=== PATIENT | male | born 1955 | race Caucasian/White ===

== ENCOUNTER 2018-09-18 13:19 | Inpatient (IN) | payer MEDICARE, MEDICAID ==
[2018-09-18] MEDS ORDERED: Albuterol/Ipratropium 3.0-0.5 MG/3 ML Neb Soln NEB ONE (13:25)
[2018-09-18] MEDS ORDERED: Sodium Chloride 0.9% 10 ML Syringe FLUSH PRN (13:26)
--- NOTE | 2018-09-18 13:36 | EDM.PDOC ---
ED HPI GENERAL MEDICAL PROBLEM - General Chief Complaint: Respiratory Problem Stated Complaint: SHORTNESS OF BREATH Time Seen by Provider: 09/18/18 13:25 Source of Information: Reports: Patient, Provider History Limitations: Reports: Other (no available old records) - History of Present Illness INITIAL COMMENTS - FREE TEXT/NARRATIVE: 62 yo male sent from the clinic to the ER for hypoxia with sats in the upper 70' s. Was sent over with a simple mask with oxygen running at 4 liters/min. Is a known smoker. Lives with a brother who is with him here today. Has known COPD. Onset: Gradual Duration: Day(s):, Getting Worse Location: Reports: Chest Quality: Reports: Other (no chest pains) Severity: Severe Improves with: Reports: Other (oxygen) Worsens with: Reports: Movement (exertion) Context: Reports: Other (known COPD) Associated Symptoms: Reports: Cough, Shortness of Breath. Denies: Chest Pain, Diaphoresis, Fever/Chills Treatments FIELD APPLICATION ENGINEER: Reports: Other (see below) (oxygen intiated in the clinic) Bilateral Leg Pain Score (Numeric/FACES): 8 - Related Data Allergies Allergy/AdvReac Type Severity Reaction Status Date / Time metformin Allergy Hives Verified 09/18/18 13:34 Home Meds: Home Meds Albuterol [Proventil HFA] 2 puff INH ASDIRECTED PRN 09/18/18 [History] Albuterol/Ipratropium [DuoNeb 3.0-0.5 MG/3 ML] 3 ml INH ASDIRECTED PRN 09/18/18 [History] Aspirin [Halfprin] 81 mg PO DAILY 09/18/18 [History] Budesonide/Formoterol [Symbicort 160-4.5 MCG] 2 puff INH BID 09/18/18 [History] Glucosamn/Condroitn/C/Mn/[place] [[facility]vs Glucosamine Chondroit Cplt] 1 tab PO DAILY 09/18/18 [History] Levothyroxine [Synthroid] 50 mcg PO DAILY 09/18/18 [History] Lisinopril 40 mg PO DAILY 09/18/18 [History] Omeprazole Magnesium [Prilosec Otc] 20 mg PO DAILY 09/18/18 [History] Vitamin E 1,000 unit PO DAILY 09/18/18 [History] atorvaSTATin [Lipitor] 40 mg PO DAILY 09/18/18 [History] ED ROS GENERAL - Review of Systems Review Of Systems: See Below Constitutional: Reports: No Symptoms HEENT: Reports: No Symptoms Respiratory: Reports: Shortness of Breath, Wheezing, Cough. Denies: Pleuritic Chest Pain, Hemoptysis Cardiovascular: Reports: No Symptoms Endocrine: Reports: No Symptoms GI/Abdominal: Reports: No Symptoms : Reports: No Symptoms Musculoskeletal: Reports: No Symptoms Skin: Reports: No Symptoms Neurological: Reports: No Symptoms Psychiatric: Reports: No Symptoms ED EXAM, GENERAL - Physical Exam Exam: See Below Exam Limited By: No Limitations General Appearance: Alert, WD/WN, Moderate Distress, Obese Eye Exam: Bilateral Eye: Normal Inspection Ears: Normal External Exam, Normal Canal, Normal TMs Ear Exam: Bilateral Ear: Auricle Normal, Canal Normal, TM normal Nose: Normal Inspection, No Blood Throat/Mouth: Normal Inspection, Normal Lips, Normal Oropharynx, Normal Voice, No Airway Compromise. No: Normal Teeth (edentulous, speech difficult to comprehend) Head: Atraumatic, Normocephalic Neck: Normal Inspection Respiratory/Chest: Decreased Breath Sounds, Wheezing, Other (tachypnea) Cardiovascular: Regular Rate, Rhythm GI/Abdominal: Normal Bowel Sounds, Soft, Non-Tender, No Distention Back Exam: Normal Inspection Extremities: Pedal Edema (trace pitting edema to both LE's below the knees.). No: No Pedal Edema Neurological: Alert, Oriented, CN II-XII Intact, Normal Cognition, No Motor/ Sensory Deficits Psychiatric: Normal Affect, Normal Mood Skin Exam: Warm, Dry, Intact, Normal Color, No Rash Course - Vital Signs Text/Narrative:: Dr. Roman called @ 1411h Last Recorded V/S: Last Vital Signs Temp 35.4 C 09/18/18 13:50 Pulse 84 09/18/18 13:50 Resp 26 H 09/18/18 13:50 BP 142/94 H 09/18/18 13:50 Pulse Ox 95 09/18/18 13:50 - Orders/Labs/Meds Orders: Active Orders 24 hr Category Date Time Status Oxygen Therapy Adult [Oxygen Therapy, ED] [RC] Care 09/18/18 13:27 Active ASDIRECTED RT Aerosol Therapy [RC] ASDIRECTED Care 09/18/18 13:25 Active RT Aerosol Therapy [RC] ASDIRECTED Care 09/18/18 13:50 Active ABG [BLOOD GAS ARTERIAL] [BG] Stat Lab 09/18/18 14:30 Ordered UA W/MICROSCOPIC [URIN] Stat Lab 09/18/18 13:25 Ordered Sodium Chloride 0.9% [Saline Flush] Med 09/18/18 13:26 Active 10 ml FLUSH ASDIRECTED PRN Saline Lock Insert [OM.PC] Routine Oth 09/18/18 13:26 Ordered Medication Orders Sodium Chloride (Saline Flush) 10 ml FLUSH ASDIRECTED PRN PRN Reason: Keep Vein Open Last Admin: 09/18/18 14:07 Dose: 10 ml Labs: Laboratory Tests 09/18/18 09/18/18 09/18/18 Range/Units 13:39 13:45 13:45 WBC 17.0 H (4.5-11.0) K/uL RBC 4.25 L (4.30-5.90) M/uL Hgb 11.7 L (12.0-15.0) g/dL Hct 35.5 L (40.0-54.0) % MCV 84 (80-98) fL MCH 28 (27-31) pg MCHC 33 (32-36) % Plt Count 405 H (150-400) K/uL D-Dimer, Quantitative (0.0-400.0) ng/mL Puncture Site Rt radial ABG pH 7.282 L (7.350-7.450) ABG pCO2 65.4 H (35.0-42.0) mmHg ABG pO2 74.8 L (75.0-100.0) mmHg ABG HCO3 29.9 H (22.0-26.0) mmol/L ABG Total CO2 27.9 H (23.0-27.0) mmol/L ABG O2 Saturation 92.6 L (95.0-98.0) % ABG O2 Content 15.0 (15.0-23.0) %vol ABG Base Excess 2.2 mm/L ABG Hemoglobin 11.9 L (13.5-18.0) g/dL ABG Oxyhemoglobin 89.2 % ABG Carboxyhemoglobin 2.7 H (0.0-1.6) % ABG Methemoglobin 1.0 % Ruddy Test Pass O2 Delivery Device Simple mask Oxygen Flow Rate 4 L Sodium 132 L (140-148) mmol/L Potassium 4.5 (3.6-5.2) mmol/L Chloride 93 L (100-108) mmol/L Carbon Dioxide 32 (21-32) mmol/L Anion Gap 11.5 (5.0-14.0) mmol/L BUN 27 H (7-18) mg/dL Creatinine 1.1 (0.8-1.3) mg/dL Est Cr Clr Drug Dosing 77.40 mL/min Estimated GFR (MDRD) > 60 (>60) Glucose 115 H (74-106) mg/dL Calcium 9.4 (8.5-10.1) mg/dL NT-Pro-B Natriuret Pep (5-125) pg/mL 09/18/18 09/18/18 Range/Units 13:45 13:46 WBC (4.5-11.0) K/uL RBC (4.30-5.90) M/uL Hgb (12.0-15.0) g/dL Hct (40.0-54.0) % MCV (80-98) fL MCH (27-31) pg MCHC (32-36) % Plt Count (150-400) K/uL D-Dimer, Quantitative 213 (0.0-400.0) ng/mL Puncture Site ABG pH (7.350-7.450) ABG pCO2 (35.0-42.0) mmHg ABG pO2 (75.0-100.0) mmHg ABG HCO3 (22.0-26.0) mmol/L ABG Total CO2 (23.0-27.0) mmol/L ABG O2 Saturation (95.0-98.0) % ABG O2 Content (15.0-23.0) %vol ABG Base Excess mm/L ABG Hemoglobin (13.5-18.0) g/dL ABG Oxyhemoglobin % ABG Carboxyhemoglobin (0.0-1.6) % ABG Methemoglobin % Ruddy Test O2 Delivery Device Oxygen Flow Rate L Sodium (140-148) mmol/L Potassium (3.6-5.2) mmol/L Chloride (100-108) mmol/L Carbon Dioxide (21-32) mmol/L Anion Gap (5.0-14.0) mmol/L BUN (7-18) mg/dL Creatinine (0.8-1.3) mg/dL Est Cr Clr Drug Dosing mL/min Estimated GFR (MDRD) (>60) Glucose (74-106) mg/dL Calcium (8.5-10.1) mg/dL NT-Pro-B Natriuret Pep 96 (5-125) pg/mL Meds: Medications Generic Name Dose Route Start Last Admin Trade Name Freq PRN Reason Stop Dose Admin Sodium Chloride 10 ml 09/18/18 13:26 09/18/18 14:07 Saline Flush FLUSH 10 ml ASDIRECTED PRN Administration Keep Vein Open Discontinued Medications Generic Name Dose Route Start Last Admin Trade Name Freq PRN Reason Stop Dose Admin Albuterol 2.5 mg 09/18/18 13:50 09/18/18 14:08 Proventil Neb Soln NEB 09/18/18 13:51 2.5 mg ONETIME ONE Administration Albuterol/Ipratropium 3 ml 09/18/18 13:25 09/18/18 14:09 Duoneb 3.0-0.5 Mg/3 Ml NEB 09/18/18 13:26 3 ml ONETIME ONE Administration - Radiology Interpretation Free Text/Narrative:: CXR-some pulmonary vascular congestion Departure - Departure Time of Disposition: 14:35 Disposition: Admitted As Inpatient 67 Condition: Poor Clinical Impression: COPD exacerbation, Hypoxia - Discharge Information *PRESCRIPTION DRUG MONITORING PROGRAM REVIEWED*: Not Applicable *COPY OF PRESCRIPTION DRUG MONITORING REPORT IN PATIENT RAJ: Not Applicable Referrals: Zoila Sandra MD [Primary Care Provider] - Forms: ED Department Discharge - My Orders Last 24 Hours: My Active Orders 09/18/18 13:25 RT Aerosol Therapy [RC] ASDIRECTED UA W/MICROSCOPIC [URIN] Stat 09/18/18 13:26 Sodium Chloride 0.9% [Saline Flush] 10 ml FLUSH ASDIRECTED PRN Saline Lock Insert [OM.PC] Routine 09/18/18 13:27 Oxygen Therapy Adult [Oxygen Therapy, ED] [RC] ASDIRECTED 09/18/18 13:50 RT Aerosol Therapy [RC] ASDIRECTED 09/18/18 14:30 ABG [BLOOD GAS ARTERIAL] [BG] Stat - Assessment/Plan Last 24 Hours: My Active Orders 09/18/18 13:25 RT Aerosol Therapy [RC] ASDIRECTED UA W/MICROSCOPIC [URIN] Stat 09/18/18 13:26 Sodium Chloride 0.9% [Saline Flush] 10 ml FLUSH ASDIRECTED PRN Saline Lock Insert [OM.PC] Routine 09/18/18 13:27 Oxygen Therapy Adult [Oxygen Therapy, ED] [RC] ASDIRECTED 09/18/18 13:50 RT Aerosol Therapy [RC] ASDIRECTED 09/18/18 14:30 ABG [BLOOD GAS ARTERIAL] [BG] Stat
[2018-09-18] MEDS ORDERED: Albuterol 0.083% 2.5 MG/3 ML Neb Soln NEB ONE (13:50)
--- NOTE | 2018-09-18 13:56 | CR ---
CHEST: Portable CLINICAL HISTORY:SOB COMPARISON:None FINDINGS: Heart size is normal. There are atherosclerotic changes in the aorta. There is some pulmonary vascular cephalization. There is some blunting left costophrenic angle. Impression: Limited portable study Pulmonary vascular cephalization may represent some pulmonary venous hypertension. Some of this may be positional Blunting left costophrenic angle may be scarring or some minimal pleural fluid
[2018-09-18] MEDS ORDERED: Sodium Chloride 0.9% 250 ML IV SCH (14:45)
[2018-09-18] MEDS ORDERED: Heparin Sodium 5,000 UNITS in Sodium Chloride 0.9% 500 ML IV SCH (15:00)
[2018-09-18] MEDS ORDERED: Succinylcholine 200 MG/10 ML MDV ONE (15:03)
[2018-09-18] MEDS ORDERED: Propofol 200 MG/20 ML SDV ONE (15:03)
[2018-09-18] MEDS ORDERED: methylPREDNISolone Sodium Succinate 125 MG/2 ML SDV IVPUSH ONE (15:06)
--- NOTE | 2018-09-18 15:18 | PCM.HP ---
H&P History of Present Illness - General Date of Service: 09/18/18 Admit Problem/Dx: Admission Diagnosis/Problem Admission Diagnosis/Problem Acute bronchitis Source of Information: Family, Provider. No: Patient History Limitations: Reports: No Limitations - History of Present Illness Initial Comments - Free Text/Narative: Oren initially presented to the clinic with shortness of breath and cough but was sent to the emergency room after significant hypoxia was noted. He was obtunded initially and is now intubated and sedated so I'm not able to gather any history from the patient. History was gathered from emergency room providers and his brother. Per report he has been progressively short of breath over the past few days and has had a productive cough. His brother is unsure if he's been having any fevers or not. He has not reported any chest pain to his brother. His brother has not witnessed any vomiting. Initially in the emergency room he was awake and talking some but has become obtunded. He was started on noninvasive ventilation when repeat blood gases showed a significant rise in his carbon dioxide. Laboratory studies are remarkable for a white blood cell count of 17,000. He has acute respiratory failure with hypoxia and hypercapnia. Chest x-ray shows possible pneumonia on both the left and the right with a left pleural effusion versus left lateral infiltrate. There is also concern for volume overload. Since presentation to the emergency room the patient has had a steady decline in his blood pressure. He will be admitted to the intensive care unit for management of bilateral pneumonia with respiratory failure and possible component of congestive heart failure. Bilateral Leg Pain Score (Numeric/FACES): 8 - Related Data Allergies/Adverse Reactions: Allergies Allergy/AdvReac Type Severity Reaction Status Date / Time metformin Allergy Hives Verified 09/18/18 13:34 Home Medications: Home Meds Albuterol [Proventil HFA] 2 puff INH ASDIRECTED PRN 09/18/18 [History] Albuterol/Ipratropium [DuoNeb 3.0-0.5 MG/3 ML] 3 ml INH ASDIRECTED PRN 09/18/18 [History] Aspirin [Halfprin] 81 mg PO DAILY 09/18/18 [History] Budesonide/Formoterol [Symbicort 160-4.5 MCG] 2 puff INH BID 09/18/18 [History] Glucosamn/Condroitn/C/Mn/[place] [[facility]vs Glucosamine Chondroit Cplt] 1 tab PO DAILY 09/18/18 [History] Levothyroxine [Synthroid] 50 mcg PO DAILY 09/18/18 [History] Lisinopril 40 mg PO DAILY 09/18/18 [History] Omeprazole Magnesium [Prilosec Otc] 20 mg PO DAILY 09/18/18 [History] Vitamin E 1,000 unit PO DAILY 09/18/18 [History] atorvaSTATin [Lipitor] 40 mg PO DAILY 09/18/18 [History] Past Medical History Cardiovascular History: Reports: Hypertension Respiratory History: Reports: Bronchitis, Recurrent Gastrointestinal History: Reports: GERD Musculoskeletal History: Reports: Arthritis Endocrine/Metabolic History: Reports: Obesity/BMI 30+ Social & Family History - Family History Family Medical History: Unobtainable - Tobacco Use Smoking Status *Q: Current Every Day Smoker Years of Tobacco use: 45 Packs/Tins Daily: 1.5 - Caffeine Use Caffeine Use: Reports: None - Alcohol Use Alcohol Use History: No - Recreational Drug Use Recreational Drug Use: No H&P Review of Systems - Review of Systems: Review Of Systems: Unable To Obtain Free Text/Narrative: Pt is obtunded Exam - Exam Exam: See Below - Vital Signs Vital Signs: Last Vital Signs Temp 35.4 C 09/18/18 13:50 Pulse 75 09/18/18 14:38 Resp 30 H 09/18/18 14:38 BP 138/55 L 09/18/18 14:38 Pulse Ox 92 L 09/18/18 14:38 Weight: 179.9 kg - Exam Quality Assessment: Supplemental Oxygen, Urinary Catheter, Restraints General: Mild Distress. No: Alert, Cooperative HEENT: Conjunctiva Clear, Mucosa Moist & [place], Other (No teeth). No: Scleral Icterus Neck: Supple, Trachea Midline. No: Lymphadenopathy (No teeth) Lungs: Normal Respiratory Effort (Increased work of breathing), Decreased Breath Sounds (Throughout), Crackles (Left lung base), Wheezing (Diffuse expiratory) Cardiovascular: Regular Rate, Regular Rhythm. No: Systolic Murmur GI/Abdominal Exam: Normal Bowel Sounds, Soft, Non-Tender, No Distention, Other ( Obese) Extremities: Pedal Edema ( pending edema to the knee bilaterally), Joint Swelling (Left knee), Increased Warmth (Left knee) Peripheral Pulses: 1+: Dorsalis Pedis (L), Dorsalis Pedis (R) Skin: Warm, Dry, Ecchymosis (Left knee) Neuro Extensive - Mental Status: No: Alert, Nl Response to Commands Neuro Extensive - Motor, Sensory, Reflexes: No: Facial Palsy (R), Facial palsy ( L), Tremor Psychiatric: Agitated (Mild). No: Alert - Patient Data Lab Results Last 24 hrs: Laboratory Results - last 24 hr 09/18/18 09/18/18 09/18/18 Range/Units 13:39 13:45 13:45 WBC 17.0 H (4.5-11.0) K/uL RBC 4.25 L (4.30-5.90) M/uL Hgb 11.7 L (12.0-15.0) g/dL Hct 35.5 L (40.0-54.0) % MCV 84 (80-98) fL MCH 28 (27-31) pg MCHC 33 (32-36) % Plt Count 405 H (150-400) K/uL D-Dimer, Quantitative (0.0-400.0) ng/mL Puncture Site Rt radial ABG pH 7.282 L (7.350-7.450) ABG pCO2 65.4 H (35.0-42.0) mmHg ABG pO2 74.8 L (75.0-100.0) mmHg ABG HCO3 29.9 H (22.0-26.0) mmol/L ABG Total CO2 27.9 H (23.0-27.0) mmol/L ABG O2 Saturation 92.6 L (95.0-98.0) % ABG O2 Content 15.0 (15.0-23.0) %vol ABG Base Excess 2.2 mm/L ABG Hemoglobin 11.9 L (13.5-18.0) g/dL ABG Oxyhemoglobin 89.2 % ABG Carboxyhemoglobin 2.7 H (0.0-1.6) % ABG Methemoglobin 1.0 % Ruddy Test Pass O2 Delivery Device Simple mask Oxygen Flow Rate 4 L Sodium 132 L (140-148) mmol/L Potassium 4.5 (3.6-5.2) mmol/L Chloride 93 L (100-108) mmol/L Carbon Dioxide 32 (21-32) mmol/L Anion Gap 11.5 (5.0-14.0) mmol/L BUN 27 H (7-18) mg/dL Creatinine 1.1 (0.8-1.3) mg/dL Est Cr Clr Drug Dosing 77.40 mL/min Estimated GFR (MDRD) > 60 (>60) Glucose 115 H (74-106) mg/dL Calcium 9.4 (8.5-10.1) mg/dL NT-Pro-B Natriuret Pep (5-125) pg/mL 09/18/18 09/18/18 09/18/18 Range/Units 13:45 13:46 14:30 WBC (4.5-11.0) K/uL RBC (4.30-5.90) M/uL Hgb (12.0-15.0) g/dL Hct (40.0-54.0) % MCV (80-98) fL MCH (27-31) pg MCHC (32-36) % Plt Count (150-400) K/uL D-Dimer, Quantitative 213 (0.0-400.0) ng/mL Puncture Site Lt radial ABG pH 7.220 L (7.350-7.450) ABG pCO2 79.7 H* (35.0-42.0) mmHg ABG pO2 57.9 L (75.0-100.0) mmHg ABG HCO3 31.4 H (22.0-26.0) mmol/L ABG Total CO2 29.9 H (23.0-27.0) mmol/L ABG O2 Saturation 81.8 L (95.0-98.0) % ABG O2 Content 13.0 L (15.0-23.0) %vol ABG Base Excess 2.0 mm/L ABG Hemoglobin 11.7 L (13.5-18.0) g/dL ABG Oxyhemoglobin 79.0 % ABG Carboxyhemoglobin 2.5 H (0.0-1.6) % ABG Methemoglobin 0.9 % Ruddy Test Pass O2 Delivery Device Nasal cannula Oxygen Flow Rate L Sodium (140-148) mmol/L Potassium (3.6-5.2) mmol/L Chloride (100-108) mmol/L Carbon Dioxide (21-32) mmol/L Anion Gap (5.0-14.0) mmol/L BUN (7-18) mg/dL Creatinine (0.8-1.3) mg/dL Est Cr Clr Drug Dosing mL/min Estimated GFR (MDRD) (>60) Glucose (74-106) mg/dL Calcium (8.5-10.1) mg/dL NT-Pro-B Natriuret Pep 96 (5-125) pg/mL Result Diagrams: 09/19/18 05:11 09/19/18 05:11 Imaging Impressions Last 24 hrs: Chest x-ray - image from the emergency room was personally reviewed - left lower lobe consolidation versus effusion. There appears to be some pulmonary vascular congestion. No obvious mass. Chest x-ray postintubation - image personally reviewed - endotracheal tube tip is near the mayra and will be pulled back 2 cm. He appears to have a right lower lung infiltrate as well as a probable left lower lung infiltrate. Still has some pulmonary vascular congestion. Bedside echocardiogram - images very difficult to obtain given the body habitus. He appears to have a mildly to moderately enlarged right ventricle but function appears normal. Left ventricular function is normal as far as I can tell. I'm unable to assess any of his valves. Unable to obtain images other than the parasternal view. Unable to visualize the inferior vena cava. EKG INTERPRETATION EKG Date: 09/18/18 Rhythm: NSR Rate (Beats/Min): 71 [place]: Normal P-Wave: Present QRS: Normal ST-T: Normal QT: Normal Comparison: NA - No Prior EKG *Q Meaningful Use (ADM) - VTE Risk Assess *Q Each Risk Factor Represents 1 Point: Swollen Legs, Current, Obesity ( BMI > 25 kg/m2), Congestive heart failure (CHF), Serious lung disease including pneumonia Total Score 1 Point Risk Factors: 4 Each Risk Factor Represents 2 Points: Age 60 - 74 Years Total Score 2 Point Risk Factors: 2 Each Risk Factor Represents 3 Points: None Total Score 3 Point Risk Factors: 0 Each Risk Factor Represents 5 Points: None Total Score 5 Point Risk Factors: 0 Venous Thromboembolism Risk Factor Score *Q: 6 - Problem List (1) Bilateral pneumonia SNOMED Code(s): 699001100 ICD Code: J18.9 - PNEUMONIA, UNSPECIFIED ORGANISM Status: Acute Current Visit: Yes Qualifiers: Pneumonia type: due to unspecified organism Lung location: lower lobe of lung Qualified Code(s): J18.1 - Lobar pneumonia, unspecified organism (2) Acute respiratory failure with hypoxia and hypercapnia SNOMED Code(s): 379960953 ICD Code: J96.01 - ACUTE RESPIRATORY FAILURE WITH HYPOXIA; J96.02 - ACUTE RESPIRATORY FAILURE WITH HYPERCAPNIA Status: Acute Current Visit: Yes (3) COPD exacerbation SNOMED Code(s): 716356386 ICD Code: J44.1 - CHRONIC OBSTRUCTIVE PULMONARY DISEASE W (ACUTE) EXACERBATION Status: Acute Current Visit: Yes (4) Tobacco dependence SNOMED Code(s): 64278147 ICD Code: F17.200 - NICOTINE DEPENDENCE, UNSPECIFIED, UNCOMPLICATED Status : Chronic Current Visit: Yes (5) Morbid obesity SNOMED Code(s): 050912968 ICD Code: E66.01 - MORBID (SEVERE) OBESITY DUE TO EXCESS CALORIES Status: Chronic Current Visit: Yes Problem List Initiated/Reviewed/Updated: Yes Orders Last 24hrs: Active Orders 24 hr Category Date Time Status Patient Status Manage Transfer [TRANSFER] Routine ADT 09/18/18 15:07 Active BIPAP Adult [RT BiPAP/CPAP] [RC] ASDIRECTED Care 09/18/18 14:33 Active Oxygen Therapy Adult [Oxygen Therapy, ED] [RC] Care 09/18/18 13:27 Active ASDIRECTED RT Aerosol Therapy [RC] ASDIRECTED Care 09/18/18 13:25 Active RT Aerosol Therapy [RC] ASDIRECTED Care 09/18/18 13:50 Active UA W/MICROSCOPIC [URIN] Stat Lab 09/18/18 13:25 Ordered Heparin Sodium 5,000 units Med 09/18/18 15:00 Active Sodium Chloride 0.9% [Normal Saline] 500 ml IV ASDIRECTED Sodium Chloride 0.9% [Normal Saline] 250 ml Med 09/18/18 14:45 Active IV ASDIRECTED Sodium Chloride 0.9% [Saline Flush] Med 09/18/18 13:26 Active 10 ml FLUSH ASDIRECTED PRN Saline Lock Insert [OM.PC] Routine Oth 09/18/18 13:26 Ordered Resuscitation Status Routine Resus Stat 09/18/18 15:08 Ordered Medication Orders Sodium Chloride (Normal Saline) 250 mls @ 500 mls/hr IV ASDIRECTED EVGENY Last Admin: 09/18/18 14:47 Dose: 500 mls/hr Heparin Sodium (Porcine) 5,000 (units/ Sodium Chloride) 501 mls @ 5 mls/hr IV ASDIRECTED EVGENY Sodium Chloride (Saline Flush) 10 ml FLUSH ASDIRECTED PRN PRN Reason: Keep Vein Open Last Admin: 09/18/18 14:07 Dose: 10 ml Assessment/Plan Comment:: ASSESSMENT AND PLAN - Bilateral pneumonia with sepsis - complicated by acute respiratory failure with hypoxia and hypercapnia. D-dimer negative. BNP normal. Cardiac function appears normal based on parasternal views which were limited. Chest x-ray suggestive of bilateral pneumonia. Patient was intubated in the emergency room after declining mental status and increasing PCO2. Initial blood gas after intubation shows a slight improvement in the PCO2 and ventilator was adjusted. He has received initial dose of steroids in the emergency room. -Antibiotic coverage with levofloxacin and Pip/Tazo -IV steroids -Scheduled and as needed nebulizers -Mechanical ventilation -Sputum culture if able -Repeat ABGs shortly and as needed until PCO2 normalizes -ABGs and chest x-ray in the morning COPD with acute exacerbation - History of tobacco dependence and patient is chronically on inhalers and nebulizers for management. Suspect pneumonia as the trigger as discussed above. -Management as above Tobacco dependence - Patient will need strong cessation recommendations once he is extubated. Morbid obesity - BMI greater than 50. Essential hypertension - normally on medications to lower blood pressure but blood pressure is significantly low at this time. He is receiving IV fluid boluses. Antihypertensive medications will be held. Maintenance issues - - DVT prophylaxis - enoxaparin - GI prophylaxis - PPI - Nutrition - Nothing by mouth - [place] catheter - placed in the emergency room for strict intake and output monitoring CODE STATUS - Full code Admission justification - This patient will be admitted for inpatient services and is medically appropriate meeting medical necessity for inpatient admission as outlined in my documentation. I reasonably expect the patient will require inpatient services that span a period time over 2 midnights. I reasonably expect this patient to be discharged or transferred within 96 hours [facility]. Disposition - I would anticipate discharge home if he survives the hospital stay Primary care physician - Dr Jocy Roman M.D.
[2018-09-18] MEDS ORDERED: Ondansetron 4 MG/2 ML SDV IV PRN (16:29)
[2018-09-18] MEDS ORDERED: Ondansetron 4 MG Tab.DIS PO PRN (16:29)
[2018-09-18] MEDS ORDERED: Albuterol 0.083% 2.5 MG/3 ML Neb Soln NEB PRN (16:29)
[2018-09-18] MEDS ORDERED: Furosemide 40 MG/4 ML VIAL IVPUSH ONE (16:45)
[2018-09-18] MEDS ORDERED: Midazolam 1 MG/ML 2 ML SDV IVPUSH ONE (16:52)
[2018-09-18] MEDS ORDERED: Midazolam 1 MG/ML 2 ML SDV ONE (16:53)
[2018-09-18] MEDS: Midazolam 1 MG/ML 2 ML SDV IVPUSH ONE (17:00)
[2018-09-18] MEDS: Levofloxacin/Dextrose 5%-Water 750 MG in Premix Bag 1 BAG IV SCH (17:05)
[2018-09-18] MEDS: Pantoprazole 40 MG Vial IV SCH (17:10)
[2018-09-18] MEDS ORDERED: Sodium Chloride 0.9% 1,000 ML IV SCH ×2 (17:15→18:15)
[2018-09-18] MEDS: Piperacillin/Tazobactam/Dext 3.375 GM in Premix Bag 1 BAG IV SCH ×2 (17:19→23:59)
[2018-09-18] MEDS: Sodium Chloride 0.9% 1,000 ML IV SCH ×4 (17:46→21:11)
[2018-09-18] MEDS ORDERED: cefTRIAXone 2 GM in Sodium Chloride 0.9% 50 ML IV SCH (18:00)
[2018-09-18] MEDS ORDERED: Vancomycin 1 GM SDV ONE (18:39)
[2018-09-18] MEDS ORDERED: Vancomycin 2 GM in Sodium Chloride 0.9% 500 ML IV SCH (19:00)
[2018-09-18] MEDS: Albuterol/Ipratropium 3.0-0.5 MG/3 ML Neb Soln NEB SCH (20:39)
[2018-09-18] MEDS: methylPREDNISolone Sodium Succinate 125 MG/2 ML SDV IVPUSH SCH (23:21)
--- NOTE | 2018-09-18 23:31 | ANES ---
DATE OF SERVICE: 09/18/2018 PROCEDURE PERFORMED: Emergency intubation and arterial line placement. TECHNIQUE: I was called to the emergency room at approximately 2 o'clock this afternoon for a gentleman, who was in respiratory distress and respiratory failure by Dr. Michael Roman for emergency intubation. Upon arrival to the ER, the patient was on a BiPAP mask. O2 saturations were 93% to 94% on 35% FiO2. Respirations were high at approximately 30 to 33 respirations per minute. Blood pressure was stable in the 120s. Dr. Roman is requesting an intubation due to the patient's very high pCO2 levels and respiratory rate. The patient is obese with a big nagel, does not have any teeth though. The patient was laid in the supine position with the head of the bed elevated slightly. BiPAP machine was turned up to 100% FiO2. O2 saturations increased to 100% shortly after. O2 saturations were 100%, I proceeded to give the patient 50 mg of propofol and 170 mg of succinylcholine. A direct laryngoscopy was done with a MACH3 blade. Grade one view was noted. Cords were clear. No signs of aspiration. An 8.0 endotracheal tube was inserted through the vocal cords and secured at approximately 24 at the lip. Positive end-tidal CO2 was noted. Positive bilateral breath sounds were noted. The patient maintained saturations through the intubation of 100%. Blood pressure maintained in the 110s to 120s after intubation. The ET tube was taped and secured via respiratory therapy and the patient was being sufficiently Ambu'd by Respiratory Therapy. I then turned my attention to the arterial line placement. Right side pulse was noted, but was unable to place an arterial line in on that side. I turned my attention to the left radial pulse where it was palpable, but very weak. Ultrasound was used with success to place the arterial line. Using ultrasound, I was able to insert a 20-gauge Arrow catheter into his left radial. Positive bright red blood was noted on flash. Catheter was easily threaded. Arterial line was connected to the Arrow catheter. Appropriate waveform was noted on the monitor. Line was then secured using a 2-0 Prolene stitch, Tegaderm and tape. The patient will be transferred to the ICU shortly. An additional 150 mg of propofol was used about over 5 to 10 minutes to keep the patient sedated while I was placing the arterial line, so 200 mg total propofol was used during my time there. The patient will be taken over to ICU and monitored very closely by Dr. Roman. Juan Alberto Canchola CRNA /[id number]
[2018-09-19] MEDS: Acetaminophen 650 MG Supp RECTAL PRN ×2 (00:17→04:57)
[2018-09-19] MEDS: Piperacillin/Tazobactam/Dext 3.375 GM in Premix Bag 1 BAG IV SCH ×4 (05:55→23:52)
[2018-09-19] MEDS: Albuterol/Ipratropium 3.0-0.5 MG/3 ML Neb Soln NEB SCH ×4 (07:19→20:37)
[2018-09-19] MEDS: methylPREDNISolone Sodium Succinate 125 MG/2 ML SDV IVPUSH SCH ×3 (07:52→22:49)
[2018-09-19] MEDS: Enoxaparin 40 MG/0.4 ML Syringe SUBCUT SCH (08:50)
--- NOTE | 2018-09-19 08:57 | CR ---
CHEST: Portable CLINICAL HISTORY:Intubation COMPARISON:09/18/2018 FINDINGS: There is an endotracheal tube in the distal trachea approximately 13 mm from the mayra. There is vascular cephalization. Interstitial markings are increased diffusely. There is blunting of the left costophrenic angle. Impression: Endotracheal intubation tube in the distal trachea Increased vascular and interstitial markings suggests CHF. Some of this may be chronic interstitial disease. Short-term follow-up recommended
--- NOTE | 2018-09-19 09:03 | CR ---
CHEST: Portable CLINICAL HISTORY:Intubation COMPARISON:09/18/2018 FINDINGS: Endotracheal tube is now in the mid trachea. There is persistent diffuse prominence to the lung markings. Vascularity is cephalized similar to prior study. Impression: Vascular cephalization and prominent lung markings persist unchanged Endotracheal tube is now in the mid trachea
--- NOTE | 2018-09-19 09:08 | PCM.PN ---
- General Info Date of Service: 09/19/18 Subjective Update: The patient remains intubated and sedated. Overnight his blood pressures were borderline but in the lower normal range. Heart rate has been stable. No significant fevers. Throughout the night they were able to decrease his FiO2 slightly but he is now back up to 60% FiO2. He continues to have significant secretions in his mouth but not a lot of secretions with endotracheal aspirate. Sputum sample revealed gram-positive cocci and small gram-negative rods. Identification of these organisms is pending. Urine output has been sluggish. Functional Status: Reports: Other (intubated and sedated) - Review of Systems General: Denies: Fever - Patient Data Vitals - Most Recent: Last Vital Signs Temp 36.2 C 09/19/18 08:54 Pulse 88 09/19/18 08:54 Resp 22 H 09/19/18 08:54 BP 88/49 L 09/19/18 08:54 Pulse Ox 88 L 09/19/18 08:54 Weight - Most Recent: 179.9 kg I&O - Last 24 Hours: Intake & Output 09/18/18 09/19/18 09/19/18 22:59 06:59 14:59 Intake Total 2213 4317 Output Total 425 310 100 Balance 1788 4007 -100 Lab Results Last 24 Hours: Laboratory Results - last 24 hr 09/18/18 09/18/18 09/18/18 Range/Units 13:39 13:45 13:45 WBC 17.0 H (4.5-11.0) K/uL RBC 4.25 L (4.30-5.90) M/uL Hgb 11.7 L (12.0-15.0) g/dL Hct 35.5 L (40.0-54.0) % MCV 84 (80-98) fL MCH 28 (27-31) pg MCHC 33 (32-36) % Plt Count 405 H (150-400) K/uL D-Dimer, Quantitative (0.0-400.0) ng/mL Puncture Site Rt radial ABG pH 7.282 L (7.350-7.450) ABG pCO2 65.4 H (35.0-42.0) mmHg ABG pO2 74.8 L (75.0-100.0) mmHg ABG HCO3 29.9 H (22.0-26.0) mmol/L ABG Total CO2 27.9 H (23.0-27.0) mmol/L ABG O2 Saturation 92.6 L (95.0-98.0) % ABG O2 Content 15.0 (15.0-23.0) %vol ABG Base Excess 2.2 mm/L ABG Hemoglobin 11.9 L (13.5-18.0) g/dL ABG Oxyhemoglobin 89.2 % ABG Carboxyhemoglobin 2.7 H (0.0-1.6) % ABG Methemoglobin 1.0 % Ruddy Test Pass O2 Delivery Device Simple mask Oxygen Flow Rate 4 L Sodium 132 L (140-148) mmol/L Potassium 4.5 (3.6-5.2) mmol/L Chloride 93 L (100-108) mmol/L Carbon Dioxide 32 (21-32) mmol/L Anion Gap 11.5 (5.0-14.0) mmol/L BUN 27 H (7-18) mg/dL Creatinine 1.1 (0.8-1.3) mg/dL Est Cr Clr Drug Dosing 77.40 mL/min Estimated GFR (MDRD) > 60 (>60) Glucose 115 H (74-106) mg/dL Lactic Acid (0.4-2.0) mmol/L Calcium 9.4 (8.5-10.1) mg/dL Troponin I (0.000-0.056) ng/mL C-Reactive Protein (0.0-0.3) mg/dL NT-Pro-B Natriuret Pep (5-125) pg/mL Urine Color Urine Appearance Urine pH (4.5-8.0) Ur Specific [place] (1.008-1.030) Urine Protein (NEGATIVE) mg/dL Urine Glucose (UA) (NEGATIVE) mg/dL Urine Ketones (NEGATIVE) mg/dL Urine Occult Blood (NEGATIVE) Urine Nitrite (NEGAITVE) Urine Bilirubin (NEGATIVE) Urine Urobilinogen (NORMAL) mg/dL Ur Leukocyte Esterase (NEGATIVE) Urine RBC (0-5) Urine WBC (0-5) Ur Epithelial Cells Amorphous Sediment Urine Bacteria Urine Mucus 09/18/18 09/18/18 09/18/18 Range/Units 13:45 13:46 14:30 WBC (4.5-11.0) K/uL RBC (4.30-5.90) M/uL Hgb (12.0-15.0) g/dL Hct (40.0-54.0) % MCV (80-98) fL MCH (27-31) pg MCHC (32-36) % Plt Count (150-400) K/uL D-Dimer, Quantitative 213 (0.0-400.0) ng/mL Puncture Site Lt radial ABG pH 7.220 L (7.350-7.450) ABG pCO2 79.7 H* (35.0-42.0) mmHg ABG pO2 57.9 L (75.0-100.0) mmHg ABG HCO3 31.4 H (22.0-26.0) mmol/L ABG Total CO2 29.9 H (23.0-27.0) mmol/L ABG O2 Saturation 81.8 L (95.0-98.0) % ABG O2 Content 13.0 L (15.0-23.0) %vol ABG Base Excess 2.0 mm/L ABG Hemoglobin 11.7 L (13.5-18.0) g/dL ABG Oxyhemoglobin 79.0 % ABG Carboxyhemoglobin 2.5 H (0.0-1.6) % ABG Methemoglobin 0.9 % Ruddy Test Pass O2 Delivery Device Nasal cannula Oxygen Flow Rate L Sodium (140-148) mmol/L Potassium (3.6-5.2) mmol/L Chloride (100-108) mmol/L Carbon Dioxide (21-32) mmol/L Anion Gap (5.0-14.0) mmol/L BUN (7-18) mg/dL Creatinine (0.8-1.3) mg/dL Est Cr Clr Drug Dosing mL/min Estimated GFR (MDRD) (>60) Glucose (74-106) mg/dL Lactic Acid (0.4-2.0) mmol/L Calcium (8.5-10.1) mg/dL Troponin I (0.000-0.056) ng/mL C-Reactive Protein (0.0-0.3) mg/dL NT-Pro-B Natriuret Pep 96 (5-125) pg/mL Urine Color Urine Appearance Urine pH (4.5-8.0) Ur Specific [place] (1.008-1.030) Urine Protein (NEGATIVE) mg/dL Urine Glucose (UA) (NEGATIVE) mg/dL Urine Ketones (NEGATIVE) mg/dL Urine Occult Blood (NEGATIVE) Urine Nitrite (NEGAITVE) Urine Bilirubin (NEGATIVE) Urine Urobilinogen (NORMAL) mg/dL Ur Leukocyte Esterase (NEGATIVE) Urine RBC (0-5) Urine WBC (0-5) Ur Epithelial Cells Amorphous Sediment Urine Bacteria Urine Mucus 09/18/18 09/18/18 09/18/18 Range/Units 15:47 16:29 16:45 WBC (4.5-11.0) K/uL RBC (4.30-5.90) M/uL Hgb (12.0-15.0) g/dL Hct (40.0-54.0) % MCV (80-98) fL MCH (27-31) pg MCHC (32-36) % Plt Count (150-400) K/uL D-Dimer, Quantitative (0.0-400.0) ng/mL Puncture Site Line ABG pH 7.211 L (7.350-7.450) ABG pCO2 74.3 H* (35.0-42.0) mmHg ABG pO2 64.8 L (75.0-100.0) mmHg ABG HCO3 28.6 H (22.0-26.0) mmol/L ABG Total CO2 27.6 H (23.0-27.0) mmol/L ABG O2 Saturation 86.9 L (95.0-98.0) % ABG O2 Content 12.9 L (15.0-23.0) %vol ABG Base Excess -0.2 mm/L ABG Hemoglobin 10.9 L (13.5-18.0) g/dL ABG Oxyhemoglobin 84.4 % ABG Carboxyhemoglobin 1.9 H (0.0-1.6) % ABG Methemoglobin 1.0 % Ruddy Test TNP O2 Delivery Device Ventilator Oxygen Flow Rate L Sodium (140-148) mmol/L Potassium (3.6-5.2) mmol/L Chloride (100-108) mmol/L Carbon Dioxide (21-32) mmol/L Anion Gap (5.0-14.0) mmol/L BUN (7-18) mg/dL Creatinine (0.8-1.3) mg/dL Est Cr Clr Drug Dosing mL/min Estimated GFR (MDRD) (>60) Glucose (74-106) mg/dL Lactic Acid (0.4-2.0) mmol/L Calcium (8.5-10.1) mg/dL Troponin I (0.000-0.056) ng/mL C-Reactive Protein 1.30 H (0.0-0.3) mg/dL NT-Pro-B Natriuret Pep (5-125) pg/mL Urine Color Yellow Urine Appearance Clear Urine pH 1.0 L (4.5-8.0) Ur Specific [place] 1.005 L (1.008-1.030) Urine Protein Trace (NEGATIVE) mg/dL Urine Glucose (UA) Normal (NEGATIVE) mg/dL Urine Ketones Negative (NEGATIVE) mg/dL Urine Occult Blood Trace (NEGATIVE) Urine Nitrite Negative (NEGAITVE) Urine Bilirubin Negative (NEGATIVE) Urine Urobilinogen Normal (NORMAL) mg/dL Ur Leukocyte Esterase Negative (NEGATIVE) Urine RBC 0-5 (0-5) Urine WBC 0-5 (0-5) Ur Epithelial Cells Few Amorphous Sediment Moderate Urine Bacteria Moderate Urine Mucus Few 09/18/18 09/18/18 09/18/18 Range/Units 16:54 17:45 19:00 WBC (4.5-11.0) K/uL RBC (4.30-5.90) M/uL Hgb (12.0-15.0) g/dL Hct (40.0-54.0) % MCV (80-98) fL MCH (27-31) pg MCHC (32-36) % Plt Count (150-400) K/uL D-Dimer, Quantitative (0.0-400.0) ng/mL Puncture Site A-line A-line ABG pH 7.225 L 7.222 L (7.350-7.450) ABG pCO2 64.6 H 63.7 H (35.0-42.0) mmHg ABG pO2 92.0 89.2 (75.0-100.0) mmHg ABG HCO3 25.8 25.3 (22.0-26.0) mmol/L ABG Total CO2 24.8 24.3 (23.0-27.0) mmol/L ABG O2 Saturation 95.3 94.7 L (95.0-98.0) % ABG O2 Content 13.6 L 13.9 L (15.0-23.0) %vol ABG Base Excess -2.2 -2.7 mm/L ABG Hemoglobin 10.3 L 10.6 L (13.5-18.0) g/dL ABG Oxyhemoglobin 92.8 92.7 % ABG Carboxyhemoglobin 1.6 1.2 (0.0-1.6) % ABG Methemoglobin 1.0 0.9 % Ruddy Test A-line A-line O2 Delivery Device Ventilator Ventilator Oxygen Flow Rate L Sodium (140-148) mmol/L Potassium (3.6-5.2) mmol/L Chloride (100-108) mmol/L Carbon Dioxide (21-32) mmol/L Anion Gap (5.0-14.0) mmol/L BUN (7-18) mg/dL Creatinine (0.8-1.3) mg/dL Est Cr Clr Drug Dosing mL/min Estimated GFR (MDRD) (>60) Glucose (74-106) mg/dL Lactic Acid (0.4-2.0) mmol/L Calcium (8.5-10.1) mg/dL Troponin I < 0.017 (0.000-0.056) ng/mL C-Reactive Protein (0.0-0.3) mg/dL NT-Pro-B Natriuret Pep (5-125) pg/mL Urine Color Urine Appearance Urine pH (4.5-8.0) Ur Specific [place] (1.008-1.030) Urine Protein (NEGATIVE) mg/dL Urine Glucose (UA) (NEGATIVE) mg/dL Urine Ketones (NEGATIVE) mg/dL Urine Occult Blood (NEGATIVE) Urine Nitrite (NEGAITVE) Urine Bilirubin (NEGATIVE) Urine Urobilinogen (NORMAL) mg/dL Ur Leukocyte Esterase (NEGATIVE) Urine RBC (0-5) Urine WBC (0-5) Ur Epithelial Cells Amorphous Sediment Urine Bacteria Urine Mucus 09/18/18 09/18/18 09/19/18 Range/Units 19:00 21:00 05:11 WBC 13.1 H (4.5-11.0) K/uL RBC 3.84 L (4.30-5.90) M/uL Hgb 10.4 L (12.0-15.0) g/dL Hct 32.4 L (40.0-54.0) % MCV 84 (80-98) fL MCH 27 (27-31) pg MCHC 32 (32-36) % Plt Count 340 (150-400) K/uL D-Dimer, Quantitative (0.0-400.0) ng/mL Puncture Site Line ABG pH 7.282 L (7.350-7.450) ABG pCO2 52.1 H (35.0-42.0) mmHg ABG pO2 79.5 (75.0-100.0) mmHg ABG HCO3 23.8 (22.0-26.0) mmol/L ABG Total CO2 22.6 L (23.0-27.0) mmol/L ABG O2 Saturation 94.2 L (95.0-98.0) % ABG O2 Content 13.6 L (15.0-23.0) %vol ABG Base Excess -2.6 mm/L ABG Hemoglobin 10.4 L (13.5-18.0) g/dL ABG Oxyhemoglobin 92.6 % ABG Carboxyhemoglobin 0.9 (0.0-1.6) % ABG Methemoglobin 0.8 % Ruddy Test TNP O2 Delivery Device Ventilator Oxygen Flow Rate L Sodium (140-148) mmol/L Potassium (3.6-5.2) mmol/L Chloride (100-108) mmol/L Carbon Dioxide (21-32) mmol/L Anion Gap (5.0-14.0) mmol/L BUN (7-18) mg/dL Creatinine (0.8-1.3) mg/dL Est Cr Clr Drug Dosing mL/min Estimated GFR (MDRD) (>60) Glucose (74-106) mg/dL Lactic Acid 0.4 (0.4-2.0) mmol/L Calcium (8.5-10.1) mg/dL Troponin I (0.000-0.056) ng/mL C-Reactive Protein (0.0-0.3) mg/dL NT-Pro-B Natriuret Pep (5-125) pg/mL Urine Color Urine Appearance Urine pH (4.5-8.0) Ur Specific [place] (1.008-1.030) Urine Protein (NEGATIVE) mg/dL Urine Glucose (UA) (NEGATIVE) mg/dL Urine Ketones (NEGATIVE) mg/dL Urine Occult Blood (NEGATIVE) Urine Nitrite (NEGAITVE) Urine Bilirubin (NEGATIVE) Urine Urobilinogen (NORMAL) mg/dL Ur Leukocyte Esterase (NEGATIVE) Urine RBC (0-5) Urine WBC (0-5) Ur Epithelial Cells Amorphous Sediment Urine Bacteria Urine Mucus 09/19/18 09/19/18 Range/Units 05:11 05:11 WBC (4.5-11.0) K/uL RBC (4.30-5.90) M/uL Hgb (12.0-15.0) g/dL Hct (40.0-54.0) % MCV (80-98) fL MCH (27-31) pg MCHC (32-36) % Plt Count (150-400) K/uL D-Dimer, Quantitative (0.0-400.0) ng/mL Puncture Site A-line ABG pH 7.349 L (7.350-7.450) ABG pCO2 43.6 H (35.0-42.0) mmHg ABG pO2 75.5 (75.0-100.0) mmHg ABG HCO3 23.4 (22.0-26.0) mmol/L ABG Total CO2 21.9 L (23.0-27.0) mmol/L ABG O2 Saturation 94.5 L (95.0-98.0) % ABG O2 Content 13.7 L (15.0-23.0) %vol ABG Base Excess -1.6 mm/L ABG Hemoglobin 10.4 L (13.5-18.0) g/dL ABG Oxyhemoglobin 93.2 % ABG Carboxyhemoglobin 0.5 (0.0-1.6) % ABG Methemoglobin 0.9 % Ruddy Test Passed O2 Delivery Device Ventilator Oxygen Flow Rate L Sodium 133 L (140-148) mmol/L Potassium 4.6 (3.6-5.2) mmol/L Chloride 100 (100-108) mmol/L Carbon Dioxide 25 (21-32) mmol/L Anion Gap 12.6 (5.0-14.0) mmol/L BUN 27 H (7-18) mg/dL Creatinine 1.2 (0.8-1.3) mg/dL Est Cr Clr Drug Dosing 70.95 mL/min Estimated GFR (MDRD) > 60 (>60) Glucose 130 H (74-106) mg/dL Lactic Acid (0.4-2.0) mmol/L Calcium 8.2 L (8.5-10.1) mg/dL Troponin I (0.000-0.056) ng/mL C-Reactive Protein (0.0-0.3) mg/dL NT-Pro-B Natriuret Pep (5-125) pg/mL Urine Color Urine Appearance Urine pH (4.5-8.0) Ur Specific [place] (1.008-1.030) Urine Protein (NEGATIVE) mg/dL Urine Glucose (UA) (NEGATIVE) mg/dL Urine Ketones (NEGATIVE) mg/dL Urine Occult Blood (NEGATIVE) Urine Nitrite (NEGAITVE) Urine Bilirubin (NEGATIVE) Urine Urobilinogen (NORMAL) mg/dL Ur Leukocyte Esterase (NEGATIVE) Urine RBC (0-5) Urine WBC (0-5) Ur Epithelial Cells Amorphous Sediment Urine Bacteria Urine Mucus Petey Results Last 24 Hours: Microbiology 09/18/18 16:29 Gram Stain - Final Endotrachael Aspirate Med Orders - Current: Current Medications Acetaminophen (Tylenol) 650 mg RECTAL Q4H PRN PRN Reason: Mild pain/fever Last Admin: 09/19/18 04:57 Dose: 650 mg Albuterol (Proventil Neb Soln) 2.5 mg NEB Q2H PRN PRN Reason: Shortness Of Breath/wheezing Albuterol/Ipratropium (Duoneb 3.0-0.5 Mg/3 Ml) 3 ml NEB QIDRT [facility] Last Admin: 09/19/18 07:19 Dose: 3 ml Enoxaparin Sodium (Lovenox) 40 mg SUBCUT DAILY [facility] Last Admin: 09/19/18 08:50 Dose: 40 mg Heparin Sodium (Porcine) 5,000 (units/ Sodium Chloride) 501 mls @ 5 mls/hr IV ASDIRECTED [facility] Last Admin: 09/18/18 15:50 Dose: 5 mls/hr Levofloxacin/Dextrose 750 mg/ (Premix) 150 mls @ 100 mls/hr IV Q24H [facility] Last Admin: 09/18/18 17:05 Dose: 100 mls/hr Propofol (Diprivan 100 Ml) 100 mls @ 32.382 mls/hr IV TITRATE [facility]; Protocol Last Admin: 09/19/18 08:16 Dose: 30 mcg/kg/min, 32.382 mls/hr Sodium Chloride (Normal Saline) 1,000 mls @ 25 mls/hr IV ASDIRECTED [facility] Last Admin: 09/18/18 18:48 Dose: 25 mls/hr Piperacillin/Tazobactam/ (Dextrose 3.375 gm/ Premix) 50 mls @ 100 mls/hr IV Q6H [facility] Last Admin: 09/19/18 05:55 Dose: 100 mls/hr Vancomycin HCl 1.5 gm/ Sodium (Chloride) 250 mls @ 150 mls/hr IV Q12H [facility] Last Admin: 09/19/18 08:51 Dose: 150 mls/hr Sodium Chloride (Normal Saline) 1,000 mls @ 100 mls/hr IV ASDIRECTED [facility] Last Admin: 09/18/18 21:11 Dose: 100 mls/hr Methylprednisolone Sodium Succinate (Solu-Medrol) 62.5 mg IVPUSH Q8H [facility] Last Admin: 09/19/18 07:52 Dose: 62.5 mg Morphine Sulfate (Morphine) 4 mg IV Q2H PRN PRN Reason: SEVERE PAIN (7-10) Ondansetron HCl (Zofran Odt) 4 mg PO Q6H PRN PRN Reason: Nausea able to take PO Ondansetron HCl (Zofran) 4 mg IV Q6H PRN PRN Reason: Nausea/Vomiting Pantoprazole Sodium (Protonix Iv) 40 mg IV Q24H [facility] Last Admin: 09/18/18 17:10 Dose: 40 mg Sodium Chloride (Saline Flush) 10 ml FLUSH ASDIRECTED PRN PRN Reason: Keep Vein Open Last Admin: 09/18/18 14:07 Dose: 10 ml Discontinued Medications Albuterol (Proventil Neb Soln) 2.5 mg NEB ONETIME ONE Stop: 09/18/18 13:51 Last Admin: 09/18/18 14:08 Dose: 2.5 mg Albuterol/Ipratropium (Duoneb 3.0-0.5 Mg/3 Ml) 3 ml NEB ONETIME ONE Stop: 09/18/18 13:26 Last Admin: 09/18/18 14:09 Dose: 3 ml Furosemide (Lasix) 40 mg IVPUSH NOW ONE Stop: 09/18/18 16:46 Last Admin: 09/18/18 17:04 Dose: Not Given Sodium Chloride (Normal Saline) 250 mls @ 500 mls/hr IV ASDIRECTED [facility] Last Admin: 09/18/18 14:47 Dose: 500 mls/hr Ceftriaxone Sodium 2 gm/ (Sodium Chloride) 50 mls @ 100 mls/hr IV Q24H [facility] Sodium Chloride (Normal Saline) 1,000 mls @ 999 mls/hr IV ASDIRECTED [facility] Stop: 09/18/18 18:01 Last Admin: 09/18/18 18:42 Dose: 999 mls/hr Sodium Chloride (Normal Saline) 1,000 mls @ 999 mls/hr IV ASDIRECTED [facility] Stop: 09/18/18 18:16 Last Admin: 09/18/18 17:46 Dose: 999 mls/hr Sodium Chloride (Normal Saline) 1,000 mls @ 999 mls/hr IV ASDIRECTED [facility] Stop: 09/18/18 20:20 Vancomycin HCl 2 gm/ Sodium (Chloride) 250 mls @ 150 mls/hr IV Q12H [facility] Vancomycin HCl 2 gm/ Sodium (Chloride) 500 mls @ 250 mls/hr IV Q12H [facility] Last Admin: 09/18/18 18:57 Dose: 250 mls/hr Methylprednisolone Sodium Succinate (Solu-Medrol) 125 mg IVPUSH ONETIME ONE Stop: 09/18/18 15:07 Last Admin: 09/18/18 15:50 Dose: 125 mg Midazolam HCl (Versed 1 Mg/Ml) 4 mg IVPUSH ONETIME ONE Stop: 09/18/18 16:53 Last Admin: 09/18/18 16:59 Dose: 4 mg Midazolam HCl (Versed 1 Mg/Ml) 2 mg IVPUSH ASDIRECTED ONE Stop: 09/18/18 16:54 Last Admin: 09/18/18 17:00 Dose: 2 mg Midazolam HCl (Versed 1 Mg/Ml) Confirm Administered Dose 4 mg .ROUTE .STK-MED ONE Stop: 09/18/18 16:54 Last Admin: 09/18/18 17:02 Dose: Not Given Propofol (Diprivan 20 Ml) Confirm Administered Dose 200 mg .ROUTE .STK-MED ONE Stop: 09/18/18 15:04 Succinylcholine Chloride (Quelicin) Confirm Administered Dose 200 mg .ROUTE .STK -MED ONE Stop: 09/18/18 15:04 Vancomycin HCl (Vancomycin) Confirm Administered Dose 2 gm .ROUTE .STK-MED ONE Stop: 09/18/18 18:40 Last Admin: 09/18/18 18:55 Dose: Not Given - Exam Quality Assessment: Supplemental Oxygen, Urine Catheter, DVT Prophylaxis, Restraints General: No Acute Distress, Sedated. No: Alert HEENT: Other (protuberant tongue ) Lungs: Normal Respiratory Effort, Decreased Breath Sounds. No: Wheezing Cardiovascular: Regular Rate, Regular Rhythm GI/Abdominal Exam: Soft, No Distention, Abnormal Bowel Sounds (hypoactive ) Extremities: Pedal Edema, Increased Warmth (left knee) Skin: Warm, Dry, Ecchymosis (left knee and right elbow) Psy/Mental Status: No: Alert, Agitated - Problem List & Annotations (1) Bilateral pneumonia SNOMED Code(s): 916208240 Code(s): J18.9 - PNEUMONIA, UNSPECIFIED ORGANISM Status: Acute Current Visit: Yes Qualifiers: Pneumonia type: due to unspecified organism Lung location: lower lobe of lung Qualified Code(s): J18.1 - Lobar pneumonia, unspecified organism (2) Acute respiratory failure with hypoxia and hypercapnia SNOMED Code(s): 263414358 Code(s): J96.01 - ACUTE RESPIRATORY FAILURE WITH HYPOXIA; J96.02 - ACUTE RESPIRATORY FAILURE WITH HYPERCAPNIA Status: Acute Current Visit: Yes (3) COPD exacerbation SNOMED Code(s): 786612159 Code(s): J44.1 - CHRONIC OBSTRUCTIVE PULMONARY DISEASE W (ACUTE) EXACERBATION Status: Acute Current Visit: Yes (4) Tobacco dependence SNOMED Code(s): 60878171 Code(s): F17.200 - NICOTINE DEPENDENCE, UNSPECIFIED, UNCOMPLICATED Status: Chronic Current Visit: Yes (5) Morbid obesity SNOMED Code(s): 708072233 Code(s): E66.01 - MORBID (SEVERE) OBESITY DUE TO EXCESS CALORIES Status: Chronic Current Visit: Yes - Problem List Review Problem List Initiated/Reviewed/Updated: Yes - My Orders Last 24 Hours: My Active Orders 09/18/18 15:00 Heparin Sodium 5,000 units Sodium Chloride 0.9% [Normal Saline] 500 ml IV ASDIRECTED 09/18/18 15:08 Resuscitation Status Routine 09/18/18 15:22 Urinary Catheter Assessment [RC] ASDIRECTED Arterial Line Insertion [OM.PC] Routine Arterial Line Management [OM.PC] Routine 09/18/18 15:30 Insert Sauceda Catheter [Insert Urinary Catheter] [OM.PC] Q24H 09/18/18 16:15 Propofol [Diprivan 100 ML] 100 ml IV TITRATE 09/18/18 16:29 Patient Status [ADT] Routine Bedrest Bedside Commode [RC] ASDIRECTED Cardiac Monitoring [RC] Q6HR Dietary Supplements [RC] BIDMEALS Initiate Restraint Protocol [RC] BID Intake and Output [RC] QSHIFT Mechanical Ventilation [RT Ventilator, Adult] [RC] Q4H Notify Provider Vital Signs [RC] ASDIRECTED Oxygen Therapy [RC] PRN Pulse Oximetry [RC] CONTINUOUS RASS Sedation Scale [RC] ASDIRECTED RT Aerosol Therapy [RC] ASDIRECTED VTE/DVT Education [RC] Per Unit Routine Vital Signs [RC] Q1HR CULTURE RESPIRATORY + SMEAR [RM] Stat Acetaminophen [Tylenol] 650 mg RECTAL Q4H PRN Albuterol [Proventil Neb Soln] 2.5 mg NEB Q2H PRN Ondansetron [Zofran ODT] 4 mg PO Q6H PRN Ondansetron [Zofran] 4 mg IV Q6H PRN Sodium Chloride 0.9% [Normal Saline] 1,000 ml IV ASDIRECTED Desired Level of Sedation (RASS) [AST] Click to Edit Restraint Initiate Non-VIOL/Non-SD [OM.PC] Routine Restraint Monitoring Non-VIOL/Non-SD [OM.PC] Daily 09/18/18 16:45 Morphine 4 mg IV Q2H PRN 09/18/18 17:00 Levofloxacin/Dextrose 5%-Water [Levaquin in D5W 750 MG/150 ML] 750 mg Premix Bag 1 bag IV Q24H Pantoprazole [ProTONIX IV] 40 mg IV Q24H 09/18/18 18:00 Piperacillin/Tazobactam/Dext [Zosyn in Dextrose Iso-Osmotic 3.375 GM] 3.375 gm Premix Bag 1 bag IV Q6H 09/18/18 21:00 Albuterol/Ipratropium [DuoNeb 3.0-0.5 MG/3 ML] 3 ml NEB QIDRT Sodium Chloride 0.9% [Normal Saline] 1,000 ml IV ASDIRECTED 09/18/18 21:22 Communication Order [RC] DAILY 09/18/18 23:30 methylPREDNISolone Sod Succ [Solu-MEDROL] 62.5 mg IVPUSH Q8H 09/18/18 Dinner Nothing per Oral Now Diet [DIET] 09/19/18 09:00 Enoxaparin [Lovenox] 40 mg SUBCUT DAILY Vancomycin 1.5 gm Sodium Chloride 0.9% [Normal Saline] 250 ml IV Q12H 09/19/18 09:05 Central Line PICC Insertion [Central Venous Line Insertion] [OM.PC] Routine 09/19/18 09:15 Sodium Chloride 0.9% [Normal Saline] 500 ml IV ASDIRECTED 09/19/18 16:29 Restraint Monitoring Non-VIOL/Non-SD [OM.PC] Daily 09/19/18 17:00 BLOOD GAS ARTERIAL [BG] Timed 09/20/18 05:00 BASIC METABOLIC PANEL,BMP [CHEM] Timed BLOOD GAS ARTERIAL [BG] Timed CBC W/O DIFF,HEMOGRAM [HEME] Timed (1) MAGNESIUM [CHEM] Timed 09/20/18 05:11 Chest 1V Frontal [CR] AM 09/21/18 05:11 Chest 1V Frontal [CR] AM - Plan Plan:: ASSESSMENT AND PLAN - Bilateral pneumonia with sepsis - complicated by acute respiratory failure with hypoxia and hypercapnia. We had to increase the PEEP overnight and FiO2 had been decreased slightly but is now back up to 60%. Peak inspiratory pressures are in the mid to upper 20s. Not a lot of sputum/secretions from the lungs with suctioning. Respiratory status still fairly tenuous. Cultures are pending. -Antibiotic coverage with levofloxacin and Pip/Tazo -IV steroids -Scheduled and as needed nebulizers -Mechanical ventilation -Follow-up sputum culture -Repeat ABGs twice daily -chest x-ray in the morning COPD with acute exacerbation - History of tobacco dependence and patient is chronically on inhalers and nebulizers for management. Suspect pneumonia as the trigger as discussed above. -Management as above Tobacco dependence - Patient will need strong cessation recommendations once he is extubated. Morbid obesity - BMI greater than 50. Essential hypertension - normally on medications to lower blood pressure but blood pressure is significantly low at this time. He is receiving IV fluid boluses. Antihypertensive medications will be held. Maintenance issues - - DVT prophylaxis - enoxaparin - GI prophylaxis - PPI - Nutrition - Nothing by mouth - Sauceda catheter - placed in the emergency room for strict intake and output monitoring CODE STATUS - Full code Admission justification - This patient will be admitted for inpatient services and is medically appropriate meeting medical necessity for inpatient admission as outlined in my documentation. I reasonably expect the patient will require inpatient services that span a period time over 2 midnights. I reasonably expect this patient to be discharged or transferred within 96 hours after admission to the [facility]. Disposition - I would anticipate discharge home if he survives the hospital stay Family was updated this afternoon (2 brothers) Primary care physician - Dr Jocy Roman M.D.
[2018-09-19] MEDS ORDERED: Sodium Chloride 0.9% 500 ML IV SCH (09:15)
[2018-09-19] MEDS: Sodium Chloride 0.9% 1,000 ML IV SCH ×2 (10:45→14:34)
[2018-09-19] MEDS: Midazolam 1 MG/ML 2 ML SDV IVPUSH ONE (14:30)
--- NOTE | 2018-09-19 14:33 | CR ---
CHEST: Portable CLINICAL HISTORY:PICC line placement COMPARISON:Earlier same day FINDINGS: Endotracheal tube is in the mid trachea. There are placed a PICC line from the right upper extremity into the superior vena cava just above the atrial junction. There is blunting of the left costophrenic angle.. This may represent some pleural fluid or thickening. There is some left lower lobe density which may be atelectasis or infiltrate. Impression: ET tube and PICC line are in good is addition Left pleural effusion versus pleural thickening Left lower lobe density may represent atelectasis or infiltrate. Follow-up recommended until clear
[2018-09-19] MEDS: Pantoprazole 40 MG Vial IV SCH (16:12)
[2018-09-19] MEDS: Levofloxacin/Dextrose 5%-Water 750 MG in Premix Bag 1 BAG IV SCH (16:13)
[2018-09-19] MEDS: Midazolam 1 MG/ML 2 ML SDV IVPUSH PRN ×2 (17:36→22:48)
[2018-09-20] MEDS: Midazolam 1 MG/ML 2 ML SDV IVPUSH PRN ×3 (02:13→23:41)
[2018-09-20] MEDS: Sodium Chloride 0.9% 1,000 ML IV SCH ×2 (02:52→20:23)
[2018-09-20] MEDS: Piperacillin/Tazobactam/Dext 3.375 GM in Premix Bag 1 BAG IV SCH ×4 (05:23→23:33)
[2018-09-20] MEDS: Albuterol/Ipratropium 3.0-0.5 MG/3 ML Neb Soln NEB SCH ×4 (07:09→20:28)
[2018-09-20] MEDS: methylPREDNISolone Sodium Succinate 125 MG/2 ML SDV IVPUSH SCH ×3 (07:39→23:27)
[2018-09-20] MEDS: Morphine 4 MG/ML Syringe IV PRN ×2 (07:42→17:57)
[2018-09-20] MEDS: Enoxaparin 40 MG/0.4 ML Syringe SUBCUT SCH (09:27)
--- NOTE | 2018-09-20 09:36 | PCM.PN ---
- General Info Date of Service: 09/20/18 Subjective Update: Overnight the patient did have an increased need with ventilatory support. His PEEP was increased to 10 and FiO2 did get increased up to 70. He is more alert and interactive today. Initially he was telling me he wanted me to pull the endotracheal tube immediately but after telling him that he would likely not survive if this was the case he was agreeable to leave it in a little longer. He has not had any fevers. Cultures are pending at this time. Tolerating current antibiotics. Blood pressures seem to have stabilized and her slowly increasing. Functional Status: Reports: Other (intubated and sedated) - Review of Systems General: Denies: Fever - Patient Data Vitals - Most Recent: Last Vital Signs Temp 37.1 C 09/20/18 08:00 Pulse 88 09/20/18 09:00 Resp 18 09/20/18 09:00 BP 104/56 L 09/20/18 09:00 Pulse Ox 91 L 09/20/18 09:00 Weight - Most Recent: 179.9 kg I&O - Last 24 Hours: Intake & Output 09/19/18 09/20/18 09/20/18 22:59 06:59 14:59 Intake Total 2682 1435 Output Total 750 900 Balance 1932 535 Lab Results Last 24 Hours: Laboratory Results - last 24 hr 09/19/18 09/20/18 09/20/18 Range/Units 17:00 05:00 06:12 WBC 12.9 H (4.5-11.0) K/uL RBC 3.73 L (4.30-5.90) M/uL Hgb 10.2 L (12.0-15.0) g/dL Hct 31.3 L (40.0-54.0) % MCV 84 (80-98) fL MCH 27 (27-31) pg MCHC 33 (32-36) % Plt Count 353 (150-400) K/uL Puncture Site A-line Rt radial ABG pH 7.329 L 7.397 (7.350-7.450) ABG pCO2 46.2 H 40.9 (35.0-42.0) mmHg ABG pO2 89.3 139.0 H (75.0-100.0) mmHg ABG HCO3 23.6 24.6 (22.0-26.0) mmol/L ABG Total CO2 22.2 L 22.8 L (23.0-27.0) mmol/L ABG O2 Saturation 96.0 98.7 H (95.0-98.0) % ABG O2 Content 13.7 L 14.2 L (15.0-23.0) %vol ABG Base Excess -1.8 0.3 mm/L ABG Hemoglobin 10.2 L 10.3 L (13.5-18.0) g/dL ABG Oxyhemoglobin 94.8 96.7 % ABG Carboxyhemoglobin 0.3 1.0 (0.0-1.6) % ABG Methemoglobin 1.0 1.0 % Ruddy Test A-line Passed O2 Delivery Device Ventilator Ventilator Oxygen Flow Rate L Sodium (140-148) mmol/L Potassium (3.6-5.2) mmol/L Chloride (100-108) mmol/L Carbon Dioxide (21-32) mmol/L Anion Gap (5.0-14.0) mmol/L BUN (7-18) mg/dL Creatinine (0.8-1.3) mg/dL Est Cr Clr Drug Dosing mL/min Estimated GFR (MDRD) (>60) Glucose (74-106) mg/dL Calcium (8.5-10.1) mg/dL Magnesium (1.8-2.4) mg/dL Vancomycin Trough (10.0-20.0) ug/mL 09/20/18 09/20/18 Range/Units 06:12 08:30 WBC (4.5-11.0) K/uL RBC (4.30-5.90) M/uL Hgb (12.0-15.0) g/dL Hct (40.0-54.0) % MCV (80-98) fL MCH (27-31) pg MCHC (32-36) % Plt Count (150-400) K/uL Puncture Site ABG pH (7.350-7.450) ABG pCO2 (35.0-42.0) mmHg ABG pO2 (75.0-100.0) mmHg ABG HCO3 (22.0-26.0) mmol/L ABG Total CO2 (23.0-27.0) mmol/L ABG O2 Saturation (95.0-98.0) % ABG O2 Content (15.0-23.0) %vol ABG Base Excess mm/L ABG Hemoglobin (13.5-18.0) g/dL ABG Oxyhemoglobin % ABG Carboxyhemoglobin (0.0-1.6) % ABG Methemoglobin % Ruddy Test O2 Delivery Device Oxygen Flow Rate L Sodium 136 L (140-148) mmol/L Potassium 4.2 (3.6-5.2) mmol/L Chloride 101 (100-108) mmol/L Carbon Dioxide 26 (21-32) mmol/L Anion Gap 13.2 (5.0-14.0) mmol/L BUN 25 H (7-18) mg/dL Creatinine 1.3 (0.8-1.3) mg/dL Est Cr Clr Drug Dosing 65.59 mL/min Estimated GFR (MDRD) 56 L (>60) Glucose 140 H (74-106) mg/dL Calcium 8.4 L (8.5-10.1) mg/dL Magnesium 1.9 (1.8-2.4) mg/dL Vancomycin Trough 14.6 (10.0-20.0) ug/mL Petey Results Last 24 Hours: Microbiology 09/18/18 16:29 Gram Stain - Final Endotrachael Aspirate Respiratory Culture - Preliminary NORMAL RESPIRATORY [facility] 1 DAY Med Orders - Current: Current Medications Acetaminophen (Tylenol) 650 mg RECTAL Q4H PRN PRN Reason: Mild pain/fever Last Admin: 09/19/18 04:57 Dose: 650 mg Albuterol (Proventil Neb Soln) 2.5 mg NEB Q2H PRN PRN Reason: Shortness Of Breath/wheezing Last Admin: 09/19/18 23:53 Dose: 2.5 mg Albuterol/Ipratropium (Duoneb 3.0-0.5 Mg/3 Ml) 3 ml NEB QIDRT [facility] Last Admin: 09/20/18 07:09 Dose: 3 ml Enoxaparin Sodium (Lovenox) 40 mg SUBCUT DAILY [facility] Last Admin: 09/20/18 09:27 Dose: 40 mg Heparin Sodium (Porcine) 5,000 (units/ Sodium Chloride) 501 mls @ 5 mls/hr IV ASDIRECTED [facility] Last Admin: 09/18/18 15:50 Dose: 5 mls/hr Levofloxacin/Dextrose 750 mg/ (Premix) 150 mls @ 100 mls/hr IV Q24H [facility] Last Admin: 09/19/18 16:13 Dose: 100 mls/hr Propofol (Diprivan 100 Ml) 100 mls @ 32.382 mls/hr IV TITRATE [facility]; Protocol Last Admin: 09/20/18 08:29 Dose: 30 mcg/kg/min, 32.382 mls/hr Sodium Chloride (Normal Saline) 1,000 mls @ 25 mls/hr IV ASDIRECTED [facility] Last Admin: 09/19/18 14:34 Dose: 25 mls/hr Piperacillin/Tazobactam/ (Dextrose 3.375 gm/ Premix) 50 mls @ 100 mls/hr IV Q6H [facility] Last Admin: 09/20/18 05:23 Dose: 100 mls/hr Vancomycin HCl 1.5 gm/ Sodium (Chloride) 250 mls @ 150 mls/hr IV Q12H [facility] Last Admin: 09/19/18 20:35 Dose: 150 mls/hr Sodium Chloride (Normal Saline) 1,000 mls @ 100 mls/hr IV ASDIRECTED [facility] Last Admin: 09/20/18 02:52 Dose: 100 mls/hr Methylprednisolone Sodium Succinate (Solu-Medrol) 62.5 mg IVPUSH Q8H [facility] Last Admin: 09/20/18 07:39 Dose: 62.5 mg Midazolam HCl (Versed 1 Mg/Ml) 2 mg IVPUSH Q1H PRN PRN Reason: Agitation Last Admin: 09/20/18 05:21 Dose: 2 mg Morphine Sulfate (Morphine) 4 mg IV Q2H PRN PRN Reason: SEVERE PAIN (7-10) Last Admin: 09/20/18 07:42 Dose: 4 mg Ondansetron HCl (Zofran Odt) 4 mg PO Q6H PRN PRN Reason: Nausea able to take PO Ondansetron HCl (Zofran) 4 mg IV Q6H PRN PRN Reason: Nausea/Vomiting Pantoprazole Sodium (Protonix Iv) 40 mg IV Q24H [facility] Last Admin: 09/19/18 16:12 Dose: 40 mg Sodium Chloride (Saline Flush) 10 ml FLUSH ASDIRECTED PRN PRN Reason: Keep Vein Open Last Admin: 09/18/18 14:07 Dose: 10 ml Discontinued Medications Albuterol (Proventil Neb Soln) 2.5 mg NEB ONETIME ONE Stop: 09/18/18 13:51 Last Admin: 09/18/18 14:08 Dose: 2.5 mg Albuterol/Ipratropium (Duoneb 3.0-0.5 Mg/3 Ml) 3 ml NEB ONETIME ONE Stop: 09/18/18 13:26 Last Admin: 09/18/18 14:09 Dose: 3 ml Furosemide (Lasix) 40 mg IVPUSH NOW ONE Stop: 09/18/18 16:46 Last Admin: 09/18/18 17:04 Dose: Not Given Sodium Chloride (Normal Saline) 250 mls @ 500 mls/hr IV ASDIRECTED [facility] Last Admin: 09/18/18 14:47 Dose: 500 mls/hr Ceftriaxone Sodium 2 gm/ (Sodium Chloride) 50 mls @ 100 mls/hr IV Q24H [facility] Sodium Chloride (Normal Saline) 1,000 mls @ 999 mls/hr IV ASDIRECTED [facility] Stop: 09/18/18 18:01 Last Admin: 09/18/18 18:42 Dose: 999 mls/hr Sodium Chloride (Normal Saline) 1,000 mls @ 999 mls/hr IV ASDIRECTED [facility] Stop: 09/18/18 18:16 Last Admin: 09/18/18 17:46 Dose: 999 mls/hr Sodium Chloride (Normal Saline) 1,000 mls @ 999 mls/hr IV ASDIRECTED [facility] Stop: 09/18/18 20:20 Vancomycin HCl 2 gm/ Sodium (Chloride) 250 mls @ 150 mls/hr IV Q12H [facility] Vancomycin HCl 2 gm/ Sodium (Chloride) 500 mls @ 250 mls/hr IV Q12H [facility] Last Admin: 09/18/18 18:57 Dose: 250 mls/hr Sodium Chloride (Normal Saline) 500 mls @ 500 mls/hr IV ASDIRECTED [facility] Stop: 09/19/18 10:16 Methylprednisolone Sodium Succinate (Solu-Medrol) 125 mg IVPUSH ONETIME ONE Stop: 09/18/18 15:07 Last Admin: 09/18/18 15:50 Dose: 125 mg Midazolam HCl (Versed 1 Mg/Ml) 4 mg IVPUSH ONETIME ONE Stop: 09/18/18 16:53 Last Admin: 09/18/18 16:59 Dose: 4 mg Midazolam HCl (Versed 1 Mg/Ml) 2 mg IVPUSH ASDIRECTED ONE Stop: 09/18/18 16:54 Last Admin: 09/19/18 14:30 Dose: Not Given Midazolam HCl (Versed 1 Mg/Ml) Confirm Administered Dose 4 mg .ROUTE .STK-MED ONE Stop: 09/18/18 16:54 Last Admin: 09/18/18 17:02 Dose: Not Given Propofol (Diprivan 20 Ml) Confirm Administered Dose 200 mg .ROUTE .STK-MED ONE Stop: 09/18/18 15:04 Succinylcholine Chloride (Quelicin) Confirm Administered Dose 200 mg .ROUTE .STK -MED ONE Stop: 09/18/18 15:04 Vancomycin HCl (Vancomycin) Confirm Administered Dose 2 gm .ROUTE .STK-MED ONE Stop: 09/18/18 18:40 Last Admin: 09/18/18 18:55 Dose: Not Given - Exam Quality Assessment: Supplemental Oxygen, Central Line/PICC, Urine Catheter, DVT Prophylaxis, Restraints General: Alert, Cooperative, No Acute Distress, Sedated (mildly ). No: Oriented HEENT: Pupils Equal Lungs: Normal Respiratory Effort, Crackles (both bases R>L). No: Wheezing Cardiovascular: Regular Rate, Regular Rhythm GI/Abdominal Exam: Normal Bowel Sounds, Soft, Non-Tender, No Distention, Other ( obese) Extremities: Pedal Edema, Increased Warmth (left knee) Skin: Warm, Dry, Ecchymosis (left knee and right elbow) Psy/Mental Status: Alert. No: Agitated - Problem List & Annotations (1) Bilateral pneumonia SNOMED Code(s): 115299733 Code(s): J18.9 - PNEUMONIA, UNSPECIFIED ORGANISM Status: Acute Current Visit: Yes Qualifiers: Pneumonia type: due to unspecified organism Lung location: lower lobe of lung Qualified Code(s): J18.1 - Lobar pneumonia, unspecified organism (2) Acute respiratory failure with hypoxia and hypercapnia SNOMED Code(s): 807256169 Code(s): J96.01 - ACUTE RESPIRATORY FAILURE WITH HYPOXIA; J96.02 - ACUTE RESPIRATORY FAILURE WITH HYPERCAPNIA Status: Acute Current Visit: Yes (3) COPD exacerbation SNOMED Code(s): 392285852 Code(s): J44.1 - CHRONIC OBSTRUCTIVE PULMONARY DISEASE W (ACUTE) EXACERBATION Status: Acute Current Visit: Yes (4) Tobacco dependence SNOMED Code(s): 65206678 Code(s): F17.200 - NICOTINE DEPENDENCE, UNSPECIFIED, UNCOMPLICATED Status: Chronic Current Visit: Yes (5) Morbid obesity SNOMED Code(s): 400893129 Code(s): E66.01 - MORBID (SEVERE) OBESITY DUE TO EXCESS CALORIES Status: Chronic Current Visit: Yes - Problem List Review Problem List Initiated/Reviewed/Updated: Yes - My Orders Last 24 Hours: My Active Orders 09/19/18 09:00 Enoxaparin [Lovenox] 40 mg SUBCUT DAILY Vancomycin 1.5 gm Sodium Chloride 0.9% [Normal Saline] 250 ml IV Q12H 09/19/18 09:05 Central Line PICC Insertion [Central Venous Line Insertion] [OM.PC] Routine 09/19/18 12:39 Midazolam [Versed 1 MG/ML] 2 mg IVPUSH Q1H PRN 09/20/18 05:11 Chest 1V Frontal [CR] AM 09/20/18 16:29 Restraint Monitoring Non-VIOL/Non-SD [OM.PC] Daily 09/21/18 05:00 BASIC METABOLIC PANEL,BMP [CHEM] Timed BLOOD GAS ARTERIAL [BG] Timed CBC W/O DIFF,HEMOGRAM [HEME] Timed (1) 09/21/18 05:11 Chest 1V Frontal [CR] AM 09/21/18 16:29 Restraint Monitoring Non-VIOL/Non-SD [OM.PC] Daily - Plan Plan:: ASSESSMENT AND PLAN - Bilateral pneumonia with sepsis - complicated by acute respiratory failure with hypoxia and hypercapnia. He required increased ventilatory support again overnight. Seems to be fairly stable this morning but has increased FiO2 requirement. Still on a PEEP of 10. Moving much better air today with near resolution of the wheezing. More alert and interactive. Still a fair amount of upper respiratory secretions. Sputum culture still pending. -Antibiotic coverage with levofloxacin and Pip/Tazo -IV steroids -Scheduled and as needed nebulizers -Mechanical ventilation -Follow-up sputum culture -ABG in the morning -Chest x-ray in the morning COPD with acute exacerbation - History of tobacco dependence and patient is chronically on inhalers and nebulizers for management. Suspect pneumonia as the trigger as discussed above. -Management as above Tobacco dependence - Patient will need strong cessation recommendations once he is extubated. -Nicotine patch Morbid obesity - BMI greater than 50. Essential hypertension - normally on medications to lower blood pressure but blood pressure is significantly low at this time. Antihypertensive medications will be held. Maintenance issues - - DVT prophylaxis - enoxaparin - GI prophylaxis - PPI - Nutrition - Nothing by mouth - Sauceda catheter - placed in the emergency room for strict intake and output monitoring Disposition - I would anticipate discharge home if he survives the hospital stay Family was updated this afternoon (brother, son and niece) Primary care physician - Dr Jocy Roman M.D.
[2018-09-20] MEDS: Dimethicone 20%/Zinc Oxide 25% 56 GM Spray Bottle TOP PRN (15:38)
[2018-09-20] MEDS: Pantoprazole 40 MG Vial IV SCH (16:29)
[2018-09-20] MEDS: Levofloxacin/Dextrose 5%-Water 750 MG in Premix Bag 1 BAG IV SCH (16:29)
[2018-09-20] MEDS ORDERED: Nicotine 21 MG/24 Hr Patch TRDERM ONE (16:53)
[2018-09-21] MEDS: Dimethicone 20%/Zinc Oxide 25% 56 GM Spray Bottle TOP PRN (00:11)
[2018-09-21] MEDS: Morphine 4 MG/ML Syringe IV PRN ×5 (02:18→23:04)
[2018-09-21] MEDS: Piperacillin/Tazobactam/Dext 3.375 GM in Premix Bag 1 BAG IV SCH ×3 (05:24→18:07)
[2018-09-21] MEDS: Albuterol/Ipratropium 3.0-0.5 MG/3 ML Neb Soln NEB SCH ×4 (07:11→20:23)
[2018-09-21] MEDS: methylPREDNISolone Sodium Succinate 125 MG/2 ML SDV IVPUSH SCH (08:19)
[2018-09-21] MEDS: Enoxaparin 40 MG/0.4 ML Syringe SUBCUT SCH (08:26)
[2018-09-21] MEDS: Nicotine 21 MG/24 Hr Patch TRDERM SCH (08:26)
--- NOTE | 2018-09-21 09:44 | PCM.PN ---
- General Info Date of Service: 09/21/18 Subjective Update: There were no acute events overnight. Respiratory status is stable to slightly improved. Currently on 65% FiO2. Blood pressures have been improving and are currently in the normal range. He has had good urine output. He remains lightly sedated and is alert and interactive when someone's in the room. He does not report any chest pain or abdominal pain this morning. Cultures remain negative. He has not had any fevers. Functional Status: Reports: Pain Controlled, Other (intubated and sedated) - Review of Systems General: Denies: Fever - Patient Data Vitals - Most Recent: Last Vital Signs Temp 36.6 C 09/21/18 08:00 Pulse 74 09/21/18 08:00 Resp 18 09/21/18 08:00 BP 123/60 09/21/18 08:00 Pulse Ox 95 09/21/18 08:00 Weight - Most Recent: 179.9 kg I&O - Last 24 Hours: Intake & Output 09/20/18 09/21/18 09/21/18 22:59 06:59 14:59 Intake Total 1666 1838 Output Total 645 530 250 Balance 1021 1308 -250 Lab Results Last 24 Hours: Laboratory Results - last 24 hr 09/21/18 09/21/18 09/21/18 Range/Units 05:30 05:30 05:30 WBC 11.1 H (4.5-11.0) K/uL RBC 3.83 L (4.30-5.90) M/uL Hgb 10.5 L (12.0-15.0) g/dL Hct 31.9 L (40.0-54.0) % MCV 83 (80-98) fL MCH 27 (27-31) pg MCHC 33 (32-36) % Plt Count 309 (150-400) K/uL Puncture Site L radial ABG pH 7.354 (7.350-7.450) ABG pCO2 48.0 H (35.0-42.0) mmHg ABG pO2 75.6 (75.0-100.0) mmHg ABG HCO3 26.0 (22.0-26.0) mmol/L ABG Total CO2 24.3 (23.0-27.0) mmol/L ABG O2 Saturation 94.3 L (95.0-98.0) % ABG O2 Content 13.8 L (15.0-23.0) %vol ABG Base Excess 0.7 mm/L ABG Hemoglobin 10.5 L (13.5-18.0) g/dL ABG Oxyhemoglobin 93.1 % ABG Carboxyhemoglobin 0.4 (0.0-1.6) % ABG Methemoglobin 0.9 % Ruddy Test Ok O2 Delivery Device Ventilator Oxygen Flow Rate L Sodium 136 L (140-148) mmol/L Potassium 4.4 (3.6-5.2) mmol/L Chloride 102 (100-108) mmol/L Carbon Dioxide 26 (21-32) mmol/L Anion Gap 12.4 (5.0-14.0) mmol/L BUN 26 H (7-18) mg/dL Creatinine 1.2 (0.8-1.3) mg/dL Est Cr Clr Drug Dosing 71.05 mL/min Estimated GFR (MDRD) > 60 (>60) Glucose 142 H (74-106) mg/dL Calcium 8.7 (8.5-10.1) mg/dL Petey Results Last 24 Hours: Microbiology 09/18/18 16:29 Gram Stain - Final Endotrachael Aspirate Respiratory Culture - Final NORMAL RESPIRATORY [facility] 2 DAYS Med Orders - Current: Current Medications Acetaminophen (Tylenol) 650 mg RECTAL Q4H PRN PRN Reason: Mild pain/fever Last Admin: 09/19/18 04:57 Dose: 650 mg Albuterol (Proventil Neb Soln) 2.5 mg NEB Q2H PRN PRN Reason: Shortness Of Breath/wheezing Last Admin: 09/19/18 23:53 Dose: 2.5 mg Albuterol/Ipratropium (Duoneb 3.0-0.5 Mg/3 Ml) 3 ml NEB QIDRT [facility] Last Admin: 09/21/18 07:11 Dose: 3 ml Dimethicone/Zinc Oxide (Rash Relief-Zinc Oxide [place]) 0 gm TOP ASDIRECTED PRN PRN Reason: rash Last Admin: 09/21/18 00:11 Dose: 6 spray Enoxaparin Sodium (Lovenox) 40 mg SUBCUT DAILY [facility] Last Admin: 09/21/18 08:26 Dose: 40 mg Heparin Sodium (Porcine) 5,000 (units/ Sodium Chloride) 501 mls @ 5 mls/hr IV ASDIRECTED [facility] Last Admin: 09/18/18 15:50 Dose: 5 mls/hr Levofloxacin/Dextrose 750 mg/ (Premix) 150 mls @ 100 mls/hr IV Q24H [facility] Last Admin: 09/20/18 16:29 Dose: 100 mls/hr Propofol (Diprivan 100 Ml) 100 mls @ 32.382 mls/hr IV TITRATE [facility]; Protocol Last Admin: 09/21/18 08:35 Dose: 30 mcg/kg/min, 32.382 mls/hr Piperacillin/Tazobactam/ (Dextrose 3.375 gm/ Premix) 50 mls @ 100 mls/hr IV Q6H [facility] Last Admin: 09/21/18 05:24 Dose: 100 mls/hr Vancomycin HCl 1.5 gm/ Sodium (Chloride) 250 mls @ 150 mls/hr IV Q12H [facility] Last Admin: 09/21/18 08:25 Dose: 150 mls/hr Midazolam HCl (Versed 1 Mg/Ml) 2 mg IVPUSH Q1H PRN PRN Reason: Agitation Last Admin: 09/20/18 23:41 Dose: 2 mg Morphine Sulfate (Morphine) 4 mg IV Q2H PRN PRN Reason: SEVERE PAIN (7-10) Last Admin: 09/21/18 02:18 Dose: 4 mg Nicotine (Habitrol) 21 mg TRDERM DAILY [facility] Last Admin: 09/21/18 08:26 Dose: 21 mg Ondansetron HCl (Zofran Odt) 4 mg PO Q6H PRN PRN Reason: Nausea able to take PO Ondansetron HCl (Zofran) 4 mg IV Q6H PRN PRN Reason: Nausea/Vomiting Pantoprazole Sodium (Protonix Iv) 40 mg IV Q24H [facility] Last Admin: 09/20/18 16:29 Dose: 40 mg Sodium Chloride (Saline Flush) 10 ml FLUSH ASDIRECTED PRN PRN Reason: Keep Vein Open Last Admin: 09/18/18 14:07 Dose: 10 ml Discontinued Medications Albuterol (Proventil Neb Soln) 2.5 mg NEB ONETIME ONE Stop: 09/18/18 13:51 Last Admin: 09/18/18 14:08 Dose: 2.5 mg Albuterol/Ipratropium (Duoneb 3.0-0.5 Mg/3 Ml) 3 ml NEB ONETIME ONE Stop: 09/18/18 13:26 Last Admin: 09/18/18 14:09 Dose: 3 ml Furosemide (Lasix) 40 mg IVPUSH NOW ONE Stop: 09/18/18 16:46 Last Admin: 09/18/18 17:04 Dose: Not Given Sodium Chloride (Normal Saline) 250 mls @ 500 mls/hr IV ASDIRECTED [facility] Last Admin: 09/18/18 14:47 Dose: 500 mls/hr Ceftriaxone Sodium 2 gm/ (Sodium Chloride) 50 mls @ 100 mls/hr IV Q24H [facility] Sodium Chloride (Normal Saline) 1,000 mls @ 25 mls/hr IV ASDIRECTED [facility] Last Admin: 09/19/18 14:34 Dose: 25 mls/hr Sodium Chloride (Normal Saline) 1,000 mls @ 999 mls/hr IV ASDIRECTED [facility] Stop: 09/18/18 18:01 Last Admin: 09/18/18 18:42 Dose: 999 mls/hr Sodium Chloride (Normal Saline) 1,000 mls @ 999 mls/hr IV ASDIRECTED [facility] Stop: 09/18/18 18:16 Last Admin: 09/18/18 17:46 Dose: 999 mls/hr Sodium Chloride (Normal Saline) 1,000 mls @ 999 mls/hr IV ASDIRECTED [facility] Stop: 09/18/18 20:20 Vancomycin HCl 2 gm/ Sodium (Chloride) 250 mls @ 150 mls/hr IV Q12H [facility] Vancomycin HCl 2 gm/ Sodium (Chloride) 500 mls @ 250 mls/hr IV Q12H [facility] Last Admin: 09/18/18 18:57 Dose: 250 mls/hr Sodium Chloride (Normal Saline) 1,000 mls @ 100 mls/hr IV ASDIRECTED [facility] Last Admin: 09/20/18 20:23 Dose: 100 mls/hr Sodium Chloride (Normal Saline) 500 mls @ 500 mls/hr IV ASDIRECTED [facility] Stop: 09/19/18 10:16 Methylprednisolone Sodium Succinate (Solu-Medrol) 125 mg IVPUSH ONETIME ONE Stop: 09/18/18 15:07 Last Admin: 09/18/18 15:50 Dose: 125 mg Methylprednisolone Sodium Succinate (Solu-Medrol) 62.5 mg IVPUSH Q8H [facility] Last Admin: 09/21/18 08:19 Dose: 62.5 mg Midazolam HCl (Versed 1 Mg/Ml) 4 mg IVPUSH ONETIME ONE Stop: 09/18/18 16:53 Last Admin: 09/18/18 16:59 Dose: 4 mg Midazolam HCl (Versed 1 Mg/Ml) 2 mg IVPUSH ASDIRECTED ONE Stop: 09/18/18 16:54 Last Admin: 09/19/18 14:30 Dose: Not Given Midazolam HCl (Versed 1 Mg/Ml) Confirm Administered Dose 4 mg .ROUTE .STK-MED ONE Stop: 09/18/18 16:54 Last Admin: 09/18/18 17:02 Dose: Not Given Nicotine (Habitrol) 21 mg TRDERM ONETIME ONE Stop: 09/20/18 16:54 Last Admin: 09/20/18 17:41 Dose: 21 mg Propofol (Diprivan 20 Ml) Confirm Administered Dose 200 mg .ROUTE .STK-MED ONE Stop: 09/18/18 15:04 Succinylcholine Chloride (Quelicin) Confirm Administered Dose 200 mg .ROUTE .STK -MED ONE Stop: 09/18/18 15:04 Vancomycin HCl (Vancomycin) Confirm Administered Dose 2 gm .ROUTE .STK-MED ONE Stop: 09/18/18 18:40 Last Admin: 09/18/18 18:55 Dose: Not Given - Exam Quality Assessment: Supplemental Oxygen, Central Line/PICC, Urine Catheter, DVT Prophylaxis, Restraints General: Alert, Cooperative, Mild Distress. No: Oriented HEENT: Pupils Equal Lungs: Clear to Auscultation, Normal Respiratory Effort, Other (breath sounds distant ). No: Wheezing Cardiovascular: Regular Rate, Regular Rhythm GI/Abdominal Exam: Soft, No Distention, Abnormal Bowel Sounds (hypoactive) Extremities: Pedal Edema, Increased Warmth (left knee ) Skin: Warm, Dry, Ecchymosis (left knee ) Psy/Mental Status: Alert, Anxious - Problem List & Annotations (1) Bilateral pneumonia SNOMED Code(s): 157983170 Code(s): J18.9 - PNEUMONIA, UNSPECIFIED ORGANISM Status: Acute Current Visit: Yes Qualifiers: Pneumonia type: due to unspecified organism Lung location: lower lobe of lung Qualified Code(s): J18.1 - Lobar pneumonia, unspecified organism (2) Acute respiratory failure with hypoxia and hypercapnia SNOMED Code(s): 695563425 Code(s): J96.01 - ACUTE RESPIRATORY FAILURE WITH HYPOXIA; J96.02 - ACUTE RESPIRATORY FAILURE WITH HYPERCAPNIA Status: Acute Current Visit: Yes (3) COPD exacerbation SNOMED Code(s): 163579678 Code(s): J44.1 - CHRONIC OBSTRUCTIVE PULMONARY DISEASE W (ACUTE) EXACERBATION Status: Acute Current Visit: Yes (4) Tobacco dependence SNOMED Code(s): 88426710 Code(s): F17.200 - NICOTINE DEPENDENCE, UNSPECIFIED, UNCOMPLICATED Status: Chronic Current Visit: Yes (5) Morbid obesity SNOMED Code(s): 155946469 Code(s): E66.01 - MORBID (SEVERE) OBESITY DUE TO EXCESS CALORIES Status: Chronic Current Visit: Yes - Problem List Review Problem List Initiated/Reviewed/Updated: Yes - My Orders Last 24 Hours: My Active Orders 09/20/18 11:33 Dimethicone/Zinc Oxide [Rash Relief-Zinc Oxide [place]] 0 gm TOP ASDIRECTED PRN 09/20/18 16:29 Restraint Monitoring Non-VIOL/Non-SD [OM.PC] Daily 09/21/18 05:11 Chest 1V Frontal [CR] AM 09/21/18 09:00 Nicotine [Habitrol] 21 mg TRDERM DAILY 09/21/18 09:41 Furosemide [Lasix] 40 mg IVPUSH ONETIME ONE 09/21/18 09:45 Sodium Chloride 0.9% [Normal Saline] 1,000 ml IV ASDIRECTED Sodium Chloride 0.9% [Normal Saline] 1,000 ml IV ASDIRECTED 09/21/18 16:00 methylPREDNISolone Sod Succ [Solu-MEDROL] 40 mg IVPUSH Q8H 09/21/18 16:29 Restraint Monitoring Non-VIOL/Non-SD [OM.PC] Daily 09/22/18 05:00 BASIC METABOLIC PANEL,BMP [CHEM] Timed BLOOD GAS ARTERIAL [BG] Timed CBC W/O DIFF,HEMOGRAM [HEME] Timed (1) - Plan Plan:: ASSESSMENT AND PLAN - Bilateral pneumonia with sepsis - complicated by acute respiratory failure with hypoxia and hypercapnia. Ventilator support slightly less today but still has significant compromise with increased FiO2 and PEEP of 10. He has not had any fevers. He does appear to have some edema from the initial volume resuscitation. ABG this morning did show mild CO2 retention. Chest x-ray appears stable. -Antibiotic coverage with levofloxacin and Pip/Tazo -IV steroids -Furosemide 1 this morning and reassess -Scheduled and as needed nebulizers -Mechanical ventilation -Follow-up sputum culture -ABG in the morning -Chest x-ray in the morning COPD with acute exacerbation - History of tobacco dependence and patient is chronically on inhalers and nebulizers for management. Suspect pneumonia as the trigger as discussed above. -Management as above Tobacco dependence - Patient will need strong cessation recommendations once he is extubated. -Nicotine patch Morbid obesity - BMI greater than 50. Essential hypertension - normally on medications to lower blood pressure but blood pressure is significantly low at this time. Antihypertensive medications will remain on hold. Maintenance issues - - DVT prophylaxis - enoxaparin - GI prophylaxis - PPI - Nutrition - Nothing by mouth - Sauceda catheter - placed in the emergency room for strict intake and output monitoring Disposition - I would anticipate discharge home if he survives the hospital stay Family was updated today (brother, son) Primary care physician - Dr Jocy Roman M.D.
[2018-09-21] MEDS ORDERED: Sodium Chloride 0.9% 1,000 ML IV SCH ×2 (09:45)
[2018-09-21] MEDS ORDERED: Furosemide 40 MG/4 ML VIAL IVPUSH ONE (09:55)
[2018-09-21] MEDS: methylPREDNISolone Sodium Succinate 40 MG/1 ML SDV IV SCH (15:23)
[2018-09-21] MEDS ORDERED: methylPREDNISolone Sodium Succinate 125 MG/2 ML SDV IVPUSH SCH (16:00)
[2018-09-21] MEDS: Pantoprazole 40 MG Vial IV SCH (17:13)
[2018-09-21] MEDS: Levofloxacin/Dextrose 5%-Water 750 MG in Premix Bag 1 BAG IV SCH (17:15)
[2018-09-21] MEDS ORDERED: Furosemide 20 MG/2 ML VIAL IVPUSH ONE (21:00)
[2018-09-22] MEDS: Piperacillin/Tazobactam/Dext 3.375 GM in Premix Bag 1 BAG IV SCH ×4 (00:24→18:27)
[2018-09-22] MEDS: methylPREDNISolone Sodium Succinate 40 MG/1 ML SDV IV SCH ×4 (00:25→22:17)
[2018-09-22] MEDS: Morphine 4 MG/ML Syringe IV PRN (04:42)
[2018-09-22] MEDS: Albuterol/Ipratropium 3.0-0.5 MG/3 ML Neb Soln NEB SCH ×4 (07:09→21:27)
[2018-09-22] MEDS: Enoxaparin 40 MG/0.4 ML Syringe SUBCUT SCH (08:07)
[2018-09-22] MEDS: Nicotine 21 MG/24 Hr Patch TRDERM SCH (08:07)
--- NOTE | 2018-09-22 09:51 | PCM.PN ---
- General Info Date of Service: 09/22/18 Subjective Update: Mr. Hoskins is a 62-year-old gentleman with a known history of COPD, admitted with acute on chronic hypoxic and hypercapnic respiratory failure, bilateral pneumonia, requiring intubation and mechanical ventilation. He is shown modest improvement over the past few days with decreased requirements for supplemental oxygen through the ventilator. He has been sedated and is unable to provide information concerning symptoms or review of systems. Chest x-ray today shows loss of aeration in the right lung compared to previous x-rays. Vital signs have otherwise been stable and he has remained afebrile. - Patient Data Vitals - Most Recent: Last Vital Signs Temp 97.5 F 09/22/18 07:00 Pulse 77 09/22/18 07:09 Resp 19 09/22/18 09:00 BP 124/70 09/22/18 09:00 Pulse Ox 91 L 09/22/18 09:00 Weight - Most Recent: 396 lb 9.785 oz I&O - Last 24 Hours: Intake & Output 09/21/18 09/22/18 09/22/18 22:59 06:59 14:59 Intake Total 1523 788 Output Total 1790 1450 Balance -267 -662 Lab Results Last 24 Hours: Laboratory Results - last 24 hr 09/22/18 09/22/18 09/22/18 Range/Units 05:53 05:53 05:54 WBC 11.7 H (4.5-11.0) K/uL RBC 4.03 L (4.30-5.90) M/uL Hgb 11.0 L (12.0-15.0) g/dL Hct 33.1 L (40.0-54.0) % MCV 82 (80-98) fL MCH 27 (27-31) pg MCHC 33 (32-36) % Plt Count 342 (150-400) K/uL Puncture Site L radial ABG pH 7.409 (7.350-7.450) ABG pCO2 47.4 H (35.0-42.0) mmHg ABG pO2 62.5 L (75.0-100.0) mmHg ABG HCO3 29.4 H (22.0-26.0) mmol/L ABG Total CO2 26.9 (23.0-27.0) mmol/L ABG O2 Saturation 90.1 L (95.0-98.0) % ABG O2 Content 13.8 L (15.0-23.0) %vol ABG Base Excess 4.5 mm/L ABG Hemoglobin 11.0 L (13.5-18.0) g/dL ABG Oxyhemoglobin 88.7 % ABG Carboxyhemoglobin 0.5 (0.0-1.6) % ABG Methemoglobin 1.0 % O2 Delivery Device Ventilator Oxygen Flow Rate L Sodium 136 L (140-148) mmol/L Potassium 4.1 (3.6-5.2) mmol/L Chloride 100 (100-108) mmol/L Carbon Dioxide 30 (21-32) mmol/L Anion Gap 10.1 (5.0-14.0) mmol/L BUN 30 H (7-18) mg/dL Creatinine 1.3 (0.8-1.3) mg/dL Est Cr Clr Drug Dosing 65.59 mL/min Estimated GFR (MDRD) 56 L (>60) Glucose 137 H (74-106) mg/dL Calcium 9.3 (8.5-10.1) mg/dL Petey Results Last 24 Hours: Microbiology 09/18/18 16:29 Gram Stain - Final Endotrachael Aspirate Respiratory Culture - Final NORMAL RESPIRATORY [facility]PIT[facility] 2 DAYS Med Orders - Current: Current Medications Acetaminophen (Tylenol) 650 mg RECTAL Q4H PRN PRN Reason: Mild pain/fever Last Admin: 09/19/18 04:57 Dose: 650 mg Albuterol (Proventil Neb Soln) 2.5 mg NEB Q2H PRN PRN Reason: Shortness Of Breath/wheezing Last Admin: 09/19/18 23:53 Dose: 2.5 mg Albuterol/Ipratropium (Duoneb 3.0-0.5 Mg/3 Ml) 3 ml NEB QIDRT EVGENY Last Admin: 09/22/18 07:09 Dose: 3 ml Dimethicone/Zinc Oxide (Rash Relief-Zinc Oxide [place]) 0 gm TOP ASDIRECTED PRN PRN Reason: rash Last Admin: 09/21/18 00:11 Dose: 6 spray Enoxaparin Sodium (Lovenox) 40 mg SUBCUT DAILY [facility] Last Admin: 09/22/18 08:07 Dose: 40 mg Levofloxacin/Dextrose 750 mg/ (Premix) 150 mls @ 100 mls/hr IV Q24H [facility] Last Admin: 09/21/18 17:15 Dose: 100 mls/hr Propofol (Diprivan 100 Ml) 100 mls @ 32.382 mls/hr IV TITRATE EVGENY; Protocol Last Admin: 09/22/18 09:09 Dose: 35 mcg/kg/min, 37.779 mls/hr Piperacillin/Tazobactam/ (Dextrose 3.375 gm/ Premix) 50 mls @ 100 mls/hr IV Q6H [facility] Last Admin: 09/22/18 05:51 Dose: 100 mls/hr Vancomycin HCl 1.5 gm/ Sodium (Chloride) 250 mls @ 150 mls/hr IV Q12H [facility] Last Admin: 09/22/18 08:11 Dose: 150 mls/hr Sodium Chloride (Normal Saline) 1,000 mls @ 12.5 mls/hr IV ASDIRECTED [facility] Last Admin: 09/21/18 15:48 Dose: 12.5 mls/hr Sodium Chloride (Normal Saline) 1,000 mls @ 12.5 mls/hr IV ASDIRECTED [facility] Methylprednisolone Sodium Succinate (Solu-Medrol) 40 mg IV Q8H [facility] Last Admin: 09/22/18 08:03 Dose: 40 mg Midazolam HCl (Versed 1 Mg/Ml) 2 mg IVPUSH Q1H PRN PRN Reason: Agitation Last Admin: 09/20/18 23:41 Dose: 2 mg Morphine Sulfate (Morphine) 4 mg IV Q2H PRN PRN Reason: SEVERE PAIN (7-10) Last Admin: 09/22/18 04:42 Dose: 4 mg Nicotine (Habitrol) 21 mg TRDERM DAILY [facility] Last Admin: 09/22/18 08:07 Dose: 21 mg Ondansetron HCl (Zofran Odt) 4 mg PO Q6H PRN PRN Reason: Nausea able to take PO Ondansetron HCl (Zofran) 4 mg IV Q6H PRN PRN Reason: Nausea/Vomiting Pantoprazole Sodium (Protonix Iv) 40 mg IV Q24H [facility] Last Admin: 09/21/18 17:13 Dose: 40 mg Sodium Chloride (Saline Flush) 10 ml FLUSH ASDIRECTED PRN PRN Reason: Keep Vein Open Last Admin: 09/18/18 14:07 Dose: 10 ml Discontinued Medications Albuterol (Proventil Neb Soln) 2.5 mg NEB ONETIME ONE Stop: 09/18/18 13:51 Last Admin: 09/18/18 14:08 Dose: 2.5 mg Albuterol/Ipratropium (Duoneb 3.0-0.5 Mg/3 Ml) 3 ml NEB ONETIME ONE Stop: 09/18/18 13:26 Last Admin: 09/18/18 14:09 Dose: 3 ml Furosemide (Lasix) 40 mg IVPUSH NOW ONE Stop: 09/18/18 16:46 Last Admin: 09/18/18 17:04 Dose: Not Given Furosemide (Lasix) 40 mg IVPUSH ONETIME ONE Stop: 09/21/18 09:56 Last Admin: 09/21/18 09:51 Dose: 40 mg Furosemide (Lasix) 20 mg IVPUSH ONETIME ONE Stop: 09/21/18 21:01 Last Admin: 09/21/18 20:23 Dose: 20 mg Sodium Chloride (Normal Saline) 250 mls @ 500 mls/hr IV ASDIRECTED [facility] Last Admin: 09/18/18 14:47 Dose: 500 mls/hr Heparin Sodium (Porcine) 5,000 (units/ Sodium Chloride) 501 mls @ 5 mls/hr IV ASDIRECTED [facility] Last Admin: 09/18/18 15:50 Dose: 5 mls/hr Ceftriaxone Sodium 2 gm/ (Sodium Chloride) 50 mls @ 100 mls/hr IV Q24H EVGENY Sodium Chloride (Normal Saline) 1,000 mls @ 25 mls/hr IV ASDIRECTED [facility] Last Admin: 09/19/18 14:34 Dose: 25 mls/hr Sodium Chloride (Normal Saline) 1,000 mls @ 999 mls/hr IV ASDIRECTED [facility] Stop: 09/18/18 18:01 Last Admin: 09/18/18 18:42 Dose: 999 mls/hr Sodium Chloride (Normal Saline) 1,000 mls @ 999 mls/hr IV ASDIRECTED [facility] Stop: 09/18/18 18:16 Last Admin: 09/18/18 17:46 Dose: 999 mls/hr Sodium Chloride (Normal Saline) 1,000 mls @ 999 mls/hr IV ASDIRECTED [facility] Stop: 09/18/18 20:20 Vancomycin HCl 2 gm/ Sodium (Chloride) 250 mls @ 150 mls/hr IV Q12H [facility] Vancomycin HCl 2 gm/ Sodium (Chloride) 500 mls @ 250 mls/hr IV Q12H [facility] Last Admin: 09/18/18 18:57 Dose: 250 mls/hr Sodium Chloride (Normal Saline) 1,000 mls @ 100 mls/hr IV ASDIRECTED [facility] Last Admin: 09/20/18 20:23 Dose: 100 mls/hr Sodium Chloride (Normal Saline) 500 mls @ 500 mls/hr IV ASDIRECTED [facility] Stop: 09/19/18 10:16 Methylprednisolone Sodium Succinate (Solu-Medrol) 125 mg IVPUSH ONETIME ONE Stop: 09/18/18 15:07 Last Admin: 09/18/18 15:50 Dose: 125 mg Methylprednisolone Sodium Succinate (Solu-Medrol) 62.5 mg IVPUSH Q8H [facility] Last Admin: 09/21/18 08:19 Dose: 62.5 mg Midazolam HCl (Versed 1 Mg/Ml) 4 mg IVPUSH ONETIME ONE Stop: 09/18/18 16:53 Last Admin: 09/18/18 16:59 Dose: 4 mg Midazolam HCl (Versed 1 Mg/Ml) 2 mg IVPUSH ASDIRECTED ONE Stop: 09/18/18 16:54 Last Admin: 09/19/18 14:30 Dose: Not Given Midazolam HCl (Versed 1 Mg/Ml) Confirm Administered Dose 4 mg .ROUTE .STK-MED ONE Stop: 09/18/18 16:54 Last Admin: 09/18/18 17:02 Dose: Not Given Nicotine (Habitrol) 21 mg TRDERM ONETIME ONE Stop: 09/20/18 16:54 Last Admin: 09/20/18 17:41 Dose: 21 mg Propofol (Diprivan 20 Ml) Confirm Administered Dose 200 mg .ROUTE .STK-MED ONE Stop: 09/18/18 15:04 Succinylcholine Chloride (Quelicin) Confirm Administered Dose 200 mg .ROUTE .STK -MED ONE Stop: 09/18/18 15:04 Vancomycin HCl (Vancomycin) Confirm Administered Dose 2 gm .ROUTE .STK-MED ONE Stop: 09/18/18 18:40 Last Admin: 09/18/18 18:55 Dose: Not Given - Exam Quality Assessment: Supplemental Oxygen (Ventilator), Central Line/PICC, Urine Catheter, DVT Prophylaxis General: Sedated, Lethargic Lungs: Decreased Breath Sounds. No: Rales, Rhonchi, Rub, Wheezing Cardiovascular: Regular Rate, Regular Rhythm, No Murmurs GI/Abdominal Exam: Soft, Non-Tender, No Organomegaly, No Distention Extremities: Non-Tender, Pedal Edema - Problem List Review Problem List Initiated/Reviewed/Updated: Yes - My Orders Last 24 Hours: My Active Orders 09/22/18 09:45 Chest wo Cont [CT] Stat 09/23/18 05:00 BASIC METABOLIC PANEL,BMP [CHEM] Timed BLOOD GAS ARTERIAL [BG] Timed CBC WITH AUTO DIFF [HEME] Timed MAGNESIUM [CHEM] Timed - Plan Plan:: ASSESSMENT AND PLAN - Bilateral pneumonia with sepsis - complicated by acute respiratory failure with hypoxia and hypercapnia. Continues to require FiO2 of 60% to maintain adequate saturations. Chest x-ray shows decreased aeration in the left lung compared to previous x-rays. -CT scan of the chest today -Antibiotic coverage with levofloxacin and Pip/Tazo -IV steroids -Repeat furosemide today -Scheduled and as needed nebulizers -Mechanical ventilation -Follow-up sputum culture -ABG in the morning -Chest x-ray in the morning COPD with acute exacerbation - History of tobacco dependence and patient is chronically on inhalers and nebulizers for management. Suspect pneumonia as the trigger as discussed above. -Management as above Tobacco dependence - Patient will need strong cessation recommendations once he is extubated. -Nicotine patch Morbid obesity - BMI greater than 50. Essential hypertension - normally on medications to lower blood pressure but blood pressure is significantly low at this time. Antihypertensive medications will remain on hold. Maintenance issues - - DVT prophylaxis - enoxaparin - GI prophylaxis - PPI - Nutrition - Nothing by mouth - Sauceda catheter - placed in the emergency room for strict intake and output monitoring Disposition - I would anticipate discharge home if he survives the hospital stay Family was updated today (brother, son) Primary care physician - Dr Sandra
[2018-09-22] MEDS ORDERED: Furosemide 20 MG/2 ML VIAL IVPUSH ONE (10:15)
--- NOTE | 2018-09-22 11:31 | CT ---
Chest wo Cont CLINICAL HISTORY: Hypoxia TECHNIQUE: Transverse scans were obtained from the thoracic inlet to the lung bases without contrast. Auto dosage reduction and iterative reconstruction techniques employed. COMPARISONS: Recent chest x-rays FINDINGS: Study is limited due to patient's large size and significant motion. There is still moderate left lung airspace disease. With left lung volume loss. There is improved aeration in the left upper lobe. Left lower lobe opacification is felt to represent a combination of some atelectasis as well as consolidation. There is some narrowing and the internal opacification within the left the mainstem bronchus this begins approximately 1.5 cm from the mayra there are small bilateral pleural effusions. There are atherosclerotic changes in the aorta.. Patient has a right jugular catheter. The tip is in the right atrium. Endotracheal tube is in the mid trachea IMPRESSION: Moderate volume loss in the left lung with improved aeration in the left upper lobe when compared to recent prior chest x-ray. There is persistent complete opacification of the left lower lung. There is some luminal narrowing and some filling defect in the proximal to mid left mainstem bronchus. Some of this may be mucous plugging but there does appear to be some circumferential bronchial thickening. An endobronchial lesion is not excluded. Findings should be correlated with bronchoscopy Small bilateral pleural effusions graph study is limited due to moderate motion
[2018-09-22] MEDS: Pantoprazole 40 MG Vial IV SCH (16:42)
[2018-09-22] MEDS: Levofloxacin/Dextrose 5%-Water 750 MG in Premix Bag 1 BAG IV SCH (16:44)
[2018-09-23] MEDS: Piperacillin/Tazobactam/Dext 3.375 GM in Premix Bag 1 BAG IV SCH ×4 (01:10→17:06)
[2018-09-23] MEDS ORDERED: Midazolam 1 MG/ML 5 ML SDV IVPUSH ONE (06:39)
[2018-09-23] MEDS ORDERED: Lidocaine 2% Viscous Solution 15 ML Cup ONE (06:45)
[2018-09-23] MEDS ORDERED: Lidocaine 4% Top Soln 50 ML Bottle ONE (06:45)
[2018-09-23] MEDS ORDERED: Midazolam 1 MG/ML 5 ML SDV ONE (07:22)
[2018-09-23] MEDS: Albuterol/Ipratropium 3.0-0.5 MG/3 ML Neb Soln NEB SCH ×4 (07:42→20:28)
[2018-09-23] MEDS: Nicotine 21 MG/24 Hr Patch TRDERM SCH (08:22)
[2018-09-23] MEDS: Enoxaparin 40 MG/0.4 ML Syringe SUBCUT SCH (08:24)
[2018-09-23] MEDS: methylPREDNISolone Sodium Succinate 40 MG/1 ML SDV IV SCH ×2 (10:09→21:25)
--- NOTE | 2018-09-23 10:13 | PCM.PN ---
- General Info Date of Service: 09/23/18 Subjective Update: Mr. Hoskins has remained fairly stable over the past 24 hours but continues to require relatively high level of ventilatory support, current FiO2 is at 50%. CT scan of the chest was obtained yesterday and shows dense infiltrate in the left lower lobe was some bronchus thickening in the left mainstem bronchus. Bronchoscopy was performed today by Dr. Butt cultures obtained and secretions removed. Plan is for follow-up bronchoscopy and tomorrow. He is unable to provide meaningful information concerning symptoms or review of systems because of sedation. - Patient Data Vitals - Most Recent: Last Vital Signs Temp 98 F 09/23/18 08:00 Pulse 75 09/23/18 09:50 Resp 15 09/23/18 09:50 BP 124/65 09/23/18 09:50 Pulse Ox 97 09/23/18 08:00 Weight - Most Recent: 396 lb 9.785 oz I&O - Last 24 Hours: Intake & Output 09/22/18 09/23/18 09/23/18 22:59 06:59 14:59 Intake Total 1582 895 Output Total 2100 1350 Balance -518 -455 Lab Results Last 24 Hours: Laboratory Results - last 24 hr 09/23/18 09/23/18 09/23/18 Range/Units 05:00 05:00 05:00 WBC 11.7 H (4.5-11.0) K/uL RBC 4.18 L (4.30-5.90) M/uL Hgb 11.1 L (12.0-15.0) g/dL Hct 35.1 L (40.0-54.0) % MCV 84 (80-98) fL MCH 27 (27-31) pg MCHC 32 (32-36) % Plt Count 342 (150-400) K/uL Neut % (Auto) Hat Body Sorter Lymph % (Auto) Hat Body Sorter [place] % (Auto) Hat Body Sorter Eos % (Auto) Hat [employer] Sorter Baso % (Auto) Hat Body Sorter Add Manual Diff Yes Neutrophils % (Manual) 71 H (36-66) % Band Neutrophils % 5 (5-11) % Lymphocytes % (Manual) 16 L (24-44) % Monocytes % (Manual) 8 H (2-6) % Puncture Site R radial ABG pH 7.480 H (7.350-7.450) ABG pCO2 40.9 (35.0-42.0) mmHg ABG pO2 85.6 (75.0-100.0) mmHg ABG HCO3 30.1 H (22.0-26.0) mmol/L ABG Total CO2 27.0 (23.0-27.0) mmol/L ABG O2 Saturation 96.7 (95.0-98.0) % ABG O2 Content 15.4 (15.0-23.0) %vol ABG Base Excess 6.4 mm/L ABG Hemoglobin 11.5 L (13.5-18.0) g/dL ABG Oxyhemoglobin 94.7 % ABG Carboxyhemoglobin 1.2 (0.0-1.6) % ABG Methemoglobin 0.9 % Ruddy Test Ok O2 Delivery Device Ventilator Oxygen Flow Rate L Sodium 138 L (140-148) mmol/L Potassium 3.8 (3.6-5.2) mmol/L Chloride 100 (100-108) mmol/L Carbon Dioxide 31 (21-32) mmol/L Anion Gap 10.8 (5.0-14.0) mmol/L BUN 30 H (7-18) mg/dL Creatinine 1.2 (0.8-1.3) mg/dL Est Cr Clr Drug Dosing 71.05 mL/min Estimated GFR (MDRD) > 60 (>60) Glucose 133 H (74-106) mg/dL Calcium 8.8 (8.5-10.1) mg/dL Magnesium 2.1 (1.8-2.4) mg/dL Vancomycin Trough (10.0-20.0) ug/mL 09/23/18 Range/Units 08:49 WBC (4.5-11.0) K/uL RBC (4.30-5.90) M/uL Hgb (12.0-15.0) g/dL Hct (40.0-54.0) % MCV (80-98) fL MCH (27-31) pg MCHC (32-36) % Plt Count (150-400) K/uL Neut % (Auto) Lymph % (Auto) [place] % (Auto) Eos % (Auto) Baso % (Auto) Add Manual Diff Neutrophils % (Manual) (36-66) % Band Neutrophils % (5-11) % Lymphocytes % (Manual) (24-44) % Monocytes % (Manual) (2-6) % Puncture Site ABG pH (7.350-7.450) ABG pCO2 (35.0-42.0) mmHg ABG pO2 (75.0-100.0) mmHg ABG HCO3 (22.0-26.0) mmol/L ABG Total CO2 (23.0-27.0) mmol/L ABG O2 Saturation (95.0-98.0) % ABG O2 Content (15.0-23.0) %vol ABG Base Excess mm/L ABG Hemoglobin (13.5-18.0) g/dL ABG Oxyhemoglobin % ABG Carboxyhemoglobin (0.0-1.6) % ABG Methemoglobin % Ruddy Test O2 Delivery Device Oxygen Flow Rate L Sodium (140-148) mmol/L Potassium (3.6-5.2) mmol/L Chloride (100-108) mmol/L Carbon Dioxide (21-32) mmol/L Anion Gap (5.0-14.0) mmol/L BUN (7-18) mg/dL Creatinine (0.8-1.3) mg/dL Est Cr Clr Drug Dosing mL/min Estimated GFR (MDRD) (>60) Glucose (74-106) mg/dL Calcium (8.5-10.1) mg/dL Magnesium (1.8-2.4) mg/dL Vancomycin Trough 18.2 (10.0-20.0) ug/mL Petey Results Last 24 Hours: Microbiology 09/23/18 07:26 Gram Stain - Final Bronchial Alveolar Lavage - Lung, Left 09/23/18 07:26 JUDY Preparation - Final Other - Bronchoaveolar 09/23/18 07:25 Gram Stain - Final Tracheal Aspirate 09/23/18 07:25 JUDY Preparation - Final Other - Trachea Med Orders - Current: Current Medications Acetaminophen (Tylenol) 650 mg RECTAL Q4H PRN PRN Reason: Mild pain/fever Last Admin: 09/19/18 04:57 Dose: 650 mg Acetylcysteine (Mucomyst 20%) 400 mg INH BIDRT EVGENY Albuterol (Proventil Neb Soln) 2.5 mg NEB Q2H PRN PRN Reason: Shortness Of Breath/wheezing Last Admin: 09/19/18 23:53 Dose: 2.5 mg Albuterol/Ipratropium (Duoneb 3.0-0.5 Mg/3 Ml) 3 ml NEB QIDRT [facility] Last Admin: 09/23/18 07:42 Dose: 3 ml Dimethicone/Zinc Oxide (Rash Relief-Zinc Oxide [place]) 0 gm TOP ASDIRECTED PRN PRN Reason: rash Last Admin: 09/21/18 00:11 Dose: 6 spray Enoxaparin Sodium (Lovenox) 40 mg SUBCUT DAILY [facility] Last Admin: 09/23/18 08:24 Dose: 40 mg Levofloxacin/Dextrose 750 mg/ (Premix) 150 mls @ 100 mls/hr IV Q24H [facility] Last Admin: 09/22/18 16:44 Dose: 100 mls/hr Propofol (Diprivan 100 Ml) 100 mls @ 32.382 mls/hr IV TITRATE [facility]; Protocol Last Admin: 09/23/18 08:58 Dose: 40 mcg/kg/min, 43.176 mls/hr Piperacillin/Tazobactam/ (Dextrose 3.375 gm/ Premix) 50 mls @ 100 mls/hr IV Q6H [facility] Last Admin: 09/23/18 06:13 Dose: 100 mls/hr Sodium Chloride (Normal Saline) 1,000 mls @ 12.5 mls/hr IV ASDIRECTED [facility] Last Admin: 09/21/18 15:48 Dose: 12.5 mls/hr Sodium Chloride (Normal Saline) 1,000 mls @ 12.5 mls/hr IV ASDIRECTED [facility] Last Admin: 09/23/18 01:10 Dose: 12.5 mls/hr Vancomycin HCl 1.25 gm/ Sodium (Chloride) 250 mls @ 167 mls/hr IV Q12H [facility] Methylprednisolone Sodium Succinate (Solu-Medrol) 40 mg IV Q12H [facility] Last Admin: 09/22/18 22:17 Dose: 40 mg Midazolam HCl (Versed 1 Mg/Ml) 2 mg IVPUSH Q1H PRN PRN Reason: Agitation Last Admin: 09/20/18 23:41 Dose: 2 mg Midazolam HCl (Versed 1 Mg/Ml) 5 mg IV ASDIRECTED PRN PRN Reason: SEDATION FOR BRONCHOSCOPY Stop: 09/24/18 08:30 Morphine Sulfate (Morphine) 4 mg IV Q2H PRN PRN Reason: SEVERE PAIN (7-10) Last Admin: 09/22/18 04:42 Dose: 4 mg Nicotine (Habitrol) 21 mg TRDERM DAILY [facility] Last Admin: 09/23/18 08:22 Dose: 21 mg Ondansetron HCl (Zofran Odt) 4 mg PO Q6H PRN PRN Reason: Nausea able to take PO Ondansetron HCl (Zofran) 4 mg IV Q6H PRN PRN Reason: Nausea/Vomiting Pantoprazole Sodium (Protonix Iv) 40 mg IV Q24H [facility] Last Admin: 09/22/18 16:42 Dose: 40 mg Sodium Chloride (Saline Flush) 10 ml FLUSH ASDIRECTED PRN PRN Reason: Keep Vein Open Last Admin: 09/18/18 14:07 Dose: 10 ml Discontinued Medications Albuterol (Proventil Neb Soln) 2.5 mg NEB ONETIME ONE Stop: 09/18/18 13:51 Last Admin: 09/18/18 14:08 Dose: 2.5 mg Albuterol/Ipratropium (Duoneb 3.0-0.5 Mg/3 Ml) 3 ml NEB ONETIME ONE Stop: 09/18/18 13:26 Last Admin: 09/18/18 14:09 Dose: 3 ml Furosemide (Lasix) 40 mg IVPUSH NOW ONE Stop: 09/18/18 16:46 Last Admin: 09/18/18 17:04 Dose: Not Given Furosemide (Lasix) 40 mg IVPUSH ONETIME ONE Stop: 09/21/18 09:56 Last Admin: 09/21/18 09:51 Dose: 40 mg Furosemide (Lasix) 20 mg IVPUSH ONETIME ONE Stop: 09/21/18 21:01 Last Admin: 09/21/18 20:23 Dose: 20 mg Furosemide (Lasix) 20 mg IVPUSH NOW ONE Stop: 09/22/18 10:16 Last Admin: 09/22/18 11:10 Dose: 20 mg Sodium Chloride (Normal Saline) 250 mls @ 500 mls/hr IV ASDIRECTED [facility] Last Admin: 09/18/18 14:47 Dose: 500 mls/hr Heparin Sodium (Porcine) 5,000 (units/ Sodium Chloride) 501 mls @ 5 mls/hr IV ASDIRECTED [facility] Last Admin: 09/18/18 15:50 Dose: 5 mls/hr Ceftriaxone Sodium 2 gm/ (Sodium Chloride) 50 mls @ 100 mls/hr IV Q24H [facility] Sodium Chloride (Normal Saline) 1,000 mls @ 25 mls/hr IV ASDIRECTED [facility] Last Admin: 09/19/18 14:34 Dose: 25 mls/hr Sodium Chloride (Normal Saline) 1,000 mls @ 999 mls/hr IV ASDIRECTED [facility] Stop: 09/18/18 18:01 Last Admin: 09/18/18 18:42 Dose: 999 mls/hr Sodium Chloride (Normal Saline) 1,000 mls @ 999 mls/hr IV ASDIRECTED [facility] Stop: 09/18/18 18:16 Last Admin: 09/18/18 17:46 Dose: 999 mls/hr Sodium Chloride (Normal Saline) 1,000 mls @ 999 mls/hr IV ASDIRECTED [facility] Stop: 09/18/18 20:20 Vancomycin HCl 2 gm/ Sodium (Chloride) 250 mls @ 150 mls/hr IV Q12H [facility] Vancomycin HCl 1.5 gm/ Sodium (Chloride) 250 mls @ 150 mls/hr IV Q12H [facility] Last Admin: 09/22/18 21:26 Dose: 150 mls/hr Vancomycin HCl 2 gm/ Sodium (Chloride) 500 mls @ 250 mls/hr IV Q12H [facility] Last Admin: 09/18/18 18:57 Dose: 250 mls/hr Sodium Chloride (Normal Saline) 1,000 mls @ 100 mls/hr IV ASDIRECTED [facility] Last Admin: 09/20/18 20:23 Dose: 100 mls/hr Sodium Chloride (Normal Saline) 500 mls @ 500 mls/hr IV ASDIRECTED [facility] Stop: 09/19/18 10:16 Lidocaine HCl (Xylocaine 2% Viscous) Confirm Administered Dose 15 ml .ROUTE .STK -MED ONE Stop: 09/23/18 06:46 Lidocaine HCl (Xylocaine 4% Top Soln) Confirm Administered Dose 50 ml .ROUTE .STK-MED ONE Stop: 09/23/18 06:46 Methylprednisolone Sodium Succinate (Solu-Medrol) 125 mg IVPUSH ONETIME ONE Stop: 09/18/18 15:07 Last Admin: 09/18/18 15:50 Dose: 125 mg Methylprednisolone Sodium Succinate (Solu-Medrol) 62.5 mg IVPUSH Q8H [facility] Last Admin: 09/21/18 08:19 Dose: 62.5 mg Methylprednisolone Sodium Succinate (Solu-Medrol) 40 mg IV Q8H [facility] Last Admin: 09/22/18 08:03 Dose: 40 mg Midazolam HCl (Versed 1 Mg/Ml) 4 mg IVPUSH ONETIME ONE Stop: 09/18/18 16:53 Last Admin: 09/18/18 16:59 Dose: 4 mg Midazolam HCl (Versed 1 Mg/Ml) 2 mg IVPUSH ASDIRECTED ONE Stop: 09/18/18 16:54 Last Admin: 09/19/18 14:30 Dose: Not Given Midazolam HCl (Versed 1 Mg/Ml) Confirm Administered Dose 4 mg .ROUTE .STK-MED ONE Stop: 09/18/18 16:54 Last Admin: 09/18/18 17:02 Dose: Not Given Midazolam HCl (Versed 1 Mg/Ml) 5 mg IVPUSH ONETIME ONE Stop: 09/23/18 06:40 Last Admin: 09/23/18 07:30 Dose: 5 mg Midazolam HCl (Versed 1 Mg/Ml) Confirm Administered Dose 5 mg .ROUTE .STK-MED ONE Stop: 09/23/18 07:23 Last Admin: 09/23/18 08:24 Dose: Not Given Nicotine (Habitrol) 21 mg TRDERM ONETIME ONE Stop: 09/20/18 16:54 Last Admin: 09/20/18 17:41 Dose: 21 mg Propofol (Diprivan 20 Ml) Confirm Administered Dose 200 mg .ROUTE .STK-MED ONE Stop: 09/18/18 15:04 Succinylcholine Chloride (Quelicin) Confirm Administered Dose 200 mg .ROUTE .STK -MED ONE Stop: 09/18/18 15:04 Vancomycin HCl (Vancomycin) Confirm Administered Dose 2 gm .ROUTE .STK-MED ONE Stop: 09/18/18 18:40 Last Admin: 09/18/18 18:55 Dose: Not Given - Exam Quality Assessment: Supplemental Oxygen (Ventilator), Central Line/PICC, Urine Catheter, DVT Prophylaxis General: Sedated, Lethargic Lungs: Clear to Auscultation, Normal Respiratory Effort Cardiovascular: Regular Rate, Regular Rhythm, No Murmurs GI/Abdominal Exam: Soft, Non-Tender, No Organomegaly, No Distention Extremities: Normal Inspection, Non-Tender, No Pedal Edema Skin: Warm, Dry - Problem List Review Problem List Initiated/Reviewed/Updated: Yes - My Orders Last 24 Hours: My Active Orders 09/22/18 10:00 methylPREDNISolone Sod Succ [Solu-MEDROL] 40 mg IV Q12H 09/24/18 05:00 BASIC METABOLIC PANEL,BMP [CHEM] Timed BLOOD GAS ARTERIAL [BG] Timed CBC WITH AUTO DIFF [HEME] Timed MAGNESIUM [CHEM] Timed - Plan Plan:: ASSESSMENT AND PLAN - Bilateral pneumonia with sepsis - complicated by acute respiratory failure with hypoxia and hypercapnia. Continues to require FiO2 of 50% to maintain adequate saturations. Chest x-ray shows decreased aeration in the left lung compared to previous x-rays. CT scan of the chest actually showed better aeration of the left upper lobe, persistent dense consolidation of the left lower lobe. Bronchoscopy obtained this morning secretions were removed and have been sent for culture. -Antibiotic coverage with levofloxacin and Pip/Tazo -IV steroids -Repeat furosemide today -Scheduled and as needed nebulizers -Mechanical ventilation -Follow-up sputum culture -ABG in the morning -Chest x-ray in the morning COPD with acute exacerbation - History of tobacco dependence and patient is chronically on inhalers and nebulizers for management. Suspect pneumonia as the trigger as discussed above. -Management as above Tobacco dependence - Patient will need strong cessation recommendations once he is extubated. -Nicotine patch Morbid obesity - BMI greater than 50. Essential hypertension - normally on medications to lower blood pressure but blood pressure is significantly low at this time. Antihypertensive medications will remain on hold. Maintenance issues - - DVT prophylaxis - enoxaparin - GI prophylaxis - PPI - Nutrition - Nothing by mouth - Sauceda catheter - placed in the emergency room for strict intake and output monitoring Disposition - I would anticipate discharge home if he survives the hospital stay Family was updated today (brother, son) Primary care physician - Dr Sandra
[2018-09-23] MEDS ORDERED: Furosemide 20 MG/2 ML VIAL IVPUSH ONE (10:14)
[2018-09-23] MEDS: Acetylcysteine 20% 200 MG/ML 4 ML Nebulizer Soln SDV INH SCH ×2 (11:05→20:29)
[2018-09-23] MEDS: Dimethicone 20%/Zinc Oxide 25% 56 GM Spray Bottle TOP PRN (13:10)
[2018-09-23] MEDS: Pantoprazole 40 MG Vial IV SCH (17:03)
[2018-09-23] MEDS: Levofloxacin/Dextrose 5%-Water 750 MG in Premix Bag 1 BAG IV SCH (17:07)
[2018-09-23] MEDS: Morphine 4 MG/ML Syringe IV PRN (20:34)
[2018-09-24] MEDS: Piperacillin/Tazobactam/Dext 3.375 GM in Premix Bag 1 BAG IV SCH ×5 (00:24→23:38)
[2018-09-24] MEDS: Morphine 4 MG/ML Syringe IV PRN (02:24)
[2018-09-24] MEDS ORDERED: Lidocaine 4% Top Soln 50 ML Bottle ONE (06:47)
[2018-09-24] MEDS ORDERED: Lidocaine 2% Viscous Solution 15 ML Cup ONE (06:47)
[2018-09-24] MEDS ORDERED: Midazolam 1 MG/ML 2 ML SDV IV PRN (07:00)
[2018-09-24] MEDS: Acetylcysteine 20% 200 MG/ML 4 ML Nebulizer Soln SDV INH SCH ×2 (07:19→21:05)
[2018-09-24] MEDS: Albuterol/Ipratropium 3.0-0.5 MG/3 ML Neb Soln NEB SCH ×4 (07:19→21:06)
[2018-09-24] MEDS ORDERED: Magnesium Sulfate/Water 2 GM in Premix Bag 1 BAG IV ONE (09:00)
[2018-09-24] MEDS: Potassium Chloride 20 MEQ in Premix Bag 1 BAG IV SCH ×2 (09:22→11:57)
[2018-09-24] MEDS: methylPREDNISolone Sodium Succinate 40 MG/1 ML SDV IV SCH ×2 (09:28→21:04)
[2018-09-24] MEDS: Nicotine 21 MG/24 Hr Patch TRDERM SCH (09:29)
[2018-09-24] MEDS: Enoxaparin 40 MG/0.4 ML Syringe SUBCUT SCH (09:29)
--- NOTE | 2018-09-24 10:02 | PCM.PN ---
- General Info Date of Service: 09/24/18 Subjective Update: Mr. Hoskins has remained stable since yesterday shown modest improvement in respiratory status. FiO2 is now been tapered down to 40% with adequate oxygenation. Repeat bronchoscopy performed this morning by Dr. Butt showed only very thin modest secretions. He is unable to provide information concerning symptoms or review systems because of current sedation. - Patient Data Vitals - Most Recent: Last Vital Signs Temp 97.9 F 09/24/18 09:00 Pulse 79 09/24/18 09:00 Resp 18 09/24/18 09:00 BP 121/55 L 09/24/18 09:00 Pulse Ox 96 09/24/18 09:00 Weight - Most Recent: 396 lb 9.785 oz I&O - Last 24 Hours: Intake & Output 09/23/18 09/24/18 09/24/18 22:59 06:59 14:59 Intake Total 1009 1127 400 Output Total 1100 525 300 Balance -91 602 100 Lab Results Last 24 Hours: Laboratory Results - last 24 hr 09/24/18 09/24/18 09/24/18 Range/Units 03:17 03:17 03:17 WBC 11.3 H (4.5-11.0) K/uL RBC 3.69 L (4.30-5.90) M/uL Hgb 10.7 L (12.0-15.0) g/dL Hct 31.4 L (40.0-54.0) % MCV 85 (80-98) fL MCH 29 (27-31) pg MCHC 34 (32-36) % Plt Count 268 (150-400) K/uL Add Manual Diff Yes Neutrophils % (Manual) 79 H (36-66) % Band Neutrophils % 4 L (5-11) % Lymphocytes % (Manual) 10 L (24-44) % Monocytes % (Manual) 7 H (2-6) % Puncture Site Rt radial ABG pH 7.449 (7.350-7.450) ABG pCO2 45.0 H (35.0-42.0) mmHg ABG pO2 61.4 L (75.0-100.0) mmHg ABG HCO3 30.7 H (22.0-26.0) mmol/L ABG Total CO2 27.9 H (23.0-27.0) mmol/L ABG O2 Saturation 90.6 L (95.0-98.0) % ABG O2 Content 13.8 L (15.0-23.0) %vol ABG Base Excess 6.3 mm/L ABG Hemoglobin 11.0 L (13.5-18.0) g/dL ABG Oxyhemoglobin 89.4 % ABG Carboxyhemoglobin 0.5 (0.0-1.6) % ABG Methemoglobin 0.8 % Ruddy Test Pass O2 Delivery Device Ventilator Oxygen Flow Rate L Sodium 133 L (140-148) mmol/L Potassium 3.4 L (3.6-5.2) mmol/L Chloride 97 L (100-108) mmol/L Carbon Dioxide 30 (21-32) mmol/L Anion Gap 9.4 (5.0-14.0) mmol/L BUN 25 H (7-18) mg/dL Creatinine 1.1 (0.8-1.3) mg/dL Est Cr Clr Drug Dosing 77.51 mL/min Estimated GFR (MDRD) > 60 (>60) Glucose 153 H (74-106) mg/dL Calcium 9.5 (8.5-10.1) mg/dL Magnesium 1.7 L (1.8-2.4) mg/dL Petey Results Last 24 Hours: Microbiology 09/24/18 07:26 JUDY Preparation - Final Other - Bronch Wash 09/23/18 07:26 Gram Stain - Final Bronchial Alveolar Lavage - Lung, Left Respiratory Culture - Preliminary NO GROWTH AFTER 1 DAY 09/23/18 07:25 Gram Stain - Final Tracheal Aspirate Respiratory Culture - Preliminary NO GROWTH AFTER 1 DAY 09/23/18 07:26 JUDY Preparation - Final Other - Bronchoaveolar 09/23/18 07:25 JUDY Preparation - Final Other - Trachea Med Orders - Current: Current Medications Acetaminophen (Tylenol) 650 mg RECTAL Q4H PRN PRN Reason: Mild pain/fever Last Admin: 09/19/18 04:57 Dose: 650 mg Acetylcysteine (Mucomyst 20%) 400 mg INH BIDRT [facility] Last Admin: 09/24/18 07:19 Dose: 400 mg Albuterol (Proventil Neb Soln) 2.5 mg NEB Q2H PRN PRN Reason: Shortness Of Breath/wheezing Last Admin: 09/19/18 23:53 Dose: 2.5 mg Albuterol/Ipratropium (Duoneb 3.0-0.5 Mg/3 Ml) 3 ml NEB QIDRT [facility] Last Admin: 09/24/18 07:19 Dose: 3 ml Dimethicone/Zinc Oxide (Rash Relief-Zinc Oxide Force) 0 gm TOP ASDIRECTED PRN PRN Reason: rash Last Admin: 09/23/18 13:10 Dose: 1 spray Enoxaparin Sodium (Lovenox) 40 mg SUBCUT DAILY [facility] Last Admin: 09/24/18 09:29 Dose: 40 mg Furosemide (Lasix) 20 mg IVPUSH NOW ONE Stop: 09/24/18 09:57 Levofloxacin/Dextrose 750 mg/ (Premix) 150 mls @ 100 mls/hr IV Q24H [facility] Last Admin: 09/23/18 17:07 Dose: 100 mls/hr Propofol (Diprivan 100 Ml) 100 mls @ 32.382 mls/hr IV TITRATE [facility]; Protocol Last Admin: 09/24/18 07:04 Dose: 25 mcg/kg/min, 26.985 mls/hr Piperacillin/Tazobactam/ (Dextrose 3.375 gm/ Premix) 50 mls @ 100 mls/hr IV Q6H [facility] Last Admin: 09/24/18 05:15 Dose: 100 mls/hr Sodium Chloride (Normal Saline) 1,000 mls @ 12.5 mls/hr IV ASDIRECTED [facility] Last Admin: 09/21/18 15:48 Dose: 12.5 mls/hr Sodium Chloride (Normal Saline) 1,000 mls @ 12.5 mls/hr IV ASDIRECTED [facility] Last Admin: 09/23/18 01:10 Dose: 12.5 mls/hr Vancomycin HCl 1.25 gm/ Sodium (Chloride) 250 mls @ 167 mls/hr IV Q12H [facility] Last Admin: 09/24/18 09:42 Dose: 167 mls/hr Magnesium Sulfate 2 gm/ Premix 50 mls @ 25 mls/hr IV ONETIME ONE Stop: 09/24/18 10:59 Last Admin: 09/24/18 09:25 Dose: 25 mls/hr Potassium Chloride 20 meq/ (Premix) 100 mls @ 50 mls/hr IV Q2H [facility] Stop: 09/24/18 12:59 Last Admin: 09/24/18 09:22 Dose: 50 mls/hr Methylprednisolone Sodium Succinate (Solu-Medrol) 40 mg IV Q12H [facility] Last Admin: 09/24/18 09:28 Dose: 40 mg Midazolam HCl (Versed 1 Mg/Ml) 2 mg IVPUSH Q1H PRN PRN Reason: Agitation Last Admin: 09/20/18 23:41 Dose: 2 mg Morphine Sulfate (Morphine) 4 mg IV Q2H PRN PRN Reason: SEVERE PAIN (7-10) Last Admin: 09/24/18 02:24 Dose: 4 mg Nicotine (Habitrol) 21 mg TRDERM DAILY [facility] Last Admin: 09/24/18 09:29 Dose: 21 mg Ondansetron HCl (Zofran Odt) 4 mg PO Q6H PRN PRN Reason: Nausea able to take PO Ondansetron HCl (Zofran) 4 mg IV Q6H PRN PRN Reason: Nausea/Vomiting Pantoprazole Sodium (Protonix Iv) 40 mg IV Q24H [facility] Last Admin: 09/23/18 17:03 Dose: 40 mg Sodium Chloride (Saline Flush) 10 ml FLUSH ASDIRECTED PRN PRN Reason: Keep Vein Open Last Admin: 09/18/18 14:07 Dose: 10 ml Discontinued Medications Albuterol (Proventil Neb Soln) 2.5 mg NEB ONETIME ONE Stop: 09/18/18 13:51 Last Admin: 09/18/18 14:08 Dose: 2.5 mg Albuterol/Ipratropium (Duoneb 3.0-0.5 Mg/3 Ml) 3 ml NEB ONETIME ONE Stop: 09/18/18 13:26 Last Admin: 09/18/18 14:09 Dose: 3 ml Furosemide (Lasix) 40 mg IVPUSH NOW ONE Stop: 09/18/18 16:46 Last Admin: 09/18/18 17:04 Dose: Not Given Furosemide (Lasix) 40 mg IVPUSH ONETIME ONE Stop: 09/21/18 09:56 Last Admin: 09/21/18 09:51 Dose: 40 mg Furosemide (Lasix) 20 mg IVPUSH ONETIME ONE Stop: 09/21/18 21:01 Last Admin: 09/21/18 20:23 Dose: 20 mg Furosemide (Lasix) 20 mg IVPUSH NOW ONE Stop: 09/22/18 10:16 Last Admin: 09/22/18 11:10 Dose: 20 mg Furosemide (Lasix) 20 mg IVPUSH NOW ONE Stop: 09/23/18 10:15 Last Admin: 09/23/18 10:51 Dose: 20 mg Sodium Chloride (Normal Saline) 250 mls @ 500 mls/hr IV ASDIRECTED [facility] Last Admin: 09/18/18 14:47 Dose: 500 mls/hr Heparin Sodium (Porcine) 5,000 (units/ Sodium Chloride) 501 mls @ 5 mls/hr IV ASDIRECTED [facility] Last Admin: 09/18/18 15:50 Dose: 5 mls/hr Ceftriaxone Sodium 2 gm/ (Sodium Chloride) 50 mls @ 100 mls/hr IV Q24H [facility] Sodium Chloride (Normal Saline) 1,000 mls @ 25 mls/hr IV ASDIRECTED [facility] Last Admin: 09/19/18 14:34 Dose: 25 mls/hr Sodium Chloride (Normal Saline) 1,000 mls @ 999 mls/hr IV ASDIRECTED [facility] Stop: 09/18/18 18:01 Last Admin: 09/18/18 18:42 Dose: 999 mls/hr Sodium Chloride (Normal Saline) 1,000 mls @ 999 mls/hr IV ASDIRECTED [facility] Stop: 09/18/18 18:16 Last Admin: 09/18/18 17:46 Dose: 999 mls/hr Sodium Chloride (Normal Saline) 1,000 mls @ 999 mls/hr IV ASDIRECTED [facility] Stop: 09/18/18 20:20 Vancomycin HCl 2 gm/ Sodium (Chloride) 250 mls @ 150 mls/hr IV Q12H [facility] Vancomycin HCl 1.5 gm/ Sodium (Chloride) 250 mls @ 150 mls/hr IV Q12H [facility] Last Admin: 09/22/18 21:26 Dose: 150 mls/hr Vancomycin HCl 2 gm/ Sodium (Chloride) 500 mls @ 250 mls/hr IV Q12H [facility] Last Admin: 09/18/18 18:57 Dose: 250 mls/hr Sodium Chloride (Normal Saline) 1,000 mls @ 100 mls/hr IV ASDIRECTED [facility] Last Admin: 09/20/18 20:23 Dose: 100 mls/hr Sodium Chloride (Normal Saline) 500 mls @ 500 mls/hr IV ASDIRECTED [facility] Stop: 09/19/18 10:16 Lidocaine HCl (Xylocaine 2% Viscous) Confirm Administered Dose 15 ml .ROUTE .STK -MED ONE Stop: 09/23/18 06:46 Lidocaine HCl (Xylocaine 4% Top Soln) Confirm Administered Dose 50 ml .ROUTE .STK-MED ONE Stop: 09/23/18 06:46 Lidocaine HCl (Xylocaine 2% Viscous) Confirm Administered Dose 15 ml .ROUTE .STK -MED ONE Stop: 09/24/18 06:48 Last Admin: 09/24/18 07:25 Dose: 15 ml Lidocaine HCl (Xylocaine 4% Top Soln) Confirm Administered Dose 50 ml .ROUTE .STK-MED ONE Stop: 09/24/18 06:48 Last Admin: 09/24/18 07:49 Dose: 6 ml Methylprednisolone Sodium Succinate (Solu-Medrol) 125 mg IVPUSH ONETIME ONE Stop: 09/18/18 15:07 Last Admin: 09/18/18 15:50 Dose: 125 mg Methylprednisolone Sodium Succinate (Solu-Medrol) 62.5 mg IVPUSH Q8H [facility] Last Admin: 09/21/18 08:19 Dose: 62.5 mg Methylprednisolone Sodium Succinate (Solu-Medrol) 40 mg IV Q8H [facility] Last Admin: 09/22/18 08:03 Dose: 40 mg Midazolam HCl (Versed 1 Mg/Ml) 4 mg IVPUSH ONETIME ONE Stop: 09/18/18 16:53 Last Admin: 09/18/18 16:59 Dose: 4 mg Midazolam HCl (Versed 1 Mg/Ml) 2 mg IVPUSH ASDIRECTED ONE Stop: 09/18/18 16:54 Last Admin: 09/19/18 14:30 Dose: Not Given Midazolam HCl (Versed 1 Mg/Ml) Confirm Administered Dose 4 mg .ROUTE .STK-MED ONE Stop: 09/18/18 16:54 Last Admin: 09/18/18 17:02 Dose: Not Given Midazolam HCl (Versed 1 Mg/Ml) 5 mg IVPUSH ONETIME ONE Stop: 09/23/18 06:40 Last Admin: 09/23/18 07:30 Dose: 5 mg Midazolam HCl (Versed 1 Mg/Ml) Confirm Administered Dose 5 mg .ROUTE .STK-MED ONE Stop: 09/23/18 07:23 Last Admin: 09/23/18 08:24 Dose: Not Given Midazolam HCl (Versed 1 Mg/Ml) 5 mg IV ASDIRECTED PRN PRN Reason: SEDATION FOR BRONCHOSCOPY Stop: 09/24/18 08:30 Last Admin: 09/24/18 07:12 Dose: 5 mg Nicotine (Habitrol) 21 mg TRDERM ONETIME ONE Stop: 09/20/18 16:54 Last Admin: 09/20/18 17:41 Dose: 21 mg Propofol (Diprivan 20 Ml) Confirm Administered Dose 200 mg .ROUTE .STK-MED ONE Stop: 09/18/18 15:04 Succinylcholine Chloride (Quelicin) Confirm Administered Dose 200 mg .ROUTE .STK -MED ONE Stop: 09/18/18 15:04 Vancomycin HCl (Vancomycin) Confirm Administered Dose 2 gm .ROUTE .STK-MED ONE Stop: 09/18/18 18:40 Last Admin: 09/18/18 18:55 Dose: Not Given - Exam Quality Assessment: Supplemental Oxygen (Ventilator), Central Line/PICC, Urine Catheter, DVT Prophylaxis General: Sedated, Lethargic Lungs: Clear to Auscultation, Normal Respiratory Effort Cardiovascular: Regular Rate, Regular Rhythm, No Murmurs GI/Abdominal Exam: Soft, Non-Tender, No Organomegaly, No Distention Extremities: Non-Tender, Pedal Edema Skin: Warm, Dry - Problem List Review Problem List Initiated/Reviewed/Updated: Yes - My Orders Last 24 Hours: My Active Orders 09/24/18 09:00 Magnesium Sulfate/Water [Magnesium Sulfate 2 GM in Water 50 ML] 2 gm Premix Bag 1 bag IV ONETIME Potassium Chloride [KCL 20 MEQ in Water 100 ML] 20 meq Premix Bag 1 bag IV Q2H 09/24/18 09:56 Furosemide [Lasix] 20 mg IVPUSH NOW ONE 09/25/18 05:00 BASIC METABOLIC PANEL,BMP [CHEM] Timed BLOOD GAS ARTERIAL [BG] Timed CBC WITH AUTO DIFF [HEME] Timed MAGNESIUM [CHEM] Timed - Plan Plan:: ASSESSMENT AND PLAN - Bilateral pneumonia with sepsis - complicated by acute respiratory failure with hypoxia and hypercapnia. FiO2 is now down to 40% which he seems to be tolerating well, chest x-ray appears to be improved today. Bronchoscopy repeated this morning by Dr. Butt showing fairly minimal and more watery secretions. He has had continued good diuresis over the past few days, with negative fluid balance. -Begin daily spontaneous breathing trials today -Antibiotic coverage with vancomycin, levofloxacin and Pip/Tazo -IV steroids -Repeat furosemide today -Scheduled and as needed nebulizers -Mechanical ventilation -Follow-up sputum culture -ABG in the morning -Chest x-ray in the morning Acute hypoxic and hypercapnic respiratory failure-secondary to pneumonia -Management as above COPD with acute exacerbation - History of tobacco dependence and patient is chronically on inhalers and nebulizers for management. Suspect pneumonia as the trigger as discussed above. -Management as above Tobacco dependence - Patient will need strong cessation recommendations once he is extubated. -Nicotine patch Morbid obesity - BMI greater than 50. Essential hypertension - normally on medications to lower blood pressure but blood pressure is significantly low at this time. Antihypertensive medications will remain on hold. Maintenance issues - - DVT prophylaxis - enoxaparin - GI prophylaxis - PPI - Nutrition - Nothing by mouth - Sauceda catheter - placed in the emergency room for strict intake and output monitoring Disposition - I would anticipate discharge home if he survives the hospital stay Primary care physician - Dr Sandra
[2018-09-24] MEDS ORDERED: Furosemide 20 MG/2 ML VIAL IVPUSH ONE (10:15)
[2018-09-24] MEDS: Dimethicone 20%/Zinc Oxide 25% 56 GM Spray Bottle TOP PRN (10:54)
[2018-09-24] MEDS: Pantoprazole 40 MG Vial IV SCH (17:29)
[2018-09-24] MEDS: Levofloxacin/Dextrose 5%-Water 750 MG in Premix Bag 1 BAG IV SCH (17:29)
--- NOTE | 2018-09-25 04:53 | CRLCR ---
HISTORY: Respiratory failure. Ventilator management. COMPARISON: From yesterday. FINDINGS: A portable erect AP view of the chest was obtained at 0422 hours. There has been prominent clearing of the previously seen prominent consolidation of the left lower lung, consistent with clearing atelectasis. There is mild residual platelike atelectasis. The previously seen mild patchy right basilar infiltrate is improved. An endotracheal tube continues to have its tip in satisfactory position 2 centimeters below the thoracic inlet The heart remains normal in size. The mediastinum is normal in appearance. The osseous structures are normal in appearance for the patient`s age. IMPRESSION: Prominent improvement in left basilar atelectasis, now with mild residual platelike atelectasis in the left lung base. Clearing mild patchy platelike atelectasis in the right lung base. Continued satisfactory positioning of endotracheal tube. Dictated by George Lopez MD @ Sep 25 2018 4:49AM Signed by Dr. George Lopez @ Sep 25 2018 4:52AM
[2018-09-25] MEDS: Piperacillin/Tazobactam/Dext 3.375 GM in Premix Bag 1 BAG IV SCH ×2 (05:12→12:48)
[2018-09-25] MEDS: Acetylcysteine 20% 200 MG/ML 4 ML Nebulizer Soln SDV INH SCH ×2 (07:13→21:19)
[2018-09-25] MEDS: Albuterol/Ipratropium 3.0-0.5 MG/3 ML Neb Soln NEB SCH ×4 (07:13→21:20)
[2018-09-25] MEDS: methylPREDNISolone Sodium Succinate 40 MG/1 ML SDV IV SCH (10:30)
[2018-09-25] MEDS: Nicotine 21 MG/24 Hr Patch TRDERM SCH (10:30)
[2018-09-25] MEDS: Enoxaparin 40 MG/0.4 ML Syringe SUBCUT SCH (10:32)
[2018-09-25] MEDS: Dimethicone 20%/Zinc Oxide 25% 56 GM Spray Bottle TOP PRN ×2 (12:51→15:52)
[2018-09-25] MEDS ORDERED: Furosemide 20 MG/2 ML VIAL IVPUSH ONE (14:45)
--- NOTE | 2018-09-25 15:05 | PCM.PN ---
- General Info Date of Service: 09/25/18 Subjective Update: Mr. Hoskins is shown further improvement over the past 24 hours. Vital signs have remained stable and he has had no significant temperature elevations. He did well with initial spontaneous breathing trial done yesterday afternoon. Spontaneous breathing trial was repeated this morning and he again did well and since has been extubated and transitioned to noninvasive positive pressure ventilation. He has been experiencing some diarrhea, likely secondary to multiple antibiotics. There is been no significant fever, abdominal pain, or blood noted in the stool. Functional Status: Reports: Pain Controlled - Review of Systems General: Reports: Weakness. Denies: Fever, Chills Pulmonary: Reports: No Symptoms Cardiovascular: Reports: No Symptoms Gastrointestinal: Reports: Diarrhea. Denies: Abdominal Pain, Hematochezia, Melena, Nausea, Vomiting - Patient Data Vitals - Most Recent: Last Vital Signs Temp 98.6 F 09/25/18 14:00 Pulse 88 09/25/18 14:59 Resp 21 H 09/25/18 14:00 BP 117/80 09/25/18 14:00 Pulse Ox 99 09/25/18 14:00 Weight - Most Recent: 396 lb 9.785 oz I&O - Last 24 Hours: Intake & Output 09/25/18 09/25/18 09/25/18 06:59 14:59 22:59 Intake Total 1039 200 Output Total 550 300 Balance 489 -100 Lab Results Last 24 Hours: Laboratory Results - last 24 hr 09/25/18 09/25/18 09/25/18 Range/Units 04:50 04:50 04:50 WBC 15.3 H (4.5-11.0) K/uL RBC 4.14 L (4.30-5.90) M/uL Hgb 11.3 L (12.0-15.0) g/dL Hct 34.6 L (40.0-54.0) % MCV 84 (80-98) fL MCH 27 (27-31) pg MCHC 33 (32-36) % Plt Count 277 (150-400) K/uL Add Manual Diff Yes Neutrophils % (Manual) 78 H (36-66) % Band Neutrophils % 5 (5-11) % Lymphocytes % (Manual) 13 L (24-44) % Monocytes % (Manual) 4 (2-6) % Puncture Site R radial ABG pH 7.430 (7.350-7.450) ABG pCO2 45.4 H (35.0-42.0) mmHg ABG pO2 86.6 (75.0-100.0) mmHg ABG HCO3 29.6 H (22.0-26.0) mmol/L ABG Total CO2 26.8 (23.0-27.0) mmol/L ABG O2 Saturation 96.1 (95.0-98.0) % ABG O2 Content 15.5 (15.0-23.0) %vol ABG Base Excess 5.1 mm/L ABG Hemoglobin 11.6 L (13.5-18.0) g/dL ABG Oxyhemoglobin 94.8 % ABG Carboxyhemoglobin 0.5 (0.0-1.6) % ABG Methemoglobin 0.9 % Ruddy Test Ok O2 Delivery Device Ventilator Oxygen Flow Rate L Sodium 137 L (140-148) mmol/L Potassium 3.7 (3.6-5.2) mmol/L Chloride 101 (100-108) mmol/L Carbon Dioxide 29 (21-32) mmol/L Anion Gap 10.7 (5.0-14.0) mmol/L BUN 30 H (7-18) mg/dL Creatinine 1.2 (0.8-1.3) mg/dL Est Cr Clr Drug Dosing 71.05 mL/min Estimated GFR (MDRD) > 60 (>60) Glucose 128 H (74-106) mg/dL Calcium 9.5 (8.5-10.1) mg/dL Magnesium 2.1 (1.8-2.4) mg/dL Petey Results Last 24 Hours: Microbiology 09/23/18 07:25 Gram Stain - Final Tracheal Aspirate Respiratory Culture - Preliminary 09/23/18 07:26 Gram Stain - Final Bronchial Alveolar Lavage - Lung, Left Respiratory Culture - Final NO GROWTH AFTER 2 DAYS 09/24/18 07:26 Gram Stain - Final Bronchial Washings - Mixed Respiratory Culture - Preliminary NO GROWTH AFTER 1 DAY Med Orders - Current: Current Medications Acetaminophen (Tylenol) 650 mg RECTAL Q4H PRN PRN Reason: Mild pain/fever Last Admin: 09/19/18 04:57 Dose: 650 mg Acetylcysteine (Mucomyst 20%) 400 mg INH BIDRT [facility] Last Admin: 09/25/18 07:13 Dose: 400 mg Albuterol (Proventil Neb Soln) 2.5 mg NEB Q2H PRN PRN Reason: Shortness Of Breath/wheezing Last Admin: 09/19/18 23:53 Dose: 2.5 mg Albuterol/Ipratropium (Duoneb 3.0-0.5 Mg/3 Ml) 3 ml NEB QIDRT [facility] Last Admin: 09/25/18 14:58 Dose: 3 ml Dimethicone/Zinc Oxide (Rash Relief-Zinc Oxide [place]) 0 gm TOP ASDIRECTED PRN PRN Reason: rash Last Admin: 09/25/18 12:51 Dose: 5 spray Enoxaparin Sodium (Lovenox) 40 mg SUBCUT DAILY [facility] Last Admin: 09/25/18 10:32 Dose: 40 mg Levofloxacin/Dextrose 750 mg/ (Premix) 150 mls @ 100 mls/hr IV Q24H [facility] Last Admin: 09/24/18 17:29 Dose: 100 mls/hr Lactobacillus Rhamnosus (Culturelle) 1 cap PO BID [facility] Loperamide HCl (Imodium) 2 mg PO Q4H PRN PRN Reason: Diarrhea Nicotine (Habitrol) 21 mg TRDERM DAILY [facility] Last Admin: 09/25/18 10:30 Dose: 21 mg Ondansetron HCl (Zofran Odt) 4 mg PO Q6H PRN PRN Reason: Nausea able to take PO Ondansetron HCl (Zofran) 4 mg IV Q6H PRN PRN Reason: Nausea/Vomiting Oxycodone HCl (Oxycodone) 5 mg PO Q4H PRN PRN Reason: Pain Pantoprazole Sodium (Protonix) 40 mg PO DAILY@0730 [facility] Prednisone (Prednisone) 40 mg PO WITHBREAKFAST [facility] Sodium Chloride (Saline Flush) 10 ml FLUSH ASDIRECTED PRN PRN Reason: Keep Vein Open Last Admin: 09/18/18 14:07 Dose: 10 ml Discontinued Medications Albuterol (Proventil Neb Soln) 2.5 mg NEB ONETIME ONE Stop: 09/18/18 13:51 Last Admin: 09/18/18 14:08 Dose: 2.5 mg Albuterol/Ipratropium (Duoneb 3.0-0.5 Mg/3 Ml) 3 ml NEB ONETIME ONE Stop: 09/18/18 13:26 Last Admin: 09/18/18 14:09 Dose: 3 ml Furosemide (Lasix) 40 mg IVPUSH NOW ONE Stop: 09/18/18 16:46 Last Admin: 09/18/18 17:04 Dose: Not Given Furosemide (Lasix) 40 mg IVPUSH ONETIME ONE Stop: 09/21/18 09:56 Last Admin: 09/21/18 09:51 Dose: 40 mg Furosemide (Lasix) 20 mg IVPUSH ONETIME ONE Stop: 09/21/18 21:01 Last Admin: 09/21/18 20:23 Dose: 20 mg Furosemide (Lasix) 20 mg IVPUSH NOW ONE Stop: 09/22/18 10:16 Last Admin: 09/22/18 11:10 Dose: 20 mg Furosemide (Lasix) 20 mg IVPUSH NOW ONE Stop: 09/23/18 10:15 Last Admin: 09/23/18 10:51 Dose: 20 mg Furosemide (Lasix) 20 mg IVPUSH NOW ONE Stop: 09/24/18 10:16 Last Admin: 09/24/18 10:55 Dose: 20 mg Furosemide (Lasix) 20 mg IVPUSH NOW ONE Stop: 09/25/18 14:46 Sodium Chloride (Normal Saline) 250 mls @ 500 mls/hr IV ASDIRECTED [facility] Last Admin: 09/18/18 14:47 Dose: 500 mls/hr Heparin Sodium (Porcine) 5,000 (units/ Sodium Chloride) 501 mls @ 5 mls/hr IV ASDIRECTED [facility] Last Admin: 09/18/18 15:50 Dose: 5 mls/hr Ceftriaxone Sodium 2 gm/ (Sodium Chloride) 50 mls @ 100 mls/hr IV Q24H [facility] Propofol (Diprivan 100 Ml) 100 mls @ 32.382 mls/hr IV TITRATE [facility]; Protocol Last Admin: 09/25/18 05:11 Dose: 25 mcg/kg/min, 26.985 mls/hr Sodium Chloride (Normal Saline) 1,000 mls @ 25 mls/hr IV ASDIRECTED [facility] Last Admin: 09/19/18 14:34 Dose: 25 mls/hr Piperacillin/Tazobactam/ (Dextrose 3.375 gm/ Premix) 50 mls @ 100 mls/hr IV Q6H [facility] Last Admin: 09/25/18 12:48 Dose: 100 mls/hr Sodium Chloride (Normal Saline) 1,000 mls @ 999 mls/hr IV ASDIRECTED [facility] Stop: 09/18/18 18:01 Last Admin: 09/18/18 18:42 Dose: 999 mls/hr Sodium Chloride (Normal Saline) 1,000 mls @ 999 mls/hr IV ASDIRECTED [facility] Stop: 09/18/18 18:16 Last Admin: 09/18/18 17:46 Dose: 999 mls/hr Sodium Chloride (Normal Saline) 1,000 mls @ 999 mls/hr IV ASDIRECTED [facility] Stop: 09/18/18 20:20 Vancomycin HCl 2 gm/ Sodium (Chloride) 250 mls @ 150 mls/hr IV Q12H [facility] Vancomycin HCl 1.5 gm/ Sodium (Chloride) 250 mls @ 150 mls/hr IV Q12H [facility] Last Admin: 09/22/18 21:26 Dose: 150 mls/hr Vancomycin HCl 2 gm/ Sodium (Chloride) 500 mls @ 250 mls/hr IV Q12H [facility] Last Admin: 09/18/18 18:57 Dose: 250 mls/hr Sodium Chloride (Normal Saline) 1,000 mls @ 100 mls/hr IV ASDIRECTED [facility] Last Admin: 09/20/18 20:23 Dose: 100 mls/hr Sodium Chloride (Normal Saline) 500 mls @ 500 mls/hr IV ASDIRECTED [facility] Stop: 09/19/18 10:16 Sodium Chloride (Normal Saline) 1,000 mls @ 12.5 mls/hr IV ASDIRECTED [facility] Last Admin: 09/21/18 15:48 Dose: 12.5 mls/hr Sodium Chloride (Normal Saline) 1,000 mls @ 12.5 mls/hr IV ASDIRECTED [facility] Last Admin: 09/23/18 01:10 Dose: 12.5 mls/hr Vancomycin HCl 1.25 gm/ Sodium (Chloride) 250 mls @ 167 mls/hr IV Q12H [facility] Last Admin: 09/25/18 10:31 Dose: 167 mls/hr Magnesium Sulfate 2 gm/ Premix 50 mls @ 25 mls/hr IV ONETIME ONE Stop: 09/24/18 10:59 Last Admin: 09/24/18 09:25 Dose: 25 mls/hr Potassium Chloride 20 meq/ (Premix) 100 mls @ 50 mls/hr IV Q2H [facility] Stop: 09/24/18 12:59 Last Admin: 09/24/18 11:57 Dose: 50 mls/hr Lidocaine HCl (Xylocaine 2% Viscous) Confirm Administered Dose 15 ml .ROUTE .STK -MED ONE Stop: 09/23/18 06:46 Lidocaine HCl (Xylocaine 4% Top Soln) Confirm Administered Dose 50 ml .ROUTE .STK-MED ONE Stop: 09/23/18 06:46 Lidocaine HCl (Xylocaine 2% Viscous) Confirm Administered Dose 15 ml .ROUTE .STK -MED ONE Stop: 09/24/18 06:48 Last Admin: 09/24/18 07:25 Dose: 15 ml Lidocaine HCl (Xylocaine 4% Top Soln) Confirm Administered Dose 50 ml .ROUTE .STK-MED ONE Stop: 09/24/18 06:48 Last Admin: 09/24/18 07:49 Dose: 6 ml Methylprednisolone Sodium Succinate (Solu-Medrol) 125 mg IVPUSH ONETIME ONE Stop: 09/18/18 15:07 Last Admin: 09/18/18 15:50 Dose: 125 mg Methylprednisolone Sodium Succinate (Solu-Medrol) 62.5 mg IVPUSH Q8H [facility] Last Admin: 09/21/18 08:19 Dose: 62.5 mg Methylprednisolone Sodium Succinate (Solu-Medrol) 40 mg IV Q8H [facility] Last Admin: 09/22/18 08:03 Dose: 40 mg Methylprednisolone Sodium Succinate (Solu-Medrol) 40 mg IV Q12H [facility] Last Admin: 09/25/18 10:30 Dose: 40 mg Midazolam HCl (Versed 1 Mg/Ml) 4 mg IVPUSH ONETIME ONE Stop: 09/18/18 16:53 Last Admin: 09/18/18 16:59 Dose: 4 mg Midazolam HCl (Versed 1 Mg/Ml) 2 mg IVPUSH ASDIRECTED ONE Stop: 09/18/18 16:54 Last Admin: 09/19/18 14:30 Dose: Not Given Midazolam HCl (Versed 1 Mg/Ml) Confirm Administered Dose 4 mg .ROUTE .STK-MED ONE Stop: 09/18/18 16:54 Last Admin: 09/18/18 17:02 Dose: Not Given Midazolam HCl (Versed 1 Mg/Ml) 2 mg IVPUSH Q1H PRN PRN Reason: Agitation Last Admin: 09/20/18 23:41 Dose: 2 mg Midazolam HCl (Versed 1 Mg/Ml) 5 mg IVPUSH ONETIME ONE Stop: 09/23/18 06:40 Last Admin: 09/23/18 07:30 Dose: 5 mg Midazolam HCl (Versed 1 Mg/Ml) Confirm Administered Dose 5 mg .ROUTE .STK-MED ONE Stop: 09/23/18 07:23 Last Admin: 09/23/18 08:24 Dose: Not Given Midazolam HCl (Versed 1 Mg/Ml) 5 mg IV ASDIRECTED PRN PRN Reason: SEDATION FOR BRONCHOSCOPY Stop: 09/24/18 08:30 Last Admin: 09/24/18 07:12 Dose: 5 mg Morphine Sulfate (Morphine) 4 mg IV Q2H PRN PRN Reason: SEVERE PAIN (7-10) Last Admin: 09/24/18 02:24 Dose: 4 mg Nicotine (Habitrol) 21 mg TRDERM ONETIME ONE Stop: 09/20/18 16:54 Last Admin: 09/20/18 17:41 Dose: 21 mg Pantoprazole Sodium (Protonix Iv) 40 mg IV Q24H [facility] Last Admin: 09/24/18 17:29 Dose: 40 mg Propofol (Diprivan 20 Ml) Confirm Administered Dose 200 mg .ROUTE .STK-MED ONE Stop: 09/18/18 15:04 Succinylcholine Chloride (Quelicin) Confirm Administered Dose 200 mg .ROUTE .STK -MED ONE Stop: 09/18/18 15:04 Vancomycin HCl (Vancomycin) Confirm Administered Dose 2 gm .ROUTE .STK-MED ONE Stop: 09/18/18 18:40 Last Admin: 09/18/18 18:55 Dose: Not Given - Exam Quality Assessment: Supplemental Oxygen (Noninvasive positive pressure ventilation), Central Line/PICC, Urine Catheter, DVT Prophylaxis General: Alert, Oriented, Cooperative, Mild Distress Lungs: Decreased Breath Sounds, Wheezing. No: Crackles, Rales, Rhonchi, Rub Cardiovascular: Regular Rhythm, No Murmurs, Tachycardia GI/Abdominal Exam: Soft, Non-Tender, No Organomegaly, No Distention Extremities: Non-Tender, Pedal Edema - Problem List Review Problem List Initiated/Reviewed/Updated: Yes - My Orders Last 24 Hours: My Active Orders 09/25/18 14:20 Loperamide [Imodium] 2 mg PO Q4H PRN 09/25/18 14:27 oxyCODONE 5 mg PO Q4H PRN 09/25/18 14:28 BIPAP Adult [RT BiPAP/CPAP] [RC] ASDIRECTED 09/25/18 14:30 Lactobacillus Rhamnosus GG [Culturelle] 1 cap PO BID Convert IV to Saline Lock [OM.PC] Routine 09/25/18 17:00 BLOOD GAS ARTERIAL [BG] Stat 09/25/18 Lunch Regular Diet [DIET] 09/26/18 05:00 BASIC METABOLIC PANEL,BMP [CHEM] Timed BLOOD GAS ARTERIAL [BG] Timed CBC WITH AUTO DIFF [HEME] Timed MAGNESIUM [CHEM] Timed 09/26/18 07:30 Pantoprazole [ProTONIX] 40 mg PO DAILY@0730 09/26/18 08:00 predniSONE 40 mg PO WITHBREAKFAST - Plan Plan:: ASSESSMENT AND PLAN - Bilateral pneumonia with sepsis - he has passed a spontaneous breathing trial this morning and has been extubated with transition to noninvasive positive pressure ventilation. Doing well thus far with no evidence of significant respiratory compromise. Chest x-ray has shown good improvement over the past 2 days and he continues to experience a good diuresis. -Continue noninvasive positive pressure ventilation -Discontinue vancomycin and Zosyn -10 unit levofloxacin one additional day -Prednisone 40 mg by mouth daily -Repeat furosemide today -Scheduled and as needed nebulizers -ABG in the morning -Chest x-ray in the morning Acute hypoxic and hypercapnic respiratory failure-secondary to pneumonia -Management as above COPD with acute exacerbation - History of tobacco dependence and patient is chronically on inhalers and nebulizers for management. Suspect pneumonia as the trigger as discussed above. -Management as above Diarrhea-clear secondary to antibiotics, no indication for C. difficile testing -Imodium as needed Tobacco dependence - Patient will need strong cessation recommendations once he is extubated. -Nicotine patch Morbid obesity - BMI greater than 50. Essential hypertension - normally on medications to lower blood pressure but blood pressure is significantly low at this time. Antihypertensive medications will remain on hold. Maintenance issues - - DVT prophylaxis - enoxaparin - GI prophylaxis - PPI - Nutrition - regular diet - Sauceda catheter - placed in the emergency room for strict intake and output monitoring Disposition - I would anticipate discharge home if he survives the hospital stay Primary care physician - Dr Sandra
[2018-09-25] MEDS: Loperamide 2 MG Cap PO PRN ×2 (15:42→20:55)
[2018-09-25] MEDS: Lactobacillus Rhamnosus GG (Probiotic) Cap PO SCH ×2 (15:42→21:15)
[2018-09-25] MEDS: Levofloxacin/Dextrose 5%-Water 750 MG in Premix Bag 1 BAG IV SCH (16:39)
[2018-09-25] MEDS: oxyCODONE 5 MG Tab PO PRN (21:16)
[2018-09-26] MEDS: Loperamide 2 MG Cap PO PRN ×2 (01:01→14:46)
[2018-09-26] MEDS ORDERED: Acetaminophen 325 MG Tab, 50 Tab Bulk Bottle PO PRN (03:54)
[2018-09-26] MEDS: oxyCODONE 5 MG Tab PO PRN (04:19)
[2018-09-26] MEDS: Acetaminophen 325 MG Tab PO PRN ×3 (04:21→22:13)
[2018-09-26] MEDS: Acetylcysteine 20% 200 MG/ML 4 ML Nebulizer Soln SDV INH SCH ×2 (07:17→22:14)
[2018-09-26] MEDS: Albuterol/Ipratropium 3.0-0.5 MG/3 ML Neb Soln NEB SCH ×4 (07:17→22:14)
[2018-09-26] MEDS ORDERED: Furosemide 20 MG/2 ML VIAL IVPUSH ONE (08:21)
[2018-09-26] MEDS ORDERED: Potassium Chloride 20 MEQ Tab.ER PO ONE (08:30)
[2018-09-26] MEDS: Pantoprazole 40 MG Tab.CR PO SCH (09:29)
[2018-09-26] MEDS: Lactobacillus Rhamnosus GG (Probiotic) Cap PO SCH ×2 (09:29→21:02)
[2018-09-26] MEDS: Nicotine 21 MG/24 Hr Patch TRDERM SCH (09:29)
[2018-09-26] MEDS: predniSONE 20 MG Tab PO SCH (09:29)
[2018-09-26] MEDS ORDERED: Potassium Chloride Riders 40 MEQ in Premix Bag 1 BAG IV ONE (09:30)
[2018-09-26] MEDS: Enoxaparin 40 MG/0.4 ML Syringe SUBCUT SCH (09:30)
[2018-09-26] MEDS ORDERED: Furosemide 20 MG/2 ML VIAL ONE (10:35)
--- NOTE | 2018-09-26 10:43 | PCM.PN ---
- General Info Date of Service: 09/26/18 Subjective Update: Mr. Hoskins has been stable since extubation yesterday, initially transitioned to noninvasive positive pressure ventilation, now on nasal cannula with adequate oxygenation. Feeding is going well thus far and he has been able to transfer to the chair using the easy stand. Vital signs have been stable and he has remained afebrile. Functional Status: Reports: Tolerating Diet - Review of Systems General: Reports: Weakness. Denies: Fever, Chills Pulmonary: Reports: No Symptoms Cardiovascular: Reports: No Symptoms Gastrointestinal: Reports: No Symptoms - Patient Data Vitals - Most Recent: Last Vital Signs Temp 98.6 F 09/26/18 08:00 Pulse 94 09/26/18 08:00 Resp 18 09/26/18 08:00 BP 113/64 09/26/18 08:00 Pulse Ox 94 L 09/26/18 08:00 Weight - Most Recent: 396 lb 9.785 oz I&O - Last 24 Hours: Intake & Output 09/25/18 09/26/18 09/26/18 22:59 06:59 14:59 Intake Total 986 360 Output Total 1625 500 Balance -639 -140 Lab Results Last 24 Hours: Laboratory Results - last 24 hr 09/25/18 09/26/18 09/26/18 Range/Units 17:00 04:20 04:35 WBC 13.9 H (4.5-11.0) K/uL RBC 3.91 L (4.30-5.90) M/uL Hgb 10.7 L (12.0-15.0) g/dL Hct 33.1 L (40.0-54.0) % MCV 85 (80-98) fL MCH 27 (27-31) pg MCHC 32 (32-36) % Plt Count 142 L (150-400) K/uL Add Manual Diff Yes Neutrophils % (Manual) 63 (36-66) % Band Neutrophils % 5 (5-11) % Lymphocytes % (Manual) 22 L (24-44) % Monocytes % (Manual) 9 H (2-6) % Eosinophils % (Manual) 1 L (2-4) % Puncture Site Lt radial R radial ABG pH 7.448 7.411 (7.350-7.450) ABG pCO2 44.3 H 50.0 H (35.0-42.0) mmHg ABG pO2 70.3 L 107.0 H (75.0-100.0) mmHg ABG HCO3 30.2 H 31.1 H (22.0-26.0) mmol/L ABG Total CO2 27.1 H 28.5 H (23.0-27.0) mmol/L ABG O2 Saturation 93.7 L 97.7 (95.0-98.0) % ABG O2 Content 15.4 15.0 (15.0-23.0) %vol ABG Base Excess 5.8 5.9 mm/L ABG Hemoglobin 11.9 L 10.9 L (13.5-18.0) g/dL ABG Oxyhemoglobin 92.4 96.3 % ABG Carboxyhemoglobin 0.5 0.6 (0.0-1.6) % ABG Methemoglobin 0.9 0.8 % Ruddy Test Passed Ok O2 Delivery Device Bipap Bipap Oxygen Flow Rate L Sodium (140-148) mmol/L Potassium (3.6-5.2) mmol/L Chloride (100-108) mmol/L Carbon Dioxide (21-32) mmol/L Anion Gap (5.0-14.0) mmol/L BUN (7-18) mg/dL Creatinine (0.8-1.3) mg/dL Est Cr Clr Drug Dosing mL/min Estimated GFR (MDRD) (>60) Glucose (74-106) mg/dL Calcium (8.5-10.1) mg/dL Magnesium (1.8-2.4) mg/dL 09/26/18 Range/Units 04:50 WBC (4.5-11.0) K/uL RBC (4.30-5.90) M/uL Hgb (12.0-15.0) g/dL Hct (40.0-54.0) % MCV (80-98) fL MCH (27-31) pg MCHC (32-36) % Plt Count (150-400) K/uL Add Manual Diff Neutrophils % (Manual) (36-66) % Band Neutrophils % (5-11) % Lymphocytes % (Manual) (24-44) % Monocytes % (Manual) (2-6) % Eosinophils % (Manual) (2-4) % Puncture Site ABG pH (7.350-7.450) ABG pCO2 (35.0-42.0) mmHg ABG pO2 (75.0-100.0) mmHg ABG HCO3 (22.0-26.0) mmol/L ABG Total CO2 (23.0-27.0) mmol/L ABG O2 Saturation (95.0-98.0) % ABG O2 Content (15.0-23.0) %vol ABG Base Excess mm/L ABG Hemoglobin (13.5-18.0) g/dL ABG Oxyhemoglobin % ABG Carboxyhemoglobin (0.0-1.6) % ABG Methemoglobin % Ruddy Test O2 Delivery Device Oxygen Flow Rate L Sodium 140 (140-148) mmol/L Potassium 3.1 L (3.6-5.2) mmol/L Chloride 103 (100-108) mmol/L Carbon Dioxide 29 (21-32) mmol/L Anion Gap 11.1 (5.0-14.0) mmol/L BUN 29 H (7-18) mg/dL Creatinine 1.2 (0.8-1.3) mg/dL Est Cr Clr Drug Dosing 71.05 mL/min Estimated GFR (MDRD) > 60 (>60) Glucose 125 H (74-106) mg/dL Calcium 9.4 (8.5-10.1) mg/dL Magnesium 1.8 (1.8-2.4) mg/dL Petey Results Last 24 Hours: Microbiology 09/24/18 07:26 Gram Stain - Final Bronchial Washings - Mixed Respiratory Culture - Final NO GROWTH AFTER 2 DAYS 09/23/18 07:25 Gram Stain - Final Tracheal Aspirate Respiratory Culture - Final Staph Hominis Ss Hominis 09/23/18 07:25 JUDY Preparation - Final Other - Trachea 09/23/18 07:26 AFB Specimen Processing Tissue - Final Bronchial Alveolar Lavage - Lung, Left Acid Fast Bacilli Smear - Final Acid Fast Bacilli Culture - Preliminary 09/23/18 07:25 AFB Specimen Processing Tissue - Final Tracheal Lavage Acid Fast Bacilli Smear - Final Acid Fast Bacilli Culture - Preliminary 09/23/18 07:26 Gram Stain - Final Bronchial Alveolar Lavage - Lung, Left Respiratory Culture - Final NO GROWTH AFTER 2 DAYS Med Orders - Current: Current Medications Acetaminophen (Tylenol) 650 mg RECTAL Q4H PRN PRN Reason: Mild pain/fever Last Admin: 09/19/18 04:57 Dose: 650 mg Acetaminophen (Tylenol) 650 mg PO Q4H PRN PRN Reason: Pain Last Admin: 09/26/18 04:21 Dose: 650 mg Acetylcysteine (Mucomyst 20%) 400 mg INH BIDRT [facility] Last Admin: 09/26/18 07:17 Dose: 400 mg Albuterol (Proventil Neb Soln) 2.5 mg NEB Q2H PRN PRN Reason: Shortness Of Breath/wheezing Last Admin: 09/19/18 23:53 Dose: 2.5 mg Albuterol/Ipratropium (Duoneb 3.0-0.5 Mg/3 Ml) 3 ml NEB QIDRT [facility] Last Admin: 09/26/18 07:17 Dose: 3 ml Dimethicone/Zinc Oxide (Rash Relief-Zinc Oxide [place]) 0 gm TOP ASDIRECTED PRN PRN Reason: rash Last Admin: 09/25/18 15:52 Dose: 3 spray Enoxaparin Sodium (Lovenox) 40 mg SUBCUT DAILY [facility] Last Admin: 09/26/18 09:30 Dose: 40 mg Levofloxacin/Dextrose 750 mg/ (Premix) 150 mls @ 100 mls/hr IV Q24H [facility] Last Admin: 09/25/18 16:39 Dose: 100 mls/hr Potassium Chloride 40 meq/ (Premix) 100 mls @ 25 mls/hr IV ONETIME ONE Stop: 09/26/18 13:29 Last Admin: 09/26/18 09:28 Dose: 25 mls/hr Lactobacillus Rhamnosus (Culturelle) 1 cap PO BID [facility] Last Admin: 09/26/18 09:29 Dose: 1 cap Loperamide HCl (Imodium) 2 mg PO Q4H PRN PRN Reason: Diarrhea Last Admin: 09/26/18 01:01 Dose: 2 mg Nicotine (Habitrol) 21 mg TRDERM DAILY [facility] Last Admin: 09/26/18 09:29 Dose: 21 mg Ondansetron HCl (Zofran Odt) 4 mg PO Q6H PRN PRN Reason: Nausea able to take PO Ondansetron HCl (Zofran) 4 mg IV Q6H PRN PRN Reason: Nausea/Vomiting Oxycodone HCl (Oxycodone) 5 mg PO Q4H PRN PRN Reason: Pain Last Admin: 09/26/18 04:19 Dose: 5 mg Pantoprazole Sodium (Protonix) 40 mg PO DAILY@0730 [facility] Last Admin: 09/26/18 09:29 Dose: 40 mg Prednisone (Prednisone) 40 mg PO WITHBREAKFAST [facility] Last Admin: 09/26/18 09:29 Dose: 40 mg Sodium Chloride (Saline Flush) 10 ml FLUSH ASDIRECTED PRN PRN Reason: Keep Vein Open Last Admin: 09/18/18 14:07 Dose: 10 ml Discontinued Medications Acetaminophen (Tylenol Bulk Bottle) 650 mg PO Q4H PRN PRN Reason: Pain Albuterol (Proventil Neb Soln) 2.5 mg NEB ONETIME ONE Stop: 09/18/18 13:51 Last Admin: 09/18/18 14:08 Dose: 2.5 mg Albuterol/Ipratropium (Duoneb 3.0-0.5 Mg/3 Ml) 3 ml NEB ONETIME ONE Stop: 09/18/18 13:26 Last Admin: 09/18/18 14:09 Dose: 3 ml Furosemide (Lasix) 40 mg IVPUSH NOW ONE Stop: 09/18/18 16:46 Last Admin: 09/18/18 17:04 Dose: Not Given Furosemide (Lasix) 40 mg IVPUSH ONETIME ONE Stop: 09/21/18 09:56 Last Admin: 09/21/18 09:51 Dose: 40 mg Furosemide (Lasix) 20 mg IVPUSH ONETIME ONE Stop: 09/21/18 21:01 Last Admin: 09/21/18 20:23 Dose: 20 mg Furosemide (Lasix) 20 mg IVPUSH NOW ONE Stop: 09/22/18 10:16 Last Admin: 09/22/18 11:10 Dose: 20 mg Furosemide (Lasix) 20 mg IVPUSH NOW ONE Stop: 09/23/18 10:15 Last Admin: 09/23/18 10:51 Dose: 20 mg Furosemide (Lasix) 20 mg IVPUSH NOW ONE Stop: 09/24/18 10:16 Last Admin: 09/24/18 10:55 Dose: 20 mg Furosemide (Lasix) 20 mg IVPUSH NOW ONE Stop: 09/25/18 14:46 Last Admin: 09/25/18 16:05 Dose: 20 mg Furosemide (Lasix) 20 mg IVPUSH NOW ONE Stop: 09/26/18 08:22 Last Admin: 09/26/18 10:37 Dose: 20 mg Furosemide (Lasix) Confirm Administered Dose 20 mg .ROUTE .STK-MED ONE Stop: 09/26/18 10:36 Sodium Chloride (Normal Saline) 250 mls @ 500 mls/hr IV ASDIRECTED [facility] Last Admin: 09/18/18 14:47 Dose: 500 mls/hr Heparin Sodium (Porcine) 5,000 (units/ Sodium Chloride) 501 mls @ 5 mls/hr IV ASDIRECTED [facility] Last Admin: 09/18/18 15:50 Dose: 5 mls/hr Ceftriaxone Sodium 2 gm/ (Sodium Chloride) 50 mls @ 100 mls/hr IV Q24H [facility] Propofol (Diprivan 100 Ml) 100 mls @ 32.382 mls/hr IV TITRATE [facility]; Protocol Last Admin: 09/25/18 05:11 Dose: 25 mcg/kg/min, 26.985 mls/hr Sodium Chloride (Normal Saline) 1,000 mls @ 25 mls/hr IV ASDIRECTED [facility] Last Admin: 09/19/18 14:34 Dose: 25 mls/hr Piperacillin/Tazobactam/ (Dextrose 3.375 gm/ Premix) 50 mls @ 100 mls/hr IV Q6H [facility] Last Admin: 09/25/18 12:48 Dose: 100 mls/hr Sodium Chloride (Normal Saline) 1,000 mls @ 999 mls/hr IV ASDIRECTED [facility] Stop: 09/18/18 18:01 Last Admin: 09/18/18 18:42 Dose: 999 mls/hr Sodium Chloride (Normal Saline) 1,000 mls @ 999 mls/hr IV ASDIRECTED [facility] Stop: 09/18/18 18:16 Last Admin: 09/18/18 17:46 Dose: 999 mls/hr Sodium Chloride (Normal Saline) 1,000 mls @ 999 mls/hr IV ASDIRECTED [facility] Stop: 09/18/18 20:20 Vancomycin HCl 2 gm/ Sodium (Chloride) 250 mls @ 150 mls/hr IV Q12H [facility] Vancomycin HCl 1.5 gm/ Sodium (Chloride) 250 mls @ 150 mls/hr IV Q12H [facility] Last Admin: 09/22/18 21:26 Dose: 150 mls/hr Vancomycin HCl 2 gm/ Sodium (Chloride) 500 mls @ 250 mls/hr IV Q12H [facility] Last Admin: 09/18/18 18:57 Dose: 250 mls/hr Sodium Chloride (Normal Saline) 1,000 mls @ 100 mls/hr IV ASDIRECTED [facility] Last Admin: 09/20/18 20:23 Dose: 100 mls/hr Sodium Chloride (Normal Saline) 500 mls @ 500 mls/hr IV ASDIRECTED [facility] Stop: 09/19/18 10:16 Sodium Chloride (Normal Saline) 1,000 mls @ 12.5 mls/hr IV ASDIRECTED [facility] Last Admin: 09/21/18 15:48 Dose: 12.5 mls/hr Sodium Chloride (Normal Saline) 1,000 mls @ 12.5 mls/hr IV ASDIRECTED [facility] Last Admin: 09/23/18 01:10 Dose: 12.5 mls/hr Vancomycin HCl 1.25 gm/ Sodium (Chloride) 250 mls @ 167 mls/hr IV Q12H [facility] Last Admin: 09/25/18 10:31 Dose: 167 mls/hr Magnesium Sulfate 2 gm/ Premix 50 mls @ 25 mls/hr IV ONETIME ONE Stop: 09/24/18 10:59 Last Admin: 09/24/18 09:25 Dose: 25 mls/hr Potassium Chloride 20 meq/ (Premix) 100 mls @ 50 mls/hr IV Q2H [facility] Stop: 09/24/18 12:59 Last Admin: 09/24/18 11:57 Dose: 50 mls/hr Propofol (Diprivan 100 Ml) 100 mls @ as directed IV .STK-MED ONE Stop: 09/25/18 08:53 Lidocaine HCl (Xylocaine 2% Viscous) Confirm Administered Dose 15 ml .ROUTE .STK -MED ONE Stop: 09/23/18 06:46 Lidocaine HCl (Xylocaine 4% Top Soln) Confirm Administered Dose 50 ml .ROUTE .STK-MED ONE Stop: 09/23/18 06:46 Lidocaine HCl (Xylocaine 2% Viscous) Confirm Administered Dose 15 ml .ROUTE .STK -MED ONE Stop: 09/24/18 06:48 Last Admin: 09/24/18 07:25 Dose: 15 ml Lidocaine HCl (Xylocaine 4% Top Soln) Confirm Administered Dose 50 ml .ROUTE .STK-MED ONE Stop: 09/24/18 06:48 Last Admin: 09/24/18 07:49 Dose: 6 ml Methylprednisolone Sodium Succinate (Solu-Medrol) 125 mg IVPUSH ONETIME ONE Stop: 09/18/18 15:07 Last Admin: 09/18/18 15:50 Dose: 125 mg Methylprednisolone Sodium Succinate (Solu-Medrol) 62.5 mg IVPUSH Q8H [facility] Last Admin: 09/21/18 08:19 Dose: 62.5 mg Methylprednisolone Sodium Succinate (Solu-Medrol) 40 mg IV Q8H [facility] Last Admin: 09/22/18 08:03 Dose: 40 mg Methylprednisolone Sodium Succinate (Solu-Medrol) 40 mg IV Q12H [facility] Last Admin: 09/25/18 10:30 Dose: 40 mg Midazolam HCl (Versed 1 Mg/Ml) 4 mg IVPUSH ONETIME ONE Stop: 09/18/18 16:53 Last Admin: 09/18/18 16:59 Dose: 4 mg Midazolam HCl (Versed 1 Mg/Ml) 2 mg IVPUSH ASDIRECTED ONE Stop: 09/18/18 16:54 Last Admin: 09/19/18 14:30 Dose: Not Given Midazolam HCl (Versed 1 Mg/Ml) Confirm Administered Dose 4 mg .ROUTE .STK-MED ONE Stop: 09/18/18 16:54 Last Admin: 09/18/18 17:02 Dose: Not Given Midazolam HCl (Versed 1 Mg/Ml) 2 mg IVPUSH Q1H PRN PRN Reason: Agitation Last Admin: 09/20/18 23:41 Dose: 2 mg Midazolam HCl (Versed 1 Mg/Ml) 5 mg IVPUSH ONETIME ONE Stop: 09/23/18 06:40 Last Admin: 09/23/18 07:30 Dose: 5 mg Midazolam HCl (Versed 1 Mg/Ml) Confirm Administered Dose 5 mg .ROUTE .STK-MED ONE Stop: 09/23/18 07:23 Last Admin: 09/23/18 08:24 Dose: Not Given Midazolam HCl (Versed 1 Mg/Ml) 5 mg IV ASDIRECTED PRN PRN Reason: SEDATION FOR BRONCHOSCOPY Stop: 09/24/18 08:30 Last Admin: 09/24/18 07:12 Dose: 5 mg Morphine Sulfate (Morphine) 4 mg IV Q2H PRN PRN Reason: SEVERE PAIN (7-10) Last Admin: 09/24/18 02:24 Dose: 4 mg Nicotine (Habitrol) 21 mg TRDERM ONETIME ONE Stop: 09/20/18 16:54 Last Admin: 09/20/18 17:41 Dose: 21 mg Pantoprazole Sodium (Protonix Iv) 40 mg IV Q24H [facility] Last Admin: 09/24/18 17:29 Dose: 40 mg Potassium Chloride (Klor-Con M20) 40 meq PO ONETIME ONE Stop: 09/26/18 08:31 Last Admin: 09/26/18 09:28 Dose: 40 meq Propofol (Diprivan 20 Ml) Confirm Administered Dose 200 mg .ROUTE .STK-MED ONE Stop: 09/18/18 15:04 Succinylcholine Chloride (Quelicin) Confirm Administered Dose 200 mg .ROUTE .STK -MED ONE Stop: 09/18/18 15:04 Vancomycin HCl (Vancomycin) Confirm Administered Dose 2 gm .ROUTE .STK-MED ONE Stop: 09/18/18 18:40 Last Admin: 09/18/18 18:55 Dose: Not Given - Exam Quality Assessment: Supplemental Oxygen, Central Line/PICC, Urine Catheter, DVT Prophylaxis General: Alert, Oriented, Cooperative, Mild Distress Lungs: Normal Respiratory Effort, Wheezing. No: Crackles, Rales, Rhonchi Cardiovascular: Regular Rate, Regular Rhythm, No Murmurs GI/Abdominal Exam: Soft, Non-Tender, No Organomegaly, No Distention Extremities: Non-Tender, Pedal Edema - Problem List Review Problem List Initiated/Reviewed/Updated: Yes - My Orders Last 24 Hours: My Active Orders 09/25/18 14:20 Loperamide [Imodium] 2 mg PO Q4H PRN 09/25/18 14:27 oxyCODONE 5 mg PO Q4H PRN 09/25/18 14:28 BIPAP Adult [RT BiPAP/CPAP] [RC] ASDIRECTED 09/25/18 14:30 Lactobacillus Rhamnosus GG [Culturelle] 1 cap PO BID Convert IV to Saline Lock [OM.PC] Routine 09/25/18 15:07 Consult to Physical Therapy [PT Evaluation and Treatment] [CONS] Routine 09/25/18 Lunch Regular Diet [DIET] 09/26/18 04:02 Acetaminophen [Tylenol] 650 mg PO Q4H PRN 09/26/18 07:30 Pantoprazole [ProTONIX] 40 mg PO DAILY@0730 09/26/18 08:00 predniSONE 40 mg PO WITHBREAKFAST 09/26/18 09:30 Potassium Chloride Riders [KCL 40 MEQ in Water 100 ML] 40 meq Premix Bag 1 bag IV ONETIME 09/26/18 10:39 Remove Sauceda Catheter [Urinary Catheter Removal] [RC] Per Unit Routine 09/27/18 05:00 Chest 1V Frontal [CR] Timed BASIC METABOLIC PANEL,BMP [CHEM] Timed CBC WITH AUTO DIFF [HEME] Timed MAGNESIUM [CHEM] Timed - Plan Plan:: ASSESSMENT AND PLAN - Bilateral pneumonia with sepsis -stable since extubation yesterday, now oxygenating well on nasal cannula 2 L/m. -Supplemental oxygen as needed -Discontinue levofloxacin -Prednisone 40 mg by mouth daily -Repeat furosemide today -Scheduled and as needed nebulizers -Chest x-ray in the morning Acute hypoxic and hypercapnic respiratory failure-secondary to pneumonia -Management as above COPD with acute exacerbation - History of tobacco dependence and patient is chronically on inhalers and nebulizers for management. Suspect pneumonia as the trigger as discussed above. -Management as above Diarrhea-clear secondary to antibiotics, no indication for C. difficile testing -Imodium as needed Tobacco dependence - Patient will need strong cessation recommendations once he is extubated. -Nicotine patch Morbid obesity - BMI greater than 50. Essential hypertension - normally on medications to lower blood pressure but blood pressure is significantly low at this time. Antihypertensive medications will remain on hold. Maintenance issues - - DVT prophylaxis - enoxaparin - GI prophylaxis - PPI - Nutrition - regular diet - Sauceda catheter - placed in the emergency room for strict intake and output monitoring Disposition - I would anticipate discharge home if he survives the hospital stay Primary care physician - Dr Sandra
[2018-09-27] MEDS: Acetaminophen 325 MG Tab PO PRN (02:30)
--- NOTE | 2018-09-27 05:26 | CRLCR ---
HISTORY: Follow-up infiltrate. COMPARISON: From yesterday FINDINGS: A portable erect AP view of the chest was obtained at 0455 hours. The previously seen mild platelike density in the left lung base has improved, consistent with clearing platelike atelectasis. There is slightly increased mild platelike density in the right mid-lower lung consistent with increasing platelike atelectasis. The rest of the chest remains clear. During the interval, the endotracheal tube has been removed. Again seen is a right PICC line in satisfactory position with its tip in the superior vena cava at the cavoatrial junction. The heart remains top-normal in size. The mediastinum is normal in appearance. The osseous structures are normal in appearance for the patient`s age. IMPRESSION: Continued improvement in patchy consolidation of the left lung base with near complete resolution of previously seen mild platelike atelectasis. Slight increase in mild platelike atelectasis in the right mid-lower lung. Dictated by George Lopez MD @ Sep 27 2018 5:21AM Signed by Dr. George Lopez @ Sep 27 2018 5:24AM
[2018-09-27] MEDS: Albuterol/Ipratropium 3.0-0.5 MG/3 ML Neb Soln NEB SCH ×4 (07:18→21:59)
[2018-09-27] MEDS: Acetylcysteine 20% 200 MG/ML 4 ML Nebulizer Soln SDV INH SCH ×2 (07:18→21:58)
[2018-09-27] MEDS: Pantoprazole 40 MG Tab.CR PO SCH (07:49)
[2018-09-27] MEDS: Nicotine 21 MG/24 Hr Patch TRDERM SCH (08:59)
[2018-09-27] MEDS: predniSONE 20 MG Tab PO SCH (08:59)
[2018-09-27] MEDS: Enoxaparin 40 MG/0.4 ML Syringe SUBCUT SCH (08:59)
[2018-09-27] MEDS ORDERED: Potassium Chloride 20 MEQ Tab.ER PO ONE ×2 (09:00→17:00)
[2018-09-27] MEDS: Lactobacillus Rhamnosus GG (Probiotic) Cap PO SCH ×2 (09:34→21:58)
[2018-09-27] MEDS ORDERED: Diltiazem 25 MG/5 ML SDV IVPUSH ONE (10:00)
[2018-09-27] MEDS ORDERED: DILTIAZEM IV SCH (10:00)
[2018-09-27] MEDS ORDERED: SODIUM CHLORIDE 0.9% IV SCH (10:00)
[2018-09-27] MEDS ORDERED: Diltiazem 125 MG in Sodium Chloride 0.9% 100 ML IV SCH (10:00)
[2018-09-27] MEDS ORDERED: Furosemide 40 MG/4 ML VIAL IVPUSH ONE (10:36)
[2018-09-27] MEDS ORDERED: Zolpidem 5 MG Tab PO PRN (10:39)
[2018-09-27] MEDS ORDERED: Calcium Carbonate 500 MG Tab.Chew PO PRN (10:39)
--- NOTE | 2018-09-27 10:46 | PCM.PN ---
- General Info Date of Service: 09/27/18 Subjective Update: Mr. Hoskins has done well since yesterday, until this morning. Now has developed atrial fibrillation with rapid ventricular response. He's been asymptomatic with this but heart rates have been in the 150-180 range. He has been started on continuous infusion of IV diltiazem following a diltiazem bolus. Respiratory status has been stable since yesterday and he has remained afebrile. Functional Status: Reports: Pain Controlled, Tolerating Diet, Urinating - Review of Systems General: Reports: Weakness. Denies: Fever, Chills Pulmonary: Reports: Shortness of Breath, Wheezing. Denies: Pleuritic Chest Pain , Cough, Sputum, Hemoptysis Cardiovascular: Reports: Dyspnea on Exertion, Edema. Denies: Chest Pain, Palpitations, Orthopnea, PND Gastrointestinal: Reports: No Symptoms - Patient Data Vitals - Most Recent: Last Vital Signs Temp 97.3 F 09/27/18 09:56 Pulse 170 H 09/27/18 10:32 Resp 22 H 09/27/18 10:32 BP 121/78 09/27/18 10:32 Pulse Ox 90 L 09/27/18 10:32 Weight - Most Recent: 396 lb 9.785 oz I&O - Last 24 Hours: Intake & Output 09/26/18 09/27/18 09/27/18 22:59 06:59 14:59 Intake Total 2000 1070 Output Total 1600 300 200 Balance 400 770 -200 Lab Results Last 24 Hours: Laboratory Results - last 24 hr 09/27/18 09/27/18 Range/Units 05:50 05:50 WBC 17.2 H (4.5-11.0) K/uL RBC 4.27 L (4.30-5.90) M/uL Hgb 11.6 L (12.0-15.0) g/dL Hct 36.7 L (40.0-54.0) % MCV 86 (80-98) fL MCH 27 (27-31) pg MCHC 32 (32-36) % Plt Count 272 (150-400) K/uL Neut % (Auto) [place] Lymph % (Auto) [place] % (Auto) [place] Eos % (Auto) [place] Baso % (Auto) [place] Add Manual Diff Yes Neutrophils % (Manual) 70 H (36-66) % Band Neutrophils % 4 L (5-11) % Lymphocytes % (Manual) 11 L (24-44) % Monocytes % (Manual) 13 H (2-6) % Eosinophils % (Manual) 1 L (2-4) % Basophils % (Manual) 0 (0-1) % Sodium 141 (140-148) mmol/L Potassium 3.4 L (3.6-5.2) mmol/L Chloride 102 (100-108) mmol/L Carbon Dioxide 31 (21-32) mmol/L Anion Gap 11.4 (5.0-14.0) mmol/L BUN 39 H (7-18) mg/dL Creatinine 1.4 H (0.8-1.3) mg/dL Est Cr Clr Drug Dosing 60.90 mL/min Estimated GFR (MDRD) 52 L (>60) Glucose 131 H (74-106) mg/dL Calcium 9.0 (8.5-10.1) mg/dL Magnesium 1.9 (1.8-2.4) mg/dL Petey Results Last 24 Hours: Microbiology 09/24/18 07:26 Gram Stain - Final Bronchial Washings - Mixed Respiratory Culture - Final NO GROWTH AFTER 2 DAYS 09/23/18 07:25 Gram Stain - Final Tracheal Aspirate Respiratory Culture - Final Staph Hominis Ss Hominis 09/23/18 07:25 JUDY Preparation - Final Other - Trachea Med Orders - Current: Current Medications Acetaminophen (Tylenol) 650 mg RECTAL Q4H PRN PRN Reason: Mild pain/fever Last Admin: 09/19/18 04:57 Dose: 650 mg Acetaminophen (Tylenol) 650 mg PO Q4H PRN PRN Reason: Pain Last Admin: 09/27/18 02:30 Dose: 650 mg Acetylcysteine (Mucomyst 20%) 400 mg INH BIDRT [facility] Last Admin: 09/27/18 07:18 Dose: 400 mg Albuterol (Proventil Neb Soln) 2.5 mg NEB Q2H PRN PRN Reason: Shortness Of Breath/wheezing Last Admin: 09/19/18 23:53 Dose: 2.5 mg Albuterol/Ipratropium (Duoneb 3.0-0.5 Mg/3 Ml) 3 ml NEB QIDRT [facility] Last Admin: 09/27/18 10:28 Dose: 3 ml Calcium Carbonate/Glycine (Tums) 1,000 mg PO Q2HR PRN PRN Reason: Indigestion Dimethicone/Zinc Oxide (Rash Relief-Zinc Oxide [place]) 0 gm TOP ASDIRECTED PRN PRN Reason: rash Last Admin: 09/25/18 15:52 Dose: 3 spray Enoxaparin Sodium (Lovenox) 40 mg SUBCUT DAILY [facility] Last Admin: 09/27/18 08:59 Dose: 40 mg Diltiazem HCl 125 mg/ Sodium (Chloride) 125 mls @ 5 mls/hr IV TITRATE [facility]; Protocol Last Admin: 09/27/18 09:50 Dose: 5 mg/hr, 5 mls/hr Lactobacillus Rhamnosus (Culturelle) 1 cap PO BID [facility] Last Admin: 09/27/18 09:34 Dose: 1 cap Loperamide HCl (Imodium) 2 mg PO Q4H PRN PRN Reason: Diarrhea Last Admin: 09/26/18 14:46 Dose: 2 mg Nicotine (Habitrol) 21 mg TRDERM DAILY [facility] Last Admin: 09/27/18 08:59 Dose: 21 mg Ondansetron HCl (Zofran Odt) 4 mg PO Q6H PRN PRN Reason: Nausea able to take PO Ondansetron HCl (Zofran) 4 mg IV Q6H PRN PRN Reason: Nausea/Vomiting Pantoprazole Sodium (Protonix) 40 mg PO DAILY@0730 [facility] Last Admin: 09/27/18 07:49 Dose: 40 mg Potassium Chloride (Klor-Con M20) 40 meq PO ONETIME ONE Stop: 09/27/18 17:01 Sodium Chloride (Saline Flush) 10 ml FLUSH ASDIRECTED PRN PRN Reason: Keep Vein Open Last Admin: 09/18/18 14:07 Dose: 10 ml Zolpidem Tartrate (Ambien) 5 mg PO BEDTIME PRN PRN Reason: Insomnia Discontinued Medications Acetaminophen (Tylenol Bulk Bottle) 650 mg PO Q4H PRN PRN Reason: Pain Albuterol (Proventil Neb Soln) 2.5 mg NEB ONETIME ONE Stop: 09/18/18 13:51 Last Admin: 09/18/18 14:08 Dose: 2.5 mg Albuterol/Ipratropium (Duoneb 3.0-0.5 Mg/3 Ml) 3 ml NEB ONETIME ONE Stop: 09/18/18 13:26 Last Admin: 09/18/18 14:09 Dose: 3 ml Diltiazem HCl (Diltiazem) 20 mg IVPUSH ONETIME ONE Stop: 09/27/18 10:01 Last Admin: 09/27/18 09:48 Dose: 20 mg Furosemide (Lasix) 40 mg IVPUSH NOW ONE Stop: 09/18/18 16:46 Last Admin: 09/18/18 17:04 Dose: Not Given Furosemide (Lasix) 40 mg IVPUSH ONETIME ONE Stop: 09/21/18 09:56 Last Admin: 09/21/18 09:51 Dose: 40 mg Furosemide (Lasix) 20 mg IVPUSH ONETIME ONE Stop: 09/21/18 21:01 Last Admin: 09/21/18 20:23 Dose: 20 mg Furosemide (Lasix) 20 mg IVPUSH NOW ONE Stop: 09/22/18 10:16 Last Admin: 09/22/18 11:10 Dose: 20 mg Furosemide (Lasix) 20 mg IVPUSH NOW ONE Stop: 09/23/18 10:15 Last Admin: 09/23/18 10:51 Dose: 20 mg Furosemide (Lasix) 20 mg IVPUSH NOW ONE Stop: 09/24/18 10:16 Last Admin: 09/24/18 10:55 Dose: 20 mg Furosemide (Lasix) 20 mg IVPUSH NOW ONE Stop: 09/25/18 14:46 Last Admin: 09/25/18 16:05 Dose: 20 mg Furosemide (Lasix) 20 mg IVPUSH NOW ONE Stop: 09/26/18 08:22 Last Admin: 09/26/18 10:37 Dose: 20 mg Furosemide (Lasix) Confirm Administered Dose 20 mg .ROUTE .STK-MED ONE Stop: 09/26/18 10:36 Last Admin: 09/26/18 10:41 Dose: Not Given Furosemide (Lasix) 40 mg IVPUSH NOW ONE Stop: 09/27/18 10:37 Sodium Chloride (Normal Saline) 250 mls @ 500 mls/hr IV ASDIRECTED [facility] Last Admin: 09/18/18 14:47 Dose: 500 mls/hr Heparin Sodium (Porcine) 5,000 (units/ Sodium Chloride) 501 mls @ 5 mls/hr IV ASDIRECTED [facility] Last Admin: 09/18/18 15:50 Dose: 5 mls/hr Ceftriaxone Sodium 2 gm/ (Sodium Chloride) 50 mls @ 100 mls/hr IV Q24H [facility] Levofloxacin/Dextrose 750 mg/ (Premix) 150 mls @ 100 mls/hr IV Q24H [facility] Last Admin: 09/25/18 16:39 Dose: 100 mls/hr Propofol (Diprivan 100 Ml) 100 mls @ 32.382 mls/hr IV TITRATE [facility]; Protocol Last Admin: 09/25/18 05:11 Dose: 25 mcg/kg/min, 26.985 mls/hr Sodium Chloride (Normal Saline) 1,000 mls @ 25 mls/hr IV ASDIRECTED [facility] Last Admin: 09/19/18 14:34 Dose: 25 mls/hr Piperacillin/Tazobactam/ (Dextrose 3.375 gm/ Premix) 50 mls @ 100 mls/hr IV Q6H [facility] Last Admin: 09/25/18 12:48 Dose: 100 mls/hr Sodium Chloride (Normal Saline) 1,000 mls @ 999 mls/hr IV ASDIRECTED [facility] Stop: 09/18/18 18:01 Last Admin: 09/18/18 18:42 Dose: 999 mls/hr Sodium Chloride (Normal Saline) 1,000 mls @ 999 mls/hr IV ASDIRECTED [facility] Stop: 09/18/18 18:16 Last Admin: 09/18/18 17:46 Dose: 999 mls/hr Sodium Chloride (Normal Saline) 1,000 mls @ 999 mls/hr IV ASDIRECTED [facility] Stop: 09/18/18 20:20 Vancomycin HCl 2 gm/ Sodium (Chloride) 250 mls @ 150 mls/hr IV Q12H [facility] Vancomycin HCl 1.5 gm/ Sodium (Chloride) 250 mls @ 150 mls/hr IV Q12H [facility] Last Admin: 09/22/18 21:26 Dose: 150 mls/hr Vancomycin HCl 2 gm/ Sodium (Chloride) 500 mls @ 250 mls/hr IV Q12H [facility] Last Admin: 09/18/18 18:57 Dose: 250 mls/hr Sodium Chloride (Normal Saline) 1,000 mls @ 100 mls/hr IV ASDIRECTED [facility] Last Admin: 09/20/18 20:23 Dose: 100 mls/hr Sodium Chloride (Normal Saline) 500 mls @ 500 mls/hr IV ASDIRECTED [facility] Stop: 09/19/18 10:16 Sodium Chloride (Normal Saline) 1,000 mls @ 12.5 mls/hr IV ASDIRECTED [facility] Last Admin: 09/21/18 15:48 Dose: 12.5 mls/hr Sodium Chloride (Normal Saline) 1,000 mls @ 12.5 mls/hr IV ASDIRECTED [facility] Last Admin: 09/23/18 01:10 Dose: 12.5 mls/hr Vancomycin HCl 1.25 gm/ Sodium (Chloride) 250 mls @ 167 mls/hr IV Q12H [facility] Last Admin: 09/25/18 10:31 Dose: 167 mls/hr Magnesium Sulfate 2 gm/ Premix 50 mls @ 25 mls/hr IV ONETIME ONE Stop: 09/24/18 10:59 Last Admin: 09/24/18 09:25 Dose: 25 mls/hr Potassium Chloride 20 meq/ (Premix) 100 mls @ 50 mls/hr IV Q2H [facility] Stop: 09/24/18 12:59 Last Admin: 09/24/18 11:57 Dose: 50 mls/hr Potassium Chloride 40 meq/ (Premix) 100 mls @ 25 mls/hr IV ONETIME ONE Stop: 09/26/18 13:29 Last Admin: 09/26/18 09:28 Dose: 25 mls/hr Propofol (Diprivan 100 Ml) 100 mls @ as directed IV .STK-MED ONE Stop: 09/25/18 08:53 Lidocaine HCl (Xylocaine 2% Viscous) Confirm Administered Dose 15 ml .ROUTE .STK -MED ONE Stop: 09/23/18 06:46 Lidocaine HCl (Xylocaine 4% Top Soln) Confirm Administered Dose 50 ml .ROUTE .STK-MED ONE Stop: 09/23/18 06:46 Lidocaine HCl (Xylocaine 2% Viscous) Confirm Administered Dose 15 ml .ROUTE .STK -MED ONE Stop: 09/24/18 06:48 Last Admin: 09/24/18 07:25 Dose: 15 ml Lidocaine HCl (Xylocaine 4% Top Soln) Confirm Administered Dose 50 ml .ROUTE .STK-MED ONE Stop: 09/24/18 06:48 Last Admin: 09/24/18 07:49 Dose: 6 ml Methylprednisolone Sodium Succinate (Solu-Medrol) 125 mg IVPUSH ONETIME ONE Stop: 09/18/18 15:07 Last Admin: 09/18/18 15:50 Dose: 125 mg Methylprednisolone Sodium Succinate (Solu-Medrol) 62.5 mg IVPUSH Q8H [facility] Last Admin: 09/21/18 08:19 Dose: 62.5 mg Methylprednisolone Sodium Succinate (Solu-Medrol) 40 mg IV Q8H [facility] Last Admin: 09/22/18 08:03 Dose: 40 mg Methylprednisolone Sodium Succinate (Solu-Medrol) 40 mg IV Q12H [facility] Last Admin: 09/25/18 10:30 Dose: 40 mg Midazolam HCl (Versed 1 Mg/Ml) 4 mg IVPUSH ONETIME ONE Stop: 09/18/18 16:53 Last Admin: 09/18/18 16:59 Dose: 4 mg Midazolam HCl (Versed 1 Mg/Ml) 2 mg IVPUSH ASDIRECTED ONE Stop: 09/18/18 16:54 Last Admin: 09/19/18 14:30 Dose: Not Given Midazolam HCl (Versed 1 Mg/Ml) Confirm Administered Dose 4 mg .ROUTE .STK-MED ONE Stop: 09/18/18 16:54 Last Admin: 09/18/18 17:02 Dose: Not Given Midazolam HCl (Versed 1 Mg/Ml) 2 mg IVPUSH Q1H PRN PRN Reason: Agitation Last Admin: 09/20/18 23:41 Dose: 2 mg Midazolam HCl (Versed 1 Mg/Ml) 5 mg IVPUSH ONETIME ONE Stop: 09/23/18 06:40 Last Admin: 09/23/18 07:30 Dose: 5 mg Midazolam HCl (Versed 1 Mg/Ml) Confirm Administered Dose 5 mg .ROUTE .STK-MED ONE Stop: 09/23/18 07:23 Last Admin: 09/23/18 08:24 Dose: Not Given Midazolam HCl (Versed 1 Mg/Ml) 5 mg IV ASDIRECTED PRN PRN Reason: SEDATION FOR BRONCHOSCOPY Stop: 09/24/18 08:30 Last Admin: 09/24/18 07:12 Dose: 5 mg Morphine Sulfate (Morphine) 4 mg IV Q2H PRN PRN Reason: SEVERE PAIN (7-10) Last Admin: 09/24/18 02:24 Dose: 4 mg Nicotine (Habitrol) 21 mg TRDERM ONETIME ONE Stop: 09/20/18 16:54 Last Admin: 09/20/18 17:41 Dose: 21 mg Oxycodone HCl (Oxycodone) 5 mg PO Q4H PRN PRN Reason: Pain Last Admin: 09/26/18 04:19 Dose: 5 mg Pantoprazole Sodium (Protonix Iv) 40 mg IV Q24H [facility] Last Admin: 09/24/18 17:29 Dose: 40 mg Potassium Chloride (Klor-Con M20) 40 meq PO ONETIME ONE Stop: 09/26/18 08:31 Last Admin: 09/26/18 09:28 Dose: 40 meq Potassium Chloride (Klor-Con M20) 40 meq PO ONETIME ONE Stop: 09/27/18 09:01 Last Admin: 09/27/18 09:34 Dose: 40 meq Prednisone (Prednisone) 40 mg PO WITHBREAKFAST [facility] Last Admin: 09/27/18 08:59 Dose: 40 mg Propofol (Diprivan 20 Ml) Confirm Administered Dose 200 mg .ROUTE .STK-MED ONE Stop: 09/18/18 15:04 Succinylcholine Chloride (Quelicin) Confirm Administered Dose 200 mg .ROUTE .STK -MED ONE Stop: 09/18/18 15:04 Vancomycin HCl (Vancomycin) Confirm Administered Dose 2 gm .ROUTE .STK-MED ONE Stop: 09/18/18 18:40 Last Admin: 09/18/18 18:55 Dose: Not Given - Exam Quality Assessment: Supplemental Oxygen, Central Line/PICC, DVT Prophylaxis General: Alert, Oriented, Cooperative, Mild Distress Lungs: Decreased Breath Sounds, Wheezing. No: Crackles, Rales, Rhonchi Cardiovascular: Regular Rate, Regular Rhythm, No Murmurs GI/Abdominal Exam: Soft, Non-Tender, No Organomegaly, No Distention Back Exam: Normal Inspection, Full Range of Motion Extremities: Non-Tender, Pedal Edema - Problem List Review Problem List Initiated/Reviewed/Updated: Yes - My Orders Last 24 Hours: My Active Orders 09/27/18 10:00 Diltiazem 125 mg Sodium Chloride 0.9% [Normal Saline] 100 ml IV TITRATE 09/27/18 10:39 Calcium Carbonate [Tums] 1,000 mg PO Q2HR PRN Zolpidem [Ambien] 5 mg PO BEDTIME PRN 09/27/18 17:00 Potassium Chloride [Klor-Con M20] 40 meq PO ONETIME ONE 09/28/18 05:00 BASIC METABOLIC PANEL,BMP [CHEM] Timed CBC WITH AUTO DIFF [HEME] Timed MAGNESIUM [CHEM] Timed - Plan Plan:: ASSESSMENT AND PLAN - Bilateral pneumonia with sepsis -stable since extubation, now oxygenating well on nasal cannula 2 L/m. -Supplemental oxygen as needed -Repeat furosemide today -Scheduled and as needed nebulizers -Chest x-ray in the morning Atrial fibrillation with rapid ventricular response-abrupt onset this morning, heart rates in the 150-180 range, currently asymptomatic. -Diltiazem 20 mg IV bolus given -Continuous infusion of diltiazem Acute hypoxic and hypercapnic respiratory failure-secondary to pneumonia -Management as above COPD with acute exacerbation - History of tobacco dependence and patient is chronically on inhalers and nebulizers for management. Suspect pneumonia as the trigger as discussed above. -Management as above Diarrhea-likely secondary to antibiotics, no indication for C. difficile testing -Imodium as needed -Probiotic twice daily Tobacco dependence - Patient will need strong cessation recommendations once he is extubated. -Nicotine patch Morbid obesity - BMI greater than 50. Essential hypertension - normally on medications to lower blood pressure but blood pressure is significantly low at this time. Antihypertensive medications will remain on hold. Maintenance issues - - DVT prophylaxis - enoxaparin - GI prophylaxis - PPI - Nutrition - regular diet - Sau[place]a catheter - placed in the emergency room for strict intake and output monitoring Disposition - I would anticipate discharge home versus retirement, dependent on overall strength and ability to transfer as well as ambulate Primary care physician - Dr Sandra
[2018-09-27] MEDS ORDERED: Esmolol/Normal Saline 2.5 GM/250 ML BAG IV SCH (14:00)
[2018-09-28] MEDS: Acetaminophen 325 MG Tab PO PRN ×2 (00:24→20:54)
[2018-09-28] MEDS: Albuterol/Ipratropium 3.0-0.5 MG/3 ML Neb Soln NEB SCH ×4 (07:11→21:30)
[2018-09-28] MEDS: Acetylcysteine 20% 200 MG/ML 4 ML Nebulizer Soln SDV INH SCH ×2 (07:11→21:30)
[2018-09-28] MEDS ORDERED: Furosemide 40 MG/4 ML VIAL IVPUSH ONE (08:31)
[2018-09-28] MEDS ORDERED: Potassium Chloride 20 MEQ Tab.ER PO ONE ×2 (09:00→17:00)
[2018-09-28] MEDS: Lactobacillus Rhamnosus GG (Probiotic) Cap PO SCH ×2 (09:11→20:54)
[2018-09-28] MEDS: Nicotine 21 MG/24 Hr Patch TRDERM SCH (09:11)
[2018-09-28] MEDS: Enoxaparin 40 MG/0.4 ML Syringe SUBCUT SCH (09:12)
[2018-09-28] MEDS: Pantoprazole 40 MG Tab.CR PO SCH (09:15)
--- NOTE | 2018-09-28 09:34 | PCM.PN ---
- General Info Date of Service: 09/28/18 Subjective Update: Mr. Hoskins has done well since yesterday, he spontaneously converted to sinus rhythm yesterday afternoon and has remained in sinus rhythm since that time. He reports that he slept fairly well and denies significant shortness of breath or other discomfort. Vital signs have been stable overnight and he has remained afebrile. - Review of Systems General: Reports: Weakness. Denies: Fever, Chills Pulmonary: Reports: No Symptoms Cardiovascular: Reports: No Symptoms Gastrointestinal: Reports: No Symptoms - Patient Data Vitals - Most Recent: Last Vital Signs Temp 97.0 F 09/28/18 03:55 Pulse 102 H 09/28/18 07:11 Resp 23 H 09/28/18 06:25 BP 130/79 09/28/18 06:25 Pulse Ox 93 L 09/28/18 03:55 Weight - Most Recent: 396 lb 9.785 oz I&O - Last 24 Hours: Intake & Output 09/27/18 09/28/18 09/28/18 22:59 06:59 14:59 Intake Total 883 480 Output Total 300 Balance 583 480 Lab Results Last 24 Hours: Laboratory Results - last 24 hr 09/28/18 09/28/18 Range/Units 06:44 06:44 WBC 16.2 H (4.5-11.0) K/uL RBC 4.31 (4.30-5.90) M/uL Hgb 11.4 L (12.0-15.0) g/dL Hct 36.8 L (40.0-54.0) % MCV 85 (80-98) fL MCH 27 (27-31) pg MCHC 31 L (32-36) % Plt Count 285 (150-400) K/uL Add Manual Diff Yes Neutrophils % (Manual) 65 (36-66) % Band Neutrophils % 2 L (5-11) % Lymphocytes % (Manual) 18 L (24-44) % Monocytes % (Manual) 14 H (2-6) % Eosinophils % (Manual) 1 L (2-4) % Polychromasia Sodium 141 (140-148) mmol/L Potassium 3.8 (3.6-5.2) mmol/L Chloride 104 (100-108) mmol/L Carbon Dioxide 28 (21-32) mmol/L Anion Gap 8.9 (5.0-14.0) mmol/L BUN 39 H (7-18) mg/dL Creatinine 1.4 H (0.8-1.3) mg/dL Est Cr Clr Drug Dosing 60.90 mL/min Estimated GFR (MDRD) 52 L (>60) Glucose 113 H (74-106) mg/dL Calcium 9.0 (8.5-10.1) mg/dL Magnesium 1.8 (1.8-2.4) mg/dL Med Orders - Current: Current Medications Acetaminophen (Tylenol) 650 mg RECTAL Q4H PRN PRN Reason: Mild pain/fever Last Admin: 09/19/18 04:57 Dose: 650 mg Acetaminophen (Tylenol) 650 mg PO Q4H PRN PRN Reason: Pain Last Admin: 09/28/18 00:24 Dose: 650 mg Acetylcysteine (Mucomyst 20%) 400 mg INH BIDRT [facility] Last Admin: 09/28/18 07:11 Dose: 400 mg Albuterol (Proventil Neb Soln) 2.5 mg NEB Q2H PRN PRN Reason: Shortness Of Breath/wheezing Last Admin: 09/19/18 23:53 Dose: 2.5 mg Albuterol/Ipratropium (Duoneb 3.0-0.5 Mg/3 Ml) 3 ml NEB QIDRT [facility] Last Admin: 09/28/18 07:11 Dose: 3 ml Calcium Carbonate/Glycine (Tums) 1,000 mg PO Q2H PRN PRN Reason: Indigestion Dimethicone/Zinc Oxide (Rash Relief-Zinc Oxide Palmer) 0 gm TOP ASDIRECTED PRN PRN Reason: rash Last Admin: 09/25/18 15:52 Dose: 3 spray Enoxaparin Sodium (Lovenox) 40 mg SUBCUT DAILY [facility] Last Admin: 09/28/18 09:12 Dose: 40 mg Furosemide (Lasix) 80 mg PO ONETIME ONE Stop: 09/28/18 09:28 Diltiazem HCl 125 mg/ Sodium (Chloride) 125 mls @ 5 mls/hr IV TITRATE [facility]; Protocol Last Titration: 09/27/18 15:35 Dose: 5 mg/hr, 5 mls/hr Esmolol HCl (Esmolol Hcl In Sterile Water 2,500 Mg/250 Ml) 250 mls @ 53.97 mls/ hr IV TITRATE [facility]; Protocol Last Titration: 09/27/18 15:35 Dose: 25 mcg/kg/min, 26.985 mls/hr Lactobacillus Rhamnosus (Culturelle) 1 cap PO BID [facility] Last Admin: 09/28/18 09:11 Dose: 1 cap Loperamide HCl (Imodium) 2 mg PO Q4H PRN PRN Reason: Diarrhea Last Admin: 09/26/18 14:46 Dose: 2 mg Nicotine (Habitrol) 21 mg TRDERM DAILY [facility] Last Admin: 09/28/18 09:11 Dose: 21 mg Ondansetron HCl (Zofran Odt) 4 mg PO Q6H PRN PRN Reason: Nausea able to take PO Ondansetron HCl (Zofran) 4 mg IV Q6H PRN PRN Reason: Nausea/Vomiting Pantoprazole Sodium (Protonix) 40 mg PO DAILY@0730 [facility] Last Admin: 09/28/18 09:15 Dose: 40 mg Sodium Chloride (Saline Flush) 10 ml FLUSH ASDIRECTED PRN PRN Reason: Keep Vein Open Last Admin: 09/18/18 14:07 Dose: 10 ml Zolpidem Tartrate (Ambien) 5 mg PO BEDTIME PRN PRN Reason: Insomnia Last Admin: 09/28/18 00:45 Dose: 5 mg Discontinued Medications Acetaminophen (Tylenol Bulk Bottle) 650 mg PO Q4H PRN PRN Reason: Pain Albuterol (Proventil Neb Soln) 2.5 mg NEB ONETIME ONE Stop: 09/18/18 13:51 Last Admin: 09/18/18 14:08 Dose: 2.5 mg Albuterol/Ipratropium (Duoneb 3.0-0.5 Mg/3 Ml) 3 ml NEB ONETIME ONE Stop: 09/18/18 13:26 Last Admin: 09/18/18 14:09 Dose: 3 ml Diltiazem HCl (Diltiazem) 20 mg IVPUSH ONETIME ONE Stop: 09/27/18 10:01 Last Admin: 09/27/18 09:48 Dose: 20 mg Furosemide (Lasix) 40 mg IVPUSH NOW ONE Stop: 09/18/18 16:46 Last Admin: 09/18/18 17:04 Dose: Not Given Furosemide (Lasix) 40 mg IVPUSH ONETIME ONE Stop: 09/21/18 09:56 Last Admin: 09/21/18 09:51 Dose: 40 mg Furosemide (Lasix) 20 mg IVPUSH ONETIME ONE Stop: 09/21/18 21:01 Last Admin: 09/21/18 20:23 Dose: 20 mg Furosemide (Lasix) 20 mg IVPUSH NOW ONE Stop: 09/22/18 10:16 Last Admin: 09/22/18 11:10 Dose: 20 mg Furosemide (Lasix) 20 mg IVPUSH NOW ONE Stop: 09/23/18 10:15 Last Admin: 09/23/18 10:51 Dose: 20 mg Furosemide (Lasix) 20 mg IVPUSH NOW ONE Stop: 09/24/18 10:16 Last Admin: 09/24/18 10:55 Dose: 20 mg Furosemide (Lasix) 20 mg IVPUSH NOW ONE Stop: 09/25/18 14:46 Last Admin: 09/25/18 16:05 Dose: 20 mg Furosemide (Lasix) 20 mg IVPUSH NOW ONE Stop: 09/26/18 08:22 Last Admin: 09/26/18 10:37 Dose: 20 mg Furosemide (Lasix) Confirm Administered Dose 20 mg .ROUTE .[facility]-MED ONE Stop: 09/26/18 10:36 Last Admin: 09/26/18 10:41 Dose: Not Given Furosemide (Lasix) 40 mg IVPUSH NOW ONE Stop: 09/27/18 10:37 Last Admin: 09/27/18 11:38 Dose: 40 mg Furosemide (Lasix) 40 mg IVPUSH NOW ONE Stop: 09/28/18 08:32 Sodium Chloride (Normal Saline) 250 mls @ 500 mls/hr IV ASDIRECTED [facility] Last Admin: 09/18/18 14:47 Dose: 500 mls/hr Heparin Sodium (Porcine) 5,000 (units/ Sodium Chloride) 501 mls @ 5 mls/hr IV ASDIRECTED [facility] Last Admin: 09/18/18 15:50 Dose: 5 mls/hr Ceftriaxone Sodium 2 gm/ (Sodium Chloride) 50 mls @ 100 mls/hr IV Q24H [facility] Levofloxacin/Dextrose 750 mg/ (Premix) 150 mls @ 100 mls/hr IV Q24H [facility] Last Admin: 09/25/18 16:39 Dose: 100 mls/hr Propofol (Diprivan 100 Ml) 100 mls @ 32.382 mls/hr IV TITRATE [facility]; Protocol Last Admin: 09/25/18 05:11 Dose: 25 mcg/kg/min, 26.985 mls/hr Sodium Chloride (Normal Saline) 1,000 mls @ 25 mls/hr IV ASDIRECTED [facility] Last Admin: 09/19/18 14:34 Dose: 25 mls/hr Piperacillin/Tazobactam/ (Dextrose 3.375 gm/ Premix) 50 mls @ 100 mls/hr IV Q6H [facility] Last Admin: 09/25/18 12:48 Dose: 100 mls/hr Sodium Chloride (Normal Saline) 1,000 mls @ 999 mls/hr IV ASDIRECTED [facility] Stop: 09/18/18 18:01 Last Admin: 09/18/18 18:42 Dose: 999 mls/hr Sodium Chloride (Normal Saline) 1,000 mls @ 999 mls/hr IV ASDIRECTED [facility] Stop: 09/18/18 18:16 Last Admin: 09/18/18 17:46 Dose: 999 mls/hr Sodium Chloride (Normal Saline) 1,000 mls @ 999 mls/hr IV ASDIRECTED [facility] Stop: 09/18/18 20:20 Vancomycin HCl 2 gm/ Sodium (Chloride) 250 mls @ 150 mls/hr IV Q12H [facility] Vancomycin HCl 1.5 gm/ Sodium (Chloride) 250 mls @ 150 mls/hr IV Q12H [facility] Last Admin: 09/22/18 21:26 Dose: 150 mls/hr Vancomycin HCl 2 gm/ Sodium (Chloride) 500 mls @ 250 mls/hr IV Q12H [facility] Last Admin: 09/18/18 18:57 Dose: 250 mls/hr Sodium Chloride (Normal Saline) 1,000 mls @ 100 mls/hr IV ASDIRECTED [facility] Last Admin: 09/20/18 20:23 Dose: 100 mls/hr Sodium Chloride (Normal Saline) 500 mls @ 500 mls/hr IV ASDIRECTED [facility] Stop: 09/19/18 10:16 Sodium Chloride (Normal Saline) 1,000 mls @ 12.5 mls/hr IV ASDIRECTED [facility] Last Admin: 09/21/18 15:48 Dose: 12.5 mls/hr Sodium Chloride (Normal Saline) 1,000 mls @ 12.5 mls/hr IV ASDIRECTED [facility] Last Admin: 09/23/18 01:10 Dose: 12.5 mls/hr Vancomycin HCl 1.25 gm/ Sodium (Chloride) 250 mls @ 167 mls/hr IV Q12H [facility] Last Admin: 09/25/18 10:31 Dose: 167 mls/hr Magnesium Sulfate 2 gm/ Premix 50 mls @ 25 mls/hr IV ONETIME ONE Stop: 09/24/18 10:59 Last Admin: 09/24/18 09:25 Dose: 25 mls/hr Potassium Chloride 20 meq/ (Premix) 100 mls @ 50 mls/hr IV Q2H [facility] Stop: 09/24/18 12:59 Last Admin: 09/24/18 11:57 Dose: 50 mls/hr Potassium Chloride 40 meq/ (Premix) 100 mls @ 25 mls/hr IV ONETIME ONE Stop: 09/26/18 13:29 Last Admin: 09/26/18 09:28 Dose: 25 mls/hr Lidocaine HCl (Xylocaine 2% Viscous) Confirm Administered Dose 15 ml .ROUTE .STK -MED ONE Stop: 09/23/18 06:46 Lidocaine HCl (Xylocaine 4% Top Soln) Confirm Administered Dose 50 ml .ROUTE .STK-MED ONE Stop: 09/23/18 06:46 Lidocaine HCl (Xylocaine 2% Viscous) Confirm Administered Dose 15 ml .ROUTE .STK -MED ONE Stop: 09/24/18 06:48 Last Admin: 09/24/18 07:25 Dose: 15 ml Lidocaine HCl (Xylocaine 4% Top Soln) Confirm Administered Dose 50 ml .ROUTE .STK-MED ONE Stop: 09/24/18 06:48 Last Admin: 09/24/18 07:49 Dose: 6 ml Methylprednisolone Sodium Succinate (Solu-Medrol) 125 mg IVPUSH ONETIME ONE Stop: 09/18/18 15:07 Last Admin: 09/18/18 15:50 Dose: 125 mg Methylprednisolone Sodium Succinate (Solu-Medrol) 62.5 mg IVPUSH Q8H [facility] Last Admin: 09/21/18 08:19 Dose: 62.5 mg Methylprednisolone Sodium Succinate (Solu-Medrol) 40 mg IV Q8H [facility] Last Admin: 09/22/18 08:03 Dose: 40 mg Methylprednisolone Sodium Succinate (Solu-Medrol) 40 mg IV Q12H [facility] Last Admin: 09/25/18 10:30 Dose: 40 mg Midazolam HCl (Versed 1 Mg/Ml) 4 mg IVPUSH ONETIME ONE Stop: 09/18/18 16:53 Last Admin: 09/18/18 16:59 Dose: 4 mg Midazolam HCl (Versed 1 Mg/Ml) 2 mg IVPUSH ASDIRECTED ONE Stop: 09/18/18 16:54 Last Admin: 09/19/18 14:30 Dose: Not Given Midazolam HCl (Versed 1 Mg/Ml) Confirm Administered Dose 4 mg .ROUTE .STK-MED ONE Stop: 09/18/18 16:54 Last Admin: 09/18/18 17:02 Dose: Not Given Midazolam HCl (Versed 1 Mg/Ml) 2 mg IVPUSH Q1H PRN PRN Reason: Agitation Last Admin: 09/20/18 23:41 Dose: 2 mg Midazolam HCl (Versed 1 Mg/Ml) 5 mg IVPUSH ONETIME ONE Stop: 09/23/18 06:40 Last Admin: 09/23/18 07:30 Dose: 5 mg Midazolam HCl (Versed 1 Mg/Ml) Confirm Administered Dose 5 mg .ROUTE .STK-MED ONE Stop: 09/23/18 07:23 Last Admin: 09/23/18 08:24 Dose: Not Given Midazolam HCl (Versed 1 Mg/Ml) 5 mg IV ASDIRECTED PRN PRN Reason: SEDATION FOR BRONCHOSCOPY Stop: 09/24/18 08:30 Last Admin: 09/24/18 07:12 Dose: 5 mg Morphine Sulfate (Morphine) 4 mg IV Q2H PRN PRN Reason: SEVERE PAIN (7-10) Last Admin: 09/24/18 02:24 Dose: 4 mg Nicotine (Habitrol) 21 mg TRDERM ONETIME ONE Stop: 09/20/18 16:54 Last Admin: 09/20/18 17:41 Dose: 21 mg Oxycodone HCl (Oxycodone) 5 mg PO Q4H PRN PRN Reason: Pain Last Admin: 09/26/18 04:19 Dose: 5 mg Pantoprazole Sodium (Protonix Iv) 40 mg IV Q24H [facility] Last Admin: 09/24/18 17:29 Dose: 40 mg Potassium Chloride (Klor-Con M20) 40 meq PO ONETIME ONE Stop: 09/26/18 08:31 Last Admin: 09/26/18 09:28 Dose: 40 meq Potassium Chloride (Klor-Con M20) 40 meq PO ONETIME ONE Stop: 09/27/18 09:01 Last Admin: 09/27/18 09:34 Dose: 40 meq Potassium Chloride (Klor-Con M20) 40 meq PO ONETIME ONE Stop: 09/27/18 17:01 Last Admin: 09/27/18 18:12 Dose: 40 meq Potassium Chloride (Klor-Con M20) 40 meq PO ONETIME ONE Stop: 09/28/18 09:01 Last Admin: 09/28/18 09:12 Dose: 40 meq Prednisone (Prednisone) 40 mg PO WITHBREAKFAST [facility] Last Admin: 09/27/18 08:59 Dose: 40 mg Propofol (Diprivan 20 Ml) Confirm Administered Dose 200 mg .ROUTE .STK-MED ONE Stop: 09/18/18 15:04 Succinylcholine Chloride (Quelicin) Confirm Administered Dose 200 mg .ROUTE .STK -MED ONE Stop: 09/18/18 15:04 Vancomycin HCl (Vancomycin) Confirm Administered Dose 2 gm .ROUTE .STK-MED ONE Stop: 09/18/18 18:40 Last Admin: 09/18/18 18:55 Dose: Not Given - Exam Quality Assessment: Supplemental Oxygen, Central Line/PICC, Urine Catheter, DVT Prophylaxis General: Alert, Oriented, Cooperative, No Acute Distress Lungs: Clear to Auscultation, Normal Respiratory Effort Cardiovascular: Regular Rate, Regular Rhythm, No Murmurs GI/Abdominal Exam: Soft, Non-Tender, No Organomegaly, No Distention Extremities: Non-Tender, No Pedal Edema Skin: Warm, Dry - Problem List Review Problem List Initiated/Reviewed/Updated: Yes - My Orders Last 24 Hours: My Active Orders 09/27/18 10:00 Diltiazem 125 mg Sodium Chloride 0.9% [Normal Saline] 100 ml IV TITRATE 09/27/18 10:39 Calcium Carbonate [Tums] 1,000 mg PO Q2H PRN Zolpidem [Ambien] 5 mg PO BEDTIME PRN 09/27/18 14:00 Esmolol HCL in Sterile Water [Esmolol HCL in Sterile Water 2,500 MG/250 ML] 250 ml IV TITRATE 09/28/18 09:27 Furosemide [Lasix] 80 mg PO ONETIME ONE 09/28/18 09:30 Magnesium Oxide 400 mg PO BID 09/28/18 17:00 Potassium Chloride [Klor-Con M20] 40 meq PO ONETIME ONE 09/29/18 05:00 BASIC METABOLIC PANEL,BMP [CHEM] Timed CBC WITH AUTO DIFF [HEME] Timed MAGNESIUM [CHEM] Timed - Plan Plan:: ASSESSMENT AND PLAN - Bilateral pneumonia with sepsis -stable since extubation, now oxygenating well on room air -Supplemental oxygen as needed -Repeat furosemide today -Scheduled and as needed nebulizers Atrial fibrillation with rapid ventricular response-resolved Acute hypoxic and hypercapnic respiratory failure-secondary to pneumonia -Management as above COPD with acute exacerbation - resolved -Management as above Diarrhea-likely secondary to antibiotics, no indication for C. difficile testing -Imodium as needed -Probiotic twice daily Tobacco dependence - Patient will need strong cessation recommendations once he is extubated. -Nicotine patch Morbid obesity - BMI greater than 50. Essential hypertension - normally on medications to lower blood pressure but blood pressure is significantly low at this time. Antihypertensive medications will remain on hold. Maintenance issues - - DVT prophylaxis - enoxaparin - GI prophylaxis - PPI - Nutrition - regular diet - Sauceda catheter - placed in the emergency room for strict intake and output monitoring Disposition - I would anticipate discharge home versus half-way, dependent on overall strength and ability to transfer as well as ambulate Primary care physician - Dr Sandra
[2018-09-28] MEDS ORDERED: Furosemide 40 MG Tab PO ONE (10:00)
[2018-09-28] MEDS: Magnesium Oxide 400 MG Tab PO SCH ×2 (10:00→20:54)
--- NOTE | 2018-09-28 11:06 | CONS ---
DATE OF SERVICE: 09/23/2018 REFERRING PHYSICIAN: CONSULTING PHYSICIAN: Rangel Butt MD The patient has been persistently ventilated. He has fairly dense infiltrates in both bases, left more than the right. At the time of bronchoscopy today, he was noted to have diffuse mucoid casting throughout the tracheobronchial tree, and this was irrigated and bronchoalveolar lavage also obtained from the left basilar segments. The plan will be to add Mucomyst along with DuoNeb and also begin using a directable catheter trying at the left side, sucked out a little bit more completely, and we will plan to repeat a bronchoscopy tomorrow morning. Rangel Butt MD /[id number]
[2018-09-29] MEDS: Acetaminophen 325 MG Tab PO PRN (05:07)
[2018-09-29] MEDS: Albuterol/Ipratropium 3.0-0.5 MG/3 ML Neb Soln NEB SCH ×4 (07:06→21:43)
[2018-09-29] MEDS: Acetylcysteine 20% 200 MG/ML 4 ML Nebulizer Soln SDV INH SCH ×2 (07:06→21:43)
[2018-09-29] MEDS: Enoxaparin 40 MG/0.4 ML Syringe SUBCUT SCH (08:22)
[2018-09-29] MEDS: Nicotine 21 MG/24 Hr Patch TRDERM SCH (08:22)
[2018-09-29] MEDS: Magnesium Oxide 400 MG Tab PO SCH ×2 (08:23→21:28)
[2018-09-29] MEDS: Lactobacillus Rhamnosus GG (Probiotic) Cap PO SCH ×2 (08:23→21:28)
[2018-09-29] MEDS: Pantoprazole 40 MG Tab.CR PO SCH (08:23)
--- NOTE | 2018-09-29 10:51 | PCM.PN ---
- General Info Date of Service: 09/29/18 Subjective Update: There were no acute events overnight. The patient has remained in sinus rhythm with borderline tachycardia. He does not report shortness of breath. No complaints of abdominal pain. He is very weak and requires the assistance of 2 people and a lift device to get out of the chair or out of bed. Lower extremity edema has been improving. He did require supplemental oxygen overnight but has been off during the day. Functional Status: Reports: Pain Controlled, Tolerating Diet - Review of Systems General: Reports: Weakness Pulmonary: Denies: Shortness of Breath - Patient Data Vitals - Most Recent: Last Vital Signs Temp 36.7 C 09/29/18 10:00 Pulse 110 H 09/29/18 10:00 Resp 22 H 09/29/18 10:00 BP 143/82 H 09/29/18 10:00 Pulse Ox 92 L 09/29/18 10:00 Weight - Most Recent: 179.9 kg I&O - Last 24 Hours: Intake & Output 09/28/18 09/29/18 09/29/18 22:59 06:59 14:59 Intake Total 480 1080 Output Total 950 500 275 Balance -470 580 -275 Lab Results Last 24 Hours: Laboratory Results - last 24 hr 09/29/18 09/29/18 Range/Units 04:45 04:45 WBC 15.7 H (4.5-11.0) K/uL RBC 3.93 L (4.30-5.90) M/uL Hgb 10.9 L (12.0-15.0) g/dL Hct 33.6 L (40.0-54.0) % MCV 86 (80-98) fL MCH 28 (27-31) pg MCHC 32 (32-36) % Plt Count 243 (150-400) K/uL Add Manual Diff Yes Neutrophils % (Manual) 61 (36-66) % Band Neutrophils % 5 (5-11) % Lymphocytes % (Manual) 17 L (24-44) % Monocytes % (Manual) 12 H (2-6) % Eosinophils % (Manual) 5 H (2-4) % Sodium 138 L (140-148) mmol/L Potassium 4.3 (3.6-5.2) mmol/L Chloride 102 (100-108) mmol/L Carbon Dioxide 28 (21-32) mmol/L Anion Gap 12.3 (5.0-14.0) mmol/L BUN 39 H (7-18) mg/dL Creatinine 1.4 H (0.8-1.3) mg/dL Est Cr Clr Drug Dosing 60.90 mL/min Estimated GFR (MDRD) 52 L (>60) Glucose 139 H (74-106) mg/dL Calcium 9.0 (8.5-10.1) mg/dL Magnesium 1.7 L (1.8-2.4) mg/dL Petey Results Last 24 Hours: Microbiology 09/24/18 07:26 Fungal Culture - Preliminary Bronchial Washings - Mixed NO FUNGAL GROWTH AT 1 WEEK 09/23/18 07:26 Fungal Culture - Preliminary Bronchial Alveolar Lavage - Lung, Left NO FUNGAL GROWTH AT 1 WEEK 09/23/18 07:25 Fungal Culture - Preliminary Tracheal Washings NO FUNGAL GROWTH AT 1 WEEK 09/24/18 07:26 AFB Specimen Processing Tissue - Final Bronchial Washings - Mixed Acid Fast Bacilli Smear - Final Acid Fast Bacilli Culture - Preliminary Med Orders - Current: Current Medications Acetaminophen (Tylenol) 650 mg RECTAL Q4H PRN PRN Reason: Mild pain/fever Last Admin: 09/19/18 04:57 Dose: 650 mg Acetaminophen (Tylenol) 650 mg PO Q4H PRN PRN Reason: Pain Last Admin: 09/29/18 05:07 Dose: 650 mg Acetylcysteine (Mucomyst 20%) 400 mg INH BIDRT [facility] Last Admin: 09/29/18 07:06 Dose: 400 mg Albuterol (Proventil Neb Soln) 2.5 mg NEB Q2H PRN PRN Reason: Shortness Of Breath/wheezing Last Admin: 09/19/18 23:53 Dose: 2.5 mg Albuterol/Ipratropium (Duoneb 3.0-0.5 Mg/3 Ml) 3 ml NEB QIDRT [facility] Last Admin: 09/29/18 07:06 Dose: 3 ml Calcium Carbonate/Glycine (Tums) 1,000 mg PO Q2H PRN PRN Reason: Indigestion Dimethicone/Zinc Oxide (Rash Relief-Zinc Oxide [place]) 0 gm TOP ASDIRECTED PRN PRN Reason: rash Last Admin: 09/25/18 15:52 Dose: 3 spray Enoxaparin Sodium (Lovenox) 40 mg SUBCUT DAILY [facility] Last Admin: 09/29/18 08:22 Dose: 40 mg Lactobacillus Rhamnosus (Culturelle) 1 cap PO BID [facility] Last Admin: 09/29/18 08:23 Dose: 1 cap Loperamide HCl (Imodium) 2 mg PO Q4H PRN PRN Reason: Diarrhea Last Admin: 09/26/18 14:46 Dose: 2 mg Magnesium Oxide (Magnesium Oxide) 400 mg PO BID [facility] Last Admin: 09/29/18 08:23 Dose: 400 mg Nicotine (Habitrol) 21 mg TRDERM DAILY [facility] Last Admin: 09/29/18 08:22 Dose: 21 mg Ondansetron HCl (Zofran Odt) 4 mg PO Q6H PRN PRN Reason: Nausea able to take PO Ondansetron HCl (Zofran) 4 mg IV Q6H PRN PRN Reason: Nausea/Vomiting Pantoprazole Sodium (Protonix) 40 mg PO DAILY@0730 [facility] Last Admin: 09/29/18 08:23 Dose: 40 mg Sodium Chloride (Saline Flush) 10 ml FLUSH ASDIRECTED PRN PRN Reason: Keep Vein Open Last Admin: 09/18/18 14:07 Dose: 10 ml Discontinued Medications Acetaminophen (Tylenol Bulk Bottle) 650 mg PO Q4H PRN PRN Reason: Pain Albuterol (Proventil Neb Soln) 2.5 mg NEB ONETIME ONE Stop: 09/18/18 13:51 Last Admin: 09/18/18 14:08 Dose: 2.5 mg Albuterol/Ipratropium (Duoneb 3.0-0.5 Mg/3 Ml) 3 ml NEB ONETIME ONE Stop: 09/18/18 13:26 Last Admin: 09/18/18 14:09 Dose: 3 ml Diltiazem HCl (Diltiazem) 20 mg IVPUSH ONETIME ONE Stop: 09/27/18 10:01 Last Admin: 09/27/18 09:48 Dose: 20 mg Furosemide (Lasix) 40 mg IVPUSH NOW ONE Stop: 09/18/18 16:46 Last Admin: 09/18/18 17:04 Dose: Not Given Furosemide (Lasix) 40 mg IVPUSH ONETIME ONE Stop: 09/21/18 09:56 Last Admin: 09/21/18 09:51 Dose: 40 mg Furosemide (Lasix) 20 mg IVPUSH ONETIME ONE Stop: 09/21/18 21:01 Last Admin: 09/21/18 20:23 Dose: 20 mg Furosemide (Lasix) 20 mg IVPUSH NOW ONE Stop: 09/22/18 10:16 Last Admin: 09/22/18 11:10 Dose: 20 mg Furosemide (Lasix) 20 mg IVPUSH NOW ONE Stop: 09/23/18 10:15 Last Admin: 09/23/18 10:51 Dose: 20 mg Furosemide (Lasix) 20 mg IVPUSH NOW ONE Stop: 09/24/18 10:16 Last Admin: 09/24/18 10:55 Dose: 20 mg Furosemide (Lasix) 20 mg IVPUSH NOW ONE Stop: 09/25/18 14:46 Last Admin: 09/25/18 16:05 Dose: 20 mg Furosemide (Lasix) 20 mg IVPUSH NOW ONE Stop: 09/26/18 08:22 Last Admin: 09/26/18 10:37 Dose: 20 mg Furosemide (Lasix) Confirm Administered Dose 20 mg .ROUTE .STK-MED ONE Stop: 09/26/18 10:36 Last Admin: 09/26/18 10:41 Dose: Not Given Furosemide (Lasix) 40 mg IVPUSH NOW ONE Stop: 09/27/18 10:37 Last Admin: 09/27/18 11:38 Dose: 40 mg Furosemide (Lasix) 40 mg IVPUSH NOW ONE Stop: 09/28/18 08:32 Last Admin: 09/28/18 09:32 Dose: Not Given Furosemide (Lasix) 80 mg PO ONETIME ONE Stop: 09/28/18 10:01 Last Admin: 09/28/18 10:00 Dose: 80 mg Sodium Chloride (Normal Saline) 250 mls @ 500 mls/hr IV ASDIRECTED [facility] Last Admin: 09/18/18 14:47 Dose: 500 mls/hr Heparin Sodium (Porcine) 5,000 (units/ Sodium Chloride) 501 mls @ 5 mls/hr IV ASDIRECTED [facility] Last Admin: 09/18/18 15:50 Dose: 5 mls/hr Ceftriaxone Sodium 2 gm/ (Sodium Chloride) 50 mls @ 100 mls/hr IV Q24H [facility] Levofloxacin/Dextrose 750 mg/ (Premix) 150 mls @ 100 mls/hr IV Q24H [facility] Last Admin: 09/25/18 16:39 Dose: 100 mls/hr Propofol (Diprivan 100 Ml) 100 mls @ 32.382 mls/hr IV TITRATE [facility]; Protocol Last Admin: 09/25/18 05:11 Dose: 25 mcg/kg/min, 26.985 mls/hr Sodium Chloride (Normal Saline) 1,000 mls @ 25 mls/hr IV ASDIRECTED [facility] Last Admin: 09/19/18 14:34 Dose: 25 mls/hr Piperacillin/Tazobactam/ (Dextrose 3.375 gm/ Premix) 50 mls @ 100 mls/hr IV Q6H [facility] Last Admin: 09/25/18 12:48 Dose: 100 mls/hr Sodium Chloride (Normal Saline) 1,000 mls @ 999 mls/hr IV ASDIRECTED [facility] Stop: 09/18/18 18:01 Last Admin: 09/18/18 18:42 Dose: 999 mls/hr Sodium Chloride (Normal Saline) 1,000 mls @ 999 mls/hr IV ASDIRECTED [facility] Stop: 09/18/18 18:16 Last Admin: 09/18/18 17:46 Dose: 999 mls/hr Sodium Chloride (Normal Saline) 1,000 mls @ 999 mls/hr IV ASDIRECTED [facility] Stop: 09/18/18 20:20 Vancomycin HCl 2 gm/ Sodium (Chloride) 250 mls @ 150 mls/hr IV Q12H [facility] Vancomycin HCl 1.5 gm/ Sodium (Chloride) 250 mls @ 150 mls/hr IV Q12H [facility] Last Admin: 09/22/18 21:26 Dose: 150 mls/hr Vancomycin HCl 2 gm/ Sodium (Chloride) 500 mls @ 250 mls/hr IV Q12H [facility] Last Admin: 09/18/18 18:57 Dose: 250 mls/hr Sodium Chloride (Normal Saline) 1,000 mls @ 100 mls/hr IV ASDIRECTED [facility] Last Admin: 09/20/18 20:23 Dose: 100 mls/hr Sodium Chloride (Normal Saline) 500 mls @ 500 mls/hr IV ASDIRECTED [facility] Stop: 09/19/18 10:16 Sodium Chloride (Normal Saline) 1,000 mls @ 12.5 mls/hr IV ASDIRECTED [facility] Last Admin: 09/21/18 15:48 Dose: 12.5 mls/hr Sodium Chloride (Normal Saline) 1,000 mls @ 12.5 mls/hr IV ASDIRECTED [facility] Last Admin: 09/23/18 01:10 Dose: 12.5 mls/hr Vancomycin HCl 1.25 gm/ Sodium (Chloride) 250 mls @ 167 mls/hr IV Q12H [facility] Last Admin: 09/25/18 10:31 Dose: 167 mls/hr Magnesium Sulfate 2 gm/ Premix 50 mls @ 25 mls/hr IV ONETIME ONE Stop: 09/24/18 10:59 Last Admin: 09/24/18 09:25 Dose: 25 mls/hr Potassium Chloride 20 meq/ (Premix) 100 mls @ 50 mls/hr IV Q2H [facility] Stop: 09/24/18 12:59 Last Admin: 09/24/18 11:57 Dose: 50 mls/hr Potassium Chloride 40 meq/ (Premix) 100 mls @ 25 mls/hr IV ONETIME ONE Stop: 09/26/18 13:29 Last Admin: 09/26/18 09:28 Dose: 25 mls/hr Diltiazem HCl 125 mg/ Sodium (Chloride) 125 mls @ 5 mls/hr IV TITRATE [facility]; Protocol Last Titration: 09/27/18 15:35 Dose: 5 mg/hr, 5 mls/hr Esmolol HCl (Esmolol Hcl In Sterile Water 2,500 Mg/250 Ml) 250 mls @ 53.97 mls/ hr IV TITRATE [facility]; Protocol Last Titration: 09/27/18 15:35 Dose: 25 mcg/kg/min, 26.985 mls/hr Lidocaine HCl (Xylocaine 2% Viscous) Confirm Administered Dose 15 ml .ROUTE .STK -MED ONE Stop: 09/23/18 06:46 Lidocaine HCl (Xylocaine 4% Top Soln) Confirm Administered Dose 50 ml .ROUTE .STK-MED ONE Stop: 09/23/18 06:46 Lidocaine HCl (Xylocaine 2% Viscous) Confirm Administered Dose 15 ml .ROUTE .STK -MED ONE Stop: 09/24/18 06:48 Last Admin: 09/24/18 07:25 Dose: 15 ml Lidocaine HCl (Xylocaine 4% Top Soln) Confirm Administered Dose 50 ml .ROUTE .STK-MED ONE Stop: 09/24/18 06:48 Last Admin: 09/24/18 07:49 Dose: 6 ml Methylprednisolone Sodium Succinate (Solu-Medrol) 125 mg IVPUSH ONETIME ONE Stop: 09/18/18 15:07 Last Admin: 09/18/18 15:50 Dose: 125 mg Methylprednisolone Sodium Succinate (Solu-Medrol) 62.5 mg IVPUSH Q8H [facility] Last Admin: 09/21/18 08:19 Dose: 62.5 mg Methylprednisolone Sodium Succinate (Solu-Medrol) 40 mg IV Q8H [facility] Last Admin: 09/22/18 08:03 Dose: 40 mg Methylprednisolone Sodium Succinate (Solu-Medrol) 40 mg IV Q12H [facility] Last Admin: 09/25/18 10:30 Dose: 40 mg Midazolam HCl (Versed 1 Mg/Ml) 4 mg IVPUSH ONETIME ONE Stop: 09/18/18 16:53 Last Admin: 09/18/18 16:59 Dose: 4 mg Midazolam HCl (Versed 1 Mg/Ml) 2 mg IVPUSH ASDIRECTED ONE Stop: 09/18/18 16:54 Last Admin: 09/19/18 14:30 Dose: Not Given Midazolam HCl (Versed 1 Mg/Ml) Confirm Administered Dose 4 mg .ROUTE .STK-MED ONE Stop: 09/18/18 16:54 Last Admin: 09/18/18 17:02 Dose: Not Given Midazolam HCl (Versed 1 Mg/Ml) 2 mg IVPUSH Q1H PRN PRN Reason: Agitation Last Admin: 09/20/18 23:41 Dose: 2 mg Midazolam HCl (Versed 1 Mg/Ml) 5 mg IVPUSH ONETIME ONE Stop: 09/23/18 06:40 Last Admin: 09/23/18 07:30 Dose: 5 mg Midazolam HCl (Versed 1 Mg/Ml) Confirm Administered Dose 5 mg .ROUTE .STK-MED ONE Stop: 09/23/18 07:23 Last Admin: 09/23/18 08:24 Dose: Not Given Midazolam HCl (Versed 1 Mg/Ml) 5 mg IV ASDIRECTED PRN PRN Reason: SEDATION FOR BRONCHOSCOPY Stop: 09/24/18 08:30 Last Admin: 09/24/18 07:12 Dose: 5 mg Morphine Sulfate (Morphine) 4 mg IV Q2H PRN PRN Reason: SEVERE PAIN (7-10) Last Admin: 09/24/18 02:24 Dose: 4 mg Nicotine (Habitrol) 21 mg TRDERM ONETIME ONE Stop: 09/20/18 16:54 Last Admin: 09/20/18 17:41 Dose: 21 mg Oxycodone HCl (Oxycodone) 5 mg PO Q4H PRN PRN Reason: Pain Last Admin: 09/26/18 04:19 Dose: 5 mg Pantoprazole Sodium (Protonix Iv) 40 mg IV Q24H [facility] Last Admin: 09/24/18 17:29 Dose: 40 mg Potassium Chloride (Klor-Con M20) 40 meq PO ONETIME ONE Stop: 09/26/18 08:31 Last Admin: 09/26/18 09:28 Dose: 40 meq Potassium Chloride (Klor-Con M20) 40 meq PO ONETIME ONE Stop: 09/27/18 09:01 Last Admin: 09/27/18 09:34 Dose: 40 meq Potassium Chloride (Klor-Con M20) 40 meq PO ONETIME ONE Stop: 09/27/18 17:01 Last Admin: 09/27/18 18:12 Dose: 40 meq Potassium Chloride (Klor-Con M20) 40 meq PO ONETIME ONE Stop: 09/28/18 09:01 Last Admin: 09/28/18 09:12 Dose: 40 meq Potassium Chloride (Klor-Con M20) 40 meq PO ONETIME ONE Stop: 09/28/18 17:01 Last Admin: 09/28/18 17:34 Dose: 40 meq Prednisone (Prednisone) 40 mg PO WITHBREAKFAST [facility] Last Admin: 09/27/18 08:59 Dose: 40 mg Propofol (Diprivan 20 Ml) Confirm Administered Dose 200 mg .ROUTE .STK-MED ONE Stop: 09/18/18 15:04 Succinylcholine Chloride (Quelicin) Confirm Administered Dose 200 mg .ROUTE .STK -MED ONE Stop: 09/18/18 15:04 Vancomycin HCl (Vancomycin) Confirm Administered Dose 2 gm .ROUTE .STK-MED ONE Stop: 09/18/18 18:40 Last Admin: 09/18/18 18:55 Dose: Not Given Zolpidem Tartrate (Ambien) 5 mg PO BEDTIME PRN PRN Reason: Insomnia Last Admin: 09/28/18 00:45 Dose: 5 mg - Exam Quality Assessment: No: Supplemental Oxygen General: Alert, Oriented, Cooperative, No Acute Distress Lungs: Clear to Auscultation, Normal Respiratory Effort, Decreased Breath Sounds (right lung base) Cardiovascular: Regular Rhythm, Tachycardia GI/Abdominal Exam: Soft, No Distention Extremities: Pedal Edema. No: Increased Warmth Skin: Warm, Dry Psy/Mental Status: Alert, Normal Affect - Problem List & Annotations (1) Bilateral pneumonia SNOMED Code(s): 144511304 Code(s): J18.9 - PNEUMONIA, UNSPECIFIED ORGANISM Status: Acute Current Visit: Yes Qualifiers: Pneumonia type: due to unspecified organism Lung location: lower lobe of lung Qualified Code(s): J18.1 - Lobar pneumonia, unspecified organism (2) Acute respiratory failure with hypoxia and hypercapnia SNOMED Code(s): 286683538 Code(s): J96.01 - ACUTE RESPIRATORY FAILURE WITH HYPOXIA; J96.02 - ACUTE RESPIRATORY FAILURE WITH HYPERCAPNIA Status: Acute Current Visit: Yes (3) COPD exacerbation SNOMED Code(s): 937771329 Code(s): J44.1 - CHRONIC OBSTRUCTIVE PULMONARY DISEASE W (ACUTE) EXACERBATION Status: Acute Current Visit: Yes (4) Tobacco dependence SNOMED Code(s): 43350625 Code(s): F17.200 - NICOTINE DEPENDENCE, UNSPECIFIED, UNCOMPLICATED Status: Chronic Current Visit: Yes (5) Morbid obesity SNOMED Code(s): 058083348 Code(s): E66.01 - MORBID (SEVERE) OBESITY DUE TO EXCESS CALORIES Status: Chronic Current Visit: Yes - Problem List Review Problem List Initiated/Reviewed/Updated: Yes - My Orders Last 24 Hours: My Active Orders 09/29/18 10:48 Transfer Patient (Change bed) [ADT] Routine 09/29/18 10:49 Furosemide [Lasix] 40 mg IVPUSH ONETIME ONE 09/29/18 10:50 Up With Assistance [RC] ASDIRECTED 09/29/18 11:00 Metoprolol Tartrate [Lopressor] 25 mg PO Q12H 09/29/18 21:00 Melatonin 9 mg PO BEDTIME - Plan Plan:: ASSESSMENT AND PLAN - Bilateral pneumonia with sepsis -stable since extubation, now oxygenating well on room air. No pulmonary symptoms. -Supplemental oxygen as needed -Repeat furosemide today -Scheduled and as needed nebulizers Generalized weakness - secondary to acute illness with pneumonia and sepsis. Requires significant assistance. Patient is not interested in the [facility] but may need to go there for subacute rehabilitation if strength does not improve in the next day or 2. -Continue physical therapy Atrial fibrillation with rapid ventricular response - resolved. He has mild hypertension and borderline tachycardia Henrietta start him on metoprolol to reduce the risk of recurrent atrial fibrillation. -Metoprolol 25 mg twice a day Acute hypoxic and hypercapnic respiratory failure - secondary to pneumonia, now resolved. -Management as above COPD with acute exacerbation - resolved -Management as above Diarrhea - likely secondary to antibiotics, improving. -Imodium as needed -Probiotic twice daily Tobacco dependence - Patient is interested in remaining tobacco free. -Nicotine patch Morbid obesity - BMI greater than 50. Essential hypertension - lisinopril has been on hold since the time of admission. Planning to initiate metoprolol as above. Maintenance issues - - DVT prophylaxis - enoxaparin - GI prophylaxis - PPI - Nutrition - regular diet - Sauceda catheter - removed Disposition - I would anticipate discharge home versus [facility], dependent on overall strength and ability to transfer as well as ambulate Michael Roman M.D.
[2018-09-29] MEDS ORDERED: Furosemide 40 MG/4 ML VIAL IVPUSH ONE (11:00)
--- NOTE | 2018-09-29 11:50 | OR ---
DATE OF PROCEDURE: 09/23/2018 PREOPERATIVE DIAGNOSIS: Persistent pulmonary infiltrates with an unrelated patient. POSTOPERATIVE DIAGNOSIS: Diffuse mucoid cast-like infiltrates, bilateral tracheobronchial tree. PROCEDURES: Flexible bronchoscopy with tracheobronchial washings and: 1. Irrigation and suction of mucoid pulmonary secretions (53771). 2. Bronchoalveolar lavage to left lower lobe (82501). ANESTHESIA: Topical plus IV sedation. INDICATIONS FOR PROCEDURE: A 62-year-old who has been ventilated now for several days and has persistent infiltrates bilaterally. The plan is to proceed with a flexible bronchoscopy for tracheobronchial washings as well as diagnostic purposes. The plan is to proceed with a bronchoscopy with washings, irrigation, and probable bronchoalveolar lavage at the left lower lobe, which appears to be the most dense area infiltrated in the lung. Potential risks were reviewed with the patient's family and they wished to proceed. DETAILS OF PROCEDURE: In the ICU bed, the patient was ventilated via orotracheal tube and received some additional Versed in addition to the propofol infusion he was receiving. The flexible bronchoscope was passed through the endotracheal tube and into the distal trachea. Immediately, the area was irrigated with saline solution and/or topical lidocaine, and the patient was noted to have throughout the entire tracheobronchial tree quite a bit in the way of cast-like mucoid secretions. These were gradually broken up, these were quite viscous. Eventually, everything was satisfactorily cleared. At that point, the bronchoscope was wedged into the basilar segments of the left lower lobe and 200 mL of saline injected and then evacuated, and both tracheobronchial washings and bronchoalveolar lavage were sent for full microbiologic and cytologic workup. At that point, procedure was concluded and the patient tolerated the procedure well. The plan will be to start the patient on Mucomyst along with bronchodilators today to help break up the secretions. We will plan to proceed with an additional bronchoscopy tomorrow to assess the effectiveness of the Mucomyst and clear any additional secretions as needed. Rangel Butt MD /[id number]
[2018-09-29] MEDS: Metoprolol Tartrate 25 MG Tab PO SCH ×2 (12:51→21:29)
[2018-09-29] MEDS: Melatonin 3 MG Tab PO SCH (21:28)
[2018-09-30] MEDS: Acetylcysteine 20% 200 MG/ML 4 ML Nebulizer Soln SDV INH SCH (07:32)
[2018-09-30] MEDS: Albuterol/Ipratropium 3.0-0.5 MG/3 ML Neb Soln NEB SCH ×4 (07:32→20:58)
--- NOTE | 2018-09-30 07:43 | OR ---
DATE OF PROCEDURE: 09/24/2018 PREOPERATIVE DIAGNOSIS: Persistent ventilator dependence with previously noted extensive mucoid secretions. POSTOPERATIVE DIAGNOSIS: Marked improvement in secretion volume and quality compared to previous exam. OPERATIVE PROCEDURE: Flexible bronchoscopy with tracheobronchial washings for tracheal pulmonary toilet ([id number]). ANESTHESIA: Topical plus IV sedation. INDICATION FOR PROCEDURE: The patient underwent a bronchoscopy yesterday and was noted to have extensive mucoid secretions. The plan is to proceed with followup bronchoscopy at this point in time to clear any additional secretions, as well as to assess the effectiveness of the Mucomyst, which had been started. The potential risks of the procedure had been reviewed with the patient's family, and they wished to proceed. DETAILS OF PROCEDURE: In the ICU room, the patient received some IV Versed, in addition to the propofol infusion, and the flexible bronchoscope was brought down through the endotracheal tube. Today, there were only some scant secretions present in the tracheobronchial tree. These were now much more watery, and it appeared that the Mucomyst has become effective in terms of clearing up the mucoid secretions. All of the secretions were then evacuated, and at that point, the procedure concluded. The patient tolerated the procedure well. Rangel Butt MD /[id number]
[2018-09-30] MEDS: Acetaminophen 325 MG Tab PO PRN ×2 (07:57→21:08)
[2018-09-30] MEDS: Pantoprazole 40 MG Tab.CR PO SCH (07:57)
[2018-09-30] MEDS: Nicotine 21 MG/24 Hr Patch TRDERM SCH (08:54)
[2018-09-30] MEDS: Lactobacillus Rhamnosus GG (Probiotic) Cap PO SCH ×2 (08:54→20:58)
[2018-09-30] MEDS: Metoprolol Tartrate 25 MG Tab PO SCH ×2 (08:55→20:59)
[2018-09-30] MEDS: Magnesium Oxide 400 MG Tab PO SCH ×2 (08:56→21:01)
[2018-09-30] MEDS: Enoxaparin 40 MG/0.4 ML Syringe SUBCUT SCH (08:56)
--- NOTE | 2018-09-30 14:33 | PCM.PN ---
- General Info Date of Service: 09/30/18 Subjective Update: There were no acute events overnight but this morning around 7 AM the patient had to go to the bathroom urgently. He was unable to reach his call light or his urinal so he attempted to get to the bathroom which was about 10 feet away. About fci there he started to pass urine and slipped and twisted his knee and slid down to the ground. He does not report any pain in his knee or ankle at this time. No reports of pain and back arms or shoulders. He feels fine. No complaints of shortness of breath. Vital signs have all been stable. He has not needed supplemental oxygen. Functional Status: Reports: Pain Controlled, Tolerating Diet. Denies: Ambulating - Review of Systems General: Reports: Weakness Pulmonary: Denies: Shortness of Breath - Patient Data Vitals - Most Recent: Last Vital Signs Temp 36.4 C 09/30/18 11:42 Pulse 92 09/30/18 11:42 Resp 22 H 09/30/18 11:42 BP 117/75 09/30/18 11:42 Pulse Ox 95 09/30/18 11:42 Weight - Most Recent: 179.9 kg I&O - Last 24 Hours: Intake & Output 09/29/18 09/30/18 09/30/18 22:59 06:59 14:59 Intake Total 240 580 Output Total 650 Balance -650 240 580 Petey Results Last 24 Hours: Microbiology 09/24/18 07:26 Fungal Culture - Preliminary Bronchial Washings - Mixed NO FUNGAL GROWTH AT 1 WEEK 09/23/18 07:26 Fungal Culture - Preliminary Bronchial Alveolar Lavage - Lung, Left NO FUNGAL GROWTH AT 1 WEEK 09/23/18 07:25 Fungal Culture - Preliminary Tracheal Washings NO FUNGAL GROWTH AT 1 WEEK Med Orders - Current: Current Medications Acetaminophen (Tylenol) 650 mg RECTAL Q4H PRN PRN Reason: Mild pain/fever Last Admin: 09/19/18 04:57 Dose: 650 mg Acetaminophen (Tylenol) 650 mg PO Q4H PRN PRN Reason: Pain Last Admin: 09/30/18 07:57 Dose: 650 mg Albuterol (Proventil Neb Soln) 2.5 mg NEB Q2H PRN PRN Reason: Shortness Of Breath/wheezing Last Admin: 09/19/18 23:53 Dose: 2.5 mg Albuterol/Ipratropium (Duoneb 3.0-0.5 Mg/3 Ml) 3 ml NEB QIDRT [facility] Last Admin: 09/30/18 10:31 Dose: 3 ml Calcium Carbonate/Glycine (Tums) 1,000 mg PO Q2H PRN PRN Reason: Indigestion Dimethicone/Zinc Oxide (Rash Relief-Zinc Oxide [place]) 0 gm TOP ASDIRECTED PRN PRN Reason: rash Last Admin: 09/25/18 15:52 Dose: 3 spray Enoxaparin Sodium (Lovenox) 40 mg SUBCUT DAILY [facility] Last Admin: 09/30/18 08:56 Dose: 40 mg Lactobacillus Rhamnosus (Culturelle) 1 cap PO BID [facility] Last Admin: 09/30/18 08:54 Dose: 1 cap Loperamide HCl (Imodium) 2 mg PO Q4H PRN PRN Reason: Diarrhea Last Admin: 09/26/18 14:46 Dose: 2 mg Magnesium Oxide (Magnesium Oxide) 400 mg PO BID [facility] Last Admin: 09/30/18 08:56 Dose: 400 mg Melatonin (Melatonin) 9 mg PO BEDTIME [facility] Last Admin: 09/29/18 21:28 Dose: 9 mg Metoprolol Tartrate (Lopressor) 25 mg PO BID [facility] Last Admin: 09/30/18 08:55 Dose: 25 mg Nicotine (Habitrol) 21 mg TRDERM DAILY [facility] Last Admin: 09/30/18 08:54 Dose: 21 mg Ondansetron HCl (Zofran Odt) 4 mg PO Q6H PRN PRN Reason: Nausea able to take PO Ondansetron HCl (Zofran) 4 mg IV Q6H PRN PRN Reason: Nausea/Vomiting Pantoprazole Sodium (Protonix) 40 mg PO DAILY@0730 [facility] Last Admin: 09/30/18 07:57 Dose: 40 mg Sodium Chloride (Saline Flush) 10 ml FLUSH ASDIRECTED PRN PRN Reason: Keep Vein Open Last Admin: 09/18/18 14:07 Dose: 10 ml Discontinued Medications Acetaminophen (Tylenol Bulk Bottle) 650 mg PO Q4H PRN PRN Reason: Pain Acetylcysteine (Mucomyst 20%) 400 mg INH BIDRT [facility] Last Admin: 09/30/18 07:32 Dose: 400 mg Albuterol (Proventil Neb Soln) 2.5 mg NEB ONETIME ONE Stop: 09/18/18 13:51 Last Admin: 09/18/18 14:08 Dose: 2.5 mg Albuterol/Ipratropium (Duoneb 3.0-0.5 Mg/3 Ml) 3 ml NEB ONETIME ONE Stop: 09/18/18 13:26 Last Admin: 09/18/18 14:09 Dose: 3 ml Diltiazem HCl (Diltiazem) 20 mg IVPUSH ONETIME ONE Stop: 09/27/18 10:01 Last Admin: 09/27/18 09:48 Dose: 20 mg Furosemide (Lasix) 40 mg IVPUSH NOW ONE Stop: 09/18/18 16:46 Last Admin: 09/18/18 17:04 Dose: Not Given Furosemide (Lasix) 40 mg IVPUSH ONETIME ONE Stop: 09/21/18 09:56 Last Admin: 09/21/18 09:51 Dose: 40 mg Furosemide (Lasix) 20 mg IVPUSH ONETIME ONE Stop: 09/21/18 21:01 Last Admin: 09/21/18 20:23 Dose: 20 mg Furosemide (Lasix) 20 mg IVPUSH NOW ONE Stop: 09/22/18 10:16 Last Admin: 09/22/18 11:10 Dose: 20 mg Furosemide (Lasix) 20 mg IVPUSH NOW ONE Stop: 09/23/18 10:15 Last Admin: 09/23/18 10:51 Dose: 20 mg Furosemide (Lasix) 20 mg IVPUSH NOW ONE Stop: 09/24/18 10:16 Last Admin: 09/24/18 10:55 Dose: 20 mg Furosemide (Lasix) 20 mg IVPUSH NOW ONE Stop: 09/25/18 14:46 Last Admin: 09/25/18 16:05 Dose: 20 mg Furosemide (Lasix) 20 mg IVPUSH NOW ONE Stop: 09/26/18 08:22 Last Admin: 09/26/18 10:37 Dose: 20 mg Furosemide (Lasix) Confirm Administered Dose 20 mg .ROUTE .STK-MED ONE Stop: 09/26/18 10:36 Last Admin: 09/26/18 10:41 Dose: Not Given Furosemide (Lasix) 40 mg IVPUSH NOW ONE Stop: 09/27/18 10:37 Last Admin: 09/27/18 11:38 Dose: 40 mg Furosemide (Lasix) 40 mg IVPUSH NOW ONE Stop: 09/28/18 08:32 Last Admin: 09/28/18 09:32 Dose: Not Given Furosemide (Lasix) 80 mg PO ONETIME ONE Stop: 09/28/18 10:01 Last Admin: 09/28/18 10:00 Dose: 80 mg Furosemide (Lasix) 40 mg IVPUSH ONETIME ONE Stop: 09/29/18 11:01 Last Admin: 09/29/18 12:53 Dose: 40 mg Sodium Chloride (Normal Saline) 250 mls @ 500 mls/hr IV ASDIRECTED [facility] Last Admin: 09/18/18 14:47 Dose: 500 mls/hr Heparin Sodium (Porcine) 5,000 (units/ Sodium Chloride) 501 mls @ 5 mls/hr IV ASDIRECTED [facility] Last Admin: 09/18/18 15:50 Dose: 5 mls/hr Ceftriaxone Sodium 2 gm/ (Sodium Chloride) 50 mls @ 100 mls/hr IV Q24H [facility] Levofloxacin/Dextrose 750 mg/ (Premix) 150 mls @ 100 mls/hr IV Q24H [facility] Last Admin: 09/25/18 16:39 Dose: 100 mls/hr Propofol (Diprivan 100 Ml) 100 mls @ 32.382 mls/hr IV TITRATE [facility]; Protocol Last Admin: 09/25/18 05:11 Dose: 25 mcg/kg/min, 26.985 mls/hr Sodium Chloride (Normal Saline) 1,000 mls @ 25 mls/hr IV ASDIRECTED [facility] Last Admin: 09/19/18 14:34 Dose: 25 mls/hr Piperacillin/Tazobactam/ (Dextrose 3.375 gm/ Premix) 50 mls @ 100 mls/hr IV Q6H [facility] Last Admin: 09/25/18 12:48 Dose: 100 mls/hr Sodium Chloride (Normal Saline) 1,000 mls @ 999 mls/hr IV ASDIRECTED [facility] Stop: 09/18/18 18:01 Last Admin: 09/18/18 18:42 Dose: 999 mls/hr Sodium Chloride (Normal Saline) 1,000 mls @ 999 mls/hr IV ASDIRECTED [facility] Stop: 09/18/18 18:16 Last Admin: 09/18/18 17:46 Dose: 999 mls/hr Sodium Chloride (Normal Saline) 1,000 mls @ 999 mls/hr IV ASDIRECTED [facility] Stop: 09/18/18 20:20 Vancomycin HCl 2 gm/ Sodium (Chloride) 250 mls @ 150 mls/hr IV Q12H [facility] Vancomycin HCl 1.5 gm/ Sodium (Chloride) 250 mls @ 150 mls/hr IV Q12H [facility] Last Admin: 09/22/18 21:26 Dose: 150 mls/hr Vancomycin HCl 2 gm/ Sodium (Chloride) 500 mls @ 250 mls/hr IV Q12H [facility] Last Admin: 09/18/18 18:57 Dose: 250 mls/hr Sodium Chloride (Normal Saline) 1,000 mls @ 100 mls/hr IV ASDIRECTED [facility] Last Admin: 09/20/18 20:23 Dose: 100 mls/hr Sodium Chloride (Normal Saline) 500 mls @ 500 mls/hr IV ASDIRECTED [facility] Stop: 09/19/18 10:16 Sodium Chloride (Normal Saline) 1,000 mls @ 12.5 mls/hr IV ASDIRECTED [facility] Last Admin: 09/21/18 15:48 Dose: 12.5 mls/hr Sodium Chloride (Normal Saline) 1,000 mls @ 12.5 mls/hr IV ASDIRECTED [facility] Last Admin: 09/23/18 01:10 Dose: 12.5 mls/hr Vancomycin HCl 1.25 gm/ Sodium (Chloride) 250 mls @ 167 mls/hr IV Q12H [facility] Last Admin: 09/25/18 10:31 Dose: 167 mls/hr Magnesium Sulfate 2 gm/ Premix 50 mls @ 25 mls/hr IV ONETIME ONE Stop: 09/24/18 10:59 Last Admin: 09/24/18 09:25 Dose: 25 mls/hr Potassium Chloride 20 meq/ (Premix) 100 mls @ 50 mls/hr IV Q2H [facility] Stop: 09/24/18 12:59 Last Admin: 09/24/18 11:57 Dose: 50 mls/hr Potassium Chloride 40 meq/ (Premix) 100 mls @ 25 mls/hr IV ONETIME ONE Stop: 09/26/18 13:29 Last Admin: 09/26/18 09:28 Dose: 25 mls/hr Diltiazem HCl 125 mg/ Sodium (Chloride) 125 mls @ 5 mls/hr IV TITRATE [facility]; Protocol Last Titration: 09/27/18 15:35 Dose: 5 mg/hr, 5 mls/hr Esmolol HCl (Esmolol Hcl In Sterile Water 2,500 Mg/250 Ml) 250 mls @ 53.97 mls/ hr IV TITRATE [facility]; Protocol Last Titration: 09/27/18 15:35 Dose: 25 mcg/kg/min, 26.985 mls/hr Lidocaine HCl (Xylocaine 2% Viscous) Confirm Administered Dose 15 ml .ROUTE .STK -MED ONE Stop: 09/23/18 06:46 Lidocaine HCl (Xylocaine 4% Top Soln) Confirm Administered Dose 50 ml .ROUTE .STK-MED ONE Stop: 09/23/18 06:46 Lidocaine HCl (Xylocaine 2% Viscous) Confirm Administered Dose 15 ml .ROUTE .STK -MED ONE Stop: 09/24/18 06:48 Last Admin: 09/24/18 07:25 Dose: 15 ml Lidocaine HCl (Xylocaine 4% Top Soln) Confirm Administered Dose 50 ml .ROUTE .STK-MED ONE Stop: 09/24/18 06:48 Last Admin: 09/24/18 07:49 Dose: 6 ml Methylprednisolone Sodium Succinate (Solu-Medrol) 125 mg IVPUSH ONETIME ONE Stop: 09/18/18 15:07 Last Admin: 09/18/18 15:50 Dose: 125 mg Methylprednisolone Sodium Succinate (Solu-Medrol) 62.5 mg IVPUSH Q8H [facility] Last Admin: 09/21/18 08:19 Dose: 62.5 mg Methylprednisolone Sodium Succinate (Solu-Medrol) 40 mg IV Q8H [facility] Last Admin: 09/22/18 08:03 Dose: 40 mg Methylprednisolone Sodium Succinate (Solu-Medrol) 40 mg IV Q12H [facility] Last Admin: 09/25/18 10:30 Dose: 40 mg Midazolam HCl (Versed 1 Mg/Ml) 4 mg IVPUSH ONETIME ONE Stop: 09/18/18 16:53 Last Admin: 09/18/18 16:59 Dose: 4 mg Midazolam HCl (Versed 1 Mg/Ml) 2 mg IVPUSH ASDIRECTED ONE Stop: 09/18/18 16:54 Last Admin: 09/19/18 14:30 Dose: Not Given Midazolam HCl (Versed 1 Mg/Ml) Confirm Administered Dose 4 mg .ROUTE .STK-MED ONE Stop: 09/18/18 16:54 Last Admin: 09/18/18 17:02 Dose: Not Given Midazolam HCl (Versed 1 Mg/Ml) 2 mg IVPUSH Q1H PRN PRN Reason: Agitation Last Admin: 09/20/18 23:41 Dose: 2 mg Midazolam HCl (Versed 1 Mg/Ml) 5 mg IVPUSH ONETIME ONE Stop: 09/23/18 06:40 Last Admin: 09/23/18 07:30 Dose: 5 mg Midazolam HCl (Versed 1 Mg/Ml) Confirm Administered Dose 5 mg .ROUTE .STK-MED ONE Stop: 09/23/18 07:23 Last Admin: 09/23/18 08:24 Dose: Not Given Midazolam HCl (Versed 1 Mg/Ml) 5 mg IV ASDIRECTED PRN PRN Reason: SEDATION FOR BRONCHOSCOPY Stop: 09/24/18 08:30 Last Admin: 09/24/18 07:12 Dose: 5 mg Morphine Sulfate (Morphine) 4 mg IV Q2H PRN PRN Reason: SEVERE PAIN (7-10) Last Admin: 09/24/18 02:24 Dose: 4 mg Nicotine (Habitrol) 21 mg TRDERM ONETIME ONE Stop: 09/20/18 16:54 Last Admin: 09/20/18 17:41 Dose: 21 mg Oxycodone HCl (Oxycodone) 5 mg PO Q4H PRN PRN Reason: Pain Last Admin: 09/26/18 04:19 Dose: 5 mg Pantoprazole Sodium (Protonix Iv) 40 mg IV Q24H [facility] Last Admin: 09/24/18 17:29 Dose: 40 mg Potassium Chloride (Klor-Con M20) 40 meq PO ONETIME ONE Stop: 09/26/18 08:31 Last Admin: 09/26/18 09:28 Dose: 40 meq Potassium Chloride (Klor-Con M20) 40 meq PO ONETIME ONE Stop: 09/27/18 09:01 Last Admin: 09/27/18 09:34 Dose: 40 meq Potassium Chloride (Klor-Con M20) 40 meq PO ONETIME ONE Stop: 09/27/18 17:01 Last Admin: 09/27/18 18:12 Dose: 40 meq Potassium Chloride (Klor-Con M20) 40 meq PO ONETIME ONE Stop: 09/28/18 09:01 Last Admin: 09/28/18 09:12 Dose: 40 meq Potassium Chloride (Klor-Con M20) 40 meq PO ONETIME ONE Stop: 09/28/18 17:01 Last Admin: 09/28/18 17:34 Dose: 40 meq Prednisone (Prednisone) 40 mg PO WITHBREAKFAST [facility] Last Admin: 09/27/18 08:59 Dose: 40 mg Propofol (Diprivan 20 Ml) Confirm Administered Dose 200 mg .ROUTE .STK-MED ONE Stop: 09/18/18 15:04 Succinylcholine Chloride (Quelicin) Confirm Administered Dose 200 mg .ROUTE .STK -MED ONE Stop: 09/18/18 15:04 Vancomycin HCl (Vancomycin) Confirm Administered Dose 2 gm .ROUTE .STK-MED ONE Stop: 09/18/18 18:40 Last Admin: 09/18/18 18:55 Dose: Not Given Zolpidem Tartrate (Ambien) 5 mg PO BEDTIME PRN PRN Reason: Insomnia Last Admin: 09/28/18 00:45 Dose: 5 mg - Exam Quality Assessment: No: Supplemental Oxygen General: Alert, Oriented, Cooperative, No Acute Distress Lungs: Clear to Auscultation, Normal Respiratory Effort Cardiovascular: Regular Rate, Regular Rhythm GI/Abdominal Exam: Soft, No Distention Extremities: Pedal Edema. No: Joint Swelling, Increased Warmth Skin: Warm, Dry. No: Ecchymosis Psy/Mental Status: Alert, Normal Affect - Problem List & Annotations (1) Bilateral pneumonia SNOMED Code(s): 853613788 Code(s): J18.9 - PNEUMONIA, UNSPECIFIED ORGANISM Status: Acute Current Visit: Yes Qualifiers: Pneumonia type: due to unspecified organism Lung location: lower lobe of lung Qualified Code(s): J18.1 - Lobar pneumonia, unspecified organism (2) Acute respiratory failure with hypoxia and hypercapnia SNOMED Code(s): 054471289 Code(s): J96.01 - ACUTE RESPIRATORY FAILURE WITH HYPOXIA; J96.02 - ACUTE RESPIRATORY FAILURE WITH HYPERCAPNIA Status: Acute Current Visit: Yes (3) COPD exacerbation SNOMED Code(s): 184179961 Code(s): J44.1 - CHRONIC OBSTRUCTIVE PULMONARY DISEASE W (ACUTE) EXACERBATION Status: Acute Current Visit: Yes (4) Tobacco dependence SNOMED Code(s): 43938005 Code(s): F17.200 - NICOTINE DEPENDENCE, UNSPECIFIED, UNCOMPLICATED Status: Chronic Current Visit: Yes (5) Morbid obesity SNOMED Code(s): 300942895 Code(s): E66.01 - MORBID (SEVERE) OBESITY DUE TO EXCESS CALORIES Status: Chronic Current Visit: Yes - Problem List Review Problem List Initiated/Reviewed/Updated: Yes - My Orders Last 24 Hours: My Active Orders 09/29/18 21:00 Melatonin 9 mg PO BEDTIME 10/01/18 05:00 BASIC METABOLIC PANEL,BMP [CHEM] Timed CBC W/O DIFF,HEMOGRAM [HEME] Timed (1) - Plan Plan:: ASSESSMENT AND PLAN - Bilateral pneumonia with sepsis - sepsis has resolved and he has been stable since extubation, now oxygenating well on room air. No pulmonary symptoms. -Supplemental oxygen as needed -Hold off on diuresis today -Scheduled and as needed nebulizers Generalized weakness - secondary to acute illness with pneumonia and sepsis. Requires significant assistance. Patient is interested in subacute rehabilitation and should be safe for discharge tomorrow. -Continue physical therapy Atrial fibrillation with rapid ventricular response - resolved. Tolerating metoprolol. -Metoprolol 25 mg twice a day, transition to long-acting version at the time of discharge Acute hypoxic and hypercapnic respiratory failure - secondary to pneumonia, now resolved. -Management as above COPD with acute exacerbation - resolved -Management as above Diarrhea - likely secondary to antibiotics, improving. -Imodium as needed -Probiotic twice daily Tobacco dependence - Patient is interested in remaining tobacco free. -Nicotine patch Morbid obesity - BMI greater than 50. Essential hypertension - lisinopril has been on hold since the time of admission. blood pressure acceptable at this time. -Continue metoprolol Maintenance issues - - DVT prophylaxis - enoxaparin - GI prophylaxis - PPI - Nutrition - regular diet - [place] catheter - removed Disposition - I would anticipate discharge to the halfway tomorrow Michael Roman M.D.
[2018-09-30] MEDS: Melatonin 3 MG Tab PO SCH (21:01)
[2018-10-01] MEDS: Acetaminophen 325 MG Tab PO PRN (01:39)
[2018-10-01] MEDS: Albuterol/Ipratropium 3.0-0.5 MG/3 ML Neb Soln NEB SCH ×2 (07:21→10:59)
[2018-10-01] MEDS: Pantoprazole 40 MG Tab.CR PO SCH (08:37)
[2018-10-01] MEDS: Lactobacillus Rhamnosus GG (Probiotic) Cap PO SCH (08:37)
[2018-10-01] MEDS: Magnesium Oxide 400 MG Tab PO SCH (08:38)
[2018-10-01] MEDS: Enoxaparin 40 MG/0.4 ML Syringe SUBCUT SCH (08:38)
[2018-10-01] MEDS: Nicotine 21 MG/24 Hr Patch TRDERM SCH (08:39)
[2018-10-01] MEDS ORDERED: Metoprolol Succinate 50 MG Tab.ER PO SCH (09:00)
--- NOTE | 2018-10-01 10:15 | PCM.DCSUM1 ---
Discharge Summary - Hospital Course Brief History: 62-year-old male with history of tobacco dependence, morbid obesity and non-oxygen dependent COPD who presented with rapidly progressive shortness of breath. Workup in the emergency room suggested acute COPD exacerbation with acute respiratory failure with hypoxia and hypercapnia as well as bilateral pneumonia. He was urgently intubated in the emergency room and admitted to the intensive care unit. Diagnosis: Stroke: No - Discharge Data Discharge Date: 10/01/18 Discharge Disposition: DC/Tfer to SNF 03 Condition: Fair - Discharge Diagnosis/Problem(s) (1) Bilateral pneumonia SNOMED Code(s): 091398094 ICD Code: J18.9 - PNEUMONIA, UNSPECIFIED ORGANISM Status: Acute Current Visit: Yes Qualifiers: Pneumonia type: due to unspecified organism Lung location: lower lobe of lung Qualified Code(s): J18.1 - Lobar pneumonia, unspecified organism (2) Acute respiratory failure with hypoxia and hypercapnia SNOMED Code(s): 507316093 ICD Code: J96.01 - ACUTE RESPIRATORY FAILURE WITH HYPOXIA; J96.02 - ACUTE RESPIRATORY FAILURE WITH HYPERCAPNIA Status: Acute Current Visit: Yes (3) COPD exacerbation SNOMED Code(s): 430424671 ICD Code: J44.1 - CHRONIC OBSTRUCTIVE PULMONARY DISEASE W (ACUTE) EXACERBATION Status: Acute Current Visit: Yes (4) Tobacco dependence SNOMED Code(s): 51009990 ICD Code: F17.200 - NICOTINE DEPENDENCE, UNSPECIFIED, UNCOMPLICATED Status : Chronic Current Visit: Yes (5) Morbid obesity SNOMED Code(s): 005815725 ICD Code: E66.01 - MORBID (SEVERE) OBESITY DUE TO EXCESS CALORIES Status: Chronic Current Visit: Yes - Patient Summary/Data Consults: Consultations 09/25/18 15:07 Consult to Physical Therapy [PT Evaluation and Treatment] [CONS] Routine Please Evaluate and Treat. PT Reason for Consult: Weakness This query below is only for informational purposes and is not editable. Admission Diagnosis/Problem: Acute bronchitis Hospital Course: Oren presented to the emergency room with rapidly progressive shortness of breath. Solu-Medrol and nebulizer treatments were ordered quickly. Blood gases were obtained which showed a moderately elevated PCO2 level and his supplemental oxygen was decreased. Despite this decrease his PCO2 went up. Invasive ventilation was ordered at this point but his mental status deteriorated fairly quickly and he required urgent intubation in the emergency room. An arterial line was placed in the emergency room. Chest x-ray was suggestive of a bilateral pneumonia. He was admitted to the intensive care unit for mechanical ventilation and management of the bilateral pneumonia with respiratory failure. Shortly after transfer to the intensive care unit he developed hypotension which necessitated extensive volume resuscitation. He received his 30 mL/kg bolus for management of sepsis and had stabilization of his blood pressures at that point. He was started on very broad-spectrum antibiotics at the time of admission as well as IV steroids. Over the next couple of days he achieved stability with blood pressures holding in the normal range and no additional boluses required. He did remain on fairly high PEEP as well as a moderately elevated PCO2. About 5 days into the hospital stay significant secretions seem to be hampering his improvement so Dr. Butt was consulted. He performed bronchoscopy on consecutive days with significant improvement in his secretions and his respiratory status. On 25 September he was successfully extubated. He did require noninvasive ventilation for a while after extubation. cultures from the bronchoscopy grew out staph hominis. Antibiotics were adjusted appropriately. Steroids were weaned down. On October 07 he had an episode of atrial fibrillation with rapid ventricular response. Initially diltiazem was started but this did not provide any benefit so he was changed to esmolol. This helped his rate down significantly and he did spontaneously convert back to normal sinus rhythm after being on the asthma well for a while. The esmolol was discontinued and he remained in sinus rhythm. He did remain in the intensive care unit for one additional day after the asthma was stopped. He's had no further episodes of atrial fibrillation. He was ordered like tachycardic I did start him on metoprolol to help with mild hypertension as well as the tachycardia and help avoid additional episodes of atrial fibrillation. His blood pressure has tolerated this medication well. He has been up on room air for several days. He has a mild residual cough but in general is doing quite well from a respiratory standpoint. He is very weak and would benefit from subacute rehabilitation. The morning before discharge he had an episode where he slipped trying to get to the bathroom and fell down landing on his backside. There were no injuries from the fall. He has no residual pain or evidence for injury. He will be discharged to the group home for subacute rehabilitation. He is stable and safe for transfer at this time. - Patient Instructions Diet: Regular Diet as Tolerated Activity: As Tolerated Showering/Bathing: May Shower Notify Provider of: Fever, Increased Pain, Nausea and/or Vomiting Other/Special Instructions: 1. You were in the hospital for management of bilateral pneumonia that caused a COPD exacerbation and acute respiratory failure. Your illness was severe enough that you required mechanical ventilation. You have completed an appropriate course of antibiotics and your condition has improved with management provided in the hospital. Because of the severity of your illness you have significant generalized weakness and I recommend subacute rehabilitation at the group home before returning home. 2. Stop taking your lisinopril. I have changed to a different blood pressure medication called metoprolol. You should take this medication once daily in the morning. 3. Referral to physical and occupational therapy for strengthening at the group home. 4. Code status - FULL CODE. 5. Seek medical attention if you have fever greater than 101, severe shortness of breath, persistent vomiting or severe diarrhea. - Discharge Plan *PRESCRIPTION DRUG MONITORING PROGRAM REVIEWED*: Not Applicable *COPY OF PRESCRIPTION DRUG MONITORING REPORT IN PATIENT RAJ: Not Applicable Prescriptions/Med Rec: Acetaminophen [Tylenol] 650 mg PO Q4H PRN #100 tablet PRN Reason: Pain/Fever Albuterol [Proventil HFA] 2 puff INH Q4H PRN #1 inhaler PRN Reason: Shortness Of Breath Albuterol/Ipratropium [DuoNeb 3.0-0.5 MG/3 ML] 3 ml INH TID #90 neb Lactobacillus Rhamnosus GG [Culturelle] 1 cap PO BID #30 cap Metoprolol Succinate [Toprol XL 50mg] 50 mg PO DAILY #30 tab.er Nicotine [Habitrol] 21 mg TRDERM DAILY #30 patch Home Medications: Home Meds Aspirin [Halfprin] 81 mg PO DAILY 09/18/18 [History] Budesonide/Formoterol [Symbicort 160-4.5 MCG] 2 puff INH BID 09/18/18 [History] Glucosamn/Condroitn/C/Mn/Allen [Cvs Glucosamine Chondroit Cplt] 1 tab PO DAILY 09/18/18 [History] Levothyroxine [Synthroid] 50 mcg PO DAILY 09/18/18 [History] Omeprazole Magnesium [Prilosec Otc] 20 mg PO DAILY 09/18/18 [History] Vitamin E 1,000 unit PO DAILY 09/18/18 [History] atorvaSTATin [Lipitor] 40 mg PO DAILY 09/18/18 [History] Acetaminophen [Tylenol] 650 mg PO Q4H PRN #100 tablet 10/01/18 [Rx] Albuterol [Proventil HFA] 2 puff INH Q4H PRN #1 inhaler 10/01/18 [Rx] Albuterol/Ipratropium [DuoNeb 3.0-0.5 MG/3 ML] 3 ml INH TID #90 neb 10/01/18 [Rx ] Lactobacillus Rhamnosus GG [Culturelle] 1 cap PO BID #30 cap 10/01/18 [Rx] Metoprolol Succinate [Toprol XL 50mg] 50 mg PO DAILY #30 tab.er 10/01/18 [Rx] Nicotine [Habitrol] 21 mg TRDERM DAILY #30 patch 10/01/18 [Rx] Oxygen Therapy Mode: Room Air Patient Handouts: Coping with Quitting Smoking, Chronic Obstructive Pulmonary Disease, [id number], Steps to Quit Smoking, Community-Acquired Pneumonia, Adult, [id number] Referrals: Zoila Sandra MD [Primary Care Provider] - (1-2 weeks - f/u hospital stay for pneumonia) - Discharge Summary/Plan Comment DC Time >30 min.: Yes (45 - new group home discharge) - Patient Data Vitals - Most Recent: Last Vital Signs Temp 36.5 C 10/01/18 07:00 Pulse 87 10/01/18 08:38 Resp 20 10/01/18 07:00 BP 136/74 10/01/18 08:38 Pulse Ox 100 10/01/18 07:00 Weight - Most Recent: 179.9 kg I&O - Last 24 hours: Intake & Output 09/30/18 10/01/18 10/01/18 22:59 06:59 14:59 Intake Total 800 240 Balance 800 240 Lab Results - Last 24 hrs: Laboratory Results - last 24 hr 10/01/18 10/01/18 Range/Units 05:54 05:54 WBC 12.3 H (4.5-11.0) K/uL RBC 4.15 L (4.30-5.90) M/uL Hgb 10.9 L (12.0-15.0) g/dL Hct 35.3 L (40.0-54.0) % MCV 85 (80-98) fL MCH 26 L (27-31) pg MCHC 31 L (32-36) % Plt Count 276 (150-400) K/uL Sodium 140 (140-148) mmol/L Potassium 3.9 (3.6-5.2) mmol/L Chloride 100 (100-108) mmol/L Carbon Dioxide 28 (21-32) mmol/L Anion Gap 12.0 (5.0-14.0) mmol/L BUN 40 H (7-18) mg/dL Creatinine 1.4 H (0.8-1.3) mg/dL Est Cr Clr Drug Dosing 60.90 mL/min Estimated GFR (MDRD) 52 L (>60) Glucose 129 H (74-106) mg/dL Calcium 8.9 (8.5-10.1) mg/dL Med Orders - Current: Current Medications Acetaminophen (Tylenol) 650 mg RECTAL Q4H PRN PRN Reason: Mild pain/fever Last Admin: 09/19/18 04:57 Dose: 650 mg Acetaminophen (Tylenol) 650 mg PO Q4H PRN PRN Reason: Pain Last Admin: 10/01/18 01:39 Dose: 650 mg Albuterol (Proventil Neb Soln) 2.5 mg NEB Q2H PRN PRN Reason: Shortness Of Breath/wheezing Last Admin: 09/19/18 23:53 Dose: 2.5 mg Albuterol/Ipratropium (Duoneb 3.0-0.5 Mg/3 Ml) 3 ml NEB QIDRT [facility] Last Admin: 10/01/18 07:21 Dose: 3 ml Calcium Carbonate/Glycine (Tums) 1,000 mg PO Q2H PRN PRN Reason: Indigestion Dimethicone/Zinc Oxide (Rash Relief-Zinc Oxide [place]) 0 gm TOP ASDIRECTED PRN PRN Reason: rash Last Admin: 09/25/18 15:52 Dose: 3 spray Enoxaparin Sodium (Lovenox) 40 mg SUBCUT DAILY [facility] Last Admin: 10/01/18 08:38 Dose: 40 mg Lactobacillus Rhamnosus (Culturelle) 1 cap PO BID [facility] Last Admin: 10/01/18 08:37 Dose: 1 cap Loperamide HCl (Imodium) 2 mg PO Q4H PRN PRN Reason: Diarrhea Last Admin: 09/26/18 14:46 Dose: 2 mg Magnesium Oxide (Magnesium Oxide) 400 mg PO BID [facility] Last Admin: 10/01/18 08:38 Dose: 400 mg Melatonin (Melatonin) 9 mg PO BEDTIME [facility] Last Admin: 09/30/18 21:01 Dose: 9 mg Metoprolol Succinate (Toprol Xl) 50 mg PO DAILY [facility] Last Admin: 10/01/18 08:38 Dose: 50 mg Nicotine (Habitrol) 21 mg TRDERM DAILY [facility] Last Admin: 10/01/18 08:39 Dose: 21 mg Ondansetron HCl (Zofran Odt) 4 mg PO Q6H PRN PRN Reason: Nausea able to take PO Ondansetron HCl (Zofran) 4 mg IV Q6H PRN PRN Reason: Nausea/Vomiting Pantoprazole Sodium (Protonix) 40 mg PO DAILY@0730 [facility] Last Admin: 10/01/18 08:37 Dose: 40 mg Sodium Chloride (Saline Flush) 10 ml FLUSH ASDIRECTED PRN PRN Reason: Keep Vein Open Last Admin: 09/18/18 14:07 Dose: 10 ml Discontinued Medications Acetaminophen (Tylenol Bulk Bottle) 650 mg PO Q4H PRN PRN Reason: Pain Acetylcysteine (Mucomyst 20%) 400 mg INH BIDRT [facility] Last Admin: 09/30/18 07:32 Dose: 400 mg Albuterol (Proventil Neb Soln) 2.5 mg NEB ONETIME ONE Stop: 09/18/18 13:51 Last Admin: 09/18/18 14:08 Dose: 2.5 mg Albuterol/Ipratropium (Duoneb 3.0-0.5 Mg/3 Ml) 3 ml NEB ONETIME ONE Stop: 09/18/18 13:26 Last Admin: 09/18/18 14:09 Dose: 3 ml Diltiazem HCl (Diltiazem) 20 mg IVPUSH ONETIME ONE Stop: 09/27/18 10:01 Last Admin: 09/27/18 09:48 Dose: 20 mg Furosemide (Lasix) 40 mg IVPUSH NOW ONE Stop: 09/18/18 16:46 Last Admin: 09/18/18 17:04 Dose: Not Given Furosemide (Lasix) 40 mg IVPUSH ONETIME ONE Stop: 09/21/18 09:56 Last Admin: 09/21/18 09:51 Dose: 40 mg Furosemide (Lasix) 20 mg IVPUSH ONETIME ONE Stop: 09/21/18 21:01 Last Admin: 09/21/18 20:23 Dose: 20 mg Furosemide (Lasix) 20 mg IVPUSH NOW ONE Stop: 09/22/18 10:16 Last Admin: 09/22/18 11:10 Dose: 20 mg Furosemide (Lasix) 20 mg IVPUSH NOW ONE Stop: 09/23/18 10:15 Last Admin: 09/23/18 10:51 Dose: 20 mg Furosemide (Lasix) 20 mg IVPUSH NOW ONE Stop: 09/24/18 10:16 Last Admin: 09/24/18 10:55 Dose: 20 mg Furosemide (Lasix) 20 mg IVPUSH NOW ONE Stop: 09/25/18 14:46 Last Admin: 09/25/18 16:05 Dose: 20 mg Furosemide (Lasix) 20 mg IVPUSH NOW ONE Stop: 09/26/18 08:22 Last Admin: 09/26/18 10:37 Dose: 20 mg Furosemide (Lasix) Confirm Administered Dose 20 mg .ROUTE .[facility] ONE Stop: 09/26/18 10:36 Last Admin: 09/26/18 10:41 Dose: Not Given Furosemide (Lasix) 40 mg IVPUSH NOW ONE Stop: 09/27/18 10:37 Last Admin: 09/27/18 11:38 Dose: 40 mg Furosemide (Lasix) 40 mg IVPUSH NOW ONE Stop: 09/28/18 08:32 Last Admin: 09/28/18 09:32 Dose: Not Given Furosemide (Lasix) 80 mg PO ONETIME ONE Stop: 09/28/18 10:01 Last Admin: 09/28/18 10:00 Dose: 80 mg Furosemide (Lasix) 40 mg IVPUSH ONETIME ONE Stop: 09/29/18 11:01 Last Admin: 09/29/18 12:53 Dose: 40 mg Sodium Chloride (Normal Saline) 250 mls @ 500 mls/hr IV ASDIRECTED [facility] Last Admin: 09/18/18 14:47 Dose: 500 mls/hr Heparin Sodium (Porcine) 5,000 (units/ Sodium Chloride) 501 mls @ 5 mls/hr IV ASDIRECTED [facility] Last Admin: 09/18/18 15:50 Dose: 5 mls/hr Ceftriaxone Sodium 2 gm/ (Sodium Chloride) 50 mls @ 100 mls/hr IV Q24H [facility] Levofloxacin/Dextrose 750 mg/ (Premix) 150 mls @ 100 mls/hr IV Q24H [facility] Last Admin: 09/25/18 16:39 Dose: 100 mls/hr Propofol (Diprivan 100 Ml) 100 mls @ 32.382 mls/hr IV TITRATE [facility]; Protocol Last Admin: 09/25/18 05:11 Dose: 25 mcg/kg/min, 26.985 mls/hr Sodium Chloride (Normal Saline) 1,000 mls @ 25 mls/hr IV ASDIRECTED [facility] Last Admin: 09/19/18 14:34 Dose: 25 mls/hr Piperacillin/Tazobactam/ (Dextrose 3.375 gm/ Premix) 50 mls @ 100 mls/hr IV Q6H [facility] Last Admin: 09/25/18 12:48 Dose: 100 mls/hr Sodium Chloride (Normal Saline) 1,000 mls @ 999 mls/hr IV ASDIRECTED [facility] Stop: 09/18/18 18:01 Last Admin: 09/18/18 18:42 Dose: 999 mls/hr Sodium Chloride (Normal Saline) 1,000 mls @ 999 mls/hr IV ASDIRECTED [facility] Stop: 09/18/18 18:16 Last Admin: 09/18/18 17:46 Dose: 999 mls/hr Sodium Chloride (Normal Saline) 1,000 mls @ 999 mls/hr IV ASDIRECTED [facility] Stop: 09/18/18 20:20 Vancomycin HCl 2 gm/ Sodium (Chloride) 250 mls @ 150 mls/hr IV Q12H [facility] Vancomycin HCl 1.5 gm/ Sodium (Chloride) 250 mls @ 150 mls/hr IV Q12H [facility] Last Admin: 09/22/18 21:26 Dose: 150 mls/hr Vancomycin HCl 2 gm/ Sodium (Chloride) 500 mls @ 250 mls/hr IV Q12H [facility] Last Admin: 09/18/18 18:57 Dose: 250 mls/hr Sodium Chloride (Normal Saline) 1,000 mls @ 100 mls/hr IV ASDIRECTED [facility] Last Admin: 09/20/18 20:23 Dose: 100 mls/hr Sodium Chloride (Normal Saline) 500 mls @ 500 mls/hr IV ASDIRECTED [facility] Stop: 09/19/18 10:16 Sodium Chloride (Normal Saline) 1,000 mls @ 12.5 mls/hr IV ASDIRECTED [facility] Last Admin: 09/21/18 15:48 Dose: 12.5 mls/hr Sodium Chloride (Normal Saline) 1,000 mls @ 12.5 mls/hr IV ASDIRECTED [facility] Last Admin: 09/23/18 01:10 Dose: 12.5 mls/hr Vancomycin HCl 1.25 gm/ Sodium (Chloride) 250 mls @ 167 mls/hr IV Q12H [facility] Last Admin: 09/25/18 10:31 Dose: 167 mls/hr Magnesium Sulfate 2 gm/ Premix 50 mls @ 25 mls/hr IV ONETIME ONE Stop: 09/24/18 10:59 Last Admin: 09/24/18 09:25 Dose: 25 mls/hr Potassium Chloride 20 meq/ (Premix) 100 mls @ 50 mls/hr IV Q2H [facility] Stop: 09/24/18 12:59 Last Admin: 09/24/18 11:57 Dose: 50 mls/hr Potassium Chloride 40 meq/ (Premix) 100 mls @ 25 mls/hr IV ONETIME ONE Stop: 09/26/18 13:29 Last Admin: 09/26/18 09:28 Dose: 25 mls/hr Diltiazem HCl 125 mg/ Sodium (Chloride) 125 mls @ 5 mls/hr IV TITRATE [facility]; Protocol Last Titration: 09/27/18 15:35 Dose: 5 mg/hr, 5 mls/hr Esmolol HCl (Esmolol Hcl In Sterile Water 2,500 Mg/250 Ml) 250 mls @ 53.97 mls/ hr IV TITRATE [facility]; Protocol Last Titration: 09/27/18 15:35 Dose: 25 mcg/kg/min, 26.985 mls/hr Lidocaine HCl (Xylocaine 2% Viscous) Confirm Administered Dose 15 ml .ROUTE .STK -MED ONE Stop: 09/23/18 06:46 Lidocaine HCl (Xylocaine 4% Top Soln) Confirm Administered Dose 50 ml .ROUTE .STK-MED ONE Stop: 09/23/18 06:46 Lidocaine HCl (Xylocaine 2% Viscous) Confirm Administered Dose 15 ml .ROUTE .STK -MED ONE Stop: 09/24/18 06:48 Last Admin: 09/24/18 07:25 Dose: 15 ml Lidocaine HCl (Xylocaine 4% Top Soln) Confirm Administered Dose 50 ml .ROUTE .STK-MED ONE Stop: 09/24/18 06:48 Last Admin: 09/24/18 07:49 Dose: 6 ml Methylprednisolone Sodium Succinate (Solu-Medrol) 125 mg IVPUSH ONETIME ONE Stop: 09/18/18 15:07 Last Admin: 09/18/18 15:50 Dose: 125 mg Methylprednisolone Sodium Succinate (Solu-Medrol) 62.5 mg IVPUSH Q8H [facility] Last Admin: 09/21/18 08:19 Dose: 62.5 mg Methylprednisolone Sodium Succinate (Solu-Medrol) 40 mg IV Q8H [facility] Last Admin: 09/22/18 08:03 Dose: 40 mg Methylprednisolone Sodium Succinate (Solu-Medrol) 40 mg IV Q12H [facility] Last Admin: 09/25/18 10:30 Dose: 40 mg Metoprolol Tartrate (Lopressor) 25 mg PO BID [facility] Stop: 09/30/18 23:30 Last Admin: 09/30/18 20:59 Dose: 25 mg Midazolam HCl (Versed 1 Mg/Ml) 4 mg IVPUSH ONETIME ONE Stop: 09/18/18 16:53 Last Admin: 09/18/18 16:59 Dose: 4 mg Midazolam HCl (Versed 1 Mg/Ml) 2 mg IVPUSH ASDIRECTED ONE Stop: 09/18/18 16:54 Last Admin: 09/19/18 14:30 Dose: Not Given Midazolam HCl (Versed 1 Mg/Ml) Confirm Administered Dose 4 mg .ROUTE .STK-MED ONE Stop: 09/18/18 16:54 Last Admin: 09/18/18 17:02 Dose: Not Given Midazolam HCl (Versed 1 Mg/Ml) 2 mg IVPUSH Q1H PRN PRN Reason: Agitation Last Admin: 09/20/18 23:41 Dose: 2 mg Midazolam HCl (Versed 1 Mg/Ml) 5 mg IVPUSH ONETIME ONE Stop: 09/23/18 06:40 Last Admin: 09/23/18 07:30 Dose: 5 mg Midazolam HCl (Versed 1 Mg/Ml) Confirm Administered Dose 5 mg .ROUTE .STK-MED ONE Stop: 09/23/18 07:23 Last Admin: 09/23/18 08:24 Dose: Not Given Midazolam HCl (Versed 1 Mg/Ml) 5 mg IV ASDIRECTED PRN PRN Reason: SEDATION FOR BRONCHOSCOPY Stop: 09/24/18 08:30 Last Admin: 09/24/18 07:12 Dose: 5 mg Morphine Sulfate (Morphine) 4 mg IV Q2H PRN PRN Reason: SEVERE PAIN (7-10) Last Admin: 09/24/18 02:24 Dose: 4 mg Nicotine (Habitrol) 21 mg TRDERM ONETIME ONE Stop: 09/20/18 16:54 Last Admin: 09/20/18 17:41 Dose: 21 mg Oxycodone HCl (Oxycodone) 5 mg PO Q4H PRN PRN Reason: Pain Last Admin: 09/26/18 04:19 Dose: 5 mg Pantoprazole Sodium (Protonix Iv) 40 mg IV Q24H [facility] Last Admin: 09/24/18 17:29 Dose: 40 mg Potassium Chloride (Klor-Con M20) 40 meq PO ONETIME ONE Stop: 09/26/18 08:31 Last Admin: 09/26/18 09:28 Dose: 40 meq Potassium Chloride (Klor-Con M20) 40 meq PO ONETIME ONE Stop: 09/27/18 09:01 Last Admin: 09/27/18 09:34 Dose: 40 meq Potassium Chloride (Klor-Con M20) 40 meq PO ONETIME ONE Stop: 09/27/18 17:01 Last Admin: 09/27/18 18:12 Dose: 40 meq Potassium Chloride (Klor-Con M20) 40 meq PO ONETIME ONE Stop: 09/28/18 09:01 Last Admin: 09/28/18 09:12 Dose: 40 meq Potassium Chloride (Klor-Con M20) 40 meq PO ONETIME ONE Stop: 09/28/18 17:01 Last Admin: 09/28/18 17:34 Dose: 40 meq Prednisone (Prednisone) 40 mg PO WITHBREAKFAST [facility] Last Admin: 09/27/18 08:59 Dose: 40 mg Propofol (Diprivan 20 Ml) Confirm Administered Dose 200 mg .ROUTE .STK-MED ONE Stop: 09/18/18 15:04 Succinylcholine Chloride (Quelicin) Confirm Administered Dose 200 mg .ROUTE .STK -MED ONE Stop: 09/18/18 15:04 Vancomycin HCl (Vancomycin) Confirm Administered Dose 2 gm .ROUTE .STK-MED ONE Stop: 09/18/18 18:40 Last Admin: 09/18/18 18:55 Dose: Not Given Zolpidem Tartrate (Ambien) 5 mg PO BEDTIME PRN PRN Reason: Insomnia Last Admin: 09/28/18 00:45 Dose: 5 mg - Exam Quality Assessment: Denies: Supplemental Oxygen General: Reports: Alert, Oriented, Cooperative, No Acute Distress Lungs: Reports: Normal Respiratory Effort GI/Abdominal Exam: Soft, No Distention Extremities: Pedal Edema Skin: Reports: Warm, Dry Psy/Mental Status: Reports: Alert, Normal Affect
== END 2018-10-01 12:40 | DRG 853 ==
LOC: JP.ED 13:19 → JP.ICU 15:07 → JP.ED 16:02 → JP.MS 09-29 14:36
PROVIDERS: ADMIT Internal Medicine; ATTEND Internal Medicine
PROC: 0BH17EZ Insertion of Endotracheal Airway into Trachea, Via Natural or Artificial Opening (ICD-10-PCS; principal; 2018-09-18)
PROC: 5A1955Z Respiratory Ventilation, Greater than 96 Consecutive Hours (ICD-10-PCS; 2018-09-18)
PROC: 03HC33Z Insertion of Infusion Device into Left Radial Artery, Percutaneous Approach (ICD-10-PCS; 2018-09-18)
PROC: 02HV33Z Insertion of Infusion Device into Superior Vena Cava, Percutaneous Approach (ICD-10-PCS; 2018-09-19)
PROC: B548ZZA Ultrasonography of Superior Vena Cava, Guidance (ICD-10-PCS; 2018-09-19)
PROC: 0B918ZZ Drainage of Trachea, Via Natural or Artificial Opening Endoscopic (ICD-10-PCS; 2018-09-23)
PROC: 0B978ZZ Drainage of Left Main Bronchus, Via Natural or Artificial Opening Endoscopic (ICD-10-PCS; 2018-09-23)
PROC: 0B9J8ZX Drainage of Left Lower Lung Lobe, Via Natural or Artificial Opening Endoscopic, Diagnostic (ICD-10-PCS; 2018-09-23)
PROC: 3E1F88Z Irrigation of Respiratory Tract using Irrigating Substance, Via Natural or Artificial Opening Endoscopic (ICD-10-PCS; 2018-09-23)
PROC: 0B918ZZ Drainage of Trachea, Via Natural or Artificial Opening Endoscopic (ICD-10-PCS; 2018-09-23)
PROC: 0B978ZZ Drainage of Left Main Bronchus, Via Natural or Artificial Opening Endoscopic (ICD-10-PCS; 2018-09-23)
PROC: 0B938ZZ Drainage of Right Main Bronchus, Via Natural or Artificial Opening Endoscopic (ICD-10-PCS; 2018-09-23)
PROC: 0B938ZZ Drainage of Right Main Bronchus, Via Natural or Artificial Opening Endoscopic (ICD-10-PCS; 2018-09-23)
PROC: 0B9M8ZZ Drainage of Bilateral Lungs, Via Natural or Artificial Opening Endoscopic (ICD-10-PCS; 2018-09-24)
DX: A41.9 Sepsis, unspecified organism (principal); J18.1 Lobar pneumonia, unspecified organism; A41.1 Sepsis due to other specified staphylococcus; J15.29 Pneumonia due to other staphylococcus; J96.01 Acute respiratory failure with hypoxia; J96.02 Acute respiratory failure with hypercapnia; J44.0 Chronic obstructive pulmonary disease with (acute) lower respiratory infection; J44.1 Chronic obstructive pulmonary disease with (acute) exacerbation; Z68.43 Body mass index [BMI] 50.0-59.9, adult; K52.1 Toxic gastroenteritis and colitis; R09.02 Hypoxemia; R06.02 Shortness of breath; F17.210 Nicotine dependence, cigarettes, uncomplicated; E66.01 Morbid (severe) obesity due to excess calories; R53.1 Weakness; I10 Essential (primary) hypertension; R65.20 Severe sepsis without septic shock; I48.91 Unspecified atrial fibrillation; I95.9 Hypotension, unspecified; T36.95XA Adverse effect of unspecified systemic antibiotic, initial encounter; Y92.230 Patient room in hospital as the place of occurrence of the external cause; W01.0XXA Fall on same level from slipping, tripping and stumbling without subsequent striking against object, initial encounter; K21.9 Gastro-esophageal reflux disease without esophagitis; Z79.82 Long term (current) use of aspirin; Z79.899 Other long term (current) drug therapy; Z88.8 Allergy status to other drugs, medicaments and biological substances
CPT/HCPCS: 31500; 36415; 36600 ×2; 36620; 51702; 71045 ×2; 80048; 82803 ×2; 83880; 85027; 85379; 94640 ×2; 94660; 96361; 99285 ×2; C1751; J0330; J2704; J7050; 36569; 71250; 71250-26; 80202; 81001; 82962; 83605; 83735; 84484; 85025; 86140; 87015; 87070; 87077; 87102; 87116; 87186; 87205; 87206; 87220; 88112; 88305; 93005; 94002; 94003; 94799; 96374; 96375; 97110-GP; 97162-GP; 97530-GP; A9270-GY; C9113; J1644; J1650; J1940; J1956; J2250; J2270; J2543; J2920; J2930; J3370; J3475; J3480; J3490; J7030; J7040; J7620-GY

== ENCOUNTER 2018-10-16 20:07 | Emergency (ER) | payer MEDICARE, MEDICAID ==
[2018-10-16] MEDS ORDERED: Sodium Chloride 0.9% 10 ML Syringe FLUSH PRN (20:14)
--- NOTE | 2018-10-16 20:17 | EDM.PDOC ---
ED HPI GENERAL MEDICAL PROBLEM - General Chief Complaint: Respiratory Problem Stated Complaint: MED VIA [facility] Time Seen by Provider: 10/16/18 20:10 Source of Information: Reports: Patient, EMS, Old Records, RN History Limitations: Reports: No Limitations - History of Present Illness INITIAL COMMENTS - FREE TEXT/NARRATIVE: 63 yo male here via EMS from a local [facility] for fever and SOB. Has a pHx of COPD. Oximeter readings per [facility] staff in the high 80's on 2 liters/nc. Temp 102F before acetaminophen. EMS reports also that he has had diarrhea all day, [facility] staff had not shared this fact over the phone. Onset: Today Onset Date: 10/16/18 Duration: Hour(s):, Constant Location: Reports: Generalized Quality: Reports: Other (no reported pain) Severity: Moderate Improves with: Reports: Rest Worsens with: Reports: Movement (exertion) Context: Reports: Other (see HPI) Associated Symptoms: Reports: Fever/Chills, Malaise, Shortness of Breath, Other (diarrhea). Denies: Rash Treatments CORDWAINER: Reports: Acetaminophen, Other (see below) (Maalox for heart burn.) - Related Data Allergies Allergy/AdvReac Type Severity Reaction Status Date / Time metformin Allergy Hives Verified 09/18/18 13:34 Home Meds: Home Meds Aspirin [Halfprin] 81 mg PO DAILY 09/18/18 [History] Budesonide/Formoterol [Symbicort 160-4.5 MCG] 2 puff INH BID 09/18/18 [History] Glucosamn/Condroitn/C/Mn/[place] [[facility] Glucosamine Chondroit Cplt] 1 tab PO DAILY 09/18/18 [History] Levothyroxine [Synthroid] 50 mcg PO DAILY 09/18/18 [History] Omeprazole Magnesium [Prilosec Otc] 20 mg PO DAILY 09/18/18 [History] Vitamin E 1,000 unit PO DAILY 09/18/18 [History] atorvaSTATin [Lipitor] 40 mg PO DAILY 09/18/18 [History] Acetaminophen [Tylenol] 650 mg PO Q4H PRN #100 tablet 10/01/18 [Rx] Albuterol [Proventil HFA] 2 puff INH Q4H PRN #1 inhaler 10/01/18 [Rx] Albuterol/Ipratropium [DuoNeb 3.0-0.5 MG/3 ML] 3 ml INH TID #90 neb 10/01/18 [Rx ] Lactobacillus Rhamnosus GG [Culturelle] 1 cap PO BID #30 cap 10/01/18 [Rx] Metoprolol Succinate [Toprol XL 50mg] 50 mg PO DAILY #30 tab.er 10/01/18 [Rx] Nicotine [Habitrol] 21 mg TRDERM DAILY #30 patch 10/01/18 [Rx] Past Medical History Cardiovascular History: Reports: Hypertension Respiratory History: Reports: Bronchitis, Recurrent Gastrointestinal History: Reports: GERD Musculoskeletal History: Reports: Arthritis Endocrine/Metabolic History: Reports: Obesity/BMI 30+ Social & Family History - Family History Family Medical History: Unobtainable - Caffeine Use Caffeine Use: Reports: None ED ROS GENERAL - Review of Systems Review Of Systems: See Below Constitutional: Reports: Fever, Chills, Malaise HEENT: Reports: No Symptoms Respiratory: Reports: Shortness of Breath. Denies: Sputum, Hemoptysis Cardiovascular: Reports: No Symptoms GI/Abdominal: Reports: Diarrhea. Denies: Black Stool, Bloody Stool, Constipation, Nausea, Vomiting : Reports: No Symptoms Musculoskeletal: Reports: No Symptoms Skin: Reports: No Symptoms Neurological: Reports: No Symptoms Psychiatric: Reports: No Symptoms ED EXAM, GENERAL - Physical Exam Exam: See Below Exam Limited By: No Limitations General Appearance: Alert, WD/WN, Mild Distress, Obese Eye Exam: Bilateral Eye: Normal Inspection Ears: Normal External Exam, Normal Canal, Hearing Grossly Normal, Normal TMs Ear Exam: Bilateral Ear: Auricle Normal, Canal Normal, TM normal Nose: Normal Inspection, Normal Mucosa, No Blood Throat/Mouth: Normal Inspection, Normal Lips, Normal Oropharynx, Normal Voice, No Airway Compromise, Other (edentulous) Head: Atraumatic, Normocephalic Neck: Normal Inspection Respiratory/Chest: No Accessory Muscle Use, Decreased Breath Sounds. No: Wheezing Cardiovascular: Regular Rate, Rhythm, Tachycardia GI/Abdominal: Normal Bowel Sounds, Soft, Non-Tender, No Distention Back Exam: Normal Inspection. No: CVA Tenderness (R), CVA Tenderness (L) Extremities: Normal Inspection, Normal Range of Motion, Non-Tender, Pedal Edema Neurological: Alert, Oriented, CN II-XII Intact, Normal Cognition, No Motor/ Sensory Deficits Psychiatric: Normal Affect, Normal Mood Skin Exam: Warm, Dry, Intact, Normal Color, No Rash Course - Vital Signs Last Recorded V/S: Last Vital Signs Temp 37.3 C 10/16/18 20:16 Pulse 111 H 10/16/18 20:40 Resp 34 H 10/16/18 20:40 BP 84/57 L 10/16/18 20:40 Pulse Ox 92 L 10/16/18 20:40 - Orders/Labs/Meds Orders: Active Orders 24 hr Category Date Time Status RT Aerosol Therapy [RC] ASDIRECTED Care 10/16/18 20:28 Active CULTURE BLOOD [BC] Stat Lab 10/16/18 20:20 Received CULTURE BLOOD [BC] Stat Lab 10/16/18 20:32 Received UA W/MICROSCOPIC [URIN] Stat Lab 10/16/18 20:12 Ordered Levofloxacin/Dextrose 5%-Water [Levaquin in D5W 750 MG/ Med 10/16/18 21:00 Ordered 150 ML] 750 mg Premix Bag 1 bag IV ONETIME Sodium Chloride 0.9% [Normal Saline] 1,000 ml Med 10/16/18 21:00 Ordered IV ASDIRECTED Sodium Chloride 0.9% [Saline Flush] Med 10/16/18 20:14 Active 10 ml FLUSH ASDIRECTED PRN Saline Lock Insert [OM.PC] Routine Oth 10/16/18 20:14 Ordered Medication Orders Levofloxacin/Dextrose 750 mg/ (Premix) 150 mls @ 100 mls/hr IV ONETIME ONE Stop: 10/16/18 22:29 Sodium Chloride (Normal Saline) 1,000 mls @ 1,000 mls/hr IV ASDIRECTED EVGENY Sodium Chloride (Saline Flush) 10 ml FLUSH ASDIRECTED PRN PRN Reason: Keep Vein Open Labs: Laboratory Tests 10/16/18 10/16/18 10/16/18 Range/Units 20:20 20:20 20:20 WBC 18.2 H (4.5-11.0) K/uL RBC 4.30 (4.30-5.90) M/uL Hgb 11.2 L (12.0-15.0) g/dL Hct 35.8 L (40.0-54.0) % MCV 83 (80-98) fL MCH 26 L (27-31) pg MCHC 31 L (32-36) % Plt Count 360 (150-400) K/uL Sodium 134 L (140-148) mmol/L Potassium 4.0 (3.6-5.2) mmol/L Chloride 96 L (100-108) mmol/L Carbon Dioxide 27 (21-32) mmol/L Anion Gap 15.0 H (5.0-14.0) mmol/L BUN 25 H (7-18) mg/dL Creatinine 1.3 (0.8-1.3) mg/dL Est Cr Clr Drug Dosing 64.67 mL/min Estimated GFR (MDRD) 56 L (>60) Glucose 214 H (74-106) mg/dL Lactic Acid 2.2 H (0.4-2.0) mmol/L Calcium 9.1 (8.5-10.1) mg/dL C-Reactive Protein 2.10 H (0.0-0.3) mg/dL Meds: Medications Generic Name Dose Route Start Last Admin Trade Name Freq PRN Reason Stop Dose Admin Levofloxacin/Dextrose 750 mg/ 150 mls @ 100 mls/hr 10/16/18 21:00 Premix IV 10/16/18 22:29 ONETIME ONE Sodium Chloride 1,000 mls @ 1,000 mls/hr 10/16/18 21:00 Normal Saline IV ASDIRECTED EVGENY Sodium Chloride 10 ml 10/16/18 20:14 Saline Flush FLUSH ASDIRECTED PRN Keep Vein Open Discontinued Medications Generic Name Dose Route Start Last Admin Trade Name Freq PRN Reason Stop Dose Admin Albuterol/Ipratropium 3 ml 10/16/18 20:28 Duoneb 3.0-0.5 Mg/3 Ml NEB 10/16/18 20:29 ONETIME ONE Diphenoxylate HCl/Atropine 2 tab 10/16/18 20:27 Lomotil 0.025-2.5 Mg PO 10/16/18 20:28 ONETIME ONE - Radiology Interpretation Free Text/Narrative:: CXR-suspected R perihilar and lower lobe infiltrates Departure - Departure Time of Disposition: 21:30 Disposition: Admitted As Inpatient 67 Condition: Poor Clinical Impression: Hypoxia Pneumonia Qualifiers: Pneumonia type: due to unspecified organism Laterality: right Lung location: lower lobe of lung Qualified Code(s): J18.1 - Lobar pneumonia, unspecified organism - Discharge Information *PRESCRIPTION DRUG MONITORING PROGRAM REVIEWED*: No *COPY OF PRESCRIPTION DRUG MONITORING REPORT IN PATIENT RAJ: No Referrals: Zoila Sandra MD [Primary Care Provider] - Forms: ED Department Discharge - My Orders Last 24 Hours: My Active Orders 10/16/18 20:12 UA W/MICROSCOPIC [URIN] Stat 10/16/18 20:14 Sodium Chloride 0.9% [Saline Flush] 10 ml FLUSH ASDIRECTED PRN Saline Lock Insert [OM.PC] Routine 10/16/18 20:20 CULTURE BLOOD [BC] Stat 10/16/18 20:28 RT Aerosol Therapy [RC] ASDIRECTED 10/16/18 20:32 CULTURE BLOOD [BC] Stat 10/16/18 21:00 Levofloxacin/Dextrose 5%-Water [Levaquin in D5W 750 MG/150 ML] 750 mg Premix Bag 1 bag IV ONETIME Sodium Chloride 0.9% [Normal Saline] 1,000 ml IV ASDIRECTED - Assessment/Plan Last 24 Hours: My Active Orders 10/16/18 20:12 UA W/MICROSCOPIC [URIN] Stat 10/16/18 20:14 Sodium Chloride 0.9% [Saline Flush] 10 ml FLUSH ASDIRECTED PRN Saline Lock Insert [OM.PC] Routine 10/16/18 20:20 CULTURE BLOOD [BC] Stat 10/16/18 20:28 RT Aerosol Therapy [RC] ASDIRECTED 10/16/18 20:32 CULTURE BLOOD [BC] Stat 10/16/18 21:00 Levofloxacin/Dextrose 5%-Water [Levaquin in D5W 750 MG/150 ML] 750 mg Premix Bag 1 bag IV ONETIME Sodium Chloride 0.9% [Normal Saline] 1,000 ml IV ASDIRECTED
[2018-10-16] MEDS ORDERED: Atropine/Diphenoxylate 0.025-2.5 MG Tab PO ONE (20:27)
[2018-10-16] MEDS ORDERED: Albuterol/Ipratropium 3.0-0.5 MG/3 ML Neb Soln NEB ONE (20:28)
--- NOTE | 2018-10-16 20:55 | CRLCR ---
INDICATION: Fever and shortness of breath TECHNIQUE: Chest 1 views COMPARISON: September 27, 2018 FINDINGS: Cardiovascular and mediastinum: Heart size and vasculature are normal in caliber and appearance. Lungs and pleural spaces: Ill-defined infiltrates are suspected in the right perihilar region and right lower lobe. Bibasilar scarring is also suspected. Upper lungs are clear. No significant effusion and no pneumothorax. Bones and soft tissues: No significant findings. IMPRESSION: Suspected right perihilar and lower lobe pneumonia. Dictated by: Brendan Bangura MD @ 10/16/2018 20:54:17 (Electronically Signed)
[2018-10-16] MEDS ORDERED: Sodium Chloride 0.9% 1,000 ML IV SCH ×2 (21:00→22:30)
[2018-10-16] MEDS ORDERED: Levofloxacin/Dextrose 5%-Water 750 MG in Premix Bag 1 BAG IV ONE (21:00)
== END 2018-10-16 22:30 ==
LOC: JP.ED 20:07
DX: J18.1 Lobar pneumonia, unspecified organism (principal); R09.02 Hypoxemia; I10 Essential (primary) hypertension; K21.9 Gastro-esophageal reflux disease without esophagitis; Z79.82 Long term (current) use of aspirin; Z79.899 Other long term (current) drug therapy; Z88.8 Allergy status to other drugs, medicaments and biological substances
CPT/HCPCS: 36415; 71045; 80048; 81001; 83605; 85027; 86140; 87040; 87804; 94640; 96365; 99285; A9270; J1956; J7030; J7620-GY

== ENCOUNTER 2019-01-18 16:50 | Inpatient (IN) | payer MEDICARE, MEDICAID ==
[2019-01-18] MEDS ORDERED: Sodium Chloride 0.9% 10 ML Syringe FLUSH PRN ×3 (16:52→20:54)
--- NOTE | 2019-01-18 17:31 | EDM.PDOC ---
ED HPI GENERAL MEDICAL PROBLEM - General Chief Complaint: General Stated Complaint: MEDICAL [facility]IA [facility] Time Seen by Provider: 01/18/19 16:52 Source of Information: Reports: Patient, Family, RN Notes Reviewed History Limitations: Reports: Respiratory Distress - History of Present Illness INITIAL COMMENTS - FREE TEXT/NARRATIVE: 63-year-old gentleman presents to the emergency department today via EMS services, he is a morbidly obese gentleman who has fallen a couple of days ago with a facial injury and head injury [place] the park today transferring to the toilet sudden onset of weakness fell to the ground with incontinence of stool EMS services were called. They did have difficulty because of his body habitus loading and transporting him to the emergency department while in route became more lethargic and weak, had slumped to the left side of the the gurney. He does have a known history of tobacco use and dependence was found to be hypoxic on scene was brought in maintaining O2 saturation 8 L simple mask. - Related Data Allergies Allergy/AdvReac Type Severity Reaction Status Date / Time metformin Allergy Hives Verified 01/18/19 18:30 Home Meds: Home Meds Aspirin [Halfprin] 81 mg PO DAILY 09/18/18 [History] Budesonide/Formoterol [Symbicort 160-4.5 MCG] 2 puff INH BID 09/18/18 [History] Glucosamn/Condroitn/C/Mn/[facility] [[facility] Glucosamine Chondroit Cplt] 1 tab PO DAILY 09/18/18 [History] Levothyroxine [Synthroid] 50 mcg PO DAILY 09/18/18 [History] Omeprazole Magnesium [Prilosec Otc] 20 mg PO DAILY 09/18/18 [History] Vitamin E 1,000 unit PO DAILY 09/18/18 [History] atorvaSTATin [Lipitor] 40 mg PO DAILY 09/18/18 [History] Acetaminophen [Tylenol] 650 mg PO Q4H PRN #100 tablet 10/01/18 [Rx] Albuterol [Proventil HFA] 2 puff INH Q4H PRN #1 inhaler 10/01/18 [Rx] Albuterol/Ipratropium [DuoNeb 3.0-0.5 MG/3 ML] 3 ml INH TID #90 neb 10/01/18 [Rx ] Nicotine [Habitrol] 21 mg TRDERM DAILY #30 patch 10/01/18 [Rx] Furosemide 40 mg PO DAILY 10/16/18 [History] Past Medical History Cardiovascular History: Reports: Hypertension Respiratory History: Reports: Bronchitis, Recurrent Gastrointestinal History: Reports: GERD Musculoskeletal History: Reports: Arthritis Endocrine/Metabolic History: Reports: Obesity/BMI 30+ - Infectious Disease History Infectious Disease History: Reports: Chicken Pox Social & Family History - Family History Family Medical History: Unobtainable - Tobacco Use Smoking Status *Q: Current Every Day Smoker - Caffeine Use Caffeine Use: Reports: None ED ROS GENERAL - Review of Systems Review Of Systems: Unable To Obtain (Secondary to respiratory failure) ED EXAM, GENERAL - Physical Exam Exam: See Below Free Text/Narrative:: Initial survey he is able to speak in limited 2 and 3 word sentences difficult to understand but does follow commands open eyes spontaneously GCS of 14, airway is maintaining at the moment but is of concern. Breath sounds are coarse bilaterally with tachypnea and shallow respirations. Cardiovascular demonstrates a tachycardic rate of S1 and S2 abdomen is obese but soft and nontender integument exam I do not appreciate any bruising or particular rash Exam Limited By: Respiratory Distress Course - Vital Signs Last Recorded V/S: Last Vital Signs Temp 98.1 F 01/18/19 17:40 Pulse 102 H 01/18/19 18:50 Resp 33 H 01/18/19 18:39 BP 77/56 L 01/18/19 18:50 Pulse Ox 34 L 01/18/19 18:39 - Orders/Labs/Meds Orders: Active Orders 24 hr Category Date Time Status EKG Documentation Completion [RC] ASDIRECTED Care 01/18/19 16:53 Active Peripheral IV Care [RC] . DIRECTED Care 01/18/19 16:53 Active RT BiPAP/CPAP [RC] ASDIRECTED Care 01/18/19 17:17 Active Chest 1V Frontal [CR] Urgent Exams 01/18/19 19:32 Ordered Max Facial Sinus wo Cont [CT] Stat Exams 01/18/19 16:54 Taken CULTURE BLOOD [BC] Urgent Lab 01/18/19 17:45 Received CULTURE BLOOD [BC] Urgent Lab 01/18/19 17:50 Received Levofloxacin/Dextrose 5%-Water [Levaquin in D5W 750 MG/ Med 01/18/19 18:37 Active 150 ML] 750 mg Premix Bag 1 bag IV ONETIME Norepinephrine [Levophed] 4 mg Med 01/18/19 19:15 Active Dextrose 5% in Water 246 ml IV TITRATE Sodium Chloride 0.9% [Saline Flush] Med 01/18/19 16:52 Active 10 ml FLUSH ASDIRECTED PRN Sodium Chloride 0.9% [Saline Flush] Med 01/18/19 16:52 Active 10 ml FLUSH ASDIRECTED PRN Blood Culture x2 Reflex Set [OM.PC] Urgent Oth 01/18/19 17:40 Ordered Peripheral IV Insertion Adult [OM.PC] Urgent Oth 01/18/19 16:52 Ordered EKG 12 Lead [EK] Urgent Ther 01/18/19 16:52 Ordered Medication Orders Levofloxacin/Dextrose 750 mg/ (Premix) 150 mls @ 100 mls/hr IV ONETIME ONE Stop: 01/18/19 20:06 Last Admin: 01/18/19 18:42 Dose: 100 mls/hr Norepinephrine Bitartrate 4 mg (/ Dextrose/Water) 250 mls @ 7.5 mls/hr IV TITRATE EVGENY; Protocol Last Admin: 01/18/19 19:14 Dose: 2 mcg/min, 7.5 mls/hr Sodium Chloride (Saline Flush) 10 ml FLUSH ASDIRECTED PRN PRN Reason: Keep Vein Open Last Admin: 01/18/19 17:26 Dose: 10 ml Sodium Chloride (Saline Flush) 10 ml FLUSH ASDIRECTED PRN PRN Reason: Keep Vein Open Last Admin: 01/18/19 17:27 Dose: 10 ml Labs: Laboratory Tests 01/18/19 01/18/19 01/18/19 Range/Units 16:52 16:52 16:52 WBC 19.2 H (4.5-11.0) K/uL RBC 4.32 (4.30-5.90) M/uL Hgb 11.5 L (12.0-15.0) g/dL Hct 36.1 L (40.0-54.0) % MCV 84 (80-98) fL MCH 27 (27-31) pg MCHC 32 (32-36) % Plt Count 275 (150-400) K/uL Add Manual Diff Yes Neutrophils % (Manual) 66 (36-66) % Band Neutrophils % 5 (5-11) % Lymphocytes % (Manual) 17 L (24-44) % Monocytes % (Manual) 9 H (2-6) % Eosinophils % (Manual) 1 L (2-4) % Basophils % (Manual) 2 H (0-1) % PT 10.3 (9.5-12.0) sec INR 0.93 (0.80-1.20) Puncture Site Rt radial ABG pH 7.219 L (7.350-7.450) ABG pCO2 73.8 H* (35.0-42.0) mmHg ABG pO2 108.0 H (75.0-100.0) mmHg ABG HCO3 29.0 H (22.0-26.0) mmol/L ABG Total CO2 27.6 H (23.0-27.0) mmol/L ABG O2 Saturation 97.4 (95.0-98.0) % ABG O2 Content 14.4 L (15.0-23.0) %vol ABG Base Excess 0.1 mm/L ABG Hemoglobin 11.5 L (13.5-18.0) g/dL ABG Oxyhemoglobin 87.8 % ABG Carboxyhemoglobin 9.0 H (0.0-1.6) % ABG Methemoglobin 0.9 % Ruddy Test Passed O2 Delivery Device Simple mask Oxygen Flow Rate 4 L Sodium (140-148) mmol/L Potassium (3.6-5.2) mmol/L Chloride (100-108) mmol/L Carbon Dioxide (21-32) mmol/L Anion Gap (5.0-14.0) mmol/L BUN (7-18) mg/dL Creatinine (0.8-1.3) mg/dL Est Cr Clr Drug Dosing mL/min Estimated GFR (MDRD) (>60) Glucose (74-106) mg/dL Lactic Acid (0.4-2.0) mmol/L Calcium (8.5-10.1) mg/dL Total Bilirubin (0.2-1.0) mg/dL AST (15-37) U/L ALT (12-78) U/L Alkaline Phosphatase (46-116) U/L Troponin I (0.000-0.056) ng/mL Total Protein (6.4-8.2) g/dL Albumin (3.4-5.0) g/dL Globulin (2.3-3.5) g/dL Albumin/Globulin Ratio (1.2-2.2) Ethyl Alcohol mg/dL 01/18/19 01/18/19 01/18/19 Range/Units 16:52 16:52 16:52 WBC (4.5-11.0) K/uL RBC (4.30-5.90) M/uL Hgb (12.0-15.0) g/dL Hct (40.0-54.0) % MCV (80-98) fL MCH (27-31) pg MCHC (32-36) % Plt Count (150-400) K/uL Add Manual Diff Neutrophils % (Manual) (36-66) % Band Neutrophils % (5-11) % Lymphocytes % (Manual) (24-44) % Monocytes % (Manual) (2-6) % Eosinophils % (Manual) (2-4) % Basophils % (Manual) (0-1) % PT (9.5-12.0) sec INR (0.80-1.20) Puncture Site ABG pH (7.350-7.450) ABG pCO2 (35.0-42.0) mmHg ABG pO2 (75.0-100.0) mmHg ABG HCO3 (22.0-26.0) mmol/L ABG Total CO2 (23.0-27.0) mmol/L ABG O2 Saturation (95.0-98.0) % ABG O2 Content (15.0-23.0) %vol ABG Base Excess mm/L ABG Hemoglobin (13.5-18.0) g/dL ABG Oxyhemoglobin % ABG Carboxyhemoglobin (0.0-1.6) % ABG Methemoglobin % Ruddy Test O2 Delivery Device Oxygen Flow Rate L Sodium 132 L (140-148) mmol/L Potassium 5.0 (3.6-5.2) mmol/L Chloride 96 L (100-108) mmol/L Carbon Dioxide 29 (21-32) mmol/L Anion Gap 12.0 (5.0-14.0) mmol/L BUN 49 H D (7-18) mg/dL Creatinine 1.6 H (0.8-1.3) mg/dL Est Cr Clr Drug Dosing 52.54 mL/min Estimated GFR (MDRD) 44 L (>60) Glucose 150 H (74-106) mg/dL Lactic Acid 0.7 (0.4-2.0) mmol/L Calcium 8.6 (8.5-10.1) mg/dL Total Bilirubin 0.2 (0.2-1.0) mg/dL AST 20 (15-37) U/L ALT 27 (12-78) U/L Alkaline Phosphatase 114 (46-116) U/L Troponin I < 0.017 (0.000-0.056) ng/mL Total Protein 8.1 (6.4-8.2) g/dL Albumin 3.2 L (3.4-5.0) g/dL Globulin 4.9 H (2.3-3.5) g/dL Albumin/Globulin Ratio 0.7 L (1.2-2.2) Ethyl Alcohol < 3 mg/dL 01/18/19 Range/Units 18:44 WBC (4.5-11.0) K/uL RBC (4.30-5.90) M/uL Hgb (12.0-15.0) g/dL Hct (40.0-54.0) % MCV (80-98) fL MCH (27-31) pg MCHC (32-36) % Plt Count (150-400) K/uL Add Manual Diff Neutrophils % (Manual) (36-66) % Band Neutrophils % (5-11) % Lymphocytes % (Manual) (24-44) % Monocytes % (Manual) (2-6) % Eosinophils % (Manual) (2-4) % Basophils % (Manual) (0-1) % PT (9.5-12.0) sec INR (0.80-1.20) Puncture Site Lt radial ABG pH 7.143 L* (7.350-7.450) ABG pCO2 96.0 H* (35.0-42.0) mmHg ABG pO2 73.6 L (75.0-100.0) mmHg ABG HCO3 31.5 H (22.0-26.0) mmol/L ABG Total CO2 30.6 H (23.0-27.0) mmol/L ABG O2 Saturation 91.2 L (95.0-98.0) % ABG O2 Content 13.8 L (15.0-23.0) %vol ABG Base Excess 0.2 mm/L ABG Hemoglobin 11.6 L (13.5-18.0) g/dL ABG Oxyhemoglobin 84.1 % ABG Carboxyhemoglobin 6.7 H (0.0-1.6) % ABG Methemoglobin 1.1 % Ruddy Test Passed O2 Delivery Device Bipap Oxygen Flow Rate L Sodium (140-148) mmol/L Potassium (3.6-5.2) mmol/L Chloride (100-108) mmol/L Carbon Dioxide (21-32) mmol/L Anion Gap (5.0-14.0) mmol/L BUN (7-18) mg/dL Creatinine (0.8-1.3) mg/dL Est Cr Clr Drug Dosing mL/min Estimated GFR (MDRD) (>60) Glucose (74-106) mg/dL Lactic Acid (0.4-2.0) mmol/L Calcium (8.5-10.1) mg/dL Total Bilirubin (0.2-1.0) mg/dL AST (15-37) U/L ALT (12-78) U/L Alkaline Phosphatase (46-116) U/L Troponin I (0.000-0.056) ng/mL Total Protein (6.4-8.2) g/dL Albumin (3.4-5.0) g/dL Globulin (2.3-3.5) g/dL Albumin/Globulin Ratio (1.2-2.2) Ethyl Alcohol mg/dL Meds: Medications Generic Name Dose Route Start Last Admin Trade Name Freq PRN Reason Stop Dose Admin Levofloxacin/Dextrose 750 mg/ 150 mls @ 100 mls/hr 01/18/19 18:37 01/18/19 18 :42 Premix IV 01/18/19 20:06 100 mls/hr ONETIME ONE Administration Norepinephrine Bitartrate 4 mg 250 mls @ 7.5 mls/hr 01/18/19 19:15 01/18/19 19:14 / Dextrose/Water IV 2 mcg/min TITRATE EVGENY 7.5 mls/hr Administration Protocol 2 MCG/MIN Sodium Chloride 10 ml 01/18/19 16:52 01/18/19 17:26 Saline Flush FLUSH 10 ml ASDIRECTED PRN Administration Keep Vein Open Sodium Chloride 10 ml 01/18/19 16:52 01/18/19 17:27 Saline Flush FLUSH 10 ml ASDIRECTED PRN Administration Keep Vein Open Discontinued Medications Generic Name Dose Route Start Last Admin Trade Name Mervat PRN Reason Stop Dose Admin Lactated Ringer's 1,000 mls @ 999 mls/hr 01/18/19 18:37 01/18/19 18:42 Ringers, Lactated IV 01/18/19 19:37 999 mls/hr BOLUS ONE Administration Lorazepam 1 mg 01/18/19 18:09 01/18/19 18:17 Ativan IVPUSH 01/18/19 18:10 1 mg ONETIME ONE Administration Propofol Confirm 01/18/19 19:39 Diprivan 20 Ml Administered 01/18/19 19:40 Dose 200 mg .ROUTE .STK-MED ONE Succinylcholine Chloride Confirm 01/18/19 19:39 Quelicin Administered 01/18/19 19:40 Dose 200 mg .ROUTE .STK-MED ONE Departure - Departure Time of Disposition: 19:44 Disposition: Admitted As Inpatient 67 Condition: Poor, Critical Clinical Impression: Sepsis Qualifiers: Sepsis type: sepsis due to unspecified organism Qualified Code(s): A41.9 - Sepsis, unspecified organism Pneumonia Qualifiers: Pneumonia type: due to unspecified organism Laterality: right Lung location: lower lobe of lung Qualified Code(s): J18.1 - Lobar pneumonia, unspecified organism - Discharge Information Referrals: PCP,None [Primary Care Provider] - Forms: ED Department Discharge - My Orders Last 24 Hours: My Active Orders 01/18/19 16:52 Sodium Chloride 0.9% [Saline Flush] 10 ml FLUSH ASDIRECTED PRN Sodium Chloride 0.9% [Saline Flush] 10 ml FLUSH ASDIRECTED PRN Peripheral IV Insertion Adult [OM.PC] Urgent EKG 12 Lead [EK] Urgent 01/18/19 16:53 EKG Documentation Completion [RC] ASDIRECTED Peripheral IV Care [RC] . DIRECTED 01/18/19 16:54 Max Facial Sinus wo Cont [CT] Stat 01/18/19 17:17 RT BiPAP/CPAP [RC] ASDIRECTED 01/18/19 17:40 Blood Culture x2 Reflex Set [OM.PC] Urgent 01/18/19 17:45 CULTURE BLOOD [BC] Urgent 01/18/19 17:50 CULTURE BLOOD [BC] Urgent 01/18/19 18:37 Levofloxacin/Dextrose 5%-Water [Levaquin in D5W 750 MG/150 ML] 750 mg Premix Bag 1 bag IV ONETIME 01/18/19 19:15 Norepinephrine [Levophed] 4 mg Dextrose 5% in Water 246 ml IV TITRATE 01/18/19 19:32 Chest 1V Frontal [CR] Urgent - Assessment/Plan Last 24 Hours: My Active Orders 01/18/19 16:52 Sodium Chloride 0.9% [Saline Flush] 10 ml FLUSH ASDIRECTED PRN Sodium Chloride 0.9% [Saline Flush] 10 ml FLUSH ASDIRECTED PRN Peripheral IV Insertion Adult [OM.PC] Urgent EKG 12 Lead [EK] Urgent 01/18/19 16:53 EKG Documentation Completion [RC] ASDIRECTED Peripheral IV Care [RC] . DIRECTED 01/18/19 16:54 Max Facial Sinus wo Cont [CT] Stat 01/18/19 17:17 RT BiPAP/CPAP [RC] ASDIRECTED 01/18/19 17:40 Blood Culture x2 Reflex Set [OM.PC] Urgent 01/18/19 17:45 CULTURE BLOOD [BC] Urgent 01/18/19 17:50 CULTURE BLOOD [BC] Urgent 01/18/19 18:37 Levofloxacin/Dextrose 5%-Water [Levaquin in D5W 750 MG/150 ML] 750 mg Premix Bag 1 bag IV ONETIME 01/18/19 19:15 Norepinephrine [Levophed] 4 mg Dextrose 5% in Water 246 ml IV TITRATE 01/18/19 19:32 Chest 1V Frontal [CR] Urgent Plan: Assessment Acuity = acute Site and laterality = community-acquired pneumonia with early sepsis complicated the patient with morbid obesity and heavy tobacco dependence Etiology = probable bacterial cause Manifestations = hypoxic with hypercapnia and respiratory failure Location of injury = Home Lab values = WBC elevated 19.2 consistent leukocytosis initial pH 7.2 PCO2 73.8 in the PO2 108 bicarbonate 29 initial trial of BiPAP showed a worsening pH is 7.1 and a PCO2 of 93 then elected to proceed to intubation. Creatinine elevated 1.6 consistent acute renal for stage G IIIB troponin is negative alcohol is negative chest x-ray shows atelectasis versus infiltrate portable difficult to interpret head CT shows no acute process Plan Called discussed case with hospitalist on-call at 1800 he agreed to come and evaluate the patient in the emergency department, did contact anesthesia at that time as well for help with intubation concern for difficult intubation given his body habitus. In the emergency department he has received antibiotic subliminal levofloxacin 1 L fluid, Levothroid drip was initiated to maintain blood pressure blood cultures are pending Critical care time 60 minutes This note was dictated using [employer] voice recognition software please call with any questions on syntax or grammar.
[2019-01-18] MEDS ORDERED: LORazepam 2 MG/ML SDV IVPUSH ONE (18:09)
[2019-01-18] MEDS ORDERED: Levofloxacin/Dextrose 5%-Water 750 MG in Premix Bag 1 BAG IV ONE (18:37)
--- NOTE | 2019-01-18 18:37 | CRLCR ---
Indication: Hypoxia Technique: Chest 1 view Comparison: None Findings/Impression: The patient`s face overlies lung apices. Visualized lung black demonstrate patchy bibasilar opacities which may be due to atelectasis or infection. There is cardiomegaly. No large pneumothorax or effusion. Pulmonary vasculature within normal limits. Consider repeat radiograph for better visualization of the lung apices. Dictated by Leanna Chen MD @ Jan 18 2019 6:34PM Signed by Dr. Leanna Chen @ Jan 18 2019 6:35PM
--- NOTE | 2019-01-18 18:41 | CRLCT ---
INDICATION: Head injury TECHNIQUE: Head CT without contrast. COMPARISON: None FINDINGS: CSF spaces: Within normal limits for age. Brain parenchyma: There are nonspecific low attenuation white matter changes consistent with chronic microvascular disease. No sign of mass, hemorrhage, or midline shift. Skull base and calvarium: The visualized paranasal sinuses and mastoid air cells demonstrate no acute or significant findings. The visualized orbits are grossly unremarkable. No skull fractures. There is intracranial atherosclerosis. IMPRESSION: 1. No acute findings. 2. Nonspecific white matter disease, typical of chronic microvascular disease. Please note that all CT scans at this facility use dose modulation, iterative reconstruction, and/or weight-based dosing when appropriate to reduce radiation dose to as low as reasonably achievable. Dictated by Leanna Chen MD @ Jan 18 2019 6:40PM Signed by Dr. Leanna Chen @ Jan 18 2019 6:40PM
[2019-01-18] MEDS: Lactated Ringers 1,000 ML IV ONE ×2 (18:42→21:50)
[2019-01-18] MEDS ORDERED: Norepinephrine 4 MG in Dextrose 5% in Water 246 ML IV SCH ×4 (19:15→20:54)
--- NOTE | 2019-01-18 19:16 | CRLCR ---
INDICATION: Right shoulder pain. COMPARISON: Chest radiograph January 18, 2019. TECHNIQUE: Two-view right shoulder. FINDINGS: No evidence of fracture. Difficult to rule out dislocation based on this radiographic examination. Infiltrates right lower lobe and left upper lobe. IMPRESSION: 1. No obvious fracture involving the right shoulder. 2. Difficult to rule out dislocation on this radiographic examination. 3. Infiltrates right lower lobe and left upper lobe. Dictated by Juli Tavera MD @ Jan 18 2019 7:12PM Signed by Dr. Juli Tavera @ Jan 18 2019 7:14PM
[2019-01-18] MEDS ORDERED: Propofol 200 MG/20 ML SDV ONE (19:39)
[2019-01-18] MEDS ORDERED: Succinylcholine 200 MG/10 ML MDV ONE (19:39)
--- NOTE | 2019-01-18 19:44 | CRLCT ---
INDICATION: Facial injury TECHNIQUE: CT maxillofacial without contrast. COMPARISON: None FINDINGS: Images are degraded by patient motion and rotation. Facial bones: No fractures or bone lesions. Specifically the nasal bones, temporomandibular joints, maxilla and mandible appear intact. Orbits and globes: Unremarkable. Globes are intact. No sign of intraorbital hemorrhage or emphysema. Sinuses: No acute or significant findings. Soft tissues: Unremarkable. IMPRESSION: Unremarkable exam. No sign of acute injury. However, assessment is limited by patient motion and rotation. Dictated by Brendan Bangura MD @ 01/18/2019 7:43:10 PM Please note that all CT scans at this facility use dose modulation, iterative reconstruction, and/or weight-based dosing when appropriate to reduce radiation dose to as low as reasonably achievable. Dictated by: Brendan Bangura MD @ 01/18/2019 19:43:18 (Electronically Signed)
[2019-01-18] MEDS ORDERED: Heparin Sodium 5,000 Units/ML Vial ONE (19:59)
[2019-01-18] MEDS ORDERED: Lactated Ringers 1,000 ML IV SCH ×2 (20:00→20:54)
--- NOTE | 2019-01-18 20:00 | PCM.HP ---
H&P History of Present Illness - General Date of Service: 01/18/19 Admit Problem/Dx: Admission Diagnosis/Problem Admission Diagnosis/Problem Pneumonia Source of Information: Family, Provider, RN Notes Reviewed. No: Patient History Limitations: Reports: Respiratory Distress (Intubation, mechanical ventilation) - History of Present Illness Initial Comments - Free Text/Narative: Mr. Hoskins is a 63-year-old gentleman who was admitted through the emergency department after collapsing this afternoon when he was with family. He is unable to provide meaningful history concerning recent symptoms or review of systems because of his respiratory failure and mechanical ventilation. He was brought into the emergency department and noted to have significant respiratory compromise with hypoxia and hypercapnia. He did receive a trial of noninvasive positive pressure ventilation which was unsuccessful, he has now been intubated and placed on mechanical ventilation. He had been acting more confused family notes over the past 48 hours, CT scan of the head shows no acute abnormalities. Chest x-ray shows bilateral infiltrates, atelectasis versus infection. He has been tachycardic and hypotensive while in the emergency department. He is received 1 L fluid bolus and because of persistent hypotension was started on IV norepinephrine. He had a very similar episode in August of this year that required intubation with mechanical ventilation and prolonged hospitalization. Family reports that his respiratory status has been declining over the past week where he has become more short of breath and lethargic. - Related Data Allergies/Adverse Reactions: Allergies Allergy/AdvReac Type Severity Reaction Status Date / Time metformin Allergy Hives Verified 01/18/19 18:30 Home Medications: Home Meds Aspirin [Halfprin] 81 mg PO DAILY 09/18/18 [History] Budesonide/Formoterol [Symbicort 160-4.5 MCG] 2 puff INH BID 09/18/18 [History] Glucosamn/Condroitn/C/Mn/Nickerson [Cvs Glucosamine Chondroit Cplt] 1 tab PO DAILY 09/18/18 [History] Levothyroxine [Synthroid] 50 mcg PO DAILY 09/18/18 [History] Omeprazole Magnesium [Prilosec Otc] 20 mg PO DAILY 09/18/18 [History] Vitamin E 1,000 unit PO DAILY 09/18/18 [History] atorvaSTATin [Lipitor] 40 mg PO DAILY 09/18/18 [History] Acetaminophen [Tylenol] 650 mg PO Q4H PRN #100 tablet 10/01/18 [Rx] Albuterol [Proventil HFA] 2 puff INH Q4H PRN #1 inhaler 10/01/18 [Rx] Albuterol/Ipratropium [DuoNeb 3.0-0.5 MG/3 ML] 3 ml INH TID #90 neb 10/01/18 [Rx ] Nicotine [Habitrol] 21 mg TRDERM DAILY #30 patch 10/01/18 [Rx] Furosemide 40 mg PO DAILY 10/16/18 [History] Past Medical History Cardiovascular History: Reports: Hypertension Respiratory History: Reports: Bronchitis, Recurrent Gastrointestinal History: Reports: GERD Musculoskeletal History: Reports: Arthritis Endocrine/Metabolic History: Reports: Obesity/BMI 30+ - Infectious Disease History Infectious Disease History: Reports: Chicken Pox Social & Family History - Family History Family Medical History: Unobtainable - Tobacco Use Smoking Status *Q: Current Every Day Smoker Years of Tobacco use: 40 Packs/Tins Daily: 1 - Caffeine Use Caffeine Use: Reports: None H&P Review of Systems - Review of Systems: Review Of Systems: Unable To Obtain General: Reports: ROS unobtainable (Severe respiratory compromise, intubation, mechanical ventilation, sedation) Exam - Exam Exam: See Below - Vital Signs Vital Signs: Last Vital Signs Temp 98.1 F 01/18/19 17:40 Pulse 102 H 01/18/19 18:50 Resp 33 H 01/18/19 18:39 BP 77/56 L 01/18/19 18:50 Pulse Ox 34 L 01/18/19 18:39 Weight: 398 lb - Exam Quality Assessment: Supplemental Oxygen (Intubation with mechanical ventilation) , Urinary Catheter, DVT Prophylaxis General: Severe Distress, Sedated, Lethargic HEENT: Conjunctiva Clear, Normal Nasal Septum, Posterior Pharynx Clear, Pupils Equal, Pupils Reactive Neck: Supple, Trachea Midline, +2 Carotid Pulse wo Bruit Lungs: Decreased Breath Sounds, Rhonchi, Wheezing. No: Rales, Rub Cardiovascular: Regular Rhythm, Normal S1, Normal S2, Tachycardia. No: Systolic Murmur, Diastolic Murmur GI/Abdominal Exam: Soft, Non-Tender, No Organomegaly, No Distention Extremities: Non-Tender, Pedal Edema Skin: Warm, Dry, Intact - Patient Data Lab Results Last 24 hrs: Laboratory Results - last 24 hr 01/18/19 01/18/19 01/18/19 Range/Units 16:52 16:52 16:52 WBC 19.2 H (4.5-11.0) K/uL RBC 4.32 (4.30-5.90) M/uL Hgb 11.5 L (12.0-15.0) g/dL Hct 36.1 L (40.0-54.0) % MCV 84 (80-98) fL MCH 27 (27-31) pg MCHC 32 (32-36) % Plt Count 275 (150-400) K/uL Add Manual Diff Yes Neutrophils % (Manual) 66 (36-66) % Band Neutrophils % 5 (5-11) % Lymphocytes % (Manual) 17 L (24-44) % Monocytes % (Manual) 9 H (2-6) % Eosinophils % (Manual) 1 L (2-4) % Basophils % (Manual) 2 H (0-1) % PT 10.3 (9.5-12.0) sec INR 0.93 (0.80-1.20) Puncture Site Rt radial ABG pH 7.219 L (7.350-7.450) ABG pCO2 73.8 H* (35.0-42.0) mmHg ABG pO2 108.0 H (75.0-100.0) mmHg ABG HCO3 29.0 H (22.0-26.0) mmol/L ABG Total CO2 27.6 H (23.0-27.0) mmol/L ABG O2 Saturation 97.4 (95.0-98.0) % ABG O2 Content 14.4 L (15.0-23.0) %vol ABG Base Excess 0.1 mm/L ABG Hemoglobin 11.5 L (13.5-18.0) g/dL ABG Oxyhemoglobin 87.8 % ABG Carboxyhemoglobin 9.0 H (0.0-1.6) % ABG Methemoglobin 0.9 % Ruddy Test Passed O2 Delivery Device Simple mask Oxygen Flow Rate 4 L Sodium (140-148) mmol/L Potassium (3.6-5.2) mmol/L Chloride (100-108) mmol/L Carbon Dioxide (21-32) mmol/L Anion Gap (5.0-14.0) mmol/L BUN (7-18) mg/dL Creatinine (0.8-1.3) mg/dL Est Cr Clr Drug Dosing mL/min Estimated GFR (MDRD) (>60) Glucose (74-106) mg/dL Lactic Acid (0.4-2.0) mmol/L Calcium (8.5-10.1) mg/dL Total Bilirubin (0.2-1.0) mg/dL AST (15-37) U/L ALT (12-78) U/L Alkaline Phosphatase (46-116) U/L Troponin I (0.000-0.056) ng/mL Total Protein (6.4-8.2) g/dL Albumin (3.4-5.0) g/dL Globulin (2.3-3.5) g/dL Albumin/Globulin Ratio (1.2-2.2) Ethyl Alcohol mg/dL 01/18/19 01/18/19 01/18/19 Range/Units 16:52 16:52 16:52 WBC (4.5-11.0) K/uL RBC (4.30-5.90) M/uL Hgb (12.0-15.0) g/dL Hct (40.0-54.0) % MCV (80-98) fL MCH (27-31) pg MCHC (32-36) % Plt Count (150-400) K/uL Add Manual Diff Neutrophils % (Manual) (36-66) % Band Neutrophils % (5-11) % Lymphocytes % (Manual) (24-44) % Monocytes % (Manual) (2-6) % Eosinophils % (Manual) (2-4) % Basophils % (Manual) (0-1) % PT (9.5-12.0) sec INR (0.80-1.20) Puncture Site ABG pH (7.350-7.450) ABG pCO2 (35.0-42.0) mmHg ABG pO2 (75.0-100.0) mmHg ABG HCO3 (22.0-26.0) mmol/L ABG Total CO2 (23.0-27.0) mmol/L ABG O2 Saturation (95.0-98.0) % ABG O2 Content (15.0-23.0) %vol ABG Base Excess mm/L ABG Hemoglobin (13.5-18.0) g/dL ABG Oxyhemoglobin % ABG Carboxyhemoglobin (0.0-1.6) % ABG Methemoglobin % Ruddy Test O2 Delivery Device Oxygen Flow Rate L Sodium 132 L (140-148) mmol/L Potassium 5.0 (3.6-5.2) mmol/L Chloride 96 L (100-108) mmol/L Carbon Dioxide 29 (21-32) mmol/L Anion Gap 12.0 (5.0-14.0) mmol/L BUN 49 H D (7-18) mg/dL Creatinine 1.6 H (0.8-1.3) mg/dL Est Cr Clr Drug Dosing 52.54 mL/min Estimated GFR (MDRD) 44 L (>60) Glucose 150 H (74-106) mg/dL Lactic Acid 0.7 (0.4-2.0) mmol/L Calcium 8.6 (8.5-10.1) mg/dL Total Bilirubin 0.2 (0.2-1.0) mg/dL AST 20 (15-37) U/L ALT 27 (12-78) U/L Alkaline Phosphatase 114 (46-116) U/L Troponin I < 0.017 (0.000-0.056) ng/mL Total Protein 8.1 (6.4-8.2) g/dL Albumin 3.2 L (3.4-5.0) g/dL Globulin 4.9 H (2.3-3.5) g/dL Albumin/Globulin Ratio 0.7 L (1.2-2.2) Ethyl Alcohol < 3 mg/dL 01/18/19 Range/Units 18:44 WBC (4.5-11.0) K/uL RBC (4.30-5.90) M/uL Hgb (12.0-15.0) g/dL Hct (40.0-54.0) % MCV (80-98) fL MCH (27-31) pg MCHC (32-36) % Plt Count (150-400) K/uL Add Manual Diff Neutrophils % (Manual) (36-66) % Band Neutrophils % (5-11) % Lymphocytes % (Manual) (24-44) % Monocytes % (Manual) (2-6) % Eosinophils % (Manual) (2-4) % Basophils % (Manual) (0-1) % PT (9.5-12.0) sec INR (0.80-1.20) Puncture Site Lt radial ABG pH 7.143 L* (7.350-7.450) ABG pCO2 96.0 H* (35.0-42.0) mmHg ABG pO2 73.6 L (75.0-100.0) mmHg ABG HCO3 31.5 H (22.0-26.0) mmol/L ABG Total CO2 30.6 H (23.0-27.0) mmol/L ABG O2 Saturation 91.2 L (95.0-98.0) % ABG O2 Content 13.8 L (15.0-23.0) %vol ABG Base Excess 0.2 mm/L ABG Hemoglobin 11.6 L (13.5-18.0) g/dL ABG Oxyhemoglobin 84.1 % ABG Carboxyhemoglobin 6.7 H (0.0-1.6) % ABG Methemoglobin 1.1 % Ruddy Test Passed O2 Delivery Device Bipap Oxygen Flow Rate L Sodium (140-148) mmol/L Potassium (3.6-5.2) mmol/L Chloride (100-108) mmol/L Carbon Dioxide (21-32) mmol/L Anion Gap (5.0-14.0) mmol/L BUN (7-18) mg/dL Creatinine (0.8-1.3) mg/dL Est Cr Clr Drug Dosing mL/min Estimated GFR (MDRD) (>60) Glucose (74-106) mg/dL Lactic Acid (0.4-2.0) mmol/L Calcium (8.5-10.1) mg/dL Total Bilirubin (0.2-1.0) mg/dL AST (15-37) U/L ALT (12-78) U/L Alkaline Phosphatase (46-116) U/L Troponin I (0.000-0.056) ng/mL Total Protein (6.4-8.2) g/dL Albumin (3.4-5.0) g/dL Globulin (2.3-3.5) g/dL Albumin/Globulin Ratio (1.2-2.2) Ethyl Alcohol mg/dL Result Diagrams: 01/18/19 16:52 01/18/19 16:52 *Q Meaningful Use (ADM) - VTE Risk Assess *Q Each Risk Factor Represents 1 Point: Swollen Legs, Current, Obesity ( BMI > 25 kg/m2), Sepsis, Serious lung disease including pneumonia, Abnormal Pulmonary Function (COPD) Total Score 1 Point Risk Factors: 5 Each Risk Factor Represents 2 Points: Age 60 - 74 Years Total Score 2 Point Risk Factors: 2 Each Risk Factor Represents 3 Points: None Total Score 3 Point Risk Factors: 0 Each Risk Factor Represents 5 Points: None Total Score 5 Point Risk Factors: 0 Venous Thromboembolism Risk Factor Score *Q: 7 Problem List Initiated/Reviewed/Updated: Yes Orders Last 24hrs: Active Orders 24 hr Category Date Time Status Patient Status Manage Transfer [TRANSFER] Routine ADT 01/18/19 19:28 Active EKG Documentation Completion [RC] ASDIRECTED Care 01/18/19 16:53 Active Peripheral IV Care [RC] . DIRECTED Care 01/18/19 16:53 Active RT BiPAP/CPAP [RC] ASDIRECTED Care 01/18/19 17:17 Active Chest 1V Frontal [CR] Urgent Exams 01/18/19 19:32 Taken BLOOD GAS ARTERIAL [BG] Stat Lab 01/18/19 21:00 Ordered CULTURE BLOOD [BC] Urgent Lab 01/18/19 17:45 Received CULTURE BLOOD [BC] Urgent Lab 01/18/19 17:50 Received Lactated Ringers [Ringers, Lactated] 1,000 ml Med 01/18/19 20:00 Ordered IV ASDIRECTED Levofloxacin/Dextrose 5%-Water [Levaquin in D5W 750 MG/ Med 01/18/19 18:37 Active 150 ML] 750 mg Premix Bag 1 bag IV ONETIME Norepinephrine [Levophed] 4 mg Med 01/18/19 19:15 Active Dextrose 5% in Water 246 ml IV TITRATE Sodium Chloride 0.9% [Saline Flush] Med 01/18/19 16:52 Active 10 ml FLUSH ASDIRECTED PRN Sodium Chloride 0.9% [Saline Flush] Med 01/18/19 16:52 Active 10 ml FLUSH ASDIRECTED PRN Blood Culture x2 Reflex Set [OM.PC] Urgent Oth 01/18/19 17:40 Ordered Peripheral IV Insertion Adult [OM.PC] Urgent Oth 01/18/19 16:52 Ordered Resuscitation Status Routine Resus Stat 01/18/19 19:32 Ordered EKG 12 Lead [EK] Urgent Ther 01/18/19 16:52 Ordered Medication Orders Levofloxacin/Dextrose 750 mg/ (Premix) 150 mls @ 100 mls/hr IV ONETIME ONE Stop: 01/18/19 20:06 Last Admin: 01/18/19 18:42 Dose: 100 mls/hr Norepinephrine Bitartrate 4 mg (/ Dextrose/Water) 250 mls @ 7.5 mls/hr IV TITRATE EVGENY; Protocol Last Admin: 01/18/19 19:14 Dose: 2 mcg/min, 7.5 mls/hr Lactated Ringer's (Ringers, Lactated) 1,000 mls @ 1,000 mls/hr IV ASDIRECTED EVGENY Stop: 01/18/19 21:01 Sodium Chloride (Saline Flush) 10 ml FLUSH ASDIRECTED PRN PRN Reason: Keep Vein Open Last Admin: 01/18/19 17:26 Dose: 10 ml Sodium Chloride (Saline Flush) 10 ml FLUSH ASDIRECTED PRN PRN Reason: Keep Vein Open Last Admin: 01/18/19 17:27 Dose: 10 ml Assessment/Plan Comment:: ASSESSMENT AND PLAN PNEUMONIA WITH SEPTIC SHOCK-history of progressive respiratory compromise over the past several days, presented with hypoxic and hypercapnic respiratory failure. White blood cell count is elevated, chest x-ray shows evidence of bilateral infiltrates. He has been hypotensive and tachycardic while in the emergency department. He has received 1 L of IV fluids and a second liter has been ordered. IV norepinephrine was initiated in the emergency department because of persistent hypotension despite IV fluids. -Blood and sputum cultures pending -Further aggressive IV fluid replacement per sepsis protocol -Continue IV norepinephrine -IV steroids -IV antibiotic therapy; azithromycin, vancomycin, Zosyn, pending culture results HYPOXIC AND HYPERCAPNIC RESPIRATORY FAILURE-secondary to pneumonia and underlying COPD -Intubation and mechanical ventilation; AC of 16, tidal volume 550, PEEP 5, FiO2 of 70% -Follow blood gases after 1 hour on ventilator -Nebulized albuterol and DuoNeb's -Solu-Medrol 40 mg IV every 6 hours -Daily chest x-ray -Consult Dr. Butt for diagnostic and therapeutic bronchoscopy in a.m. COPD-he may also have a component of obesity related hypoventilation -Management as above CHRONIC KIDNEY DISEASE STAGE III -Sauceda catheter to closely monitor urine output -Follow-up labs for renal function in a.m. [employer] OBESITY MAINTENANCE ISSUES -DVT prophylaxis; Lovenox 40 mg subcutaneous daily -GI prophylaxis; Protonix 40 mg IV daily -Sauceda catheter; placed to closely monitor urine output -Nutrition; nothing by mouth -Nicotine dependence; not required CODE STATUS-FULL CODE ADMISSION STATUS-patient will be admitted to inpatient status, expect at least a 2 night hospital stay for evaluation and management of problems as outlined above. At the time of this admission I do not reasonably expected evaluation and management of this problem will require more than a 96 hour hospital stay. DISPOSITION-anticipate discharge to home after the hospital stay. PRIMARY CARE PROVIDER-Dr. Hall 90 minutes of critical care time were spent in the direct management of this patient in the emergency department and ICU
--- NOTE | 2019-01-18 20:01 | CRLCR ---
Indication: Tube placement Technique: Chest 1 view Comparison: Same date at 5:35 p.m. Findings/Impression: The right costophrenic angles excluded from the study on the basis of patient positioning. Interval placement of endotracheal tube with tip terminating in 6.8 cm above the level of the mayra. Stable cardiac size. No pneumothorax. Patchy right perihilar and bibasilar opacities are concerning for infection versus atelectasis. Dictated by Leanna Chen MD @ Jan 18 2019 7:57PM Signed by Dr. Leanna hCen @ Jan 18 2019 7:59PM
[2019-01-18] MEDS ORDERED: [UNRECOGNIZED DRUG - REMARK] IV SCH (20:54)
[2019-01-18] MEDS ORDERED: Albuterol 0.083% 2.5 MG/3 ML Neb Soln NEB PRN (20:54)
[2019-01-18] MEDS ORDERED: Pantoprazole 40 MG Vial IVPUSH SCH (20:54)
[2019-01-18] MEDS ORDERED: Ondansetron 4 MG/2 ML SDV IV PRN (20:54)
[2019-01-18] MEDS ORDERED: Fluticasone-Salmeterol 232-14 MCG Powder Inhalent INH SCH (21:00)
--- NOTE | 2019-01-18 21:40 | CRLCR ---
Indication: Respiratory failure Technique: Chest 1 view Comparison: January 18, 2019 at 7:40 p.m.. Findings/Impression: The costophrenic angles are excluded from the study on the basis of patient positioning. Endotracheal tube tip terminates 5.5 cm above the level of the mayra. Unchanged bibasilar and right perihilar opacities. No pneumothorax. Stable cardiac size. Dictated by Leanna Chen MD @ Jan 18 2019 9:38PM Signed by Dr. Leanna Chen @ Jan 18 2019 9:39PM
[2019-01-18] MEDS: Azithromycin 500 MG in Sodium Chloride 0.9% 250 ML IV SCH (21:48)
[2019-01-18] MEDS ORDERED: Lactated Ringers 1,000 ML IV ONE (21:51)
[2019-01-18] MEDS ORDERED: Sodium Chloride 0.9% 500 ML IV ONE (21:54)
[2019-01-18] MEDS ORDERED: Albuterol/Ipratropium 3.0-0.5 MG/3 ML Neb Soln NEB SCH (22:00)
[2019-01-18] MEDS: Enoxaparin 40 MG/0.4 ML Syringe SUBCUT SCH (22:00)
[2019-01-18] MEDS: methylPREDNISolone Sodium Succinate 40 MG/1 ML SDV IVPUSH SCH (22:03)
[2019-01-18] MEDS: Sodium Chloride 0.9% 1,000 ML IV SCH (22:16)
--- NOTE | 2019-01-18 22:21 | ANES ---
DATE OF SERVICE: 01/18/2019 I was called to the emergency room by Officer to evaluate Mr. Hoskins for an intubation. He was on a BiPAP machine and not doing very well and his end-tidal CO2 has been rising rapidly. The patient was nonresponsive but kind of thrashing around, so I therefore gave him 200 mg propofol along with 150 mg of succinylcholine. A 3 MAC was inserted and had a grade 1 view and 8.0 endotracheal tube was inserted into the trachea. He had bilateral breath sounds which were equal and positive, and there was positive end-tidal CO2. The endotracheal tube was then secured by the respiratory therapy staff, and the patient was transferred to the intensive care unit. I then put a right radial 20-gauge arrow catheter with ease. It was sutured with 2-0 Prolene and then Tegaderm tape were placed for dressing. Had good waveform and good blood return. Edwin Austin CRNA /[id number]
[2019-01-18] MEDS: Piperacillin/Tazobactam 3.375 GM in Sodium Chloride 0.9% 50 ML IV SCH (22:53)
[2019-01-19] MEDS ORDERED: Nystatin Topical Powder 15 GM Bottle ONE (00:37)
[2019-01-19] MEDS: methylPREDNISolone Sodium Succinate 40 MG/1 ML SDV IVPUSH SCH ×4 (02:59→21:00)
[2019-01-19] MEDS: Piperacillin/Tazobactam 3.375 GM in Sodium Chloride 0.9% 50 ML IV SCH (03:00)
--- NOTE | 2019-01-19 04:11 | CRLCR ---
INDICATION: Intubated respiratory failure TECHNIQUE: Chest radiograph 1 view COMPARISON: 01/18/2019 FINDINGS: Mediastinum: The mediastinum is normal in appearance. The heart silhouette is normal in size and morphology. ET tube has its tip 6.5 cm from the mayra. Lung: Improved aeration of the right lung base is present with decreased airspace infiltrates. Patchy consolidation left lung base is noted without significant interval change. No pneumothorax is identified. Musculoskeletal: Unremarkable for age. IMPRESSION: 1. Improved aeration of the right lung base is present with decreased airspace infiltrates. Patchy consolidation left lung base is noted without significant interval change. Dictated by Neel Paul MD @ 01/19/2019 4:09:47 AM Dictated by: Neel Paul MD @ 01/19/2019 04:09:51 (Electronically Signed)
[2019-01-19] MEDS ORDERED: Nystatin Topical Powder 15 GM Bottle TOP SCH (06:00)
[2019-01-19] MEDS ORDERED: Lidocaine 2% Viscous Solution 15 ML Cup ONE (06:46)
[2019-01-19] MEDS ORDERED: Lidocaine 4% Top Soln 50 ML Bottle ONE (06:46)
[2019-01-19] MEDS: Albuterol/Ipratropium 3.0-0.5 MG/3 ML Neb Soln NEB SCH ×4 (07:10→20:56)
[2019-01-19] MEDS ORDERED: Albuterol/Ipratropium 3.0-0.5 MG/3 ML Neb Soln INH PRN (08:20)
[2019-01-19] MEDS: Piperacillin/Tazobactam/Dext 3.375 GM in Premix Bag 1 BAG IV SCH ×3 (08:35→20:58)
[2019-01-19] MEDS: Acetylcysteine 20% 200 MG/ML 4 ML Nebulizer Soln SDV INH SCH ×2 (09:09→20:56)
[2019-01-19] MEDS ORDERED: Albuterol 0.083% 2.5 MG/3 ML Neb Soln NEB PRN (09:40)
--- NOTE | 2019-01-19 09:41 | PCM.PN ---
- General Info Date of Service: 01/19/19 Subjective Update: Since intubation the patient has been relatively stable. PCO2 level has been trending down. He has remained on a low-dose of norepinephrine. FiO2 has been weaned down to 40% with increased PEEP and tidal volume. Respiratory culture from last night showed some gram-negative rods. He did have a bronchoscopy this morning with respiratory Gram stain showing gram-positive rods and a few gram- negative rods. Chest x-ray this morning shows improved aeration in the right lower lung and stable left lower lobe infiltrate. Functional Status: Reports: Other (intubated and sedated) - Review of Systems General: Denies: Fever - Patient Data Vitals - Most Recent: Last Vital Signs Temp 37.9 C 01/19/19 08:05 Pulse 84 01/19/19 07:11 Resp 24 H 01/19/19 09:00 BP 118/48 L 01/19/19 09:00 Pulse Ox 94 L 01/19/19 09:00 Weight - Most Recent: 178.8 kg I&O - Last 24 Hours: Intake & Output 01/18/19 01/19/19 01/19/19 22:59 06:59 14:59 Intake Total 3852 Output Total 1100 240 Balance 2752 -240 Lab Results Last 24 Hours: Laboratory Results - last 24 hr 01/18/19 01/18/19 01/18/19 Range/Units 16:52 16:52 16:52 WBC 19.2 H (4.5-11.0) K/uL RBC 4.32 (4.30-5.90) M/uL Hgb 11.5 L (12.0-15.0) g/dL Hct 36.1 L (40.0-54.0) % MCV 84 (80-98) fL MCH 27 (27-31) pg MCHC 32 (32-36) % Plt Count 275 (150-400) K/uL Add Manual Diff Yes Neutrophils % (Manual) 66 (36-66) % Band Neutrophils % 5 (5-11) % Lymphocytes % (Manual) 17 L (24-44) % Monocytes % (Manual) 9 H (2-6) % Eosinophils % (Manual) 1 L (2-4) % Basophils % (Manual) 2 H (0-1) % Anisocytosis PT 10.3 (9.5-12.0) sec INR 0.93 (0.80-1.20) Puncture Site Rt radial ABG pH 7.219 L (7.350-7.450) ABG pCO2 73.8 H* (35.0-42.0) mmHg ABG pO2 108.0 H (75.0-100.0) mmHg ABG HCO3 29.0 H (22.0-26.0) mmol/L ABG Total CO2 27.6 H (23.0-27.0) mmol/L ABG O2 Saturation 97.4 (95.0-98.0) % ABG O2 Content 14.4 L (15.0-23.0) %vol ABG Base Excess 0.1 mm/L ABG Hemoglobin 11.5 L (13.5-18.0) g/dL ABG Oxyhemoglobin 87.8 % ABG Carboxyhemoglobin 9.0 H (0.0-1.6) % ABG Methemoglobin 0.9 % Ruddy Test Passed O2 Delivery Device Simple mask Oxygen Flow Rate 4 L Sodium (140-148) mmol/L Potassium (3.6-5.2) mmol/L Chloride (100-108) mmol/L Carbon Dioxide (21-32) mmol/L Anion Gap (5.0-14.0) mmol/L BUN (7-18) mg/dL Creatinine (0.8-1.3) mg/dL Est Cr Clr Drug Dosing mL/min Estimated GFR (MDRD) (>60) Glucose (74-106) mg/dL Lactic Acid (0.4-2.0) mmol/L Calcium (8.5-10.1) mg/dL Magnesium (1.8-2.4) mg/dL Total Bilirubin (0.2-1.0) mg/dL AST (15-37) U/L ALT (12-78) U/L Alkaline Phosphatase (46-116) U/L Troponin I (0.000-0.056) ng/mL Total Protein (6.4-8.2) g/dL Albumin (3.4-5.0) g/dL Globulin (2.3-3.5) g/dL Albumin/Globulin Ratio (1.2-2.2) Urine Color Urine Appearance Urine pH (4.5-8.0) Ur Specific [place] (1.008-1.030) Urine Protein (NEGATIVE) mg/dL Urine Glucose (UA) (NEGATIVE) mg/dL Urine Ketones (NEGATIVE) mg/dL Urine Occult Blood (NEGATIVE) Urine Nitrite (NEGAITVE) Urine Bilirubin (NEGATIVE) Urine Urobilinogen (NORMAL) mg/dL Ur Leukocyte Esterase (NEGATIVE) Urine RBC (0-5) Urine WBC (0-5) Ur Epithelial Cells Amorphous Sediment Urine Bacteria Urine Mucus Ethyl Alcohol mg/dL 01/18/19 01/18/19 01/18/19 Range/Units 16:52 16:52 16:52 WBC (4.5-11.0) K/uL RBC (4.30-5.90) M/uL Hgb (12.0-15.0) g/dL Hct (40.0-54.0) % MCV (80-98) fL MCH (27-31) pg MCHC (32-36) % Plt Count (150-400) K/uL Add Manual Diff Neutrophils % (Manual) (36-66) % Band Neutrophils % (5-11) % Lymphocytes % (Manual) (24-44) % Monocytes % (Manual) (2-6) % Eosinophils % (Manual) (2-4) % Basophils % (Manual) (0-1) % Anisocytosis PT (9.5-12.0) sec INR (0.80-1.20) Puncture Site ABG pH (7.350-7.450) ABG pCO2 (35.0-42.0) mmHg ABG pO2 (75.0-100.0) mmHg ABG HCO3 (22.0-26.0) mmol/L ABG Total CO2 (23.0-27.0) mmol/L ABG O2 Saturation (95.0-98.0) % ABG O2 Content (15.0-23.0) %vol ABG Base Excess mm/L ABG Hemoglobin (13.5-18.0) g/dL ABG Oxyhemoglobin % ABG Carboxyhemoglobin (0.0-1.6) % ABG Methemoglobin % Ruddy Test O2 Delivery Device Oxygen Flow Rate L Sodium 132 L (140-148) mmol/L Potassium 5.0 (3.6-5.2) mmol/L Chloride 96 L (100-108) mmol/L Carbon Dioxide 29 (21-32) mmol/L Anion Gap 12.0 (5.0-14.0) mmol/L BUN 49 H D (7-18) mg/dL Creatinine 1.6 H (0.8-1.3) mg/dL Est Cr Clr Drug Dosing 52.54 mL/min Estimated GFR (MDRD) 44 L (>60) Glucose 150 H (74-106) mg/dL Lactic Acid 0.7 (0.4-2.0) mmol/L Calcium 8.6 (8.5-10.1) mg/dL Magnesium (1.8-2.4) mg/dL Total Bilirubin 0.2 (0.2-1.0) mg/dL AST 20 (15-37) U/L ALT 27 (12-78) U/L Alkaline Phosphatase 114 (46-116) U/L Troponin I < 0.017 (0.000-0.056) ng/mL Total Protein 8.1 (6.4-8.2) g/dL Albumin 3.2 L (3.4-5.0) g/dL Globulin 4.9 H (2.3-3.5) g/dL Albumin/Globulin Ratio 0.7 L (1.2-2.2) Urine Color Urine Appearance Urine pH (4.5-8.0) Ur Specific [place] (1.008-1.030) Urine Protein (NEGATIVE) mg/dL Urine Glucose (UA) (NEGATIVE) mg/dL Urine Ketones (NEGATIVE) mg/dL Urine Occult Blood (NEGATIVE) Urine Nitrite (NEGAITVE) Urine Bilirubin (NEGATIVE) Urine Urobilinogen (NORMAL) mg/dL Ur Leukocyte Esterase (NEGATIVE) Urine RBC (0-5) Urine WBC (0-5) Ur Epithelial Cells Amorphous Sediment Urine Bacteria Urine Mucus Ethyl Alcohol < 3 mg/dL 01/18/19 01/18/19 01/18/19 Range/Units 18:44 21:00 22:21 WBC (4.5-11.0) K/uL RBC (4.30-5.90) M/uL Hgb (12.0-15.0) g/dL Hct (40.0-54.0) % MCV (80-98) fL MCH (27-31) pg MCHC (32-36) % Plt Count (150-400) K/uL Add Manual Diff Neutrophils % (Manual) (36-66) % Band Neutrophils % (5-11) % Lymphocytes % (Manual) (24-44) % Monocytes % (Manual) (2-6) % Eosinophils % (Manual) (2-4) % Basophils % (Manual) (0-1) % Anisocytosis PT (9.5-12.0) sec INR (0.80-1.20) Puncture Site Lt radial A-line ABG pH 7.143 L* 7.112 L* (7.350-7.450) ABG pCO2 96.0 H* 96.9 H* (35.0-42.0) mmHg ABG pO2 73.6 L 92.7 (75.0-100.0) mmHg ABG HCO3 31.5 H 29.6 H (22.0-26.0) mmol/L ABG Total CO2 30.6 H 29.3 H (23.0-27.0) mmol/L ABG O2 Saturation 91.2 L 94.8 L (95.0-98.0) % ABG O2 Content 13.8 L 13.6 L (15.0-23.0) %vol ABG Base Excess 0.2 -1.7 mm/L ABG Hemoglobin 11.6 L 10.7 L (13.5-18.0) g/dL ABG Oxyhemoglobin 84.1 90.0 % ABG Carboxyhemoglobin 6.7 H 4.3 H (0.0-1.6) % ABG Methemoglobin 1.1 0.8 % Ruddy Test Passed A-line O2 Delivery Device Bipap Ventilator Oxygen Flow Rate L Sodium (140-148) mmol/L Potassium (3.6-5.2) mmol/L Chloride (100-108) mmol/L Carbon Dioxide (21-32) mmol/L Anion Gap (5.0-14.0) mmol/L BUN (7-18) mg/dL Creatinine (0.8-1.3) mg/dL Est Cr Clr Drug Dosing mL/min Estimated GFR (MDRD) (>60) Glucose (74-106) mg/dL Lactic Acid (0.4-2.0) mmol/L Calcium (8.5-10.1) mg/dL Magnesium (1.8-2.4) mg/dL Total Bilirubin (0.2-1.0) mg/dL AST (15-37) U/L ALT (12-78) U/L Alkaline Phosphatase (46-116) U/L Troponin I (0.000-0.056) ng/mL Total Protein (6.4-8.2) g/dL Albumin (3.4-5.0) g/dL Globulin (2.3-3.5) g/dL Albumin/Globulin Ratio (1.2-2.2) Urine Color Yellow Urine Appearance Clear Urine pH 5.0 (4.5-8.0) Ur Specific [place] 1.020 (1.008-1.030) Urine Protein Negative (NEGATIVE) mg/dL Urine Glucose (UA) Normal (NEGATIVE) mg/dL Urine Ketones Negative (NEGATIVE) mg/dL Urine Occult Blood Negative (NEGATIVE) Urine Nitrite Negative (NEGAITVE) Urine Bilirubin Negative (NEGATIVE) Urine Urobilinogen Normal (NORMAL) mg/dL Ur Leukocyte Esterase Negative (NEGATIVE) Urine RBC 0-5 (0-5) Urine WBC 0-5 (0-5) Ur Epithelial Cells Moderate Amorphous Sediment Not seen Urine Bacteria Few Urine Mucus Not seen Ethyl Alcohol mg/dL 01/18/19 01/18/19 01/19/19 Range/Units 22:30 23:30 06:00 WBC 14.7 H (4.5-11.0) K/uL RBC 3.81 L (4.30-5.90) M/uL Hgb 9.8 L (12.0-15.0) g/dL Hct 32.0 L (40.0-54.0) % MCV 84 (80-98) fL MCH 26 L (27-31) pg MCHC 31 L (32-36) % Plt Count 302 (150-400) K/uL Add Manual Diff Yes Neutrophils % (Manual) 84 H (36-66) % Band Neutrophils % 3 L (5-11) % Lymphocytes % (Manual) 10 L (24-44) % Monocytes % (Manual) 3 (2-6) % Eosinophils % (Manual) (2-4) % Basophils % (Manual) (0-1) % Anisocytosis Marked H PT (9.5-12.0) sec INR (0.80-1.20) Puncture Site A-line Line ABG pH 7.224 L 7.285 L (7.350-7.450) ABG pCO2 71.6 H* 59.8 H (35.0-42.0) mmHg ABG pO2 62.7 L 75.3 (75.0-100.0) mmHg ABG HCO3 28.5 H 27.5 H (22.0-26.0) mmol/L ABG Total CO2 27.6 H 26.2 (23.0-27.0) mmol/L ABG O2 Saturation 89.6 L 94.9 L (95.0-98.0) % ABG O2 Content 12.0 L 13.0 L (15.0-23.0) %vol ABG Base Excess 0.2 0.6 mm/L ABG Hemoglobin 9.9 L 10.1 L (13.5-18.0) g/dL ABG Oxyhemoglobin 85.8 91.0 % ABG Carboxyhemoglobin 3.3 H 3.3 H (0.0-1.6) % ABG Methemoglobin 0.9 0.8 % Ruddy Test A-line A-line O2 Delivery Device Ventilator Ventilator Oxygen Flow Rate L Sodium (140-148) mmol/L Potassium (3.6-5.2) mmol/L Chloride (100-108) mmol/L Carbon Dioxide (21-32) mmol/L Anion Gap (5.0-14.0) mmol/L BUN (7-18) mg/dL Creatinine (0.8-1.3) mg/dL Est Cr Clr Drug Dosing mL/min Estimated GFR (MDRD) (>60) Glucose (74-106) mg/dL Lactic Acid (0.4-2.0) mmol/L Calcium (8.5-10.1) mg/dL Magnesium (1.8-2.4) mg/dL Total Bilirubin (0.2-1.0) mg/dL AST (15-37) U/L ALT (12-78) U/L Alkaline Phosphatase (46-116) U/L Troponin I (0.000-0.056) ng/mL Total Protein (6.4-8.2) g/dL Albumin (3.4-5.0) g/dL Globulin (2.3-3.5) g/dL Albumin/Globulin Ratio (1.2-2.2) Urine Color Urine Appearance Urine pH (4.5-8.0) Ur Specific [place] (1.008-1.030) Urine Protein (NEGATIVE) mg/dL Urine Glucose (UA) (NEGATIVE) mg/dL Urine Ketones (NEGATIVE) mg/dL Urine Occult Blood (NEGATIVE) Urine Nitrite (NEGAITVE) Urine Bilirubin (NEGATIVE) Urine Urobilinogen (NORMAL) mg/dL Ur Leukocyte Esterase (NEGATIVE) Urine RBC (0-5) Urine WBC (0-5) Ur Epithelial Cells Amorphous Sediment Urine Bacteria Urine Mucus Ethyl Alcohol mg/dL 01/19/19 01/19/19 Range/Units 06:00 06:05 WBC (4.5-11.0) K/uL RBC (4.30-5.90) M/uL Hgb (12.0-15.0) g/dL Hct (40.0-54.0) % MCV (80-98) fL MCH (27-31) pg MCHC (32-36) % Plt Count (150-400) K/uL Add Manual Diff Neutrophils % (Manual) (36-66) % Band Neutrophils % (5-11) % Lymphocytes % (Manual) (24-44) % Monocytes % (Manual) (2-6) % Eosinophils % (Manual) (2-4) % Basophils % (Manual) (0-1) % Anisocytosis PT (9.5-12.0) sec INR (0.80-1.20) Puncture Site Line ABG pH 7.380 (7.350-7.450) ABG pCO2 50.2 H (35.0-42.0) mmHg ABG pO2 69.7 L (75.0-100.0) mmHg ABG HCO3 29.0 H (22.0-26.0) mmol/L ABG Total CO2 27.0 (23.0-27.0) mmol/L ABG O2 Saturation 94.8 L (95.0-98.0) % ABG O2 Content 13.2 L (15.0-23.0) %vol ABG Base Excess 3.7 mm/L ABG Hemoglobin 10.2 L (13.5-18.0) g/dL ABG Oxyhemoglobin 92.0 % ABG Carboxyhemoglobin 2.2 H (0.0-1.6) % ABG Methemoglobin 0.8 % Ruddy Test A-line O2 Delivery Device Ventilator Oxygen Flow Rate L Sodium 134 L (140-148) mmol/L Potassium 5.4 H (3.6-5.2) mmol/L Chloride 99 L (100-108) mmol/L Carbon Dioxide 28 (21-32) mmol/L Anion Gap 12.4 (5.0-14.0) mmol/L BUN 41 H (7-18) mg/dL Creatinine 1.5 H (0.8-1.3) mg/dL Est Cr Clr Drug Dosing 56.04 mL/min Estimated GFR (MDRD) 47 L (>60) Glucose 132 H (74-106) mg/dL Lactic Acid (0.4-2.0) mmol/L Calcium 8.4 L (8.5-10.1) mg/dL Magnesium 1.8 (1.8-2.4) mg/dL Total Bilirubin 0.2 (0.2-1.0) mg/dL AST 34 (15-37) U/L ALT 23 (12-78) U/L Alkaline Phosphatase 91 (46-116) U/L Troponin I (0.000-0.056) ng/mL Total Protein 6.7 (6.4-8.2) g/dL Albumin 2.6 L (3.4-5.0) g/dL Globulin 4.1 H (2.3-3.5) g/dL Albumin/Globulin Ratio 0.6 L (1.2-2.2) Urine Color Urine Appearance Urine pH (4.5-8.0) Ur Specific [place] (1.008-1.030) Urine Protein (NEGATIVE) mg/dL Urine Glucose (UA) (NEGATIVE) mg/dL Urine Ketones (NEGATIVE) mg/dL Urine Occult Blood (NEGATIVE) Urine Nitrite (NEGAITVE) Urine Bilirubin (NEGATIVE) Urine Urobilinogen (NORMAL) mg/dL Ur Leukocyte Esterase (NEGATIVE) Urine RBC (0-5) Urine WBC (0-5) Ur Epithelial Cells Amorphous Sediment Urine Bacteria Urine Mucus Ethyl Alcohol mg/dL Petey Results Last 24 Hours: Microbiology 01/19/19 08:05 JUDY Preparation - Final Other - Bronch Wash 01/19/19 08:05 Gram Stain - Final Bronchial Washings - Lung, Unspecified 01/18/19 20:57 Gram Stain - Final Tracheal Aspirate Med Orders - Current: Current Medications Acetylcysteine (Mucomyst 20%) 200 mg INH BIDRT [facility] Last Admin: 01/19/19 09:09 Dose: 200 mg Albuterol (Proventil Neb Soln) 2.5 mg NEB Q2H PRN PRN Reason: Shortness Of Breath/wheezing Albuterol/Ipratropium (Duoneb 3.0-0.5 Mg/3 Ml) 3 ml NEB QIDRT [facility] Last Admin: 01/19/19 07:10 Dose: 3 ml Enoxaparin Sodium (Lovenox) 40 mg SUBCUT BEDTIME [facility] Last Admin: 01/18/19 22:00 Dose: 40 mg Azithromycin 500 mg/ Sodium (Chloride) 250 mls @ 250 mls/hr IV Q24H [facility] Last Admin: 01/18/19 21:48 Dose: 250 mls/hr Norepinephrine Bitartrate 4 mg (/ Dextrose/Water) 250 mls @ 7.5 mls/hr IV TITRATE [facility]; Protocol Propofol (Diprivan 100 Ml) 100 mls @ 5.416 mls/hr IV TITRATE [facility]; Protocol Last Admin: 01/19/19 09:28 Dose: 20 mcg/kg/min, 21.664 mls/hr Sodium Chloride (Normal Saline) 1,000 mls @ 0 mls/hr IV ASDIRECTED [facility] Last Admin: 01/18/19 22:16 Dose: 25 mls/hr Piperacillin/Tazobactam/ (Dextrose 3.375 gm/ Premix) 50 mls @ 100 mls/hr IV Q6H [facility] Last Admin: 01/19/19 08:35 Dose: 100 mls/hr Heparin Sodium (Porcine) 5,000 (units/ Sodium Chloride) 501 mls @ 5 mls/hr IV ASDIRECTED [facility] Vancomycin HCl 1.5 gm/ Sodium (Chloride) 250 mls @ 166.667 mls/hr IV Q12H [facility] Methylprednisolone Sodium Succinate (Solu-Medrol) 40 mg IVPUSH Q6H [facility] Last Admin: 01/19/19 08:35 Dose: 40 mg Nystatin (Nystop) 0 gm TOP QID [facility] Ondansetron HCl (Zofran) 4 mg IV Q4H PRN PRN Reason: Nausea/Vomiting Pantoprazole Sodium (Protonix Iv) 40 mg IVPUSH Q24H [facility] Fluticasone/Salmeterol (Fluticasone-Salmeterol 232-14 Mcg Powder Inha) 1 puff INH BIDRT EVGENY Sodium Chloride (Saline Flush) 10 ml FLUSH ASDIRECTED PRN PRN Reason: Keep Vein Open Discontinued Medications Albuterol (Proventil Neb Soln) 2.5 mg NEB Q4H PRN PRN Reason: Shortness Of Breath/wheezing Albuterol/Ipratropium (Duoneb 3.0-0.5 Mg/3 Ml) 3 ml NEB QID [facility]GEN[facility] Last Admin: 01/18/19 22:04 Dose: 3 ml Albuterol/Ipratropium (Duoneb 3.0-0.5 Mg/3 Ml) 3 ml INH ASDIRECTED PRN PRN Reason: Shortness of Breath Heparin Sodium (Porcine) (Heparin Sodium) Confirm Administered Dose 5,000 units .ROUTE .STK-MED ONE Stop: 01/18/19 20:00 Last Admin: 01/18/19 21:54 Dose: 5,000 units Lactated Ringer's (Ringers, Lactated) 1,000 mls @ 999 mls/hr IV BOLUS ONE Stop: 01/18/19 19:37 Last Admin: 01/18/19 21:50 Dose: 999 mls/hr Levofloxacin/Dextrose 750 mg/ (Premix) 150 mls @ 100 mls/hr IV ONETIME ONE Stop: 01/18/19 20:06 Last Admin: 01/18/19 18:42 Dose: 100 mls/hr Norepinephrine Bitartrate 4 mg (/ Dextrose/Water) 250 mls @ 7.5 mls/hr IV TITRATE [facility]; Protocol Last Titration: 01/19/19 08:00 Dose: 2 mcg/min, 7.5 mls/hr Lactated Ringer's (Ringers, Lactated) 1,000 mls @ 1,000 mls/hr IV ASDIRECTED [facility]GEN[facility] Stop: 01/18/19 21:01 Propofol (Diprivan 100 Ml) Confirm Administered Dose 100 mls @ as directed .ROUTE .STK-MED ONE Stop: 01/18/19 20:01 Last Admin: 01/18/19 22:00 Dose: Not Given Lactated Ringer's (Ringers, Lactated) 1,000 mls @ 125 mls/hr IV ASDIRECTED [facility] Last Admin: 01/19/19 06:53 Dose: 125 mls/hr Piperacillin Sod/Tazobactam (Sod 3.375 gm/ Sodium Chloride) 50 mls @ 100 mls/ hr IV Q6H [facility] Last Admin: 01/19/19 03:00 Dose: 100 mls/hr Vancomycin HCl 1 gm/ Sodium (Chloride) 250 mls @ 166.667 mls/hr IV Q12H [facility] Last Admin: 01/19/19 06:59 Dose: Not Given Lactated Ringer's (Ringers, Lactated) 1,000 mls @ 999 mls/hr IV BOLUS ONE Stop: 01/18/19 22:51 Last Admin: 01/18/19 22:09 Dose: 999 mls/hr Sodium Chloride (Normal Saline) 500 mls @ 1 mls/hr IV .BOLUS ONE Stop: 02/08/19 17:53 Last Admin: 01/18/19 22:14 Dose: 1 mls/hr Vancomycin HCl 1 gm/ Sodium (Chloride) 250 mls @ 166.667 mls/hr IV Q12H [facility] Last Admin: 01/19/19 00:26 Dose: 166.667 mls/hr Lidocaine HCl (Xylocaine 2% Viscous) Confirm Administered Dose 15 ml .ROUTE .STK -MED ONE Stop: 01/19/19 06:47 Lidocaine HCl (Xylocaine 4% Top Soln) Confirm Administered Dose 50 ml .ROUTE .STK-MED ONE Stop: 01/19/19 06:47 Last Admin: 01/19/19 07:45 Dose: 50 ml Lorazepam (Ativan) 1 mg IVPUSH ONETIME ONE Stop: 01/18/19 18:10 Last Admin: 01/18/19 18:17 Dose: 1 mg Nystatin (Nystop) 0 gm TOP QID [facility] Last Admin: 01/19/19 05:33 Dose: 1 applic Nystatin (Nystop) Confirm Administered Dose 15 gm .ROUTE .STK-MED ONE Stop: 01/19/19 00:38 Last Admin: 01/19/19 02:45 Dose: Not Given Pantoprazole Sodium (Protonix Iv) 40 mg IVPUSH Q24H [facility] Last Admin: 01/18/19 22:01 Dose: 40 mg Propofol (Diprivan 20 Ml) Confirm Administered Dose 200 mg .ROUTE .STK-MED ONE Stop: 01/18/19 19:40 Fluticasone/Salmeterol (Fluticasone-Salmeterol 232-14 Mcg Powder Inha) 1 puff INH BID [facility] Last Admin: 01/18/19 22:10 Dose: Not Given Sodium Chloride (Saline Flush) 10 ml FLUSH ASDIRECTED PRN PRN Reason: Keep Vein Open Last Admin: 01/18/19 17:26 Dose: 10 ml Sodium Chloride (Saline Flush) 10 ml FLUSH ASDIRECTED PRN PRN Reason: Keep Vein Open Last Admin: 01/18/19 17:27 Dose: 10 ml Succinylcholine Chloride (Quelicin) Confirm Administered Dose 200 mg .ROUTE .STK -MED ONE Stop: 01/18/19 19:40 Vancomycin HCl (Vancomycin) 0 gm IV .PHARMACY TO DOSE EVGENY Stop: 01/19/19 08:00 - Exam Quality Assessment: Supplemental Oxygen, Urine Catheter, Restraints General: No Acute Distress, Sedated. No: Alert HEENT: Pupils Equal Neck: Supple Lungs: Normal Respiratory Effort, Crackles (few both bases) Cardiovascular: Regular Rate, Regular Rhythm, No Murmurs GI/Abdominal Exam: Soft, No Distention, Other (obese) Extremities: Pedal Edema. No: Increased Warmth Skin: Warm, Dry Psy/Mental Status: No: Alert, Agitated - Problem List Review Problem List Initiated/Reviewed/Updated: Yes - My Orders Last 24 Hours: My Active Orders 01/19/19 09:40 Albuterol [Proventil Neb Soln] 2.5 mg NEB Q2H PRN 01/19/19 09:45 Lactated Ringers [Ringers, Lactated] 1,000 ml IV ASDIRECTED 01/19/19 16:00 ABG [BLOOD GAS ARTERIAL] [BG] Timed 01/20/19 05:00 BASIC METABOLIC PANEL,BMP [CHEM] Timed BLOOD GAS ARTERIAL [BG] Timed CBC W/O DIFF,HEMOGRAM [HEME] Timed (1) - Plan Plan:: ASSESSMENT AND PLAN PNEUMONIA WITH SEPTIC SHOCK - clinically he has stabilized but remains on norepinephrine and continues to require ventilator support. FiO2 requirement has been decreasing. Norepinephrine requirement small at this time. Cultures are still pending. Tolerating current antibiotics and steroids. -Blood and sputum cultures pending -Continue gentle IV fluids -Continue IV norepinephrine -IV steroids -IV antibiotic therapy; azithromycin, vancomycin, Pip/Tazo, pending culture results HYPOXIC AND HYPERCAPNIC RESPIRATORY FAILURE - secondary to pneumonia and underlying COPD. Slowly improving with management as above. Peak pressures are in the mid 20s today. -Intubation and mechanical ventilation, PEEP currently at 8 -Follow blood gases after 1 hour on ventilator -Nebulized albuterol and DuoNeb's -Solu-Medrol 40 mg IV every 6 hours -Daily chest x-ray COPD - he may also have a component of obesity related hypoventilation -Management as above CHRONIC KIDNEY DISEASE STAGE III - kidney function stable -Sauceda catheter to closely monitor urine output -Follow-up labs for renal function in a.m. MORBID OBESITY WITH BMI GREATER THAN 50 MAINTENANCE ISSUES -DVT prophylaxis; Lovenox 40 mg subcutaneous daily -GI prophylaxis; Protonix 40 mg IV daily -Sauceda catheter; placed to closely monitor urine output -Nutrition; nothing by mouth DISPOSITION - anticipate discharge to home after the hospital stay. Michael Roman M.D.
[2019-01-19] MEDS: Nystatin Topical Powder 15 GM Bottle TOP SCH ×3 (09:59→21:47)
[2019-01-19] MEDS: Lactated Ringers 1,000 ML IV SCH (18:32)
[2019-01-19] MEDS ORDERED: Acetaminophen 1,000 MG in Premix Bag 1 BAG IV ONE (20:05)
[2019-01-19] MEDS: Fluticasone-Salmeterol 232-14 MCG Powder Inhalent INH SCH (20:46)
[2019-01-19] MEDS: Enoxaparin 40 MG/0.4 ML Syringe SUBCUT SCH (21:00)
[2019-01-19] MEDS: Pantoprazole 40 MG Vial IVPUSH SCH (21:45)
[2019-01-19] MEDS: Azithromycin 500 MG in Sodium Chloride 0.9% 250 ML IV SCH (21:46)
[2019-01-20] MEDS: methylPREDNISolone Sodium Succinate 40 MG/1 ML SDV IVPUSH SCH ×4 (02:39→20:48)
[2019-01-20] MEDS: Piperacillin/Tazobactam/Dext 3.375 GM in Premix Bag 1 BAG IV SCH ×4 (02:40→20:54)
--- NOTE | 2019-01-20 04:48 | CRLCR ---
INDICATION: Intubated, respiratory failure. TECHNIQUE: Chest 1 views COMPARISON: Chest x-ray 01/19/2019 FINDINGS: Cardiovascular and mediastinum: Cardiomegaly with endotracheal tube at the midtrachea level. Lungs and pleural spaces: Likely trace left pleural effusion with pulmonary cephalization and bilateral interstitial and alveolar opacities. Bones and soft tissues: No significant findings. IMPRESSION: Cardiomegaly with trace left pleural effusion and bilateral interstitial and alveolar opacities, mildly worsened compared to the study of 1 day prior. Dictated by Gurwinder Cyr MD @ Jan 20 2019 4:45AM Signed by Dr. Gurwinder Cyr @ Jan 20 2019 4:47AM
[2019-01-20] MEDS: Nystatin Topical Powder 15 GM Bottle TOP SCH ×4 (05:01→21:50)
[2019-01-20] MEDS: Lactated Ringers 1,000 ML IV SCH ×2 (07:20→09:59)
[2019-01-20] MEDS: Albuterol/Ipratropium 3.0-0.5 MG/3 ML Neb Soln NEB SCH ×4 (07:26→20:57)
[2019-01-20] MEDS: Fluticasone-Salmeterol 232-14 MCG Powder Inhalent INH SCH ×2 (07:27→20:59)
[2019-01-20] MEDS ORDERED: Furosemide 40 MG/4 ML VIAL IVPUSH ONE ×2 (08:15→21:00)
--- NOTE | 2019-01-20 08:47 | PCM.PN ---
- General Info Date of Service: 01/20/19 Subjective Update: There were no acute events overnight. He has rested well with the assist control. FiO2 is down to 40%. Peak pressures are around 22-25. Secretions do not seem to be an issue at this time. Patient remains intubated and sedated. This morning during rounds the patient coughed or moved and partially dislodge the endotracheal tube. He had vital volumes that were extremely small. The cuff was deflated and the tube was advanced several centimeters. Oxygenation was much better and tidal volumes were back to normal after this procedure. Chest x- ray suggest the tube was slightly deep and it was withdrawn to 26 cm at the lip. He has been stable since that time. Chest x-ray this morning suggested increased interstitial infiltrates concerning for beginnings of some pulmonary congestion. Functional Status: Reports: Other (intubated and sedated) - Review of Systems General: Denies: Fever - Patient Data Vitals - Most Recent: Last Vital Signs Temp 37.3 C 01/20/19 04:00 Pulse 84 01/20/19 08:00 Resp 24 H 01/20/19 06:00 BP 101/65 01/20/19 08:00 Pulse Ox 91 L 01/20/19 08:00 Weight - Most Recent: 183 kg I&O - Last 24 Hours: Intake & Output 01/19/19 01/20/19 01/20/19 22:59 06:59 14:59 Intake Total 2266 2256 Output Total 1300 1400 Balance 966 856 Lab Results Last 24 Hours: Laboratory Results - last 24 hr 01/19/19 01/20/19 01/20/19 Range/Units 16:00 04:30 04:30 WBC 11.9 H (4.5-11.0) K/uL RBC 3.65 L (4.30-5.90) M/uL Hgb 9.4 L (12.0-15.0) g/dL Hct 30.4 L (40.0-54.0) % MCV 83 (80-98) fL MCH 26 L (27-31) pg MCHC 31 L (32-36) % Plt Count 297 (150-400) K/uL Puncture Site A-line Line ABG pH 7.376 7.432 (7.350-7.450) ABG pCO2 50.2 H 43.2 H (35.0-42.0) mmHg ABG pO2 70.6 L 72.0 L (75.0-100.0) mmHg ABG HCO3 28.7 H 28.3 H (22.0-26.0) mmol/L ABG Total CO2 27.0 26.3 (23.0-27.0) mmol/L ABG O2 Saturation 93.8 L 95.0 (95.0-98.0) % ABG O2 Content 12.5 L 12.6 L (15.0-23.0) %vol ABG Base Excess 3.5 4.1 mm/L ABG Hemoglobin 9.6 L 9.6 L (13.5-18.0) g/dL ABG Oxyhemoglobin 92.2 92.7 % ABG Carboxyhemoglobin 0.9 1.6 (0.0-1.6) % ABG Methemoglobin 0.8 0.8 % Ruddy Test A-line A-line O2 Delivery Device Ventilator Ventilator Oxygen Flow Rate L Sodium (140-148) mmol/L Potassium (3.6-5.2) mmol/L Chloride (100-108) mmol/L Carbon Dioxide (21-32) mmol/L Anion Gap (5.0-14.0) mmol/L BUN (7-18) mg/dL Creatinine (0.8-1.3) mg/dL Est Cr Clr Drug Dosing mL/min Estimated GFR (MDRD) (>60) Glucose (74-106) mg/dL Calcium (8.5-10.1) mg/dL 01/20/19 Range/Units 04:30 WBC (4.5-11.0) K/uL RBC (4.30-5.90) M/uL Hgb (12.0-15.0) g/dL Hct (40.0-54.0) % MCV (80-98) fL MCH (27-31) pg MCHC (32-36) % Plt Count (150-400) K/uL Puncture Site ABG pH (7.350-7.450) ABG pCO2 (35.0-42.0) mmHg ABG pO2 (75.0-100.0) mmHg ABG HCO3 (22.0-26.0) mmol/L ABG Total CO2 (23.0-27.0) mmol/L ABG O2 Saturation (95.0-98.0) % ABG O2 Content (15.0-23.0) %vol ABG Base Excess mm/L ABG Hemoglobin (13.5-18.0) g/dL ABG Oxyhemoglobin % ABG Carboxyhemoglobin (0.0-1.6) % ABG Methemoglobin % Ruddy Test O2 Delivery Device Oxygen Flow Rate L Sodium 136 L (140-148) mmol/L Potassium 4.6 (3.6-5.2) mmol/L Chloride 101 (100-108) mmol/L Carbon Dioxide 28 (21-32) mmol/L Anion Gap 11.6 (5.0-14.0) mmol/L BUN 32 H (7-18) mg/dL Creatinine 1.3 (0.8-1.3) mg/dL Est Cr Clr Drug Dosing 64.76 mL/min Estimated GFR (MDRD) 56 L (>60) Glucose 138 H (74-106) mg/dL Calcium 8.6 (8.5-10.1) mg/dL Petey Results Last 24 Hours: Microbiology 01/19/19 08:05 Gram Stain - Final Bronchial Washings - Lung, Unspecified Respiratory Culture - Preliminary REDUCED NORMAL RESPIRATORY PEPITO 01/18/19 20:57 Gram Stain - Final Tracheal Aspirate Respiratory Culture - Preliminary 01/18/19 17:50 Aerobic Blood Culture - Preliminary Blood - Arm, Left NO GROWTH AFTER 1 DAY Anaerobic Blood Culture - Preliminary NO GROWTH AFTER 1 DAY 01/18/19 17:45 Aerobic Blood Culture - Preliminary Blood - Arm, Left NO GROWTH AFTER 1 DAY Anaerobic Blood Culture - Preliminary NO GROWTH AFTER 1 DAY 01/19/19 08:05 JUDY Preparation - Final Other - Bronch Wash Med Orders - Current: Current Medications Acetylcysteine (Mucomyst 20%) 200 mg INH BIDRT [facility] Last Admin: 01/19/19 20:56 Dose: 200 mg Albuterol (Proventil Neb Soln) 2.5 mg NEB Q2H PRN PRN Reason: Shortness Of Breath/wheezing Albuterol/Ipratropium (Duoneb 3.0-0.5 Mg/3 Ml) 3 ml NEB QIDRT [facility] Last Admin: 01/20/19 07:26 Dose: 3 ml Enoxaparin Sodium (Lovenox) 40 mg SUBCUT BEDTIME [facility] Last Admin: 01/19/19 21:00 Dose: 40 mg Azithromycin 500 mg/ Sodium (Chloride) 250 mls @ 250 mls/hr IV Q24H [facility] Last Admin: 01/19/19 21:46 Dose: 250 mls/hr Norepinephrine Bitartrate 4 mg (/ Dextrose/Water) 250 mls @ 7.5 mls/hr IV TITRATE [facility]; Protocol Propofol (Diprivan 100 Ml) 100 mls @ 5.416 mls/hr IV TITRATE [facility]; Protocol Last Admin: 01/20/19 07:19 Dose: 40 mcg/kg/min, 43.327 mls/hr Sodium Chloride (Normal Saline) 1,000 mls @ 0 mls/hr IV ASDIRECTED [facility] Last Admin: 01/18/19 22:16 Dose: 25 mls/hr Piperacillin/Tazobactam/ (Dextrose 3.375 gm/ Premix) 50 mls @ 100 mls/hr IV Q6H [facility] Last Admin: 01/20/19 02:40 Dose: 100 mls/hr Heparin Sodium (Porcine) 5,000 (units/ Sodium Chloride) 501 mls @ 5 mls/hr IV ASDIRECTED [facility] Vancomycin HCl 1.5 gm/ Sodium (Chloride) 250 mls @ 166.667 mls/hr IV Q12H [facility] Last Admin: 01/19/19 23:45 Dose: 166.667 mls/hr Lactated Ringer's (Ringers, Lactated) 1,000 mls @ 25 mls/hr IV ASDIRECTED [facility] Methylprednisolone Sodium Succinate (Solu-Medrol) 40 mg IVPUSH Q6H [facility] Last Admin: 01/20/19 02:39 Dose: 40 mg Nystatin (Nystop) 0 gm TOP QID [facility] Last Admin: 01/20/19 05:01 Dose: 1 applic Ondansetron HCl (Zofran) 4 mg IV Q4H PRN PRN Reason: Nausea/Vomiting Pantoprazole Sodium (Protonix Iv) 40 mg IVPUSH Q24H [facility] Last Admin: 01/19/19 21:45 Dose: 40 mg Fluticasone/Salmeterol (Fluticasone-Salmeterol 232-14 Mcg Powder Inha) 1 puff INH BIDRT [facility] Last Admin: 01/20/19 07:27 Dose: Not Given Sodium Chloride (Saline Flush) 10 ml FLUSH ASDIRECTED PRN PRN Reason: Keep Vein Open Discontinued Medications Albuterol (Proventil Neb Soln) 2.5 mg NEB Q4H PRN PRN Reason: Shortness Of Breath/wheezing Albuterol/Ipratropium (Duoneb 3.0-0.5 Mg/3 Ml) 3 ml NEB QID [facility] Last Admin: 01/18/19 22:04 Dose: 3 ml Albuterol/Ipratropium (Duoneb 3.0-0.5 Mg/3 Ml) 3 ml INH ASDIRECTED PRN PRN Reason: Shortness of Breath Furosemide (Lasix) 40 mg IVPUSH ONETIME ONE Stop: 01/20/19 08:16 Heparin Sodium (Porcine) (Heparin Sodium) Confirm Administered Dose 5,000 units .ROUTE .STK-MED ONE Stop: 01/18/19 20:00 Last Admin: 01/18/19 21:54 Dose: 5,000 units Lactated Ringer's (Ringers, Lactated) 1,000 mls @ 999 mls/hr IV BOLUS ONE Stop: 01/18/19 19:37 Last Admin: 01/18/19 21:50 Dose: 999 mls/hr Levofloxacin/Dextrose 750 mg/ (Premix) 150 mls @ 100 mls/hr IV ONETIME ONE Stop: 01/18/19 20:06 Last Admin: 01/18/19 18:42 Dose: 100 mls/hr Norepinephrine Bitartrate 4 mg (/ Dextrose/Water) 250 mls @ 7.5 mls/hr IV TITRATE [facility]; Protocol Last Titration: 01/19/19 16:27 Dose: 0 mcg/min, 0 mls/hr Lactated Ringer's (Ringers, Lactated) 1,000 mls @ 1,000 mls/hr IV ASDIRECTED [facility] Stop: 01/18/19 21:01 Propofol (Diprivan 100 Ml) Confirm Administered Dose 100 mls @ as directed .ROUTE .STK-MED ONE Stop: 01/18/19 20:01 Last Admin: 01/18/19 22:00 Dose: Not Given Lactated Ringer's (Ringers, Lactated) 1,000 mls @ 125 mls/hr IV ASDIRECTED [facility] Last Admin: 01/19/19 06:53 Dose: 125 mls/hr Piperacillin Sod/Tazobactam (Sod 3.375 gm/ Sodium Chloride) 50 mls @ 100 mls/ hr IV Q6H [facility] Last Admin: 01/19/19 03:00 Dose: 100 mls/hr Vancomycin HCl 1 gm/ Sodium (Chloride) 250 mls @ 166.667 mls/hr IV Q12H [facility] Last Admin: 01/19/19 06:59 Dose: Not Given Lactated Ringer's (Ringers, Lactated) 1,000 mls @ 999 mls/hr IV BOLUS ONE Stop: 01/18/19 22:51 Last Admin: 01/18/19 22:09 Dose: 999 mls/hr Sodium Chloride (Normal Saline) 500 mls @ 1 mls/hr IV .BOLUS ONE Stop: 02/08/19 17:53 Last Admin: 01/18/19 22:14 Dose: 1 mls/hr Vancomycin HCl 1 gm/ Sodium (Chloride) 250 mls @ 166.667 mls/hr IV Q12H [facility] Last Admin: 01/19/19 00:26 Dose: 166.667 mls/hr Lactated Ringer's (Ringers, Lactated) 1,000 mls @ 75 mls/hr IV ASDIRECTED [facility] Last Admin: 01/20/19 07:20 Dose: 75 mls/hr Acetaminophen 1,000 mg/ Premix 100 mls @ 400 mls/hr IV NOW ONE Stop: 01/19/19 20:19 Last Admin: 01/19/19 20:33 Dose: 400 mls/hr Lidocaine HCl (Xylocaine 2% Viscous) Confirm Administered Dose 15 ml .ROUTE .STK -MED ONE Stop: 01/19/19 06:47 Lidocaine HCl (Xylocaine 4% Top Soln) Confirm Administered Dose 50 ml .ROUTE .STK-MED ONE Stop: 01/19/19 06:47 Last Admin: 01/19/19 07:45 Dose: 50 ml Lorazepam (Ativan) 1 mg IVPUSH ONETIME ONE Stop: 01/18/19 18:10 Last Admin: 01/18/19 18:17 Dose: 1 mg Nystatin (Nystop) 0 gm TOP QID [facility] Last Admin: 01/19/19 05:33 Dose: 1 applic Nystatin (Nystop) Confirm Administered Dose 15 gm .ROUTE .STK-MED ONE Stop: 01/19/19 00:38 Last Admin: 01/19/19 02:45 Dose: Not Given Pantoprazole Sodium (Protonix Iv) 40 mg IVPUSH Q24H [facility] Last Admin: 01/18/19 22:01 Dose: 40 mg Propofol (Diprivan 20 Ml) Confirm Administered Dose 200 mg .ROUTE .STK-MED ONE Stop: 01/18/19 19:40 Fluticasone/Salmeterol (Fluticasone-Salmeterol 232-14 Mcg Powder Inha) 1 puff INH BID [facility] Last Admin: 01/18/19 22:10 Dose: Not Given Sodium Chloride (Saline Flush) 10 ml FLUSH ASDIRECTED PRN PRN Reason: Keep Vein Open Last Admin: 01/18/19 17:26 Dose: 10 ml Sodium Chloride (Saline Flush) 10 ml FLUSH ASDIRECTED PRN PRN Reason: Keep Vein Open Last Admin: 01/18/19 17:27 Dose: 10 ml Succinylcholine Chloride (Quelicin) Confirm Administered Dose 200 mg .ROUTE .STK -MED ONE Stop: 01/18/19 19:40 Vancomycin HCl (Vancomycin) 0 gm IV .PHARMACY TO DOSE [facility] Stop: 01/19/19 08:00 - Exam Quality Assessment: Supplemental Oxygen, Central Line/PICC, Urine Catheter, Restraints General: No Acute Distress, Sedated. No: Alert Lungs: Clear to Auscultation, Normal Respiratory Effort, Decreased Breath Sounds (mild left lung base) Cardiovascular: Regular Rate, Regular Rhythm, No Murmurs GI/Abdominal Exam: Normal Bowel Sounds, Soft, No Distention, Other (obese) Extremities: Pedal Edema (both ankles and lower 1/3 of leg). No: Increased Warmth Skin: Warm, Dry Psy/Mental Status: No: Alert, Agitated Physical Findings Comments:: PICC site right AC fossa with no bleeding or erythema - Problem List Review Problem List Initiated/Reviewed/Updated: Yes - My Orders Last 24 Hours: My Active Orders 01/19/19 09:40 Albuterol [Proventil Neb Soln] 2.5 mg NEB Q2H PRN 01/20/19 08:30 Lactated Ringers [Ringers, Lactated] 1,000 ml IV ASDIRECTED 01/21/19 05:00 BASIC METABOLIC PANEL,BMP [CHEM] Timed BLOOD GAS ARTERIAL [BG] Timed CBC W/O DIFF,HEMOGRAM [HEME] Timed (1) MAGNESIUM [CHEM] Timed 01/21/19 07:00 RT Ventilator Weaning [RC] DAILY - Plan Plan:: ASSESSMENT AND PLAN PNEUMONIA WITH SEPTIC SHOCK - clinically he has stabilized and is off vasopressors. He has some evidence for increased volume today as he recovers from his sepsis. Cultures are negative at this time. White blood cell count trending down. -Follow-up cultures -IV fluids at to keep open -Dose of furosemide this morning -IV steroids -IV antibiotic therapy; azithromycin, vancomycin, Pip/Tazo, pending culture results (plan to discontinue vancomycin tomorrow if cultures still negative) HYPOXIC AND HYPERCAPNIC RESPIRATORY FAILURE - secondary to pneumonia and underlying COPD. Slowly improving with management as above. Peak pressures are are stable and FiO2 is at 40%. -Diuresis as above -Intubation and mechanical ventilation, PEEP currently at 8 and will try to titrate today -Nebulized albuterol and DuoNeb's -Solu-Medrol 40 mg IV every 6 hours -Daily chest x-ray -I would anticipate we will be able to start weaning trials in the morning COPD - he may also have a component of obesity related hypoventilation -Management as above CHRONIC KIDNEY DISEASE STAGE III - kidney function stable -Sauceda catheter to closely monitor urine output -Follow-up labs for renal function in a.m. MORBID OBESITY WITH BMI GREATER THAN 50 MAINTENANCE ISSUES -DVT prophylaxis; Lovenox 40 mg subcutaneous daily -GI prophylaxis; Protonix 40 mg IV daily -Sauceda catheter; placed to closely monitor urine output -Nutrition; nothing by mouth DISPOSITION - anticipate discharge to home after the hospital stay. Michael Roman M.D.
[2019-01-20] MEDS: Acetylcysteine 20% 200 MG/ML 4 ML Nebulizer Soln SDV INH SCH ×2 (09:41→20:57)
--- NOTE | 2019-01-20 09:49 | CRLCR ---
INDICATION: tube positioning HISTORY: Tube positioning. COMPARISON: 01/20/2019, 0401 hours. TECHNIQUE: Chest, 2 portable views. FINDINGS: Enlargement of the cardiac silhouette. Interstitial type opacities in both lungs, which may indicate pulmonary edema versus pulmonary venous congestion. Blunting of the left lateral costophrenic sulcus, stable. The patient is intubated. The endotracheal tube tip is approximately 3 cm above the mayra. potline monitor leads overlie the patient. Paucity of abdominal bowel gas. IMPRESSION: Endotracheal tube tip is approximately 3 cm above the mayra. Dictated by Neo Love MD @ 01/20/2019 9:46:50 AM Dictated by: Neo Love MD @ 01/20/2019 09:46:55 (Electronically Signed)
--- NOTE | 2019-01-20 13:34 | PN ---
DATE OF SERVICE: 01/20/2019 The patient appears to be clinically stabilizing somewhat. The secretions are fairly loose, and at this point, I do not think we will need to proceed with further bronchoscopy. We will sign off on the case at this point with reconsultation and surgery as needed. Rangel Butt MD /[id number]
--- NOTE | 2019-01-20 14:12 | OR ---
DATE OF PROCEDURE: 01/19/2019 PREOPERATIVE DIAGNOSIS: Acute respiratory failure with probable retained pulmonary secretions. POSTOPERATIVE DIAGNOSIS: Diffuse mucoid tracheobronchial secretions. PROCEDURE: Flexible bronchoscopy with the tracheobronchial toilet ([id number]). ANESTHESIA: IV sedation. INDICATION FOR PROCEDURE: This is a 63-year-old presenting once again with respiratory failure and requiring mechanical ventilation. Previously, when this had occurred, the patient has had quite in the way of thickened mucoid secretions. Plan is to do a flexible bronchoscopy with tracheobronchial toilet. Cultures will be also obtained simultaneously. Potential risks of the procedure were reviewed with the patient's family, and they wished to proceed. DETAILS OF PROCEDURE: In the intensive care unit, the patient received some additional propofol for sedation. The flexible bronchoscope was then passed through the pre-existing endotracheal tube, which was confirmed to be in good location above the mayra. As expected, the patient was noted to have diffuse mucoid secretions. These were fairly clear in appearance. These were certainly less dense than what we saw with the original bronchoscopies during similar hospitalization several weeks ago, but were significantly mucoid and somewhat tenacious requiring saline infusion for evacuation. Apparently, the whole tracheobronchial tree was cleared. There was diffuse [id number] bronchitis present, and the retained secretions were then sent for full microbiologic workup including Gram stain, C and S, acid-fast stain and cultures, and fungal stain and cultures. The scope was then withdrawn. The procedure was then concluded. The patient tolerated the procedure well. At this point, we will add DuoNebs and Mucomyst to the regimen to help facilitate clearance of the mucoid secretions. Rangel Butt MD /[id number]
[2019-01-20] MEDS: Sodium Chloride 0.9% 1,000 ML IV SCH (19:54)
[2019-01-20] MEDS: Enoxaparin 40 MG/0.4 ML Syringe SUBCUT SCH (20:56)
[2019-01-20] MEDS: Pantoprazole 40 MG Vial IVPUSH SCH (21:43)
[2019-01-20] MEDS: Azithromycin 500 MG in Sodium Chloride 0.9% 250 ML IV SCH (21:43)
[2019-01-21] MEDS: Piperacillin/Tazobactam/Dext 3.375 GM in Premix Bag 1 BAG IV SCH ×4 (02:58→21:08)
[2019-01-21] MEDS: methylPREDNISolone Sodium Succinate 40 MG/1 ML SDV IVPUSH SCH ×4 (02:58→21:10)
--- NOTE | 2019-01-21 05:53 | CRLCR ---
INDICATION: Intubation, respiratory failure. TECHNIQUE: Chest 1 views COMPARISON: Chest x-ray 01/20/2019 FINDINGS: Cardiovascular and mediastinum: Mild cardiomegaly with endotracheal tube at the midtrachea level. Lungs and pleural spaces: Small left pleural effusion with pulmonary cephalization and mild perihilar interstitial opacities. More dense retrocardiac and left perihilar airspace consolidation. Bones and soft tissues: No significant findings. IMPRESSION: Mild cardiomegaly with pulmonary edema pattern and small left pleural effusion with worsening/increasing airspace consolidation within the left mid to lower lung. Dictated by Gurwinder Cyr MD @ Jan 21 2019 5:40AM Signed by Dr. Gurwinder Cyr @ Jan 21 2019 5:51AM
[2019-01-21] MEDS: Nystatin Topical Powder 15 GM Bottle TOP SCH ×2 (05:56→19:34)
[2019-01-21] MEDS: Albuterol/Ipratropium 3.0-0.5 MG/3 ML Neb Soln NEB SCH ×4 (07:24→21:08)
[2019-01-21] MEDS: Fluticasone-Salmeterol 232-14 MCG Powder Inhalent INH SCH ×2 (07:25→21:10)
[2019-01-21] MEDS: Acetylcysteine 20% 200 MG/ML 4 ML Nebulizer Soln SDV INH SCH ×2 (07:25→21:08)
--- NOTE | 2019-01-21 09:02 | PCM.PN ---
- General Info Date of Service: 01/21/19 Subjective Update: there were no acute events overnight. He did not have any fevers. He has remained on 40% FiO2 and his PEEP was down to 5 this morning. He has rested comfortably with the propofol. He has been moving all 4 extremities with his light sedation. Vital signs have all been stable. We did attempt a weaning trial this morning after the propofol was stopped and the vent was switched to SIMV. He tolerated this for about 30 minutes before developing significant anxiety and tachycardia. While he was off the sedation he was pointing to his abdomen on the right side. Functional Status: Reports: Other (intubated but sedation off ) - Review of Systems General: Denies: Fever - Patient Data Vitals - Most Recent: Last Vital Signs Temp 35.9 C 01/21/19 08:00 Pulse 74 01/21/19 08:00 Resp 24 H 01/21/19 08:00 BP 139/74 01/21/19 08:00 Pulse Ox 92 L 01/21/19 08:00 Weight - Most Recent: 183 kg I&O - Last 24 Hours: Intake & Output 01/20/19 01/21/19 01/21/19 22:59 06:59 14:59 Intake Total 3023 Output Total 1350 2925 Balance -1350 98 Lab Results Last 24 Hours: Laboratory Results - last 24 hr 01/21/19 01/21/19 01/21/19 Range/Units 05:00 05:00 05:00 WBC 11.3 H (4.5-11.0) K/uL RBC 3.92 L (4.30-5.90) M/uL Hgb 10.1 L (12.0-15.0) g/dL Hct 32.3 L (40.0-54.0) % MCV 82 (80-98) fL MCH 26 L (27-31) pg MCHC 31 L (32-36) % Plt Count 329 (150-400) K/uL Puncture Site Line ABG pH 7.481 H (7.350-7.450) ABG pCO2 42.4 H (35.0-42.0) mmHg ABG pO2 88.8 (75.0-100.0) mmHg ABG HCO3 31.3 H (22.0-26.0) mmol/L ABG Total CO2 28.5 H (23.0-27.0) mmol/L ABG O2 Saturation 97.3 (95.0-98.0) % ABG O2 Content 13.9 L (15.0-23.0) %vol ABG Base Excess 7.4 mm/L ABG Hemoglobin 10.4 L (13.5-18.0) g/dL ABG Oxyhemoglobin 94.6 % ABG Carboxyhemoglobin 1.8 H (0.0-1.6) % ABG Methemoglobin 1.0 % Ruddy Test A-line O2 Delivery Device Ventilator Oxygen Flow Rate L Sodium 138 L (140-148) mmol/L Potassium 4.2 (3.6-5.2) mmol/L Chloride 100 (100-108) mmol/L Carbon Dioxide 31 (21-32) mmol/L Anion Gap 11.2 (5.0-14.0) mmol/L BUN 34 H (7-18) mg/dL Creatinine 1.4 H (0.8-1.3) mg/dL Est Cr Clr Drug Dosing 60.13 mL/min Estimated GFR (MDRD) 51 L (>60) Glucose 134 H (74-106) mg/dL Calcium 8.6 (8.5-10.1) mg/dL Magnesium 2.1 (1.8-2.4) mg/dL Petey Results Last 24 Hours: Microbiology 01/18/19 20:57 Gram Stain - Final Tracheal Aspirate Respiratory Culture - Final NORMAL RESPIRATORY PEPITO 2 DAYS 01/19/19 08:05 Gram Stain - Final Bronchial Washings - Lung, Unspecified Respiratory Culture - Final REDUCED NORMAL RESPIRATORY PEPITO 01/19/19 08:05 AFB Specimen Processing Tissue - Final Bronchial Washings - Lung, Unspecified Acid Fast Bacilli Smear - Final Acid Fast Bacilli Culture - Preliminary 01/18/19 17:50 Aerobic Blood Culture - Preliminary Blood - Arm, Left NO GROWTH AFTER 2 DAYS Anaerobic Blood Culture - Preliminary NO GROWTH AFTER 2 DAYS 01/18/19 17:45 Aerobic Blood Culture - Preliminary Blood - Arm, Left NO GROWTH AFTER 2 DAYS Anaerobic Blood Culture - Preliminary NO GROWTH AFTER 2 DAYS Med Orders - Current: Current Medications Acetylcysteine (Mucomyst 20%) 200 mg INH BIDRT [facility] Last Admin: 01/21/19 07:25 Dose: 200 mg Albuterol (Proventil Neb Soln) 2.5 mg NEB Q2H PRN PRN Reason: Shortness Of Breath/wheezing Albuterol/Ipratropium (Duoneb 3.0-0.5 Mg/3 Ml) 3 ml NEB QIDRT [facility] Last Admin: 01/21/19 07:24 Dose: 3 ml Enoxaparin Sodium (Lovenox) 40 mg SUBCUT BEDTIME [facility] Last Admin: 01/20/19 20:56 Dose: 40 mg Furosemide (Lasix) 40 mg IVPUSH ONETIME ONE Stop: 01/21/19 08:59 Azithromycin 500 mg/ Sodium (Chloride) 250 mls @ 250 mls/hr IV Q24H [facility] Last Admin: 01/20/19 21:43 Dose: 250 mls/hr Propofol (Diprivan 100 Ml) 100 mls @ 5.416 mls/hr IV TITRATE [facility]; Protocol Last Titration: 01/21/19 08:40 Dose: 20 mcg/kg/min, 21.664 mls/hr Sodium Chloride (Normal Saline) 1,000 mls @ 0 mls/hr IV ASDIRECTED [facility] Last Admin: 01/20/19 19:54 Dose: 25 mls/hr Piperacillin/Tazobactam/ (Dextrose 3.375 gm/ Premix) 50 mls @ 100 mls/hr IV Q6H [facility] Last Admin: 01/21/19 08:46 Dose: 100 mls/hr Heparin Sodium (Porcine) 5,000 (units/ Sodium Chloride) 501 mls @ 5 mls/hr IV ASDIRECTED [facility] Vancomycin HCl 1.5 gm/ Sodium (Chloride) 250 mls @ 166.667 mls/hr IV Q12H [facility] Last Admin: 01/20/19 23:37 Dose: 166.667 mls/hr Lactated Ringer's (Ringers, Lactated) 1,000 mls @ 25 mls/hr IV ASDIRECTED [facility] Last Admin: 01/20/19 09:59 Dose: 25 mls/hr Methylprednisolone Sodium Succinate (Solu-Medrol) 40 mg IVPUSH Q6H [facility] Last Admin: 01/21/19 08:41 Dose: 40 mg Morphine Sulfate (Morphine) 4 mg IVPUSH Q2H PRN PRN Reason: Pain Nystatin (Nystop) 0 gm TOP QID [facility] Last Admin: 01/21/19 05:56 Dose: 1 applic Ondansetron HCl (Zofran) 4 mg IV Q4H PRN PRN Reason: Nausea/Vomiting Pantoprazole Sodium (Protonix Iv) 40 mg IVPUSH Q24H [facility] Last Admin: 01/20/19 21:43 Dose: 40 mg Fluticasone/Salmeterol (Fluticasone-Salmeterol 232-14 Mcg Powder Inha) 1 puff INH BIDRT [facility] Last Admin: 01/21/19 07:25 Dose: Not Given Sodium Chloride (Saline Flush) 10 ml FLUSH ASDIRECTED PRN PRN Reason: Keep Vein Open Discontinued Medications Albuterol (Proventil Neb Soln) 2.5 mg NEB Q4H PRN PRN Reason: Shortness Of Breath/wheezing Albuterol/Ipratropium (Duoneb 3.0-0.5 Mg/3 Ml) 3 ml NEB QID [facility] Last Admin: 01/18/19 22:04 Dose: 3 ml Albuterol/Ipratropium (Duoneb 3.0-0.5 Mg/3 Ml) 3 ml INH ASDIRECTED PRN PRN Reason: Shortness of Breath Furosemide (Lasix) 40 mg IVPUSH ONETIME ONE Stop: 01/20/19 08:16 Last Admin: 01/20/19 09:48 Dose: 40 mg Furosemide (Lasix) 40 mg IVPUSH ONETIME ONE Stop: 01/20/19 21:01 Last Admin: 01/20/19 20:50 Dose: 40 mg Heparin Sodium (Porcine) (Heparin Sodium) Confirm Administered Dose 5,000 units .ROUTE .STK-MED ONE Stop: 01/18/19 20:00 Last Admin: 01/18/19 21:54 Dose: 5,000 units Lactated Ringer's (Ringers, Lactated) 1,000 mls @ 999 mls/hr IV BOLUS ONE Stop: 01/18/19 19:37 Last Admin: 01/18/19 21:50 Dose: 999 mls/hr Levofloxacin/Dextrose 750 mg/ (Premix) 150 mls @ 100 mls/hr IV ONETIME ONE Stop: 01/18/19 20:06 Last Admin: 01/18/19 18:42 Dose: 100 mls/hr Norepinephrine Bitartrate 4 mg (/ Dextrose/Water) 250 mls @ 7.5 mls/hr IV TITRATE [facility]; Protocol Last Titration: 01/19/19 16:27 Dose: 0 mcg/min, 0 mls/hr Lactated Ringer's (Ringers, Lactated) 1,000 mls @ 1,000 mls/hr IV ASDIRECTED [facility] Stop: 01/18/19 21:01 Propofol (Diprivan 100 Ml) Confirm Administered Dose 100 mls @ as directed .ROUTE .STK-MED ONE Stop: 01/18/19 20:01 Last Admin: 01/18/19 22:00 Dose: Not Given Lactated Ringer's (Ringers, Lactated) 1,000 mls @ 125 mls/hr IV ASDIRECTED [facility] Last Admin: 01/19/19 06:53 Dose: 125 mls/hr Norepinephrine Bitartrate 4 mg (/ Dextrose/Water) 250 mls @ 7.5 mls/hr IV TITRATE [facility]; Protocol Piperacillin Sod/Tazobactam (Sod 3.375 gm/ Sodium Chloride) 50 mls @ 100 mls/ hr IV Q6H [facility] Last Admin: 01/19/19 03:00 Dose: 100 mls/hr Vancomycin HCl 1 gm/ Sodium (Chloride) 250 mls @ 166.667 mls/hr IV Q12H [facility] Last Admin: 01/19/19 06:59 Dose: Not Given Lactated Ringer's (Ringers, Lactated) 1,000 mls @ 999 mls/hr IV BOLUS ONE Stop: 01/18/19 22:51 Last Admin: 01/18/19 22:09 Dose: 999 mls/hr Sodium Chloride (Normal Saline) 500 mls @ 1 mls/hr IV .BOLUS ONE Stop: 02/08/19 17:53 Last Admin: 01/18/19 22:14 Dose: 1 mls/hr Vancomycin HCl 1 gm/ Sodium (Chloride) 250 mls @ 166.667 mls/hr IV Q12H [facility] Last Admin: 01/19/19 00:26 Dose: 166.667 mls/hr Lactated Ringer's (Ringers, Lactated) 1,000 mls @ 75 mls/hr IV ASDIRECTED [facility] Last Admin: 01/20/19 07:20 Dose: 75 mls/hr Acetaminophen 1,000 mg/ Premix 100 mls @ 400 mls/hr IV NOW ONE Stop: 01/19/19 20:19 Last Admin: 01/19/19 20:33 Dose: 400 mls/hr Lidocaine HCl (Xylocaine 2% Viscous) Confirm Administered Dose 15 ml .ROUTE .STK -MED ONE Stop: 01/19/19 06:47 Lidocaine HCl (Xylocaine 4% Top Soln) Confirm Administered Dose 50 ml .ROUTE .STK-MED ONE Stop: 01/19/19 06:47 Last Admin: 01/19/19 07:45 Dose: 50 ml Lorazepam (Ativan) 1 mg IVPUSH ONETIME ONE Stop: 01/18/19 18:10 Last Admin: 01/18/19 18:17 Dose: 1 mg Nystatin (Nystop) 0 gm TOP QID [facility] Last Admin: 01/19/19 05:33 Dose: 1 applic Nystatin (Nystop) Confirm Administered Dose 15 gm .ROUTE .STK-MED ONE Stop: 01/19/19 00:38 Last Admin: 01/19/19 02:45 Dose: Not Given Pantoprazole Sodium (Protonix Iv) 40 mg IVPUSH Q24H [facility] Last Admin: 01/18/19 22:01 Dose: 40 mg Propofol (Diprivan 20 Ml) Confirm Administered Dose 200 mg .ROUTE .STK-MED ONE Stop: 01/18/19 19:40 Fluticasone/Salmeterol (Fluticasone-Salmeterol 232-14 Mcg Powder Inha) 1 puff INH BID [facility] Last Admin: 01/18/19 22:10 Dose: Not Given Sodium Chloride (Saline Flush) 10 ml FLUSH ASDIRECTED PRN PRN Reason: Keep Vein Open Last Admin: 01/18/19 17:26 Dose: 10 ml Sodium Chloride (Saline Flush) 10 ml FLUSH ASDIRECTED PRN PRN Reason: Keep Vein Open Last Admin: 01/18/19 17:27 Dose: 10 ml Succinylcholine Chloride (Quelicin) Confirm Administered Dose 200 mg .ROUTE .STK -MED ONE Stop: 01/18/19 19:40 Vancomycin HCl (Vancomycin) 0 gm IV .PHARMACY TO DOSE [facility] Stop: 01/19/19 08:00 - Exam Quality Assessment: Supplemental Oxygen, Central Line/PICC, Urine Catheter, Restraints General: Alert, Cooperative, No Acute Distress HEENT: Pupils Equal Lungs: Normal Respiratory Effort, Decreased Breath Sounds (left lung base), Crackles (left lung base) Cardiovascular: Regular Rate, Regular Rhythm GI/Abdominal Exam: Soft, No Distention, Abnormal Bowel Sounds (hypoactive) Extremities: No Pedal Edema. No: Increased Warmth Skin: Warm, Dry Psy/Mental Status: Alert. No: Agitated - Problem List Review Problem List Initiated/Reviewed/Updated: Yes - My Orders Last 24 Hours: My Active Orders 01/20/19 08:30 Lactated Ringers [Ringers, Lactated] 1,000 ml IV ASDIRECTED 01/21/19 07:00 RT Ventilator Weaning [RC] DAILY 01/21/19 08:58 Furosemide [Lasix] 40 mg IVPUSH ONETIME ONE Morphine 4 mg IVPUSH Q2H PRN 01/22/19 05:00 BLOOD GAS ARTERIAL [BG] Timed CBC W/O DIFF,HEMOGRAM [HEME] Timed (1) COMPREHENSIVE METABOLIC PN,CMP [CHEM] Timed - Plan Plan:: ASSESSMENT AND PLAN PNEUMONIA WITH SEPTIC SHOCK - clinically he has stabilized and is off vasopressors. volume status is improving. No fevers. Cultures negative. Chest x- ray suggests a slight increase in the infiltrate in the left lower lung. White count is trending down and clinically he is doing better. -Follow-up cultures -IV fluids at to keep open -Dose of furosemide this morning -IV steroids -IV antibiotic therapy; azithromycin, Pip/Tazo -discontinue vancomycin HYPOXIC AND HYPERCAPNIC RESPIRATORY FAILURE - secondary to pneumonia and underlying COPD. Slowly improving with management as above. chest x-ray still shows some evidence for ongoing cephalization of vessels. did not do well with weaning trial this morning. Hopefully a little bit more diuresis will allow for better weaning trial tomorrow. -Diuresis as above -Intubation and mechanical ventilation, PEEP down 5 -Nebulized albuterol and DuoNeb's -Solu-Medrol 40 mg IV every 6 hours -Daily chest x-ray -daily weaning trials COPD - he may also have a component of obesity related hypoventilation -Management as above CHRONIC KIDNEY DISEASE STAGE III - kidney function stable -Sauceda catheter to closely monitor urine output -Follow-up labs for renal function in a.m. MORBID OBESITY WITH BMI GREATER THAN 50 MAINTENANCE ISSUES -DVT prophylaxis; Lovenox 40 mg subcutaneous daily -GI prophylaxis; Protonix 40 mg IV daily -Asuceda catheter; placed to closely monitor urine output any critical patient and needs to remain in place at this time -Nutrition; nothing by mouth DISPOSITION - anticipate discharge to [facility] after the hospital stay. Michael Roman M.D.
[2019-01-21] MEDS: Morphine 4 MG/ML Syringe IVPUSH PRN ×4 (09:19→18:17)
[2019-01-21] MEDS ORDERED: Furosemide 40 MG/4 ML VIAL IVPUSH ONE (10:00)
[2019-01-21] MEDS: Heparin Sodium 5,000 UNITS in Sodium Chloride 0.9% 500 ML IV SCH (16:37)
[2019-01-21] MEDS: Lactated Ringers 1,000 ML IV SCH (18:11)
[2019-01-21] MEDS: Enoxaparin 40 MG/0.4 ML Syringe SUBCUT SCH (21:10)
[2019-01-21] MEDS: Pantoprazole 40 MG Vial IVPUSH SCH (21:10)
[2019-01-21] MEDS: Azithromycin 500 MG in Sodium Chloride 0.9% 250 ML IV SCH (21:10)
[2019-01-22] MEDS: Morphine 4 MG/ML Syringe IVPUSH PRN ×7 (00:24→22:50)
[2019-01-22] MEDS: methylPREDNISolone Sodium Succinate 40 MG/1 ML SDV IVPUSH SCH ×4 (02:45→20:56)
[2019-01-22] MEDS: Piperacillin/Tazobactam/Dext 3.375 GM in Premix Bag 1 BAG IV SCH ×4 (02:45→20:57)
--- NOTE | 2019-01-22 04:21 | CRLCR ---
INDICATION: Respiratory failure, intubated. TECHNIQUE: Chest 1 views COMPARISON: Chest x-ray 01/21/2019 FINDINGS: Cardiovascular and mediastinum: Cardiomegaly with endotracheal tube at the midtrachea level and peripheral catheter extends to at least the distal superior vena cava. Lungs and pleural spaces: Small left pleural effusion with bilateral reticulonodular interstitial opacities as well as airspace disease in the lung bases, greater on the left. Bones and soft tissues: No significant findings. IMPRESSION: Cardiomegaly with small left pleural effusion and bilateral interstitial and alveolar opacities which are fairly similar to the study of 1 day prior. Dictated by Gurwinder Cyr MD @ Jan 22 2019 4:18AM Signed by Dr. Gurwinder Cyr @ Jan 22 2019 4:20AM
[2019-01-22] MEDS: Fluticasone-Salmeterol 232-14 MCG Powder Inhalent INH SCH ×2 (07:17→20:41)
[2019-01-22] MEDS: Albuterol/Ipratropium 3.0-0.5 MG/3 ML Neb Soln NEB SCH ×4 (07:17→20:55)
[2019-01-22] MEDS: Acetylcysteine 20% 200 MG/ML 4 ML Nebulizer Soln SDV INH SCH ×2 (07:17→20:57)
--- NOTE | 2019-01-22 09:26 | PCM.PN ---
- General Info Date of Service: 01/22/19 Subjective Update: There were no acute events overnight. Patient rested well and oxygenation was relatively stable though his FiO2 did need to be increased slightly. He is lightly sedated this morning and unable to follow commands. He does move all 4 extremities spontaneously. He does appear to be adjusting himself in bed with apparent back discomfort. White count is now normal. Cultures remain negative. PCO2 has risen to the low 50s after his PEEP was decreased yesterday. Functional Status: Reports: Other (intubated and sedated) - Review of Systems General: Denies: Fever - Patient Data Vitals - Most Recent: Last Vital Signs Temp 35 C L 01/22/19 07:00 Pulse 61 01/22/19 07:09 Resp 20 01/22/19 07:00 BP 162/78 H 01/22/19 07:51 Pulse Ox 91 L 01/22/19 07:00 Weight - Most Recent: 174.9 kg I&O - Last 24 Hours: Intake & Output 01/21/19 01/22/19 01/22/19 22:59 06:59 14:59 Intake Total 1393 979 Output Total 875 900 Balance 518 79 Lab Results Last 24 Hours: Laboratory Results - last 24 hr 01/22/19 01/22/19 01/22/19 Range/Units 04:15 04:15 04:15 WBC 9.3 (4.5-11.0) K/uL RBC 4.00 L (4.30-5.90) M/uL Hgb 10.4 L (12.0-15.0) g/dL Hct 32.9 L (40.0-54.0) % MCV 82 (80-98) fL MCH 26 L (27-31) pg MCHC 32 (32-36) % Plt Count 323 (150-400) K/uL Puncture Site A-line ABG pH 7.453 H (7.350-7.450) ABG pCO2 47.4 H (35.0-42.0) mmHg ABG pO2 66.4 L (75.0-100.0) mmHg ABG HCO3 32.6 H (22.0-26.0) mmol/L ABG Total CO2 29.9 H (23.0-27.0) mmol/L ABG O2 Saturation 92.7 L (95.0-98.0) % ABG O2 Content 13.6 L (15.0-23.0) %vol ABG Base Excess 8.0 mm/L ABG Hemoglobin 10.5 L (13.5-18.0) g/dL ABG Oxyhemoglobin 91.7 % ABG Carboxyhemoglobin 0.6 (0.0-1.6) % ABG Methemoglobin 0.5 % Ruddy Test A-line O2 Delivery Device Ventilator Sodium 138 L (140-148) mmol/L Potassium 4.1 (3.6-5.2) mmol/L Chloride 100 (100-108) mmol/L Carbon Dioxide 33 H (21-32) mmol/L Anion Gap 9.1 (5.0-14.0) mmol/L BUN 35 H (7-18) mg/dL Creatinine 1.2 (0.8-1.3) mg/dL Est Cr Clr Drug Dosing 70.15 mL/min Estimated GFR (MDRD) > 60 (>60) Glucose 140 H (74-106) mg/dL Calcium 8.5 (8.5-10.1) mg/dL Total Bilirubin 0.3 (0.2-1.0) mg/dL AST 31 (15-37) U/L ALT 29 (12-78) U/L Alkaline Phosphatase 70 (46-116) U/L Total Protein 6.8 (6.4-8.2) g/dL Albumin 2.7 L (3.4-5.0) g/dL Globulin 4.1 H (2.3-3.5) g/dL Albumin/Globulin Ratio 0.7 L (1.2-2.2) Petey Results Last 24 Hours: Microbiology 01/18/19 17:45 Aerobic Blood Culture - Preliminary Blood - Arm, Left NO GROWTH AFTER 3 DAYS Anaerobic Blood Culture - Preliminary NO GROWTH AFTER 3 DAYS 01/18/19 17:50 Aerobic Blood Culture - Preliminary Blood - Arm, Left NO GROWTH AFTER 3 DAYS Anaerobic Blood Culture - Preliminary NO GROWTH AFTER 3 DAYS 01/19/19 08:05 AFB Specimen Processing Tissue - Final Bronchial Washings - Lung, Unspecified Acid Fast Bacilli Smear - Final Acid Fast Bacilli Culture - Preliminary 01/18/19 20:57 Gram Stain - Final Tracheal Aspirate Respiratory Culture - Final NORMAL RESPIRATORY PEPITO 2 DAYS 01/19/19 08:05 Gram Stain - Final Bronchial Washings - Lung, Unspecified Respiratory Culture - Final REDUCED NORMAL RESPIRATORY PEPITO Med Orders - Current: Current Medications Acetylcysteine (Mucomyst 20%) 200 mg INH BIDRT [facility] Last Admin: 01/22/19 07:17 Dose: 200 mg Albuterol (Proventil Neb Soln) 2.5 mg NEB Q2H PRN PRN Reason: Shortness Of Breath/wheezing Albuterol/Ipratropium (Duoneb 3.0-0.5 Mg/3 Ml) 3 ml NEB QIDRT [facility] Last Admin: 01/22/19 07:17 Dose: 3 ml Enoxaparin Sodium (Lovenox) 40 mg SUBCUT BEDTIME [facility] Last Admin: 01/21/19 21:10 Dose: 40 mg Furosemide (Lasix) 40 mg IVPUSH ONETIME ONE Stop: 01/22/19 09:24 Azithromycin 500 mg/ Sodium (Chloride) 250 mls @ 250 mls/hr IV Q24H [facility] Last Admin: 01/21/19 21:10 Dose: 250 mls/hr Propofol (Diprivan 100 Ml) 100 mls @ 5.416 mls/hr IV TITRATE [facility]; Protocol Last Admin: 01/22/19 08:47 Dose: 40 mcg/kg/min, 43.327 mls/hr Sodium Chloride (Normal Saline) 1,000 mls @ 0 mls/hr IV ASDIRECTED [facility] Last Admin: 01/20/19 19:54 Dose: 25 mls/hr Piperacillin/Tazobactam/ (Dextrose 3.375 gm/ Premix) 50 mls @ 100 mls/hr IV Q6H [facility] Last Admin: 01/22/19 08:46 Dose: 100 mls/hr Heparin Sodium (Porcine) 5,000 (units/ Sodium Chloride) 501 mls @ 5 mls/hr IV ASDIRECTED [facility] Last Admin: 01/21/19 16:37 Dose: 5 mls/hr Lactated Ringer's (Ringers, Lactated) 1,000 mls @ 25 mls/hr IV ASDIRECTED [facility] Last Admin: 01/21/19 18:11 Dose: 25 mls/hr Methylprednisolone Sodium Succinate (Solu-Medrol) 40 mg IVPUSH Q6H [facility] Last Admin: 01/22/19 02:45 Dose: 40 mg Morphine Sulfate (Morphine) 4 mg IVPUSH Q2H PRN PRN Reason: Pain Last Admin: 01/22/19 03:57 Dose: 4 mg Nystatin (Nystop) 0 gm TOP TID PRN PRN Reason: Rash Ondansetron HCl (Zofran) 4 mg IV Q4H PRN PRN Reason: Nausea/Vomiting Pantoprazole Sodium (Protonix Iv) 40 mg IVPUSH Q24H [facility] Last Admin: 01/21/19 21:10 Dose: 40 mg Fluticasone/Salmeterol (Fluticasone-Salmeterol 232-14 Mcg Powder Inha) 1 puff INH BIDRT [facility] Last Admin: 01/22/19 07:17 Dose: Not Given Sodium Chloride (Saline Flush) 10 ml FLUSH ASDIRECTED PRN PRN Reason: Keep Vein Open Discontinued Medications Albuterol (Proventil Neb Soln) 2.5 mg NEB Q4H PRN PRN Reason: Shortness Of Breath/wheezing Albuterol/Ipratropium (Duoneb 3.0-0.5 Mg/3 Ml) 3 ml NEB QID [facility] Last Admin: 01/18/19 22:04 Dose: 3 ml Albuterol/Ipratropium (Duoneb 3.0-0.5 Mg/3 Ml) 3 ml INH ASDIRECTED PRN PRN Reason: Shortness of Breath Furosemide (Lasix) 40 mg IVPUSH ONETIME ONE Stop: 01/20/19 08:16 Last Admin: 01/20/19 09:48 Dose: 40 mg Furosemide (Lasix) 40 mg IVPUSH ONETIME ONE Stop: 01/20/19 21:01 Last Admin: 01/20/19 20:50 Dose: 40 mg Furosemide (Lasix) 40 mg IVPUSH ONETIME ONE Stop: 01/21/19 10:01 Last Admin: 01/21/19 09:30 Dose: 40 mg Heparin Sodium (Porcine) (Heparin Sodium) Confirm Administered Dose 5,000 units .ROUTE .STK-MED ONE Stop: 01/18/19 20:00 Last Admin: 01/18/19 21:54 Dose: 5,000 units Lactated Ringer's (Ringers, Lactated) 1,000 mls @ 999 mls/hr IV BOLUS ONE Stop: 01/18/19 19:37 Last Admin: 01/18/19 21:50 Dose: 999 mls/hr Levofloxacin/Dextrose 750 mg/ (Premix) 150 mls @ 100 mls/hr IV ONETIME ONE Stop: 01/18/19 20:06 Last Admin: 01/18/19 18:42 Dose: 100 mls/hr Norepinephrine Bitartrate 4 mg (/ Dextrose/Water) 250 mls @ 7.5 mls/hr IV TITRATE [facility]; Protocol Last Titration: 01/19/19 16:27 Dose: 0 mcg/min, 0 mls/hr Lactated Ringer's (Ringers, Lactated) 1,000 mls @ 1,000 mls/hr IV ASDIRECTED [facility] Stop: 01/18/19 21:01 Propofol (Diprivan 100 Ml) Confirm Administered Dose 100 mls @ as directed .ROUTE .STK-MED ONE Stop: 01/18/19 20:01 Last Admin: 01/18/19 22:00 Dose: Not Given Lactated Ringer's (Ringers, Lactated) 1,000 mls @ 125 mls/hr IV ASDIRECTED [facility] Last Admin: 01/19/19 06:53 Dose: 125 mls/hr Norepinephrine Bitartrate 4 mg (/ Dextrose/Water) 250 mls @ 7.5 mls/hr IV TITRATE [facility]; Protocol Piperacillin Sod/Tazobactam (Sod 3.375 gm/ Sodium Chloride) 50 mls @ 100 mls/ hr IV Q6H [facility] Last Admin: 01/19/19 03:00 Dose: 100 mls/hr Vancomycin HCl 1 gm/ Sodium (Chloride) 250 mls @ 166.667 mls/hr IV Q12H [facility] Last Admin: 01/19/19 06:59 Dose: Not Given Lactated Ringer's (Ringers, Lactated) 1,000 mls @ 999 mls/hr IV BOLUS ONE Stop: 01/18/19 22:51 Last Admin: 01/18/19 22:09 Dose: 999 mls/hr Sodium Chloride (Normal Saline) 500 mls @ 1 mls/hr IV .BOLUS ONE Stop: 02/08/19 17:53 Last Admin: 01/18/19 22:14 Dose: 1 mls/hr Vancomycin HCl 1 gm/ Sodium (Chloride) 250 mls @ 166.667 mls/hr IV Q12H [facility] Last Admin: 01/19/19 00:26 Dose: 166.667 mls/hr Vancomycin HCl 1.5 gm/ Sodium (Chloride) 250 mls @ 166.667 mls/hr IV Q12H [facility] Last Admin: 01/21/19 19:34 Dose: Not Given Lactated Ringer's (Ringers, Lactated) 1,000 mls @ 75 mls/hr IV ASDIRECTED [facility] Last Admin: 01/20/19 07:20 Dose: 75 mls/hr Acetaminophen 1,000 mg/ Premix 100 mls @ 400 mls/hr IV NOW ONE Stop: 01/19/19 20:19 Last Admin: 01/19/19 20:33 Dose: 400 mls/hr Lidocaine HCl (Xylocaine 2% Viscous) Confirm Administered Dose 15 ml .ROUTE .STK -MED ONE Stop: 01/19/19 06:47 Lidocaine HCl (Xylocaine 4% Top Soln) Confirm Administered Dose 50 ml .ROUTE .STK-MED ONE Stop: 01/19/19 06:47 Last Admin: 01/19/19 07:45 Dose: 50 ml Lorazepam (Ativan) 1 mg IVPUSH ONETIME ONE Stop: 01/18/19 18:10 Last Admin: 01/18/19 18:17 Dose: 1 mg Nystatin (Nystop) 0 gm TOP QID [facility] Last Admin: 01/19/19 05:33 Dose: 1 applic Nystatin (Nystop) Confirm Administered Dose 15 gm .ROUTE .STK-MED ONE Stop: 01/19/19 00:38 Last Admin: 01/19/19 02:45 Dose: Not Given Nystatin (Nystop) 0 gm TOP QID [facility] Last Admin: 01/21/19 19:34 Dose: Not Given Pantoprazole Sodium (Protonix Iv) 40 mg IVPUSH Q24H [facility] Last Admin: 01/18/19 22:01 Dose: 40 mg Propofol (Diprivan 20 Ml) Confirm Administered Dose 200 mg .ROUTE .STK-MED ONE Stop: 01/18/19 19:40 Fluticasone/Salmeterol (Fluticasone-Salmeterol 232-14 Mcg Powder Inha) 1 puff INH BID [facility] Last Admin: 01/18/19 22:10 Dose: Not Given Sodium Chloride (Saline Flush) 10 ml FLUSH ASDIRECTED PRN PRN Reason: Keep Vein Open Last Admin: 01/18/19 17:26 Dose: 10 ml Sodium Chloride (Saline Flush) 10 ml FLUSH ASDIRECTED PRN PRN Reason: Keep Vein Open Last Admin: 01/18/19 17:27 Dose: 10 ml Succinylcholine Chloride (Quelicin) Confirm Administered Dose 200 mg .ROUTE .STK -MED ONE Stop: 01/18/19 19:40 Vancomycin HCl (Vancomycin) 0 gm IV .PHARMACY TO DOSE [facility] Stop: 01/19/19 08:00 - Exam Quality Assessment: Supplemental Oxygen, Central Line/PICC, Urine Catheter, Restraints General: No Acute Distress, Sedated. No: Alert, Cooperative HEENT: Pupils Equal Lungs: Clear to Auscultation, Normal Respiratory Effort, Decreased Breath Sounds (mild left lung base) Cardiovascular: Regular Rate, Regular Rhythm, No Murmurs GI/Abdominal Exam: Normal Bowel Sounds, Soft, Non-Tender, No Distention, Other ( obese) Extremities: No Pedal Edema. No: Increased Warmth Skin: Warm, Dry Psy/Mental Status: No: Alert, Agitated - Problem List Review Problem List Initiated/Reviewed/Updated: Yes - My Orders Last 24 Hours: My Active Orders 01/21/19 08:58 Morphine 4 mg IVPUSH Q2H PRN 01/21/19 10:23 Nystatin [Nystop] 0 gm TOP TID PRN 01/22/19 09:23 Furosemide [Lasix] 40 mg IVPUSH ONETIME ONE 01/22/19 12:00 BLOOD GAS ARTERIAL [BG] Timed 01/22/19 21:00 Furosemide [Lasix] 40 mg IVPUSH ONETIME ONE 01/23/19 05:00 BASIC METABOLIC PANEL,BMP [CHEM] Timed BLOOD GAS ARTERIAL [BG] Timed CBC W/O DIFF,HEMOGRAM [HEME] Timed (1) - Plan Plan:: ASSESSMENT AND PLAN PNEUMONIA WITH SEPTIC SHOCK - clinically he has stabilized and is off vasopressors. volume status is improving but not quite normalized. He has not had any fevers. Cultures are all negative. -Follow-up cultures -IV fluids at to keep open -Dose of furosemide again this morning -IV steroids -IV antibiotic therapy; azithromycin, Pip/Tazo (started 12/18) HYPOXIC AND HYPERCAPNIC RESPIRATORY FAILURE - secondary to pneumonia and underlying COPD. Slowly improving with management as above. chest x-ray stable. He has more hypercapnia this morning after his PEEP was decreased yesterday. I suspect that his anxiety will be a significant barrier to extubation. Hopefully with a little more diuresis extubation will be in the near future. -Diuresis as above -Intubation and mechanical ventilation, PEEP up to 7 -Nebulized albuterol and DuoNeb's -Solu-Medrol 40 mg IV every 6 hours -Daily chest x-ray -daily weaning trials COPD - he may also have a component of obesity related hypoventilation -Management as above CHRONIC KIDNEY DISEASE STAGE III - kidney function stable -Sauceda catheter to closely monitor urine output -Follow-up labs for renal function in a.m. MORBID OBESITY WITH BMI GREATER THAN 50 MAINTENANCE ISSUES -DVT prophylaxis; Lovenox 40 mg subcutaneous daily -GI prophylaxis; Protonix 40 mg IV daily -Sauceda catheter; placed to closely monitor urine output any critical patient and needs to remain in place at this time -Nutrition; nothing by mouth DISPOSITION - anticipate discharge to senior care after the hospital stay. Michael Roman M.D.
[2019-01-22] MEDS ORDERED: Furosemide 40 MG/4 ML VIAL IVPUSH ONE ×2 (10:00→21:00)
[2019-01-22] MEDS: Sodium Chloride 0.9% 1,000 ML IV SCH ×2 (16:07→23:00)
[2019-01-22] MEDS: Lactated Ringers 1,000 ML IV SCH (19:00)
[2019-01-22] MEDS: Enoxaparin 40 MG/0.4 ML Syringe SUBCUT SCH (20:56)
[2019-01-22] MEDS: Pantoprazole 40 MG Vial IVPUSH SCH (22:02)
[2019-01-22] MEDS: Azithromycin 500 MG in Sodium Chloride 0.9% 250 ML IV SCH (22:02)
[2019-01-23] MEDS: Morphine 4 MG/ML Syringe IVPUSH PRN ×4 (01:12→21:27)
[2019-01-23] MEDS: Piperacillin/Tazobactam/Dext 3.375 GM in Premix Bag 1 BAG IV SCH ×4 (02:54→20:50)
[2019-01-23] MEDS: methylPREDNISolone Sodium Succinate 40 MG/1 ML SDV IVPUSH SCH ×3 (02:54→15:14)
[2019-01-23] MEDS: Nystatin Topical Powder 15 GM Bottle TOP PRN (03:43)
--- NOTE | 2019-01-23 06:11 | CRLCR ---
HISTORY: Respiratory failure. TECHNIQUE: One view of the chest. COMPARISON: 01/22/2019. FINDINGS: Endotracheal tube terminates approximately 4.5 cm above the mayra. Right-sided PICC line catheter terminating within the SVC. Persistent opacity left lung base may relate to a small pleural effusion and/or basilar atelectasis or infiltrate. No change in mild prominence of the pulmonary interstitium. There is no pneumothorax. Cardiac size is stable. IMPRESSION: No change in opacity at the left lung base which may relate to small left pleural effusion and/or atelectasis or infiltrate. Dictated by Jack Mayo MD @ 01/23/2019 6:09:35 AM Dictated by: Jack Mayo MD @ 01/23/2019 06:09:39 (Electronically Signed)
[2019-01-23] MEDS: Acetylcysteine 20% 200 MG/ML 4 ML Nebulizer Soln SDV INH SCH (07:16)
[2019-01-23] MEDS: Fluticasone-Salmeterol 232-14 MCG Powder Inhalent INH SCH ×2 (07:16→20:34)
[2019-01-23] MEDS: Albuterol/Ipratropium 3.0-0.5 MG/3 ML Neb Soln NEB SCH ×4 (07:16→20:50)
[2019-01-23] MEDS: Doxycycline 100 MG in Sodium Chloride 0.9% 100 ML IV SCH ×2 (09:41→21:51)
--- NOTE | 2019-01-23 10:08 | PCM.PN ---
- General Info Date of Service: 01/23/19 Subjective Update: There were no acute events overnight. FiO2 was increased to 50 and then back down to 45. Patient remains intubated and sedated. No fevers. Excellent response to diuresis yesterday. White blood cell count remains normal. Kidney function is stable. Was able to tolerate SIMV for several hours this morning. Functional Status: Reports: Other (intubated and sedated) - Review of Systems General: Denies: Fever - Patient Data Vitals - Most Recent: Last Vital Signs Temp 36.6 C 01/23/19 08:20 Pulse 68 01/23/19 09:00 Resp 21 H 01/23/19 09:00 BP 127/47 L 01/23/19 09:00 Pulse Ox 92 L 01/23/19 09:00 Weight - Most Recent: 168.3 kg I&O - Last 24 Hours: Intake & Output 01/22/19 01/23/19 01/23/19 22:59 06:59 14:59 Intake Total 1235 1472 Output Total 1775 1025 Balance -540 447 Lab Results Last 24 Hours: Laboratory Results - last 24 hr 01/22/19 01/23/19 01/23/19 Range/Units 12:00 05:00 05:00 WBC 9.5 (4.5-11.0) K/uL RBC 4.20 L (4.30-5.90) M/uL Hgb 10.7 L (12.0-15.0) g/dL Hct 34.6 L (40.0-54.0) % MCV 82 (80-98) fL MCH 26 L (27-31) pg MCHC 31 L (32-36) % Plt Count 318 (150-400) K/uL Puncture Site A-line A-line ABG pH 7.397 7.485 H (7.350-7.450) ABG pCO2 55.7 H 46.8 H (35.0-42.0) mmHg ABG pO2 70.7 L 109.0 H (75.0-100.0) mmHg ABG HCO3 33.6 H 34.9 H (22.0-26.0) mmol/L ABG Total CO2 30.9 H 31.4 H (23.0-27.0) mmol/L ABG O2 Saturation 92.6 L 98.3 H (95.0-98.0) % ABG O2 Content 14.0 L 15.2 (15.0-23.0) %vol ABG Base Excess 7.8 10.4 mm/L ABG Hemoglobin 10.9 L 11.1 L (13.5-18.0) g/dL ABG Oxyhemoglobin 91.4 96.1 % ABG Carboxyhemoglobin 0.6 1.6 (0.0-1.6) % ABG Methemoglobin 0.7 0.6 % Ruddy Test A-line A-line O2 Delivery Device Ventilator Ventilator Oxygen Flow Rate L Sodium (140-148) mmol/L Potassium (3.6-5.2) mmol/L Chloride (100-108) mmol/L Carbon Dioxide (21-32) mmol/L Anion Gap (5.0-14.0) mmol/L BUN (7-18) mg/dL Creatinine (0.8-1.3) mg/dL Est Cr Clr Drug Dosing mL/min Estimated GFR (MDRD) (>60) Glucose (74-106) mg/dL Calcium (8.5-10.1) mg/dL 01/23/19 Range/Units 05:00 WBC (4.5-11.0) K/uL RBC (4.30-5.90) M/uL Hgb (12.0-15.0) g/dL Hct (40.0-54.0) % MCV (80-98) fL MCH (27-31) pg MCHC (32-36) % Plt Count (150-400) K/uL Puncture Site ABG pH (7.350-7.450) ABG pCO2 (35.0-42.0) mmHg ABG pO2 (75.0-100.0) mmHg ABG HCO3 (22.0-26.0) mmol/L ABG Total CO2 (23.0-27.0) mmol/L ABG O2 Saturation (95.0-98.0) % ABG O2 Content (15.0-23.0) %vol ABG Base Excess mm/L ABG Hemoglobin (13.5-18.0) g/dL ABG Oxyhemoglobin % ABG Carboxyhemoglobin (0.0-1.6) % ABG Methemoglobin % Ruddy Test O2 Delivery Device Oxygen Flow Rate L Sodium 138 L (140-148) mmol/L Potassium 3.8 (3.6-5.2) mmol/L Chloride 96 L (100-108) mmol/L Carbon Dioxide 35 H (21-32) mmol/L Anion Gap 10.8 (5.0-14.0) mmol/L BUN 35 H (7-18) mg/dL Creatinine 1.2 (0.8-1.3) mg/dL Est Cr Clr Drug Dosing 70.06 mL/min Estimated GFR (MDRD) > 60 (>60) Glucose 138 H (74-106) mg/dL Calcium 8.9 (8.5-10.1) mg/dL Petey Results Last 24 Hours: Microbiology 01/18/19 17:45 Aerobic Blood Culture - Preliminary Blood - Arm, Left NO GROWTH AFTER 4 DAYS Anaerobic Blood Culture - Preliminary NO GROWTH AFTER 4 DAYS 01/18/19 17:50 Aerobic Blood Culture - Preliminary Blood - Arm, Left NO GROWTH AFTER 4 DAYS Anaerobic Blood Culture - Preliminary NO GROWTH AFTER 4 DAYS Med Orders - Current: Current Medications Acetylcysteine (Mucomyst 20%) 200 mg INH BIDRT ON LICENSE OF [facility] Last Admin: 01/23/19 07:16 Dose: 200 mg Albuterol (Proventil Neb Soln) 2.5 mg NEB Q2H PRN PRN Reason: Shortness Of Breath/wheezing Albuterol/Ipratropium (Duoneb 3.0-0.5 Mg/3 Ml) 3 ml NEB QIDRT ON LICENSE OF [facility] Last Admin: 01/23/19 07:16 Dose: 3 ml Enoxaparin Sodium (Lovenox) 40 mg SUBCUT BEDTIME ON LICENSE OF [facility] Last Admin: 01/22/19 20:56 Dose: 40 mg Propofol (Diprivan 100 Ml) 100 mls @ 5.416 mls/hr IV TITRATE ON LICENSE OF [facility]; Protocol Last Admin: 01/23/19 09:04 Dose: 40 mcg/kg/min, 43.327 mls/hr Sodium Chloride (Normal Saline) 1,000 mls @ 0 mls/hr IV ASDIRECTED ON LICENSE OF [facility] Last Admin: 01/22/19 23:00 Dose: 25 mls/hr Piperacillin/Tazobactam/ (Dextrose 3.375 gm/ Premix) 50 mls @ 100 mls/hr IV Q6H ON LICENSE OF [facility] Last Admin: 01/23/19 08:24 Dose: 100 mls/hr Heparin Sodium (Porcine) 5,000 (units/ Sodium Chloride) 501 mls @ 5 mls/hr IV ASDIRECTED ON LICENSE OF [facility] Last Admin: 01/21/19 16:37 Dose: 5 mls/hr Lactated Ringer's (Ringers, Lactated) 1,000 mls @ 25 mls/hr IV ASDIRECTED ON LICENSE OF [facility] Last Admin: 01/22/19 19:00 Dose: 25 mls/hr Doxycycline Hyclate 100 mg/ (Sodium Chloride) 100 mls @ 100 mls/hr IV Q12H ON LICENSE OF [facility] Last Admin: 01/23/19 09:41 Dose: 100 mls/hr Methylprednisolone Sodium Succinate (Solu-Medrol) 40 mg IVPUSH Q6H ON LICENSE OF [facility] Last Admin: 01/23/19 08:24 Dose: 40 mg Morphine Sulfate (Morphine) 4 mg IVPUSH Q2H PRN PRN Reason: Pain Last Admin: 01/23/19 08:29 Dose: 4 mg Nystatin (Nystop) 0 gm TOP TID PRN PRN Reason: Rash Last Admin: 01/23/19 03:43 Dose: 1 applic Ondansetron HCl (Zofran) 4 mg IV Q4H PRN PRN Reason: Nausea/Vomiting Pantoprazole Sodium (Protonix Iv) 40 mg IVPUSH Q24H ON LICENSE OF [facility] Last Admin: 01/22/19 22:02 Dose: 40 mg Fluticasone/Salmeterol (Fluticasone-Salmeterol 232-14 Mcg Powder Inha) 1 puff INH BIDRT ON LICENSE OF [facility] Last Admin: 01/23/19 07:16 Dose: Not Given Sodium Chloride (Saline Flush) 10 ml FLUSH ASDIRECTED PRN PRN Reason: Keep Vein Open Discontinued Medications Albuterol (Proventil Neb Soln) 2.5 mg NEB Q4H PRN PRN Reason: Shortness Of Breath/wheezing Albuterol/Ipratropium (Duoneb 3.0-0.5 Mg/3 Ml) 3 ml NEB QID ON LICENSE OF [facility] Last Admin: 01/18/19 22:04 Dose: 3 ml Albuterol/Ipratropium (Duoneb 3.0-0.5 Mg/3 Ml) 3 ml INH ASDIRECTED PRN PRN Reason: Shortness of Breath Furosemide (Lasix) 40 mg IVPUSH ONETIME ONE Stop: 01/20/19 08:16 Last Admin: 01/20/19 09:48 Dose: 40 mg Furosemide (Lasix) 40 mg IVPUSH ONETIME ONE Stop: 01/20/19 21:01 Last Admin: 01/20/19 20:50 Dose: 40 mg Furosemide (Lasix) 40 mg IVPUSH ONETIME ONE Stop: 01/21/19 10:01 Last Admin: 01/21/19 09:30 Dose: 40 mg Furosemide (Lasix) 40 mg IVPUSH ONETIME ONE Stop: 01/22/19 10:01 Last Admin: 01/22/19 09:52 Dose: 40 mg Furosemide (Lasix) 40 mg IVPUSH ONETIME ONE Stop: 01/22/19 21:01 Last Admin: 01/22/19 20:56 Dose: 40 mg Heparin Sodium (Porcine) (Heparin Sodium) Confirm Administered Dose 5,000 units .ROUTE .STK-MED ONE Stop: 01/18/19 20:00 Last Admin: 01/18/19 21:54 Dose: 5,000 units Lactated Ringer's (Ringers, Lactated) 1,000 mls @ 999 mls/hr IV BOLUS ONE Stop: 01/18/19 19:37 Last Admin: 01/18/19 21:50 Dose: 999 mls/hr Levofloxacin/Dextrose 750 mg/ (Premix) 150 mls @ 100 mls/hr IV ONETIME ONE Stop: 01/18/19 20:06 Last Admin: 01/18/19 18:42 Dose: 100 mls/hr Norepinephrine Bitartrate 4 mg (/ Dextrose/Water) 250 mls @ 7.5 mls/hr IV TITRATE EVGENY; Protocol Last Titration: 01/19/19 16:27 Dose: 0 mcg/min, 0 mls/hr Lactated Ringer's (Ringers, Lactated) 1,000 mls @ 1,000 mls/hr IV ASDIRECTED EVGENY Stop: 01/18/19 21:01 Propofol (Diprivan 100 Ml) Confirm Administered Dose 100 mls @ as directed .ROUTE .STK-MED ONE Stop: 01/18/19 20:01 Last Admin: 01/18/19 22:00 Dose: Not Given Azithromycin 500 mg/ Sodium (Chloride) 250 mls @ 250 mls/hr IV Q24H EVGENY Last Admin: 01/22/19 22:02 Dose: 250 mls/hr Lactated Ringer's (Ringers, Lactated) 1,000 mls @ 125 mls/hr IV ASDIRECTED ON LICENSE OF [facility] Last Admin: 01/19/19 06:53 Dose: 125 mls/hr Norepinephrine Bitartrate 4 mg (/ Dextrose/Water) 250 mls @ 7.5 mls/hr IV TITRATE ON LICENSE OF [facility]; Protocol Piperacillin Sod/Tazobactam (Sod 3.375 gm/ Sodium Chloride) 50 mls @ 100 mls/ hr IV Q6H ON LICENSE OF [facility] Last Admin: 01/19/19 03:00 Dose: 100 mls/hr Vancomycin HCl 1 gm/ Sodium (Chloride) 250 mls @ 166.667 mls/hr IV Q12H ON LICENSE OF [facility] Last Admin: 01/19/19 06:59 Dose: Not Given Lactated Ringer's (Ringers, Lactated) 1,000 mls @ 999 mls/hr IV BOLUS ONE Stop: 01/18/19 22:51 Last Admin: 01/18/19 22:09 Dose: 999 mls/hr Sodium Chloride (Normal Saline) 500 mls @ 1 mls/hr IV .BOLUS ONE Stop: 02/08/19 17:53 Last Admin: 01/18/19 22:14 Dose: 1 mls/hr Vancomycin HCl 1 gm/ Sodium (Chloride) 250 mls @ 166.667 mls/hr IV Q12H ON LICENSE OF [facility] Last Admin: 01/19/19 00:26 Dose: 166.667 mls/hr Vancomycin HCl 1.5 gm/ Sodium (Chloride) 250 mls @ 166.667 mls/hr IV Q12H ON LICENSE OF [facility] Last Admin: 01/21/19 19:34 Dose: Not Given Lactated Ringer's (Ringers, Lactated) 1,000 mls @ 75 mls/hr IV ASDIRECTED ON LICENSE OF [facility] Last Admin: 01/20/19 07:20 Dose: 75 mls/hr Acetaminophen 1,000 mg/ Premix 100 mls @ 400 mls/hr IV NOW ONE Stop: 01/19/19 20:19 Last Admin: 01/19/19 20:33 Dose: 400 mls/hr Lidocaine HCl (Xylocaine 2% Viscous) Confirm Administered Dose 15 ml .ROUTE .STK -MED ONE Stop: 01/19/19 06:47 Lidocaine HCl (Xylocaine 4% Top Soln) Confirm Administered Dose 50 ml .ROUTE .STK-MED ONE Stop: 01/19/19 06:47 Last Admin: 01/19/19 07:45 Dose: 50 ml Lorazepam (Ativan) 1 mg IVPUSH ONETIME ONE Stop: 01/18/19 18:10 Last Admin: 01/18/19 18:17 Dose: 1 mg Nystatin (Nystop) 0 gm TOP QID ON LICENSE OF [facility] Last Admin: 01/19/19 05:33 Dose: 1 applic Nystatin (Nystop) Confirm Administered Dose 15 gm .ROUTE .STK-MED ONE Stop: 01/19/19 00:38 Last Admin: 01/19/19 02:45 Dose: Not Given Nystatin (Nystop) 0 gm TOP QID ON LICENSE OF [facility] Last Admin: 01/21/19 19:34 Dose: Not Given Pantoprazole Sodium (Protonix Iv) 40 mg IVPUSH Q24H ON LICENSE OF [facility] Last Admin: 01/18/19 22:01 Dose: 40 mg Propofol (Diprivan 20 Ml) Confirm Administered Dose 200 mg .ROUTE .STK-MED ONE Stop: 01/18/19 19:40 Fluticasone/Salmeterol (Fluticasone-Salmeterol 232-14 Mcg Powder Inha) 1 puff INH BID ON LICENSE OF [facility] Last Admin: 01/18/19 22:10 Dose: Not Given Sodium Chloride (Saline Flush) 10 ml FLUSH ASDIRECTED PRN PRN Reason: Keep Vein Open Last Admin: 01/18/19 17:26 Dose: 10 ml Sodium Chloride (Saline Flush) 10 ml FLUSH ASDIRECTED PRN PRN Reason: Keep Vein Open Last Admin: 01/18/19 17:27 Dose: 10 ml Succinylcholine Chloride (Quelicin) Confirm Administered Dose 200 mg .ROUTE .STK -MED ONE Stop: 01/18/19 19:40 Vancomycin HCl (Vancomycin) 0 gm IV .PHARMACY TO DOSE ON LICENSE OF [facility] Stop: 01/19/19 08:00 - Exam Quality Assessment: Supplemental Oxygen, Central Line/PICC, Urine Catheter, Restraints General: No Acute Distress, Sedated. No: Alert HEENT: Pupils Equal Lungs: Clear to Auscultation, Normal Respiratory Effort Cardiovascular: Regular Rate, Regular Rhythm, No Murmurs GI/Abdominal Exam: Soft, No Distention, Other (obese) Extremities: No Pedal Edema. No: Increased Warmth Skin: Warm, Dry Psy/Mental Status: No: Alert, Agitated - Problem List Review Problem List Initiated/Reviewed/Updated: Yes - My Orders Last 24 Hours: My Active Orders 01/23/19 10:00 Doxycycline [Vibramycin] 100 mg Sodium Chloride 0.9% [Normal Saline] 100 ml IV Q12H 01/23/19 10:15 Furosemide [Lasix] 40 mg IVPUSH BID 01/24/19 05:00 BASIC METABOLIC PANEL,BMP [CHEM] Timed BLOOD GAS ARTERIAL [BG] Timed CBC W/O DIFF,HEMOGRAM [HEME] Timed (1) - Plan Plan:: ASSESSMENT AND PLAN PNEUMONIA WITH SEPTIC SHOCK - clinically he has stabilized and is off vasopressors. No fevers but slower to improve then I would expect. -Follow-up cultures -IV fluids at to keep open -Twice daily furosemide today -Discontinue IV steroids -Start doxycycline -Continue Pip/Tazo (started 12/18) HYPOXIC AND HYPERCAPNIC RESPIRATORY FAILURE - secondary to pneumonia and underlying COPD. Slowly improving to stagnant. Chest x-ray has persistent in her social opacities. No fevers. FiO2 stable at 45% but PEEP still at 8. -Diuresis as above -Intubation and mechanical ventilation, PEEP up to 8 -Nebulized albuterol and DuoNeb's -Daily chest x-ray -Start weaning trials Saturday morning COPD - he may also have a component of obesity related hypoventilation -Management as above CHRONIC KIDNEY DISEASE STAGE III - kidney function stable -Sauceda catheter to closely monitor urine output -Follow-up labs for renal function in a.m. MORBID OBESITY WITH BMI GREATER THAN 50 MAINTENANCE ISSUES -DVT prophylaxis; Lovenox 40 mg subcutaneous daily -GI prophylaxis; Protonix 40 mg IV daily -Sauceda catheter; placed to closely monitor urine output any critical patient and needs to remain in place at this time -Nutrition; nothing by mouth DISPOSITION - anticipate discharge to [facility] after the hospital stay. Michael Roman M.D.
[2019-01-23] MEDS: Furosemide 40 MG/4 ML VIAL IVPUSH SCH ×2 (11:22→20:50)
[2019-01-23] MEDS: Sodium Chloride 0.9% 1,000 ML IV SCH (20:44)
[2019-01-23] MEDS: Enoxaparin 40 MG/0.4 ML Syringe SUBCUT SCH (20:50)
[2019-01-23] MEDS: Pantoprazole 40 MG Vial IVPUSH SCH (21:51)
[2019-01-24] MEDS: Lactated Ringers 1,000 ML IV SCH ×2 (00:22→19:58)
[2019-01-24] MEDS: Morphine 4 MG/ML Syringe IVPUSH PRN ×6 (01:43→21:54)
[2019-01-24] MEDS: Piperacillin/Tazobactam/Dext 3.375 GM in Premix Bag 1 BAG IV SCH ×4 (02:52→20:43)
[2019-01-24] MEDS: Nystatin Topical Powder 15 GM Bottle TOP PRN (03:30)
--- NOTE | 2019-01-24 04:46 | CRLCR ---
INDICATION: Respiratory failure TECHNIQUE: Chest 1 views COMPARISON: Chest x-ray 01/23/2019 FINDINGS: Cardiovascular and mediastinum: Cardiomegaly with endotracheal tube at the mid to distal trachea. Lungs and pleural spaces: More lordotic view of the chest with pulmonary cephalization and airspace consolidation within the left lung base. Low lung volumes. Bones and soft tissues: No significant findings. IMPRESSION: Low lung volumes with pulmonary cephalization and left basilar airspace consolidation, increased compared to the study of 1 day prior. Dictated by Gurwinder Cyr MD @ Jan 24 2019 4:44AM Signed by Dr. Gurwinder Cyr @ Jan 24 2019 4:45AM
[2019-01-24] MEDS: Albuterol/Ipratropium 3.0-0.5 MG/3 ML Neb Soln NEB SCH ×4 (07:22→20:42)
[2019-01-24] MEDS: Fluticasone-Salmeterol 232-14 MCG Powder Inhalent INH SCH ×2 (07:23→20:37)
--- NOTE | 2019-01-24 08:59 | PCM.PN ---
- General Info Date of Service: 01/24/19 Subjective Update: There were no acute events overnight. FiO2 was down to 35% this morning but with the decreasing the PEEP went back up to 40%. He remains lightly sedated but is able to follow commands and assist with turning and to some extent with cares. He has not had any fevers. Excellent response to diuresis yesterday. Kidney function has remained stable. Chest x-ray shows slight increase in the effusion on the left side this morning. Functional Status: Reports: Other (intubated and sedated) - Review of Systems General: Denies: Fever - Patient Data Vitals - Most Recent: Last Vital Signs Temp 36.6 C 01/24/19 07:00 Pulse 76 01/24/19 07:23 Resp 20 01/24/19 07:00 BP 116/58 L 01/24/19 07:00 Pulse Ox 92 L 01/24/19 07:23 Weight - Most Recent: 166.6 kg I&O - Last 24 Hours: Intake & Output 01/23/19 01/24/19 01/24/19 22:59 06:59 14:59 Intake Total 1159 1310 Output Total 1800 2450 Balance -641 -1140 Lab Results Last 24 Hours: Laboratory Results - last 24 hr 01/24/19 01/24/19 01/24/19 Range/Units 05:43 05:43 05:43 WBC 12.5 H (4.5-11.0) K/uL RBC 4.57 (4.30-5.90) M/uL Hgb 11.7 L (12.0-15.0) g/dL Hct 37.4 L (40.0-54.0) % MCV 82 (80-98) fL MCH 26 L (27-31) pg MCHC 31 L (32-36) % Plt Count 317 (150-400) K/uL Puncture Site Line ABG pH 7.497 H (7.350-7.450) ABG pCO2 47.4 H (35.0-42.0) mmHg ABG pO2 71.1 L (75.0-100.0) mmHg ABG HCO3 36.3 H (22.0-26.0) mmol/L ABG Total CO2 32.3 H (23.0-27.0) mmol/L ABG O2 Saturation 94.4 L (95.0-98.0) % ABG O2 Content 15.7 (15.0-23.0) %vol ABG Base Excess 11.6 mm/L ABG Hemoglobin 12.0 L (13.5-18.0) g/dL ABG Oxyhemoglobin 92.5 % ABG Carboxyhemoglobin 1.2 (0.0-1.6) % ABG Methemoglobin 0.8 % Ruddy Test A-line O2 Delivery Device Ventilator Oxygen Flow Rate L Sodium 138 L (140-148) mmol/L Potassium 3.1 L (3.6-5.2) mmol/L Chloride 97 L (100-108) mmol/L Carbon Dioxide 34 H (21-32) mmol/L Anion Gap 10.1 (5.0-14.0) mmol/L BUN 39 H (7-18) mg/dL Creatinine 1.2 (0.8-1.3) mg/dL Est Cr Clr Drug Dosing 70.06 mL/min Estimated GFR (MDRD) > 60 (>60) Glucose 112 H (74-106) mg/dL Calcium 9.1 (8.5-10.1) mg/dL Triglycerides 205 H (15-150) mg/dL Petey Results Last 24 Hours: Microbiology 01/18/19 17:50 Aerobic Blood Culture - Final Blood - Arm, Left NO GROWTH AFTER 5 DAYS Anaerobic Blood Culture - Final NO GROWTH AFTER 5 DAYS 01/18/19 17:45 Aerobic Blood Culture - Final Blood - Arm, Left NO GROWTH AFTER 5 DAYS Anaerobic Blood Culture - Final NO GROWTH AFTER 5 DAYS Med Orders - Current: Current Medications Albuterol (Proventil Neb Soln) 2.5 mg NEB Q2H PRN PRN Reason: Shortness Of Breath/wheezing Albuterol/Ipratropium (Duoneb 3.0-0.5 Mg/3 Ml) 3 ml NEB QIDRT [facility] Last Admin: 01/24/19 07:22 Dose: 3 ml Enoxaparin Sodium (Lovenox) 40 mg SUBCUT BEDTIME [facility]GEN[facility] Last Admin: 01/23/19 20:50 Dose: 40 mg Furosemide (Lasix) 40 mg IVPUSH BID [facility] Stop: 01/24/19 21:01 Propofol (Diprivan 100 Ml) 100 mls @ 5.416 mls/hr IV TITRATE [facility]; Protocol Last Admin: 01/24/19 08:57 Dose: 25 mcg/kg/min, 27.08 mls/hr Sodium Chloride (Normal Saline) 1,000 mls @ 0 mls/hr IV ASDIRECTED [facility] Last Admin: 01/23/19 20:44 Dose: 25 mls/hr Piperacillin/Tazobactam/ (Dextrose 3.375 gm/ Premix) 50 mls @ 100 mls/hr IV Q6H [facility] Last Admin: 01/24/19 08:28 Dose: 100 mls/hr Heparin Sodium (Porcine) 5,000 (units/ Sodium Chloride) 501 mls @ 5 mls/hr IV ASDIRECTED [facility] Last Admin: 01/21/19 16:37 Dose: 5 mls/hr Lactated Ringer's (Ringers, Lactated) 1,000 mls @ 25 mls/hr IV ASDIRECTED [facility] Last Admin: 01/24/19 00:22 Dose: 25 mls/hr Doxycycline Hyclate 100 mg/ (Sodium Chloride) 100 mls @ 100 mls/hr IV Q12H [facility] Last Admin: 01/23/19 21:51 Dose: 100 mls/hr Potassium Chloride 40 meq/ (Premix) 100 mls @ 25 mls/hr IV ONETIME ONE Stop: 01/24/19 12:55 Morphine Sulfate (Morphine) 4 mg IVPUSH Q2H PRN PRN Reason: Pain Last Admin: 01/24/19 01:43 Dose: 4 mg Nystatin (Nystop) 0 gm TOP TID PRN PRN Reason: Rash Last Admin: 01/24/19 03:30 Dose: 1 applic Ondansetron HCl (Zofran) 4 mg IV Q4H PRN PRN Reason: Nausea/Vomiting Pantoprazole Sodium (Protonix Iv) 40 mg IVPUSH Q24H [facility] Last Admin: 01/23/19 21:51 Dose: 40 mg Fluticasone/Salmeterol (Fluticasone-Salmeterol 232-14 Mcg Powder Inha) 1 puff INH BIDRT [facility] Last Admin: 01/24/19 07:23 Dose: Not Given Sodium Chloride (Saline Flush) 10 ml FLUSH ASDIRECTED PRN PRN Reason: Keep Vein Open Discontinued Medications Acetylcysteine (Mucomyst 20%) 200 mg INH BIDRT [facility] Last Admin: 01/23/19 07:16 Dose: 200 mg Albuterol (Proventil Neb Soln) 2.5 mg NEB Q4H PRN PRN Reason: Shortness Of Breath/wheezing Albuterol/Ipratropium (Duoneb 3.0-0.5 Mg/3 Ml) 3 ml NEB QID [facility] Last Admin: 01/18/19 22:04 Dose: 3 ml Albuterol/Ipratropium (Duoneb 3.0-0.5 Mg/3 Ml) 3 ml INH ASDIRECTED PRN PRN Reason: Shortness of Breath Furosemide (Lasix) 40 mg IVPUSH ONETIME ONE Stop: 01/20/19 08:16 Last Admin: 01/20/19 09:48 Dose: 40 mg Furosemide (Lasix) 40 mg IVPUSH ONETIME ONE Stop: 01/20/19 21:01 Last Admin: 01/20/19 20:50 Dose: 40 mg Furosemide (Lasix) 40 mg IVPUSH ONETIME ONE Stop: 01/21/19 10:01 Last Admin: 01/21/19 09:30 Dose: 40 mg Furosemide (Lasix) 40 mg IVPUSH ONETIME ONE Stop: 01/22/19 10:01 Last Admin: 01/22/19 09:52 Dose: 40 mg Furosemide (Lasix) 40 mg IVPUSH ONETIME ONE Stop: 01/22/19 21:01 Last Admin: 01/22/19 20:56 Dose: 40 mg Furosemide (Lasix) 40 mg IVPUSH BID [facility] Stop: 01/23/19 21:01 Last Admin: 01/23/19 20:50 Dose: 40 mg Heparin Sodium (Porcine) (Heparin Sodium) Confirm Administered Dose 5,000 units .ROUTE .STK-MED ONE Stop: 01/18/19 20:00 Last Admin: 01/18/19 21:54 Dose: 5,000 units Lactated Ringer's (Ringers, Lactated) 1,000 mls @ 999 mls/hr IV BOLUS ONE Stop: 01/18/19 19:37 Last Admin: 01/18/19 21:50 Dose: 999 mls/hr Levofloxacin/Dextrose 750 mg/ (Premix) 150 mls @ 100 mls/hr IV ONETIME ONE Stop: 01/18/19 20:06 Last Admin: 01/18/19 18:42 Dose: 100 mls/hr Norepinephrine Bitartrate 4 mg (/ Dextrose/Water) 250 mls @ 7.5 mls/hr IV TITRATE [facility]GEN[facility]; Protocol Last Titration: 01/19/19 16:27 Dose: 0 mcg/min, 0 mls/hr Lactated Ringer's (Ringers, Lactated) 1,000 mls @ 1,000 mls/hr IV ASDIRECTED [facility] Stop: 01/18/19 21:01 Propofol (Diprivan 100 Ml) Confirm Administered Dose 100 mls @ as directed .ROUTE .STK-MED ONE Stop: 01/18/19 20:01 Last Admin: 01/18/19 22:00 Dose: Not Given Azithromycin 500 mg/ Sodium (Chloride) 250 mls @ 250 mls/hr IV Q24H [facility] Last Admin: 01/22/19 22:02 Dose: 250 mls/hr Lactated Ringer's (Ringers, Lactated) 1,000 mls @ 125 mls/hr IV ASDIRECTED [facility] Last Admin: 01/19/19 06:53 Dose: 125 mls/hr Norepinephrine Bitartrate 4 mg (/ Dextrose/Water) 250 mls @ 7.5 mls/hr IV TITRATE [facility]; Protocol Piperacillin Sod/Tazobactam (Sod 3.375 gm/ Sodium Chloride) 50 mls @ 100 mls/ hr IV Q6H [facility] Last Admin: 01/19/19 03:00 Dose: 100 mls/hr Vancomycin HCl 1 gm/ Sodium (Chloride) 250 mls @ 166.667 mls/hr IV Q12H [facility] Last Admin: 01/19/19 06:59 Dose: Not Given Lactated Ringer's (Ringers, Lactated) 1,000 mls @ 999 mls/hr IV BOLUS ONE Stop: 01/18/19 22:51 Last Admin: 01/18/19 22:09 Dose: 999 mls/hr Sodium Chloride (Normal Saline) 500 mls @ 1 mls/hr IV .BOLUS ONE Stop: 02/08/19 17:53 Last Admin: 01/18/19 22:14 Dose: 1 mls/hr Vancomycin HCl 1 gm/ Sodium (Chloride) 250 mls @ 166.667 mls/hr IV Q12H [facility] Last Admin: 01/19/19 00:26 Dose: 166.667 mls/hr Vancomycin HCl 1.5 gm/ Sodium (Chloride) 250 mls @ 166.667 mls/hr IV Q12H [facility] Last Admin: 01/21/19 19:34 Dose: Not Given Lactated Ringer's (Ringers, Lactated) 1,000 mls @ 75 mls/hr IV ASDIRECTED [facility] Last Admin: 01/20/19 07:20 Dose: 75 mls/hr Acetaminophen 1,000 mg/ Premix 100 mls @ 400 mls/hr IV NOW ONE Stop: 01/19/19 20:19 Last Admin: 01/19/19 20:33 Dose: 400 mls/hr Lidocaine HCl (Xylocaine 2% Viscous) Confirm Administered Dose 15 ml .ROUTE .STK -MED ONE Stop: 01/19/19 06:47 Lidocaine HCl (Xylocaine 4% Top Soln) Confirm Administered Dose 50 ml .ROUTE .STK-MED ONE Stop: 01/19/19 06:47 Last Admin: 01/19/19 07:45 Dose: 50 ml Lorazepam (Ativan) 1 mg IVPUSH ONETIME ONE Stop: 01/18/19 18:10 Last Admin: 01/18/19 18:17 Dose: 1 mg Methylprednisolone Sodium Succinate (Solu-Medrol) 40 mg IVPUSH Q6H [facility] Last Admin: 01/23/19 15:14 Dose: 40 mg Nystatin (Nystop) 0 gm TOP QID [facility] Last Admin: 01/19/19 05:33 Dose: 1 applic Nystatin (Nystop) Confirm Administered Dose 15 gm .ROUTE .STK-MED ONE Stop: 01/19/19 00:38 Last Admin: 01/19/19 02:45 Dose: Not Given Nystatin (Nystop) 0 gm TOP QID [facility] Last Admin: 01/21/19 19:34 Dose: Not Given Pantoprazole Sodium (Protonix Iv) 40 mg IVPUSH Q24H [facility] Last Admin: 01/18/19 22:01 Dose: 40 mg Propofol (Diprivan 20 Ml) Confirm Administered Dose 200 mg .ROUTE .STK-MED ONE Stop: 01/18/19 19:40 Fluticasone/Salmeterol (Fluticasone-Salmeterol 232-14 Mcg Powder Inha) 1 puff INH BID [facility] Last Admin: 01/18/19 22:10 Dose: Not Given Sodium Chloride (Saline Flush) 10 ml FLUSH ASDIRECTED PRN PRN Reason: Keep Vein Open Last Admin: 01/18/19 17:26 Dose: 10 ml Sodium Chloride (Saline Flush) 10 ml FLUSH ASDIRECTED PRN PRN Reason: Keep Vein Open Last Admin: 01/18/19 17:27 Dose: 10 ml Succinylcholine Chloride (Quelicin) Confirm Administered Dose 200 mg .ROUTE .STK -MED ONE Stop: 01/18/19 19:40 Vancomycin HCl (Vancomycin) 0 gm IV .PHARMACY TO DOSE [facility] Stop: 01/19/19 08:00 - Exam Quality Assessment: Supplemental Oxygen, Central Line/PICC, Urine Catheter, Restraints General: Alert, No Acute Distress, Sedated HEENT: Pupils Equal Lungs: Clear to Auscultation, Normal Respiratory Effort, Decreased Breath Sounds (left lung base) Cardiovascular: Regular Rate, Regular Rhythm, No Murmurs GI/Abdominal Exam: Normal Bowel Sounds, Soft, No Distention Extremities: No Pedal Edema. No: Increased Warmth Peripheral Pulses: 2+: Dorsalis Pedis (L), Dorsalis Pedis (R) Skin: Warm, Dry Psy/Mental Status: Alert. No: Agitated - Problem List Review Problem List Initiated/Reviewed/Updated: Yes - My Orders Last 24 Hours: My Active Orders 01/23/19 10:00 Doxycycline [Vibramycin] 100 mg Sodium Chloride 0.9% [Normal Saline] 100 ml IV Q12H 01/24/19 08:56 Potassium Chloride Riders [KCL 40 MEQ in Water 100 ML] 40 meq Premix Bag 1 bag IV ONETIME 01/24/19 09:00 Furosemide [Lasix] 40 mg IVPUSH BID 01/24/19 15:00 POTASSIUM,K [CHEM] Timed 01/25/19 05:00 BASIC METABOLIC PANEL,BMP [CHEM] Timed BLOOD GAS ARTERIAL [BG] Timed CBC W/O DIFF,HEMOGRAM [HEME] Timed (1) - Plan Plan:: ASSESSMENT AND PLAN PNEUMONIA WITH SEPTIC SHOCK - clinically he has stabilized and is off vasopressors. No fevers but slower to improve then I would expect. Effusion slightly larger on the chest x-ray today but otherwise respiratory status seems to be improving. Seems to be responding well to ongoing diuresis though there is no edema on examination. -Follow-up cultures -IV fluids at to keep open -Twice daily furosemide today -Discontinue IV steroids -Continue doxycycline -Continue Pip/Tazo (started 12/18) HYPOXIC AND HYPERCAPNIC RESPIRATORY FAILURE - secondary to pneumonia and underlying COPD. Slowly improving to stagnant. Chest x-ray has persistent interstitial opacities. No fevers. FiO2 down to 40% and PEEP down to 7 -Diuresis as above -Intubation and mechanical ventilation, PEEP down to 7 -Nebulized albuterol and DuoNeb's -Daily chest x-ray -Daily weaning trials COPD - he may also have a component of obesity related hypoventilation -Management as above CHRONIC KIDNEY DISEASE STAGE III - kidney function stable -Sauceda catheter to closely monitor urine output -Follow-up labs for renal function in a.m. MORBID OBESITY WITH BMI GREATER THAN 50 MAINTENANCE ISSUES -DVT prophylaxis; Lovenox 40 mg subcutaneous daily -GI prophylaxis; Protonix 40 mg IV daily -Sauceda catheter; placed to closely monitor urine output any critical patient and needs to remain in place at this time -Nutrition; nothing by mouth DISPOSITION - anticipate discharge to shelter after the hospital stay. Michael Roman M.D.
[2019-01-24] MEDS: Furosemide 40 MG/4 ML VIAL IVPUSH SCH ×2 (09:22→20:43)
[2019-01-24] MEDS ORDERED: Potassium Chloride Riders 40 MEQ in Premix Bag 1 BAG IV ONE ×2 (09:30→15:59)
[2019-01-24] MEDS: Doxycycline 100 MG in Sodium Chloride 0.9% 100 ML IV SCH ×2 (11:36→21:46)
[2019-01-24] MEDS: Heparin Sodium 5,000 UNITS in Sodium Chloride 0.9% 500 ML IV SCH (15:30)
[2019-01-24] MEDS: Sodium Chloride 0.9% 1,000 ML IV SCH (19:58)
[2019-01-24] MEDS: Enoxaparin 40 MG/0.4 ML Syringe SUBCUT SCH (20:42)
[2019-01-24] MEDS: Pantoprazole 40 MG Vial IVPUSH SCH (21:46)
[2019-01-25] MEDS: Morphine 4 MG/ML Syringe IVPUSH PRN ×6 (00:11→22:46)
[2019-01-25] MEDS: Piperacillin/Tazobactam/Dext 3.375 GM in Premix Bag 1 BAG IV SCH ×4 (02:36→20:14)
[2019-01-25] MEDS: Nystatin Topical Powder 15 GM Bottle TOP PRN (03:43)
--- NOTE | 2019-01-25 04:18 | CRLCR ---
INDICATION: Tube repositioning. TECHNIQUE: Chest 1 views COMPARISON: Chest x-ray 01/24/2019 FINDINGS: Cardiovascular and mediastinum: Mild cardiomegaly with endotracheal tube at the midtrachea level. Lungs and pleural spaces: Pulmonary cephalization with mild retrocardiac atelectasis. Mild pulmonary cephalization. Bones and soft tissues: No significant findings. IMPRESSION: Cardiomegaly with retrocardiac atelectasis. Endotracheal tube at the midtrachea level. Dictated by Gurwinder Cyr MD @ Jan 25 2019 4:15AM Signed by Dr. Gurwinder Cyr @ Jan 25 2019 4:17AM
[2019-01-25] MEDS ORDERED: Sodium Chloride 0.9% 500 ML IV SCH ×2 (05:00→06:15)
[2019-01-25] MEDS: Albuterol/Ipratropium 3.0-0.5 MG/3 ML Neb Soln NEB SCH ×4 (07:37→20:14)
[2019-01-25] MEDS: Fluticasone-Salmeterol 232-14 MCG Powder Inhalent INH SCH ×2 (07:38→20:09)
[2019-01-25] MEDS: Doxycycline 100 MG in Sodium Chloride 0.9% 100 ML IV SCH ×2 (09:03→21:40)
--- NOTE | 2019-01-25 09:22 | PCM.PN ---
- General Info Date of Service: 01/25/19 Subjective Update: There were no acute events overnight. Patient did have mild hypotension that responded to a fluid bolus. Blood pressures are now in the normal range. Creatinine is slightly higher today and I think we have reached the end of our diuresis. He remained stable on 40% FiO2. PEEP is now down to 5. White blood cell count is slightly higher today but he has not had any fevers. He does have slight wheezing noted on exam today. He is passing gas but has not had a bowel movement. Chest x-ray still shows some cephalization. Functional Status: Reports: Other (intubated and lightly sedated) - Review of Systems General: Denies: Fever - Patient Data Vitals - Most Recent: Last Vital Signs Temp 36.4 C 01/25/19 07:00 Pulse 80 01/25/19 08:00 Resp 12 01/25/19 08:00 BP 109/61 01/25/19 08:00 Pulse Ox 94 L 01/25/19 08:00 Weight - Most Recent: 164.8 kg I&O - Last 24 Hours: Intake & Output 01/24/19 01/25/19 01/25/19 22:59 06:59 14:59 Intake Total 1206 1628 Output Total 425 250 Balance 781 1378 Lab Results Last 24 Hours: Laboratory Results - last 24 hr 01/24/19 01/25/19 01/25/19 Range/Units 14:50 04:10 04:10 WBC 14.0 H (4.5-11.0) K/uL RBC 4.70 (4.30-5.90) M/uL Hgb 12.0 (12.0-15.0) g/dL Hct 38.9 L (40.0-54.0) % MCV 83 (80-98) fL MCH 26 L (27-31) pg MCHC 31 L (32-36) % Plt Count 298 (150-400) K/uL Puncture Site Line ABG pH 7.458 H (7.350-7.450) ABG pCO2 50.1 H (35.0-42.0) mmHg ABG pO2 93.2 (75.0-100.0) mmHg ABG HCO3 35.0 H (22.0-26.0) mmol/L ABG Total CO2 31.2 H (23.0-27.0) mmol/L ABG O2 Saturation 97.2 (95.0-98.0) % ABG O2 Content 16.4 (15.0-23.0) %vol ABG Base Excess 9.9 mm/L ABG Hemoglobin 12.2 L (13.5-18.0) g/dL ABG Oxyhemoglobin 95.2 % ABG Carboxyhemoglobin 1.3 (0.0-1.6) % ABG Methemoglobin 0.8 % Rdudy Test A-line O2 Delivery Device Ventilator Oxygen Flow Rate L Sodium (140-148) mmol/L Potassium 3.1 L (3.6-5.2) mmol/L Chloride (100-108) mmol/L Carbon Dioxide (21-32) mmol/L Anion Gap (5.0-14.0) mmol/L BUN (7-18) mg/dL Creatinine (0.8-1.3) mg/dL Est Cr Clr Drug Dosing mL/min Estimated GFR (MDRD) (>60) Glucose (74-106) mg/dL Calcium (8.5-10.1) mg/dL 01/25/19 Range/Units 04:10 WBC (4.5-11.0) K/uL RBC (4.30-5.90) M/uL Hgb (12.0-15.0) g/dL Hct (40.0-54.0) % MCV (80-98) fL MCH (27-31) pg MCHC (32-36) % Plt Count (150-400) K/uL Puncture Site ABG pH (7.350-7.450) ABG pCO2 (35.0-42.0) mmHg ABG pO2 (75.0-100.0) mmHg ABG HCO3 (22.0-26.0) mmol/L ABG Total CO2 (23.0-27.0) mmol/L ABG O2 Saturation (95.0-98.0) % ABG O2 Content (15.0-23.0) %vol ABG Base Excess mm/L ABG Hemoglobin (13.5-18.0) g/dL ABG Oxyhemoglobin % ABG Carboxyhemoglobin (0.0-1.6) % ABG Methemoglobin % Ruddy Test O2 Delivery Device Oxygen Flow Rate L Sodium 139 L (140-148) mmol/L Potassium 3.2 L (3.6-5.2) mmol/L Chloride 98 L (100-108) mmol/L Carbon Dioxide 33 H (21-32) mmol/L Anion Gap 11.2 (5.0-14.0) mmol/L BUN 45 H (7-18) mg/dL Creatinine 1.5 H (0.8-1.3) mg/dL Est Cr Clr Drug Dosing 56.04 mL/min Estimated GFR (MDRD) 47 L (>60) Glucose 115 H (74-106) mg/dL Calcium 8.8 (8.5-10.1) mg/dL Med Orders - Current: Current Medications Albuterol (Proventil Neb Soln) 2.5 mg NEB Q2H PRN PRN Reason: Shortness Of Breath/wheezing Albuterol/Ipratropium (Duoneb 3.0-0.5 Mg/3 Ml) 3 ml NEB QIDRT [facility] Last Admin: 01/25/19 07:37 Dose: 3 ml Enoxaparin Sodium (Lovenox) 40 mg SUBCUT BEDTIME [facility] Last Admin: 01/24/19 20:42 Dose: 40 mg Propofol (Diprivan 100 Ml) 100 mls @ 5.416 mls/hr IV TITRATE [facility]; Protocol Last Admin: 01/25/19 06:15 Dose: 25 mcg/kg/min, 27.08 mls/hr Sodium Chloride (Normal Saline) 1,000 mls @ 0 mls/hr IV ASDIRECTED [facility] Last Admin: 01/24/19 19:58 Dose: 25 mls/hr Piperacillin/Tazobactam/ (Dextrose 3.375 gm/ Premix) 50 mls @ 100 mls/hr IV Q6H [facility] Last Admin: 01/25/19 08:16 Dose: 100 mls/hr Heparin Sodium (Porcine) 5,000 (units/ Sodium Chloride) 501 mls @ 5 mls/hr IV ASDIRECTED [facility] Last Admin: 01/24/19 15:30 Dose: 5 mls/hr Lactated Ringer's (Ringers, Lactated) 1,000 mls @ 25 mls/hr IV ASDIRECTED [facility] Last Admin: 01/24/19 19:58 Dose: 25 mls/hr Doxycycline Hyclate 100 mg/ (Sodium Chloride) 100 mls @ 100 mls/hr IV Q12H [facility] Last Admin: 01/25/19 09:03 Dose: 100 mls/hr Sodium Chloride (Normal Saline) 500 mls @ 500 mls/hr IV ASDIRECTED [facility] Last Admin: 01/25/19 05:00 Dose: 500 mls/hr Sodium Chloride (Normal Saline) 500 mls @ 500 mls/hr IV STAT [facility] Last Admin: 01/25/19 06:05 Dose: 500 mls/hr Potassium Chloride 40 meq/ (Premix) 100 mls @ 25 mls/hr IV ONETIME ONE Stop: 01/25/19 13:29 Last Admin: 01/25/19 09:04 Dose: 25 mls/hr Morphine Sulfate (Morphine) 4 mg IVPUSH Q2H PRN PRN Reason: Pain Last Admin: 01/25/19 02:45 Dose: 4 mg Nystatin (Nystop) 0 gm TOP TID PRN PRN Reason: Rash Last Admin: 01/25/19 03:43 Dose: 1 applic Ondansetron HCl (Zofran) 4 mg IV Q4H PRN PRN Reason: Nausea/Vomiting Pantoprazole Sodium (Protonix Iv) 40 mg IVPUSH Q24H [facility] Last Admin: 01/24/19 21:46 Dose: 40 mg Fluticasone/Salmeterol (Fluticasone-Salmeterol 232-14 Mcg Powder Inha) 1 puff INH BIDRT [facility] Last Admin: 01/25/19 07:38 Dose: Not Given Sodium Chloride (Saline Flush) 10 ml FLUSH ASDIRECTED PRN PRN Reason: Keep Vein Open Discontinued Medications Acetylcysteine (Mucomyst 20%) 200 mg INH BIDRT [facility] Last Admin: 01/23/19 07:16 Dose: 200 mg Albuterol (Proventil Neb Soln) 2.5 mg NEB Q4H PRN PRN Reason: Shortness Of Breath/wheezing Albuterol/Ipratropium (Duoneb 3.0-0.5 Mg/3 Ml) 3 ml NEB QID [facility] Last Admin: 01/18/19 22:04 Dose: 3 ml Albuterol/Ipratropium (Duoneb 3.0-0.5 Mg/3 Ml) 3 ml INH ASDIRECTED PRN PRN Reason: Shortness of Breath Furosemide (Lasix) 40 mg IVPUSH ONETIME ONE Stop: 01/20/19 08:16 Last Admin: 01/20/19 09:48 Dose: 40 mg Furosemide (Lasix) 40 mg IVPUSH ONETIME ONE Stop: 01/20/19 21:01 Last Admin: 01/20/19 20:50 Dose: 40 mg Furosemide (Lasix) 40 mg IVPUSH ONETIME ONE Stop: 01/21/19 10:01 Last Admin: 01/21/19 09:30 Dose: 40 mg Furosemide (Lasix) 40 mg IVPUSH ONETIME ONE Stop: 01/22/19 10:01 Last Admin: 01/22/19 09:52 Dose: 40 mg Furosemide (Lasix) 40 mg IVPUSH ONETIME ONE Stop: 01/22/19 21:01 Last Admin: 01/22/19 20:56 Dose: 40 mg Furosemide (Lasix) 40 mg IVPUSH BID [facility] Stop: 01/23/19 21:01 Last Admin: 01/23/19 20:50 Dose: 40 mg Furosemide (Lasix) 40 mg IVPUSH BID EVGENY Stop: 01/24/19 21:01 Last Admin: 01/24/19 20:43 Dose: 40 mg Heparin Sodium (Porcine) (Heparin Sodium) Confirm Administered Dose 5,000 units .ROUTE .STK-MED ONE Stop: 01/18/19 20:00 Last Admin: 01/18/19 21:54 Dose: 5,000 units Lactated Ringer's (Ringers, Lactated) 1,000 mls @ 999 mls/hr IV BOLUS ONE Stop: 01/18/19 19:37 Last Admin: 01/18/19 21:50 Dose: 999 mls/hr Levofloxacin/Dextrose 750 mg/ (Premix) 150 mls @ 100 mls/hr IV ONETIME ONE Stop: 01/18/19 20:06 Last Admin: 01/18/19 18:42 Dose: 100 mls/hr Norepinephrine Bitartrate 4 mg (/ Dextrose/Water) 250 mls @ 7.5 mls/hr IV TITRATE [facility]; Protocol Last Titration: 01/19/19 16:27 Dose: 0 mcg/min, 0 mls/hr Lactated Ringer's (Ringers, Lactated) 1,000 mls @ 1,000 mls/hr IV ASDIRECTED [facility] Stop: 01/18/19 21:01 Propofol (Diprivan 100 Ml) Confirm Administered Dose 100 mls @ as directed .ROUTE .STK-MED ONE Stop: 01/18/19 20:01 Last Admin: 01/18/19 22:00 Dose: Not Given Azithromycin 500 mg/ Sodium (Chloride) 250 mls @ 250 mls/hr IV Q24H [facility] Last Admin: 01/22/19 22:02 Dose: 250 mls/hr Lactated Ringer's (Ringers, Lactated) 1,000 mls @ 125 mls/hr IV ASDIRECTED [facility] Last Admin: 01/19/19 06:53 Dose: 125 mls/hr Norepinephrine Bitartrate 4 mg (/ Dextrose/Water) 250 mls @ 7.5 mls/hr IV TITRATE [facility]; Protocol Piperacillin Sod/Tazobactam (Sod 3.375 gm/ Sodium Chloride) 50 mls @ 100 mls/ hr IV Q6H [facility] Last Admin: 01/19/19 03:00 Dose: 100 mls/hr Vancomycin HCl 1 gm/ Sodium (Chloride) 250 mls @ 166.667 mls/hr IV Q12H [facility] Last Admin: 01/19/19 06:59 Dose: Not Given Lactated Ringer's (Ringers, Lactated) 1,000 mls @ 999 mls/hr IV BOLUS ONE Stop: 01/18/19 22:51 Last Admin: 01/18/19 22:09 Dose: 999 mls/hr Sodium Chloride (Normal Saline) 500 mls @ 1 mls/hr IV .BOLUS ONE Stop: 02/08/19 17:53 Last Admin: 01/18/19 22:14 Dose: 1 mls/hr Vancomycin HCl 1 gm/ Sodium (Chloride) 250 mls @ 166.667 mls/hr IV Q12H [facility] Last Admin: 01/19/19 00:26 Dose: 166.667 mls/hr Vancomycin HCl 1.5 gm/ Sodium (Chloride) 250 mls @ 166.667 mls/hr IV Q12H [facility] Last Admin: 01/21/19 19:34 Dose: Not Given Lactated Ringer's (Ringers, Lactated) 1,000 mls @ 75 mls/hr IV ASDIRECTED [facility] Last Admin: 01/20/19 07:20 Dose: 75 mls/hr Acetaminophen 1,000 mg/ Premix 100 mls @ 400 mls/hr IV NOW ONE Stop: 01/19/19 20:19 Last Admin: 01/19/19 20:33 Dose: 400 mls/hr Potassium Chloride 40 meq/ (Premix) 100 mls @ 25 mls/hr IV ONETIME ONE Stop: 01/24/19 13:29 Last Admin: 01/24/19 09:24 Dose: 25 mls/hr Potassium Chloride 40 meq/ (Premix) 100 mls @ 25 mls/hr IV ONETIME ONE Stop: 01/24/19 19:58 Last Admin: 01/24/19 16:14 Dose: 25 mls/hr Lidocaine HCl (Xylocaine 2% Viscous) Confirm Administered Dose 15 ml .ROUTE .STK -MED ONE Stop: 01/19/19 06:47 Lidocaine HCl (Xylocaine 4% Top Soln) Confirm Administered Dose 50 ml .ROUTE .STK-MED ONE Stop: 01/19/19 06:47 Last Admin: 01/19/19 07:45 Dose: 50 ml Lorazepam (Ativan) 1 mg IVPUSH ONETIME ONE Stop: 01/18/19 18:10 Last Admin: 01/18/19 18:17 Dose: 1 mg Methylprednisolone Sodium Succinate (Solu-Medrol) 40 mg IVPUSH Q6H [facility] Last Admin: 01/23/19 15:14 Dose: 40 mg Nystatin (Nystop) 0 gm TOP QID [facility] Last Admin: 01/19/19 05:33 Dose: 1 applic Nystatin (Nystop) Confirm Administered Dose 15 gm .ROUTE .STK-MED ONE Stop: 01/19/19 00:38 Last Admin: 01/19/19 02:45 Dose: Not Given Nystatin (Nystop) 0 gm TOP QID [facility] Last Admin: 01/21/19 19:34 Dose: Not Given Pantoprazole Sodium (Protonix Iv) 40 mg IVPUSH Q24H [facility] Last Admin: 01/18/19 22:01 Dose: 40 mg Propofol (Diprivan 20 Ml) Confirm Administered Dose 200 mg .ROUTE .STK-MED ONE Stop: 01/18/19 19:40 Fluticasone/Salmeterol (Fluticasone-Salmeterol 232-14 Mcg Powder Inha) 1 puff INH BID [facility] Last Admin: 01/18/19 22:10 Dose: Not Given Sodium Chloride (Saline Flush) 10 ml FLUSH ASDIRECTED PRN PRN Reason: Keep Vein Open Last Admin: 01/18/19 17:26 Dose: 10 ml Sodium Chloride (Saline Flush) 10 ml FLUSH ASDIRECTED PRN PRN Reason: Keep Vein Open Last Admin: 01/18/19 17:27 Dose: 10 ml Succinylcholine Chloride (Quelicin) Confirm Administered Dose 200 mg .ROUTE .STK -MED ONE Stop: 01/18/19 19:40 Vancomycin HCl (Vancomycin) 0 gm IV .PHARMACY TO DOSE EVGENY Stop: 01/19/19 08:00 - Exam Quality Assessment: Supplemental Oxygen, Central Line/PICC, Urine Catheter, Restraints General: Alert, No Acute Distress, Sedated HEENT: Pupils Equal Lungs: Clear to Auscultation, Normal Respiratory Effort, Wheezing (mild end exp ) Cardiovascular: Regular Rate, Regular Rhythm GI/Abdominal Exam: Normal Bowel Sounds, Soft, No Distention Extremities: No Pedal Edema. No: Increased Warmth Skin: Warm, Dry Psy/Mental Status: Alert. No: Agitated - Problem List Review Problem List Initiated/Reviewed/Updated: Yes - My Orders Last 24 Hours: My Active Orders 01/25/19 05:00 Sodium Chloride 0.9% [Normal Saline] 500 ml IV ASDIRECTED 01/25/19 06:15 Sodium Chloride 0.9% [Normal Saline] 500 ml IV STAT 01/25/19 09:30 Potassium Chloride Riders [KCL 40 MEQ in Water 100 ML] 40 meq Premix Bag 1 bag IV ONETIME methylPREDNISolone Sod Succ [Solu-MEDROL] 40 mg IVPUSH Q12H 01/25/19 16:00 POTASSIUM,K [CHEM] Timed 01/26/19 05:00 BASIC METABOLIC PANEL,BMP [CHEM] Timed BLOOD GAS ARTERIAL [BG] Timed CBC W/O DIFF,HEMOGRAM [HEME] Timed (1) 01/26/19 05:11 CXR [Chest 1V Frontal] [CR] AM - Plan Plan:: ASSESSMENT AND PLAN PNEUMONIA WITH SEPTIC SHOCK - clinically he has stabilized and is off vasopressors. No fevers but slower to improve then I would expect. Respiratory status steadily improving with diuresis. Should be able to discontinue the Pip/ Tazo in the next day or 2. -Follow-up cultures -IV fluids at to keep open -Hold on diuresis today -Restart reduced dose IV steroids -Continue doxycycline -Continue Pip/Tazo (started 12/18) HYPOXIC AND HYPERCAPNIC RESPIRATORY FAILURE - secondary to pneumonia and underlying COPD. Slowly improving with diuresis and management as above. Steroids were stopped yesterday and he has some wheezing today so ongoing to restart them at a lower level. I think we have reached the end of our diuresis with a small bump in his creatinine and hypotension last night. I would anticipate readiness for extubation in the next day or so. -Diuresis as above -Intubation and mechanical ventilation, PEEP down to 5 -Nebulized albuterol and DuoNeb's -Daily chest x-ray -Daily weaning trials COPD - he may also have a component of obesity related hypoventilation -Management as above CHRONIC KIDNEY DISEASE STAGE III - kidney function decreased slightly in the past 24 hours, probably related to diuresis and he did require a small fluid bolus last night. -Sauceda catheter to closely monitor urine output -Follow-up labs for renal function in a.m. MORBID OBESITY WITH BMI GREATER THAN 50 MAINTENANCE ISSUES -DVT prophylaxis; Lovenox 40 mg subcutaneous daily -GI prophylaxis; Protonix 40 mg IV daily -Sauceda catheter; placed to closely monitor urine output any critical patient and needs to remain in place at this time -Nutrition; nothing by mouth DISPOSITION - anticipate [facility] the hospital stay. Michael Roman M.D.
[2019-01-25] MEDS ORDERED: Potassium Chloride Riders 40 MEQ in Premix Bag 1 BAG IV ONE ×2 (09:30→16:45)
[2019-01-25] MEDS ORDERED: methylPREDNISolone Sodium Succinate 40 MG/1 ML SDV IVPUSH SCH (09:30)
[2019-01-25] MEDS: methylPREDNISolone Sodium Succinate 40 MG/1 ML SDV IVPUSH SCH (12:32)
[2019-01-25] MEDS: Lactated Ringers 1,000 ML IV SCH (15:41)
[2019-01-25] MEDS: Enoxaparin 40 MG/0.4 ML Syringe SUBCUT SCH (20:14)
[2019-01-25] MEDS: Pantoprazole 40 MG Vial IVPUSH SCH (21:40)
[2019-01-25] MEDS: Sodium Chloride 0.9% 1,000 ML IV SCH (21:42)
[2019-01-26] MEDS: methylPREDNISolone Sodium Succinate 40 MG/1 ML SDV IVPUSH SCH (00:38)
[2019-01-26] MEDS: Morphine 4 MG/ML Syringe IVPUSH PRN ×3 (00:46→16:57)
[2019-01-26] MEDS: Piperacillin/Tazobactam/Dext 3.375 GM in Premix Bag 1 BAG IV SCH ×2 (02:38→08:20)
[2019-01-26] MEDS: Nystatin Topical Powder 15 GM Bottle TOP PRN (04:08)
--- NOTE | 2019-01-26 05:08 | CRLCR ---
TECHNIQUE: CHEST 1 VIEW PORTABLE INDICATION: ICU patient, lines and catheters. IMPRESSION: No new focal pulmonary opacities or pneumothorax. Cardiomediastinal structures show no abnormality. Endotracheal tube 3 cm above the mayra in satisfactory position. Minimal discoid atelectasis in the lung bases. Right PICC line placement to the level of the right subclavian vein on image #2. PICC line would require advanced into the superior vena cava at approximately 6 cm. Dictated by Amrik Mix MD @ Jan 26 2019 5:04AM Signed by Dr. Amrik Mix @ Jan 26 2019 5:07AM
[2019-01-26] MEDS: Albuterol/Ipratropium 3.0-0.5 MG/3 ML Neb Soln NEB SCH ×4 (07:35→21:27)
[2019-01-26] MEDS: Fluticasone-Salmeterol 232-14 MCG Powder Inhalent INH SCH ×2 (08:31→21:29)
--- NOTE | 2019-01-26 09:59 | PCM.PN ---
- General Info Date of Service: 01/26/19 Subjective Update: Mr. Hoskins has done well since yesterday and has undergone a spontaneous breathing trial this morning. He has done well with the spontaneous breathing trial and will be extubated this morning. Hemodynamically he is been stable and remained afebrile. White blood cell count is elevated but this is likely secondary to glucocorticoid therapy. He is still intubated and unable to provide meaningful information concerning symptoms or review of systems. - Patient Data Vitals - Most Recent: Last Vital Signs Temp 95.6 F 01/26/19 08:00 Pulse 93 01/26/19 09:00 Resp 25 H 01/26/19 09:00 BP 126/79 01/26/19 09:00 Pulse Ox 95 01/26/19 09:00 Weight - Most Recent: 363 lb 12.203 oz I&O - Last 24 Hours: Intake & Output 01/25/19 01/26/19 01/26/19 22:59 06:59 14:59 Intake Total 1059 Output Total 1410 555 Balance -1410 504 Lab Results Last 24 Hours: Laboratory Results - last 24 hr 01/25/19 01/26/19 01/26/19 Range/Units 16:08 04:07 04:07 WBC 16.3 H (4.5-11.0) K/uL RBC 4.54 (4.30-5.90) M/uL Hgb 11.6 L (12.0-15.0) g/dL Hct 37.7 L (40.0-54.0) % MCV 83 (80-98) fL MCH 26 L (27-31) pg MCHC 31 L (32-36) % Plt Count 287 (150-400) K/uL Puncture Site Line ABG pH 7.399 (7.350-7.450) ABG pCO2 50.4 H (35.0-42.0) mmHg ABG pO2 77.7 (75.0-100.0) mmHg ABG HCO3 30.5 H (22.0-26.0) mmol/L ABG Total CO2 27.6 H (23.0-27.0) mmol/L ABG O2 Saturation 94.9 L (95.0-98.0) % ABG O2 Content 15.6 (15.0-23.0) %vol ABG Base Excess 5.1 mm/L ABG Hemoglobin 11.9 L (13.5-18.0) g/dL ABG Oxyhemoglobin 92.9 % ABG Carboxyhemoglobin 1.3 (0.0-1.6) % ABG Methemoglobin 0.8 % Ruddy Test A-line O2 Delivery Device Ventilator Oxygen Flow Rate L Sodium (140-148) mmol/L Potassium 3.6 (3.6-5.2) mmol/L Chloride (100-108) mmol/L Carbon Dioxide (21-32) mmol/L Anion Gap (5.0-14.0) mmol/L BUN (7-18) mg/dL Creatinine (0.8-1.3) mg/dL Est Cr Clr Drug Dosing mL/min Estimated GFR (MDRD) (>60) Glucose (74-106) mg/dL Calcium (8.5-10.1) mg/dL 01/26/19 Range/Units 04:07 WBC (4.5-11.0) K/uL RBC (4.30-5.90) M/uL Hgb (12.0-15.0) g/dL Hct (40.0-54.0) % MCV (80-98) fL MCH (27-31) pg MCHC (32-36) % Plt Count (150-400) K/uL Puncture Site ABG pH (7.350-7.450) ABG pCO2 (35.0-42.0) mmHg ABG pO2 (75.0-100.0) mmHg ABG HCO3 (22.0-26.0) mmol/L ABG Total CO2 (23.0-27.0) mmol/L ABG O2 Saturation (95.0-98.0) % ABG O2 Content (15.0-23.0) %vol ABG Base Excess mm/L ABG Hemoglobin (13.5-18.0) g/dL ABG Oxyhemoglobin % ABG Carboxyhemoglobin (0.0-1.6) % ABG Methemoglobin % Ruddy Test O2 Delivery Device Oxygen Flow Rate L Sodium 139 L (140-148) mmol/L Potassium 4.0 (3.6-5.2) mmol/L Chloride 102 (100-108) mmol/L Carbon Dioxide 30 (21-32) mmol/L Anion Gap 11.0 (5.0-14.0) mmol/L BUN 37 H (7-18) mg/dL Creatinine 1.1 (0.8-1.3) mg/dL Est Cr Clr Drug Dosing 76.42 mL/min Estimated GFR (MDRD) > 60 (>60) Glucose 134 H (74-106) mg/dL Calcium 8.8 (8.5-10.1) mg/dL Petey Results Last 24 Hours: Microbiology 01/19/19 08:05 Fungal Culture - Preliminary Tracheal Washings NO FUNGAL GROWTH AT 1 WEEK Med Orders - Current: Current Medications Albuterol (Proventil Neb Soln) 2.5 mg NEB Q2H PRN PRN Reason: Shortness Of Breath/wheezing Albuterol/Ipratropium (Duoneb 3.0-0.5 Mg/3 Ml) 3 ml NEB QIDRT [facility] Last Admin: 01/26/19 07:35 Dose: 3 ml Enoxaparin Sodium (Lovenox) 40 mg SUBCUT BEDTIME [facility] Last Admin: 01/25/19 20:14 Dose: 40 mg Heparin Sodium (Porcine) 5,000 (units/ Sodium Chloride) 501 mls @ 5 mls/hr IV ASDIRECTED [facility] Last Admin: 01/24/19 15:30 Dose: 5 mls/hr Morphine Sulfate (Morphine) 4 mg IVPUSH Q2H PRN PRN Reason: Pain Last Admin: 01/26/19 02:54 Dose: 4 mg Nystatin (Nystop) 0 gm TOP TID PRN PRN Reason: Rash Last Admin: 01/26/19 04:08 Dose: 1 applic Ondansetron HCl (Zofran) 4 mg IV Q4H PRN PRN Reason: Nausea/Vomiting Pantoprazole Sodium (Protonix) 40 mg PO DAILY [facility] Fluticasone/Salmeterol (Fluticasone-Salmeterol 232-14 Mcg Powder Inha) 1 puff INH BIDRT [facility] Last Admin: 01/26/19 08:31 Dose: Not Given Sodium Chloride (Saline Flush) 10 ml FLUSH ASDIRECTED PRN PRN Reason: Keep Vein Open Discontinued Medications Acetylcysteine (Mucomyst 20%) 200 mg INH BIDRT [facility] Last Admin: 01/23/19 07:16 Dose: 200 mg Albuterol (Proventil Neb Soln) 2.5 mg NEB Q4H PRN PRN Reason: Shortness Of Breath/wheezing Albuterol/Ipratropium (Duoneb 3.0-0.5 Mg/3 Ml) 3 ml NEB QID [facility] Last Admin: 01/18/19 22:04 Dose: 3 ml Albuterol/Ipratropium (Duoneb 3.0-0.5 Mg/3 Ml) 3 ml INH ASDIRECTED PRN PRN Reason: Shortness of Breath Furosemide (Lasix) 40 mg IVPUSH ONETIME ONE Stop: 01/20/19 08:16 Last Admin: 01/20/19 09:48 Dose: 40 mg Furosemide (Lasix) 40 mg IVPUSH ONETIME ONE Stop: 01/20/19 21:01 Last Admin: 01/20/19 20:50 Dose: 40 mg Furosemide (Lasix) 40 mg IVPUSH ONETIME ONE Stop: 01/21/19 10:01 Last Admin: 01/21/19 09:30 Dose: 40 mg Furosemide (Lasix) 40 mg IVPUSH ONETIME ONE Stop: 01/22/19 10:01 Last Admin: 01/22/19 09:52 Dose: 40 mg Furosemide (Lasix) 40 mg IVPUSH ONETIME ONE Stop: 01/22/19 21:01 Last Admin: 01/22/19 20:56 Dose: 40 mg Furosemide (Lasix) 40 mg IVPUSH BID [facility] Stop: 01/23/19 21:01 Last Admin: 01/23/19 20:50 Dose: 40 mg Furosemide (Lasix) 40 mg IVPUSH BID [facility] Stop: 01/24/19 21:01 Last Admin: 01/24/19 20:43 Dose: 40 mg Heparin Sodium (Porcine) (Heparin Sodium) Confirm Administered Dose 5,000 units .ROUTE .STK-MED ONE Stop: 01/18/19 20:00 Last Admin: 01/18/19 21:54 Dose: 5,000 units Lactated Ringer's (Ringers, Lactated) 1,000 mls @ 999 mls/hr IV BOLUS ONE Stop: 01/18/19 19:37 Last Admin: 01/18/19 21:50 Dose: 999 mls/hr Levofloxacin/Dextrose 750 mg/ (Premix) 150 mls @ 100 mls/hr IV ONETIME ONE Stop: 01/18/19 20:06 Last Admin: 01/18/19 18:42 Dose: 100 mls/hr Norepinephrine Bitartrate 4 mg (/ Dextrose/Water) 250 mls @ 7.5 mls/hr IV TITRATE [facility]; Protocol Last Titration: 01/19/19 16:27 Dose: 0 mcg/min, 0 mls/hr Lactated Ringer's (Ringers, Lactated) 1,000 mls @ 1,000 mls/hr IV ASDIRECTED [facility] Stop: 01/18/19 21:01 Propofol (Diprivan 100 Ml) Confirm Administered Dose 100 mls @ as directed .ROUTE .STK-MED ONE Stop: 01/18/19 20:01 Last Admin: 01/18/19 22:00 Dose: Not Given Azithromycin 500 mg/ Sodium (Chloride) 250 mls @ 250 mls/hr IV Q24H [facility] Last Admin: 01/22/19 22:02 Dose: 250 mls/hr Lactated Ringer's (Ringers, Lactated) 1,000 mls @ 125 mls/hr IV ASDIRECTED [facility] Last Admin: 01/19/19 06:53 Dose: 125 mls/hr Norepinephrine Bitartrate 4 mg (/ Dextrose/Water) 250 mls @ 7.5 mls/hr IV TITRATE [facility]; Protocol Piperacillin Sod/Tazobactam (Sod 3.375 gm/ Sodium Chloride) 50 mls @ 100 mls/ hr IV Q6H [facility] Last Admin: 01/19/19 03:00 Dose: 100 mls/hr Propofol (Diprivan 100 Ml) 100 mls @ 5.416 mls/hr IV TITRATE [facility]; Protocol Last Titration: 01/26/19 08:18 Dose: 0 mcg/kg/min, 0 mls/hr Vancomycin HCl 1 gm/ Sodium (Chloride) 250 mls @ 166.667 mls/hr IV Q12H [facility] Last Admin: 01/19/19 06:59 Dose: Not Given Lactated Ringer's (Ringers, Lactated) 1,000 mls @ 999 mls/hr IV BOLUS ONE Stop: 01/18/19 22:51 Last Admin: 01/18/19 22:09 Dose: 999 mls/hr Sodium Chloride (Normal Saline) 500 mls @ 1 mls/hr IV .BOLUS ONE Stop: 02/08/19 17:53 Last Admin: 01/18/19 22:14 Dose: 1 mls/hr Sodium Chloride (Normal Saline) 1,000 mls @ 0 mls/hr IV ASDIRECTED [facility] Last Admin: 01/25/19 21:42 Dose: 25 mls/hr Vancomycin HCl 1 gm/ Sodium (Chloride) 250 mls @ 166.667 mls/hr IV Q12H [facility] Last Admin: 01/19/19 00:26 Dose: 166.667 mls/hr Piperacillin/Tazobactam/ (Dextrose 3.375 gm/ Premix) 50 mls @ 100 mls/hr IV Q6H [facility] Last Admin: 01/26/19 08:20 Dose: 100 mls/hr Vancomycin HCl 1.5 gm/ Sodium (Chloride) 250 mls @ 166.667 mls/hr IV Q12H [facility] Last Admin: 01/21/19 19:34 Dose: Not Given Lactated Ringer's (Ringers, Lactated) 1,000 mls @ 75 mls/hr IV ASDIRECTED [facility] Last Admin: 01/20/19 07:20 Dose: 75 mls/hr Acetaminophen 1,000 mg/ Premix 100 mls @ 400 mls/hr IV NOW ONE Stop: 01/19/19 20:19 Last Admin: 01/19/19 20:33 Dose: 400 mls/hr Lactated Ringer's (Ringers, Lactated) 1,000 [facility]ls [facility]: 01/25/19 15:41 Dose: 25 mls/hr Doxycycline Hyclate 100 mg/ (Sodium Chloride) 100 mls @ 100 mls/hr IV Q12H [facility] Last Admin: 01/25/19 21:40 Dose: 100 mls/hr Potassium Chloride 40 meq/ (Premix) 100 mls @ 25 mls/hr IV ONETIME ONE Stop: 01/24/19 13:29 Last Admin: 01/24/19 09:24 Dose: 25 mls/hr Potassium Chloride 40 meq/ (Premix) 100 mls @ 25 mls/hr IV ONETIME ONE Stop: 01/24/19 19:58 Last Admin: 01/24/19 16:14 Dose: 25 mls/hr Sodium Chloride (Normal Saline) 500 mls @ 500 mls/hr IV ASDIRECTED [facility] Last Admin: 01/25/19 05:00 Dose: 500 mls/hr Sodium Chloride (Normal Saline) 500 mls @ 500 mls/hr IV STAT [facility] Last Admin: 01/25/19 06:05 Dose: 500 mls/hr Potassium Chloride 40 meq/ (Premix) 100 mls @ 25 mls/hr IV ONETIME ONE Stop: 01/25/19 13:29 Last Admin: 01/25/19 09:04 Dose: 25 mls/hr Potassium Chloride 40 meq/ (Premix) 100 mls @ 25 mls/hr IV ONETIME ONE Stop: 01/25/19 20:44 Last Admin: 01/25/19 18:06 Dose: 25 mls/hr Lidocaine HCl (Xylocaine 2% Viscous) Confirm Administered Dose 15 ml .ROUTE .STK -MED ONE Stop: 01/19/19 06:47 Lidocaine HCl (Xylocaine 4% Top Soln) Confirm Administered Dose 50 ml .ROUTE .STK-MED ONE Stop: 01/19/19 06:47 Last Admin: 01/19/19 07:45 Dose: 50 ml Lorazepam (Ativan) 1 mg IVPUSH ONETIME ONE Stop: 01/18/19 18:10 Last Admin: 01/18/19 18:17 Dose: 1 mg Methylprednisolone Sodium Succinate (Solu-Medrol) 40 mg IVPUSH Q6H [facility] Last Admin: 01/23/19 15:14 Dose: 40 mg Methylprednisolone Sodium Succinate (Solu-Medrol) 40 mg IVPUSH Q12H [facility] Methylprednisolone Sodium Succinate (Solu-Medrol) 40 mg IVPUSH Q12H [facility] Last Admin: 01/26/19 00:38 Dose: 40 mg Nystatin (Nystop) 0 gm TOP QID [facility] Last Admin: 01/19/19 05:33 Dose: 1 applic Nystatin (Nystop) Confirm Administered Dose 15 gm .ROUTE .STK-MED ONE Stop: 01/19/19 00:38 Last Admin: 01/19/19 02:45 Dose: Not Given Nystatin (Nystop) 0 gm TOP QID [facility] Last Admin: 01/21/19 19:34 Dose: Not Given Pantoprazole Sodium (Protonix Iv) 40 mg IVPUSH Q24H [facility] Last Admin: 01/18/19 22:01 Dose: 40 mg Pantoprazole Sodium (Protonix Iv) 40 mg IVPUSH Q24H [facility] Last Admin: 01/25/19 21:40 Dose: 40 mg Propofol (Diprivan 20 Ml) Confirm Administered Dose 200 mg .ROUTE .STK-MED ONE Stop: 01/18/19 19:40 Fluticasone/Salmeterol (Fluticasone-Salmeterol 232-14 Mcg Powder Inha) 1 puff INH BID [facility] Last Admin: 01/18/19 22:10 Dose: Not Given Sodium Chloride (Saline Flush) 10 ml FLUSH ASDIRECTED PRN PRN Reason: Keep Vein Open Last Admin: 01/18/19 17:26 Dose: 10 ml Sodium Chloride (Saline Flush) 10 ml FLUSH ASDIRECTED PRN PRN Reason: Keep Vein Open Last Admin: 01/18/19 17:27 Dose: 10 ml Succinylcholine Chloride (Quelicin) Confirm Administered Dose 200 mg .ROUTE .STK -MED ONE Stop: 01/18/19 19:40 Vancomycin HCl (Vancomycin) 0 gm IV .PHARMACY TO DOSE [facility] Stop: 01/19/19 08:00 - Exam Quality Assessment: Supplemental Oxygen, Central Line/PICC, Urine Catheter, DVT Prophylaxis General: Alert, Cooperative, Mild Distress Lungs: Normal Respiratory Effort, Decreased Breath Sounds, Rhonchi, Wheezing Cardiovascular: Regular Rate, Regular Rhythm, No Murmurs GI/Abdominal Exam: Soft, Non-Tender, No Organomegaly, No Distention Extremities: Non-Tender, No Pedal Edema Skin: Warm, Dry, Intact - Problem List Review Problem List Initiated/Reviewed/Updated: Yes - My Orders Last 24 Hours: My Active Orders 01/26/19 Breakfast Regular Diet [DIET] 01/27/19 05:00 BASIC METABOLIC PANEL,BMP [CHEM] Timed BLOOD GAS ARTERIAL [BG] Timed CBC WITH AUTO DIFF [HEME] Timed MAGNESIUM [CHEM] Timed 01/27/19 09:00 Pantoprazole [ProTONIX] 40 mg PO DAILY - Plan Plan:: ASSESSMENT AND PLAN PNEUMONIA WITH SEPTIC SHOCK - clinically he has stabilized and is off vasopressors. Cultures remain negative thus far -Discontinue Solu-Medrol -Discontinue antibiotics HYPOXIC AND HYPERCAPNIC RESPIRATORY FAILURE - secondary to pneumonia and underlying COPD. Plan for extubation this morning -Extubate, noninvasive positive pressure ventilation as needed -Nebulized albuterol and DuoNeb's COPD - he may also have a component of obesity related hypoventilation -Management as above CHRONIC KIDNEY DISEASE STAGE III - renal function stable since yesterday -Sauceda catheter to closely monitor urine output -Follow-up labs for renal function in a.m. MORB[place] OBESITY WITH BMI GREATER THAN 50 MAINTENANCE ISSUES -DVT prophylaxis; Lovenox 40 mg subcutaneous daily -GI prophylaxis; Protonix 40 mg po daily -Remove Sauceda catheter -Nutrition; nothing by mouth DISPOSITION - anticipate discharge to detention after the hospital stay.
[2019-01-26] MEDS: Enoxaparin 40 MG/0.4 ML Syringe SUBCUT SCH (21:27)
[2019-01-27] MEDS: Morphine 4 MG/ML Syringe IVPUSH PRN ×3 (03:27→20:59)
[2019-01-27] MEDS: Albuterol/Ipratropium 3.0-0.5 MG/3 ML Neb Soln NEB SCH ×4 (07:12→20:58)
[2019-01-27] MEDS: Fluticasone-Salmeterol 232-14 MCG Powder Inhalent INH SCH ×2 (07:58→20:58)
[2019-01-27] MEDS: Pantoprazole 40 MG Tab.CR PO SCH (08:16)
[2019-01-27] MEDS ORDERED: Loperamide 2 MG Cap PO PRN (10:03)
--- NOTE | 2019-01-27 10:03 | PCM.PN ---
- General Info Date of Service: 01/27/19 Subjective Update: Mr. Hoskins has been stable status post extubation yesterday morning. Blood gases from this morning are adequate and he denies symptoms of shortness of breath. Appetite remains somewhat poor and he has been experiencing regular episodes of diarrhea. Functional Status: Reports: Pain Controlled, Tolerating Diet, Urinating - Review of Systems General: Reports: Weakness. Denies: Fever, Chills Pulmonary: Reports: No Symptoms Cardiovascular: Reports: No Symptoms Gastrointestinal: Reports: Decreased Appetite, Diarrhea. Denies: Abdominal Pain , Difficulty Swallowing, Nausea, Vomiting - Patient Data Vitals - Most Recent: Last Vital Signs Temp 96.3 F 01/27/19 08:00 Pulse 88 01/27/19 08:00 Resp 19 01/27/19 08:00 BP 110/62 01/27/19 08:00 Pulse Ox 91 L 01/27/19 08:00 Weight - Most Recent: 363 lb 12.203 oz I&O - Last 24 Hours: Intake & Output 01/26/19 01/27/19 01/27/19 22:59 06:59 14:59 Intake Total 600 240 Balance 600 240 Lab Results Last 24 Hours: Laboratory Results - last 24 hr 01/27/19 01/27/19 01/27/19 Range/Units 04:35 04:35 04:35 WBC 16.4 H (4.5-11.0) K/uL RBC 4.27 L (4.30-5.90) M/uL Hgb 11.2 L (12.0-15.0) g/dL Hct 35.4 L (40.0-54.0) % MCV 83 (80-98) fL MCH 26 L (27-31) pg MCHC 32 (32-36) % Plt Count 198 (150-400) K/uL Add Manual Diff Yes Neutrophils % (Manual) 65 (36-66) % Band Neutrophils % 2 L (5-11) % Lymphocytes % (Manual) 19 L (24-44) % Monocytes % (Manual) 8 H (2-6) % Eosinophils % (Manual) 6 H (2-4) % Puncture Site L radial ABG pH 7.368 (7.350-7.450) ABG pCO2 55.6 H (35.0-42.0) mmHg ABG pO2 68.2 L (75.0-100.0) mmHg ABG HCO3 31.2 H (22.0-26.0) mmol/L ABG Total CO2 28.7 H (23.0-27.0) mmol/L ABG O2 Saturation 92.6 L (95.0-98.0) % ABG O2 Content 14.5 L (15.0-23.0) %vol ABG Base Excess 5.2 mm/L ABG Hemoglobin 11.3 L (13.5-18.0) g/dL ABG Oxyhemoglobin 91.2 % ABG Carboxyhemoglobin 0.9 (0.0-1.6) % ABG Methemoglobin 0.6 % Ruddy Test Ok O2 Delivery Device Nasal cannula Oxygen Flow Rate 3 L Sodium 143 (140-148) mmol/L Potassium 3.6 (3.6-5.2) mmol/L Chloride 105 (100-108) mmol/L Carbon Dioxide 31 (21-32) mmol/L Anion Gap 7.3 (5.0-14.0) mmol/L BUN 35 H (7-18) mg/dL Creatinine 1.0 (0.8-1.3) mg/dL Est Cr Clr Drug Dosing 84.07 mL/min Estimated GFR (MDRD) > 60 (>60) Glucose 109 H (74-106) mg/dL Calcium 9.4 (8.5-10.1) mg/dL Magnesium 2.0 (1.8-2.4) mg/dL Petey Results Last 24 Hours: Microbiology 01/19/19 08:05 Fungal Culture - Preliminary Tracheal Washings NO FUNGAL GROWTH AT 1 WEEK Med Orders - Current: Current Medications Albuterol (Proventil Neb Soln) 2.5 mg NEB Q2H PRN PRN Reason: Shortness Of Breath/wheezing Albuterol/Ipratropium (Duoneb 3.0-0.5 Mg/3 Ml) 3 ml NEB QIDRT EVGENY Last Admin: 01/27/19 07:12 Dose: 3 ml Enoxaparin Sodium (Lovenox) 40 mg SUBCUT BEDTIME EVGENY Last Admin: 01/26/19 21:27 Dose: 40 mg Morphine Sulfate (Morphine) 4 mg IVPUSH Q2H PRN PRN Reason: Pain Last Admin: 01/27/19 03:27 Dose: 4 mg Nystatin (Nystop) 0 gm TOP TID PRN PRN Reason: Rash Last Admin: 01/26/19 04:08 Dose: 1 applic Ondansetron HCl (Zofran) 4 mg IV Q4H PRN PRN Reason: Nausea/Vomiting Pantoprazole Sodium (Protonix) 40 mg PO ACBREAKFAST COUNT INCLUDES THE [facility] Last Admin: 01/27/19 08:16 Dose: 40 mg Fluticasone/Salmeterol (Fluticasone-Salmeterol 232-14 Mcg Powder Inha) 1 puff INH BIDRT COUNT INCLUDES THE [facility] Last Admin: 01/27/19 07:58 Dose: Not Given Sodium Chloride (Saline Flush) 10 ml FLUSH ASDIRECTED PRN PRN Reason: Keep Vein Open Discontinued Medications Acetylcysteine (Mucomyst 20%) 200 mg INH BIDRT COUNT INCLUDES THE [facility] Last Admin: 01/23/19 07:16 Dose: 200 mg Albuterol (Proventil Neb Soln) 2.5 mg NEB Q4H PRN PRN Reason: Shortness Of Breath/wheezing Albuterol/Ipratropium (Duoneb 3.0-0.5 Mg/3 Ml) 3 ml NEB QID COUNT INCLUDES THE [facility] Last Admin: 01/18/19 22:04 Dose: 3 ml Albuterol/Ipratropium (Duoneb 3.0-0.5 Mg/3 Ml) 3 ml INH ASDIRECTED PRN PRN Reason: Shortness of Breath Furosemide (Lasix) 40 mg IVPUSH ONETIME ONE Stop: 01/20/19 08:16 Last Admin: 01/20/19 09:48 Dose: 40 mg Furosemide (Lasix) 40 mg IVPUSH ONETIME ONE Stop: 01/20/19 21:01 Last Admin: 01/20/19 20:50 Dose: 40 mg Furosemide (Lasix) 40 mg IVPUSH ONETIME ONE Stop: 01/21/19 10:01 Last Admin: 01/21/19 09:30 Dose: 40 mg Furosemide (Lasix) 40 mg IVPUSH ONETIME ONE Stop: 01/22/19 10:01 Last Admin: 01/22/19 09:52 Dose: 40 mg Furosemide (Lasix) 40 mg IVPUSH ONETIME ONE Stop: 01/22/19 21:01 Last Admin: 01/22/19 20:56 Dose: 40 mg Furosemide (Lasix) 40 mg IVPUSH BID EVGENY Stop: 01/23/19 21:01 Last Admin: 01/23/19 20:50 Dose: 40 mg Furosemide (Lasix) 40 mg IVPUSH BID EVGENY Stop: 01/24/19 21:01 Last Admin: 01/24/19 20:43 Dose: 40 mg Heparin Sodium (Porcine) (Heparin Sodium) Confirm Administered Dose 5,000 units .ROUTE .STK-MED ONE Stop: 01/18/19 20:00 Last Admin: 01/18/19 21:54 Dose: 5,000 units Lactated Ringer's (Ringers, Lactated) 1,000 mls @ 999 mls/hr IV BOLUS ONE Stop: 01/18/19 19:37 Last Admin: 01/18/19 21:50 Dose: 999 mls/hr Levofloxacin/Dextrose 750 mg/ (Premix) 150 mls @ 100 mls/hr IV ONETIME ONE Stop: 01/18/19 20:06 Last Admin: 01/18/19 18:42 Dose: 100 mls/hr Norepinephrine Bitartrate 4 mg (/ Dextrose/Water) 250 mls @ 7.5 mls/hr IV TITRATE EVGENY; Protocol Last Titration: 01/19/19 16:27 Dose: 0 mcg/min, 0 mls/hr Lactated Ringer's (Ringers, Lactated) 1,000 mls @ 1,000 mls/hr IV ASDIRECTED EVGENY Stop: 01/18/19 21:01 Propofol (Diprivan 100 Ml) Confirm Administered Dose 100 mls @ as directed .ROUTE .STK-MED ONE Stop: 01/18/19 20:01 Last Admin: 01/18/19 22:00 Dose: Not Given Azithromycin 500 mg/ Sodium (Chloride) 250 mls @ 250 mls/hr IV Q24H EVGENY Last Admin: 01/22/19 22:02 Dose: 250 mls/hr Lactated Ringer's (Ringers, Lactated) 1,000 mls @ 125 mls/hr IV ASDIRECTED EVGENY Last Admin: 01/19/19 06:53 Dose: 125 mls/hr Norepinephrine Bitartrate 4 mg (/ Dextrose/Water) 250 mls @ 7.5 mls/hr IV TITRATE EVGENY; Protocol Piperacillin Sod/Tazobactam (Sod 3.375 gm/ Sodium Chloride) 50 mls @ 100 mls/ hr IV Q6H COUNT INCLUDES THE [facility] Last Admin: 01/19/19 03:00 Dose: 100 mls/hr Propofol (Diprivan 100 Ml) 100 mls @ 5.416 mls/hr IV TITRATE COUNT INCLUDES THE [facility]; Protocol Last Titration: 01/26/19 08:18 Dose: 0 mcg/kg/min, 0 mls/hr Vancomycin HCl 1 gm/ Sodium (Chloride) 250 mls @ 166.667 mls/hr IV Q12H COUNT INCLUDES THE [facility] Last Admin: 01/19/19 06:59 Dose: Not Given Lactated Ringer's (Ringers, Lactated) 1,000 mls @ 999 mls/hr IV BOLUS ONE Stop: 01/18/19 22:51 Last Admin: 01/18/19 22:09 Dose: 999 mls/hr Sodium Chloride (Normal Saline) 500 mls @ 1 mls/hr IV .BOLUS ONE Stop: 02/08/19 17:53 Last Admin: 01/18/19 22:14 Dose: 1 mls/hr Sodium Chloride (Normal Saline) 1,000 mls @ 0 mls/hr IV ASDIRECTED COUNT INCLUDES THE [facility] Last Admin: 01/25/19 21:42 Dose: 25 mls/hr Vancomycin HCl 1 gm/ Sodium (Chloride) 250 mls @ 166.667 mls/hr IV Q12H COUNT INCLUDES THE [facility] Last Admin: 01/19/19 00:26 Dose: 166.667 mls/hr Piperacillin/Tazobactam/ (Dextrose 3.375 gm/ Premix) 50 mls @ 100 mls/hr IV Q6H COUNT INCLUDES THE [facility] Last Admin: 01/26/19 08:20 Dose: 100 mls/hr Heparin Sodium (Porcine) 5,000 (units/ Sodium Chloride) 501 mls @ 5 mls/hr IV ASDIRECTED COUNT INCLUDES THE [facility] Last Admin: 01/24/19 15:30 Dose: 5 mls/hr Vancomycin HCl 1.5 gm/ Sodium (Chloride) 250 mls @ 166.667 mls/hr IV Q12H COUNT INCLUDES THE [facility] Last Admin: 01/21/19 19:34 Dose: Not Given Lactated Ringer's (Ringers, Lactated) 1,000 mls @ 75 mls/hr IV ASDIRECTED COUNT INCLUDES THE [facility] Last Admin: 01/20/19 07:20 Dose: 75 mls/hr Acetaminophen 1,000 mg/ Premix 100 mls @ 400 mls/hr IV NOW ONE Stop: 01/19/19 20:19 Last Admin: 01/19/19 20:33 Dose: 400 mls/hr Lactated Ringer's (Ringers, Lactated) 1,000 mls @ 25 mls/hr IV ASDIRECTED COUNT INCLUDES THE [facility] Last Admin: 01/25/19 15:41 Dose: 25 mls/hr Doxycycline Hyclate 100 mg/ (Sodium Chloride) 100 mls @ 100 mls/hr IV Q12H COUNT INCLUDES THE [facility] Last Admin: 01/25/19 21:40 Dose: 100 mls/hr Potassium Chloride 40 meq/ (Premix) 100 mls @ 25 mls/hr IV ONETIME ONE Stop: 01/24/19 13:29 Last Admin: 01/24/19 09:24 Dose: 25 mls/hr Potassium Chloride 40 meq/ (Premix) 100 mls @ 25 mls/hr IV ONETIME ONE Stop: 01/24/19 19:58 Last Admin: 01/24/19 16:14 Dose: 25 mls/hr Sodium Chloride (Normal Saline) 500 mls @ 500 mls/hr IV ASDIRECTED COUNT INCLUDES THE [facility] Last Admin: 01/25/19 05:00 Dose: 500 mls/hr Sodium Chloride (Normal Saline) 500 mls @ 500 mls/hr IV STAT COUNT INCLUDES THE [facility] Last Admin: 01/25/19 06:05 Dose: 500 mls/hr Potassium Chloride 40 meq/ (Premix) 100 mls @ 25 mls/hr IV ONETIME ONE Stop: 01/25/19 13:29 Last Admin: 01/25/19 09:04 Dose: 25 mls/hr Potassium Chloride 40 meq/ (Premix) 100 mls @ 25 mls/hr IV ONETIME ONE Stop: 01/25/19 20:44 Last Admin: 01/25/19 18:06 Dose: 25 mls/hr Lidocaine HCl (Xylocaine 2% Viscous) Confirm Administered Dose 15 ml .ROUTE .STK -MED ONE Stop: 01/19/19 06:47 Lidocaine HCl (Xylocaine 4% Top Soln) Confirm Administered Dose 50 ml .ROUTE .STK-MED ONE Stop: 01/19/19 06:47 Last Admin: 01/19/19 07:45 Dose: 50 ml Lorazepam (Ativan) 1 mg IVPUSH ONETIME ONE Stop: 01/18/19 18:10 Last Admin: 01/18/19 18:17 Dose: 1 mg Methylprednisolone Sodium Succinate (Solu-Medrol) 40 mg IVPUSH Q6H COUNT INCLUDES THE [facility] Last Admin: 01/23/19 15:14 Dose: 40 mg Methylprednisolone Sodium Succinate (Solu-Medrol) 40 mg IVPUSH Q12H COUNT INCLUDES THE [facility] Methylprednisolone Sodium Succinate (Solu-Medrol) 40 mg IVPUSH Q12H COUNT INCLUDES THE [facility] Last Admin: 01/26/19 00:38 Dose: 40 mg Nystatin (Nystop) 0 gm TOP QID COUNT INCLUDES THE [facility] Last Admin: 01/19/19 05:33 Dose: 1 applic Nystatin (Nystop) Confirm Administered Dose 15 gm .ROUTE .STK-MED ONE Stop: 01/19/19 00:38 Last Admin: 01/19/19 02:45 Dose: Not Given Nystatin (Nystop) 0 gm TOP QID COUNT INCLUDES THE [facility] Last Admin: 01/21/19 19:34 Dose: Not Given Pantoprazole Sodium (Protonix Iv) 40 mg IVPUSH Q24H COUNT INCLUDES THE [facility] Last Admin: 01/18/19 22:01 Dose: 40 mg Pantoprazole Sodium (Protonix Iv) 40 mg IVPUSH Q24H COUNT INCLUDES THE [facility] Last Admin: 01/25/19 21:40 Dose: 40 mg Propofol (Diprivan 20 Ml) Confirm Administered Dose 200 mg .ROUTE .STK-MED ONE Stop: 01/18/19 19:40 Fluticasone/Salmeterol (Fluticasone-Salmeterol 232-14 Mcg Powder Inha) 1 puff INH BID COUNT INCLUDES THE [facility] Last Admin: 01/18/19 22:10 Dose: Not Given Sodium Chloride (Saline Flush) 10 ml FLUSH ASDIRECTED PRN PRN Reason: Keep Vein Open Last Admin: 01/18/19 17:26 Dose: 10 ml Sodium Chloride (Saline Flush) 10 ml FLUSH ASDIRECTED PRN PRN Reason: Keep Vein Open Last Admin: 01/18/19 17:27 Dose: 10 ml Succinylcholine Chloride (Quelicin) Confirm Administered Dose 200 mg .ROUTE .STK -MED ONE Stop: 01/18/19 19:40 Vancomycin HCl (Vancomycin) 0 gm IV .PHARMACY TO DOSE COUNT INCLUDES THE [facility] Stop: 01/19/19 08:00 - Exam Quality Assessment: Supplemental Oxygen, Central Line/PICC, DVT Prophylaxis. No : Urine Catheter General: Alert, Oriented, Cooperative, Mild Distress Lungs: Decreased Breath Sounds. No: Rales, Rhonchi, Rub, Wheezing Cardiovascular: Regular Rate, Regular Rhythm, No Murmurs GI/Abdominal Exam: Soft, Non-Tender, No Organomegaly, No Distention Extremities: Non-Tender, No Pedal Edema - Problem List Review Problem List Initiated/Reviewed/Updated: Yes - My Orders Last 24 Hours: My Active Orders 01/27/19 07:30 Pantoprazole [ProTONIX] 40 mg PO ACBREAKFAST 01/27/19 09:54 PT Evaluation and Treatment [CONS] Routine 01/27/19 09:56 Consult to Physical Therapy [PT Evaluation and Treatment] [CONS] Routine OT Evaluation and Treatment [CONS] Routine 01/27/19 09:58 OT Evaluation and Treatment [CONS] Routine 01/28/19 05:00 BASIC METABOLIC PANEL,BMP [CHEM] Timed BLOOD GAS ARTERIAL [BG] Timed CBC WITH AUTO DIFF [HEME] Timed - Plan Plan:: ASSESSMENT AND PLAN PNEUMONIA WITH SEPTIC SHOCK - resolved HYPOXIC AND HYPERCAPNIC RESPIRATORY FAILURE - secondary to pneumonia and underlying COPD. -Extubate, noninvasive positive pressure ventilation as needed -Nebulized albuterol and DuoNeb's -Explore home ventilator COPD - he may also have a component of obesity related hypoventilation -Management as above CHRONIC KIDNEY DISEASE STAGE III - renal function stable since yesterday -Sauceda catheter to closely monitor urine output -Follow-up labs for renal function in a.m. MORBID OBESITY WITH BMI GREATER THAN 50 SEVERE GENERALIZED WEAKNESS -Physical therapy and occupational therapy -Up to chair 3 times daily MAINTENANCE ISSUES -DVT prophylaxis; Lovenox 40 mg subcutaneous daily -GI prophylaxis; Protonix 40 mg po daily -Remove Sauceda catheter -Nutrition; nothing by mouth DISPOSITION - anticipate discharge to care home after the hospital stay.
[2019-01-27] MEDS: Lactobacillus Rhamnosus GG (Probiotic) Cap PO SCH ×2 (10:49→20:58)
[2019-01-27] MEDS: Enoxaparin 40 MG/0.4 ML Syringe SUBCUT SCH (20:58)
[2019-01-28] MEDS: Morphine 4 MG/ML Syringe IVPUSH PRN ×4 (00:47→23:53)
[2019-01-28] MEDS: Fluticasone-Salmeterol 232-14 MCG Powder Inhalent INH SCH ×2 (07:10→20:40)
[2019-01-28] MEDS: Albuterol/Ipratropium 3.0-0.5 MG/3 ML Neb Soln NEB SCH ×4 (07:10→20:39)
[2019-01-28] MEDS: Pantoprazole 40 MG Tab.CR PO SCH (07:56)
[2019-01-28] MEDS: Lactobacillus Rhamnosus GG (Probiotic) Cap PO SCH ×2 (08:00→20:40)
--- NOTE | 2019-01-28 09:47 | PCM.PN ---
- General Info Date of Service: 01/28/19 Subjective Update: Mr. Hoskins has been stable since yesterday, continues to use BiPAP at night while sleeping and napping during the day. Respiratory status overall has remained stable and he has been afebrile. Current plan is to proceed with noninvasive home ventilation for management of his CO2 retention secondary to obesity related hypoventilation and COPD. He requires mechanical noninvasive home ventilation because of his severe underlying disease. The noninvasive ventilation at home is required to decrease work of breathing and improve O Patel status. Interruption of respiratory support could lead to serious harm such as declining health status worsening condition increased risk of CO2 retention. Use of the noninvasive ventilation should hopefully help prevent readmission. Functional Status: Reports: Tolerating Diet, Urinating - Review of Systems General: Reports: Weakness. Denies: Fever, Chills Pulmonary: Reports: Shortness of Breath, Wheezing. Denies: Pleuritic Chest Pain , Cough, Sputum, Hemoptysis Cardiovascular: Reports: Dyspnea on Exertion. Denies: Chest Pain, Palpitations , Orthopnea, PND, Edema Gastrointestinal: Reports: No Symptoms - Patient Data Vitals - Most Recent: Last Vital Signs Temp 95 F L 01/28/19 07:55 Pulse 88 01/28/19 07:55 Resp 22 H 01/28/19 07:55 BP 109/64 01/28/19 07:55 Pulse Ox 94 L 01/28/19 07:55 Weight - Most Recent: 363 lb 12.203 oz I&O - Last 24 Hours: Intake & Output 01/27/19 01/28/19 01/28/19 22:59 06:59 14:59 Intake Total 580 720 Balance 580 720 Lab Results Last 24 Hours: Laboratory Results - last 24 hr 01/28/19 01/28/19 01/28/19 Range/Units 04:19 04:19 04:20 WBC 13.3 H (4.5-11.0) K/uL RBC 4.18 L (4.30-5.90) M/uL Hgb 10.8 L (12.0-15.0) g/dL Hct 35.2 L (40.0-54.0) % MCV 84 (80-98) fL MCH 26 L (27-31) pg MCHC 31 L (32-36) % Plt Count 266 (150-400) K/uL Add Manual Diff Yes Neutrophils % (Manual) 63 (36-66) % Band Neutrophils % 2 L (5-11) % Lymphocytes % (Manual) 23 L (24-44) % Monocytes % (Manual) 10 H (2-6) % Eosinophils % (Manual) 2 (2-4) % Puncture Site Rt radial ABG pH 7.411 (7.350-7.450) ABG pCO2 49.0 H (35.0-42.0) mmHg ABG pO2 87.4 (75.0-100.0) mmHg ABG HCO3 30.6 H (22.0-26.0) mmol/L ABG Total CO2 28.0 H (23.0-27.0) mmol/L ABG O2 Saturation 96.9 (95.0-98.0) % ABG O2 Content 14.7 L (15.0-23.0) %vol ABG Base Excess 5.5 mm/L ABG Hemoglobin 10.9 L (13.5-18.0) g/dL ABG Oxyhemoglobin 94.7 % ABG Carboxyhemoglobin 1.6 (0.0-1.6) % ABG Methemoglobin 0.7 % Ruddy Test Passed O2 Delivery Device Nasal cannula Oxygen Flow Rate 5 L Sodium 142 (140-148) mmol/L Potassium 3.8 (3.6-5.2) mmol/L Chloride 105 (100-108) mmol/L Carbon Dioxide 32 (21-32) mmol/L Anion Gap 4.9 L (5.0-14.0) mmol/L BUN 31 H (7-18) mg/dL Creatinine 0.9 (0.8-1.3) mg/dL Est Cr Clr Drug Dosing 93.41 mL/min Estimated GFR (MDRD) > 60 (>60) Glucose 115 H (74-106) mg/dL Calcium 9.0 (8.5-10.1) mg/dL Med Orders - Current: Current Medications Albuterol (Proventil Neb Soln) 2.5 mg NEB Q2H PRN PRN Reason: Shortness Of Breath/wheezing Albuterol/Ipratropium (Duoneb 3.0-0.5 Mg/3 Ml) 3 ml NEB QIDRT [facility] Last Admin: 01/28/19 07:10 Dose: 3 ml Enoxaparin Sodium (Lovenox) 40 mg SUBCUT BEDTIME [facility] Last Admin: 01/27/19 20:58 Dose: 40 mg Furosemide (Lasix) 20 mg PO DAILY [facility] Lactobacillus Rhamnosus (Culturelle) 1 cap PO BID [facility] Last Admin: 01/28/19 08:00 Dose: 1 cap Loperamide HCl (Imodium) 2 mg PO Q4H PRN PRN Reason: Diarrhea Last Admin: 01/27/19 11:44 Dose: 2 mg Morphine Sulfate (Morphine) 4 mg IVPUSH Q2H PRN PRN Reason: Pain Last Admin: 01/28/19 04:37 Dose: 4 mg Nystatin (Nystop) 0 gm TOP TID PRN PRN Reason: Rash Last Admin: 01/26/19 04:08 Dose: 1 applic Ondansetron HCl (Zofran) 4 mg IV Q4H PRN PRN Reason: Nausea/Vomiting Pantoprazole Sodium (Protonix) 40 mg PO ACBREAKFAST [facility] Last Admin: 01/28/19 07:56 Dose: 40 mg Fluticasone/Salmeterol (Fluticasone-Salmeterol 232-14 Mcg Powder Inha) 1 puff INH BIDRT [facility] Last Admin: 01/28/19 07:10 Dose: 1 puff Sodium Chloride (Saline Flush) 10 ml FLUSH ASDIRECTED PRN PRN Reason: Keep Vein Open Discontinued Medications Acetylcysteine (Mucomyst 20%) 200 mg INH BIDRT [facility] Last Admin: 01/23/19 07:16 Dose: 200 mg Albuterol (Proventil Neb Soln) 2.5 mg NEB Q4H PRN PRN Reason: Shortness Of Breath/wheezing Albuterol/Ipratropium (Duoneb 3.0-0.5 Mg/3 Ml) 3 ml NEB QID [facility] Last Admin: 01/18/19 22:04 Dose: 3 ml Albuterol/Ipratropium (Duoneb 3.0-0.5 Mg/3 Ml) 3 ml INH ASDIRECTED PRN PRN Reason: Shortness of Breath Furosemide (Lasix) 40 mg IVPUSH ONETIME ONE Stop: 01/20/19 08:16 Last Admin: 01/20/19 09:48 Dose: 40 mg Furosemide (Lasix) 40 mg IVPUSH ONETIME ONE Stop: 01/20/19 21:01 Last Admin: 01/20/19 20:50 Dose: 40 mg Furosemide (Lasix) 40 mg IVPUSH ONETIME ONE Stop: 01/21/19 10:01 Last Admin: 01/21/19 09:30 Dose: 40 mg Furosemide (Lasix) 40 mg IVPUSH ONETIME ONE Stop: 01/22/19 10:01 Last Admin: 01/22/19 09:52 Dose: 40 mg Furosemide (Lasix) 40 mg IVPUSH ONETIME ONE Stop: 01/22/19 21:01 Last Admin: 01/22/19 20:56 Dose: 40 mg Furosemide (Lasix) 40 mg IVPUSH BID [facility] Stop: 01/23/19 21:01 Last Admin: 01/23/19 20:50 Dose: 40 mg Furosemide (Lasix) 40 mg IVPUSH BID [facility] Stop: 01/24/19 21:01 Last Admin: 01/24/19 20:43 Dose: 40 mg Heparin Sodium (Porcine) (Heparin Sodium) Confirm Administered Dose 5,000 units .ROUTE .STK-MED ONE Stop: 01/18/19 20:00 Last Admin: 01/18/19 21:54 Dose: 5,000 units Lactated Ringer's (Ringers, Lactated) 1,000 mls @ 999 mls/hr IV BOLUS ONE Stop: 01/18/19 19:37 Last Admin: 01/18/19 21:50 Dose: 999 mls/hr Levofloxacin/Dextrose 750 mg/ (Premix) 150 mls @ 100 mls/hr IV ONETIME ONE Stop: 01/18/19 20:06 Last Admin: 01/18/19 18:42 Dose: 100 mls/hr Norepinephrine Bitartrate 4 mg (/ Dextrose/Water) 250 mls @ 7.5 mls/hr IV TITRATE [facility]; Protocol Last Titration: 01/19/19 16:27 Dose: 0 mcg/min, 0 mls/hr Lactated Ringer's (Ringers, Lactated) 1,000 mls @ 1,000 mls/hr IV ASDIRECTED [facility] Stop: 01/18/19 21:01 Propofol (Diprivan 100 Ml) Confirm Administered Dose 100 mls @ as directed .ROUTE .STK-MED ONE Stop: 01/18/19 20:01 Last Admin: 01/18/19 22:00 Dose: Not Given Azithromycin 500 mg/ Sodium (Chloride) 250 mls @ 250 mls/hr IV Q24H [facility] Last Admin: 01/22/19 22:02 Dose: 250 mls/hr Lactated Ringer's (Ringers, Lactated) 1,000 mls @ 125 mls/hr IV ASDIRECTED [facility] Last Admin: 01/19/19 06:53 Dose: 125 mls/hr Norepinephrine Bitartrate 4 mg (/ Dextrose/Water) 250 mls @ 7.5 mls/hr IV TITRATE EVGEN[facility]; Protocol Piperacillin Sod/Tazobactam (Sod 3.375 gm/ Sodium Chloride) 50 mls @ 100 mls/ hr IV Q6H [facility] Last Admin: 01/19/19 03:00 Dose: 100 mls/hr Propofol (Diprivan 100 Ml) 100 mls @ 5.416 mls/hr IV TITRATE [facility]; Protocol Last Titration: 01/26/19 08:18 Dose: 0 mcg/kg/min, 0 mls/hr Vancomycin HCl 1 gm/ Sodium (Chloride) 250 mls @ 166.667 mls/hr IV Q12H [facility] Last Admin: 01/19/19 06:59 Dose: Not Given Lactated Ringer's (Ringers, Lactated) 1,000 mls @ 999 mls/hr IV BOLUS ONE Stop: 01/18/19 22:51 Last Admin: 01/18/19 22:09 Dose: 999 mls/hr Sodium Chloride (Normal Saline) 500 mls @ 1 mls/hr IV .BOLUS ONE Stop: 02/08/19 17:53 Last Admin: 01/18/19 22:14 Dose: 1 mls/hr Sodium Chloride (Normal Saline) 1,000 mls @ 0 mls/hr IV ASDIRECTED [facility] Last Admin: 01/25/19 21:42 Dose: 25 mls/hr Vancomycin HCl 1 gm/ Sodium (Chloride) 250 mls @ 166.667 mls/hr IV Q12H [facility] Last Admin: 01/19/19 00:26 Dose: 166.667 mls/hr Piperacillin/Tazobactam/ (Dextrose 3.375 gm/ Premix) 50 mls @ 100 mls/hr IV Q6H [facility] Last Admin: 01/26/19 08:20 Dose: 100 mls/hr Heparin Sodium (Porcine) 5,000 (units/ Sodium Chloride) 501 mls @ 5 mls/hr IV ASDIRECTED [facility] Last Admin: 01/24/19 15:30 Dose: 5 mls/hr Vancomycin HCl 1.5 gm/ Sodium (Chloride) 250 mls @ 166.667 mls/hr IV Q12H [facility] Last Admin: 01/21/19 19:34 Dose: Not Given Lactated Ringer's (Ringers, Lactated) 1,000 mls @ 75 mls/hr IV ASDIRECTED [facility] Last Admin: 01/20/19 07:20 Dose: 75 mls/hr Acetaminophen 1,000 mg/ Premix 100 mls @ 400 mls/hr IV NOW ONE Stop: 01/19/19 20:19 Last Admin: 01/19/19 20:33 Dose: 400 mls/hr Lactated Ringer's (Ringers, Lactated) 1,000 mls @ 25 mls/hr IV ASDIRECTED [facility] Last Admin: 01/25/19 15:41 Dose: 25 mls/hr Doxycycline Hyclate 100 mg/ (Sodium Chloride) 100 mls @ 100 mls/hr IV Q12H [facility] Last Admin: 01/25/19 21:40 Dose: 100 mls/hr Potassium Chloride 40 meq/ (Premix) 100 mls @ 25 mls/hr IV ONETIME ONE Stop: 01/24/19 13:29 Last Admin: 01/24/19 09:24 Dose: 25 mls/hr Potassium Chloride 40 meq/ (Premix) 100 mls @ 25 mls/hr IV ONETIME ONE Stop: 01/24/19 19:58 Last Admin: 01/24/19 16:14 Dose: 25 mls/hr Sodium Chloride (Normal Saline) 500 mls @ 500 mls/hr IV ASDIRECTED [facility] Last Admin: 01/25/19 05:00 Dose: 500 mls/hr Sodium Chloride (Normal Saline) 500 mls @ 500 mls/hr IV STAT [facility] Last Admin: 01/25/19 06:05 Dose: 500 mls/hr Potassium Chloride 40 meq/ (Premix) 100 mls @ 25 mls/hr IV ONETIME ONE Stop: 01/25/19 13:29 Last Admin: 01/25/19 09:04 Dose: 25 mls/hr Potassium Chloride 40 meq/ (Premix) 100 mls @ 25 mls/hr IV ONETIME ONE Stop: 01/25/19 20:44 Last Admin: 01/25/19 18:06 Dose: 25 mls/hr Lidocaine HCl (Xylocaine 2% Viscous) Confirm Administered Dose 15 ml .ROUTE .STK -MED ONE Stop: 01/19/19 06:47 Lidocaine HCl (Xylocaine 4% Top Soln) Confirm Administered Dose 50 ml .ROUTE .STK-MED ONE Stop: 01/19/19 06:47 Last Admin: 01/19/19 07:45 Dose: 50 ml Lorazepam (Ativan) 1 mg IVPUSH ONETIME ONE Stop: 01/18/19 18:10 Last Admin: 01/18/19 18:17 Dose: 1 mg Methylprednisolone Sodium Succinate (Solu-Medrol) 40 mg IVPUSH Q6H [facility] Last Admin: 01/23/19 15:14 Dose: 40 mg Methylprednisolone Sodium Succinate (Solu-Medrol) 40 mg IVPUSH Q12H [facility] Methylprednisolone Sodium Succinate (Solu-Medrol) 40 mg IVPUSH Q12H [facility] Last Admin: 01/26/19 00:38 Dose: 40 mg Nystatin (Nystop) 0 gm TOP QID [facility] Last Admin: 01/19/19 05:33 Dose: 1 applic Nystatin (Nystop) Confirm Administered Dose 15 gm .ROUTE .STK-MED ONE Stop: 01/19/19 00:38 Last Admin: 01/19/19 02:45 Dose: Not Given Nystatin (Nystop) 0 gm TOP QID [facility] Last Admin: 01/21/19 19:34 Dose: Not Given Pantoprazole Sodium (Protonix Iv) 40 mg IVPUSH Q24H [facility] Last Admin: 01/18/19 22:01 Dose: 40 mg Pantoprazole Sodium (Protonix Iv) 40 mg IVPUSH Q24H [facility] Last Admin: 01/25/19 21:40 Dose: 40 mg Propofol (Diprivan 20 Ml) Confirm Administered Dose 200 mg .ROUTE .STK-MED ONE Stop: 01/18/19 19:40 Fluticasone/Salmeterol (Fluticasone-Salmeterol 232-14 Mcg Powder Inha) 1 puff INH BID [facility] Last Admin: 01/18/19 22:10 Dose: Not Given Sodium Chloride (Saline Flush) 10 ml FLUSH ASDIRECTED PRN PRN Reason: Keep Vein Open Last Admin: 01/18/19 17:26 Dose: 10 ml Sodium Chloride (Saline Flush) 10 ml FLUSH ASDIRECTED PRN PRN Reason: Keep Vein Open Last Admin: 01/18/19 17:27 Dose: 10 ml Succinylcholine Chloride (Quelicin) Confirm Administered Dose 200 mg .ROUTE .STK -MED ONE Stop: 01/18/19 19:40 Vancomycin HCl (Vancomycin) 0 gm IV .PHARMACY TO DOSE EVGENY Stop: 01/19/19 08:00 - Exam Quality Assessment: Supplemental Oxygen, Central Line/PICC, DVT Prophylaxis General: Alert, Oriented, Cooperative, No Acute Distress Lungs: Decreased Breath Sounds, Wheezing. No: Rales, Rhonchi Cardiovascular: Regular Rate, Regular Rhythm, No Murmurs GI/Abdominal Exam: Soft, Non-Tender, No Organomegaly, No Distention Extremities: Non-Tender, No Pedal Edema - Problem List Review Problem List Initiated/Reviewed/Updated: Yes - My Orders Last 24 Hours: My Active Orders 01/27/19 09:54 PT Evaluation and Treatment [CONS] Routine 01/27/19 09:56 Consult to Physical Therapy [PT Evaluation and Treatment] [CONS] Routine OT Evaluation and Treatment [CONS] Routine 01/27/19 09:58 OT Evaluation and Treatment [CONS] Routine 01/27/19 10:03 Loperamide [Imodium] 2 mg PO Q4H PRN 01/27/19 10:15 Lactobacillus Rhamnosus GG [Culturelle] 1 cap PO BID 01/27/19 19:32 Overnight Pulse Oximetry [RC] Click to Edit Pulse Oximetry Continuous Monitoring [OM.PC] Routine 01/28/19 09:41 Patient Status [ADT] Routine 01/28/19 09:43 Discontinue Telemetry Monitoring [Cardiac Monitoring Discontinue] [RC] Click to Edit 01/28/19 09:45 Furosemide [Lasix] 20 mg PO DAILY 01/29/19 05:00 BASIC METABOLIC PANEL,BMP [CHEM] Timed - Plan Plan:: ASSESSMENT AND PLAN PNEUMONIA WITH SEPTIC SHOCK - resolved HYPOXIC AND HYPERCAPNIC RESPIRATORY FAILURE - secondary to pneumonia and underlying COPD. -Continue noninvasive positive pressure ventilation while sleeping and -Nebulized albuterol and DuoNeb's -Explore use of noninvasive positive pressure ventilation at home COPD - he may also have a component of obesity related hypoventilation -Management as above CHRONIC KIDNEY DISEASE STAGE III - renal function stable since yesterday -Follow-up labs for renal function in a.m. MORBID OBESITY WITH BMI GREATER THAN 50 SEVERE GENERALIZED WEAKNESS -Physical therapy and occupational therapy -Up to chair 3 times daily MAINTENANCE ISSUES -DVT prophylaxis; Lovenox 40 mg subcutaneous daily -GI prophylaxis; Protonix 40 mg po daily -Remove Sauceda catheter -Nutrition; nothing by mouth DISPOSITION - anticipate discharge to [facility] after the hospital stay.
[2019-01-28] MEDS: Furosemide 20 MG Tab PO SCH (11:50)
[2019-01-28] MEDS: Enoxaparin 40 MG/0.4 ML Syringe SUBCUT SCH (20:40)
[2019-01-29] MEDS: Albuterol/Ipratropium 3.0-0.5 MG/3 ML Neb Soln NEB SCH ×3 (07:26→14:43)
[2019-01-29] MEDS: Pantoprazole 40 MG Tab.CR PO SCH (07:58)
[2019-01-29] MEDS: Fluticasone-Salmeterol 232-14 MCG Powder Inhalent INH SCH (08:20)
[2019-01-29] MEDS: Lactobacillus Rhamnosus GG (Probiotic) Cap PO SCH (09:19)
[2019-01-29] MEDS: Furosemide 20 MG Tab PO SCH (09:19)
--- NOTE | 2019-01-29 11:56 | PCM.DCSUM1 ---
Discharge Summary - Hospital Course Brief History: Mr. Hoskins is a 63-year-old gentleman who was admitted through the emergency department with acute on chronic hypoxic and hypercapnic respiratory failure secondary to bilateral pneumonia and septic shock. - Discharge Data Discharge Date: 01/29/19 Discharge Disposition: DC/Tfer to SNF 03 Condition: Fair - Discharge Diagnosis/Problem(s) (1) Septic shock SNOMED Code(s): 06209250 ICD Code: A41.9 - SEPSIS, UNSPECIFIED ORGANISM; R65.21 - SEVERE SEPSIS WITH SEPTIC SHOCK Status: Acute Current Visit: Yes (2) Acute on chronic respiratory failure with hypoxia and hypercapnia SNOMED Code(s): 46614005340624 ICD Code: J96.21 - ACUTE AND CHRONIC RESPIRATORY FAILURE WITH HYPOXIA; J96.22 - ACUTE AND CHRONIC RESPIRATORY FAILURE WITH HYPERCAPNIA Status: Acute Current Visit: Yes (3) Pneumonia SNOMED Code(s): 718291448 ICD Code: J18.9 - PNEUMONIA, UNSPECIFIED ORGANISM Status: Acute Current Visit: Yes Qualifiers: Pneumonia type: due to unspecified organism Laterality: right Lung location: lower lobe of lung Qualified Code(s): J18.1 - Lobar pneumonia, unspecified organism (4) Morbid obesity SNOMED Code(s): 401728794 ICD Code: E66.01 - MORBID (SEVERE) OBESITY DUE TO EXCESS CALORIES Status: Chronic Current Visit: No (5) COPD (chronic obstructive pulmonary disease) SNOMED Code(s): 71667639 ICD Code: J44.9 - CHRONIC OBSTRUCTIVE PULMONARY DISEASE, UNSPECIFIED Status : Acute Current Visit: Yes (6) Obesity hypoventilation syndrome SNOMED Code(s): 899587464 ICD Code: E66.2 - MORBID (SEVERE) OBESITY WITH ALVEOLAR HYPOVENTILATION Status: Acute Current Visit: Yes (7) CKD (chronic kidney disease) stage 3, GFR 30-59 ml/min SNOMED Code(s): 599108313 ICD Code: N18.3 - CHRONIC KIDNEY DISEASE, STAGE 3 (MODERATE) Status: Acute Current Visit: Yes (8) Weakness generalized SNOMED Code(s): 84310889 ICD Code: R53.1 - WEAKNESS Status: Acute Current Visit: Yes - Patient Summary/Data Consults: Consultations 01/18/19 20:44 Consult to Physician [CONS] Routine Consulting Provider: Butt,Rangel A Courtesy Call Completed to Consulting Physician: Yes Reason for Consult: Pneumonia, respiratory failure, diagnostic and therapeutic bronch Special Instructions: Bronchoscopy in a.m. 01/18/19 20:54 Consult to PICC Team [CONS] Routine Comment: Physician Instructions: 01/27/19 09:54 PT Evaluation and Treatment [CONS] Routine Please Evaluate and Treat. PT Reason for Consult: Strengthening Pending Discharge: Yes Discharge Disposition: Home w Home Health Special Instructions: will need OT eval This query below is only for informational purposes and is not editable. Admission Diagnosis/Problem: Pneumonia 01/27/19 09:56 Consult to Physical Therapy [PT Evaluation and Treatment] [CONS] Routine Please Evaluate and Treat. PT Reason for Consult: Weakness This query below is only for informational purposes and is not editable. Admission Diagnosis/Problem: Pneumonia OT Evaluation and Treatment [CONS] Routine Please Evaluate and Treat. OT Reason for Consult: Weakness This query below is only for informational purposes and is not editable. Admission Diagnosis/Problem: Pneumonia 01/27/19 09:58 OT Evaluation and Treatment [CONS] Routine Please Evaluate and Treat. OT Reason for Consult: ADL's Pending Discharge: Yes Discharge Disposition: Shelter Facility This query below is only for informational purposes and is not editable. Admission Diagnosis/Problem: Pneumonia Hospital Course: Mr. Hoskins is a 63-year-old gentleman who was admitted through the emergency department after collapsing this afternoon when he was with family. He is unable to provide meaningful history concerning recent symptoms or review of systems because of his respiratory failure and mechanical ventilation. He was brought into the emergency department and noted to have significant respiratory compromise with hypoxia and hypercapnia. He did receive a trial of noninvasive positive pressure ventilation which was unsuccessful, he has now been intubated and placed on mechanical ventilation. He had been acting more confused family notes over the past 48 hours, CT scan of the head shows no acute abnormalities. Chest x-ray shows bilateral infiltrates, atelectasis versus infection. He has been tachycardic and hypotensive while in the emergency department. He is received 1 L fluid bolus and because of persistent hypotension was started on IV norepinephrine. He had a very similar episode in August of this year that required intubation with mechanical ventilation and prolonged hospitalization. Family reports that his respiratory status has been declining over the past week where he has become more short of breath and lethargic. He was admitted to the intensive care unit for ongoing mechanical ventilation and management of his acute on chronic hypoxic and hypercapnic respiratory failure. Blood cultures were obtained in the emergency department as well as sputum cultures by endotracheal suction after intubation. He was started on broad-spectrum IV antibiotic therapy and received vigorous IV fluid replacement per sepsis protocol, for management of septic shock. Fluids did not result in significant improvement in blood pressure and for this reason he was started on a continuous infusion of IV norepinephrine. Because of the septic shock and respiratory failure he was also started on IV glucocorticoid therapy with Solu- Medrol. The day after admission he was seen and evaluated by Dr. Butt for surgical consult and bronchoscopy was performed as a therapeutic and diagnostic measure. He slowly improved over the next several days from a hemodynamic and respiratory standpoint. Cultures from blood and sputum as well as the bronchoscopy remain negative throughout his hospital stay. 8 days after intubation he was extubated and was placed on noninvasive positive pressure ventilation at night and while sleeping because of his severe chronic lung disease and obesity related hypoventilation. On discharge he will have home trilogy ventilator ordered for him for ongoing management of his severe chronic lung disease and hypoventilation. BiPAP is insufficient for the patient's needs in management of his severe chronic lung disease. Long-term home ventilator therapy is required. Prior to discharge antibiotic since been discontinued and he remained stable with no evidence of ongoing infection. He remains very weak and will require assisted admission for restorative physical therapy and occupational therapy. Prior to discharge he was counseled concerning the importance of nicotine and smoking cessation. Activity will be as tolerated and he will resume his usual diet. Follow-up with primary care at the assisted will be as needed. - Patient Instructions Diet: Usual Diet as Tolerated Activity: As Tolerated Other/Special Instructions: Discharge to the assisted for restorative physical therapy and occupational therapy. Arrange for home ventilator therapy for ongoing management of his chronic hypoxia and hypercapnia. - Discharge Plan *PRESCRIPTION DRUG MONITORING PROGRAM REVIEWED*: Not Applicable *COPY OF PRESCRIPTION DRUG MONITORING REPORT IN PATIENT RAJ: Not Applicable Prescriptions/Med Rec: Lactobacillus Rhamnosus GG [Culturelle] 1 cap PO BID #60 cap Home Medications: Home Meds Aspirin [Halfprin] 81 mg PO DAILY 09/18/18 [History] Budesonide/Formoterol [Symbicort 160-4.5 MCG] 2 puff INH BID 09/18/18 [History] Glucosamn/[place]/C/Mn/[place] [[facility] Glucosamine [place] Cplt] 1 tab PO DAILY 09/18/18 [History] Levothyroxine [Synthroid] 50 mcg PO DAILY 09/18/18 [History] Omeprazole Magnesium [Prilosec Otc] 20 mg PO DAILY 09/18/18 [History] Vitamin E 1,000 unit PO DAILY 09/18/18 [History] atorvaSTATin [Lipitor] 40 mg PO DAILY 09/18/18 [History] Acetaminophen [Tylenol] 650 mg PO Q4H PRN #100 tablet 10/01/18 [Rx] Albuterol [Proventil HFA] 2 puff INH Q4H PRN #1 inhaler 10/01/18 [Rx] Albuterol/Ipratropium [DuoNeb 3.0-0.5 MG/3 ML] 3 ml INH TID #90 neb 10/01/18 [Rx ] Nicotine [Habitrol] 21 mg TRDERM DAILY #30 patch 10/01/18 [Rx] Furosemide 40 mg PO DAILY 10/16/18 [History] Lactobacillus Rhamnosus GG [Culturelle] 1 cap PO BID #60 cap 01/29/19 [Rx] Oxygen Therapy Mode: Nasal Cannula - Discharge Summary/Plan Comment DC Time >30 min.: No - Patient Data Vitals - Most Recent: Last Vital Signs Temp 96.7 F 01/29/19 11:42 Pulse 98 01/29/19 11:42 Resp 20 01/29/19 11:42 BP 108/64 01/29/19 11:42 Pulse Ox 96 01/29/19 11:42 Weight - Most Recent: 363 lb 12.203 oz I&O - Last 24 hours: Intake & Output 01/28/19 01/29/19 01/29/19 22:59 06:59 14:59 Intake Total 236 1160 480 Output Total 200 475 Balance 236 960 5 Lab Results - Last 24 hrs: Laboratory Results - last 24 hr 01/29/19 Range/Units 05:59 Sodium 138 L (140-148) mmol/L Potassium 3.6 (3.6-5.2) mmol/L Chloride 102 (100-108) mmol/L Carbon Dioxide 31 (21-32) mmol/L Anion Gap 8.6 (5.0-14.0) mmol/L BUN 31 H (7-18) mg/dL Creatinine 0.9 (0.8-1.3) mg/dL Est Cr Clr Drug Dosing 93.41 mL/min Estimated GFR (MDRD) > 60 (>60) Glucose 159 H (74-106) mg/dL Calcium 9.2 (8.5-10.1) mg/dL Med Orders - Current: Current Medications Albuterol (Proventil Neb Soln) 2.5 mg NEB Q2H PRN PRN Reason: Shortness Of Breath/wheezing Albuterol/Ipratropium (Duoneb 3.0-0.5 Mg/3 Ml) 3 ml NEB QIDRT [facility] Last Admin: 01/29/19 10:38 Dose: 3 ml Enoxaparin Sodium (Lovenox) 40 mg SUBCUT BEDTIME [facility] Last Admin: 01/28/19 20:40 Dose: 40 mg Furosemide (Lasix) 20 mg PO DAILY [facility] Last Admin: 01/29/19 09:19 Dose: 20 mg Lactobacillus Rhamnosus (Culturelle) 1 cap PO BID [facility] Last Admin: 01/29/19 09:19 Dose: 1 cap Loperamide HCl (Imodium) 2 mg PO Q4H PRN PRN Reason: Diarrhea Last Admin: 01/27/19 11:44 Dose: 2 mg Morphine Sulfate (Morphine) 4 mg IVPUSH Q2H PRN PRN Reason: Pain Last Admin: 01/28/19 23:53 Dose: 4 mg Nystatin (Nystop) 0 gm TOP TID PRN PRN Reason: Rash Last Admin: 01/26/19 04:08 Dose: 1 applic Ondansetron HCl (Zofran) 4 mg IV Q4H PRN PRN Reason: Nausea/Vomiting Pantoprazole Sodium (Protonix) 40 mg PO ACBREAKFAST [facility] Last Admin: 01/29/19 07:58 Dose: 40 mg Fluticasone/Salmeterol (Fluticasone-Salmeterol 232-14 Mcg Powder Inha) 1 puff INH BIDRT [facility] Last Admin: 01/29/19 08:20 Dose: 1 puff Sodium Chloride (Saline Flush) 10 ml FLUSH ASDIRECTED PRN PRN Reason: Keep Vein Open Discontinued Medications Acetylcysteine (Mucomyst 20%) 200 mg INH BIDRT [facility] Last Admin: 01/23/19 07:16 Dose: 200 mg Albuterol (Proventil Neb Soln) 2.5 mg NEB Q4H PRN PRN Reason: Shortness Of Breath/wheezing Albuterol/Ipratropium (Duoneb 3.0-0.5 Mg/3 Ml) 3 ml NEB QID [facility] Last Admin: 01/18/19 22:04 Dose: 3 ml Albuterol/Ipratropium (Duoneb 3.0-0.5 Mg/3 Ml) 3 ml INH ASDIRECTED PRN PRN Reason: Shortness of Breath Furosemide (Lasix) 40 mg IVPUSH ONETIME ONE Stop: 01/20/19 08:16 Last Admin: 01/20/19 09:48 Dose: 40 mg Furosemide (Lasix) 40 mg IVPUSH ONETIME ONE Stop: 01/20/19 21:01 Last Admin: 01/20/19 20:50 Dose: 40 mg Furosemide (Lasix) 40 mg IVPUSH ONETIME ONE Stop: 01/21/19 10:01 Last Admin: 01/21/19 09:30 Dose: 40 mg Furosemide (Lasix) 40 mg IVPUSH ONETIME ONE Stop: 01/22/19 10:01 Last Admin: 01/22/19 09:52 Dose: 40 mg Furosemide (Lasix) 40 mg IVPUSH ONETIME ONE Stop: 01/22/19 21:01 Last Admin: 01/22/19 20:56 Dose: 40 mg Furosemide (Lasix) 40 mg IVPUSH BID [facility] Stop: 01/23/19 21:01 Last Admin: 01/23/19 20:50 Dose: 40 mg Furosemide (Lasix) 40 mg IVPUSH BID [facility] Stop: 01/24/19 21:01 Last Admin: 01/24/19 20:43 Dose: 40 mg Heparin Sodium (Porcine) (Heparin Sodium) Confirm Administered Dose 5,000 units .ROUTE .STK-MED ONE Stop: 01/18/19 20:00 Last Admin: 01/18/19 21:54 Dose: 5,000 units Lactated Ringer's (Ringers, Lactated) 1,000 mls @ 999 mls/hr IV BOLUS ONE Stop: 01/18/19 19:37 Last Admin: 01/18/19 21:50 Dose: 999 mls/hr Levofloxacin/Dextrose 750 mg/ (Premix) 150 mls @ 100 mls/hr IV ONETIME ONE Stop: 01/18/19 20:06 Last Admin: 01/18/19 18:42 Dose: 100 mls/hr Norepinephrine Bitartrate 4 mg (/ Dextrose/Water) 250 mls @ 7.5 mls/hr IV TITRATE [facility]; Protocol Last Titration: 01/19/19 16:27 Dose: 0 mcg/min, 0 mls/hr Lactated Ringer's (Ringers, Lactated) 1,000 mls @ 1,000 mls/hr IV ASDIRECTED [facility] Stop: 01/18/19 21:01 Propofol (Diprivan 100 Ml) Confirm Administered Dose 100 mls @ as directed .ROUTE .STK-MED ONE Stop: 01/18/19 20:01 Last Admin: 01/18/19 22:00 Dose: Not Given Azithromycin 500 mg/ Sodium (Chloride) 250 mls @ 250 mls/hr IV Q24H [facility] Last Admin: 01/22/19 22:02 Dose: 250 mls/hr Lactated Ringer's (Ringers, Lactated) 1,000 mls @ 125 mls/hr IV ASDIRECTED [facility] Last Admin: 01/19/19 06:53 Dose: 125 mls/hr Norepinephrine Bitartrate 4 mg (/ Dextrose/Water) 250 mls @ 7.5 mls/hr IV TITRATE [facility]; Protocol Piperacillin Sod/Tazobactam (Sod 3.375 gm/ Sodium Chloride) 50 mls @ 100 mls/ hr IV Q6H [facility] Last Admin: 01/19/19 03:00 Dose: 100 mls/hr Propofol (Diprivan 100 Ml) 100 mls @ 5.416 mls/hr IV TITRATE [facility]; Protocol Last Titration: 01/26/19 08:18 Dose: 0 mcg/kg/min, 0 mls/hr Vancomycin HCl 1 gm/ Sodium (Chloride) 250 mls @ 166.667 mls/hr IV Q12H [facility] Last Admin: 01/19/19 06:59 Dose: Not Given Lactated Ringer's (Ringers, Lactated) 1,000 mls @ 999 mls/hr IV BOLUS ONE Stop: 01/18/19 22:51 Last Admin: 01/18/19 22:09 Dose: 999 mls/hr Sodium Chloride (Normal Saline) 500 mls @ 1 mls/hr IV .BOLUS ONE Stop: 02/08/19 17:53 Last Admin: 01/18/19 22:14 Dose: 1 mls/hr Sodium Chloride (Normal Saline) 1,000 mls @ 0 mls/hr IV ASDIRECTED [facility] Last Admin: 01/25/19 21:42 Dose: 25 mls/hr Vancomycin HCl 1 gm/ Sodium (Chloride) 250 mls @ 166.667 mls/hr IV Q12H [facility] Last Admin: 01/19/19 00:26 Dose: 166.667 mls/hr Piperacillin/Tazobactam/ (Dextrose 3.375 gm/ Premix) 50 mls @ 100 mls/hr IV Q6H [facility] Last Admin: 01/26/19 08:20 Dose: 100 mls/hr Heparin Sodium (Porcine) 5,000 (units/ Sodium Chloride) 501 mls @ 5 mls[facility] Last Admin: 01/24/19 15:30 Dose: 5 mls/hr Vancomycin HCl 1.5 gm/ Sodium (Chloride) 250 mls @ 166.667 mls/hr IV Q12H [facility] Last Admin: 01/21/19 19:34 Dose: Not Given Lactated Ringer's (Ringers, Lactated) 1,000 mls @ 75 mls[facility]hr [facility] Last Admin: 01/20/19 07:20 Dose: 75 mls/hr Acetaminophen 1,000 mg/ Premix 100 mls @ 400 mls/hr IV NOW ONE Stop: 01/19/19 20:19 Last Admin: 01/19/19 20:33 Dose: 400 mls/hr Lactated Ringer's (Ringers, Lactated) 1,000 mls @ 25 mls/hr IV ASDIRECTED [facility] Last Admin: 01/25/19 15:41 Dose: 25 mls/hr Doxycycline Hyclate 100 mg/ (Sodium Chloride) 100 mls @ 100 mls/hr IV Q12H [facility] Last Admin: 01/25/19 21:40 Dose: 100 mls/hr Potassium Chloride 40 meq/ (Premix) 100 mls @ 25 mls/hr IV ONETIME ONE Stop: 01/24/19 13:29 Last Admin: 01/24/19 09:24 Dose: 25 mls/hr Potassium Chloride 40 meq/ (Premix) 100 mls @ 25 mls/hr IV ONETIME ONE Stop: 01/24/19 19:58 Last Admin: 01/24/19 16:14 Dose: 25 mls/hr Sodium Chloride (Normal Saline) 500 mls @ 500 mls/hr IV ASDIRECTED [facility] Last Admin: 01/25/19 05:00 Dose: 500 mls/hr Sodium Chloride (Normal Saline) 500 mls @ 500 mls/hr IV STAT [facility] Last Admin: 01/25/19 06:05 Dose: 500 mls/hr Potassium Chloride 40 meq/ (Premix) 100 mls @ 25 mls/hr IV ONETIME ONE Stop: 01/25/19 13:29 Last Admin: 01/25/19 09:04 Dose: 25 mls/hr Potassium Chloride 40 meq/ (Premix) 100 mls @ 25 mls/hr IV ONETIME ONE Stop: 01/25/19 20:44 Last Admin: 01/25/19 18:06 Dose: 25 mls/hr Lidocaine HCl (Xylocaine 2% Viscous) Confirm Administered Dose 15 ml .ROUTE .STK -MED ONE Stop: 01/19/19 06:47 Lidocaine HCl (Xylocaine 4% Top Soln) Confirm Administered Dose 50 ml .ROUTE .STK-MED ONE Stop: 01/19/19 06:47 Last Admin: 01/19/19 07:45 Dose: 50 ml Lorazepam (Ativan) 1 mg IVPUSH ONETIME ONE Stop: 01/18/19 18:10 Last Admin: 01/18/19 18:17 Dose: 1 mg Methylprednisolone Sodium Succinate (Solu-Medrol) 40 mg IVPUSH Q6H [facility] Last Admin: 01/23/19 15:14 Dose: 40 mg Methylprednisolone Sodium Succinate (Solu-Medrol) 40 mg IVPUSH Q12H [facility] Methylprednisolone Sodium Succinate (Solu-Medrol) 40 mg IVPUSH Q12H [facility] Last Admin: 01/26/19 00:38 Dose: 40 mg Nystatin (Nystop) 0 gm TOP QID [facility] Last Admin: 01/19/19 05:33 Dose: 1 applic Nystatin (Nystop) Confirm Administered Dose 15 gm .ROUTE .STK-MED ONE Stop: 01/19/19 00:38 Last Admin: 01/19/19 02:45 Dose: Not Given Nystatin (Nystop) 0 gm TOP QID [facility] Last Admin: 01/21/19 19:34 Dose: Not Given Pantoprazole Sodium (Protonix Iv) 40 mg IVPUSH Q24H [facility] Last Admin: 01/18/19 22:01 Dose: 40 mg Pantoprazole Sodium (Protonix Iv) 40 mg IVPUSH Q24H [facility] Last Admin: 01/25/19 21:40 Dose: 40 mg Propofol (Diprivan 20 Ml) Confirm Administered Dose 200 mg .ROUTE .STK-MED ONE Stop: 01/18/19 19:40 Fluticasone/Salmeterol (Fluticasone-Salmeterol 232-14 Mcg Powder Inha) 1 puff INH BID [facility] Last Admin: 01/18/19 22:10 Dose: Not Given Sodium Chloride (Saline Flush) 10 ml FLUSH ASDIRECTED PRN PRN Reason: Keep Vein Open Last Admin: 01/18/19 17:26 Dose: 10 ml Sodium Chloride (Saline Flush) 10 ml FLUSH ASDIRECTED PRN PRN Reason: Keep Vein Open Last Admin: 01/18/19 17:27 Dose: 10 ml Succinylcholine Chloride (Quelicin) Confirm Administered Dose 200 mg .ROUTE .STK -MED ONE Stop: 01/18/19 19:40 Vancomycin HCl (Vancomycin) 0 gm IV .PHARMACY TO DOSE [facility] Stop: 01/19/19 08:00 - Exam General: Reports: Alert, Oriented, Cooperative, No Acute Distress Lungs: Reports: Decreased Breath Sounds, Wheezing. Denies: Rales, Rhonchi, Rub Cardiovascular: Reports: Regular Rate, Regular Rhythm, No Murmurs GI/Abdominal Exam: Soft, Non-Tender, No Organomegaly, No Distention Extremities: Non-Tender, No Pedal Edema
== END 2019-01-29 15:20 | DRG 870 ==
LOC: JP.ED 16:50 → JP.ICU 19:28 → JP.MS 01-28 18:16
PROVIDERS: ADMIT Hospitalist; ATTEND Hospitalist
PROC: 5A09357 Assistance with Respiratory Ventilation, Less than 24 Consecutive Hours, Continuous Positive Airway Pressure (ICD-10-PCS; principal; 2019-01-18)
PROC: 0BH17EZ Insertion of Endotracheal Airway into Trachea, Via Natural or Artificial Opening (ICD-10-PCS; 2019-01-18)
PROC: 5A1955Z Respiratory Ventilation, Greater than 96 Consecutive Hours (ICD-10-PCS; 2019-01-18)
PROC: 0B978ZZ Drainage of Left Main Bronchus, Via Natural or Artificial Opening Endoscopic (ICD-10-PCS; 2019-01-19)
PROC: 0B918ZZ Drainage of Trachea, Via Natural or Artificial Opening Endoscopic (ICD-10-PCS; 2019-01-19)
PROC: 0B938ZZ Drainage of Right Main Bronchus, Via Natural or Artificial Opening Endoscopic (ICD-10-PCS; 2019-01-19)
PROC: 05HY33Z Insertion of Infusion Device into Upper Vein, Percutaneous Approach (ICD-10-PCS; 2019-01-19)
PROC: 5A09457 Assistance with Respiratory Ventilation, 24-96 Consecutive Hours, Continuous Positive Airway Pressure (ICD-10-PCS; 2019-01-26)
DX: A41.9 Sepsis, unspecified organism (principal); R65.21 Severe sepsis with septic shock; J18.1 Lobar pneumonia, unspecified organism; J96.22 Acute and chronic respiratory failure with hypercapnia; J96.21 Acute and chronic respiratory failure with hypoxia; J44.0 Chronic obstructive pulmonary disease with (acute) lower respiratory infection; Z68.43 Body mass index [BMI] 50.0-59.9, adult; E66.2 Morbid (severe) obesity with alveolar hypoventilation; E66.01 Morbid (severe) obesity due to excess calories; E87.2 Acidosis; I12.9 Hypertensive chronic kidney disease with stage 1 through stage 4 chronic kidney disease, or unspecified chronic kidney disease; N18.3 Chronic kidney disease, stage 3 (moderate); F17.210 Nicotine dependence, cigarettes, uncomplicated; M25.511 Pain in right shoulder; R15.9 Full incontinence of feces; W19.XXXA Unspecified fall, initial encounter; Y92.830 Public park as the place of occurrence of the external cause; S09.90XA Unspecified injury of head, initial encounter; S09.93XA Unspecified injury of face, initial encounter; R40.2412 Glasgow coma scale score 13-15, at arrival to emergency department; K21.9 Gastro-esophageal reflux disease without esophagitis; M19.90 Unspecified osteoarthritis, unspecified site; Z88.8 Allergy status to other drugs, medicaments and biological substances; Z79.82 Long term (current) use of aspirin; R53.1 Weakness
CPT/HCPCS: 31500; 36600 ×2; 70450; 70486; 71045; 73030; 80053; 82803 ×2; 83605; 84484; 85025; 85610; 87040 ×2; 93005; 94660; 96365; 96368; 96375; 99291; C1751; G0480; J1956; J2060; J7060; J7120; 36415; 51702; 80048; 81001; 83735; 84132; 84478; 85027; 87015; 87070; 87102; 87116; 87205; 87206; 87220; 93306; 94002; 94003; 94640; 94762; 94799; 97110-GP; 97163-GP; 97530-GP; 99285; A9270-GY; C9113; J0131; J0330; J0456; J1644; J1650; J1940; J2270; J2543; J2704; J2920; J3370; J3480; J3490; J7030; J7040; J7050; J7620-GY

== ENCOUNTER 2019-08-28 10:24 | Emergency (ER) | payer MEDICARE, MEDICAID ==
[2019-08-28] MEDS ORDERED: Naloxone 0.4 MG/ML SDV IVPUSH ONE (10:31)
[2019-08-28] MEDS ORDERED: Succinylcholine 200 MG/10 ML MDV ONE (10:37)
[2019-08-28] MEDS ORDERED: Propofol 200 MG/20 ML SDV IV ONE (10:45)
[2019-08-28] MEDS ORDERED: Lactated Ringers 1,000 ML IV SCH ×2 (10:45→12:15)
[2019-08-28] MEDS ORDERED: Rocuronium 50 MG/5 ML Vial IV ONE (10:48)
[2019-08-28] MEDS ORDERED: Piperacillin/Tazobactam/Dext 4.5 GM in Premix Bag 1 BAG IV ONE (11:00)
--- NOTE | 2019-08-28 11:02 | EDM.PDOC ---
ED HPI GENERAL MEDICAL PROBLEM - General Chief Complaint: Respiratory Problem Stated Complaint: [facility] Time Seen by Provider: 08/28/19 10:30 Source of Information: Reports: EMS, Police, RN Notes Reviewed History Limitations: Reports: Respiratory Distress - History of Present Illness INITIAL COMMENTS - FREE TEXT/NARRATIVE: 63-year-old gentleman brought in by EMS services for respiratory failure. Per report from EMS they were called to this gentleman's house as he was minimally responsive and having difficulty breathing upon their initial assessment found to be hypoxic in the 50 range, blood pressure was systolic 75 diastolic in the 40 range he did not respond to questions he had some movement of his upper extremities and neck otherwise severely obtunded. Therefore no review of systems is obtained past medical history is obtained from chart review and EMS. There was some concern of possible overdose of opiates he was given 2 doses of Narcan intranasally with minimal effect, pupils remained pinpoint throughout the entire time with EMS. - Related Data Allergies Allergy/AdvReac Type Severity Reaction Status Date / Time metformin Allergy Hives Verified 08/28/19 11:01 Home Meds: Home Meds Aspirin [Halfprin] 81 mg PO DAILY 09/18/18 [History] Budesonide/Formoterol [Symbicort 160-4.5 MCG] 2 puff INH BID 09/18/18 [History] Glucosamn/Condroitn/C/Mn/[place] [[facility]vs Glucosamine Chondroit Cplt] 1 tab PO DAILY 09/18/18 [History] Omeprazole Magnesium [Prilosec Otc] 20 mg PO BID 09/18/18 [History] Vitamin E 1,000 unit PO DAILY 09/18/18 [History] atorvaSTATin [Lipitor] 40 mg PO DAILY 09/18/18 [History] Acetaminophen [Tylenol] 650 mg PO Q4H PRN #100 tablet 10/01/18 [Rx] Albuterol [Proventil HFA] 2 puff INH Q4H PRN #1 inhaler 10/01/18 [Rx] Albuterol/Ipratropium [DuoNeb 3.0-0.5 MG/3 ML] 3 ml INH TID #90 neb 10/01/18 [Rx ] Nicotine [Habitrol] 21 mg TRDERM DAILY #30 patch 10/01/18 [Rx] Furosemide 40 mg PO DAILY 10/16/18 [History] Ferrous Fumarate [Ferrocite] 324 mg PO BID 08/28/19 [History] Levothyroxine 75 mcg PO ACBREAKFAST 08/28/19 [History] Meloxicam 15 mg PO DAILY 08/28/19 [History] Methocarbamol 1,000 mg PO Q8H 08/28/19 [History] Tamsulosin [Flomax] 1 cap PO DAILY 08/28/19 [History] Tiotropium [Spiriva HandiHaler] 18 mcg INH DAILY 08/28/19 [History] oxyCODONE HCl/Acetaminophen [Oxycodone-Acetaminophen 5-325] 2 ampule PO Q6H PRN 08/28/19 [History] Past Medical History Cardiovascular History: Reports: Hypertension Respiratory History: Reports: Bronchitis, Recurrent, Intubation, Previous Gastrointestinal History: Reports: GERD Musculoskeletal History: Reports: Arthritis Endocrine/Metabolic History: Reports: Obesity/BMI 30+ - Infectious Disease History Infectious Disease History: Reports: Chicken Pox Social & Family History - Family History Family Medical History: Unobtainable - Caffeine Use Caffeine Use: Reports: None ED ROS GENERAL - Review of Systems Review Of Systems: Unable To Obtain Reason Not Obtained: gcs 5 ED EXAM, GENERAL - Physical Exam Exam: See Below Exam Limited By: Other ([email or web address]) General Appearance: Obtunded Eye Exam: Bilateral Eye: Other (pinpoint pupils) Throat/Mouth: Other (Mucosa is dry, posterior oropharynx pink frothy fluid). No : Normal Teeth Head: Atraumatic, Normocephalic Neck: Normal Inspection, Supple, Non-Tender, Full Range of Motion Respiratory/Chest: Respiratory Distress, Decreased Breath Sounds, Rhonchi, Wheezing Cardiovascular: Regular Rate, Rhythm, No Murmur GI/Abdominal: Soft, Non-Tender ED RESPIRATORY PROCEDURES - Endotracheal Intubation Time of Intubation: 10:37 ET Intubation Indication: Respiratory Failure Preparation: Suction, Balloon Tested, BVM Set Up, Difficult Airway Equip Airway Assessment: Obese, Large Tongue Pre-Oxygenation: Assisted with BVM, 100% FiO2 Anesthesia Meds: Propofol Placement: Orotracheal, Cuffed, Uncomplicated Placement Cords Visualized: Yes ETT Size In mm: 8 Number of Attempts: 1 Confirmed By: CO2 Indicator, Bilateral Breath Sounds Tube Secured By: By RT Endotracheal Intubation Comment: Intubation done by anesthesia please see notes for details Course - Vital Signs Last Recorded V/S: Last Vital Signs Temp 96.5 F 08/28/19 15:52 Pulse 66 08/28/19 15:52 Resp 18 08/28/19 15:52 BP 101/57 L 08/28/19 15:52 Pulse Ox 95 08/28/19 15:52 - Orders/Labs/Meds Orders: Active Orders 24 hr Category Date Time Status EKG Documentation Completion [RC] ASDIRECTED Care 08/28/19 11:01 Active EKG Documentation Completion [RC] ASDIRECTED Care 08/28/19 14:08 Active Sauceda Catheter Insertion [Insert Urinary Catheter] [OM. Care 08/28/19 10:45 Ordered PC] Q24H RASS Sedation Scale [RC] ASDIRECTED Care 08/28/19 10:49 Active Urinary Catheter Assessment [RC] ASDIRECTED Care 08/28/19 10:42 Active Vital Signs [RC] Q1H Care 08/28/19 10:33 Active CULTURE BLOOD [BC] Urgent Lab 08/28/19 10:30 Received CULTURE BLOOD [BC] Urgent Lab 08/28/19 10:35 Received CULTURE RESPIRATORY + SMEAR [RM] Stat Lab 08/28/19 10:51 Results Blood Culture x2 Reflex Set [OM.PC] Urgent Oth 08/28/19 10:33 Ordered Desired Level of Sedation (RASS) [AST] Click to Edit Oth 08/28/19 10:49 Ordered EKG 12 Lead [EK] Stat Ther 08/28/19 11:01 Ordered EKG 12 Lead [EK] Stat Ther 08/28/19 14:08 Ordered Labs: Laboratory Tests 08/28/19 08/28/19 08/28/19 Range/Units 10:33 10:33 10:33 WBC 14.3 H (4.5-11.0) K/uL RBC 4.41 (4.30-5.90) M/uL Hgb 9.7 L (12.0-15.0) g/dL Hct 34.3 L (40.0-54.0) % MCV 78 L (80-98) fL MCH 22 L (27-31) pg MCHC 28 L (32-36) % Plt Count 451 H (150-400) K/uL Add Manual Diff Yes Neutrophils % (Manual) 69 H (36-66) % Band Neutrophils % 2 L (5-11) % Lymphocytes % (Manual) 26 (24-44) % Monocytes % (Manual) 2 (2-6) % Basophils % (Manual) 1 (0-1) % Nucleated RBCs 3 Polychromasia Rare Macrocytosis Few Puncture Site ABG pH (7.350-7.450) ABG pCO2 (35.0-42.0) mmHg ABG pO2 (75.0-100.0) mmHg ABG HCO3 (22.0-26.0) mmol/L ABG Total CO2 (23.0-27.0) mmol/L ABG O2 Saturation (95.0-98.0) % ABG O2 Content (15.0-23.0) %vol ABG Base Excess mm/L ABG Hemoglobin (13.5-18.0) g/dL ABG Oxyhemoglobin % ABG Carboxyhemoglobin (0.0-1.6) % ABG Methemoglobin % Ruddy Test O2 Delivery Device Oxygen Flow Rate L Sodium 137 L (140-148) mmol/L Potassium 4.2 (3.6-5.2) mmol/L Chloride 99 L (100-108) mmol/L Carbon Dioxide 34 H (21-32) mmol/L Anion Gap 8.2 (5.0-14.0) mmol/L BUN 26 H (7-18) mg/dL Creatinine 1.2 (0.8-1.3) mg/dL Est Cr Clr Drug Dosing 70.06 mL/min Estimated GFR (MDRD) > 60 (>60) Glucose 131 H (74-106) mg/dL Lactic Acid 1.2 (0.4-2.0) mmol/L Calcium 8.0 L (8.5-10.1) mg/dL Total Bilirubin 0.2 (0.2-1.0) mg/dL AST 16 (15-37) U/L ALT 24 (12-78) U/L Alkaline Phosphatase 145 H D (46-116) U/L Troponin I (0.000-0.056) ng/mL C-Reactive Protein 3.97 H (0.0-0.3) mg/dL NT-Pro-B Natriuret Pep (5-125) pg/mL Total Protein 8.0 (6.4-8.2) g/dL Albumin 2.5 L (3.4-5.0) g/dL Globulin 5.5 H (2.3-3.5) g/dL Albumin/Globulin Ratio 0.5 L (1.2-2.2) Procalcitonin ng/mL Urine Color (YELLOW) Urine Appearance (CLEAR) Urine pH (5.0-8.0) Ur Specific [place] (1.008-1.030) Urine Protein (NEGATIVE) mg/dL Urine Glucose (UA) (NEGATIVE) mg/dL Urine Ketones (NEGATIVE) mg/dL Urine Occult Blood (NEGATIVE) Urine Nitrite (NEGATIVE) Urine Bilirubin (NEGATIVE) Urine Urobilinogen (0.2-1.0) EU/dL Ur Leukocyte Esterase (NEGATIVE) Urine RBC (0-5) Urine WBC (0-5) Ur Epithelial Cells Amorphous Sediment Urine Bacteria Urine Mucus Urine Other 08/28/19 08/28/19 08/28/19 Range/Units 10:33 10:40 10:51 WBC (4.5-11.0) K/uL RBC (4.30-5.90) M/uL Hgb (12.0-15.0) g/dL Hct (40.0-54.0) % MCV (80-98) fL MCH (27-31) pg MCHC (32-36) % Plt Count (150-400) K/uL Add Manual Diff Neutrophils % (Manual) (36-66) % Band Neutrophils % (5-11) % Lymphocytes % (Manual) (24-44) % Monocytes % (Manual) (2-6) % Basophils % (Manual) (0-1) % Nucleated RBCs Polychromasia Macrocytosis Puncture Site Lt radial ABG pH 7.214 L (7.350-7.450) ABG pCO2 84.5 H* (35.0-42.0) mmHg ABG pO2 445.0 H (75.0-100.0) mmHg ABG HCO3 32.8 H (22.0-26.0) mmol/L ABG Total CO2 32.0 H (23.0-27.0) mmol/L ABG O2 Saturation 99.6 H (95.0-98.0) % ABG O2 Content 13.4 L (15.0-23.0) %vol ABG Base Excess 3.8 mm/L ABG Hemoglobin 9.3 L (13.5-18.0) g/dL ABG Oxyhemoglobin 93.3 % ABG Carboxyhemoglobin 5.2 H (0.0-1.6) % ABG Methemoglobin 1.1 % Ruddy Test Passed O2 Delivery Device Room air Oxygen Flow Rate L Sodium (140-148) mmol/L Potassium (3.6-5.2) mmol/L Chloride (100-108) mmol/L Carbon Dioxide (21-32) mmol/L Anion Gap (5.0-14.0) mmol/L BUN (7-18) mg/dL Creatinine (0.8-1.3) mg/dL Est Cr Clr Drug Dosing mL/min Estimated GFR (MDRD) (>60) Glucose (74-106) mg/dL Lactic Acid (0.4-2.0) mmol/L Calcium (8.5-10.1) mg/dL Total Bilirubin (0.2-1.0) mg/dL AST (15-37) U/L ALT (12-78) U/L Alkaline Phosphatase (46-116) U/L Troponin I (0.000-0.056) ng/mL C-Reactive Protein (0.0-0.3) mg/dL NT-Pro-B Natriuret Pep (5-125) pg/mL Total Protein (6.4-8.2) g/dL Albumin (3.4-5.0) g/dL Globulin (2.3-3.5) g/dL Albumin/Globulin Ratio (1.2-2.2) Procalcitonin < 0.05 ng/mL Urine Color Yellow (YELLOW) Urine Appearance Clear (CLEAR) Urine pH 6.0 (5.0-8.0) Ur Specific [place] 1.025 (1.008-1.030) Urine Protein 30 H (NEGATIVE) mg/dL Urine Glucose (UA) Negative (NEGATIVE) mg/dL Urine Ketones Negative (NEGATIVE) mg/dL Urine Occult Blood Negative (NEGATIVE) Urine Nitrite Negative (NEGATIVE) Urine Bilirubin Negative (NEGATIVE) Urine Urobilinogen 0.2 (0.2-1.0) EU/dL Ur Leukocyte Esterase Negative (NEGATIVE) Urine RBC 0-5 (0-5) Urine WBC 0-5 (0-5) Ur Epithelial Cells Few Amorphous Sediment Not seen Urine Bacteria Rare Urine Mucus Few Urine Other See note 08/28/19 08/28/19 08/28/19 Range/Units 11:01 11:27 14:33 WBC (4.5-11.0) K/uL RBC (4.30-5.90) M/uL Hgb (12.0-15.0) g/dL Hct (40.0-54.0) % MCV (80-98) fL MCH (27-31) pg MCHC (32-36) % Plt Count (150-400) K/uL Add Manual Diff Neutrophils % (Manual) (36-66) % Band Neutrophils % (5-11) % Lymphocytes % (Manual) (24-44) % Monocytes % (Manual) (2-6) % Basophils % (Manual) (0-1) % Nucleated RBCs Polychromasia Macrocytosis Puncture Site Lt radial ABG pH 7.290 L (7.350-7.450) ABG pCO2 67.5 H (35.0-42.0) mmHg ABG pO2 438.0 H (75.0-100.0) mmHg ABG HCO3 31.5 H (22.0-26.0) mmol/L ABG Total CO2 30.3 H (23.0-27.0) mmol/L ABG O2 Saturation 99.8 H (95.0-98.0) % ABG O2 Content 13.1 L (15.0-23.0) %vol ABG Base Excess 4.3 mm/L ABG Hemoglobin 9.0 L (13.5-18.0) g/dL ABG Oxyhemoglobin 94.2 % ABG Carboxyhemoglobin 4.5 H (0.0-1.6) % ABG Methemoglobin 1.1 % Ruddy Test Passed O2 Delivery Device Room air Oxygen Flow Rate L Sodium (140-148) mmol/L Potassium (3.6-5.2) mmol/L Chloride (100-108) mmol/L Carbon Dioxide (21-32) mmol/L Anion Gap (5.0-14.0) mmol/L BUN (7-18) mg/dL Creatinine (0.8-1.3) mg/dL Est Cr Clr Drug Dosing mL/min Estimated GFR (MDRD) (>60) Glucose (74-106) mg/dL Lactic Acid (0.4-2.0) mmol/L Calcium (8.5-10.1) mg/dL Total Bilirubin (0.2-1.0) mg/dL AST (15-37) U/L ALT (12-78) U/L Alkaline Phosphatase (46-116) U/L Troponin I 0.018 0.037 (0.000-0.056) ng/mL C-Reactive Protein (0.0-0.3) mg/dL NT-Pro-B Natriuret Pep (5-125) pg/mL Total Protein (6.4-8.2) g/dL Albumin (3.4-5.0) g/dL Globulin (2.3-3.5) g/dL Albumin/Globulin Ratio (1.2-2.2) Procalcitonin ng/mL Urine Color (YELLOW) Urine Appearance (CLEAR) Urine pH (5.0-8.0) Ur Specific [place] (1.008-1.030) Urine Protein (NEGATIVE) mg/dL Urine Glucose (UA) (NEGATIVE) mg/dL Urine Ketones (NEGATIVE) mg/dL Urine Occult Blood (NEGATIVE) Urine Nitrite (NEGATIVE) Urine Bilirubin (NEGATIVE) Urine Urobilinogen (0.2-1.0) EU/dL Ur Leukocyte Esterase (NEGATIVE) Urine RBC (0-5) Urine WBC (0-5) Ur Epithelial Cells Amorphous Sediment Urine Bacteria Urine Mucus Urine Other 08/28/19 Range/Units 14:33 WBC (4.5-11.0) K/uL RBC (4.30-5.90) M/uL Hgb (12.0-15.0) g/dL Hct (40.0-54.0) % MCV (80-98) fL MCH (27-31) pg MCHC (32-36) % Plt Count (150-400) K/uL Add Manual Diff Neutrophils % (Manual) (36-66) % Band Neutrophils % (5-11) % Lymphocytes % (Manual) (24-44) % Monocytes % (Manual) (2-6) % Basophils % (Manual) (0-1) % Nucleated RBCs Polychromasia Macrocytosis Puncture Site ABG pH (7.350-7.450) ABG pCO2 (35.0-42.0) mmHg ABG pO2 (75.0-100.0) mmHg ABG HCO3 (22.0-26.0) mmol/L ABG Total CO2 (23.0-27.0) mmol/L ABG O2 Saturation (95.0-98.0) % ABG O2 Content (15.0-23.0) %vol ABG Base Excess mm/L ABG Hemoglobin (13.5-18.0) g/dL ABG Oxyhemoglobin % ABG Carboxyhemoglobin (0.0-1.6) % ABG Methemoglobin % Ruddy Test O2 Delivery Device Oxygen Flow Rate L Sodium (140-148) mmol/L Potassium (3.6-5.2) mmol/L Chloride (100-108) mmol/L Carbon Dioxide (21-32) mmol/L Anion Gap (5.0-14.0) mmol/L BUN (7-18) mg/dL Creatinine (0.8-1.3) mg/dL Est Cr Clr Drug Dosing mL/min Estimated GFR (MDRD) (>60) Glucose (74-106) mg/dL Lactic Acid (0.4-2.0) mmol/L Calcium (8.5-10.1) mg/dL Total Bilirubin (0.2-1.0) mg/dL AST (15-37) U/L ALT (12-78) U/L Alkaline Phosphatase (46-116) U/L Troponin I (0.000-0.056) ng/mL C-Reactive Protein (0.0-0.3) mg/dL NT-Pro-B Natriuret Pep 2567 H (5-125) pg/mL Total Protein (6.4-8.2) g/dL Albumin (3.4-5.0) g/dL Globulin (2.3-3.5) g/dL Albumin/Globulin Ratio (1.2-2.2) Procalcitonin ng/mL Urine Color (YELLOW) Urine Appearance (CLEAR) Urine pH (5.0-8.0) Ur Specific [place] (1.008-1.030) Urine Protein (NEGATIVE) mg/dL Urine Glucose (UA) (NEGATIVE) mg/dL Urine Ketones (NEGATIVE) mg/dL Urine Occult Blood (NEGATIVE) Urine Nitrite (NEGATIVE) Urine Bilirubin (NEGATIVE) Urine Urobilinogen (0.2-1.0) EU/dL Ur Leukocyte Esterase (NEGATIVE) Urine RBC (0-5) Urine WBC (0-5) Ur Epithelial Cells Amorphous Sediment Urine Bacteria Urine Mucus Urine Other Meds: Medications Discontinued Medications Generic Name Dose Route Start Last Admin Trade Name Mervat PRN Reason Stop Dose Admin Lactated Ringer's 1,000 mls @ 999 mls/hr 08/28/19 10:45 08/28/19 10:32 Ringers, Lactated IV 999 mls/hr ASDIRECTED EVGENY Administration Propofol 100 mls @ 4.95 mls/hr 08/28/19 11:00 08/28/19 15:09 Diprivan 100 Ml IV 35 mcg/kg/min TITRATE EVGENY 34.65 mls/hr Administration Protocol 5 MCG/KG/MIN Piperacillin/Tazobactam/ 100 mls @ 200 mls/hr 08/28/19 11:00 08/28/19 11:08 Dextrose 4.5 gm/ Premix IV 08/28/19 11:29 200 mls/hr ONETIME ONE Administration Sodium Chloride 1,000 mls @ 999 mls/hr 08/28/19 11:15 08/28/19 10:25 Normal Saline IV 999 mls/hr ASDIRECTED EVGENY Administration Lactated Ringer's 1,000 mls @ 100 mls/hr 08/28/19 12:15 08/28/19 12:10 Ringers, Lactated IV 100 mls/hr ASDIRECTED EVGENY Administration Norepinephrine Bitartrate 4 mg 250 mls @ 7.5 mls/hr 08/28/19 14:15 08/28/19 14:21 / Dextrose/Water IV 2 mcg/min TITRATE EVGENY 7.5 mls/hr Administration Protocol 2 MCG/MIN Naloxone HCl 0.5 mg 08/28/19 10:31 08/28/19 10:37 Narcan IVPUSH 08/28/19 10:32 0.5 mg ONETIME ONE Administration Propofol 100 mg 08/28/19 10:45 08/28/19 10:36 Diprivan 20 Ml IV 08/28/19 10:46 100 mg ONETIME ONE Administration Rocuronium [place] 150 mg 08/28/19 10:48 08/28/19 10:51 Zemuron IV 08/28/19 10:49 150 mg ONETIME ONE Administration Succinylcholine Chloride Confirm 08/28/19 10:37 08/28/19 11:07 Quelicin Administered 08/28/19 10:38 Not Given Dose 200 mg .ROUTE .STK-MED ONE Departure - Departure Time of Disposition: 07:09 Disposition: DC/Tfer to Acute Hospital 02 Condition: Poor Clinical Impression: Intubation of airway performed without difficulty Respiratory failure Qualifiers: Chronicity: acute Respiratory failure complication: hypoxia and hypercapnia Qualified Code(s): J96.01 - Acute respiratory failure with hypoxia - Discharge Information Referrals: PCP,None [Primary Care Provider] - Forms: ED Department Discharge Critical Care Note - Critical Care Note Total Time (mins): 45 Sepsis Event Note - Focused Exam Date Exam was Performed: 08/29/19 Time Exam was Performed: 07:10 - My Orders Last 24 Hours: My Active Orders 08/28/19 10:30 CULTURE BLOOD [BC] Urgent 08/28/19 10:33 Vital Signs [RC] Q1H Blood Culture x2 Reflex Set [OM.PC] Urgent 08/28/19 10:35 CULTURE BLOOD [BC] Urgent 08/28/19 10:42 Urinary Catheter Assessment [RC] ASDIRECTED 08/28/19 10:45 Sauceda Catheter Insertion [Insert Urinary Catheter] [OM.PC] Q24H 08/28/19 10:49 RASS Sedation Scale [RC] ASDIRECTED Desired Level of Sedation (RASS) [AST] Click to Edit 08/28/19 10:51 CULTURE RESPIRATORY + SMEAR [RM] Stat 08/28/19 11:01 EKG Documentation Completion [RC] ASDIRECTED EKG 12 Lead [EK] Stat 08/28/19 14:08 EKG Documentation Completion [RC] ASDIRECTED EKG 12 Lead [EK] Stat - Assessment/Plan Last 24 Hours: My Active Orders 08/28/19 10:30 CULTURE BLOOD [BC] Urgent 08/28/19 10:33 Vital Signs [RC] Q1H Blood Culture x2 Reflex Set [OM.PC] Urgent 08/28/19 10:35 CULTURE BLOOD [BC] Urgent 08/28/19 10:42 Urinary Catheter Assessment [RC] ASDIRECTED 08/28/19 10:45 Sauceda Catheter Insertion [Insert Urinary Catheter] [OM.PC] Q24H 08/28/19 10:49 RASS Sedation Scale [RC] ASDIRECTED Desired Level of Sedation (RASS) [AST] Click to Edit 08/28/19 10:51 CULTURE RESPIRATORY + SMEAR [RM] Stat 01/10/20 11:01 EKG Documentation Completion [RC] ASDIRECTED EKG 12 Lead [EK] Stat 08/28/19 14:08 EKG Documentation Completion [RC] ASDIRECTED EKG 12 Lead [EK] Stat Plan: Assessment Acuity = acute Site and laterality = respiratory failure with intubation complicated the patient with known history of recurrent respiratory failure with intubation and morbid obesity Etiology = unknown Manifestations = hypoxia Location of injury = Home Lab values = WBC elevated 14.3 consistent leukocytosis, hemoglobin low at 9.7 consistent microchromic anemia pH 7.2 PCO2 84.5 and a PO2 445 bicarb 32.8 consistent with primary respiratory acidosis lactic acid normal 1.2 troponin slightly elevated 0.018 CRP elevated 3.97 chest x-ray shows diffuse bilateral interstitial opacities edema versus atypical infection, EKG demonstrates sinus rhythm and appreciate any ST elevation or depression, urinalysis unremarkable CT scan of the head no acute process Plan Call discussed case Dr. Bal emergency room physician at [facility] kindly excepted the patient at [address] scan of the head prior to transport because of his BMI he will need to be transported via EMS ground thus far he has received 2 L of fluid 4.5 g dose of Zosyn intubation was done with propofol was given rocuronium 150 mg paralytic followed by propofol drip, blood pressure did start to drop back into the 70s systolically despite 2- 1/2 L fluid challenge elect to start norepinephrine drip to maintain blood pressure This note was dictated using [employer] voice recognition software please call with any questions on syntax or grammar.
[2019-08-28] MEDS: propofoL 100 ML IV SCH ×2 (11:05→15:09)
[2019-08-28] MEDS ORDERED: Piperacillin/Tazobactam 4.5 GM in Sodium Chloride 0.9% 100 ML IV ONE (11:10)
[2019-08-28] MEDS ORDERED: Sodium Chloride 0.9% 1,000 ML IV SCH (11:15)
--- NOTE | 2019-08-28 11:31 | CRLCR ---
INDICATION: Intubation. TECHNIQUE: Chest 1 view COMPARISON: Chest radiograph 01/26/2019. FINDINGS: Endotracheal tube with tip 4.4 cm above the mayra. New diffusely increased interstitial opacities bilaterally which may be due to edema or atypical infectious process. No pleural effusion or pneumothorax. Mild cardiomegaly. Calcified tortuous aorta. IMPRESSION: 1. ETT in satisfactory position. 2. Diffusely increased interstitial opacities bilaterally may be due to edema or atypical infectious process. 3. Mild cardiomegaly. Dictated by Lilly Terry MD @ Aug 28 2019 11:28AM Signed by Dr. Lilly Terry @ Aug 28 2019 11:30AM
--- NOTE | 2019-08-28 11:35 | ANES ---
DATE OF SERVICE: 08/28/2019 Jaron is a 63-year-old male patient in our emergency department. I was requested to assess the patient for respiratory arrest by Dr. Faust Officer and assess for intubation. Upon arrival, I found a very obese male in respiratory arrest, at this point was being assisted ventilation by [id number]. I attempted to intubate the patient without sedation. The patient was responsive, and I was unable to cannulate the trachea. Then, the nurses gave 100 mg of propofol through the IV. I was able to visualize vocal cords with a MAC 3 blade. The patient was very dry, suctioned copious amounts of dry sputum in the posterior airway. I placed a #8 endotracheal tube and inflated the cuff, had bilateral breath sounds. Again, placed a suction catheter twice through that endotracheal tube to remove copious amounts of yellowish sputum. At that point, the saturation went from 90 with [id number] to 96% to 97%. Otherwise, other vitals were unchanged and within normal limits. Please refer to nurse's notes for vital signs and neuro status, which were unchanged, and tube was secured and reported off to the ER staff. The patient tolerated the procedure quite well. Lorenzo Douglas CRNA /[id number]
[2019-08-28] MEDS ORDERED: Norepinephrine 4 MG in Dextrose 5% in Water 246 ML IV SCH ×2 (14:15)
--- NOTE | 2019-08-28 14:25 | CRLCT ---
INDICATION: Unresponsive TECHNIQUE: Head CT without contrast. COMPARISON: January 18, 2019 FINDINGS: CSF spaces: Within normal limits for age. Brain parenchyma: There are nonspecific low attenuation white matter changes consistent with chronic microvascular disease. No sign of mass, hemorrhage, or midline shift. Skull base and calvarium: The visualized paranasal sinuses and mastoid air cells demonstrate no acute or significant findings. The visualized orbits are grossly unremarkable. No skull fractures. There is intracranial atherosclerosis. IMPRESSION: 1. No acute findings. 2. Nonspecific white matter disease, typical of chronic microvascular disease. Please note that all CT scans at this facility use dose modulation, iterative reconstruction, and/or weight-based dosing when appropriate to reduce radiation dose to as low as reasonably achievable. Dictated by Leanna Chen MD @ Aug 28 2019 2:22PM Signed by Dr. Leanna Chen @ Aug 28 2019 2:23PM
== END 2019-08-28 16:45 ==
LOC: JP.ED 10:24
DX: J96.01 Acute respiratory failure with hypoxia (principal); K21.9 Gastro-esophageal reflux disease without esophagitis; E66.9 Obesity, unspecified; I10 Essential (primary) hypertension; Z79.899 Other long term (current) drug therapy; Z88.8 Allergy status to other drugs, medicaments and biological substances; Z79.82 Long term (current) use of aspirin; Z68.42 Body mass index [BMI] 45.0-49.9, adult
CPT/HCPCS: 31500; 36415; 36600; 51702; 70450; 71045; 80053; 81001; 82803; 83605; 83880; 84145; 84484; 85025; 86140; 87040; 87070; 87184; 87205; 93005; 93010; 96361; 96365; 96375; 99285; 99291; J2310; J2543; J2704; J7030; J7060; J7120; J3490

== ENCOUNTER 2020-01-26 09:33 | Inpatient (IN) | payer MEDICARE, MEDICAID ==
[2020-01-26] MEDS ORDERED: Sodium Chloride 0.9% 10 ML Syringe FLUSH PRN ×2 (09:51→13:52)
--- NOTE | 2020-01-26 09:58 | EDM.PDOC ---
ED HPI GENERAL MEDICAL PROBLEM - General Chief Complaint: Lower Extremity Injury/Pain Stated Complaint: INFECTION IN LEG Time Seen by Provider: 01/26/20 09:40 Source of Information: Reports: Patient, EMS History Limitations: Reports: No Limitations - History of Present Illness INITIAL COMMENTS - FREE TEXT/NARRATIVE: 64-year-old male with morbid obesity, COPD, and extreme lower extremity edema presents by ambulance with an inability to ambulate for the past 2 days due to increased leg pain, edema, erythema and weakness. He is on oxygen at home, somewhat more short of breath than baseline with a cough but no fever or chills. His main concern is his legs which have a few ulcerations on the lower left leg and significant erythema and pain. He also has a painful area developing on the sacral area especially on the right side. His brother usually assists him into the bathroom, but he was unable to for the last 2 days. Onset: Gradual Duration: Day(s): (Worsening over the past several days) Location: Reports: Lower Extremity, Left, Lower Extremity, Right, Other (Sacral area) Quality: Reports: Burning, Stabbing Worsens with: Reports: Other (Pain increases when trying to bear weight) Associated Symptoms: Reports: Malaise, Weakness. Denies: Fever/Chills - Related Data Allergies Allergy/AdvReac Type Severity Reaction Status Date / Time metformin Allergy Hives Verified 01/26/20 09:35 Home Meds: Home Meds Aspirin [Halfprin] 81 mg PO DAILY 09/18/18 [History] Budesonide/Formoterol [Symbicort 160-4.5 MCG] 2 puff INH BID 09/18/18 [History] Glucosamn/[place]/C/Mn/[place] [[facility] Glucosamine Chondroit C[facility]] 1 tab PO DAILY 09/18/18 [History] Omeprazole Magnesium [Prilosec Otc] 20 mg PO BID 09/18/18 [History] Vitamin E 1,000 unit PO DAILY 09/18/18 [History] atorvaSTATin [Lipitor] 40 mg PO DAILY 09/18/18 [History] Acetaminophen [Tylenol] 650 mg PO Q4H PRN #100 tablet 10/01/18 [Rx] Albuterol [Proventil HFA] 2 puff INH Q4H PRN #1 inhaler 10/01/18 [Rx] Albuterol/Ipratropium [DuoNeb 3.0-0.5 MG/3 ML] 3 ml INH TID #90 neb 10/01/18 [Rx ] Furosemide 40 mg PO DAILY 10/16/18 [History] Ferrous Fumarate [Ferrocite] 324 mg PO BID 08/28/19 [History] Levothyroxine 0.88 mcg PO ACBREAKFAST 08/28/19 [History] Meloxicam 15 mg PO DAILY 08/28/19 [History] Tamsulosin [Flomax] 0.8 mg PO DAILY 08/28/19 [History] Tiotropium [Spiriva HandiHaler] 18 mcg INH DAILY 08/28/19 [History] methocarbamoL [Methocarbamol] 1,000 mg PO Q8H 08/28/19 [History] oxyCODONE HCl/Acetaminophen [Oxycodone-Acetaminophen 5-325] 5 mg PO Q6H PRN 06/07 [History] Bumetanide [Bumex] 5 mg PO DAILY 01/26/20 [History] Finasteride [Proscar] 5 mg PO DAILY 01/26/20 [History] Potassium Chloride [Klor-Con] 60 meq PO DAILY 01/26/20 [History] Spironolactone [Aldactone] 12.5 mg PO DAILY 01/26/20 [History] Past Medical History Cardiovascular History: Reports: Hypertension Respiratory History: Reports: Bronchitis, Recurrent, Intubation, Previous Gastrointestinal History: Reports: GERD Musculoskeletal History: Reports: Arthritis Endocrine/Metabolic History: Reports: Obesity/BMI 30+ - Infectious Disease History Infectious Disease History: Reports: Chicken Pox Social & Family History - Family History Family Medical History: Unobtainable - Caffeine Use Caffeine Use: Reports: None Caffeine Use Comment: patient unresponsive Review of Systems - Review of Systems Review Of Systems: See Below Constitutional: Denies: Fever Eyes: Reports: No Symptoms Respiratory: Reports: Shortness of Breath, Cough Cardiovascular: Denies: Chest Pain GI/Abdominal: Denies: Abdominal Pain, Nausea, Vomiting Musculoskeletal: Reports: Leg Pain Skin: Reports: Erythema, Other (Shallow ulcerations are present on the lower leg on the left, a few small lesions on the right heel. There is erythema in the buttock crease with tenderness on the right lower area and early skin breakdown) ED EXAM, GENERAL - Physical Exam Exam: See Below Free Text/Narrative:: Patient is alert, able to talk in full sentences but has a raspy respiration and O2 saturations are 87 to 90% on nasal cannula oxygen. I am not sure what his baseline is. He is oxygen dependent at home but continues to smoke. General Appearance: Alert, No Apparent Distress Eye Exam: Bilateral Eye: Normal Inspection (No jaundice) Head: Atraumatic Respiratory/Chest: No Respiratory Distress, Rhonchi, Wheezing (Patient has diffuse bilateral rhonchi and expiratory wheezes) GI/Abdominal: Other (Morbidly obese and difficult to examine) Extremities: Other (Extreme lower extremity edema throughout the lower extremities, significant warmth and erythema to the lower legs especially on the left with shallow ulcerations that are 3 cm across on the medial aspect of the left ankle. Less erythema on the right. These areas are tender to palpation.) Neurological: Alert, Oriented Skin Exam: Warm, Dry, Other (Erythema in the buttock crease with some early breakdown of the epidermis on the left distal buttock crease and sacral area, no ulceration.) Course - Vital Signs Last Recorded V/S: Last Vital Signs Temp 96.5 F L 01/26/20 13:52 Pulse 83 01/26/20 13:52 Resp 24 H 01/26/20 13:52 BP 102/60 01/26/20 13:52 Pulse Ox 90 L 01/26/20 13:52 - Orders/Labs/Meds Orders: Active Orders 24 hr Category Date Time Status Patient Status [ADT] Routine ADT 01/26/20 13:52 Active Ambulate [RC] QID Care 01/26/20 13:52 Active Height and Weight [RC] DAILY Care 01/26/20 13:52 Active Intake and Output [RC] QSHIFT Care 01/26/20 13:52 Active Notify Provider Vital Signs [RC] ASDIRECTED Care 01/26/20 13:52 Active Oxygen Therapy [RC] PRN Care 01/26/20 13:52 Active Up With Assistance [RC] ASDIRECTED Care 01/26/20 13:52 Active Up to Chair [RC] QID Care 01/26/20 13:52 Active VTE/DVT Education [RC] Per Unit Routine Care 01/26/20 13:52 Active Vital Signs [RC] Q4H Care 01/26/20 13:52 Active 2 Gram Sodium Diet [DIET] Diet 01/26/20 Lunch Active BASIC METABOLIC PANEL,BMP [CHEM] AM Lab 01/27/20 05:11 Ordered CBC WITH AUTO DIFF [HEME] AM Lab 01/27/20 05:11 Ordered CULTURE BLOOD [BC] Urgent Lab 01/26/20 10:20 Received CULTURE BLOOD [BC] Urgent Lab 01/26/20 10:33 Received MAGNESIUM [CHEM] AM Lab 01/27/20 05:11 Ordered PROCALCITONIN [CHEM] Routine Lab 01/27/20 05:00 Ordered Acetaminophen [Tylenol] Med 01/26/20 13:52 Active 650 mg PO Q4H PRN Acetaminophen/oxyCODONE [Percocet 325-5 MG] Med 01/26/20 13:52 Active 1 tab PO Q6H PRN Albuterol [Ventolin HFA] Med 01/26/20 13:52 Ordered DOSE gm INH Q4H PRN Albuterol/Ipratropium [DuoNeb 3.0-0.5 MG/3 ML] Med 01/26/20 14:00 Ordered 3 ml INH TID Aspirin [Halfprin] Med 01/27/20 09:00 Active 81 mg PO DAILY Budesonide/Formoterol [Symbicort 160-4.5 MCG] Med 01/26/20 21:00 Ordered 2 puff INH BID Enoxaparin [Lovenox] Med 01/26/20 16:00 Active 40 mg SUBCUT Q24H Finasteride [Proscar] Med 01/27/20 09:00 Active 5 mg PO DAILY Furosemide [Lasix] Med 01/26/20 21:00 Once 40 mg IVPUSH NOW ONE Levothyroxine [Levothyroxine] Med 01/27/20 07:30 Ordered 0.88 mcg PO ACBREAKFAST Omeprazole Magnesium [Prilosec Otc] Med 01/26/20 21:00 Ordered 20 mg PO BID Ondansetron [Zofran] Med 01/26/20 13:52 Ordered 4 mg IV Q4H PRN Potassium Chloride [Klor-Con] Med 01/27/20 09:00 Ordered 60 meq PO DAILY Sodium Chloride 0.9% [Saline Flush] Med 01/26/20 13:52 Ordered 10 ml FLUSH ASDIRECTED PRN Spironolactone [Aldactone] Med 01/27/20 09:00 Ordered 12.5 mg PO DAILY Tamsulosin [Flomax] Med 01/27/20 09:00 Ordered 0.8 mg PO DAILY Tiotropium [Spiriva HandiHaler] Med 01/27/20 09:00 Ordered 18 mcg INH DAILY atorvaSTATin [Lipitor] Med 01/27/20 09:00 Active 40 mg PO DAILY polyethylene glycoL 3350 [MiraLAX] Med 01/26/20 13:52 Ordered 17 gm PO DAILY PRN Blood Culture x2 Reflex Set [OM.PC] Urgent Oth 01/26/20 09:50 Ordered Saline Lock Insert [OM.PC] Routine Oth 01/26/20 13:52 Ordered Resuscitation Status Routine Resus Stat 01/26/20 11:45 Ordered Medication Orders Acetaminophen (Tylenol) 650 mg PO Q4H PRN PRN Reason: Pain/Fever Albuterol (Ventolin Hfa) gm INH Q4H PRN PRN Reason: Shortness of Breath Albuterol/Ipratropium (Duoneb 3.0-0.5 Mg/3 Ml) 3 ml INH TID [facility] Aspirin (Halfprin) 81 mg PO DAILY [facility] Atorvastatin Calcium (Lipitor) 40 mg PO DAILY [facility] Enoxaparin Sodium (Lovenox) 40 mg SUBCUT Q24H [facility] Finasteride (Proscar) 5 mg PO DAILY [facility] Furosemide (Lasix) 40 mg IVPUSH NOW ONE Stop: 01/26/20 21:01 Furosemide (Lasix) 40 mg IVPUSH Q12H [facility] Non-Formulary Medication (Budesonide/Formoterol [Symbicort 160-4.5 Mcg]) 2 puff INH BID [facility] Non-Formulary Medication (Levothyroxine [Levothyroxine]) 0.88 mcg PO ACBREAKFAST [facility] Non-Formulary Medication (Omeprazole Magnesium [Prilosec Otc]) 20 mg PO BID [facility] Non-Formulary Medication (Potassium Chloride [Klor-Con]) 60 meq PO DAILY [facility] Non-Formulary Medication (Tiotropium [Spiriva Handihaler]) 18 mcg INH DAILY [facility] Ondansetron HCl (Zofran) 4 mg IV Q4H PRN PRN Reason: Nausea/Vomiting Oxycodone/Acetaminophen (Percocet 325-5 Mg) 1 tab PO Q6H PRN PRN Reason: Pain (severe 7-10) Polyethylene Glycol (Miralax) 17 gm PO DAILY PRN PRN Reason: Constipation Sodium Chloride (Saline Flush) 10 ml FLUSH ASDIRECTED PRN PRN Reason: Keep Vein Open Spironolactone (Aldactone) 12.5 mg PO DAILY [facility] Tamsulosin HCl (Flomax) 0.8 mg PO DAILY [facility] Labs: Laboratory Tests 01/26/20 01/26/20 01/26/20 Range/Units 10:28 10:28 10:28 WBC 12.0 H (4.5-11.0) K/uL RBC 4.58 (4.30-5.90) M/uL Hgb 11.0 L (12.0-15.0) g/dL Hct 37.7 L (40.0-54.0) % MCV 82 (80-98) fL MCH 24 L (27-31) pg MCHC 29 L (32-36) % Plt Count 292 (150-400) K/uL Add Manual Diff Yes Neutrophils % (Manual) 76 H (36-66) % Band Neutrophils % 3 L (5-11) % Lymphocytes % (Manual) 13 L (24-44) % Monocytes % (Manual) 6 (2-6) % Eosinophils % (Manual) 2 (2-4) % Sodium 139 L (140-148) mmol/L Potassium 4.2 (3.6-5.2) mmol/L Chloride 98 L (100-108) mmol/L Carbon Dioxide 40 H (21-32) mmol/L Anion Gap 5.2 (5.0-14.0) mmol/L BUN 29 H (7-18) mg/dL Creatinine 1.2 (0.8-1.3) mg/dL Est Cr Clr Drug Dosing 69.16 mL/min Estimated GFR (MDRD) > 60 (>60) Glucose 124 H (74-106) mg/dL Lactic Acid 0.7 (0.4-2.0) mmol/L Calcium 8.5 (8.5-10.1) mg/dL Total Bilirubin 0.3 (0.2-1.0) mg/dL AST 13 L (15-37) U/L ALT 21 (12-78) U/L Alkaline Phosphatase 120 H (46-116) U/L C-Reactive Protein (0.0-0.3) mg/dL Total Protein 7.8 (6.4-8.2) g/dL Albumin 2.8 L (3.4-5.0) g/dL Globulin 5.0 H (2.3-3.5) g/dL Albumin/Globulin Ratio 0.6 L (1.2-2.2) Procalcitonin ng/mL 01/26/20 01/26/20 Range/Units 10:28 10:28 WBC (4.5-11.0) K/uL RBC (4.30-5.90) M/uL Hgb (12.0-15.0) g/dL Hct (40.0-54.0) % MCV (80-98) fL MCH (27-31) pg MCHC (32-36) % Plt Count (150-400) K/uL Add Manual Diff Neutrophils % (Manual) (36-66) % Band Neutrophils % (5-11) % Lymphocytes % (Manual) (24-44) % Monocytes % (Manual) (2-6) % Eosinophils % (Manual) (2-4) % Sodium (140-148) mmol/L Potassium (3.6-5.2) mmol/L Chloride (100-108) mmol/L Carbon Dioxide (21-32) mmol/L Anion Gap (5.0-14.0) mmol/L BUN (7-18) mg/dL Creatinine (0.8-1.3) mg/dL Est Cr Clr Drug Dosing mL/min Estimated GFR (MDRD) (>60) Glucose (74-106) mg/dL Lactic Acid (0.4-2.0) mmol/L Calcium (8.5-10.1) mg/dL Total Bilirubin (0.2-1.0) mg/dL AST (15-37) U/L ALT (12-78) U/L Alkaline Phosphatase (46-116) U/L C-Reactive Protein 0.87 H (0.0-0.3) mg/dL Total Protein (6.4-8.2) g/dL Albumin (3.4-5.0) g/dL Globulin (2.3-3.5) g/dL Albumin/Globulin Ratio (1.2-2.2) Procalcitonin < 0.05 ng/mL Meds: Medications Generic Name Dose Route Start Last Admin Trade Name Freq PRN Reason Stop Dose Admin Acetaminophen 650 mg 01/26/20 13:52 Tylenol PO Q4H PRN Pain/Fever Albuterol gm 01/26/20 13:52 Ventolin Hfa INH Q4H PRN Shortness of Breath Albuterol/Ipratropium 3 ml 01/26/20 14:00 Duoneb 3.0-0.5 Mg/3 Ml INH TID [facility] Aspirin 81 mg 01/27/20 09:00 Halfprin PO DAILY [facility] Atorvastatin Calcium 40 mg 01/27/20 09:00 Lipitor PO DAILY [facility] Enoxaparin Sodium 40 mg 01/26/20 16:00 Lovenox SUBCUT Q24H [facility] Finasteride 5 mg 01/27/20 09:00 Proscar PO DAILY [facility] Furosemide 40 mg 01/26/20 21:00 Lasix IVPUSH 01/26/20 21:01 NOW ONE Furosemide 40 mg 01/27/20 07:00 Lasix IVPUSH Q12H [facility] Non-Formulary Medication 2 puff 01/26/20 21:00 Budesonide/Formoterol [Symbicort 160-4.5 Mcg] INH BID [facility] Non-Formulary Medication 0.88 mcg 01/27/20 07:30 Levothyroxine [Levothyroxine] PO ACBREAKFAST [facility] Non-Formulary Medication 20 mg 01/26/20 21:00 Omeprazole Magnesium [Prilosec Otc] PO BID [facility] Non-Formulary Medication 60 meq 01/27/20 09:00 Potassium Chloride [Klor-Con] PO DAILY [facility] Non-Formulary Medication 18 mcg 01/27/20 09:00 Tiotropium [Spiriva Handihaler] INH DAILY [facility] Ondansetron HCl 4 mg 01/26/20 13:52 Zofran IV Q4H PRN Nausea/Vomiting Oxycodone/Acetaminophen 1 tab 01/26/20 13:52 Percocet 325-5 Mg PO Q6H PRN Pain (severe 7-10) Polyethylene Glycol 17 gm 01/26/20 13:52 Miralax PO DAILY PRN Constipation Sodium Chloride 10 ml 01/26/20 13:52 Saline Flush FLUSH ASDIRECTED PRN Keep Vein Open Spironolactone 12.5 mg 01/27/20 09:00 Aldactone PO DAILY [facility] Tamsulosin HCl 0.8 mg 01/27/20 09:00 Flomax PO DAILY [facility] Discontinued Medications Generic Name Dose Route Start Last Admin Trade Name Mervat PRN Reason Stop Dose Admin Albuterol/Ipratropium 3 ml 01/26/20 10:04 01/26/20 10:38 Duoneb 3.0-0.5 Mg/3 Ml NEB 01/26/20 10:05 3 ml ONETIME ONE Administration Furosemide 40 mg 01/26/20 11:50 01/26/20 12:30 Lasix IVPUSH 01/26/20 11:51 40 mg NOW ONE Administration Lidocaine HCl 5 ml 01/26/20 13:05 01/26/20 13:33 Xylocaine-Mpf 1% INJECT 01/26/20 13:06 5 ml ONETIME ONE Administration Sodium Chloride 10 ml 01/26/20 09:51 01/26/20 10:41 Saline Flush FLUSH 10 ml ASDIRECTED PRN Administration Keep Vein Open - Re-Assessments/Exams Free Text/Narrative Re-Assessment/Exam: 01/26/20 10:02 1 view chest x-ray will be obtained as well as a saline lock. This patient does not present as septic, but blood cultures, lactic acid, CBC and CMP will be obtained. He will likely need hospitalization for IV antibiotics and probable diuresis. 01/26/20 11:29 White count is 12,000, CRP is only mildly elevated and procalcitonin is 0. Dr. 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 Departure - Departure Time of Disposition: 13:51 Disposition: Admitted As Inpatient 67 Clinical Impression: Bilateral lower leg cellulitis, Obesity hypoventilation syndrome, Weakness generalized, Morbid obesity COPD (chronic obstructive pulmonary disease) Qualifiers: COPD type: chronic bronchitis Chronic bronchitis type: mixed simple and mucopurulent Qualified Code(s): J41.8 - Mixed simple and mucopurulent chronic bronchitis - Discharge Information Sepsis Event Note (ED) - Focused Exam Vital Signs: Vital Signs Temp Pulse Resp BP Pulse Ox 01/26/20 10:00 96.4 F L 86 24 H 125/61 86 L 01/26/20 09:36 96.4 F L 86 24 H 125/61 86 L - My Orders Last 24 Hours: My Active Orders 01/26/20 09:50 Blood Culture x2 Reflex Set [OM.PC] Urgent 01/26/20 10:20 CULTURE BLOOD [BC] Urgent 01/26/20 10:33 CULTURE BLOOD [BC] Urgent - Assessment/Plan Last 24 Hours: My Active Orders 01/26/20 09:50 Blood Culture x2 Reflex Set [OM.PC] Urgent 01/26/20 10:20 CULTURE BLOOD [BC] Urgent 01/26/20 10:33 CULTURE BLOOD [BC] Urgent
[2020-01-26] MEDS ORDERED: Albuterol/Ipratropium 3.0-0.5 MG/3 ML Neb Soln NEB ONE (10:04)
[2020-01-26] MEDS ORDERED: Furosemide 40 MG/4 ML VIAL IVPUSH ONE ×2 (11:50→21:00)
--- NOTE | 2020-01-26 12:21 | CR ---
CHEST: Portable 01/26/2020 at 10:03 AM CLINICAL HISTORY:Leg inflammation and pain COMPARISON:August 2019 FINDINGS: Heart is enlarged. Pulmonary vascularity is cephalized. There is diffuse interstitial prominence. Some of this is chronic but superimposed edema is suggested. There is some patchy atelectasis in the right lung base. IMPRESSION: Cardiac megaly with vascular congestion and interstitial prominence suggests CHF superimposed over chronic lung changes
--- NOTE | 2020-01-26 13:35 | PCM.HP.2 ---
H&P History of Present Illness - General Date of Service: 01/26/20 Admit Problem/Dx: Admission Diagnosis/Problem Admission Diagnosis/Problem Edema Source of Information: Patient, Old Records, Provider, RN Notes Reviewed History Limitations: Reports: No Limitations - History of Present Illness Initial Comments - Free Text/Narative: Mr. Hoskins is a 64-year-old gentleman who was admitted through the emergency department for management of peripheral and pulmonary edema, with shortness of breath and progressive weakness. Mr. Hoskins has had a longstanding history of COPD and obesity related hypoventilation causing chronic hypoxic and hypercapnic respiratory failure. He has been hospitalized previously at this facility requiring intubation and mechanical ventilation. He has been at home now over the past several weeks and during that period of time has developed progressive peripheral edema, increased shortness of breath, and weakness. On evaluation in the emergency department he is noted to have marked peripheral edema with associated venous stasis. At the present time does not appear to be infected, white blood cell count was only modestly elevated, modest elevation in CRP, and a normal procalcitonin. Chest x-ray shows pulmonary vascular congestion and pulmonary edema. All signs have been stable while he has been in the emergency department and he has remained afebrile. - Related Data Allergies/Adverse Reactions: Allergies Allergy/AdvReac Type Severity Reaction Status Date / Time metformin Allergy Hives Verified 01/26/20 09:35 Home Medications: Home Meds Aspirin [Halfprin] 81 mg PO DAILY 09/18/18 [History] Budesonide/Formoterol [Symbicort 160-4.5 MCG] 2 puff INH BID 09/18/18 [History] Glucosamn/Condroitn/C/Mn/Fenton [Cvs Glucosamine Chondroit Cplt] 1 tab PO DAILY 09/18/18 [History] Omeprazole Magnesium [Prilosec Otc] 20 mg PO BID 09/18/18 [History] Vitamin E 1,000 unit PO DAILY 09/18/18 [History] atorvaSTATin [Lipitor] 40 mg PO DAILY 09/18/18 [History] Acetaminophen [Tylenol] 650 mg PO Q4H PRN #100 tablet 10/01/18 [Rx] Albuterol [Proventil HFA] 2 puff INH Q4H PRN #1 inhaler 10/01/18 [Rx] Albuterol/Ipratropium [DuoNeb 3.0-0.5 MG/3 ML] 3 ml INH TID #90 neb 10/01/18 [Rx ] Furosemide 40 mg PO DAILY 10/16/18 [History] Ferrous Fumarate [Ferrocite] 324 mg PO BID 08/28/19 [History] Levothyroxine 0.88 mcg PO ACBREAKFAST 08/28/19 [History] Meloxicam 15 mg PO DAILY 08/28/19 [History] Tamsulosin [Flomax] 0.8 mg PO DAILY 08/28/19 [History] Tiotropium [Spiriva HandiHaler] 18 mcg INH DAILY 08/28/19 [History] methocarbamoL [Methocarbamol] 1,000 mg PO Q8H 08/28/19 [History] oxyCODONE HCl/Acetaminophen [Oxycodone-Acetaminophen 5-325] 5 mg PO Q6H PRN 06/07 [History] Bumetanide [Bumex] 5 mg PO DAILY 01/26/20 [History] Finasteride [Proscar] 5 mg PO DAILY 01/26/20 [History] Potassium Chloride [Klor-Con] 60 meq PO DAILY 01/26/20 [History] Spironolactone [Aldactone] 12.5 mg PO DAILY 01/26/20 [History] Past Medical History Cardiovascular History: Reports: Hypertension Respiratory History: Reports: Bronchitis, Recurrent, Intubation, Previous Gastrointestinal History: Reports: GERD Musculoskeletal History: Reports: Arthritis Endocrine/Metabolic History: Reports: Obesity/BMI 30+ - Infectious Disease History Infectious Disease History: Reports: Chicken Pox Social & Family History - Family History Family Medical History: Unobtainable - Tobacco Use Smoking Status *Q: Current Every Day Smoker Years of Tobacco use: 50 Packs/Tins Daily: 0.2 - Caffeine Use Caffeine Use: Reports: None Caffeine Use Comment: patient unresponsive H&P Review of Systems - Review of Systems: Review Of Systems: See Below General: Reports: Malaise, Weakness, Fatigue. Denies: Fever, Chills HEENT: Reports: No Symptoms Pulmonary: Reports: Shortness of Breath, Wheezing. Denies: Pleuritic Chest Pain , Cough, Sputum, Hemoptysis Cardiovascular: Reports: Dyspnea on Exertion, Edema. Denies: Chest Pain, Palpitations, Orthopnea, PND, Lightheadedness Gastrointestinal: Reports: No Symptoms Genitourinary: Reports: No Symptoms Musculoskeletal: Reports: No Symptoms Skin: Reports: No Symptoms Psychiatric: Reports: No Symptoms Neurological: Reports: No Symptoms Hematologic/Lymphatic: Reports: No Symptoms Immunologic: Reports: No Symptoms Exam - Exam Exam: See Below - Vital Signs Vital Signs: Last Vital Signs Temp 96.4 F L 01/26/20 10:00 Pulse 86 01/26/20 10:00 Resp 24 H 01/26/20 10:00 BP 125/61 01/26/20 10:00 Pulse Ox 86 L 01/26/20 10:00 Weight: 400 lb - Exam Quality Assessment: Supplemental Oxygen, DVT Prophylaxis General: Alert, Oriented, Cooperative, Moderate Distress HEENT: Conjunctiva Clear, Hearing Intact, Mucosa Moist & [place], Normal Nasal Septum, Posterior Pharynx Clear, Pupils Equal Neck: Supple, Trachea Midline, +2 Carotid Pulse wo Bruit Lungs: Decreased Breath Sounds, Wheezing. No: Crackles, Rales, Rhonchi, Rub Cardiovascular: Regular Rate, Regular Rhythm, Normal S1, Normal S2. No: Systolic Murmur, Diastolic Murmur GI/Abdominal Exam: Soft, Non-Tender, No Organomegaly, No Distention Extremities: Non-Tender, Pedal Edema Skin: Warm, Dry, Intact Neurological: Cranial Nerves Intact, Strength Equal Bilateral, Normal Speech, Normal Tone, Sensation Intact. No: Focal Deficit Neuro Extensive - Mental Status: Alert, Oriented x3, Normal Mood/Affect, Normal Cognition, Memory Intact - Patient Data Lab Results Last 24 hrs: Laboratory Results - last 24 hr 01/26/20 01/26/20 01/26/20 Range/Units 10:28 10:28 10:28 WBC 12.0 H (4.5-11.0) K/uL RBC 4.58 (4.30-5.90) M/uL Hgb 11.0 L (12.0-15.0) g/dL Hct 37.7 L (40.0-54.0) % MCV 82 (80-98) fL MCH 24 L (27-31) pg MCHC 29 L (32-36) % Plt Count 292 (150-400) K/uL Add Manual Diff Yes Neutrophils % (Manual) 76 H (36-66) % Band Neutrophils % 3 L (5-11) % Lymphocytes % (Manual) 13 L (24-44) % Monocytes % (Manual) 6 (2-6) % Eosinophils % (Manual) 2 (2-4) % Sodium 139 L (140-148) mmol/L Potassium 4.2 (3.6-5.2) mmol/L Chloride 98 L (100-108) mmol/L Carbon Dioxide 40 H (21-32) mmol/L Anion Gap 5.2 (5.0-14.0) mmol/L BUN 29 H (7-18) mg/dL Creatinine 1.2 (0.8-1.3) mg/dL Est Cr Clr Drug Dosing 69.16 mL/min Estimated GFR (MDRD) > 60 (>60) Glucose 124 H (74-106) mg/dL Lactic Acid 0.7 (0.4-2.0) mmol/L Calcium 8.5 (8.5-10.1) mg/dL Total Bilirubin 0.3 (0.2-1.0) mg/dL AST 13 L (15-37) U/L ALT 21 (12-78) U/L Alkaline Phosphatase 120 H (46-116) U/L C-Reactive Protein (0.0-0.3) mg/dL Total Protein 7.8 (6.4-8.2) g/dL Albumin 2.8 L (3.4-5.0) g/dL Globulin 5.0 H (2.3-3.5) g/dL Albumin/Globulin Ratio 0.6 L (1.2-2.2) Procalcitonin ng/mL 01/26/20 01/26/20 Range/Units 10:28 10:28 WBC (4.5-11.0) K/uL RBC (4.30-5.90) M/uL Hgb (12.0-15.0) g/dL Hct (40.0-54.0) % MCV (80-98) fL MCH (27-31) pg MCHC (32-36) % Plt Count (150-400) K/uL Add Manual Diff Neutrophils % (Manual) (36-66) % Band Neutrophils % (5-11) % Lymphocytes % (Manual) (24-44) % Monocytes % (Manual) (2-6) % Eosinophils % (Manual) (2-4) % Sodium (140-148) mmol/L Potassium (3.6-5.2) mmol/L Chloride (100-108) mmol/L Carbon Dioxide (21-32) mmol/L Anion Gap (5.0-14.0) mmol/L BUN (7-18) mg/dL Creatinine (0.8-1.3) mg/dL Est Cr Clr Drug Dosing mL/min Estimated GFR (MDRD) (>60) Glucose (74-106) mg/dL Lactic Acid (0.4-2.0) mmol/L Calcium (8.5-10.1) mg/dL Total Bilirubin (0.2-1.0) mg/dL AST (15-37) U/L ALT (12-78) U/L Alkaline Phosphatase (46-116) U/L C-Reactive Protein 0.87 H (0.0-0.3) mg/dL Total Protein (6.4-8.2) g/dL Albumin (3.4-5.0) g/dL Globulin (2.3-3.5) g/dL Albumin/Globulin Ratio (1.2-2.2) Procalcitonin < 0.05 ng/mL Result Diagrams: 01/26/20 10:28 01/26/20 10:28 Sepsis Event Note - Evaluation Sepsis Screening Result: Possible Sepsis Risk - Focused Exam Vital Signs: Vital Signs Temp Pulse Resp BP Pulse Ox 01/26/20 10:00 96.4 F L 86 24 H 125/61 86 L 01/26/20 09:36 96.4 F L 86 24 H 125/61 86 L Date Exam was Performed: 01/26/20 Time Exam was Performed: 16:27 *Q Meaningful Use (ADM) - VTE Risk Assess *Q Each Risk Factor Represents 1 Point: Swollen Legs, Current, Obesity ( BMI > 25 kg/m2), Congestive heart failure (CHF), Abnormal Pulmonary Function (COPD) Total Score 1 Point Risk Factors: 4 Each Risk Factor Represents 2 Points: Age 60 - 74 Years Total Score 2 Point Risk Factors: 2 Each Risk Factor Represents 3 Points: None Total Score 3 Point Risk Factors: 0 Each Risk Factor Represents 5 Points: None Total Score 5 Point Risk Factors: 0 Venous Thromboembolism Risk Factor Score *Q: 6 Problem List Initiated/Reviewed/Updated: Yes Orders Last 24hrs: Active Orders 24 hr Category Date Time Status Patient Status Manage Transfer [TRANSFER] Routine ADT 01/26/20 11:42 Active RT Aerosol Therapy [RC] ASDIRECTED Care 01/26/20 10:04 Active CULTURE BLOOD [BC] Urgent Lab 01/26/20 10:20 Received CULTURE BLOOD [BC] Urgent Lab 01/26/20 10:33 Received Sodium Chloride 0.9% [Saline Flush] Med 01/26/20 09:51 Active 10 ml FLUSH ASDIRECTED PRN Blood Culture x2 Reflex Set [OM.PC] Urgent Oth 01/26/20 09:50 Ordered Saline Lock Insert [OM.PC] Routine Oth 01/26/20 09:51 Ordered Resuscitation Status Routine Resus Stat 01/26/20 11:45 Ordered Medication Orders Sodium Chloride (Saline Flush) 10 ml FLUSH ASDIRECTED PRN PRN Reason: Keep Vein Open Last Admin: 01/26/20 10:41 Dose: 10 ml Assessment/Plan Comment:: ASSESSMENT AND PLAN DIASTOLIC CONGESTIVE HEART FAILURE AND COR PULMONALE-recent history of progressive weakness, increased shortness of breath, and marked increase in peripheral edema. Weakness has progressed to the point where he is no longer able to stand or ambulate. Lower extremities are erythematous but at the present time I believe that this is secondary to venous stasis. -IV furosemide twice daily -2 g sodium diet -Echocardiogram to assess left ventricular systolic function and diastolic function as well as right heart function and right-sided pressures -Monitor closely for any evidence of infection -Physical therapy consult CHRONIC HYPOXIC AND HYPERCAPNIC RESPIRATORY FAILURE-no evidence of acute exacerbation or underlying infection. Refuses use of BiPAP while hospitalized and has previously refused home ventilator therapy. -Supplemental oxygen as needed -Continue outpatient medications MORBID OBESITY MAINTENANCE ISSUES -DVT prophylaxis; Lovenox 40 mg subcu daily -GI prophylaxis; continue outpatient PPI therapy -Sauceda catheter; not indicated -Nutrition; 2 g sodium diet -Nicotine dependence; nicotine patch and nicotine gum CODE STATUS-FULL CODE ADMISSION STATUS-patient will be admitted to inpatient status, expect at least a 2 night hospital stay for evaluation and management of problems as outlined above. At the time of this admission I do not reasonably expected evaluation and management of this problem will require more than a 96 hour hospital stay. DISPOSITION-anticipate discharge to home after the hospital stay. PRIMARY CARE PROVIDER-Dr. Ro - Mortality Measure Prognosis:: Poor
[2020-01-26] MEDS ORDERED: Polyethylene Glycol 3350 Powder 17 GM Packet PO PRN (13:52)
[2020-01-26] MEDS ORDERED: Ondansetron 4 MG/2 ML SDV IV PRN (13:52)
[2020-01-26] MEDS ORDERED: Albuterol 8 GM Inhaler INH PRN (13:52)
[2020-01-26] MEDS: Albuterol/Ipratropium 3.0-0.5 MG/3 ML Neb Soln INH SCH ×2 (14:16→21:28)
[2020-01-26] MEDS ORDERED: Nicotine Polacrilex 2 MG Gum CHEW PRN (16:28)
[2020-01-26] MEDS ORDERED: Pantoprazole 40 MG Tab.CR PO SCH (16:30)
[2020-01-26] MEDS: Enoxaparin 40 MG/0.4 ML Syringe SUBCUT SCH (17:17)
[2020-01-26] MEDS: Nicotine 21 MG/24 Hr Patch TRDERM SCH (17:17)
[2020-01-26] MEDS: Acetaminophen/oxyCODONE 325-5 MG Tab PO PRN (19:30)
[2020-01-26] MEDS: Fluticasone-Salmeterol 232-14 MCG Powder Inhalent INH SCH (21:33)
[2020-01-26] MEDS ORDERED: Morphine 2 MG/ML Syringe IVPUSH PRN (22:08)
--- NOTE | 2020-01-27 02:04 | PCM.SN.2 ---
- Free Text/Narrative Note: time 01:15 call from 2 [facility]. concerns of Mr. Hoskins was not wearing his oxygen now has oxygen sat low 80% with occasional 79%, O2 was increased 10 liter by mask and oxygen sat were 95%, then Mr. Hoskins was more lethargic, oxygen decreased to 2 liter per nasal cannula a: COPD p: ABG were unable to obtain, venous blood gases. reviewed with Hospitalist. Mr. Hoskins has a baseline of mid to high 80's oxygen saturation due to COPD and other medical conditions. will continue present plan of care to keep oxygen in mid to upper 80's..
[2020-01-27] MEDS: Acetaminophen/oxyCODONE 325-5 MG Tab PO PRN (02:43)
[2020-01-27] MEDS: Albuterol 0.083% 2.5 MG/3 ML Neb Soln NEB PRN (04:02)
--- NOTE | 2020-01-27 05:10 | CRLCR ---
HISTORY: Shortness of breath COMPARISON: From yesterday FINDINGS: A portable erect AP view of the chest was obtained at 0411 hours. There is no change in mild congestive failure with mild vascular engorgement and mild interstitial pulmonary edema. There is improvement in mild linear atelectasis in the lateral right lung base, now mild. There is improvement in linear density in the left lateral lung base, now minimal, consistent with clearing atelectasis. The heart remains mildly enlarged. The mediastinum is otherwise normal in appearance. The osseous structures are normal in appearance for the patient`s age. IMPRESSION: Stable mild congestive failure. Improved linear bibasilar atelectasis, now mild on the right and minimal on the left. Stable mild cardiomegaly. Dictated by George Lopez MD @ Jan 27 2020 5:04AM Signed by Dr. George Lopez @ Jan 27 2020 5:07AM
[2020-01-27] MEDS: Heparin Sodium 5,000 Units/ML Vial ONE ×2 (06:20→07:12)
[2020-01-27] MEDS: propofoL 100 ML ONE ×2 (06:20→07:12)
[2020-01-27] MEDS ORDERED: Vancomycin 1 GM SDV IV SCH (07:00)
[2020-01-27] MEDS: Albuterol/Ipratropium 3.0-0.5 MG/3 ML Neb Soln INH SCH ×3 (07:08→21:48)
[2020-01-27] MEDS: Fluticasone-Salmeterol 232-14 MCG Powder Inhalent INH SCH ×2 (07:09→21:48)
--- NOTE | 2020-01-27 07:17 | PCM.PN ---
- General Info Date of Service: 01/27/20 Subjective Update: Mr. Hoskins unfortunately developed increased respiratory compromise during the night with progressive hypoxia and CO2 retention. Blood gases were obtained earlier in the morning and did show mild respiratory acidosis. He worsened from that point over the next few hours and became unresponsive. Follow-up blood gases showed severe hypoxia and severe hypercapnia with a PCO2 of 170. I did discuss with him CODE STATUS at the time of admission and he confirmed that he wanted to be full code and would want to be on the ventilator if he developed respiratory compromise. Chest x-ray shows no obvious infiltrates, with mild evidence of congestive heart failure. I suspect that this is an exacerbation of his severe COPD and obesity related hypoventilation. There may be a component of underlying respiratory tract infection. He did diurese 2 L of fluid since admission yesterday. He is currently intubated and unable to provide a meaningful history concerning symptoms or review of systems. - Patient Data Vitals - Most Recent: Last Vital Signs Temp 96.4 F L 01/27/20 03:45 Pulse 76 01/27/20 03:45 Resp 32 H 01/27/20 03:45 BP 97/52 L 01/27/20 03:45 Pulse Ox 89 L 01/27/20 05:07 Weight - Most Recent: 400 lb I&O - Last 24 Hours: Intake & Output 01/26/20 01/27/20 01/27/20 22:59 06:59 14:59 Intake Total 580 Output Total 875 550 Balance -295 -550 Lab Results Last 24 Hours: Laboratory Results - last 24 hr 01/26/20 01/26/20 01/26/20 Range/Units 10:28 10:28 10:28 WBC 12.0 H (4.5-11.0) K/uL RBC 4.58 (4.30-5.90) M/uL Hgb 11.0 L (12.0-15.0) g/dL Hct 37.7 L (40.0-54.0) % MCV 82 (80-98) fL MCH 24 L (27-31) pg MCHC 29 L (32-36) % Plt Count 292 (150-400) K/uL Add Manual Diff Yes Neutrophils % (Manual) 76 H (36-66) % Band Neutrophils % 3 L (5-11) % Lymphocytes % (Manual) 13 L (24-44) % Monocytes % (Manual) 6 (2-6) % Eosinophils % (Manual) 2 (2-4) % Puncture Site ABG pH (7.350-7.450) ABG pCO2 (35.0-42.0) mmHg ABG pO2 (75.0-100.0) mmHg ABG HCO3 (22.0-26.0) mmol/L ABG Total CO2 (23.0-27.0) mmol/L ABG O2 Saturation (95.0-98.0) % ABG O2 Content (15.0-23.0) %vol ABG Base Excess mm/L ABG Hemoglobin (13.5-18.0) g/dL ABG Oxyhemoglobin % ABG Carboxyhemoglobin (0.0-1.6) % ABG Methemoglobin % Ruddy Test VBG pH (7.350-7.450) VBG pCO2 mm/Hg VBG pO2 mm/Hg VBG HCO3 mmol/L VBG Total CO2 mmol/L VBG O2 Saturation VBG O2 Content %vol VBG Base Excess mm/L O2 Delivery Device Sodium 139 L (140-148) mmol/L Potassium 4.2 (3.6-5.2) mmol/L Chloride 98 L (100-108) mmol/L Carbon Dioxide 40 H (21-32) mmol/L Anion Gap 5.2 (5.0-14.0) mmol/L BUN 29 H (7-18) mg/dL Creatinine 1.2 (0.8-1.3) mg/dL Est Cr Clr Drug Dosing 69.16 mL/min Estimated GFR (MDRD) > 60 (>60) Glucose 124 H (74-106) mg/dL Lactic Acid 0.7 (0.4-2.0) mmol/L Calcium 8.5 (8.5-10.1) mg/dL Magnesium (1.8-2.4) mg/dL Total Bilirubin 0.3 (0.2-1.0) mg/dL AST 13 L (15-37) U/L ALT 21 (12-78) U/L Alkaline Phosphatase 120 H (46-116) U/L C-Reactive Protein (0.0-0.3) mg/dL Total Protein 7.8 (6.4-8.2) g/dL Albumin 2.8 L (3.4-5.0) g/dL Globulin 5.0 H (2.3-3.5) g/dL Albumin/Globulin Ratio 0.6 L (1.2-2.2) Procalcitonin ng/mL 01/26/20 01/26/20 01/27/20 Range/Units 10:28 10:28 01:22 WBC (4.5-11.0) K/uL RBC (4.30-5.90) M/uL Hgb (12.0-15.0) g/dL Hct (40.0-54.0) % MCV (80-98) fL MCH (27-31) pg MCHC (32-36) % Plt Count (150-400) K/uL Add Manual Diff Neutrophils % (Manual) (36-66) % Band Neutrophils % (5-11) % Lymphocytes % (Manual) (24-44) % Monocytes % (Manual) (2-6) % Eosinophils % (Manual) (2-4) % Puncture Site ABG pH (7.350-7.450) ABG pCO2 (35.0-42.0) mmHg ABG pO2 (75.0-100.0) mmHg ABG HCO3 (22.0-26.0) mmol/L ABG Total CO2 (23.0-27.0) mmol/L ABG O2 Saturation (95.0-98.0) % ABG O2 Content (15.0-23.0) %vol ABG Base Excess mm/L ABG Hemoglobin 11.0 L (13.5-18.0) g/dL ABG Oxyhemoglobin 85.6 % ABG Carboxyhemoglobin 5.1 H (0.0-1.6) % ABG Methemoglobin 1.0 % Ruddy Test VBG pH 7.298 L (7.350-7.450) VBG pCO2 85.9 mm/Hg VBG pO2 68.1 mm/Hg VBG HCO3 40.8 mmol/L VBG Total CO2 38.3 mmol/L VBG O2 Saturation 91.2 VBG O2 Content 13.3 %vol VBG Base Excess 11.8 mm/L O2 Delivery Device Non rebr mask Sodium (140-148) mmol/L Potassium (3.6-5.2) mmol/L Chloride (100-108) mmol/L Carbon Dioxide (21-32) mmol/L Anion Gap (5.0-14.0) mmol/L BUN (7-18) mg/dL Creatinine (0.8-1.3) mg/dL Est Cr Clr Drug Dosing mL/min Estimated GFR (MDRD) (>60) Glucose (74-106) mg/dL Lactic Acid (0.4-2.0) mmol/L Calcium (8.5-10.1) mg/dL Magnesium (1.8-2.4) mg/dL Total Bilirubin (0.2-1.0) mg/dL AST (15-37) U/L ALT (12-78) U/L Alkaline Phosphatase (46-116) U/L C-Reactive Protein 0.87 H (0.0-0.3) mg/dL Total Protein (6.4-8.2) g/dL Albumin (3.4-5.0) g/dL Globulin (2.3-3.5) g/dL Albumin/Globulin Ratio (1.2-2.2) Procalcitonin < 0.05 ng/mL 01/27/20 01/27/20 01/27/20 Range/Units 04:00 04:00 04:00 WBC 11.9 H (4.5-11.0) K/uL RBC 4.62 (4.30-5.90) M/uL Hgb 10.8 L (12.0-15.0) g/dL Hct 38.5 L (40.0-54.0) % MCV 83 (80-98) fL MCH 23 L (27-31) pg MCHC 28 L (32-36) % Plt Count 275 (150-400) K/uL Add Manual Diff Yes Neutrophils % (Manual) 73 H (36-66) % Band Neutrophils % 4 L (5-11) % Lymphocytes % (Manual) 14 L (24-44) % Monocytes % (Manual) 8 H (2-6) % Eosinophils % (Manual) 1 L (2-4) % Puncture Site ABG pH (7.350-7.450) ABG pCO2 (35.0-42.0) mmHg ABG pO2 (75.0-100.0) mmHg ABG HCO3 (22.0-26.0) mmol/L ABG Total CO2 (23.0-27.0) mmol/L ABG O2 Saturation (95.0-98.0) % ABG O2 Content (15.0-23.0) %vol ABG Base Excess mm/L ABG Hemoglobin (13.5-18.0) g/dL ABG Oxyhemoglobin % ABG Carboxyhemoglobin (0.0-1.6) % ABG Methemoglobin % Ruddy Test VBG pH (7.350-7.450) VBG pCO2 mm/Hg VBG pO2 mm/Hg VBG HCO3 mmol/L VBG Total CO2 mmol/L VBG O2 Saturation VBG O2 Content %vol VBG Base Excess mm/L O2 Delivery Device Sodium 143 (140-148) mmol/L Potassium 3.8 (3.6-5.2) mmol/L Chloride 101 (100-108) mmol/L Carbon Dioxide 41 H (21-32) mmol/L Anion Gap 4.8 L (5.0-14.0) mmol/L BUN 27 H (7-18) mg/dL Creatinine 1.1 (0.8-1.3) mg/dL Est Cr Clr Drug Dosing 75.44 mL/min Estimated GFR (MDRD) > 60 (>60) Glucose 129 H (74-106) mg/dL Lactic Acid (0.4-2.0) mmol/L Calcium 8.0 L (8.5-10.1) mg/dL Magnesium 2.2 (1.8-2.4) mg/dL Total Bilirubin (0.2-1.0) mg/dL AST (15-37) U/L ALT (12-78) U/L Alkaline Phosphatase (46-116) U/L C-Reactive Protein (0.0-0.3) mg/dL Total Protein (6.4-8.2) g/dL Albumin (3.4-5.0) g/dL Globulin (2.3-3.5) g/dL Albumin/Globulin Ratio (1.2-2.2) Procalcitonin < 0.05 ng/mL 01/27/20 Range/Units 05:35 WBC (4.5-11.0) K/uL RBC (4.30-5.90) M/uL Hgb (12.0-15.0) g/dL Hct (40.0-54.0) % MCV (80-98) fL MCH (27-31) pg MCHC (32-36) % Plt Count (150-400) K/uL Add Manual Diff Neutrophils % (Manual) (36-66) % Band Neutrophils % (5-11) % Lymphocytes % (Manual) (24-44) % Monocytes % (Manual) (2-6) % Eosinophils % (Manual) (2-4) % Puncture Site Lt radial ABG pH 7.021 L* (7.350-7.450) ABG pCO2 179.0 H* (35.0-42.0) mmHg ABG pO2 56.5 L (75.0-100.0) mmHg ABG HCO3 44.1 H (22.0-26.0) mmol/L ABG Total CO2 44.8 H (23.0-27.0) mmol/L ABG O2 Saturation 71.8 L (95.0-98.0) % ABG O2 Content 11.5 L (15.0-23.0) %vol ABG Base Excess 7.1 mm/L ABG Hemoglobin 11.9 L (13.5-18.0) g/dL ABG Oxyhemoglobin 68.4 % ABG Carboxyhemoglobin 3.7 H (0.0-1.6) % ABG Methemoglobin 1.1 % Ruddy Test Passed VBG pH (7.350-7.450) VBG pCO2 mm/Hg VBG pO2 mm/Hg VBG HCO3 mmol/L VBG Total CO2 mmol/L VBG O2 Saturation VBG O2 Content %vol VBG Base Excess mm/L O2 Delivery Device Non rebr mask Sodium (140-148) mmol/L Potassium (3.6-5.2) mmol/L Chloride (100-108) mmol/L Carbon Dioxide (21-32) mmol/L Anion Gap (5.0-14.0) mmol/L BUN (7-18) mg/dL Creatinine (0.8-1.3) mg/dL Est Cr Clr Drug Dosing mL/min Estimated GFR (MDRD) (>60) Glucose (74-106) mg/dL Lactic Acid (0.4-2.0) mmol/L Calcium (8.5-10.1) mg/dL Magnesium (1.8-2.4) mg/dL Total Bilirubin (0.2-1.0) mg/dL AST (15-37) U/L ALT (12-78) U/L Alkaline Phosphatase (46-116) U/L C-Reactive Protein (0.0-0.3) mg/dL Total Protein (6.4-8.2) g/dL Albumin (3.4-5.0) g/dL Globulin (2.3-3.5) g/dL Albumin/Globulin Ratio (1.2-2.2) Procalcitonin ng/mL Med Orders - Current: Current Medications Acetaminophen (Tylenol) 650 mg PO Q4H PRN PRN Reason: Pain/Fever Albuterol (Ventolin Hfa) 0 gm INH Q4H PRN PRN Reason: Shortness of Breath Albuterol (Proventil Neb Soln) 2.5 mg NEB Q2H PRN PRN Reason: Shortness of Breath Last Admin: 01/27/20 04:02 Dose: 2.5 mg Albuterol/Ipratropium (Duoneb 3.0-0.5 Mg/3 Ml) 3 ml INH TIDRT [facility] Last Admin: 01/27/20 07:08 Dose: 3 ml Enoxaparin Sodium (Lovenox) 40 mg SUBCUT Q24H [facility] Last Admin: 01/26/20 17:17 Dose: 40 mg Furosemide (Lasix) 40 mg IVPUSH Q12H [facility] Glycopyrrolate (Seebri Neohaler) 15.6 mcg IH BIDRT [facility] Piperacillin Sod/Tazobactam (Sod 3.375 gm/ Sodium Chloride) 50 mls @ 100 mls/ hr IV Q6H [facility] Levothyroxine Sodium (Synthroid) 88 mcg PO DAILY@0730 [facility] Methylprednisolone Sodium Succinate (Solu-Medrol) 40 mg IVPUSH Q6H [facility] Nicotine (Habitrol) 21 mg TRDERM DAILY [facility] Last Admin: 01/26/20 17:17 Dose: 21 mg Nicotine Polacrilex (Nicorelief) 2 mg CHEW Q1H PRN PRN Reason: Other Ondansetron HCl (Zofran) 4 mg IV Q4H PRN PRN Reason: Nausea/Vomiting Oxycodone/Acetaminophen (Percocet 325-5 Mg) 1 tab PO Q6H PRN PRN Reason: Pain (severe 7-10) Last Admin: 01/27/20 02:43 Dose: 1 tab Pantoprazole Sodium (Protonix Iv) 40 mg IVPUSH DAILY [facility] Polyethylene Glycol (Miralax) 17 gm PO DAILY PRN PRN Reason: Constipation Fluticasone/Salmeterol (Fluticasone-Salmeterol 232-14 Mcg Powder Inha) 1 puff INH BIDRT [facility] Last Admin: 01/27/20 07:09 Dose: Not Given Sodium Chloride (Saline Flush) 10 ml FLUSH ASDIRECTED PRN PRN Reason: Keep Vein Open Vancomycin HCl (Vancomycin) 1 gm IV .PHARMACY TO DOSE [facility] Discontinued Medications Albuterol/Ipratropium (Duoneb 3.0-0.5 Mg/3 Ml) 3 ml NEB ONETIME ONE Stop: 01/26/20 10:05 Last Admin: 01/26/20 10:38 Dose: 3 ml Aspirin (Halfprin) 81 mg PO DAILY [facility] Atorvastatin Calcium (Lipitor) 40 mg PO DAILY [facility] Finasteride (Proscar) 5 mg PO DAILY [facility] Furosemide (Lasix) 40 mg IVPUSH NOW ONE Stop: 01/26/20 11:51 Last Admin: 01/26/20 12:30 Dose: 40 mg Furosemide (Lasix) 40 mg IVPUSH NOW ONE Stop: 01/26/20 21:01 Last Admin: 01/26/20 21:19 Dose: 40 mg Heparin Sodium (Porcine) (Heparin Sodium) Confirm Administered Dose 5,000 units .ROUTE .STK-MED ONE Stop: 01/27/20 06:10 Propofol (Diprivan 100 Ml) Confirm Administered Dose 100 mls @ as directed .ROUTE .STK-MED ONE Stop: 01/27/20 06:19 Lidocaine HCl (Xylocaine-Mpf 1%) 5 ml INJECT ONETIME ONE Stop: 01/26/20 13:06 Last Admin: 01/26/20 13:33 Dose: 5 ml Morphine Sulfate (Morphine) 1 - 2 mg IVPUSH Q2H PRN PRN Reason: Pain Last Admin: 01/26/20 22:37 Dose: 2 mg Pantoprazole Sodium (Protonix) 40 mg PO BIDAC [facility] Last Admin: 01/26/20 17:17 Dose: 40 mg Potassium Chloride (Klor-Con M20) 60 meq PO DAILY [facility] Sodium Chloride (Saline Flush) 10 ml FLUSH ASDIRECTED PRN PRN Reason: Keep Vein Open Last Admin: 01/26/20 10:41 Dose: 10 ml Spironolactone (Aldactone) 12.5 mg PO DAILY [facility] Tamsulosin HCl (Flomax) 0.8 mg PO DAILY [facility] - Exam Quality Assessment: Supplemental Oxygen (Ventilator), Urine Catheter, DVT Prophylaxis General: Sedated, Lethargic Lungs: Decreased Breath Sounds, Rhonchi, Wheezing. No: Rales, Rub Cardiovascular: Regular Rate, Regular Rhythm, No Murmurs GI/Abdominal Exam: Soft, Non-Tender, No Organomegaly, No Distention Extremities: Non-Tender, Pedal Edema Skin: Warm, Dry Sepsis Event Note - Evaluation Sepsis Screening Result: No Definite Risk - Focused Exam Vital Signs: Vital Signs Temp Pulse Resp BP Pulse Ox Pulse Ox Pulse Ox 01/27/20 05:07 01/27/20 04:52 85 L 01/27/20 04:30 01/27/20 04:11 91 L 01/27/20 03:45 96.4 F L 76 32 H 97/52 L 83 L 01/27/20 03:30 76 L 01/27/20 02:43 89 L 01/27/20 02:15 30 H 84 L 01/27/20 02:12 83 L 01/27/20 02:10 73 L 01/27/20 01:40 96.9 F 85 30 H 118/59 L 92 L 01/26/20 22:11 98.1 F 84 24 H 98/41 L 87 L Pulse Ox 01/27/20 05:07 89 L 01/27/20 04:52 01/27/20 04:30 96 01/27/20 04:11 01/27/20 03:45 01/27/20 03:30 01/27/20 02:43 01/27/20 02:15 01/27/20 02:12 01/27/20 02:10 01/27/20 01:40 01/26/20 22:11 Date Exam was Performed: 01/27/20 Time Exam was Performed: 07:12 - Problem List Review Problem List Initiated/Reviewed/Updated: Yes - My Orders Last 24 Hours: My Active Orders 01/26/20 11:45 Resuscitation Status Routine 01/26/20 13:52 Patient Status [ADT] Routine Ambulate [RC] QID Height and Weight [RC] DAILY Intake and Output [RC] QSHIFT Notify Provider Vital Signs [RC] ASDIRECTED Oxygen Therapy [RC] PRN Up With Assistance [RC] ASDIRECTED Up to Chair [RC] QID VTE/DVT Education [RC] Per Unit Routine Vital Signs [RC] Q4H Acetaminophen [Tylenol] 650 mg PO Q4H PRN Acetaminophen/oxyCODONE [Percocet 325-5 MG] 1 tab PO Q6H PRN Albuterol [Ventolin HFA] 0 gm INH Q4H PRN Ondansetron [Zofran] 4 mg IV Q4H PRN Sodium Chloride 0.9% [Saline Flush] 10 ml FLUSH ASDIRECTED PRN polyethylene glycoL 3350 [MiraLAX] 17 gm PO DAILY PRN Saline Lock Insert [OM.PC] Routine 01/26/20 14:00 Albuterol/Ipratropium [DuoNeb 3.0-0.5 MG/3 ML] 3 ml INH TIDRT 01/26/20 16:00 Enoxaparin [Lovenox] 40 mg SUBCUT Q24H 01/26/20 16:28 Nicotine Polacrilex [Nicorelief] 2 mg CHEW Q1H PRN 01/26/20 16:30 Nicotine [Habitrol] 21 mg TRDERM DAILY 01/26/20 21:00 Fluticasone/Salmeterol [Fluticasone-Salmeterol 232-14 MCG Powder Inha] 1 puff INH BIDRT 01/26/20 Lunch 2 Gram Sodium Diet [DIET] 01/27/20 06:14 Chest 1V Frontal [CR] Stat 01/27/20 06:15 Consult to Physician [CONS] Stat 01/27/20 06:16 Notify Provider Consults [RC] ASDIRECTED 01/27/20 06:47 CULTURE RESPIRATORY + SMEAR [RM] Routine 01/27/20 07:00 Furosemide [Lasix] 40 mg IVPUSH Q12H Glycopyrrolate [Seebri Neohaler] 15.6 mcg IH BIDRT Piperacillin/Tazobactam [Zosyn] 3.375 gm Sodium Chloride 0.9% [Normal Saline] 50 ml IV Q6H Vancomycin 1 gm IV .PHARMACY TO DOSE methylPREDNISolone Sod Succ [Solu-MEDROL] 40 mg IVPUSH Q6H 01/27/20 07:03 CULTURE BLOOD [BC] Stat CULTURE BLOOD [BC] Stat Blood Culture x2 Reflex Set [OM.PC] Urgent 01/27/20 07:08 Chest 1V Frontal [CR] DAILY 01/27/20 07:09 Mechanical Ventilation [RT Ventilator, Adult] [RC] ASDIRECTED 01/27/20 07:11 RASS Sedation Scale [RC] ASDIRECTED Desired Level of Sedation (RASS) [AST] Click to Edit 01/27/20 07:15 Propofol Drip @ 5 MCG/KG/MIN(100ml) propofoL [Diprivan 100 ML] 100 ml IV TITRATE 01/27/20 07:30 ABG [BLOOD GAS ARTERIAL] [BG] Routine Levothyroxine [Synthroid] 88 mcg PO DAILY@0730 01/27/20 08:00 Echo Comp wo Cont [US] Urgent 01/27/20 09:00 Pantoprazole [ProTONIX IV] 40 mg IVPUSH DAILY 01/27/20 17:00 BASIC METABOLIC PANEL,BMP [CHEM] Stat BLOOD GAS ARTERIAL [BG] Stat 01/28/20 05:00 BLOOD GAS ARTERIAL [BG] Timed CBC WITH AUTO DIFF [HEME] Timed COMPREHENSIVE METABOLIC PN,CMP [CHEM] Timed MAGNESIUM [CHEM] Timed 01/28/20 07:08 Chest 1V Frontal [CR] DAILY 01/29/20 07:08 Chest 1V Frontal [CR] DAILY 01/30/20 07:08 Chest 1V Frontal [CR] DAILY 01/31/20 07:08 Chest 1V Frontal [CR] DAILY - Plan Plan:: ASSESSMENT AND PLAN DIASTOLIC CONGESTIVE HEART FAILURE AND COR PULMONALE-recent history of progressive weakness, increased shortness of breath, and marked increase in peripheral edema. Weakness has progressed to the point where he is no longer able to stand or ambulate. Lower extremities are erythematous but at the present time I believe that this is secondary to venous stasis. -IV furosemide twice daily -Echocardiogram to assess left ventricular systolic function and diastolic function as well as right heart function and right-sided pressures -Monitor closely for any evidence of infection -Physical therapy consult ACUTE ON CHRONIC HYPOXIC AND HYPERCAPNIC RESPIRATORY FAILURE-during the night he developed progressive worsening of his respiratory status requiring intubation and mechanical ventilation. Chest x-ray shows no obvious infiltrates , will plan to start him on some antibiotics to see if infiltrate develops on follow-up chest x-rays. No evidence of aspiration during the night. -Mechanical ventilation -Empiric IV antibiotic therapy with vancomycin and Zosyn -Solu-Medrol 40 mg IV every 6 hours -May need to consider tracheostomy for ongoing management of obesity related hypoventilation and obstructive apnea MORBID OBESITY-BMI of 54 MAINTENANCE ISSUES -DVT prophylaxis; Lovenox 40 mg subcu daily -GI prophylaxis; Protonix 40 mg IV daily -Sauceda catheter; will be placed to monitor urine output now that he is intubated and in the ICU -Nutrition; n.p.o. -Nicotine dependence; nicotine patch CODE STATUS-FULL CODE ADMISSION STATUS-patient will be admitted to inpatient status, expect at least a 2 night hospital stay for evaluation and management of problems as outlined above. At the time of this admission I do not reasonably expected evaluation and management of this problem will require more than a 96 hour hospital stay. DISPOSITION-anticipate discharge to home after the hospital stay. PRIMARY CARE PROVIDER-Dr. Ro 90 minutes of critical care time were spent in the direct evaluation and management of this patient in the intensive care unit
[2020-01-27] MEDS: Levothyroxine 88 MCG Tab PO SCH (08:01)
[2020-01-27] MEDS: propofoL 100 ML IV SCH ×4 (08:04→22:04)
--- NOTE | 2020-01-27 08:09 | ANES ---
DATE OF SERVICE: 01/27/2020 Jaron is a 64-year-old male, patient of Lorenzo Lenz in our Intensive Care Unit. I received a call to consult patient for stat intubation. In our intensive care unit, upon arrival I found a 64-year-old male, very largely obese, being assisted in ventilation with a [id number]. Vital signs were within normal limits with oxygen saturations at 92%. I placed a #8.5 endotracheal tube with a Mac 3. Cords were clear. Immediately after endotracheal tube was passed and the cuff was inflated, the patient coughed very large copious amounts of sputum, yellowish white and quite thick. We did suction out the endotracheal tube prior to ventilating patient. Oxygen saturations maintained above 90%. Other vitals were maintained as well. Be advised, I did not use any sedation for this intubation or relaxation. I then proceeded to secure the tube and reported off to the nurse. I then proceeded to locate the left radial artery. I attempted to access by palpation, I was unable to pass catheter. I proceeded to use ultrasound therapy at that point, was able to locate the artery and placed the catheter without difficulty, with good waveform. Catheter was then sutured in site and secured with tape. He tolerated both procedures quite well. Please refer to nursing notes for vital signs and neuro status, which remained unchanged. Throughout the procedure nurses had began propofol infusion for relaxation. Again, tolerated the procedure quite well. Lorenzo Douglas CRNA /[id number]
[2020-01-27] MEDS ORDERED: Sodium Chloride 0.9% 1,000 ML IV SCH ×2 (08:15)
[2020-01-27] MEDS: Heparin Sodium 5,000 UNITS in Sodium Chloride 0.9% 500 ML IV SCH (08:16)
[2020-01-27] MEDS: Furosemide 40 MG/4 ML VIAL IVPUSH SCH ×2 (08:21→18:22)
[2020-01-27] MEDS: Piperacillin/Tazobactam/Dext 3.375 GM in Premix Bag 1 BAG IV SCH ×3 (08:22→19:54)
[2020-01-27] MEDS: methylPREDNISolone Sodium Succinate 40 MG/1 ML SDV IVPUSH SCH ×3 (08:22→19:53)
[2020-01-27] MEDS: Glycopyrrolate 15.6 MCG Cap.W.Dev Kit of 6 IH SCH ×2 (08:49→21:49)
[2020-01-27] MEDS ORDERED: Finasteride 5 MG Tab PO SCH (09:00)
[2020-01-27] MEDS ORDERED: Tamsulosin 0.4 MG Cap.ER PO SCH (09:00)
[2020-01-27] MEDS ORDERED: atorvaSTATin 20 MG Tab PO SCH (09:00)
[2020-01-27] MEDS ORDERED: Aspirin 81 MG Tab.EC PO SCH (09:00)
[2020-01-27] MEDS ORDERED: Potassium Chloride 20 MEQ Tab.ER PO SCH (09:00)
[2020-01-27] MEDS ORDERED: Spironolactone 25 MG Tab PO SCH (09:00)
--- NOTE | 2020-01-27 09:07 | CR ---
CHEST: Portable 01/27/2020 at 6:36 AM CLINICAL HISTORY:Intubation COMPARISON:Earlier same day FINDINGS: There has been endotracheal intubation. Endotracheal tube is partially 5 cm from the mayra. Patient has diffuse bilateral infiltrates. Right lung is partially clipped off image. Impression: Interval endotracheal intubation. ET tube in good position Persistent diffuse bilateral pulmonary infiltrates CHEST: Portable 01/27/2020 at 8:02 AM CLINICAL HISTORY:Endotracheal intubation COMPARISON:Earlier same day FINDINGS: Endotracheal tube remains in the midtrachea. Heart is enlarged. There is diffuse bilateral pulmonary infiltrates similar to prior study. There is opacity at the left lung base which may represent some infiltrate atelectasis and/or effusion. Impression: Endotracheal tube remains in place Rosalba chamorro Diffuse bilateral pulmonary infiltrates Increasing density at the left lung base may represent atelectasis, infiltrate or effusion.
[2020-01-27] MEDS: Pantoprazole 40 MG Vial IVPUSH SCH (09:29)
[2020-01-27] MEDS: Nicotine 21 MG/24 Hr Patch TRDERM SCH (09:30)
[2020-01-27] MEDS: Enoxaparin 40 MG/0.4 ML Syringe SUBCUT SCH (16:39)
[2020-01-27] MEDS ORDERED: propofoL 100 ML ONE (22:00)
[2020-01-28] MEDS: Piperacillin/Tazobactam/Dext 3.375 GM in Premix Bag 1 BAG IV SCH ×4 (01:45→20:02)
[2020-01-28] MEDS: methylPREDNISolone Sodium Succinate 40 MG/1 ML SDV IVPUSH SCH ×4 (01:45→20:01)
[2020-01-28] MEDS: propofoL 100 ML IV SCH ×9 (01:46→23:14)
[2020-01-28] MEDS: Albuterol/Ipratropium 3.0-0.5 MG/3 ML Neb Soln INH SCH ×3 (07:00→22:23)
[2020-01-28] MEDS: Fluticasone-Salmeterol 232-14 MCG Powder Inhalent INH SCH ×2 (07:00→22:39)
[2020-01-28] MEDS: Glycopyrrolate 15.6 MCG Cap.W.Dev Kit of 6 IH SCH ×2 (07:01→22:39)
[2020-01-28] MEDS: Levothyroxine 88 MCG Tab PO SCH (07:55)
[2020-01-28] MEDS: Furosemide 40 MG/4 ML VIAL IVPUSH SCH ×2 (07:58→18:15)
[2020-01-28] MEDS: Pantoprazole 40 MG Vial IVPUSH SCH (08:33)
--- NOTE | 2020-01-28 09:02 | CR ---
CHEST: Portable 01/28/2020 at 3:06 AM CLINICAL HISTORY:Respiratory failure COMPARISON:01/27/2020 FINDINGS: Heart is enlarged. There is persistent density at the left lung base. There is diffuse increase in lung markings and pulmonary vascularity similar to prior study. Endotracheal tube is in the mid trachea. Impression: Increased lung and vascular markings similar to prior study Persistent increased lung markings at the left lung base may represent effusion and/or airspace disease Endotracheal tube is unchanged in position.
[2020-01-28] MEDS: Nicotine 21 MG/24 Hr Patch TRDERM SCH (09:03)
--- NOTE | 2020-01-28 10:15 | PCM.PN ---
- General Info Date of Service: 01/28/20 Subjective Update: Mr. Hoskins remains on the ventilator, level of support has been decreased since yesterday, currently tolerating FiO2 40%. Spontaneous breathing trial was attempted this morning, unfortunately he failed. Diuresis has continued and he has otherwise been hemodynamically stable and afebrile. He is unable to provide meaningful information concerning symptoms or review of systems because of sedation. - Patient Data Vitals - Most Recent: Last Vital Signs Temp 97.5 F 01/28/20 08:00 Pulse 68 01/28/20 09:00 Resp 19 01/28/20 09:00 BP 120/52 L 01/28/20 09:00 Pulse Ox 90 L 01/28/20 09:00 Weight - Most Recent: 416 lb I&O - Last 24 Hours: Intake & Output 01/27/20 01/28/20 01/28/20 22:59 06:59 14:59 Intake Total 470 948 Output Total 1200 925 Balance -730 23 Lab Results Last 24 Hours: Laboratory Results - last 24 hr 01/27/20 01/27/20 01/27/20 Range/Units 11:00 17:00 17:01 WBC (4.5-11.0) K/uL RBC (4.30-5.90) M/uL Hgb (12.0-15.0) g/dL Hct (40.0-54.0) % MCV (80-98) fL MCH (27-31) pg MCHC (32-36) % Plt Count (150-400) K/uL Neut % (Auto) (36-66) % Lymph % (Auto) (24-44) % [place] % (Auto) (2-6) % Eos % (Auto) (2-4) % Baso % (Auto) (0-1) % Puncture Site A-line A-line ABG pH 7.314 L 7.408 (7.350-7.450) ABG pCO2 83.5 H* 65.0 H (35.0-42.0) mmHg ABG pO2 61.9 L 74.6 L (75.0-100.0) mmHg ABG HCO3 41.2 H 40.1 H (22.0-26.0) mmol/L ABG Total CO2 38.5 H 36.9 H (23.0-27.0) mmol/L ABG O2 Saturation 89.9 L 94.9 L (95.0-98.0) % ABG O2 Content 13.5 L 13.9 L (15.0-23.0) %vol ABG Base Excess 12.4 13.3 mm/L ABG Hemoglobin 11.1 L 10.8 L (13.5-18.0) g/dL ABG Oxyhemoglobin 86.1 91.5 % ABG Carboxyhemoglobin 3.1 H 2.5 H (0.0-1.6) % ABG Methemoglobin 1.1 1.1 % Ruddy Test Not performed A-line O2 Delivery Device Ventilator Ventilator Oxygen Flow Rate L Sodium 142 (140-148) mmol/L Potassium 4.4 (3.6-5.2) mmol/L Chloride 101 (100-108) mmol/L Carbon Dioxide 39 H (21-32) mmol/L Anion Gap 6.4 (5.0-14.0) mmol/L BUN 30 H (7-18) mg/dL Creatinine 1.3 (0.8-1.3) mg/dL Est Cr Clr Drug Dosing 67.62 mL/min Estimated GFR (MDRD) 56 L (>60) Glucose 115 H (74-106) mg/dL Calcium 8.1 L (8.5-10.1) mg/dL Magnesium (1.8-2.4) mg/dL Total Bilirubin (0.2-1.0) mg/dL AST (15-37) U/L ALT (12-78) U/L Alkaline Phosphatase (46-116) U/L Total Protein (6.4-8.2) g/dL Albumin (3.4-5.0) g/dL Globulin (2.3-3.5) g/dL Albumin/Globulin Ratio (1.2-2.2) 01/28/20 01/28/20 01/28/20 Range/Units 04:55 04:55 04:55 WBC 10.5 (4.5-11.0) K/uL RBC 4.37 (4.30-5.90) M/uL Hgb 10.5 L (12.0-15.0) g/dL Hct 35.9 L (40.0-54.0) % MCV 82 (80-98) fL MCH 24 L (27-31) pg MCHC 29 L (32-36) % Plt Count 262 (150-400) K/uL Neut % (Auto) 86 H (36-66) % Lymph % (Auto) 9 L (24-44) % [place] % (Auto) 5 (2-6) % Eos % (Auto) 0 L (2-4) % Baso % (Auto) 0 (0-1) % Puncture Site Line ABG pH 7.369 (7.350-7.450) ABG pCO2 71.6 H* (35.0-42.0) mmHg ABG pO2 67.3 L (75.0-100.0) mmHg ABG HCO3 40.3 H (22.0-26.0) mmol/L ABG Total CO2 37.5 H (23.0-27.0) mmol/L ABG O2 Saturation 92.1 L (95.0-98.0) % ABG O2 Content 13.2 L (15.0-23.0) %vol ABG Base Excess 12.9 mm/L ABG Hemoglobin 10.5 L (13.5-18.0) g/dL ABG Oxyhemoglobin 89.1 % ABG Carboxyhemoglobin 2.1 H (0.0-1.6) % ABG Methemoglobin 1.2 % Ruddy Test O2 Delivery Device Ventilator Oxygen Flow Rate L Sodium 142 (140-148) mmol/L Potassium 3.8 (3.6-5.2) mmol/L Chloride 100 (100-108) mmol/L Carbon Dioxide 39 H (21-32) mmol/L Anion Gap 6.8 (5.0-14.0) mmol/L BUN 27 H (7-18) mg/dL Creatinine 1.2 (0.8-1.3) mg/dL Est Cr Clr Drug Dosing 73.26 mL/min Estimated GFR (MDRD) > 60 (>60) Glucose 127 H (74-106) mg/dL Calcium 8.2 L (8.5-10.1) mg/dL Magnesium 2.3 (1.8-2.4) mg/dL Total Bilirubin 0.3 (0.2-1.0) mg/dL AST 12 L (15-37) U/L ALT 19 (12-78) U/L Alkaline Phosphatase 96 (46-116) U/L Total Protein 7.2 (6.4-8.2) g/dL Albumin 2.4 L (3.4-5.0) g/dL Globulin 4.8 H (2.3-3.5) g/dL Albumin/Globulin Ratio 0.5 L (1.2-2.2) Petey Results Last 24 Hours: Microbiology 01/27/20 07:31 Aerobic Blood Culture - Preliminary Blood - Arterial Line - Abg NO GROWTH AFTER 1 DAY Anaerobic Blood Culture - Preliminary NO GROWTH AFTER 1 DAY 01/27/20 07:30 Aerobic Blood Culture - Preliminary Blood - A-Line NO GROWTH AFTER 1 DAY Anaerobic Blood Culture - Preliminary NO GROWTH AFTER 1 DAY 01/27/20 06:47 Gram Stain - Final Endotrachael Aspirate Respiratory Culture - Preliminary 01/26/20 10:33 Aerobic Blood Culture - Preliminary Blood - Arm, Left NO GROWTH AFTER 1 DAY Anaerobic Blood Culture - Preliminary NO GROWTH AFTER 1 DAY 01/26/20 10:20 Aerobic Blood Culture - Preliminary Blood - Arm, Left NO GROWTH AFTER 1 DAY Anaerobic Blood Culture - Preliminary NO GROWTH AFTER 1 DAY Med Orders - Current: Current Medications Acetaminophen (Tylenol) 650 mg PO Q4H PRN PRN Reason: Pain/Fever Albuterol (Ventolin Hfa) 0 gm INH Q4H PRN PRN Reason: Shortness of Breath Albuterol (Proventil Neb Soln) 2.5 mg NEB Q2H PRN PRN Reason: Shortness of Breath Last Admin: 01/27/20 04:02 Dose: 2.5 mg Albuterol/Ipratropium (Duoneb 3.0-0.5 Mg/3 Ml) 3 ml INH TIDRT [facility] Last Admin: 01/28/20 07:00 Dose: 3 ml Enoxaparin Sodium (Lovenox) 40 mg SUBCUT Q24H [facility] Last Admin: 01/27/20 16:39 Dose: 40 mg Furosemide (Lasix) 40 mg IVPUSH Q12H [facility] Last Admin: 01/28/20 07:58 Dose: 40 mg Glycopyrrolate (Seebri Neohaler) 15.6 mcg IH BIDRT [facility] Last Admin: 01/28/20 07:01 Dose: Not Given Piperacillin/Tazobactam/ (Dextrose 3.375 gm/ Premix) 50 mls @ 100 mls/hr IV Q6H [facility] Last Admin: 01/28/20 08:10 Dose: 100 mls/hr Propofol (Diprivan 100 Ml) 100 mls @ 5.443 mls/hr IV TITRATE [facility]; Protocol Last Admin: 01/28/20 08:39 Dose: 35 mcg/kg/min, 38.102 mls/hr Vancomycin HCl 2 gm/ Sodium (Chloride) 250 mls @ 166 mls/hr IV Q12H [facility] Last Admin: 01/28/20 09:00 Dose: 166 mls/hr Heparin Sodium (Porcine) 5,000 (units/ Sodium Chloride) 501 mls @ 1 mls/hr IV ASDIRECTED [facility] Last Admin: 01/27/20 08:16 Dose: 1 mls/hr Sodium Chloride (Normal Saline) 1,000 mls @ 0 mls/hr IV ASDIRECTED [facility] Last Admin: 01/27/20 08:19 Dose: 15 mls/hr Sodium Chloride (Normal Saline) 1,000 mls @ 0 mls/hr IV ASDIRECTED [facility] Last Admin: 01/27/20 08:20 Dose: 15 mls/hr Levofloxacin/Dextrose 750 mg/ (Premix) 150 mls @ 100 mls/hr IV Q24H [facility] Levothyroxine Sodium (Synthroid) 88 mcg PO DAILY@0730 [facility] Last Admin: 01/28/20 07:55 Dose: Not Given Methylprednisolone Sodium Succinate (Solu-Medrol) 40 mg IVPUSH Q6H [facility] Last Admin: 01/28/20 08:07 Dose: 40 mg Nicotine (Habitrol) 21 mg TRDERM DAILY [facility] Last Admin: 01/28/20 09:03 Dose: 21 mg Nicotine Polacrilex (Nicorelief) 2 mg CHEW Q1H PRN PRN Reason: Other Ondansetron HCl (Zofran) 4 mg IV Q4H PRN PRN Reason: Nausea/Vomiting Oxycodone/Acetaminophen (Percocet 325-5 Mg) 1 tab PO Q6H PRN PRN Reason: Pain (severe 7-10) Last Admin: 01/27/20 02:43 Dose: 1 tab Pantoprazole Sodium (Protonix Iv) 40 mg IVPUSH DAILY [facility] Last Admin: 01/28/20 08:33 Dose: 40 mg Polyethylene Glycol (Miralax) 17 gm PO DAILY PRN PRN Reason: Constipation Fluticasone/Salmeterol (Fluticasone-Salmeterol 232-14 Mcg Powder Inha) 1 puff INH BIDRT [facility] Last Admin: 01/28/20 07:00 Dose: Not Given Sodium Chloride (Saline Flush) 10 ml FLUSH ASDIRECTED PRN PRN Reason: Keep Vein Open Discontinued Medications Albuterol/Ipratropium (Duoneb 3.0-0.5 Mg/3 Ml) 3 ml NEB ONETIME ONE Stop: 01/26/20 10:05 Last Admin: 01/26/20 10:38 Dose: 3 ml Aspirin (Halfprin) 81 mg PO DAILY [facility] Atorvastatin Calcium (Lipitor) 40 mg PO DAILY [facility] Finasteride (Proscar) 5 mg PO DAILY [facility] Furosemide (Lasix) 40 mg IVPUSH NOW ONE Stop: 01/26/20 11:51 Last Admin: 01/26/20 12:30 Dose: 40 mg Furosemide (Lasix) 40 mg IVPUSH NOW ONE Stop: 01/26/20 21:01 Last Admin: 01/26/20 21:19 Dose: 40 mg Heparin Sodium (Porcine) (Heparin Sodium) Confirm Administered Dose 5,000 units .ROUTE .STK-MED ONE Stop: 01/27/20 06:10 Last Admin: 01/27/20 07:12 Dose: Not Given Propofol (Diprivan 100 Ml) Confirm Administered Dose 100 mls @ as directed .ROUTE .STK-MED ONE Stop: 01/27/20 06:19 Last Admin: 01/27/20 07:12 Dose: Not Given Propofol (Diprivan 100 Ml) Confirm Administered Dose 100 mls @ as directed .ROUTE .STK-MED ONE Stop: 01/27/20 22:01 Last Admin: 01/27/20 22:05 Dose: Not Given Lidocaine HCl (Xylocaine-Mpf 1%) 5 ml INJECT ONETIME ONE Stop: 01/26/20 13:06 Last Admin: 01/26/20 13:33 Dose: 5 ml Morphine Sulfate (Morphine) 1 - 2 mg IVPUSH Q2H PRN PRN Reason: Pain Last Admin: 01/26/20 22:37 Dose: 2 mg Pantoprazole Sodium (Protonix) 40 mg PO BIDAC [facility] Last Admin: 01/26/20 17:17 Dose: 40 mg Potassium Chloride (Klor-Con M20) 60 meq PO DAILY [facility] Sodium Chloride (Saline Flush) 10 ml FLUSH ASDIRECTED PRN PRN Reason: Keep Vein Open Last Admin: 01/26/20 10:41 Dose: 10 ml Spironolactone (Aldactone) 12.5 mg PO DAILY [facility] Tamsulosin HCl (Flomax) 0.8 mg PO DAILY EVGENY - Exam Quality Assessment: Supplemental Oxygen, Urine Catheter, DVT Prophylaxis General: Sedated, Lethargic Lungs: Decreased Breath Sounds. No: Rales, Rhonchi, Wheezing Cardiovascular: Regular Rate, Regular Rhythm, No Murmurs GI/Abdominal Exam: Soft, Non-Tender, No Organomegaly, No Distention Extremities: Non-Tender, Pedal Edema Sepsis Event Note - Evaluation Sepsis Screening Result: No Definite Risk - Focused Exam Vital Signs: Vital Signs Temp Pulse Resp BP Pulse Ox 01/28/20 09:00 68 19 120/52 L 90 L 01/28/20 08:00 97.5 F 68 18 108/58 L 69 L 01/28/20 07:39 87 L 01/28/20 07:01 71 01/28/20 06:00 19 108/51 L 92 L 01/28/20 05:00 20 119/51 L 93 L 01/28/20 04:00 97.0 F 22 H 118/62 94 L 01/28/20 03:00 15 119/59 L 96 01/28/20 02:00 14 105/53 L 93 L 01/28/20 01:00 15 110/57 L 93 L 01/28/20 00:00 97.7 F 19 104/54 L 95 01/27/20 23:00 15 106/55 L 94 L Date Exam was Performed: 01/28/20 Time Exam was Performed: 10:11 - Problem List Review Problem List Initiated/Reviewed/Updated: Yes - My Orders Last 24 Hours: My Active Orders 01/27/20 09:13 Nrsg Assess Restraint Init/Mon [RC] Q1H 01/27/20 09:15 Initiate/Renew Non-Violent Restraints (All Ages) Q24H 01/27/20 17:31 Communication Order [RC] DAILY 01/28/20 05:12 RT Communication [RC] Click to Edit 01/28/20 10:00 Levofloxacin/Dextrose 5%-Water [Levaquin in D5W 750 MG/150 ML] 750 mg Premix Bag 1 bag IV Q24H 01/28/20 17:00 BASIC METABOLIC PANEL,BMP [CHEM] Stat BLOOD GAS ARTERIAL [BG] Stat 01/29/20 05:00 CBC WITH AUTO DIFF [HEME] Timed COMPREHENSIVE METABOLIC PN,CMP [CHEM] Timed MAGNESIUM [CHEM] Timed 01/29/20 07:08 Chest 1V Frontal [CR] DAILY 01/29/20 08:30 VANCOMYCIN TROUGH [CHEM] Routine 01/30/20 07:08 Chest 1V Frontal [CR] DAILY 01/31/20 07:08 Chest 1V Frontal [CR] DAILY - Plan Plan:: ASSESSMENT AND PLAN DIASTOLIC CONGESTIVE HEART FAILURE AND COR PULMONALE-recent history of progressive weakness, increased shortness of breath, and marked increase in peripheral edema. Weakness has progressed to the point where he is no longer able to stand or ambulate. Lower extremities are erythematous but at the present time I believe that this is secondary to venous stasis. -IV furosemide twice daily -Echocardiogram report pending -Physical therapy consult ACUTE ON CHRONIC HYPOXIC AND HYPERCAPNIC RESPIRATORY FAILURE-[place] secondary to bilateral infiltrates noted on follow-up chest x-rays, blood cultures remain negative. Sputum culture growing gram-positive cocci, final ID and sensitivities are pending -Mechanical ventilation -Spontaneous breathing trial again in a.m. -Empiric IV antibiotic therapy with vancomycin, levofloxacin, and Zosyn -Solu-Medrol 40 mg IV every 6 hours -May need to consider tracheostomy for ongoing management of obesity related hypoventilation and obstructive apnea MORBID OBESITY-BMI of 54 MAINTENANCE ISSUES -DVT prophylaxis; Lovenox 40 mg subcu daily -GI prophylaxis; Protonix 40 mg IV daily -Sau[place]a catheter; will be placed to monitor urine output now that he is intubated and in the ICU -Nutrition; n.p.o. -Nicotine dependence; nicotine patch CODE STATUS-FULL CODE ADMISSION STATUS-patient will be admitted to inpatient status, expect at least a 2 night hospital stay for evaluation and management of problems as outlined above. At the time of this admission I do not reasonably expected evaluation and management of this problem will require more than a 96 hour hospital stay. DISPOSITION-anticipate discharge to home after the hospital stay. PRIMARY CARE PROVIDER-Dr. Ro
[2020-01-28] MEDS: Levofloxacin/Dextrose 5%-Water 750 MG in Premix Bag 1 BAG IV SCH (10:55)
[2020-01-28] MEDS: Albuterol 0.083% 2.5 MG/3 ML Neb Soln NEB PRN (15:08)
[2020-01-28] MEDS: Enoxaparin 40 MG/0.4 ML Syringe SUBCUT SCH (16:05)
[2020-01-28] MEDS ORDERED: Potassium Chloride Riders 40 MEQ in Premix Bag 1 BAG IV ONE (17:24)
[2020-01-28] MEDS: Potassium Chloride 20 MEQ, Lidocaine 1% 2 ML in Sodium Chloride 0.9% 100 ML IV SCH ×2 (20:43→20:47)
[2020-01-29] MEDS: methylPREDNISolone Sodium Succinate 40 MG/1 ML SDV IVPUSH SCH ×3 (01:35→21:01)
[2020-01-29] MEDS: Piperacillin/Tazobactam/Dext 3.375 GM in Premix Bag 1 BAG IV SCH ×4 (01:36→21:01)
[2020-01-29] MEDS: propofoL 100 ML IV SCH ×10 (01:41→23:59)
[2020-01-29] MEDS: Furosemide 40 MG/4 ML VIAL IVPUSH SCH ×2 (06:26→18:29)
[2020-01-29] MEDS: Albuterol/Ipratropium 3.0-0.5 MG/3 ML Neb Soln INH SCH ×3 (07:36→22:19)
[2020-01-29] MEDS: Fluticasone-Salmeterol 232-14 MCG Powder Inhalent INH SCH ×2 (07:44→21:27)
[2020-01-29] MEDS: Glycopyrrolate 15.6 MCG Cap.W.Dev Kit of 6 IH SCH ×2 (07:45→21:28)
[2020-01-29] MEDS: Levothyroxine 88 MCG Tab PO SCH (08:33)
--- NOTE | 2020-01-29 09:13 | PCM.PN ---
- General Info Date of Service: 01/29/20 Subjective Update: Mr. Hoskins has remained stable since yesterday. Vital signs have been good and he has remained afebrile. Currently in the process of weaning from sedation for spontaneous breathing trial. He is currently unable to provide meaningful information concerning symptoms or review of systems because of sedation and intubation - Patient Data Vitals - Most Recent: Last Vital Signs Temp 96.9 F 01/29/20 04:00 Pulse 62 01/29/20 07:45 Resp 14 01/29/20 07:00 BP 133/62 01/29/20 07:00 Pulse Ox 91 L 01/29/20 07:45 Weight - Most Recent: 416 lb I&O - Last 24 Hours: Intake & Output 01/28/20 01/29/20 01/29/20 22:59 06:59 14:59 Intake Total 1376 1137 Output Total 450 1650 Balance 926 -513 Lab Results Last 24 Hours: Laboratory Results - last 24 hr 01/28/20 01/28/20 01/29/20 Range/Units 17:00 17:00 05:05 WBC 8.6 (4.5-11.0) K/uL RBC 4.33 (4.30-5.90) M/uL Hgb 10.2 L (12.0-15.0) g/dL Hct 36.3 L (40.0-54.0) % MCV 84 (80-98) fL MCH 24 L (27-31) pg MCHC 28 L (32-36) % Plt Count 256 (150-400) K/uL Neut % (Auto) 83 H (36-66) % Lymph % (Auto) 9 L (24-44) % Pickett % (Auto) 8 H (2-6) % Eos % (Auto) 0 L (2-4) % Baso % (Auto) 0 (0-1) % Puncture Site A-line ABG pH 7.365 (7.350-7.450) ABG pCO2 74.8 H* (35.0-42.0) mmHg ABG pO2 66.8 L (75.0-100.0) mmHg ABG HCO3 41.7 H (22.0-26.0) mmol/L ABG Total CO2 38.7 H (23.0-27.0) mmol/L ABG O2 Saturation 91.6 L (95.0-98.0) % ABG O2 Content 13.4 L (15.0-23.0) %vol ABG Base Excess 13.9 mm/L ABG Hemoglobin 10.7 L (13.5-18.0) g/dL ABG Oxyhemoglobin 88.8 % ABG Carboxyhemoglobin 2.1 H (0.0-1.6) % ABG Methemoglobin 1.0 % Ruddy Test A-line O2 Delivery Device Ventilator Oxygen Flow Rate L Sodium 144 (140-148) mmol/L Potassium 3.6 (3.6-5.2) mmol/L Chloride 101 (100-108) mmol/L Carbon Dioxide 44 H (21-32) mmol/L Anion Gap 2.6 L (5.0-14.0) mmol/L BUN 26 H (7-18) mg/dL Creatinine 1.1 (0.8-1.3) mg/dL Est Cr Clr Drug Dosing 79.92 mL/min Estimated GFR (MDRD) > 60 (>60) Glucose 132 H (74-106) mg/dL Calcium 8.1 L (8.5-10.1) mg/dL Magnesium (1.8-2.4) mg/dL Total Bilirubin (0.2-1.0) mg/dL AST (15-37) U/L ALT (12-78) U/L Alkaline Phosphatase (46-116) U/L Total Protein (6.4-8.2) g/dL Albumin (3.4-5.0) g/dL Globulin (2.3-3.5) g/dL Albumin/Globulin Ratio (1.2-2.2) Vancomycin Trough (10.0-20.0) ug/mL 01/29/20 01/29/20 01/29/20 Range/Units 05:05 08:22 08:22 WBC (4.5-11.0) K/uL RBC (4.30-5.90) M/uL Hgb (12.0-15.0) g/dL Hct (40.0-54.0) % MCV (80-98) fL MCH (27-31) pg MCHC (32-36) % Plt Count (150-400) K/uL Neut % (Auto) (36-66) % Lymph % (Auto) (24-44) % Pickett % (Auto) (2-6) % Eos % (Auto) (2-4) % Baso % (Auto) (0-1) % Puncture Site A-line ABG pH 7.383 (7.350-7.450) ABG pCO2 74.1 H* (35.0-42.0) mmHg ABG pO2 64.5 L (75.0-100.0) mmHg ABG HCO3 43.2 H (22.0-26.0) mmol/L ABG Total CO2 39.8 H (23.0-27.0) mmol/L ABG O2 Saturation 91.5 L (95.0-98.0) % ABG O2 Content 13.8 L (15.0-23.0) %vol ABG Base Excess 15.4 mm/L ABG Hemoglobin 11.0 L (13.5-18.0) g/dL ABG Oxyhemoglobin 88.8 % ABG Carboxyhemoglobin 2.0 H (0.0-1.6) % ABG Methemoglobin 0.9 % Ruddy Test Not performed O2 Delivery Device Nasal cannula Oxygen Flow Rate 35.0 L Sodium 145 (140-148) mmol/L Potassium 3.8 (3.6-5.2) mmol/L Chloride 102 (100-108) mmol/L Carbon Dioxide 42 H (21-32) mmol/L Anion Gap 4.8 L (5.0-14.0) mmol/L BUN 26 H (7-18) mg/dL Creatinine 1.1 (0.8-1.3) mg/dL Est Cr Clr Drug Dosing 79.92 mL/min Estimated GFR (MDRD) > 60 (>60) Glucose 132 H (74-106) mg/dL Calcium 8.2 L (8.5-10.1) mg/dL Magnesium 2.3 (1.8-2.4) mg/dL Total Bilirubin 0.3 (0.2-1.0) mg/dL AST 10 L (15-37) U/L ALT 18 (12-78) U/L Alkaline Phosphatase 82 (46-116) U/L Total Protein 6.9 (6.4-8.2) g/dL Albumin 2.3 L (3.4-5.0) g/dL Globulin 4.6 H (2.3-3.5) g/dL Albumin/Globulin Ratio 0.5 L (1.2-2.2) Vancomycin Trough 31.6 H (10.0-20.0) ug/mL Petey Results Last 24 Hours: Microbiology 01/27/20 07:31 Aerobic Blood Culture - Preliminary Blood - Arterial Line - Abg NO GROWTH AFTER 2 DAYS Anaerobic Blood Culture - Preliminary NO GROWTH AFTER 2 DAYS 01/27/20 07:30 Aerobic Blood Culture - Preliminary Blood - A-Line NO GROWTH AFTER 2 DAYS Anaerobic Blood Culture - Preliminary NO GROWTH AFTER 2 DAYS 01/27/20 06:47 Gram Stain - Final Endotrachael Aspirate Respiratory Culture - Final Alpha Strep, Not Pneumococcus 01/26/20 10:33 Aerobic Blood Culture - Preliminary Blood - Arm, Left NO GROWTH AFTER 2 DAYS Anaerobic Blood Culture - Preliminary NO GROWTH AFTER 2 DAYS 01/26/20 10:20 Aerobic Blood Culture - Preliminary Blood - Arm, Left NO GROWTH AFTER 2 DAYS Anaerobic Blood Culture - Preliminary NO GROWTH AFTER 2 DAYS Med Orders - Current: Current Medications Acetaminophen (Tylenol) 650 mg PO Q4H PRN PRN Reason: Pain/Fever Albuterol (Ventolin Hfa) 0 gm INH Q4H PRN PRN Reason: Shortness of Breath Albuterol (Proventil Neb Soln) 2.5 mg NEB Q2H PRN PRN Reason: Shortness of Breath Last Admin: 01/28/20 15:08 Dose: 2.5 mg Albuterol/Ipratropium (Duoneb 3.0-0.5 Mg/3 Ml) 3 ml INH TIDRT [facility] Last Admin: 01/29/20 07:36 Dose: 3 ml Enoxaparin Sodium (Lovenox) 40 mg SUBCUT Q24H [facility] Last Admin: 01/28/20 16:05 Dose: 40 mg Furosemide (Lasix) 40 mg IVPUSH Q12H [facility] Last Admin: 01/29/20 06:26 Dose: 40 mg Glycopyrrolate (Seebri Neohaler) 15.6 mcg IH BIDRT [facility] Last Admin: 01/29/20 07:45 Dose: Not Given Piperacillin/Tazobactam/ (Dextrose 3.375 gm/ Premix) 50 mls @ 100 mls/hr IV Q6H [facility] Last Admin: 01/29/20 08:23 Dose: 100 mls/hr Propofol (Diprivan 100 Ml) 100 mls @ 5.443 mls/hr IV TITRATE [facility]; Protocol Last Admin: 01/29/20 05:58 Dose: 35 mcg/kg/min, 38.102 mls/hr Vancomycin HCl 2 gm/ Sodium (Chloride) 250 mls @ 166 mls/hr IV Q12H [facility] Last Admin: 01/28/20 22:22 Dose: 166 mls/hr Heparin Sodium (Porcine) 5,000 (units/ Sodium Chloride) 501 mls @ 1 mls/hr IV ASDIRECTED [facility] Last Admin: 01/27/20 08:16 Dose: 1 mls/hr Sodium Chloride (Normal Saline) 1,000 mls @ 0 mls/hr IV ASDIRECTED [facility] Last Admin: 01/27/20 08:19 Dose: 15 mls/hr Sodium Chloride (Normal Saline) 1,000 mls @ 0 mls/hr IV ASDIRECTED [facility] Last Admin: 01/27/20 08:20 Dose: 15 mls/hr Levofloxacin/Dextrose 750 mg/ (Premix) 150 mls @ 100 mls/hr IV Q24H [facility] Last Admin: 01/28/20 10:55 Dose: 100 mls/hr Levothyroxine Sodium (Synthroid) 88 mcg PO DAILY@0730 [facility] Last Admin: 01/29/20 08:33 Dose: Not Given Methylprednisolone Sodium Succinate (Solu-Medrol) 40 mg IVPUSH Q6H [facility] Last Admin: 01/29/20 08:27 Dose: 40 mg Nicotine (Habitrol) 21 mg TRDERM DAILY [facility] Last Admin: 01/28/20 09:03 Dose: 21 mg Nicotine Polacrilex (Nicorelief) 2 mg CHEW Q1H PRN PRN Reason: Other Ondansetron HCl (Zofran) 4 mg IV Q4H PRN PRN Reason: Nausea/Vomiting Oxycodone/Acetaminophen (Percocet 325-5 Mg) 1 tab PO Q6H PRN PRN Reason: Pain (severe 7-10) Last Admin: 01/27/20 02:43 Dose: 1 tab Pantoprazole Sodium (Protonix Iv) 40 mg IVPUSH DAILY [facility] Last Admin: 01/28/20 08:33 Dose: 40 mg Polyethylene Glycol (Miralax) 17 gm PO DAILY PRN PRN Reason: Constipation Fluticasone/Salmeterol (Fluticasone-Salmeterol 232-14 Mcg Powder Inha) 1 puff INH BIDRT [facility] Last Admin: 01/29/20 07:44 Dose: Not Given Sodium Chloride (Saline Flush) 10 ml FLUSH ASDIRECTED PRN PRN Reason: Keep Vein Open Discontinued Medications Albuterol/Ipratropium (Duoneb 3.0-0.5 Mg/3 Ml) 3 ml NEB ONETIME ONE Stop: 01/26/20 10:05 Last Admin: 01/26/20 10:38 Dose: 3 ml Aspirin (Halfprin) 81 mg PO DAILY [facility] Atorvastatin Calcium (Lipitor) 40 mg PO DAILY EVGENY Finasteride (Proscar) 5 mg PO DAILY [facility] Furosemide (Lasix) 40 mg IVPUSH NOW ONE Stop: 01/26/20 11:51 Last Admin: 01/26/20 12:30 Dose: 40 mg Furosemide (Lasix) 40 mg IVPUSH NOW ONE Stop: 01/26/20 21:01 Last Admin: 01/26/20 21:19 Dose: 40 mg Heparin Sodium (Porcine) (Heparin Sodium) Confirm Administered Dose 5,000 units .ROUTE .STK-MED ONE Stop: 01/27/20 06:10 Last Admin: 01/27/20 07:12 Dose: Not Given Propofol (Diprivan 100 Ml) Confirm Administered Dose 100 mls @ as directed .ROUTE .STK-MED ONE Stop: 01/27/20 06:19 Last Admin: 01/27/20 07:12 Dose: Not Given Propofol (Diprivan 100 Ml) Confirm Administered Dose 100 mls @ as directed .ROUTE .STK-MED ONE Stop: 01/27/20 22:01 Last Admin: 01/27/20 22:05 Dose: Not Given Potassium Chloride 20 meq/Lidocaine HCl 2 ml/ Sodium Chloride 112 mls @ 56 mls/ hr IV Q2H [facility] Stop: 01/28/20 21:59 Last Admin: 01/28/20 20:47 Dose: 56 mls/hr Lidocaine HCl (Xylocaine-Mpf 1%) 5 ml INJECT ONETIME ONE Stop: 01/26/20 13:06 Last Admin: 01/26/20 13:33 Dose: 5 ml Morphine Sulfate (Morphine) 1 - 2 mg IVPUSH Q2H PRN PRN Reason: Pain Last Admin: 01/26/20 22:37 Dose: 2 mg Pantoprazole Sodium (Protonix) 40 mg PO BIDAC EVGENY Last Admin: 01/26/20 17:17 Dose: 40 mg Potassium Chloride (Klor-Con M20) 60 meq PO DAILY [facility] Sodium Chloride (Saline Flush) 10 ml FLUSH ASDIRECTED PRN PRN Reason: Keep Vein Open Last Admin: 01/26/20 10:41 Dose: 10 ml Spironolactone (Aldactone) 12.5 mg PO DAILY [facility] Tamsulosin HCl (Flomax) 0.8 mg PO DAILY EVGENY - Exam Quality Assessment: Supplemental Oxygen, Urine Catheter, DVT Prophylaxis Lungs: Decreased Breath Sounds, Wheezing. No: Rales, Rhonchi Cardiovascular: Regular Rate, Regular Rhythm, No Murmurs GI/Abdominal Exam: Soft, Non-Tender, No Organomegaly, No Distention Extremities: Non-Tender, Pedal Edema Sepsis Event Note - Evaluation Sepsis Screening Result: No Definite Risk - Focused Exam Vital Signs: Vital Signs Temp Pulse Resp BP Pulse Ox Pulse Ox 01/29/20 07:45 62 91 L 01/29/20 07:00 64 14 133/62 89 L 01/29/20 06:00 17 113/58 L 91 L 01/29/20 05:00 15 111/60 90 L 01/29/20 04:00 96.9 F 15 115/62 91 L 01/29/20 03:00 18 123/63 92 L 01/29/20 02:00 18 118/60 91 L 01/29/20 01:00 19 131/67 92 L 01/29/20 00:00 97.3 F 27 H 129/64 93 L 01/28/20 23:00 19 134/68 90 L 01/28/20 22:00 16 135/69 90 L Date Exam was Performed: 01/29/20 Time Exam was Performed: 09:03 - Problem List Review Problem List Initiated/Reviewed/Updated: Yes - My Orders Last 24 Hours: My Active Orders 01/28/20 10:00 Levofloxacin/Dextrose 5%-Water [Levaquin in D5W 750 MG/150 ML] 750 mg Premix Bag 1 bag IV Q24H 01/28/20 12:45 Initiate/Renew Non-Violent Restraints (All Ages) Q24H 01/29/20 07:08 Chest 1V Frontal [CR] DAILY 01/30/20 05:00 BLOOD GAS ARTERIAL [BG] Timed CBC WITH AUTO DIFF [HEME] Timed COMPREHENSIVE METABOLIC PN,CMP [CHEM] Timed MAGNESIUM [CHEM] Timed 01/30/20 07:08 Chest 1V Frontal [CR] DAILY 01/31/20 07:08 Chest 1V Frontal [CR] DAILY - Plan Plan:: ASSESSMENT AND PLAN DIASTOLIC CONGESTIVE HEART FAILURE AND COR PULMONALE-echocardiogram showed preserved left ventricular systolic function, moderate diastolic dysfunction and elevated right-sided pressures. Continued good daily diuresis with current dose of furosemide, renal function has remained stable -IV furosemide twice daily -Physical therapy consult ACUTE ON CHRONIC HYPOXIC AND HYPERCAPNIC RESPIRATORY FAILURE-[place] secondary to bilateral infiltrates noted on follow-up chest x-rays, blood cultures remain negative. Sputum culture growing alpha strep. Spontaneous breathing trial is currently in progress this morning. -Mechanical ventilation -Spontaneous breathing trial again in a.m. -Discontinue IV vancomycin -Empiric IV antibiotic therapy with levofloxacin and Zosyn -Solu-Medrol 40 mg IV every 12 hours -May need to consider tracheostomy for ongoing management of obesity related hypoventilation and obstructive apnea MORBID OBESITY-BMI of 54 MAINTENANCE ISSUES -DVT prophylaxis; Lovenox 40 mg subcu daily -GI prophylaxis; Protonix 40 mg IV daily -Sauceda catheter; will be placed to monitor urine output now that he is intubated and in the ICU -Nutrition; n.p.o. -Nicotine dependence; nicotine patch CODE STATUS-FULL CODE ADMISSION STATUS-patient will be admitted to inpatient status, expect at least a 2 night hospital stay for evaluation and management of problems as outlined above. At the time of this admission I do not reasonably expected evaluation and management of this problem will require more than a 96 hour hospital stay. DISPOSITION-anticipate discharge to home after the hospital stay. PRIMARY CARE PROVIDER-Dr. Ro
--- NOTE | 2020-01-29 09:24 | CR ---
CHEST: Portable 01/29/2020 at 4:39 AM CLINICAL HISTORY:Respiratory failure COMPARISON:01/28/2020 FINDINGS: Endotracheal tube is in the upper trachea. It is removed the slightly since prior studies. There are persistent bilateral pulmonary infiltrates. There is some improvement since prior study. There is persistent moderate airspace disease in the left lower lobe the liver to prior study. Impression: Endotracheal tube is slightly higher, now in the upper trachea. Slight improvement in diffuse pulmonary infiltrates Persistent left lower lobe airspace disease without significant change
[2020-01-29] MEDS: Pantoprazole 40 MG Vial IVPUSH SCH (09:39)
[2020-01-29] MEDS: Nicotine 21 MG/24 Hr Patch TRDERM SCH (09:42)
[2020-01-29] MEDS: Levofloxacin/Dextrose 5%-Water 750 MG in Premix Bag 1 BAG IV SCH (10:00)
[2020-01-29] MEDS: Enoxaparin 40 MG/0.4 ML Syringe SUBCUT SCH (16:35)
[2020-01-30] MEDS: Piperacillin/Tazobactam/Dext 3.375 GM in Premix Bag 1 BAG IV SCH ×2 (02:18→08:23)
[2020-01-30] MEDS: propofoL 100 ML IV SCH ×9 (02:40→22:11)
[2020-01-30] MEDS: Furosemide 40 MG/4 ML VIAL IVPUSH SCH ×2 (06:23→18:28)
[2020-01-30] MEDS: Albuterol/Ipratropium 3.0-0.5 MG/3 ML Neb Soln INH SCH ×3 (07:00→21:05)
[2020-01-30] MEDS: Glycopyrrolate 15.6 MCG Cap.W.Dev Kit of 6 IH SCH ×2 (07:07→21:06)
[2020-01-30] MEDS: Fluticasone-Salmeterol 232-14 MCG Powder Inhalent INH SCH ×2 (07:07→21:06)
[2020-01-30] MEDS: Levothyroxine 88 MCG Tab PO SCH (08:19)
[2020-01-30] MEDS: methylPREDNISolone Sodium Succinate 40 MG/1 ML SDV IVPUSH SCH (08:20)
[2020-01-30] MEDS: Potassium Chloride 20 MEQ in Premix Bag 1 BAG IV SCH ×4 (09:01→18:44)
[2020-01-30] MEDS: Nicotine 21 MG/24 Hr Patch TRDERM SCH (09:50)
[2020-01-30] MEDS: Pantoprazole 40 MG Vial IVPUSH SCH (09:50)
[2020-01-30] MEDS: Levofloxacin/Dextrose 5%-Water 750 MG in Premix Bag 1 BAG IV SCH (10:05)
--- NOTE | 2020-01-30 10:26 | PCM.PN ---
- General Info Date of Service: 01/30/20 Subjective Update: Mr. Hoskins has been relatively stable over the last 24 hours. Good diuresis with current diuretic therapy. He did better today on his spontaneous breathing trial. He is unable to provide meaningful history concerning recent symptoms or review of systems because of IV sedation and intubation. - Patient Data Vitals - Most Recent: Last Vital Signs Temp 97.0 F 01/30/20 08:00 Pulse 59 L 01/30/20 08:00 Resp 27 H 01/30/20 08:00 BP 127/56 L 01/30/20 08:00 Pulse Ox 93 L 01/30/20 08:00 Weight - Most Recent: 416 lb I&O - Last 24 Hours: Intake & Output 01/29/20 01/30/20 01/30/20 22:59 06:59 14:59 Intake Total 1204 1083 1950 Output Total 2024 1000 Balance -397 58 1769 Lab Results Last 24 Hours: Laboratory Results - last 24 hr 01/30/20 01/30/20 01/30/20 Range/Units 06:00 06:11 06:11 WBC 8.6 (4.5-11.0) K/uL RBC 4.68 (4.30-5.90) M/uL Hgb 11.0 L (12.0-15.0) g/dL Hct 38.9 L (40.0-54.0) % MCV 83 (80-98) fL MCH 24 L (27-31) pg MCHC 28 L (32-36) % Plt Count 260 (150-400) K/uL Add Manual Diff Yes Neutrophils % (Manual) 79 H (36-66) % Band Neutrophils % 5 (5-11) % Lymphocytes % (Manual) 8 L (24-44) % Monocytes % (Manual) 8 H (2-6) % Puncture Site A-line ABG pH 7.368 (7.350-7.450) ABG pCO2 82.0 H* (35.0-42.0) mmHg ABG pO2 64.0 L (75.0-100.0) mmHg ABG HCO3 46.1 H (22.0-26.0) mmol/L ABG Total CO2 42.4 H (23.0-27.0) mmol/L ABG O2 Saturation 89.6 L (95.0-98.0) % ABG O2 Content 14.0 L (15.0-23.0) %vol ABG Base Excess 17.4 mm/L ABG Hemoglobin 11.3 L (13.5-18.0) g/dL ABG Oxyhemoglobin 87.5 % ABG Carboxyhemoglobin 1.3 (0.0-1.6) % ABG Methemoglobin 1.0 % Ruddy Test A-line O2 Delivery Device Ventilator Oxygen Flow Rate L Sodium 145 (140-148) mmol/L Potassium 3.3 L (3.6-5.2) mmol/L Chloride 100 (100-108) mmol/L Carbon Dioxide 43 H (21-32) mmol/L Anion Gap 5.3 (5.0-14.0) mmol/L BUN 26 H (7-18) mg/dL Creatinine 1.0 (0.8-1.3) mg/dL Est Cr Clr Drug Dosing 87.91 mL/min Estimated GFR (MDRD) > 60 (>60) Glucose 125 H (74-106) mg/dL Calcium 8.3 L (8.5-10.1) mg/dL Magnesium 2.2 (1.8-2.4) mg/dL Total Bilirubin 0.4 (0.2-1.0) mg/dL AST 16 (15-37) U/L ALT 20 (12-78) U/L Alkaline Phosphatase 78 (46-116) U/L Total Protein 7.0 (6.4-8.2) g/dL Albumin 2.4 L (3.4-5.0) g/dL Globulin 4.6 H (2.3-3.5) g/dL Albumin/Globulin Ratio 0.5 L (1.2-2.2) Petey Results Last 24 Hours: Microbiology 01/27/20 07:30 Aerobic Blood Culture - Preliminary Blood - A-Line NO GROWTH AFTER 3 DAYS Anaerobic Blood Culture - Preliminary NO GROWTH AFTER 3 DAYS 01/27/20 07:31 Aerobic Blood Culture - Preliminary Blood - Arterial Line - Abg NO GROWTH AFTER 3 DAYS Anaerobic Blood Culture - Preliminary NO GROWTH AFTER 3 DAYS 01/26/20 10:33 Aerobic Blood Culture - Preliminary Blood - Arm, Left NO GROWTH AFTER 3 DAYS Anaerobic Blood Culture - Preliminary NO GROWTH AFTER 3 DAYS 01/26/20 10:20 Aerobic Blood Culture - Preliminary Blood - Arm, Left NO GROWTH AFTER 3 DAYS Anaerobic Blood Culture - Preliminary NO GROWTH AFTER 3 DAYS 01/27/20 06:47 Gram Stain - Final Endotrachael Aspirate Respiratory Culture - Final Alpha Strep, Not Pneumococcus Med Orders - Current: Current Medications Acetaminophen (Tylenol) 650 mg PO Q4H PRN PRN Reason: Pain/Fever Albuterol (Ventolin Hfa) 0 gm INH Q4H PRN PRN Reason: Shortness of Breath Albuterol (Proventil Neb Soln) 2.5 mg NEB Q2H PRN PRN Reason: Shortness of Breath Last Admin: 01/28/20 15:08 Dose: 2.5 mg Albuterol/Ipratropium (Duoneb 3.0-0.5 Mg/3 Ml) 3 ml INH TIDRT [facility] Last Admin: 01/30/20 07:00 Dose: 3 ml Enoxaparin Sodium (Lovenox) 40 mg SUBCUT Q24H [facility] Last Admin: 01/29/20 16:35 Dose: 40 mg Furosemide (Lasix) 40 mg IVPUSH Q12H [facility] Last Admin: 01/30/20 06:23 Dose: 40 mg Glycopyrrolate (Seebri Neohaler) 15.6 mcg IH BIDRT [facility] Last Admin: 01/30/20 07:07 Dose: Not Given Propofol (Diprivan 100 Ml) 100 mls @ 5.443 mls/hr IV TITRATE [facility]; Protocol Last Admin: 01/30/20 08:55 Dose: 40 mcg/kg/min, 43.545 mls/hr Heparin Sodium (Porcine) 5,000 (units/ Sodium Chloride) 501 mls @ 1 mls/hr IV ASDIRECTED [facility] Last Infusion: 01/30/20 09:27 Dose: Infused Levofloxacin/Dextrose 750 mg/ (Premix) 150 mls @ 100 mls/hr IV Q24H [facility] Last Admin: 01/30/20 10:05 Dose: 100 mls/hr Potassium Chloride 20 meq/ (Premix) 100 mls @ 50 mls/hr IV Q2H EVGENY Stop: 01/30/20 12:59 Last Admin: 01/30/20 09:01 Dose: 50 mls/hr Potassium Chloride 40 meq/ (Premix) 100 mls @ 25 mls/hr IV ONETIME ONE Stop: 01/30/20 19:59 Levothyroxine Sodium (Synthroid) 88 mcg PO DAILY@0730 [facility] Last Admin: 01/30/20 08:19 Dose: Not Given Methylprednisolone Sodium Succinate (Solu-Medrol) 40 mg IVPUSH Q24H [facility] Nicotine (Habitrol) 21 mg TRDERM DAILY [facility] Last Admin: 01/30/20 09:50 Dose: 21 mg Nicotine Polacrilex (Nicorelief) 2 mg CHEW Q1H PRN PRN Reason: Other Ondansetron HCl (Zofran) 4 mg IV Q4H PRN PRN Reason: Nausea/Vomiting Oxycodone/Acetaminophen (Percocet 325-5 Mg) 1 tab PO Q6H PRN PRN Reason: Pain (severe 7-10) Last Admin: 01/27/20 02:43 Dose: 1 tab Pantoprazole Sodium (Protonix Iv) 40 mg IVPUSH DAILY [facility] Last Admin: 01/30/20 09:50 Dose: 40 mg Polyethylene Glycol (Miralax) 17 gm PO DAILY PRN PRN Reason: Constipation Fluticasone/Salmeterol (Fluticasone-Salmeterol 232-14 Mcg Powder Inha) 1 puff INH BIDRT [facility] Last Admin: 01/30/20 07:07 Dose: Not Given Sodium Chloride (Saline Flush) 10 ml FLUSH ASDIRECTED PRN PRN Reason: Keep Vein Open Discontinued Medications Albuterol/Ipratropium (Duoneb 3.0-0.5 Mg/3 Ml) 3 ml NEB ONETIME ONE Stop: 01/26/20 10:05 Last Admin: 01/26/20 10:38 Dose: 3 ml Aspirin (Halfprin) 81 mg PO DAILY [facility] Atorvastatin Calcium (Lipitor) 40 mg PO DAILY [facility] Finasteride (Proscar) 5 mg PO DAILY [facility] Furosemide (Lasix) 40 mg IVPUSH NOW ONE Stop: 01/26/20 11:51 Last Admin: 01/26/20 12:30 Dose: 40 mg Furosemide (Lasix) 40 mg IVPUSH NOW ONE Stop: 01/26/20 21:01 Last Admin: 01/26/20 21:19 Dose: 40 mg Heparin Sodium (Porcine) (Heparin Sodium) Confirm Administered Dose 5,000 units .ROUTE .STK-MED ONE Stop: 01/27/20 06:10 Last Admin: 01/27/20 07:12 Dose: Not Given Propofol (Diprivan 100 Ml) Confirm Administered Dose 100 mls @ as directed .ROUTE .STK-MED ONE Stop: 01/27/20 06:19 Last Admin: 01/27/20 07:12 Dose: Not Given Piperacillin/Tazobactam/ (Dextrose 3.375 gm/ Premix) 50 mls @ 100 mls/hr IV Q6H [facility] Last Admin: 01/30/20 08:23 Dose: 100 mls/hr Vancomycin HCl 2 gm/ Sodium (Chloride) 250 mls @ 166 mls/hr IV Q12H [facility] Last Admin: 01/28/20 22:22 Dose: 166 mls/hr Sodium Chloride (Normal Saline) 1,000 mls @ 0 mls/hr IV ASDIRECTED [facility] Last Admin: 01/27/20 08:19 Dose: 15 mls/hr Sodium Chloride (Normal Saline) 1,000 mls @ 0 mls/hr IV ASDIRECTED [facility] Last Admin: 01/27/20 08:20 Dose: 15 mls/hr Propofol (Diprivan 100 Ml) Confirm Administered Dose 100 mls @ as directed .ROUTE .STK-MED ONE Stop: 01/27/20 22:01 Last Admin: 01/27/20 22:05 Dose: Not Given Potassium Chloride 20 meq/Lidocaine HCl 2 ml/ Sodium Chloride 112 mls @ 56 mls/ hr IV Q2H [facility] Stop: 01/28/20 21:59 Last Admin: 01/28/20 20:47 Dose: 56 mls/hr Vancomycin HCl 1.5 gm/ Sodium (Chloride) 250 mls @ 166 mls/hr IV Q12H [facility] Lidocaine HCl (Xylocaine-Mpf 1%) 5 ml INJECT ONETIME ONE Stop: 01/26/20 13:06 Last Admin: 01/26/20 13:33 Dose: 5 ml Methylprednisolone Sodium Succinate (Solu-Medrol) 40 mg IVPUSH Q6H [facility] Last Admin: 01/29/20 08:27 Dose: 40 mg Methylprednisolone Sodium Succinate (Solu-Medrol) 40 mg IVPUSH Q12H [facility] Last Admin: 01/30/20 08:20 Dose: 40 mg Morphine Sulfate (Morphine) 1 - 2 mg IVPUSH Q2H PRN PRN Reason: Pain Last Admin: 01/26/20 22:37 Dose: 2 mg Pantoprazole Sodium (Protonix) 40 mg PO BIDAC EVGENY Last Admin: 01/26/20 17:17 Dose: 40 mg Potassium Chloride (Klor-Con M20) 60 meq PO DAILY [facility] Sodium Chloride (Saline Flush) 10 ml FLUSH ASDIRECTED PRN PRN Reason: Keep Vein Open Last Admin: 01/26/20 10:41 Dose: 10 ml Spironolactone (Aldactone) 12.5 mg PO DAILY [facility] Tamsulosin HCl (Flomax) 0.8 mg PO DAILY EVGENY - Exam Quality Assessment: Supplemental Oxygen, Urine Catheter, DVT Prophylaxis General: Sedated, Lethargic Lungs: Normal Respiratory Effort, Decreased Breath Sounds, Wheezing. No: Crackles, Rales, Rhonchi, Rub Cardiovascular: Regular Rate, Regular Rhythm, No Murmurs GI/Abdominal Exam: Soft, Non-Tender, No Organomegaly, No Distention Extremities: Non-Tender, Pedal Edema Sepsis Event Note - Evaluation Sepsis Screening Result: No Definite Risk - Focused Exam Vital Signs: Vital Signs Temp Pulse Resp BP Pulse Ox 01/30/20 08:00 97.0 F 59 L 27 H 127/56 L 93 L 01/30/20 07:00 57 L 01/30/20 06:00 14 136/64 92 L 01/30/20 05:00 14 116/54 L 93 L 01/30/20 04:00 97.5 F 14 129/59 L 92 L 01/30/20 03:00 14 138/70 90 L 01/30/20 02:00 18 125/63 92 L 01/30/20 01:00 14 143/72 H 96 01/30/20 00:00 96.9 F 20 127/65 96 01/29/20 23:00 20 140/66 89 L Date Exam was Performed: 01/30/20 Time Exam was Performed: 10:23 - Problem List Review Problem List Initiated/Reviewed/Updated: Yes - My Orders Last 24 Hours: My Active Orders 01/30/20 07:08 Chest 1V Frontal [CR] DAILY 01/30/20 09:00 Potassium Chloride [KCL 20 MEQ in Water 100 ML] 20 meq Premix Bag 1 bag IV Q2H 01/30/20 10:30 methylPREDNISolone Sod Succ [Solu-MEDROL] 40 mg IVPUSH Q24H 01/30/20 16:00 Potassium Chloride Riders [KCL 40 MEQ in Water 100 ML] 40 meq Premix Bag 1 bag IV ONETIME 01/31/20 05:00 BLOOD GAS ARTERIAL [BG] Timed CBC WITH AUTO DIFF [HEME] Timed COMPREHENSIVE METABOLIC PN,CMP [CHEM] Timed 01/31/20 07:08 Chest 1V Frontal [CR] DAILY - Plan Plan:: ASSESSMENT AND PLAN DIASTOLIC CONGESTIVE HEART FAILURE AND COR PULMONALE-echocardiogram showed preserved left ventricular systolic function, moderate diastolic dysfunction and elevated right-sided pressures. Continued good daily diuresis with current dose of furosemide, renal function has remained stable -IV furosemide twice daily -Physical therapy consult ACUTE ON CHRONIC HYPOXIC AND HYPERCAPNIC RESPIRATORY FAILURE-Likley secondary to bilateral infiltrates noted on follow-up chest x-rays, blood cultures remain negative. Sputum culture growing alpha strep. Did better with spontaneous breathing trial today, will plan for 1 more day of mechanical ventilation and diuresis, if stable plan for extubation tomorrow. -Mechanical ventilation -Spontaneous breathing trial again in a.m. -Discontinue Zosyn -Empiric IV antibiotic therapy with levofloxacin -Solu-Medrol 40 mg IV every 24 hours -May need to consider tracheostomy for ongoing management of obesity related hypoventilation and obstructive apnea MORBID OBESITY-BMI of 54 MAINTENANCE ISSUES -DVT prophylaxis; Lovenox 40 mg subcu daily -GI prophylaxis; Protonix 40 mg IV daily -Sauceda catheter; will be placed to monitor urine output now that he is intubated and in the ICU -Nutrition; n.p.o. -Nicotine dependence; nicotine patch CODE STATUS-FULL CODE ADMISSION STATUS-patient will be admitted to inpatient status, expect at least a 2 night hospital stay for evaluation and management of problems as outlined above. At the time of this admission I do not reasonably expected evaluation and management of this problem will require more than a 96 hour hospital stay. DISPOSITION-anticipate discharge to home after the hospital stay. PRIMARY CARE PROVIDER-Dr. Ro
[2020-01-30] MEDS: Enoxaparin 40 MG/0.4 ML Syringe SUBCUT SCH (16:48)
[2020-01-31] MEDS: propofoL 100 ML IV SCH ×10 (00:22→22:47)
[2020-01-31] MEDS: Albuterol/Ipratropium 3.0-0.5 MG/3 ML Neb Soln INH SCH ×3 (06:59→21:07)
[2020-01-31] MEDS: Fluticasone-Salmeterol 232-14 MCG Powder Inhalent INH SCH ×2 (07:06→21:07)
[2020-01-31] MEDS: Glycopyrrolate 15.6 MCG Cap.W.Dev Kit of 6 IH SCH ×2 (07:39→21:07)
[2020-01-31] MEDS: Furosemide 40 MG/4 ML VIAL IVPUSH SCH ×2 (07:55→18:57)
[2020-01-31] MEDS: Levothyroxine 88 MCG Tab PO SCH (08:21)
[2020-01-31] MEDS: methylPREDNISolone Sodium Succinate 40 MG/1 ML SDV IVPUSH SCH (08:22)
[2020-01-31] MEDS: Potassium Chloride 20 MEQ in Premix Bag 1 BAG IV SCH ×2 (08:57→12:00)
[2020-01-31] MEDS: Nicotine 21 MG/24 Hr Patch TRDERM SCH (09:01)
[2020-01-31] MEDS: Pantoprazole 40 MG Vial IVPUSH SCH (09:05)
[2020-01-31] MEDS: Levofloxacin/Dextrose 5%-Water 750 MG in Premix Bag 1 BAG IV SCH (09:41)
--- NOTE | 2020-01-31 12:35 | PCM.PN ---
- General Info Date of Service: 01/31/20 Subjective Update: Mr. Hoskins has been fairly stable since yesterday, ongoing good diuresis. Vital signs have been good and he has remained afebrile. Continues to tolerate current level of ventilatory support. Unfortunately he did fail spontaneous breathing trial this morning. He is unable to provide a meaningful history concerning symptoms or review of systems because of intubation and sedation. - Patient Data Vitals - Most Recent: Last Vital Signs Temp 97.7 F 01/31/20 08:00 Pulse 78 01/31/20 12:27 Resp 20 01/31/20 11:00 BP 125/66 01/31/20 11:00 Pulse Ox 91 L 01/31/20 11:00 Weight - Most Recent: 416 lb I&O - Last 24 Hours: Intake & Output 01/30/20 01/31/20 01/31/20 22:59 06:59 14:59 Intake Total 965 589 Output Total 2100 1600 1750 Balance -3840 -4103 -6450 Lab Results Last 24 Hours: Laboratory Results - last 24 hr 01/31/20 01/31/20 01/31/20 Range/Units 05:00 05:00 05:00 WBC 8.1 (4.5-11.0) K/uL RBC 4.76 (4.30-5.90) M/uL Hgb 11.4 L (12.0-15.0) g/dL Hct 39.4 L (40.0-54.0) % MCV 83 (80-98) fL MCH 24 L (27-31) pg MCHC 29 L (32-36) % Plt Count 266 (150-400) K/uL Add Manual Diff Yes Neutrophils % (Manual) 52 (36-66) % Band Neutrophils % 2 L (5-11) % Lymphocytes % (Manual) 27 (24-44) % Monocytes % (Manual) 17 H (2-6) % Blast Cells % 2 % Puncture Site A-line ABG pH 7.402 (7.350-7.450) ABG pCO2 79.5 H* (35.0-42.0) mmHg ABG pO2 64.2 L (75.0-100.0) mmHg ABG HCO3 48.4 H (22.0-26.0) mmol/L ABG Total CO2 44.3 H (23.0-27.0) mmol/L ABG O2 Saturation 90.7 L (95.0-98.0) % ABG O2 Content 14.1 L (15.0-23.0) %vol ABG Base Excess 19.9 mm/L ABG Hemoglobin 11.3 L (13.5-18.0) g/dL ABG Oxyhemoglobin 88.4 % ABG Carboxyhemoglobin 1.4 (0.0-1.6) % ABG Methemoglobin 1.1 % Ruddy Test A-line O2 Delivery Device Ventilator Oxygen Flow Rate L Sodium 147 (140-148) mmol/L Potassium 3.2 L (3.6-5.2) mmol/L Chloride 101 (100-108) mmol/L Carbon Dioxide > 45 H (21-32) mmol/L Anion Gap 4.2 L (5.0-14.0) mmol/L BUN 24 H (7-18) mg/dL Creatinine 1.0 (0.8-1.3) mg/dL Est Cr Clr Drug Dosing 87.91 mL/min Estimated GFR (MDRD) > 60 (>60) Glucose 95 (74-106) mg/dL Calcium 8.3 L (8.5-10.1) mg/dL Total Bilirubin 0.3 (0.2-1.0) mg/dL AST 22 (15-37) U/L ALT 24 (12-78) U/L Alkaline Phosphatase 71 (46-116) U/L Total Protein 6.6 (6.4-8.2) g/dL Albumin 2.4 L (3.4-5.0) g/dL Globulin 4.2 H (2.3-3.5) g/dL Albumin/Globulin Ratio 0.6 L (1.2-2.2) Petey Results Last 24 Hours: Microbiology 01/26/20 10:33 Aerobic Blood Culture - Final Blood - Arm, Left NO GROWTH AFTER 5 DAYS Anaerobic Blood Culture - Final NO GROWTH AFTER 5 DAYS 01/26/20 10:20 Aerobic Blood Culture - Final Blood - Arm, Left NO GROWTH AFTER 5 DAYS Anaerobic Blood Culture - Final NO GROWTH AFTER 5 DAYS 01/27/20 07:31 Aerobic Blood Culture - Preliminary Blood - Arterial Line - Abg NO GROWTH AFTER 4 DAYS Anaerobic Blood Culture - Preliminary NO GROWTH AFTER 4 DAYS 01/27/20 07:30 Aerobic Blood Culture - Preliminary Blood - A-Line NO GROWTH AFTER 4 DAYS Anaerobic Blood Culture - Preliminary NO GROWTH AFTER 4 DAYS Med Orders - Current: Current Medications Acetaminophen (Tylenol) 650 mg PO Q4H PRN PRN Reason: Pain/Fever Albuterol (Ventolin Hfa) 0 gm INH Q4H PRN PRN Reason: Shortness of Breath Albuterol (Proventil Neb Soln) 2.5 mg NEB Q2H PRN PRN Reason: Shortness of Breath Last Admin: 01/28/20 15:08 Dose: 2.5 mg Albuterol/Ipratropium (Duoneb 3.0-0.5 Mg/3 Ml) 3 ml INH TIDRT [facility] Last Admin: 01/31/20 12:25 Dose: 3 ml Enoxaparin Sodium (Lovenox) 40 mg SUBCUT Q24H [facility] Last Admin: 01/30/20 16:48 Dose: 40 mg Furosemide (Lasix) 40 mg IVPUSH Q12H [facility] Glycopyrrolate (Seebri Neohaler) 15.6 mcg IH BIDRT [facility] Last Admin: 01/31/20 07:39 Dose: Not Given Propofol (Diprivan 100 Ml) 100 mls @ 5.443 mls/hr IV TITRATE [facility]; Protocol Last Admin: 01/31/20 11:37 Dose: 45 mcg/kg/min, 48.988 mls/hr Heparin Sodium (Porcine) 5,000 (units/ Sodium Chloride) 501 mls @ 1 mls/hr IV ASDIRECTED [facility] Last Infusion: 01/30/20 09:27 Dose: Infused Levofloxacin/Dextrose 750 mg/ (Premix) 150 mls @ 100 mls/hr IV Q24H [facility] Last Admin: 01/31/20 09:41 Dose: 100 mls/hr Potassium Chloride 20 meq/ (Premix) 100 mls @ 50 mls/hr IV Q2H [facility] Stop: 01/31/20 12:59 Last Admin: 01/31/20 12:00 Dose: 50 mls/hr Potassium Chloride 40 meq/ (Premix) 100 mls @ 25 mls/hr IV ONETIME ONE Stop: 01/31/20 17:59 Potassium Chloride 40 meq/ (Premix) 100 mls @ 25 mls/hr IV ONETIME ONE Stop: 01/31/20 23:59 Levothyroxine Sodium (Synthroid) 88 mcg PO DAILY@0730 [facility] Last Admin: 01/31/20 08:21 Dose: Not Given Methylprednisolone Sodium Succinate (Solu-Medrol) 40 mg IVPUSH Q24H [facility] Last Admin: 01/31/20 08:22 Dose: 40 mg Nicotine (Habitrol) 21 mg TRDERM DAILY [facility] Last Admin: 01/31/20 09:01 Dose: 21 mg Nicotine Polacrilex (Nicorelief) 2 mg CHEW Q1H PRN PRN Reason: Other Ondansetron HCl (Zofran) 4 mg IV Q4H PRN PRN Reason: Nausea/Vomiting Oxycodone/Acetaminophen (Percocet 325-5 Mg) 1 tab PO Q6H PRN PRN Reason: Pain (severe 7-10) Last Admin: 01/27/20 02:43 Dose: 1 tab Pantoprazole Sodium (Protonix Iv) 40 mg IVPUSH DAILY [facility] Last Admin: 01/31/20 09:05 Dose: 40 mg Polyethylene Glycol (Miralax) 17 gm PO DAILY PRN PRN Reason: Constipation Fluticasone/Salmeterol (Fluticasone-Salmeterol 232-14 Mcg Powder Inha) 1 puff INH BIDRT [facility] Last Admin: 01/31/20 07:06 Dose: Not Given Sodium Chloride (Saline Flush) 10 ml FLUSH ASDIRECTED PRN PRN Reason: Keep Vein Open Discontinued Medications Albuterol/Ipratropium (Duoneb 3.0-0.5 Mg/3 Ml) 3 ml NEB ONETIME ONE Stop: 01/26/20 10:05 Last Admin: 01/26/20 10:38 Dose: 3 ml Aspirin (Halfprin) 81 mg PO DAILY [facility] Atorvastatin Calcium (Lipitor) 40 mg PO DAILY [facility] Finasteride (Proscar) 5 mg PO DAILY [facility] Furosemide (Lasix) 40 mg IVPUSH NOW ONE Stop: 01/26/20 11:51 Last Admin: 01/26/20 12:30 Dose: 40 mg Furosemide (Lasix) 40 mg IVPUSH NOW ONE Stop: 01/26/20 21:01 Last Admin: 01/26/20 21:19 Dose: 40 mg Furosemide (Lasix) 40 mg IVPUSH Q12H [facility] Stop: 01/31/20 09:00 Last Admin: 01/31/20 07:55 Dose: 40 mg Heparin Sodium (Porcine) (Heparin Sodium) Confirm Administered Dose 5,000 units .ROUTE .[facility] ONE Stop: 01/27/20 06:10 Last Admin: 01/27/20 07:12 Dose: Not Given Propofol (Diprivan 100 Ml) Confirm Administered Dose 100 mls @ as directed .ROUTE .[facility] ONE Stop: 01/27/20 06:19 Last Admin: 01/27/20 07:12 Dose: Not Given Piperacillin/Tazobactam/ (Dextrose 3.375 gm/ Premix) 50 mls @ 100 mls/hr IV Q6H [facility] Last Admin: 01/30/20 08:23 Dose: 100 mls/hr Vancomycin HCl 2 gm/ Sodium (Chloride) 250 mls @ 166 mls/hr IV Q12H [facility] Last Admin: 01/28/20 22:22 Dose: 166 mls/hr Sodium Chloride (Normal Saline) 1,000 mls @ 0 mls/hr IV ASDIRECTED [facility] Last Admin: 01/27/20 08:19 Dose: 15 mls/hr Sodium Chloride (Normal Saline) 1,000 mls @ 0 mls/hr IV ASDIRECTED [facility] Last Admin: 01/27/20 08:20 Dose: 15 mls/hr Propofol (Diprivan 100 Ml) Confirm Administered Dose 100 mls @ as directed .ROUTE .[facility] ONE Stop: 01/27/20 22:01 Last Admin: 01/27/20 22:05 Dose: Not Given Potassium Chloride 20 meq/Lidocaine HCl 2 ml/ Sodium Chloride 112 mls @ 56 mls/ hr IV Q2H [facility] Stop: 01/28/20 21:59 Last Admin: 01/28/20 20:47 Dose: 56 mls/hr Vancomycin HCl 1.5 gm/ Sodium (Chloride) 250 mls @ 166 mls/hr IV Q12H [facility] Potassium Chloride 20 meq/ (Premix) 100 mls @ 50 mls/hr IV Q2H [facility] Stop: 01/30/20 12:59 Last Admin: 01/30/20 12:20 Dose: 50 mls/hr Potassium Chloride 20 meq/ (Premix) 100 mls @ 50 mls/hr IV Q2H [facility] Stop: 01/30/20 19:59 Last Admin: 01/30/20 18:44 Dose: 50 mls/hr Lidocaine HCl (Xylocaine-Mpf 1%) 5 ml INJECT ONETIME ONE Stop: 01/26/20 13:06 Last Admin: 01/26/20 13:33 Dose: 5 ml Methylprednisolone Sodium Succinate (Solu-Medrol) 40 mg IVPUSH Q6H [facility] Last Admin: 01/29/20 08:27 Dose: 40 mg Methylprednisolone Sodium Succinate (Solu-Medrol) 40 mg IVPUSH Q12H [facility] Last Admin: 01/30/20 08:20 Dose: 40 mg Morphine Sulfate (Morphine) 1 - 2 mg IVPUSH Q2H PRN PRN Reason: Pain Last Admin: 01/26/20 22:37 Dose: 2 mg Pantoprazole Sodium (Protonix) 40 mg PO BIDAC [facility] Last Admin: 01/26/20 17:17 Dose: 40 mg Potassium Chloride (Klor-Con M20) 60 meq PO DAILY [facility] Sodium Chloride (Saline Flush) 10 ml FLUSH ASDIRECTED PRN PRN Reason: Keep Vein Open Last Admin: 01/26/20 10:41 Dose: 10 ml Spironolactone (Aldactone) 12.5 mg PO DAILY [facility] Tamsulosin HCl (Flomax) 0.8 mg PO DAILY [facility] - Exam Quality Assessment: Supplemental Oxygen (Ventilator), Urine Catheter, DVT Prophylaxis General: Sedated, Lethargic Lungs: Decreased Breath Sounds, Wheezing. No: Rales, Rhonchi, Rub Cardiovascular: Regular Rate, Regular Rhythm, No Murmurs GI/Abdominal Exam: Soft, Non-Tender, No Organomegaly, No Distention Extremities: Non-Tender, Pedal Edema Sepsis Event Note - Evaluation Sepsis Screening Result: No Definite Risk - Focused Exam Vital Signs: Vital Signs Temp Pulse Resp BP Pulse Ox 01/31/20 12:27 78 01/31/20 11:00 70 20 125/66 91 L 01/31/20 10:00 69 17 116/67 91 L 01/31/20 09:00 72 18 124/62 91 L 01/31/20 08:00 97.7 F 68 16 121/60 92 L 01/31/20 06:59 63 01/31/20 06:00 62 14 110/57 L 92 L 01/31/20 05:00 66 12 120/60 92 L 01/31/20 04:00 98.0 F 68 17 128/63 96 01/31/20 03:00 97.3 F 60 20 104/54 L 92 L 01/31/20 02:00 61 16 111/54 L 92 L 01/31/20 01:00 66 17 124/59 L 94 L Date Exam was Performed: 01/31/20 Time Exam was Performed: 12:31 - Problem List Review Problem List Initiated/Reviewed/Updated: Yes - My Orders Last 24 Hours: My Active Orders 01/31/20 07:08 Chest 1V Frontal [CR] DAILY 01/31/20 08:00 methylPREDNISolone Sod Succ [Solu-MEDROL] 40 mg IVPUSH Q24H 01/31/20 09:00 Potassium Chloride [KCL 20 MEQ in Water 100 ML] 20 meq Premix Bag 1 bag IV Q2H 01/31/20 14:00 Potassium Chloride Riders [KCL 40 MEQ in Water 100 ML] 40 meq Premix Bag 1 bag IV ONETIME 01/31/20 18:00 Furosemide [Lasix] 40 mg IVPUSH Q12H 01/31/20 20:00 Potassium Chloride Riders [KCL 40 MEQ in Water 100 ML] 40 meq Premix Bag 1 bag IV ONETIME 01/31/20 Lunch NPO [Nothing Per Oral Diet] [DIET] 02/01/20 05:00 Chest 1V Frontal [CR] DAILY BASIC METABOLIC PANEL,BMP [CHEM] Timed BLOOD GAS ARTERIAL [BG] Timed 02/02/20 05:00 Chest 1V Frontal [CR] DAILY 02/03/20 05:00 Chest 1V Frontal [CR] DAILY 02/04/20 05:00 Chest 1V Frontal [CR] DAILY 02/05/20 05:00 Chest 1V Frontal [CR] DAILY - Plan Plan:: ASSESSMENT AND PLAN DIASTOLIC CONGESTIVE HEART FAILURE AND COR PULMONALE-echocardiogram showed preserved left ventricular systolic function and elevated right-sided pressures. Continued good daily diuresis with current dose of furosemide, renal function has remained stable. -IV furosemide twice daily -Physical therapy consult BILATERAL PNEUMONIA -Biotic therapy as below ACUTE ON CHRONIC HYPOXIC AND HYPERCAPNIC RESPIRATORY FAILURE-Likley secondary to bilateral infiltrates noted on follow-up chest x-rays, blood cultures remain negative. Sputum culture growing alpha strep. He failed his spontaneous breathing trial today with increased respiratory rate and agitation. -Mechanical ventilation -Spontaneous breathing trial again in a.m. -IV antibiotic therapy with levofloxacin -Solu-Medrol 40 mg IV every 24 hours -May need to consider tracheostomy for ongoing management of obesity related hypoventilation and obstructive apnea MORBID OBESITY-BMI of 54 MAINTENANCE ISSUES -DVT prophylaxis; Lovenox 40 mg subcu daily -GI prophylaxis; Protonix 40 mg IV daily -Sauceda catheter; will be placed to monitor urine output now that he is intubated and in the ICU -Nutrition; n.p.o. -Nicotine dependence; nicotine patch CODE STATUS-FULL CODE ADMISSION STATUS-patient will be admitted to inpatient status, expect at least a 2 night hospital stay for evaluation and management of problems as outlined above. At the time of this admission I do not reasonably expected evaluation and management of this problem will require more than a 96 hour hospital stay. DISPOSITION-anticipate discharge to home after the hospital stay. PRIMARY CARE PROVIDER-Dr. Ro
[2020-01-31] MEDS: Potassium Chloride 20 MEQ, Lidocaine 1% 2 ML in Sodium Chloride 0.9% 100 ML IV SCH ×4 (14:40→22:21)
[2020-01-31] MEDS: Enoxaparin 40 MG/0.4 ML Syringe SUBCUT SCH (16:59)
[2020-02-01] MEDS: propofoL 100 ML IV SCH ×9 (01:12→22:23)
[2020-02-01] MEDS: Furosemide 40 MG/4 ML VIAL IVPUSH SCH (06:07)
[2020-02-01] MEDS: Fluticasone-Salmeterol 232-14 MCG Powder Inhalent INH SCH ×2 (07:34→21:13)
[2020-02-01] MEDS: Albuterol/Ipratropium 3.0-0.5 MG/3 ML Neb Soln INH SCH ×3 (07:34→21:15)
[2020-02-01] MEDS: Glycopyrrolate 15.6 MCG Cap.W.Dev Kit of 6 IH SCH ×2 (08:23→21:13)
[2020-02-01] MEDS: Levothyroxine 88 MCG Tab PO SCH (08:23)
[2020-02-01] MEDS: methylPREDNISolone Sodium Succinate 40 MG/1 ML SDV IVPUSH SCH (08:35)
[2020-02-01] MEDS: Pantoprazole 40 MG Vial IVPUSH SCH (08:40)
[2020-02-01] MEDS: Nicotine 21 MG/24 Hr Patch TRDERM SCH (08:43)
--- NOTE | 2020-02-01 09:19 | CR ---
CHEST: Portable 01/30/2020 at 4:41 AM CLINICAL HISTORY:Respiratory failure COMPARISON:01/29/2020 FINDINGS: Heart is enlarged. Pulmonary vascular clarity is cephalized. There is diffuse interstitial prominence. Some of this is chronic. There is some left lower lobe airspace disease and left effusion similar to prior study. Endotracheal tube has been advanced. It is approximately 4 cm from the mayra. Impression: Slight advancement of endotracheal tube Persistent vascular congestion bilateral infiltrate Persistent opacification the left lower lobe which is felt to be due to a combination of effusion, atelectasis and infiltrate
[2020-02-01] MEDS: Levofloxacin/Dextrose 5%-Water 750 MG in Premix Bag 1 BAG IV SCH (09:42)
[2020-02-01] MEDS: Heparin Sodium 5,000 UNITS in Sodium Chloride 0.9% 500 ML IV SCH (09:59)
--- NOTE | 2020-02-01 10:08 | CR ---
CHEST: Portable 01/31/2020 at 1:21 AM CLINICAL HISTORY:Respiratory failure COMPARISON:01/30/2020 FINDINGS: Endotracheal tube remains in mid trachea. Heart is enlarged. Pulmonary vascularity is cephalized. There is generalized interstitial prominence. There is persistent airspace disease in the left lower lobe similar to prior study. There is some increasing density in the right lung base compared to prior study this may represent effusion. IMPRESSION: Persistent vascular cephalization and diffuse interstitial prominence Persistent stable left lower lobe opacification New density in the right lung base may represent accumulating effusion
--- NOTE | 2020-02-01 10:11 | PCM.PN ---
- General Info Date of Service: 02/01/20 Subjective Update: There were no acute events overnight. Oxygenation had been stable overnight and he required only 35% FiO2. As the morning has progressed he has needed more support but did respond to increased tidal volume and increased PEEP. He has not had any fevers. Sedation was held this morning for a weaning trial. Unfortunately this did not last very long because his respiratory rate increased very quickly. Respiratory rate did return to normal after he was returned to assist control and sedation restarted. Patient remains intubated and despite the sedation being off was still fairly lethargic and not interactive. Functional Status: Reports: Other (intubated. sedation off but not interactive ) - Patient Data Vitals - Most Recent: Last Vital Signs Temp 35.6 C L 02/01/20 08:00 Pulse 71 02/01/20 07:35 Resp 16 02/01/20 10:00 BP 125/61 02/01/20 10:00 Pulse Ox 91 L 02/01/20 10:00 Weight - Most Recent: 176.3 kg I&O - Last 24 Hours: Intake & Output 01/31/20 02/01/20 02/01/20 22:59 06:59 14:59 Intake Total 224 999 Output Total 750 2250 Balance -526 -1251 Lab Results Last 24 Hours: Laboratory Results - last 24 hr 02/01/20 02/01/20 Range/Units 05:00 05:00 Puncture Site Line ABG pH 7.456 H (7.350-7.450) ABG pCO2 66.0 H (35.0-42.0) mmHg ABG pO2 66.0 L (75.0-100.0) mmHg ABG HCO3 45.8 H (22.0-26.0) mmol/L ABG Total CO2 41.2 H (23.0-27.0) mmol/L ABG O2 Saturation 92.8 L (95.0-98.0) % ABG O2 Content 15.0 (15.0-23.0) %vol ABG Base Excess 18.5 mm/L ABG Hemoglobin 11.8 L (13.5-18.0) g/dL ABG Oxyhemoglobin 89.8 % ABG Carboxyhemoglobin 2.1 H (0.0-1.6) % ABG Methemoglobin 1.1 % O2 Delivery Device Ventilator Oxygen Flow Rate L Sodium 144 (140-148) mmol/L Potassium 3.9 (3.6-5.2) mmol/L Chloride 100 (100-108) mmol/L Carbon Dioxide 44 H (21-32) mmol/L Anion Gap 3.9 L (5.0-14.0) mmol/L BUN 26 H (7-18) mg/dL Creatinine 1.0 (0.8-1.3) mg/dL Est Cr Clr Drug Dosing 87.91 mL/min Estimated GFR (MDRD) > 60 (>60) Glucose 97 (74-106) mg/dL Calcium 8.2 L (8.5-10.1) mg/dL Petey Results Last 24 Hours: Microbiology 01/27/20 07:31 Aerobic Blood Culture - Final Blood - Arterial Line - Abg NO GROWTH AFTER 5 DAYS Anaerobic Blood Culture - Final NO GROWTH AFTER 5 DAYS 01/27/20 07:30 Aerobic Blood Culture - Final Blood - A-Line NO GROWTH AFTER 5 DAYS Anaerobic Blood Culture - Final NO GROWTH AFTER 5 DAYS 01/26/20 10:33 Aerobic Blood Culture - Final Blood - Arm, Left NO GROWTH AFTER 5 DAYS Anaerobic Blood Culture - Final NO GROWTH AFTER 5 DAYS 01/26/20 10:20 Aerobic Blood Culture - Final Blood - Arm, Left NO GROWTH AFTER 5 DAYS Anaerobic Blood Culture - Final NO GROWTH AFTER 5 DAYS Med Orders - Current: Current Medications Acetaminophen (Tylenol) 650 mg PO Q4H PRN PRN Reason: Pain/Fever Albuterol (Ventolin Hfa) 0 gm INH Q4H PRN PRN Reason: Shortness of Breath Albuterol (Proventil Neb Soln) 2.5 mg NEB Q2H PRN PRN Reason: Shortness of Breath Last Admin: 01/28/20 15:08 Dose: 2.5 mg Albuterol/Ipratropium (Duoneb 3.0-0.5 Mg/3 Ml) 3 ml INH TIDRT [facility] Last Admin: 02/01/20 07:34 Dose: 3 ml Enoxaparin Sodium (Lovenox) 40 mg SUBCUT Q24H [facility] Last Admin: 01/31/20 16:59 Dose: 40 mg Glycopyrrolate (Seebri Neohaler) 15.6 mcg IH BIDRT [facility] Last Admin: 02/01/20 08:23 Dose: Not Given Hydromorphone HCl (Dilaudid) 0.5 mg IVPUSH Q2H PRN PRN Reason: Pain Propofol (Diprivan 100 Ml) 100 mls @ 5.443 mls/hr IV TITRATE [facility]; Protocol Last Titration: 02/01/20 09:05 Dose: 30 mcg/kg/min, 32.659 mls/hr Heparin Sodium (Porcine) 5,000 (units/ Sodium Chloride) 501 mls @ 1 mls/hr IV ASDIRECTED [facility] Last Admin: 02/01/20 09:59 Dose: 1 mls/hr Levofloxacin/Dextrose 750 mg/ (Premix) 150 mls @ 100 mls/hr IV Q24H [facility] Last Admin: 02/01/20 09:42 Dose: 100 mls/hr Levothyroxine Sodium (Synthroid) 88 mcg PO DAILY@0730 [facility] Last Admin: 02/01/20 08:23 Dose: Not Given Methylprednisolone Sodium Succinate (Solu-Medrol) 40 mg IVPUSH Q24H [facility] Last Admin: 02/01/20 08:35 Dose: 40 mg Nicotine (Habitrol) 21 mg TRDERM DAILY [facility] Last Admin: 02/01/20 08:43 Dose: 21 mg Nicotine Polacrilex (Nicorelief) 2 mg CHEW Q1H PRN PRN Reason: Other Ondansetron HCl (Zofran) 4 mg IV Q4H PRN PRN Reason: Nausea/Vomiting Pantoprazole Sodium (Protonix Iv) 40 mg IVPUSH DAILY [facility] Last Admin: 02/01/20 08:40 Dose: 40 mg Polyethylene Glycol (Miralax) 17 gm PO DAILY PRN PRN Reason: Constipation Fluticasone/Salmeterol (Fluticasone-Salmeterol 232-14 Mcg Powder Inha) 1 puff INH BIDRT [facility] Last Admin: 02/01/20 07:34 Dose: Not Given Sodium Chloride (Saline Flush) 10 ml FLUSH ASDIRECTED PRN PRN Reason: Keep Vein Open Discontinued Medications Albuterol/Ipratropium (Duoneb 3.0-0.5 Mg/3 Ml) 3 ml NEB ONETIME ONE Stop: 01/26/20 10:05 Last Admin: 01/26/20 10:38 Dose: 3 ml Aspirin (Halfprin) 81 mg PO DAILY [facility] Atorvastatin Calcium (Lipitor) 40 mg PO DAILY [facility] Finasteride (Proscar) 5 mg PO DAILY [facility] Furosemide (Lasix) 40 mg IVPUSH NOW ONE Stop: 01/26/20 11:51 Last Admin: 01/26/20 12:30 Dose: 40 mg Furosemide (Lasix) 40 mg IVPUSH NOW ONE Stop: 01/26/20 21:01 Last Admin: 01/26/20 21:19 Dose: 40 mg Furosemide (Lasix) 40 mg IVPUSH Q12H [facility] Stop: 01/31/20 09:00 Last Admin: 01/31/20 07:55 Dose: 40 mg Furosemide (Lasix) 40 mg IVPUSH Q12H [facility] Last Admin: 02/01/20 06:07 Dose: Not Given Heparin Sodium (Porcine) (Heparin Sodium) Confirm Administered Dose 5,000 units .ROUTE .STK-MED ONE Stop: 01/27/20 06:10 Last Admin: 01/27/20 07:12 Dose: Not Given Propofol (Diprivan 100 Ml) Confirm Administered Dose 100 mls @ as directed .ROUTE .STK-MED ONE Stop: 01/27/20 06:19 Last Admin: 01/27/20 07:12 Dose: Not Given Piperacillin/Tazobactam/ (Dextrose 3.375 gm/ Premix) 50 mls @ 100 mls/hr IV Q6H [facility] Last Admin: 01/30/20 08:23 Dose: 100 mls/hr Vancomycin HCl 2 gm/ Sodium (Chloride) 250 mls @ 166 mls/hr IV Q12H [facility] Last Admin: 01/28/20 22:22 Dose: 166 mls/hr Sodium Chloride (Normal Saline) 1,000 mls @ 0 mls/hr IV ASDIRECTED [facility] Last Admin: 01/27/20 08:19 Dose: 15 mls/hr Sodium Chloride (Normal Saline) 1,000 mls @ 0 mls/hr IV ASDIRECTED [facility] Last Admin: 01/27/20 08:20 Dose: 15 mls/hr Propofol (Diprivan 100 Ml) Confirm Administered Dose 100 mls @ as directed .ROUTE .STK-MED ONE Stop: 01/27/20 22:01 Last Admin: 01/27/20 22:05 Dose: Not Given Potassium Chloride 20 meq/Lidocaine HCl 2 ml/ Sodium Chloride 112 mls @ 56 mls/ hr IV Q2H [facility] Stop: 01/28/20 21:59 Last Admin: 01/28/20 20:47 Dose: 56 mls/hr Vancomycin HCl 1.5 gm/ Sodium (Chloride) 250 mls @ 166 mls/hr IV Q12H [facility] Potassium Chloride 20 meq/ (Premix) 100 mls @ 50 mls/hr IV Q2H [facility] Stop: 01/30/20 12:59 Last Admin: 01/30/20 12:20 Dose: 50 mls/hr Potassium Chloride 20 meq/ (Premix) 100 mls @ 50 mls/hr IV Q2H [facility] Stop: 01/30/20 19:59 Last Admin: 01/30/20 18:44 Dose: 50 mls/hr Potassium Chloride 20 meq/ (Premix) 100 mls @ 50 mls/hr IV Q2H [facility] Stop: 01/31/20 12:59 Last Admin: 01/31/20 12:00 Dose: 50 mls/hr Potassium Chloride 20 meq/Lidocaine HCl 2 ml/ Sodium Chloride 112 mls @ 56 mls/ hr IV Q2H [facility] Stop: 01/31/20 17:59 Last Admin: 01/31/20 17:00 Dose: 56 mls/hr Potassium Chloride 20 meq/Lidocaine HCl 2 ml/ Sodium Chloride 112 mls @ 56 mls/ hr IV Q2H [facility] Stop: 01/31/20 23:59 Last Admin: 01/31/20 22:21 Dose: 56 mls/hr Lidocaine HCl (Xylocaine-Mpf 1%) 5 ml INJECT ONETIME ONE Stop: 01/26/20 13:06 Last Admin: 01/26/20 13:33 Dose: 5 ml Methylprednisolone Sodium Succinate (Solu-Medrol) 40 mg IVPUSH Q6H [facility] Last Admin: 01/29/20 08:27 Dose: 40 mg Methylprednisolone Sodium Succinate (Solu-Medrol) 40 mg IVPUSH Q12H [facility] Last Admin: 01/30/20 08:20 Dose: 40 mg Morphine Sulfate (Morphine) 1 - 2 mg IVPUSH Q2H PRN PRN Reason: Pain Last Admin: 01/26/20 22:37 Dose: 2 mg Oxycodone/Acetaminophen (Percocet 325-5 Mg) 1 tab PO Q6H PRN PRN Reason: Pain (severe 7-10) Last Admin: 01/27/20 02:43 Dose: 1 tab Pantoprazole Sodium (Protonix) 40 mg PO BIDAC [facility] Last Admin: 01/26/20 17:17 Dose: 40 mg Potassium Chloride (Klor-Con M20) 60 meq PO DAILY [facility] Sodium Chloride (Saline Flush) 10 ml FLUSH ASDIRECTED PRN PRN Reason: Keep Vein Open Last Admin: 01/26/20 10:41 Dose: 10 ml Spironolactone (Aldactone) 12.5 mg PO DAILY [facility] Tamsulosin HCl (Flomax) 0.8 mg PO DAILY [facility] - Exam Quality Assessment: Supplemental Oxygen General: No Acute Distress, Lethargic. No: Alert HEENT: Pupils Equal Lungs: Normal Respiratory Effort, Decreased Breath Sounds (both bases). No: Wheezing Cardiovascular: Regular Rate, Regular Rhythm GI/Abdominal Exam: Soft, No Distention Extremities: No Pedal Edema. No: Increased Warmth Skin: Warm, Dry, Rash (venous stasis left lower leg and foot ) Psy/Mental Status: No: Alert, Agitated Sepsis Event Note - Evaluation Sepsis Screening Result: No Definite Risk - Focused Exam Vital Signs: Vital Signs Temp Pulse Resp BP Pulse Ox Pulse Ox 02/01/20 10:00 16 125/61 91 L 02/01/20 09:00 17 111/55 L 90 L 02/01/20 08:09 41 H 92 L 02/01/20 08:00 35.6 C L 14 101/58 L 89 L 02/01/20 07:35 71 92 L 02/01/20 07:00 70 14 100/55 L 92 L 02/01/20 06:00 75 19 102/58 L 91 L 02/01/20 05:00 76 21 H 109/57 L 93 L 02/01/20 04:00 81 16 102/54 L 91 L 02/01/20 03:00 37.1 C 76 17 101/54 L 91 L 02/01/20 02:00 85 16 115/61 92 L 02/01/20 01:00 83 12 104/54 L 91 L 02/01/20 00:00 37.1 C 85 19 102/55 L 90 L 01/31/20 23:00 88 20 102/56 L 91 L Date Exam was Performed: 02/01/20 Time Exam was Performed: 14:29 - Problem List Review Problem List Initiated/Reviewed/Updated: Yes - My Orders Last 24 Hours: My Active Orders 02/01/20 10:09 Initiate/Renew Non-Violent Restraints (All Ages) Q24H 02/02/20 05:00 BASIC METABOLIC PANEL,BMP [CHEM] Timed BLOOD GAS ARTERIAL [BG] Timed CBC W/O DIFF,HEMOGRAM [HEME] Timed (1) 02/02/20 07:30 Sauceda Catheter Insertion [Insert Urinary Catheter] [OM.PC] Q24H - Plan Plan:: ASSESSMENT AND PLAN DIASTOLIC CONGESTIVE HEART FAILURE AND COR PULMONALE-echocardiogram showed preserved left ventricular systolic function and elevated right-sided pressures. Excellent diuresis over the last few days. Kidney function stable. I suspect that the slight decline in his respiratory status is related to increasing fluid. -IV furosemide twice daily -Physical therapy consult BILATERAL PNEUMONIA-no significant fevers and white count normal. Culture did grow out alpha strep. -Continue levofloxacin ACUTE ON CHRONIC HYPOXIC AND HYPERCAPNIC RESPIRATORY FAILURE-Likely secondary to bilateral infiltrates and congestive heart failure. Not doing well with weaning trials despite his respiratory status being pretty stable. -Mechanical ventilation -Spontaneous breathing trial again in a.m. -IV antibiotic therapy with levofloxacin -Solu-Medrol 40 mg IV every 24 hours -May need to consider tracheostomy for ongoing management of obesity related hypoventilation and obstructive apnea MORBID OBESITY-BMI of 54 MAINTENANCE ISSUES -DVT prophylaxis; Lovenox 40 mg subcu daily -GI prophylaxis; Protonix 40 mg IV daily -Sauceda catheter; accurate I&O in a critical patient -Nutrition; n.p.o. -Nicotine dependence; nicotine patch ADMISSION STATUS-patient will be admitted to inpatient status, expect at least a 2 night hospital stay for evaluation and management of problems as outlined above. At the time of this admission I do not reasonably expected evaluation and management of this problem will require more than a 96 hour hospital stay. DISPOSITION-anticipate discharge to LTAC vs NH after the hospital stay. Michael Roman MD
--- NOTE | 2020-02-01 10:15 | CR ---
CHEST: Portable 02/01/2020 at 4:21 AM CLINICAL HISTORY:Respiratory failure, intubation COMPARISON:01/31/2020 FINDINGS: Heart is enlarged. Endotracheal tube remains in the midtrachea. Pulmonary vascularity is cephalized similar to prior study. There are bibasal densities similar to the prior study. Impression: Vascular congestion and persistent interstitial prominence similar to prior study Persistent bibasal densities felt to represent a combination of effusion and airspace disease
[2020-02-01] MEDS ORDERED: Furosemide 40 MG/4 ML VIAL IVPUSH ONE (14:15)
--- NOTE | 2020-02-01 14:42 | CR ---
CHEST: Portable 02/01/2020 at 148 CLINICAL HISTORY:Worsening hypoxia COMPARISON:Earlier same day FINDINGS: Endotracheal tube remains in place Heart is enlarged. Pulmonary vascularity is cephalized similar to prior study. There is diffuse increase in interstitial markings also similar to prior studies. There is some increasing density at the right lung base compared to the earlier study. This may represent increasing effusion and/or airspace disease. There is also similar but stable findings in the left lower lobe. IMPRESSION: Cardiac megaly with vascular cephalization and interstitial prominence similar to prior studies Increasing density at the right lung base may be effusion and/or airspace disease Persistent moderate airspace disease in the left lower lobe
[2020-02-01] MEDS: Enoxaparin 40 MG/0.4 ML Syringe SUBCUT SCH (15:41)
[2020-02-02] MEDS: propofoL 100 ML IV SCH ×8 (00:58→22:25)
--- NOTE | 2020-02-02 06:44 | PCM.PN ---
- General Info Date of Service: 02/02/20 Subjective Update: No acute events overnight. Good response to diuresis again yesterday and respiratory status has improved further. He remains intubated but is more alert and interactive today. He is doing well with his spontaneous breathing trial this morning. Vital signs have been stable. No fevers. Functional Status: Reports: Other (intubated and sedated ) - Review of Systems General: Denies: Fever - Patient Data Vitals - Most Recent: Last Vital Signs Temp 96.9 C H 02/02/20 04:00 Pulse 68 02/01/20 20:00 Resp 14 02/02/20 06:00 BP 119/58 L 02/02/20 06:00 Pulse Ox 94 L 02/02/20 06:00 Weight - Most Recent: 176.3 kg I&O - Last 24 Hours: Intake & Output 02/01/20 02/01/20 02/02/20 14:59 22:59 06:59 Intake Total 877 478 Output Total 1900 1050 Balance -1023 -572 Lab Results Last 24 Hours: Laboratory Results - last 24 hr 02/02/20 02/02/20 02/02/20 Range/Units 05:00 05:00 05:00 WBC 11.5 H (4.5-11.0) K/uL RBC 4.87 (4.30-5.90) M/uL Hgb 11.4 L (12.0-15.0) g/dL Hct 39.4 L (40.0-54.0) % MCV 81 (80-98) fL MCH 23 L (27-31) pg MCHC 29 L (32-36) % Plt Count 216 (150-400) K/uL Puncture Site Line ABG pH 7.465 H (7.350-7.450) ABG pCO2 60.6 H (35.0-42.0) mmHg ABG pO2 77.3 (75.0-100.0) mmHg ABG HCO3 43.0 H (22.0-26.0) mmol/L ABG Total CO2 38.5 H (23.0-27.0) mmol/L ABG O2 Saturation 95.4 (95.0-98.0) % ABG O2 Content 15.5 (15.0-23.0) %vol ABG Base Excess 16.4 mm/L ABG Hemoglobin 11.9 L (13.5-18.0) g/dL ABG Oxyhemoglobin 92.4 % ABG Carboxyhemoglobin 2.1 H (0.0-1.6) % ABG Methemoglobin 1 % O2 Delivery Device Ventilator Oxygen Flow Rate L Sodium 143 (140-148) mmol/L Potassium 3.0 L (3.6-5.2) mmol/L Chloride 100 (100-108) mmol/L Carbon Dioxide 40 H (21-32) mmol/L Anion Gap 6.0 (5.0-14.0) mmol/L BUN 29 H (7-18) mg/dL Creatinine 1.0 (0.8-1.3) mg/dL Est Cr Clr Drug Dosing 87.91 mL/min Estimated GFR (MDRD) > 60 (>60) Glucose 95 (74-106) mg/dL Calcium 8.1 L (8.5-10.1) mg/dL Petey Results Last 24 Hours: Microbiology 01/27/20 07:31 Aerobic Blood Culture - Final Blood - Arterial Line - Abg NO GROWTH AFTER 5 DAYS Anaerobic Blood Culture - Final NO GROWTH AFTER 5 DAYS 01/27/20 07:30 Aerobic Blood Culture - Final Blood - A-Line NO GROWTH AFTER 5 DAYS Anaerobic Blood Culture - Final NO GROWTH AFTER 5 DAYS Med Orders - Current: Current Medications Acetaminophen (Tylenol) 650 mg PO Q4H PRN PRN Reason: Pain/Fever Albuterol (Ventolin Hfa) 0 gm INH Q4H PRN PRN Reason: Shortness of Breath Albuterol (Proventil Neb Soln) 2.5 mg NEB Q2H PRN PRN Reason: Shortness of Breath Last Admin: 01/28/20 15:08 Dose: 2.5 mg Enoxaparin Sodium (Lovenox) 40 mg SUBCUT Q24H [facility] Last Admin: 02/01/20 15:41 Dose: 40 mg Glycopyrrolate (Seebri Neohaler) 15.6 mcg IH BIDRT [facility] Last Admin: 02/01/20 21:13 Dose: Not Given Hydromorphone HCl (Dilaudid) 0.5 mg IVPUSH Q2H PRN PRN Reason: Pain Propofol (Diprivan 100 Ml) 100 mls @ 5.443 mls/hr IV TITRATE [facility]; Protocol Last Admin: 02/02/20 06:13 Dose: 35 mcg/kg/min, 38.102 mls/hr Heparin Sodium (Porcine) 5,000 (units/ Sodium Chloride) 501 mls @ 1 mls/hr IV ASDIRECTED [facility] Last Admin: 02/01/20 09:59 Dose: 1 mls/hr Levofloxacin/Dextrose 750 mg/ (Premix) 150 mls @ 100 mls/hr IV Q24H [facility] Last Admin: 02/01/20 09:42 Dose: 100 mls/hr Levothyroxine Sodium (Synthroid) 88 mcg PO DAILY@0730 [facility] Last Admin: 02/01/20 08:23 Dose: Not Given Methylprednisolone Sodium Succinate (Solu-Medrol) 40 mg IVPUSH Q24H [facility] Last Admin: 02/01/20 08:35 Dose: 40 mg Nicotine (Habitrol) 21 mg TRDERM DAILY [facility] Last Admin: 02/01/20 08:43 Dose: 21 mg Nicotine Polacrilex (Nicorelief) 2 mg CHEW Q1H PRN PRN Reason: Other Ondansetron HCl (Zofran) 4 mg IV Q4H PRN PRN Reason: Nausea/Vomiting Pantoprazole Sodium (Protonix Iv) 40 mg IVPUSH DAILY [facility] Last Admin: 02/01/20 08:40 Dose: 40 mg Polyethylene Glycol (Miralax) 17 gm PO DAILY PRN PRN Reason: Constipation Fluticasone/Salmeterol (Fluticasone-Salmeterol 232-14 Mcg Powder Inha) 1 puff INH BIDRT [facility] Last Admin: 02/01/20 21:13 Dose: Not Given Sodium Chloride (Saline Flush) 10 ml FLUSH ASDIRECTED PRN PRN Reason: Keep Vein Open Discontinued Medications Albuterol/Ipratropium (Duoneb 3.0-0.5 Mg/3 Ml) 3 ml NEB ONETIME ONE Stop: 01/26/20 10:05 Last Admin: 01/26/20 10:38 Dose: 3 ml Albuterol/Ipratropium (Duoneb 3.0-0.5 Mg/3 Ml) 3 ml INH TIDRT [facility] Last Admin: 02/01/20 21:15 Dose: 3 ml Aspirin (Halfprin) 81 mg PO DAILY [facility] Atorvastatin Calcium (Lipitor) 40 mg PO DAILY [facility] Finasteride (Proscar) 5 mg PO DAILY [facility] Furosemide (Lasix) 40 mg IVPUSH NOW ONE Stop: 01/26/20 11:51 Last Admin: 01/26/20 12:30 Dose: 40 mg Furosemide (Lasix) 40 mg IVPUSH NOW ONE Stop: 01/26/20 21:01 Last Admin: 01/26/20 21:19 Dose: 40 mg Furosemide (Lasix) 40 mg IVPUSH Q12H [facility] Stop: 01/31/20 09:00 Last Admin: 01/31/20 07:55 Dose: 40 mg Furosemide (Lasix) 40 mg IVPUSH Q12H [facility] Last Admin: 02/01/20 06:07 Dose: Not Given Furosemide (Lasix) 40 mg IVPUSH ONETIME ONE Stop: 02/01/20 14:16 Last Admin: 02/01/20 14:33 Dose: 40 mg Heparin Sodium (Porcine) (Heparin Sodium) Confirm Administered Dose 5,000 units .ROUTE .STK-MED ONE Stop: 01/27/20 06:10 Last Admin: 01/27/20 07:12 Dose: Not Given Propofol (Diprivan 100 Ml) Confirm Administered Dose 100 mls @ as directed .ROUTE .STK-MED ONE Stop: 01/27/20 06:19 Last Admin: 01/27/20 07:12 Dose: Not Given Piperacillin/Tazobactam/ (Dextrose 3.375 gm/ Premix) 50 mls @ 100 mls/hr IV Q6H [facility] Last Admin: 01/30/20 08:23 Dose: 100 mls/hr Vancomycin HCl 2 gm/ Sodium (Chloride) 250 mls @ 166 mls/hr IV Q12H [facility] Last Admin: 01/28/20 22:22 Dose: 166 mls/hr Sodium Chloride (Normal Saline) 1,000 mls @ 0 mls/hr IV ASDIRECTED [facility] Last Admin: 01/27/20 08:19 Dose: 15 mls/hr Sodium Chloride (Normal Saline) 1,000 mls @ 0 mls/hr IV ASDIRECTED [facility] Last Admin: 01/27/20 08:20 Dose: 15 mls/hr Propofol (Diprivan 100 Ml) Confirm Administered Dose 100 mls @ as directed .ROUTE .STK-MED ONE Stop: 01/27/20 22:01 Last Admin: 01/27/20 22:05 Dose: Not Given Potassium Chloride 20 meq/Lidocaine HCl 2 ml/ Sodium Chloride 112 mls @ 56 mls/ hr IV Q2H [facility] Stop: 01/28/20 21:59 Last Admin: 01/28/20 20:47 Dose: 56 mls/hr Vancomycin HCl 1.5 gm/ Sodium (Chloride) 250 mls @ 166 mls/hr IV Q12H [facility] Potassium Chloride 20 meq/ (Premix) 100 mls @ 50 mls/hr IV Q2H [facility] Stop: 01/30/20 12:59 Last Admin: 01/30/20 12:20 Dose: 50 mls/hr Potassium Chloride 20 meq/ (Premix) 100 mls @ 50 mls/hr IV Q2H [facility] Stop: 01/30/20 19:59 Last Admin: 01/30/20 18:44 Dose: 50 mls/hr Potassium Chloride 20 meq/ (Premix) 100 mls @ 50 mls/hr IV Q2H [facility] Stop: 01/31/20 12:59 Last Admin: 01/31/20 12:00 Dose: 50 mls/hr Potassium Chloride 20 meq/Lidocaine HCl 2 ml/ Sodium Chloride 112 mls @ 56 mls/ hr IV Q2H [facility] Stop: 01/31/20 17:59 Last Admin: 01/31/20 17:00 Dose: 56 mls/hr Potassium Chloride 20 meq/Lidocaine HCl 2 ml/ Sodium Chloride 112 mls @ 56 mls/ hr IV Q2H [facility] Stop: 01/31/20 23:59 Last Admin: 01/31/20 22:21 Dose: 56 mls/hr Lidocaine HCl (Xylocaine-Mpf 1%) 5 ml INJECT ONETIME ONE Stop: 01/26/20 13:06 Last Admin: 01/26/20 13:33 Dose: 5 ml Methylprednisolone Sodium Succinate (Solu-Medrol) 40 mg IVPUSH Q6H [facility] Last Admin: 01/29/20 08:27 Dose: 40 mg Methylprednisolone Sodium Succinate (Solu-Medrol) 40 mg IVPUSH Q12H [facility] Last Admin: 01/30/20 08:20 Dose: 40 mg Morphine Sulfate (Morphine) 1 - 2 mg IVPUSH Q2H PRN PRN Reason: Pain Last Admin: 01/26/20 22:37 Dose: 2 mg Oxycodone/Acetaminophen (Percocet 325-5 Mg) 1 tab PO Q6H PRN PRN Reason: Pain (severe 7-10) Last Admin: 01/27/20 02:43 Dose: 1 tab Pantoprazole Sodium (Protonix) 40 mg PO BIDAC [facility] Last Admin: 01/26/20 17:17 Dose: 40 mg Potassium Chloride (Klor-Con M20) 60 meq PO DAILY [facility] Sodium Chloride (Saline Flush) 10 ml FLUSH ASDIRECTED PRN PRN Reason: Keep Vein Open Last Admin: 01/26/20 10:41 Dose: 10 ml Spironolactone (Aldactone) 12.5 mg PO DAILY [facility] Tamsulosin HCl (Flomax) 0.8 mg PO DAILY [facility] - Exam Quality Assessment: Supplemental Oxygen General: No Acute Distress. No: Alert, Cooperative Lungs: Normal Respiratory Effort, Decreased Breath Sounds (both bases) Cardiovascular: Regular Rate, Regular Rhythm GI/Abdominal Exam: Normal Bowel Sounds, Soft, No Distention Extremities: No Pedal Edema. No: Increased Warmth Skin: Warm, Dry, Rash (erythema left lower leg from mid son distally ) Psy/Mental Status: No: Alert, Agitated Sepsis Event Note - Evaluation Sepsis Screening Result: No Definite Risk - Focused Exam Vital Signs: Vital Signs Temp Pulse Resp BP BP Pulse Ox Pulse Ox 02/02/20 06:00 14 119/58 L 94 L 02/02/20 05:00 14 133/66 02/02/20 04:00 96.9 C H 14 106/54 L 02/02/20 03:00 14 137/63 02/02/20 02:00 14 123/59 L 02/02/20 01:00 14 123/59 L 94 L 02/02/20 00:00 36.3 C 14 116/58 L 94 L 02/01/20 23:00 14 115/56 L 94 L 02/01/20 22:00 35.2 C L 13 104/52 L 93 L 02/01/20 21:00 14 105/57 L 92 L 93 L 02/01/20 20:18 92 L 02/01/20 20:00 35.7 C L 68 119/60 101/58 L 02/01/20 19:00 14 100/55 L 93 L Date Exam was Performed: 02/02/20 Time Exam was Performed: 10:27 - Problem List Review Problem List Initiated/Reviewed/Updated: Yes - My Orders Last 24 Hours: My Active Orders 02/01/20 10:09 Initiate/Renew Non-Violent Restraints (All Ages) Q24H 02/02/20 06:45 Potassium Chloride 20 MEQ,Lidocaine 1% 2 ML IN 100ML NS @ 50 MLS/HR Potassium Chloride 20 meq Lidocaine 1% [Xylocaine 1%] 2 ml Sodium Chloride 0.9% [Normal Saline] 100 ml IV Q2H 02/02/20 07:00 Albuterol/Ipratropium [DuoNeb 3.0-0.5 MG/3 ML] 3 ml INH QIDRT 02/02/20 07:30 Sauceda Catheter Insertion [Insert Urinary Catheter] [OM.PC] Q24H 02/02/20 08:00 Furosemide [Lasix] 40 mg IVPUSH Q12H 02/03/20 05:00 BASIC METABOLIC PANEL,BMP [CHEM] Timed BLOOD GAS ARTERIAL [BG] Timed CBC W/O DIFF,HEMOGRAM [HEME] Timed (1) - Plan Plan:: ASSESSMENT AND PLAN DIASTOLIC CONGESTIVE HEART FAILURE AND COR PULMONALE-echocardiogram showed preserved left ventricular systolic function and elevated right-sided pressures. Excellent diuresis during the course of the hospital stay. -IV furosemide twice daily -Physical therapy consult BILATERAL PNEUMONIA-no significant fevers and white count normal. Culture did grow out alpha strep. -Continue levofloxacin ACUTE ON CHRONIC HYPOXIC AND HYPERCAPNIC RESPIRATORY FAILURE-Likely secondary to bilateral infiltrates and congestive heart failure. Doing much better with the spontaneous breathing trial this morning as volume status is improving. -Plan to continue the breathing trial as long as he can tolerate it today and then rest with mechanical ventilation overnight -Spontaneous breathing trial again in a.m. -IV antibiotic therapy with levofloxacin -Solu-Medrol 40 mg IV every 24 hours -May need to consider tracheostomy for ongoing management of obesity related hypoventilation and obstructive apnea MORBID OBESITY-BMI of 54 MAINTENANCE ISSUES -DVT prophylaxis; Lovenox 40 mg subcu daily -GI prophylaxis; Protonix 40 mg IV daily -Sauceda catheter; accurate I&O in a critical patient -Nutrition; n.p.o. -Nicotine dependence; nicotine patch DISPOSITION-anticipate discharge to LTAC vs NH after the hospital stay. Michael Roman MD
[2020-02-02] MEDS: Albuterol/Ipratropium 3.0-0.5 MG/3 ML Neb Soln INH SCH ×4 (07:00→21:46)
[2020-02-02] MEDS: Fluticasone-Salmeterol 232-14 MCG Powder Inhalent INH SCH ×2 (07:01→20:09)
[2020-02-02] MEDS: Glycopyrrolate 15.6 MCG Cap.W.Dev Kit of 6 IH SCH ×2 (07:01→20:10)
[2020-02-02] MEDS: Levothyroxine 88 MCG Tab PO SCH (07:51)
[2020-02-02] MEDS: Potassium Chloride 20 MEQ, Lidocaine 1% 2 ML in Sodium Chloride 0.9% 100 ML IV SCH ×2 (08:17→11:20)
[2020-02-02] MEDS: Furosemide 40 MG/4 ML VIAL IVPUSH SCH ×2 (08:28→20:06)
[2020-02-02] MEDS: methylPREDNISolone Sodium Succinate 40 MG/1 ML SDV IVPUSH SCH (08:33)
[2020-02-02] MEDS: Pantoprazole 40 MG Vial IVPUSH SCH (08:44)
[2020-02-02] MEDS: Nicotine 21 MG/24 Hr Patch TRDERM SCH (08:50)
--- NOTE | 2020-02-02 09:41 | CR ---
CHEST: Portable 02/02/2020 2:45 AM CLINICAL HISTORY:Respiratory failure COMPARISON:02/01/2020 FINDINGS: Endotracheal tube remains in the midtrachea. There are bilateral pleural effusions. There is some left lower lobe airspace disease. Lung markings have decreased slightly since prior studies vascularity is normal. Impression: Decrease in vascular congestion and increased lung markings since prior study Stable bilateral pleural effusions Persistent airspace disease in the left lower lobe.
[2020-02-02] MEDS: Levofloxacin/Dextrose 5%-Water 750 MG in Premix Bag 1 BAG IV SCH (10:41)
[2020-02-02] MEDS: Heparin Sodium 5,000 UNITS in Sodium Chloride 0.9% 500 ML IV SCH (13:12)
[2020-02-02] MEDS: Enoxaparin 40 MG/0.4 ML Syringe SUBCUT SCH (15:20)
[2020-02-03] MEDS: propofoL 100 ML IV SCH ×3 (01:30→06:15)
[2020-02-03] MEDS ORDERED: Lidocaine 1% 2 ML ONE (06:35)
[2020-02-03] MEDS ORDERED: Potassium Chloride 100 ML ONE (06:35)
[2020-02-03] MEDS: Potassium Chloride 20 MEQ, Lidocaine 1% 2 ML in Sodium Chloride 0.9% 100 ML IV SCH ×5 (06:40→17:17)
[2020-02-03] MEDS: Albuterol/Ipratropium 3.0-0.5 MG/3 ML Neb Soln INH SCH ×4 (07:15→20:55)
[2020-02-03] MEDS: Levothyroxine 88 MCG Tab PO SCH (08:05)
[2020-02-03] MEDS: Furosemide 40 MG/4 ML VIAL IVPUSH SCH ×2 (08:05→20:51)
[2020-02-03] MEDS: methylPREDNISolone Sodium Succinate 40 MG/1 ML SDV IVPUSH SCH (08:09)
[2020-02-03] MEDS: Nicotine 21 MG/24 Hr Patch TRDERM SCH (08:11)
[2020-02-03] MEDS: Pantoprazole 40 MG Vial IVPUSH SCH (08:15)
[2020-02-03] MEDS: Glycopyrrolate 15.6 MCG Cap.W.Dev Kit of 6 IH SCH ×2 (08:18→20:51)
[2020-02-03] MEDS: Fluticasone-Salmeterol 232-14 MCG Powder Inhalent INH SCH ×2 (08:18→20:53)
--- NOTE | 2020-02-03 09:10 | PCM.PN ---
- General Info Date of Service: 02/03/20 Subjective Update: No acute events overnight. Ongoing excellent response to diuresis. Patient did well with his spontaneous breathing trial this morning and was successfully extubated. Respiratory status has been stable on 3 L of supplemental oxygen. He has been following commands. He is alert and interactive. He has not had any fevers. Cultures have all been negative. Kidney function stable. Potassium was low this morning and supplementation has been started. - Review of Systems General: Denies: Fever - Patient Data Vitals - Most Recent: Last Vital Signs Temp 36.1 C 02/03/20 07:00 Pulse 78 02/02/20 18:00 Resp 27 H 02/03/20 08:00 BP 119/55 L 02/03/20 08:00 Pulse Ox 90 L 02/03/20 08:00 Weight - Most Recent: 176.3 kg I&O - Last 24 Hours: Intake & Output 02/02/20 02/03/20 02/03/20 22:59 06:59 14:59 Intake Total 346 Output Total 1375 Balance -1029 Lab Results Last 24 Hours: Laboratory Results - last 24 hr 02/03/20 02/03/20 02/03/20 Range/Units 05:00 05:00 05:00 WBC 12.0 H (4.5-11.0) K/uL RBC 4.88 (4.30-5.90) M/uL Hgb 11.4 L (12.0-15.0) g/dL Hct 39.0 L (40.0-54.0) % MCV 80 (80-98) fL MCH 23 L (27-31) pg MCHC 29 L (32-36) % Plt Count 210 (150-400) K/uL Puncture Site A-line ABG pH 7.462 H (7.350-7.450) ABG pCO2 58.9 H (35.0-42.0) mmHg ABG pO2 73.3 L (75.0-100.0) mmHg ABG HCO3 41.5 H (22.0-26.0) mmol/L ABG Total CO2 37.3 H (23.0-27.0) mmol/L ABG O2 Saturation 94.6 L (95.0-98.0) % ABG O2 Content 15.1 (15.0-23.0) %vol ABG Base Excess 15.2 mm/L ABG Hemoglobin 11.7 L (13.5-18.0) g/dL ABG Oxyhemoglobin 91.7 % ABG Carboxyhemoglobin 2.1 H (0.0-1.6) % ABG Methemoglobin 1.0 % Ruddy Test N/a O2 Delivery Device Ventilator Oxygen Flow Rate L Sodium 144 (140-148) mmol/L Potassium 2.9 L* (3.6-5.2) mmol/L Chloride 101 (100-108) mmol/L Carbon Dioxide 41 H (21-32) mmol/L Anion Gap 4.9 L (5.0-14.0) mmol/L BUN 26 H (7-18) mg/dL Creatinine 0.9 (0.8-1.3) mg/dL Est Cr Clr Drug Dosing 97.68 mL/min Estimated GFR (MDRD) > 60 (>60) Glucose 90 (74-106) mg/dL Calcium 8.3 L (8.5-10.1) mg/dL Med Orders - Current: Current Medications Acetaminophen (Tylenol) 650 mg PO Q4H PRN PRN Reason: Pain/Fever Albuterol (Ventolin Hfa) 0 gm INH Q4H PRN PRN Reason: Shortness of Breath Albuterol (Proventil Neb Soln) 2.5 mg NEB Q2H PRN PRN Reason: Shortness of Breath Last Admin: 01/28/20 15:08 Dose: 2.5 mg Documented by: Albuterol/Ipratropium (Duoneb 3.0-0.5 Mg/3 Ml) 3 ml INH QIDRT COUNTS INCLUDE 234 BEDS AT THE [facility] Last Admin: 02/03/20 07:15 Dose: 3 ml Documented by: Enoxaparin Sodium (Lovenox) 40 mg SUBCUT Q24H COUNTS INCLUDE 234 BEDS AT THE [facility] Last Admin: 02/02/20 15:20 Dose: 40 mg Documented by: Furosemide (Lasix) 40 mg IVPUSH Q12H COUNTS INCLUDE 234 BEDS AT THE [facility] Last Admin: 02/03/20 08:05 Dose: 40 mg Documented by: Glycopyrrolate (Seebri Neohaler) 15.6 mcg IH BIDRT COUNTS INCLUDE 234 BEDS AT THE [facility] Last Admin: 02/03/20 08:18 Dose: Not Given Documented by: Hydromorphone HCl (Dilaudid) 0.5 mg IVPUSH Q2H PRN PRN Reason: Pain Propofol (Diprivan 100 Ml) 100 mls @ 5.443 mls/hr IV TITRATE COUNTS INCLUDE 234 BEDS AT THE [facility]; Protocol Last Admin: 02/03/20 01:30 Dose: 35 mcg/kg/min, 38.102 mls/hr Documented by: Heparin Sodium (Porcine) 5,000 (units/ Sodium Chloride) 501 mls @ 1 mls/hr IV ASDIRECTED COUNTS INCLUDE 234 BEDS AT THE [facility] Last Admin: 02/02/20 13:12 Dose: 1 mls/hr Documented by: Levofloxacin/Dextrose 750 mg/ (Premix) 150 mls @ 100 mls/hr IV Q24H COUNTS INCLUDE 234 BEDS AT THE [facility] Last Admin: 02/02/20 10:41 Dose: 100 mls/hr Documented by: Potassium Chloride 20 meq/Lidocaine HCl 2 ml/ Sodium Chloride 112 mls @ 56 mls/hr IV Q2H COUNTS INCLUDE 234 BEDS AT THE [facility] Stop: 02/03/20 10:29 Levothyroxine Sodium (Synthroid) 88 mcg PO DAILY@0730 COUNTS INCLUDE 234 BEDS AT THE [facility] Last Admin: 02/03/20 08:05 Dose: Not Given Documented by: Methylprednisolone Sodium Succinate (Solu-Medrol) 40 mg IVPUSH Q24H COUNTS INCLUDE 234 BEDS AT THE [facility] Last Admin: 02/03/20 08:09 Dose: 40 mg Documented by: Nicotine (Habitrol) 21 mg TRDERM DAILY COUNTS INCLUDE 234 BEDS AT THE [facility] Last Admin: 02/03/20 08:11 Dose: 21 mg Documented by: Nicotine Polacrilex (Nicorelief) 2 mg CHEW Q1H PRN PRN Reason: Other Ondansetron HCl (Zofran) 4 mg IV Q4H PRN PRN Reason: Nausea/Vomiting Pantoprazole Sodium (Protonix Iv) 40 mg IVPUSH DAILY COUNTS INCLUDE 234 BEDS AT THE [facility] Last Admin: 02/03/20 08:15 Dose: 40 mg Documented by: Polyethylene Glycol (Miralax) 17 gm PO DAILY PRN PRN Reason: Constipation Fluticasone/Salmeterol (Fluticasone-Salmeterol 232-14 Mcg Powder Inha) 1 puff INH BIDRT COUNTS INCLUDE 234 BEDS AT THE [facility] Last Admin: 02/03/20 08:18 Dose: Not Given Documented by: Sodium Chloride (Saline Flush) 10 ml FLUSH ASDIRECTED PRN PRN Reason: Keep Vein Open Discontinued Medications Albuterol/Ipratropium (Duoneb 3.0-0.5 Mg/3 Ml) 3 ml NEB ONETIME ONE Stop: 01/26/20 10:05 Last Admin: 01/26/20 10:38 Dose: 3 ml Documented by: Albuterol/Ipratropium (Duoneb 3.0-0.5 Mg/3 Ml) 3 ml INH TIDRT COUNTS INCLUDE 234 BEDS AT THE [facility] Last Admin: 02/01/20 21:15 Dose: 3 ml Documented by: Aspirin (Halfprin) 81 mg PO DAILY COUNTS INCLUDE 234 BEDS AT THE [facility] Atorvastatin Calcium (Lipitor) 40 mg PO DAILY COUNTS INCLUDE 234 BEDS AT THE [facility] Finasteride (Proscar) 5 mg PO DAILY COUNTS INCLUDE 234 BEDS AT THE [facility] Furosemide (Lasix) 40 mg IVPUSH NOW ONE Stop: 01/26/20 11:51 Last Admin: 01/26/20 12:30 Dose: 40 mg Documented by: Furosemide (Lasix) 40 mg IVPUSH NOW ONE Stop: 01/26/20 21:01 Last Admin: 01/26/20 21:19 Dose: 40 mg Documented by: Furosemide (Lasix) 40 mg IVPUSH Q12H COUNTS INCLUDE 234 BEDS AT THE [facility] Stop: 01/31/20 09:00 Last Admin: 01/31/20 07:55 Dose: 40 mg Documented by: Furosemide (Lasix) 40 mg IVPUSH Q12H COUNTS INCLUDE 234 BEDS AT [facility] Last Admin: 02/01/20 06:07 Dose: Not Given Documented by: Furosemide (Lasix) 40 mg IVPUSH ONETIME ONE Stop: 02/01/20 14:16 Last Admin: 02/01/20 14:33 Dose: 40 mg Documented by: Heparin Sodium (Porcine) (Heparin Sodium) Confirm Administered Dose 5,000 units .ROUTE .STK-MED ONE Stop: 01/27/20 06:10 Last Admin: 01/27/20 07:12 Dose: Not Given Documented by: Propofol (Diprivan 100 Ml) Confirm Administered Dose 100 mls @ as directed .ROUTE .STK-MED ONE Stop: 01/27/20 06:19 Last Admin: 01/27/20 07:12 Dose: Not Given Documented by: Piperacillin/Tazobactam/ (Dextrose 3.375 gm/ Premix) 50 mls @ 100 mls/hr IV Q6H COUNTS INCLUDE 234 BEDS AT THE [facility] Last Admin: 01/30/20 08:23 Dose: 100 mls/hr Documented by: Vancomycin HCl 2 gm/ Sodium (Chloride) 250 mls @ 166 mls/hr IV Q12H COUNTS INCLUDE 234 BEDS AT THE [facility] Last Admin: 01/28/20 22:22 Dose: 166 mls/hr Documented by: Sodium Chloride (Normal Saline) 1,000 mls @ 0 mls/hr IV ASDIRECTED COUNTS INCLUDE 234 BEDS AT THE [facility] Last Admin: 01/27/20 08:19 Dose: 15 mls/hr Documented by: Sodium Chloride (Normal Saline) 1,000 mls @ 0 mls/hr IV ASDIRECTED EVGENY Last Admin: 01/27/20 08:20 Dose: 15 mls/hr Documented by: Propofol (Diprivan 100 Ml) Confirm Administered Dose 100 mls @ as directed .ROUTE .STK-MED ONE Stop: 01/27/20 22:01 Last Admin: 01/27/20 22:05 Dose: Not Given Documented by: Potassium Chloride 20 meq/Lidocaine HCl 2 ml/ Sodium Chloride 112 mls @ 56 mls/hr IV Q2H COUNTS INCLUDE 234 BEDS AT [facility] Stop: 01/28/20 21:59 Last Admin: 01/28/20 20:47 Dose: 56 mls/hr Documented by: Vancomycin HCl 1.5 gm/ Sodium (Chloride) 250 mls @ 166 mls/hr IV Q12H COUNTS INCLUDE 234 BEDS AT THE [facility] Potassium Chloride 20 meq/ (Premix) 100 mls @ 50 mls/hr IV Q2H COUNTS INCLUDE 234 BEDS AT [facility] Stop: 01/30/20 12:59 Last Admin: 01/30/20 12:20 Dose: 50 mls/hr Documented by: Potassium Chloride 20 meq/ (Premix) 100 mls @ 50 mls/hr IV Q2H COUNTS INCLUDE 234 BEDS AT [facility] Stop: 01/30/20 19:59 Last Admin: 01/30/20 18:44 Dose: 50 mls/hr Documented by: Potassium Chloride 20 meq/ (Premix) 100 mls @ 50 mls/hr IV Q2H COUNTS INCLUDE 234 BEDS AT [facility] Stop: 01/31/20 12:59 Last Admin: 01/31/20 12:00 Dose: 50 mls/hr Documented by: Potassium Chloride 20 meq/Lidocaine HCl 2 ml/ Sodium Chloride 112 mls @ 56 mls/hr IV Q2H COUNTS INCLUDE 234 BEDS AT [facility] Stop: 01/31/20 17:59 Last Admin: 01/31/20 17:00 Dose: 56 mls/hr Documented by: Potassium Chloride 20 meq/Lidocaine HCl 2 ml/ Sodium Chloride 112 mls @ 56 mls/hr IV Q2H COUNTS INCLUDE 234 BEDS AT [facility] Stop: 01/31/20 23:59 Last Admin: 01/31/20 22:21 Dose: 56 mls/hr Documented by: Potassium Chloride 20 meq/Lidocaine HCl 2 ml/ Sodium Chloride 112 mls @ 50 mls/hr IV Q2H COUNTS INCLUDE 234 BEDS AT [facility] Stop: 02/02/20 10:44 Last Admin: 02/02/20 11:20 Dose: 50 mls/hr Documented by: Lidocaine HCl (Xylocaine-Mpf 1%) Confirm Administered Dose 2 mls @ as directed .ROUTE .STK-MED ONE Stop: 02/03/20 06:36 Last Admin: 02/03/20 08:17 Dose: Not Given Documented by: Potassium Chloride (Kcl 20 Meq In Water 100 Ml) Confirm Administered Dose 100 mls @ as directed .ROUTE .STK-MED ONE Stop: 02/03/20 06:36 Last Admin: 02/03/20 08:17 Dose: Not Given Documented by: Lidocaine HCl (Xylocaine-Mpf 1%) 5 ml INJECT ONETIME ONE Stop: 01/26/20 13:06 Last Admin: 01/26/20 13:33 Dose: 5 ml Documented by: Methylprednisolone Sodium Succinate (Solu-Medrol) 40 mg IVPUSH Q6H COUNTS INCLUDE 234 BEDS AT THE [facility] Last Admin: 01/29/20 08:27 Dose: 40 mg Documented by: Methylprednisolone Sodium Succinate (Solu-Medrol) 40 mg IVPUSH Q12H COUNTS INCLUDE 234 BEDS AT THE [facility] Last Admin: 01/30/20 08:20 Dose: 40 mg Documented by: Morphine Sulfate (Morphine) 1 - 2 mg IVPUSH Q2H PRN PRN Reason: Pain Last Admin: 01/26/20 22:37 Dose: 2 mg Documented by: Oxycodone/Acetaminophen (Percocet 325-5 Mg) 1 tab PO Q6H PRN PRN Reason: Pain (severe 7-10) Last Admin: 01/27/20 02:43 Dose: 1 tab Documented by: Pantoprazole Sodium (Protonix) 40 mg PO BIDAC COUNTS INCLUDE 234 BEDS AT THE [facility] Last Admin: 01/26/20 17:17 Dose: 40 mg Documented by: Potassium Chloride (Klor-Con M20) 60 meq PO DAILY COUNTS INCLUDE 234 BEDS AT THE [facility] Sodium Chloride (Saline Flush) 10 ml FLUSH ASDIRECTED PRN PRN Reason: Keep Vein Open Last Admin: 01/26/20 10:41 Dose: 10 ml Documented by: Spironolactone (Aldactone) 12.5 mg PO DAILY COUNTS INCLUDE 234 BEDS AT THE [facility] Tamsulosin HCl (Flomax) 0.8 mg PO DAILY EVGENY - Exam Quality Assessment: Supplemental Oxygen General: Alert, Cooperative, No Acute Distress HEENT: Pupils Equal Lungs: Normal Respiratory Effort, Decreased Breath Sounds (both bases). No: Crackles, Wheezing Cardiovascular: Regular Rate, Regular Rhythm GI/Abdominal Exam: Normal Bowel Sounds, Soft, No Distention Extremities: No Pedal Edema. No: Increased Warmth Skin: Warm, Dry, Rash (venous stasis left lower leg ) Psy/Mental Status: Alert. No: Agitated Sepsis Event Note - Evaluation Sepsis Screening Result: No Definite Risk - Focused Exam Vital Signs: Vital Signs Temp Resp BP Pulse Ox 02/03/20 08:00 27 H 119/55 L 90 L 02/03/20 07:00 36.1 C 14 108/54 L 90 L 02/03/20 03:00 14 98/51 L 95 02/03/20 02:00 22 H 107/54 L 96 02/03/20 01:00 14 114/58 L 93 L 02/03/20 00:00 36.3 C 16 121/57 L 94 L 02/02/20 23:00 16 113/55 L 94 L 02/02/20 22:00 14 102/56 L 90 L Date Exam was Performed: 02/03/20 Time Exam was Performed: 14:48 - Problem List Review Problem List Initiated/Reviewed/Updated: Yes - My Orders Last 24 Hours: My Active Orders 02/03/20 06:30 Potassium Chloride 20 meq Lidocaine 1% [Xylocaine 1%] 2 ml Sodium Chloride 0.9% [Normal Saline] 100 ml IV Q2H 02/03/20 15:00 Potassium Chloride 20 MEQ,Lidocaine 1% 2 ML IN 100ML NS @ 50 MLS/HR Potassium Chloride 20 meq Lidocaine 1% [Xylocaine 1%] 2 ml Sodium Chloride 0.9% [Normal Saline] 100 ml IV Q2H 02/03/20 22:00 POTASSIUM,K [CHEM] Timed 02/04/20 05:00 BASIC METABOLIC PANEL,BMP [CHEM] Timed BLOOD GAS ARTERIAL [BG] Timed CBC W/O DIFF,HEMOGRAM [HEME] Timed (1) 02/04/20 07:30 Sauceda Catheter Insertion [Insert Urinary Catheter] [OM.PC] Q24H - Plan Plan:: ASSESSMENT AND PLAN DIASTOLIC CONGESTIVE HEART FAILURE AND COR PULMONALE-echocardiogram showed preserved left ventricular systolic function and elevated right-sided pressures. Excellent diuresis throughout the hospital stay. Kidney function has remained stable. -IV furosemide twice daily until kidney function starts to decline -Restart medical management now that he is extubated -Physical therapy consult BILATERAL PNEUMONIA-no significant fevers and white count normal. Culture did grow out alpha strep. -Continue levofloxacin for total of 8 days ACUTE ON CHRONIC HYPOXIC AND HYPERCAPNIC RESPIRATORY FAILURE-Likely secondary to bilateral infiltrates and congestive heart failure. Extubated this morning. -IV antibiotic therapy with levofloxacin -Solu-Medrol 40 mg IV every 24 hours MORBID OBESITY-BMI of 54 MAINTENANCE ISSUES -DVT prophylaxis; Lovenox 40 mg subcu daily -GI prophylaxis; Protonix 40 mg IV daily -Sauceda catheter; accurate I&O in a critical patient -Nutrition; start clear liquids -Nicotine dependence; nicotine patch DISPOSITION-anticipate discharge to LTAC vs NH after the hospital stay. Michael Roman MD
[2020-02-03] MEDS: Levofloxacin/Dextrose 5%-Water 750 MG in Premix Bag 1 BAG IV SCH (09:27)
--- NOTE | 2020-02-03 10:05 | CR ---
CHEST: Portable 02/03/2020 at 2:08 AM CLINICAL HISTORY:Respiratory failure COMPARISON:02/02/2020 FINDINGS: Endotracheal tube is in the mid trachea. A slightly higher than prior study. Some of this difference may be due to patient angle. Pulmonary vascularity is normal. There is small bibasal effusions. The lung markings have diminished slightly since prior study. Impression: Resolving bilateral infiltrates Small bibasal effusions Endotracheal tube in mid trachea
[2020-02-03] MEDS: HYDROmorphone 0.5 MG/0.5 ML Syringe IVPUSH PRN ×3 (10:14→22:05)
[2020-02-03] MEDS: Enoxaparin 40 MG/0.4 ML Syringe SUBCUT SCH (15:42)
[2020-02-03] MEDS: atorvaSTATin 20 MG Tab PO SCH (20:55)
[2020-02-03] MEDS: oxyCODONE 5 MG Tab PO PRN ×2 (21:09→22:17)
[2020-02-04] MEDS: HYDROmorphone 0.5 MG/0.5 ML Syringe IVPUSH PRN ×2 (00:15→02:50)
[2020-02-04] MEDS ORDERED: Potassium Chloride 20 MEQ, Lidocaine 1% 2 ML in Sodium Chloride 0.9% 100 ML IV SCH (01:00)
[2020-02-04] MEDS ORDERED: LIDOCAINE 1% IV ONE (01:30)
[2020-02-04] MEDS ORDERED: POTASSIUM CHLORIDE RIDERS IV ONE (01:30)
[2020-02-04] MEDS ORDERED: Potassium Chloride 20 MEQ in Premix Bag 2 BAG IV ONE (01:56)
[2020-02-04] MEDS: POTASSIUM CHLORIDE INJECT SCH ×2 (02:21→04:45)
[2020-02-04] MEDS: LIDOCAINE 1% INJECT SCH ×2 (02:21→04:45)
[2020-02-04] MEDS ORDERED: Potassium Chloride 100 ML IV SCH (02:30)
[2020-02-04] MEDS: oxyCODONE 5 MG Tab PO PRN ×2 (03:46→21:05)
[2020-02-04] MEDS: Albuterol/Ipratropium 3.0-0.5 MG/3 ML Neb Soln INH SCH ×4 (07:00→21:05)
[2020-02-04] MEDS: Glycopyrrolate 15.6 MCG Cap.W.Dev Kit of 6 IH SCH ×2 (07:00→21:06)
[2020-02-04] MEDS: Fluticasone-Salmeterol 232-14 MCG Powder Inhalent INH SCH ×2 (07:00→21:05)
[2020-02-04] MEDS: methylPREDNISolone Sodium Succinate 40 MG/1 ML SDV IVPUSH SCH (07:55)
[2020-02-04] MEDS: Furosemide 40 MG/4 ML VIAL IVPUSH SCH ×2 (07:55→21:06)
[2020-02-04] MEDS: Levothyroxine 88 MCG Tab PO SCH (07:55)
[2020-02-04] MEDS: Pantoprazole 40 MG Tab.CR PO SCH (07:55)
[2020-02-04] MEDS: Tamsulosin 0.4 MG Cap.ER PO SCH (09:29)
[2020-02-04] MEDS: Finasteride 5 MG Tab PO SCH (09:29)
[2020-02-04] MEDS: Potassium Chloride 20 MEQ Tab.ER PO SCH ×2 (09:29→21:06)
[2020-02-04] MEDS: Aspirin 81 MG Tab.Chew PO SCH (09:29)
[2020-02-04] MEDS: Spironolactone 25 MG Tab PO SCH (09:30)
[2020-02-04] MEDS: Nicotine 21 MG/24 Hr Patch TRDERM SCH (09:30)
[2020-02-04] MEDS: Levofloxacin/Dextrose 5%-Water 750 MG in Premix Bag 1 BAG IV SCH (09:33)
--- NOTE | 2020-02-04 09:56 | PCM.PN ---
- General Info Date of Service: 02/04/20 Subjective Update: No acute events overnight. Good response to diuresis again. Blood pressures are on the lower side of normal. Kidney function remained stable. No fevers. Blood gases showed normal pH and persistent but stable elevation of PCO2. He remains quite weak but otherwise seems to be getting better. No complaints of chest pain or abdominal pain. Functional Status: Reports: Pain Controlled, Tolerating Diet - Review of Systems General: Reports: Weakness. Denies: Fever - Patient Data Vitals - Most Recent: Last Vital Signs Temp 36 C L 02/04/20 09:00 Pulse 80 02/04/20 09:00 Resp 22 H 02/04/20 09:00 BP 102/50 L 02/04/20 09:00 Pulse Ox 89 L 02/04/20 09:00 Weight - Most Recent: 176.3 kg I&O - Last 24 Hours: Intake & Output 02/03/20 02/04/20 02/04/20 22:59 06:59 14:59 Intake Total 550 1480 Output Total 500 1950 Balance 50 -470 Lab Results Last 24 Hours: Laboratory Results - last 24 hr 02/03/20 02/03/20 02/04/20 Range/Units 10:00 22:04 04:50 WBC 10.6 (4.5-11.0) K/uL RBC 4.93 (4.30-5.90) M/uL Hgb 11.6 L (12.0-15.0) g/dL Hct 39.2 L (40.0-54.0) % MCV 80 (80-98) fL MCH 24 L (27-31) pg MCHC 30 L (32-36) % Plt Count 229 (150-400) K/uL Puncture Site A-line ABG pH 7.466 H (7.350-7.450) ABG pCO2 57.9 H (35.0-42.0) mmHg ABG pO2 51.8 L (75.0-100.0) mmHg ABG HCO3 41.3 H (22.0-26.0) mmol/L ABG Total CO2 36.9 H (23.0-27.0) mmol/L ABG O2 Saturation 84.9 L (95.0-98.0) % ABG O2 Content 14.1 L (15.0-23.0) %vol ABG Base Excess 15.0 mm/L ABG Hemoglobin 12.1 L (13.5-18.0) g/dL ABG Oxyhemoglobin 82.9 % ABG Carboxyhemoglobin 1.5 (0.0-1.6) % ABG Methemoglobin 0.9 % Ruddy Test N/a O2 Delivery Device Nasal cannula Oxygen Flow Rate 3.0 L Sodium (140-148) mmol/L Potassium 3.1 L (3.6-5.2) mmol/L Chloride (100-108) mmol/L Carbon Dioxide (21-32) mmol/L Anion Gap (5.0-14.0) mmol/L BUN (7-18) mg/dL Creatinine (0.8-1.3) mg/dL Est Cr Clr Drug Dosing mL/min Estimated GFR (MDRD) (>60) Glucose (74-106) mg/dL Calcium (8.5-10.1) mg/dL 02/04/20 02/04/20 Range/Units 04:50 04:50 WBC (4.5-11.0) K/uL RBC (4.30-5.90) M/uL Hgb (12.0-15.0) g/dL Hct (40.0-54.0) % MCV (80-98) fL MCH (27-31) pg MCHC (32-36) % Plt Count (150-400) K/uL Puncture Site A-line ABG pH 7.425 (7.350-7.450) ABG pCO2 62.7 H (35.0-42.0) mmHg ABG pO2 56.6 L (75.0-100.0) mmHg ABG HCO3 40.4 H (22.0-26.0) mmol/L ABG Total CO2 36.5 H (23.0-27.0) mmol/L ABG O2 Saturation 86.8 L (95.0-98.0) % ABG O2 Content 14.1 L (15.0-23.0) %vol ABG Base Excess 13.6 mm/L ABG Hemoglobin 11.9 L (13.5-18.0) g/dL ABG Oxyhemoglobin 84.4 % ABG Carboxyhemoglobin 1.7 H (0.0-1.6) % ABG Methemoglobin 1.1 % Ruddy Test A-line O2 Delivery Device Nasal cannula Oxygen Flow Rate 3.0 L Sodium 143 (140-148) mmol/L Potassium 3.1 L (3.6-5.2) mmol/L Chloride 100 (100-108) mmol/L Carbon Dioxide 38 H (21-32) mmol/L Anion Gap 8.1 (5.0-14.0) mmol/L BUN 23 H (7-18) mg/dL Creatinine 1.0 (0.8-1.3) mg/dL Est Cr Clr Drug Dosing 87.91 mL/min Estimated GFR (MDRD) > 60 (>60) Glucose 101 (74-106) mg/dL Calcium 8.2 L (8.5-10.1) mg/dL Med Orders - Current: Current Medications Acetaminophen (Tylenol) 650 mg PO Q4H PRN PRN Reason: Pain/Fever Albuterol (Ventolin Hfa) 0 gm INH Q4H PRN PRN Reason: Shortness of Breath Albuterol (Proventil Neb Soln) 2.5 mg NEB Q2H PRN PRN Reason: Shortness of Breath Last Admin: 01/28/20 15:08 Dose: 2.5 mg Documented by: Albuterol/Ipratropium (Duoneb 3.0-0.5 Mg/3 Ml) 3 ml INH QIDRT [facility] Last Admin: 02/04/20 07:00 Dose: 3 ml Documented by: Aspirin (Aspirin) 81 mg PO DAILY [facility] Last Admin: 02/04/20 09:29 Dose: 81 mg Documented by: Atorvastatin Calcium (Lipitor) 40 mg PO BEDTIME [facility] Last Admin: 02/03/20 20:55 Dose: 40 mg Documented by: Enoxaparin Sodium (Lovenox) 40 mg SUBCUT Q24H [facility] Last Admin: 02/03/20 15:42 Dose: 40 mg Documented by: Finasteride (Proscar) 5 mg PO DAILY [facility] Last Admin: 02/04/20 09:29 Dose: 5 mg Documented by: Furosemide (Lasix) 40 mg IVPUSH Q12H [facility] Last Admin: 02/04/20 07:55 Dose: 40 mg Documented by: Glycopyrrolate (Seebri Neohaler) 15.6 mcg IH BIDRT [facility] Last Admin: 02/04/20 07:00 Dose: 1 inhalation Documented by: Hydromorphone HCl (Dilaudid) 0.5 mg IVPUSH Q2H PRN PRN Reason: Pain Last Admin: 02/04/20 02:50 Dose: 0.5 mg Documented by: Heparin Sodium (Porcine) 5,000 (units/ Sodium Chloride) 501 mls @ 1 mls/hr IV ASDIRECTED [facility] Last Admin: 02/02/20 13:12 Dose: 1 mls/hr Documented by: Levofloxacin/Dextrose 750 mg/ (Premix) 150 mls @ 100 mls/hr IV Q24H [facility] Stop: 02/05/20 10:01 Last Admin: 02/04/20 09:33 Dose: 100 mls/hr Documented by: Potassium Chloride 20 meq/Lidocaine HCl 2 ml/ Sodium Chloride 112 mls @ 56 mls/hr IV Q2H [facility] Stop: 02/04/20 13:59 Levothyroxine Sodium (Synthroid) 88 mcg PO DAILY@0730 [facility] Last Admin: 02/04/20 07:55 Dose: 88 mcg Documented by: Methylprednisolone Sodium Succinate (Solu-Medrol) 40 mg IVPUSH Q24H [facility] Last Admin: 02/04/20 07:55 Dose: 40 mg Documented by: Nicotine (Habitrol) 21 mg TRDERM DAILY [facility] Last Admin: 02/04/20 09:30 Dose: 21 mg Documented by: Nicotine Polacrilex (Nicorelief) 2 mg CHEW Q1H PRN PRN Reason: Other Ondansetron HCl (Zofran) 4 mg IV Q4H PRN PRN Reason: Nausea/Vomiting Oxycodone HCl (Oxycodone) 10 mg PO Q4H PRN PRN Reason: Pain (moderate 4-6) Last Admin: 02/04/20 03:46 Dose: 10 mg Documented by: Pantoprazole Sodium (Protonix) 40 mg PO DAILY@0730 [facility] Last Admin: 02/04/20 07:55 Dose: 40 mg Documented by: Polyethylene Glycol (Miralax) 17 gm PO DAILY PRN PRN Reason: Constipation Potassium Chloride (Klor-Con M20) 40 meq PO BID [facility] Last Admin: 02/04/20 09:29 Dose: 40 meq Documented by: Fluticasone/Salmeterol (Fluticasone-Salmeterol 232-14 Mcg Powder Inha) 1 puff INH BIDRT [facility] Last Admin: 02/04/20 07:00 Dose: 1 puff Documented by: Sodium Chloride (Saline Flush) 10 ml FLUSH ASDIRECTED PRN PRN Reason: Keep Vein Open Spironolactone (Aldactone) 25 mg PO DAILY [facility] Last Admin: 02/04/20 09:30 Dose: 25 mg Documented by: Tamsulosin HCl (Flomax) 0.4 mg PO PCBREAKFAST [facility] Last Admin: 02/04/20 09:29 Dose: 0.4 mg Documented by: Discontinued Medications Albuterol/Ipratropium (Duoneb 3.0-0.5 Mg/3 Ml) 3 ml NEB ONETIME ONE Stop: 01/26/20 10:05 Last Admin: 01/26/20 10:38 Dose: 3 ml Documented by: Albuterol/Ipratropium (Duoneb 3.0-0.5 Mg/3 Ml) 3 ml INH TIDRT [facility] Last Admin: 02/01/20 21:15 Dose: 3 ml Documented by: Aspirin (Halfprin) 81 mg PO DAILY [facility] Atorvastatin Calcium (Lipitor) 40 mg PO DAILY [facility] Finasteride (Proscar) 5 mg PO DAILY [facility] Furosemide (Lasix) 40 mg IVPUSH NOW ONE Stop: 01/26/20 11:51 Last Admin: 01/26/20 12:30 Dose: 40 mg Documented by: Furosemide (Lasix) 40 mg IVPUSH NOW ONE Stop: 01/26/20 21:01 Last Admin: 01/26/20 21:19 Dose: 40 mg Documented by: Furosemide (Lasix) 40 mg IVPUSH Q12H [facility] Stop: 01/31/20 09:00 Last Admin: 01/31/20 07:55 Dose: 40 mg Documented by: Furosemide (Lasix) 40 mg IVPUSH Q12H [facility] Last Admin: 02/01/20 06:07 Dose: Not Given Documented by: Furosemide (Lasix) 40 mg IVPUSH ONETIME ONE Stop: 02/01/20 14:16 Last Admin: 02/01/20 14:33 Dose: 40 mg Documented by: Heparin Sodium (Porcine) (Heparin Sodium) Confirm Administered Dose 5,000 units .ROUTE .STK-MED ONE Stop: 01/27/20 06:10 Last Admin: 01/27/20 07:12 Dose: Not Given Documented by: Propofol (Diprivan 100 Ml) Confirm Administered Dose 100 mls @ as directed .ROUTE .[facility] ONE Stop: 01/27/20 06:19 Last Admin: 01/27/20 07:12 Dose: Not Given Documented by: Piperacillin/Tazobactam/ (Dextrose 3.375 gm/ Premix) 50 mls @ 100 mls/hr IV Q6H [facility] Last Admin: 01/30/20 08:23 Dose: 100 mls/hr Documented by: Propofol (Diprivan 100 Ml) 100 mls @ 5.443 mls/hr IV TITRATE [facility]; Protocol Last Admin: 02/03/20 06:15 Dose: 35 mcg/kg/min, 38.102 mls/hr Documented by: Vancomycin HCl 2 gm/ Sodium (Chloride) 250 mls @ 166 mls/hr IV Q12H [facility] Last Admin: 01/28/20 22:22 Dose: 166 mls/hr Documented by: Sodium Chloride (Normal Saline) 1,000 mls @ 0 mls/hr IV ASDIRECTED [facility] Last Admin: 01/27/20 08:19 Dose: 15 mls/hr Documented by: Sodium Chloride (Normal Saline) 1,000 mls @ 0 mls/hr IV ASDIRECTED [facility] Last Admin: 01/27/20 08:20 Dose: 15 mls/hr Documented by: Propofol (Diprivan 100 Ml) Confirm Administered Dose 100 mls @ as directed .ROUTE .[facility] ONE Stop: 01/27/20 22:01 Last Admin: 01/27/20 22:05 Dose: Not Given Documented by: Potassium Chloride 20 meq/Lidocaine HCl 2 ml/ Sodium Chloride 112 mls @ 56 mls/hr IV Q2H [facility] Stop: 01/28/20 21:59 Last Admin: 01/28/20 20:47 Dose: 56 mls/hr Documented by: Vancomycin HCl 1.5 gm/ Sodium (Chloride) 250 mls @ 166 mls/hr IV Q12H [facility] Potassium Chloride 20 meq/ (Premix) 100 mls @ 50 mls/hr IV Q2H [facility] Stop: 01/30/20 12:59 Last Admin: 01/30/20 12:20 Dose: 50 mls/hr Documented by: Potassium Chloride 20 meq/ (Premix) 100 mls @ 50 mls/hr IV Q2H [facility] Stop: 01/30/20 19:59 Last Admin: 01/30/20 18:44 Dose: 50 mls/hr Documented by: Potassium Chloride 20 meq/ (Premix) 100 mls @ 50 mls/hr IV Q2H [facility] Stop: 01/31/20 12:59 Last Admin: 01/31/20 12:00 Dose: 50 mls/hr Documented by: Potassium Chloride 20 meq/Lidocaine HCl 2 ml/ Sodium Chloride 112 mls @ 56 mls/hr IV Q2H [facility] Stop: 01/31/20 17:59 Last Admin: 01/31/20 17:00 Dose: 56 mls/hr Documented by: Potassium Chloride 20 meq/Lidocaine HCl 2 ml/ Sodium Chloride 112 mls @ 56 mls/hr IV Q2H [facility] Stop: 01/31/20 23:59 Last Admin: 01/31/20 22:21 Dose: 56 mls/hr Documented by: Potassium Chloride 20 meq/Lidocaine HCl 2 ml/ Sodium Chloride 112 mls @ 50 mls/hr IV Q2H [facility] Stop: 02/02/20 10:44 Last Admin: 02/02/20 11:20 Dose: 50 mls/hr Documented by: Lidocaine HCl (Xylocaine-Mpf 1%) Confirm Administered Dose 2 mls @ as directed .ROUTE .ST-MED ONE Stop: 02/03/20 06:36 Last Admin: 02/03/20 08:17 Dose: Not Given Documented by: Potassium Chloride (Kcl 20 Meq In Water 100 Ml) Confirm Administered Dose 100 mls @ as directed .ROUTE .STK-MED ONE Stop: 02/03/20 06:36 Last Admin: 02/03/20 08:17 Dose: Not Given Documented by: Potassium Chloride 20 meq/Lidocaine HCl 2 ml/ Sodium Chloride 112 mls @ 56 mls/hr IV Q2H [facility] Stop: 02/03/20 10:29 Last Admin: 02/03/20 09:25 Dose: 56 mls/hr Documented by: Potassium Chloride 20 meq/Lidocaine HCl 2 ml/ Sodium Chloride 112 mls @ 50 mls/hr IV Q2H [facility] Stop: 02/03/20 18:59 Last Admin: 02/03/20 17:17 Dose: 50 mls/hr Documented by: Potassium Chloride 20 meq/Lidocaine HCl 2 ml/ Sodium Chloride 112 mls @ 50 mls/hr IV Q2H [facility] Stop: 02/04/20 04:59 Last Admin: 02/04/20 02:27 Dose: Not Given Documented by: Potassium Chloride 40 meq/ (Lidocaine HCl 4 ml/ Premix) 104 mls @ 26 mls/hr IV ONETIME ONE Stop: 02/04/20 05:29 Last Admin: 02/04/20 02:27 Dose: Not Given Documented by: Potassium Chloride 20 meq/ (Premix) 0 mls @ 50 mls/hr IV ONETIME ONE Stop: 02/04/20 01:57 Last Admin: 02/04/20 02:29 Dose: Not Given Documented by: Lidocaine HCl 2 ml/ Potassium (Chloride) 102 mls @ 51 mls/hr INJECT Q2H [facility] Stop: 02/04/20 06:29 Last Admin: 02/04/20 04:45 Dose: 51 mls/hr Documented by: Lidocaine HCl (Xylocaine-Mpf 1%) 5 ml INJECT ONETIME ONE Stop: 01/26/20 13:06 Last Admin: 01/26/20 13:33 Dose: 5 ml Documented by: Lidocaine HCl (Xylocaine-Mpf 1%) 5 ml INJECT ONETIME ONE Stop: 02/04/20 01:57 Last Admin: 02/04/20 02:21 Dose: Not Given Documented by: Methylprednisolone Sodium Succinate (Solu-Medrol) 40 mg IVPUSH Q6H [facility] Last Admin: 01/29/20 08:27 Dose: 40 mg Documented by: Methylprednisolone Sodium Succinate (Solu-Medrol) 40 mg IVPUSH Q12H [facility] Last Admin: 01/30/20 08:20 Dose: 40 mg Documented by: Morphine Sulfate (Morphine) 1 - 2 mg IVPUSH Q2H PRN PRN Reason: Pain Last Admin: 01/26/20 22:37 Dose: 2 mg Documented by: Oxycodone/Acetaminophen (Percocet 325-5 Mg) 1 tab PO Q6H PRN PRN Reason: Pain (severe 7-10) Last Admin: 01/27/20 02:43 Dose: 1 tab Documented by: Pantoprazole Sodium (Protonix) 40 mg PO BIDAC [facility] Last Admin: 01/26/20 17:17 Dose: 40 mg Documented by: Pantoprazole Sodium (Protonix Iv) 40 mg IVPUSH DAILY [facility] Last Admin: 02/03/20 08:15 Dose: 40 mg Documented by: Potassium Chloride (Klor-Con M20) 60 meq PO DAILY [facility] Sodium Chloride (Saline Flush) 10 ml FLUSH ASDIRECTED PRN PRN Reason: Keep Vein Open Last Admin: 01/26/20 10:41 Dose: 10 ml Documented by: Spironolactone (Aldactone) 12.5 mg PO DAILY [facility] Tamsulosin HCl (Flomax) 0.8 mg PO DAILY [facility] - Exam Quality Assessment: Supplemental Oxygen General: Alert, Oriented, Cooperative, No Acute Distress Lungs: Normal Respiratory Effort, Crackles (few both bases). No: Wheezing Cardiovascular: Regular Rate, Regular Rhythm GI/Abdominal Exam: Soft, No Distention Extremities: No Pedal Edema. No: Increased Warmth Skin: Warm, Dry, Rash (venous stasis changes left lower leg ) Psy/Mental Status: Alert, Normal Affect Sepsis Event Note - Evaluation Sepsis Screening Result: No Definite Risk - Focused Exam Vital Signs: Vital Signs Temp Pulse Resp BP BP Pulse Ox 02/04/20 09:00 36 C L 80 22 H 102/50 L 89 L 02/04/20 07:00 36.9 C 82 24 H 73/36 L 108/48 L 86 L 02/04/20 05:00 36.9 C 77 13 89/46 L 90 L 02/04/20 03:00 81 20 91/47 L 89 L 02/04/20 01:00 84 24 H 84/47 L 91 L 02/03/20 23:00 37 C 86 25 H 99/52 L 94 L Date Exam was Performed: 02/04/20 Time Exam was Performed: 13:18 - Problem List Review Problem List Initiated/Reviewed/Updated: Yes - My Orders Last 24 Hours: My Active Orders 02/03/20 14:54 oxyCODONE 10 mg PO Q4H PRN 02/03/20 Dinner Clear Liquid Diet [DIET] 02/03/20 21:00 atorvaSTATin [Lipitor] 40 mg PO BEDTIME 02/04/20 07:30 Sauceda Catheter Insertion [Insert Urinary Catheter] [OM.PC] Q24H Pantoprazole [ProTONIX] 40 mg PO DAILY@0730 02/04/20 09:00 Aspirin 81 mg PO DAILY Finasteride [Proscar] 5 mg PO DAILY Potassium Chloride [Klor-Con M20] 40 meq PO BID Spironolactone [Aldactone] 25 mg PO DAILY Tamsulosin [Flomax] 0.4 mg PO PCBREAKFAST 02/04/20 09:54 Transfer Patient (Change bed) [ADT] Routine Arterial Line Discontinue [OM.PC] Routine 02/04/20 10:00 Potassium Chloride 20 meq Lidocaine 1% [Xylocaine 1%] 2 ml Sodium Chloride 0.9% [Normal Saline] 100 ml IV Q2H 02/04/20 Lunch Full Liquid Diet [DIET] 02/04/20 17:00 predniSONE 20 mg PO ONETIME ONE 02/05/20 08:00 predniSONE 20 mg PO WITHBREAKFAST - Plan Plan:: ASSESSMENT AND PLAN DIASTOLIC CONGESTIVE HEART FAILURE AND COR PULMONALE-echocardiogram showed preserved left ventricular systolic function and elevated right-sided pressures. Excellent diuresis throughout the hospital stay. Kidney function still stable but I think we are getting close to the end of diuresis. -IV furosemide twice daily until kidney function starts to decline -Continue medical management -Physical therapy consult BILATERAL PNEUMONIA-no significant fevers and white count normal. Culture did grow out alpha strep. -Continue levofloxacin for total of 8 days ACUTE ON CHRONIC HYPOXIC AND HYPERCAPNIC RESPIRATORY FAILURE-Likely secondary to bilateral infiltrates and congestive heart failure. Doing well since extubation yesterday. -IV antibiotic therapy with levofloxacin -Transition to prednisone HYPOKALEMIA-secondary to diuresis and will need supplementation throughout the day. MORBID OBESITY-BMI of 54 MAINTENANCE ISSUES -DVT prophylaxis; Lovenox 40 mg subcu daily -GI prophylaxis; Protonix 40 mg IV daily -Sauceda catheter; accurate I&O in a critical patient -Nutrition; start clear liquids -Nicotine dependence; nicotine patch DISPOSITION-anticipate discharge to [place] for subacute rehab after the hospital stay. He is stable and safe for transfer out of the intensive care unit today. Michael Roman MD
[2020-02-04] MEDS: Potassium Chloride 20 MEQ, Lidocaine 1% 2 ML in Sodium Chloride 0.9% 100 ML IV SCH ×2 (11:09→13:11)
[2020-02-04] MEDS: Enoxaparin 40 MG/0.4 ML Syringe SUBCUT SCH (16:53)
[2020-02-04] MEDS ORDERED: predniSONE 20 MG Tab PO ONE (17:00)
[2020-02-04] MEDS: Acetaminophen 325 MG Tab PO PRN (21:05)
[2020-02-04] MEDS: atorvaSTATin 20 MG Tab PO SCH (21:06)
[2020-02-05] MEDS: Albuterol/Ipratropium 3.0-0.5 MG/3 ML Neb Soln INH SCH ×4 (07:15→21:23)
[2020-02-05] MEDS: Fluticasone-Salmeterol 232-14 MCG Powder Inhalent INH SCH ×2 (07:15→21:12)
[2020-02-05] MEDS: Glycopyrrolate 15.6 MCG Cap.W.Dev Kit of 6 IH SCH ×2 (07:15→21:14)
[2020-02-05] MEDS: Levothyroxine 88 MCG Tab PO SCH (07:30)
[2020-02-05] MEDS: Furosemide 40 MG/4 ML VIAL IVPUSH SCH (07:30)
[2020-02-05] MEDS: Pantoprazole 40 MG Tab.CR PO SCH (07:30)
[2020-02-05] MEDS: predniSONE 20 MG Tab PO SCH (07:30)
[2020-02-05] MEDS: Aspirin 81 MG Tab.Chew PO SCH (09:45)
[2020-02-05] MEDS: Spironolactone 25 MG Tab PO SCH (09:45)
[2020-02-05] MEDS: Potassium Chloride 20 MEQ Tab.ER PO SCH ×2 (09:45→21:16)
[2020-02-05] MEDS: Tamsulosin 0.4 MG Cap.ER PO SCH (09:45)
[2020-02-05] MEDS: Nicotine 21 MG/24 Hr Patch TRDERM SCH (09:45)
[2020-02-05] MEDS: Levofloxacin/Dextrose 5%-Water 750 MG in Premix Bag 1 BAG IV SCH (09:46)
[2020-02-05] MEDS: Finasteride 5 MG Tab PO SCH (09:46)
--- NOTE | 2020-02-05 11:22 | PCM.PN ---
- General Info Date of Service: 02/05/20 Subjective Update: There were no acute events overnight. Patient thinks that his shortness of breath is nearing baseline. He has had a good response to diuresis. His weight is down more than 35 pounds. He has not had any fevers. He has been stable on 3 L of supplemental oxygen. No bowel movement as of yet. No abdominal pain or fevers. Functional Status: Reports: Pain Controlled, Tolerating Diet - Review of Systems General: Reports: Weakness. Denies: Fever - Patient Data Vitals - Most Recent: Last Vital Signs Temp 35.9 C L 02/05/20 11:13 Pulse 84 02/05/20 11:13 Resp 18 02/05/20 11:13 BP 101/62 02/05/20 11:13 Pulse Ox 90 L 02/05/20 11:13 Weight - Most Recent: 160.163 kg I&O - Last 24 Hours: Intake & Output 02/04/20 02/05/20 02/05/20 22:59 06:59 14:59 Intake Total 840 600 Output Total 600 800 700 Balance 240 -800 -100 Lab Results Last 24 Hours: Laboratory Results - last 24 hr 02/05/20 Range/Units 08:47 Sodium 144 (140-148) mmol/L Potassium 3.3 L (3.6-5.2) mmol/L Chloride 101 (100-108) mmol/L Carbon Dioxide 37 H (21-32) mmol/L Anion Gap 9.3 (5.0-14.0) mmol/L BUN 24 H (7-18) mg/dL Creatinine 1.2 (0.8-1.3) mg/dL Est Cr Clr Drug Dosing 73.26 mL/min Estimated GFR (MDRD) > 60 (>60) Glucose 143 H (74-106) mg/dL Calcium 8.8 (8.5-10.1) mg/dL Med Orders - Current: Current Medications Acetaminophen (Tylenol) 650 mg PO Q4H PRN PRN Reason: Pain/Fever Last Admin: 02/04/20 21:05 Dose: 650 mg Documented by: Albuterol (Ventolin Hfa) 0 gm INH Q4H PRN PRN Reason: Shortness of Breath Albuterol (Proventil Neb Soln) 2.5 mg NEB Q2H PRN PRN Reason: Shortness of Breath Last Admin: 01/28/20 15:08 Dose: 2.5 mg Documented by: Albuterol/Ipratropium (Duoneb 3.0-0.5 Mg/3 Ml) 3 ml INH QIDRT [facility] Last Admin: 02/05/20 10:36 Dose: 3 ml Documented by: Aspirin (Aspirin) 81 mg PO DAILY [facility] Last Admin: 02/05/20 09:45 Dose: 81 mg Documented by: Atorvastatin Calcium (Lipitor) 40 mg PO BEDTIME [facility] Last Admin: 02/04/20 21:06 Dose: 40 mg Documented by: Enoxaparin Sodium (Lovenox) 40 mg SUBCUT Q24H [facility] Last Admin: 02/04/20 16:53 Dose: 40 mg Documented by: Finasteride (Proscar) 5 mg PO DAILY [facility] Last Admin: 02/05/20 09:46 Dose: 5 mg Documented by: Furosemide (Lasix) 40 mg IVPUSH DAILY [facility] Glycopyrrolate (Seebri Neohaler) 15.6 mcg IH BIDRT [facility] Last Admin: 02/05/20 07:15 Dose: 1 inhalation Documented by: Hydromorphone HCl (Dilaudid) 0.5 mg IVPUSH Q2H PRN PRN Reason: Pain Last Admin: 02/04/20 02:50 Dose: 0.5 mg Documented by: Levothyroxine Sodium (Synthroid) 88 mcg PO DAILY@729 [facility] Last Admin: 02/05/20 07:30 Dose: 88 mcg Documented by: Magnesium Hydroxide (Milk Of Magnesia) 30 ml PO BID PRN PRN Reason: Constipation Nicotine (Habitrol) 21 mg TRDERM DAILY [facility] Last Admin: 02/05/20 09:45 Dose: 21 mg Documented by: Nicotine Polacrilex (Nicorelief) 2 mg CHEW Q1H PRN PRN Reason: Other Ondansetron HCl (Zofran) 4 mg IV Q4H PRN PRN Reason: Nausea/Vomiting Oxycodone HCl (Oxycodone) 10 mg PO Q4H PRN PRN Reason: Pain (moderate 4-6) Last Admin: 02/04/20 21:05 Dose: 10 mg Documented by: Pantoprazole Sodium (Protonix) 40 mg PO DAILY@729 [facility] Last Admin: 02/05/20 07:30 Dose: 40 mg Documented by: Polyethylene Glycol (Miralax) 17 gm PO DAILY PRN PRN Reason: Constipation Potassium Chloride (Klor-Con M20) 40 meq PO BID [facility] Last Admin: 02/05/20 09:45 Dose: 40 meq Documented by: Prednisone (Prednisone) 20 mg PO WITHBREAKFAST [facility] Last Admin: 02/05/20 07:30 Dose: 20 mg Documented by: Fluticasone/Salmeterol (Fluticasone-Salmeterol 232-14 Mcg Powder Inha) 1 puff INH BIDRT [facility] Last Admin: 02/05/20 07:15 Dose: 1 puff Documented by: Sodium Chloride (Saline Flush) 10 ml FLUSH ASDIRECTED PRN PRN Reason: Keep Vein Open Spironolactone (Aldactone) 25 mg PO DAILY [facility] Last Admin: 02/05/20 09:45 Dose: 25 mg Documented by: Tamsulosin HCl (Flomax) 0.4 mg PO PCBREAKFAST [facility] Last Admin: 02/05/20 09:45 Dose: 0.4 mg Documented by: Discontinued Medications Albuterol/Ipratropium (Duoneb 3.0-0.5 Mg/3 Ml) 3 ml NEB ONETIME ONE Stop: 01/26/20 10:05 Last Admin: 01/26/20 10:38 Dose: 3 ml Documented by: Albuterol/Ipratropium (Duoneb 3.0-0.5 Mg/3 Ml) 3 ml INH TIDRT [facility] Last Admin: 02/01/20 21:15 Dose: 3 ml Documented by: Aspirin (Halfprin) 81 mg PO DAILY [facility] Atorvastatin Calcium (Lipitor) 40 mg PO DAILY [facility] Finasteride (Proscar) 5 mg PO DAILY [facility] Furosemide (Lasix) 40 mg IVPUSH NOW ONE Stop: 01/26/20 11:51 Last Admin: 01/26/20 12:30 Dose: 40 mg Documented by: Furosemide (Lasix) 40 mg IVPUSH NOW ONE Stop: 01/26/20 21:01 Last Admin: 01/26/20 21:19 Dose: 40 mg Documented by: Furosemide (Lasix) 40 mg IVPUSH Q12H [facility] Stop: 01/31/20 09:00 Last Admin: 01/31/20 07:55 Dose: 40 mg Documented by: Furosemide (Lasix) 40 mg IVPUSH Q12H EVGENY Last Admin: 02/01/20 06:07 Dose: Not Given Documented by: Furosemide (Lasix) 40 mg IVPUSH ONETIME ONE Stop: 02/01/20 14:16 Last Admin: 02/01/20 14:33 Dose: 40 mg Documented by: Furosemide (Lasix) 40 mg IVPUSH Q12H EVGENY Last Admin: 02/05/20 07:30 Dose: 40 mg Documented by: Heparin Sodium (Porcine) (Heparin Sodium) Confirm Administered Dose 5,000 units .ROUTE .STK-MED ONE Stop: 01/27/20 06:10 Last Admin: 01/27/20 07:12 Dose: Not Given Documented by: Propofol (Diprivan 100 Ml) Confirm Administered Dose 100 mls @ as directed .ROUTE .K-MED ONE Stop: 01/27/20 06:19 Last Admin: 01/27/20 07:12 Dose: Not Given Documented by: Piperacillin/Tazobactam/ (Dextrose 3.375 gm/ Premix) 50 mls @ 100 mls/hr IV Q6H [facility] Last Admin: 01/30/20 08:23 Dose: 100 mls/hr Documented by: Propofol (Diprivan 100 Ml) 100 mls @ 5.443 mls/hr IV TITRATE [facility]; Protocol Last Admin: 02/03/20 06:15 Dose: 35 mcg/kg/min, 38.102 mls/hr Documented by: Vancomycin HCl 2 gm/ Sodium (Chloride) 250 mls @ 166 mls/hr IV Q12H [facility] Last Admin: 01/28/20 22:22 Dose: 166 mls/hr Documented by: Heparin Sodium (Porcine) 5,000 (units/ Sodium Chloride) 501 mls @ 1 mls/hr IV ASDIRECTED EVGENY Last Admin: 02/02/20 13:12 Dose: 1 mls/hr Documented by: Sodium Chloride (Normal Saline) 1,000 mls @ 0 mls/hr IV ASDIRECTED EVGENY Last Admin: 01/27/20 08:19 Dose: 15 mls/hr Documented by: Sodium Chloride (Normal Saline) 1,000 mls @ 0 mls/hr IV ASDIRECTED [facility] Last Admin: 01/27/20 08:20 Dose: 15 mls/hr Documented by: Propofol (Diprivan 100 Ml) Confirm Administered Dose 100 mls @ as directed .ROUTE .STK-MED ONE Stop: 01/27/20 22:01 Last Admin: 01/27/20 22:05 Dose: Not Given Documented by: Levofloxacin/Dextrose 750 mg/ (Premix) 150 mls @ 100 mls/hr IV Q24H [facility] Stop: 02/05/20 10:01 Last Admin: 02/05/20 09:46 Dose: 100 mls/hr Documented by: Potassium Chloride 20 meq/Lidocaine HCl 2 ml/ Sodium Chloride 112 mls @ 56 mls/hr IV Q2H [facility] Stop: 01/28/20 21:59 Last Admin: 01/28/20 20:47 Dose: 56 mls/hr Documented by: Vancomycin HCl 1.5 gm/ Sodium (Chloride) 250 mls @ 166 mls/hr IV Q12H [facility] Potassium Chloride 20 meq/ (Premix) 100 mls @ 50 mls/hr IV Q2H [facility] Stop: 01/30/20 12:59 Last Admin: 01/30/20 12:20 Dose: 50 mls/hr Documented by: Potassium Chloride 20 meq/ (Premix) 100 mls @ 50 mls/hr IV Q2H [facility] Stop: 01/30/20 19:59 Last Admin: 01/30/20 18:44 Dose: 50 mls/hr Documented by: Potassium Chloride 20 meq/ (Premix) 100 mls @ 50 mls/hr IV Q2H [facility] Stop: 01/31/20 12:59 Last Admin: 01/31/20 12:00 Dose: 50 mls/hr Documented by: Potassium Chloride 20 meq/Lidocaine HCl 2 ml/ Sodium Chloride 112 mls @ 56 mls/hr IV Q2H [facility] Stop: 01/31/20 17:59 Last Admin: 01/31/20 17:00 Dose: 56 mls/hr Documented by: Potassium Chloride 20 meq/Lidocaine HCl 2 ml/ Sodium Chloride 112 mls @ 56 mls/hr IV Q2H [facility] Stop: 01/31/20 23:59 Last Admin: 01/31/20 22:21 Dose: 56 mls/hr Documented by: Potassium Chloride 20 meq/Lidocaine HCl 2 ml/ Sodium Chloride 112 mls @ 50 mls/hr IV Q2H [facility] Stop: 02/02/20 10:44 Last Admin: 02/02/20 11:20 Dose: 50 mls/hr Documented by: Lidocaine HCl (Xylocaine-Mpf 1%) Confirm Administered Dose 2 mls @ as directed .ROUTE .[facility] ONE Stop: 02/03/20 06:36 Last Admin: 02/03/20 08:17 Dose: Not Given Documented by: Potassium Chloride (Kcl 20 Meq In Water 100 Ml) Confirm Administered Dose 100 mls @ as directed .ROUTE .[facility] ONE Stop: 02/03/20 06:36 Last Admin: 02/03/20 08:17 Dose: Not Given Documented by: Potassium Chloride 20 meq/Lidocaine HCl 2 ml/ Sodium Chloride 112 mls @ 56 mls/hr IV Q2H [facility] Stop: 02/03/20 10:29 Last Admin: 02/03/20 09:25 Dose: 56 mls/hr Documented by: Potassium Chloride 20 meq/Lidocaine HCl 2 ml/ Sodium Chloride 112 mls @ 50 mls/hr IV Q2H [facility] Stop: 02/03/20 18:59 Last Admin: 02/03/20 17:17 Dose: 50 mls/hr Documented by: Potassium Chloride 20 meq/Lidocaine HCl 2 ml/ Sodium Chloride 112 mls @ 50 mls/hr IV Q2H [facility] Stop: 02/04/20 04:59 Last Admin: 02/04/20 02:27 Dose: Not Given Documented by: Potassium Chloride 40 meq/ (Lidocaine HCl 4 ml/ Premix) 104 mls @ 26 mls/hr IV ONETIME ONE Stop: 02/04/20 05:29 Last Admin: 02/04/20 02:27 Dose: Not Given Documented by: Potassium Chloride 20 meq/ (Premix) 0 mls @ 50 mls/hr IV ONETIME ONE Stop: 02/04/20 01:57 Last Admin: 02/04/20 02:29 Dose: Not Given Documented by: Lidocaine HCl 2 ml/ Potassium (Chloride) 102 mls @ 51 mls/hr INJECT Q2H [facility] Stop: 02/04/20 06:29 Last Admin: 02/04/20 04:45 Dose: 51 mls/hr Documented by: Potassium Chloride 20 meq/Lidocaine HCl 2 ml/ Sodium Chloride 112 mls @ 56 mls/hr IV Q2H [facility] Stop: 02/04/20 13:59 Last Admin: 02/04/20 13:11 Dose: 56 mls/hr Documented by: Lidocaine HCl (Xylocaine-Mpf 1%) 5 ml INJECT ONETIME ONE Stop: 01/26/20 13:06 Last Admin: 01/26/20 13:33 Dose: 5 ml Documented by: Lidocaine HCl (Xylocaine-Mpf 1%) 5 ml INJECT ONETIME ONE Stop: 02/04/20 01:57 Last Admin: 02/04/20 02:21 Dose: Not Given Documented by: Methylprednisolone Sodium Succinate (Solu-Medrol) 40 mg IVPUSH Q6H [facility] Last Admin: 01/29/20 08:27 Dose: 40 mg Documented by: Methylprednisolone Sodium Succinate (Solu-Medrol) 40 mg IVPUSH Q12H [facility] Last Admin: 01/30/20 08:20 Dose: 40 mg Documented by: Methylprednisolone Sodium Succinate (Solu-Medrol) 40 mg IVPUSH Q24H [facility] Last Admin: 02/04/20 07:55 Dose: 40 mg Documented by: Morphine Sulfate (Morphine) 1 - 2 mg IVPUSH Q2H PRN PRN Reason: Pain Last Admin: 01/26/20 22:37 Dose: 2 mg Documented by: Oxycodone/Acetaminophen (Percocet 325-5 Mg) 1 tab PO Q6H PRN PRN Reason: Pain (severe 7-10) Last Admin: 01/27/20 02:43 Dose: 1 tab Documented by: Pantoprazole Sodium (Protonix) 40 mg PO BIDAC [facility] Last Admin: 01/26/20 17:17 Dose: 40 mg Documented by: Pantoprazole Sodium (Protonix Iv) 40 mg IVPUSH DAILY [facility] Last Admin: 02/03/20 08:15 Dose: 40 mg Documented by: Potassium Chloride (Klor-Con M20) 60 meq PO DAILY [facility] Prednisone (Prednisone) 20 mg PO ONETIME ONE Stop: 02/04/20 17:01 Last Admin: 02/04/20 16:56 Dose: 20 mg Documented by: Sodium Chloride (Saline Flush) 10 ml FLUSH ASDIRECTED PRN PRN Reason: Keep Vein Open Last Admin: 01/26/20 10:41 Dose: 10 ml Documented by: Spironolactone (Aldactone) 12.5 mg PO DAILY [facility] Tamsulosin HCl (Flomax) 0.8 mg PO DAILY [facility] - Exam Quality Assessment: Supplemental Oxygen General: Alert, Oriented, Cooperative, No Acute Distress Lungs: Normal Respiratory Effort, Decreased Breath Sounds (mild both bases) Cardiovascular: Regular Rate, Regular Rhythm GI/Abdominal Exam: Soft, No Distention Extremities: No Pedal Edema. No: Increased Warmth Skin: Warm, Dry, Rash (venous stasis left lower leg ) Psy/Mental Status: Alert, Normal Affect Sepsis Event Note - Evaluation Sepsis Screening Result: No Definite Risk - Focused Exam Vital Signs: Vital Signs Temp Pulse Resp BP BP Pulse Ox 02/05/20 11:13 35.9 C L 84 18 101/62 90 L 02/05/20 10:37 88 02/05/20 07:00 36.1 C 85 20 92/56 L 85 L 02/05/20 02:26 35.6 C L 87 20 99/56 L 92 L Date Exam was Performed: 02/05/20 Time Exam was Performed: 13:08 - Problem List Review Problem List Initiated/Reviewed/Updated: Yes - My Orders Last 24 Hours: My Active Orders 02/04/20 13:21 PT Evaluation and Treatment [CONS] Routine 02/05/20 08:00 predniSONE 20 mg PO WITHBREAKFAST 02/05/20 10:06 Magnesium Hydroxide [Milk of Magnesia] 30 ml PO BID PRN 02/05/20 Lunch Low Sodium [Sodium Restricted Diet] [DIET] 02/06/20 05:00 BASIC METABOLIC PANEL,BMP [CHEM] Timed 02/06/20 09:00 Furosemide [Lasix] 40 mg IVPUSH DAILY - Plan Plan:: ASSESSMENT AND PLAN DIASTOLIC CONGESTIVE HEART FAILURE AND COR PULMONALE-echocardiogram showed preserved left ventricular systolic function and elevated right-sided pressures. Excellent diuresis throughout the hospital stay. Kidney function has decreased slightly and blood pressures are on the lower side of normal. -IV furosemide once daily today and reassess tomorrow -Anticipate transition to oral diuretics in the next day or 2 -Continue medical management -Physical therapy consult BILATERAL PNEUMONIA-no significant fevers and white count normal. Culture did grow out alpha strep. -Continue levofloxacin for total of 8 days (today is the last dose) ACUTE ON CHRONIC HYPOXIC AND HYPERCAPNIC RESPIRATORY FAILURE-Likely secondary to bilateral infiltrates and congestive heart failure. Doing well since extubation and stable with 3 L supplemental oxygen -IV antibiotic therapy with levofloxacin -Transition to prednisone, Continue for 2 more days HYPOKALEMIA-secondary to diuresis and will need Additional supplementation. MORBID OBESITY-BMI down to 45 after diuresis MAINTENANCE ISSUES -DVT prophylaxis; Lovenox 40 mg subcu daily -GI prophylaxis; PPI -Sauceda catheter; accurate I&O in a critical patient, plan to remove in the next day or 2 -Nutrition; low-sodium -Nicotine dependence; nicotine patch DISPOSITION-anticipate discharge to OR for subacute rehab after the hospital stay. He should be ready for group home discharge in the next 1 or 2 days. Michael Roman MD
[2020-02-05] MEDS: Magnesium Hydroxide 400 MG/5 ML Susp 30 ML Cup PO PRN ×2 (11:40→21:23)
[2020-02-05] MEDS: oxyCODONE 5 MG Tab PO PRN ×3 (12:04→21:23)
[2020-02-05] MEDS: Enoxaparin 40 MG/0.4 ML Syringe SUBCUT SCH (15:35)
[2020-02-05] MEDS: atorvaSTATin 20 MG Tab PO SCH (21:16)
[2020-02-05] MEDS: Melatonin 3 MG Tab PO PRN (21:32)
[2020-02-06] MEDS: oxyCODONE 5 MG Tab PO PRN ×4 (04:21→23:58)
[2020-02-06] MEDS: Albuterol/Ipratropium 3.0-0.5 MG/3 ML Neb Soln INH SCH ×4 (07:28→20:22)
[2020-02-06] MEDS: Glycopyrrolate 15.6 MCG Cap.W.Dev Kit of 6 IH SCH ×2 (07:29→20:16)
[2020-02-06] MEDS: Fluticasone-Salmeterol 232-14 MCG Powder Inhalent INH SCH ×2 (07:29→20:16)
[2020-02-06] MEDS: Levothyroxine 88 MCG Tab PO SCH (08:05)
[2020-02-06] MEDS: Aspirin 81 MG Tab.Chew PO SCH (08:06)
[2020-02-06] MEDS: Pantoprazole 40 MG Tab.CR PO SCH (08:06)
[2020-02-06] MEDS: predniSONE 20 MG Tab PO SCH (08:06)
[2020-02-06] MEDS: Spironolactone 25 MG Tab PO SCH (08:06)
[2020-02-06] MEDS: Nicotine 21 MG/24 Hr Patch TRDERM SCH (08:07)
[2020-02-06] MEDS: Tamsulosin 0.4 MG Cap.ER PO SCH (08:07)
[2020-02-06] MEDS: Potassium Chloride 20 MEQ Tab.ER PO SCH ×2 (08:08→20:19)
[2020-02-06] MEDS: Furosemide 40 MG/4 ML VIAL IVPUSH SCH (08:08)
[2020-02-06] MEDS: Finasteride 5 MG Tab PO SCH (08:09)
[2020-02-06] MEDS: Acetaminophen 325 MG Tab PO PRN (11:04)
[2020-02-06] MEDS: Magnesium Hydroxide 400 MG/5 ML Susp 30 ML Cup PO PRN (12:32)
--- NOTE | 2020-02-06 15:27 | PCM.PN ---
- General Info Date of Service: 02/06/20 Subjective Update: No acute events overnight. Shortness of breath is stable. Oxygenation stable on 2 L of oxygen. Ongoing response to diuresis. Still no bowel movement. No lower extremity edema. Kidney functions at baseline. Potassium level better. COVID19 testing was negative. Functional Status: Reports: Pain Controlled, Tolerating Diet - Review of Systems General: Reports: Weakness Pulmonary: Reports: Shortness of Breath (baseline) - Patient Data Vitals - Most Recent: Last Vital Signs Temp 36.6 C 02/06/20 15:12 Pulse 88 02/06/20 15:12 Resp 20 02/06/20 15:12 BP 105/60 02/06/20 15:12 Pulse Ox 91 L 02/06/20 15:12 Weight - Most Recent: 161.071 kg I&O - Last 24 Hours: Intake & Output 02/06/20 02/06/20 02/06/20 06:59 14:59 22:59 Intake Total 120 880 Output Total 425 Balance -305 880 Lab Results Last 24 Hours: Laboratory Results - last 24 hr 02/05/20 02/06/20 Range/Units 13:08 04:40 Sodium 141 (140-148) mmol/L Potassium 4.2 (3.6-5.2) mmol/L Chloride 102 (100-108) mmol/L Carbon Dioxide 37 H (21-32) mmol/L Anion Gap 6.2 (5.0-14.0) mmol/L BUN 31 H (7-18) mg/dL Creatinine 1.0 (0.8-1.3) mg/dL Est Cr Clr Drug Dosing 87.91 mL/min Estimated GFR (MDRD) > 60 (>60) Glucose 122 H (74-106) mg/dL Calcium 8.6 (8.5-10.1) mg/dL COVID-19 PCR Negative (NEGATIVE) Med Orders - Current: Current Medications Acetaminophen (Tylenol) 650 mg PO Q4H PRN PRN Reason: Pain/Fever Last Admin: 02/06/20 11:04 Dose: 650 mg Documented by: Albuterol (Ventolin Hfa) 0 gm INH Q4H PRN PRN Reason: Shortness of Breath Albuterol (Proventil Neb Soln) 2.5 mg NEB Q2H PRN PRN Reason: Shortness of Breath Last Admin: 01/28/20 15:08 Dose: 2.5 mg Documented by: Albuterol/Ipratropium (Duoneb 3.0-0.5 Mg/3 Ml) 3 ml INH QIDRT [facility] Last Admin: 02/06/20 14:52 Dose: 3 ml Documented by: Aspirin (Aspirin) 81 mg PO DAILY [facility] Last Admin: 02/06/20 08:06 Dose: 81 mg Documented by: Atorvastatin Calcium (Lipitor) 40 mg PO BEDTIME [facility] Last Admin: 02/05/20 21:16 Dose: 40 mg Documented by: Enoxaparin Sodium (Lovenox) 40 mg SUBCUT Q24H [facility] Last Admin: 02/05/20 15:35 Dose: 40 mg Documented by: Finasteride (Proscar) 5 mg PO DAILY [facility] Last Admin: 02/06/20 08:09 Dose: 5 mg Documented by: Furosemide (Lasix) 40 mg IVPUSH DAILY [facility] Last Admin: 02/06/20 08:08 Dose: 40 mg Documented by: Furosemide (Lasix) 40 mg IVPUSH ONETIME ONE Stop: 02/06/20 20:01 Glycopyrrolate (Seebri Neohaler) 15.6 mcg IH BIDRT [facility] Last Admin: 02/06/20 07:29 Dose: 1 inhalation Documented by: Hydromorphone HCl (Dilaudid) 0.5 mg IVPUSH Q2H PRN PRN Reason: Pain Last Admin: 02/04/20 02:50 Dose: 0.5 mg Documented by: Levothyroxine Sodium (Synthroid) 88 mcg PO DAILY@0730 [facility] Last Admin: 02/06/20 08:05 Dose: 88 mcg Documented by: Magnesium Hydroxide (Milk Of Magnesia) 30 ml PO BID PRN PRN Reason: Constipation Last Admin: 02/06/20 12:32 Dose: 30 ml Documented by: Melatonin (Melatonin) 9 mg PO BEDTIME PRN PRN Reason: Insomnia Last Admin: 02/05/20 21:32 Dose: 9 mg Documented by: Nicotine (Habitrol) 21 mg TRDERM DAILY [facility] Last Admin: 02/06/20 08:07 Dose: 21 mg Documented by: Nicotine Polacrilex (Nicorelief) 2 mg CHEW Q1H PRN PRN Reason: Other Ondansetron HCl (Zofran) 4 mg IV Q4H PRN PRN Reason: Nausea/Vomiting Oxycodone HCl (Oxycodone) 10 mg PO Q4H PRN PRN Reason: Pain (moderate 4-6) Last Admin: 02/06/20 11:04 Dose: 10 mg Documented by: Pantoprazole Sodium (Protonix) 40 mg PO DAILY@0730 [facility] Last Admin: 02/06/20 08:06 Dose: 40 mg Documented by: Polyethylene Glycol (Miralax) 17 gm PO DAILY PRN PRN Reason: Constipation Potassium Chloride (Klor-Con M20) 40 meq PO BID [facility] Last Admin: 02/06/20 08:08 Dose: 40 meq Documented by: Prednisone (Prednisone) 20 mg PO WITHBREAKFAST [facility] Last Admin: 02/06/20 08:06 Dose: 20 mg Documented by: Fluticasone/Salmeterol (Fluticasone-Salmeterol 232-14 Mcg Powder Inha) 1 puff INH BIDRT [facility] Last Admin: 02/06/20 07:29 Dose: 1 puff Documented by: Sodium Chloride (Saline Flush) 10 ml FLUSH ASDIRECTED PRN PRN Reason: Keep Vein Open Spironolactone (Aldactone) 25 mg PO DAILY [facility] Last Admin: 02/06/20 08:06 Dose: 25 mg Documented by: Tamsulosin HCl (Flomax) 0.4 mg PO PCBREAKFAST [facility] Last Admin: 02/06/20 08:07 Dose: 0.4 mg Documented by: Discontinued Medications Albuterol/Ipratropium (Duoneb 3.0-0.5 Mg/3 Ml) 3 ml NEB ONETIME ONE Stop: 01/26/20 10:05 Last Admin: 01/26/20 10:38 Dose: 3 ml Documented by: Albuterol/Ipratropium (Duoneb 3.0-0.5 Mg/3 Ml) 3 ml INH TIDRT [facility] Last Admin: 02/01/20 21:15 Dose: 3 ml Documented by: Aspirin (Halfprin) 81 mg PO DAILY [facility] Atorvastatin Calcium (Lipitor) 40 mg PO DAILY [facility] Finasteride (Proscar) 5 mg PO DAILY [facility] Furosemide (Lasix) 40 mg IVPUSH NOW ONE Stop: 01/26/20 11:51 Last Admin: 01/26/20 12:30 Dose: 40 mg Documented by: Furosemide (Lasix) 40 mg IVPUSH NOW ONE Stop: 01/26/20 21:01 Last Admin: 01/26/20 21:19 Dose: 40 mg Documented by: Furosemide (Lasix) 40 mg IVPUSH Q12H [facility] Stop: 01/31/20 09:00 Last Admin: 01/31/20 07:55 Dose: 40 mg Documented by: Furosemide (Lasix) 40 mg IVPUSH Q12H [facility] Last Admin: 02/01/20 06:07 Dose: Not Given Documented by: Furosemide (Lasix) 40 mg IVPUSH ONETIME ONE Stop: 02/01/20 14:16 Last Admin: 02/01/20 14:33 Dose: 40 mg Documented by: Furosemide (Lasix) 40 mg IVPUSH Q12H [facility] Last Admin: 02/05/20 07:30 Dose: 40 mg Documented by: Heparin Sodium (Porcine) (Heparin Sodium) Confirm Administered Dose 5,000 units .ROUTE .STK-MED ONE Stop: 01/27/20 06:10 Last Admin: 01/27/20 07:12 Dose: Not Given Documented by: Propofol (Diprivan 100 Ml) Confirm Administered Dose 100 mls @ as directed .ROUTE .STK-MED ONE Stop: 01/27/20 06:19 Last Admin: 01/27/20 07:12 Dose: Not Given Documented by: Piperacillin/Tazobactam/ (Dextrose 3.375 gm/ Premix) 50 mls @ 100 mls/hr IV Q6H [facility] Last Admin: 01/30/20 08:23 Dose: 100 mls/hr Documented by: Propofol (Diprivan 100 Ml) 100 mls @ 5.443 mls/hr IV TITRATE [facility]; Protocol Last Admin: 02/03/20 06:15 Dose: 35 mcg/kg/min, 38.102 mls/hr Documented by: Vancomycin HCl 2 gm/ Sodium (Chloride) 250 mls @ 166 mls/hr IV Q12H [facility] Last Admin: 01/28/20 22:22 Dose: 166 mls/hr Documented by: Heparin Sodium (Porcine) 5,000 (units/ Sodium Chloride) 501 mls @ 1 mls/hr IV ASDIRECTED [facility] Last Admin: 02/02/20 13:12 Dose: 1 mls/hr Documented by: Sodium Chloride (Normal Saline) 1,000 mls @ 0 mls/hr IV ASDIRECTED [facility] Last Admin: 01/27/20 08:19 Dose: 15 mls/hr Documented by: Sodium Chloride (Normal Saline) 1,000 mls @ 0 mls/hr IV ASDIRECTED [facility] Last Admin: 01/27/20 08:20 Dose: 15 mls/hr Documented by: Propofol (Diprivan 100 Ml) Confirm Administered Dose 100 mls @ as directed .ROUTE .[facility]-MED ONE Stop: 01/27/20 22:01 Last Admin: 01/27/20 22:05 Dose: Not Given Documented by: Levofloxacin/Dextrose 750 mg/ (Premix) 150 mls @ 100 mls/hr IV Q24H [facility] Stop: 02/05/20 10:01 Last Admin: 02/05/20 09:46 Dose: 100 mls/hr Documented by: Potassium Chloride 20 meq/Lidocaine HCl 2 ml/ Sodium Chloride 112 mls @ 56 mls/hr IV Q2H [facility] Stop: 01/28/20 21:59 Last Admin: 01/28/20 20:47 Dose: 56 mls/hr Documented by: Vancomycin HCl 1.5 gm/ Sodium (Chloride) 250 mls @ 166 mls/hr IV Q12H [facility] Potassium Chloride 20 meq/ (Premix) 100 mls @ 50 mls/hr IV Q2H [facility] Stop: 01/30/20 12:59 Last Admin: 01/30/20 12:20 Dose: 50 mls/hr Documented by: Potassium Chloride 20 meq/ (Premix) 100 mls @ 50 mls/hr IV Q2H [facility] Stop: 01/30/20 19:59 Last Admin: 01/30/20 18:44 Dose: 50 mls/hr Documented by: Potassium Chloride 20 meq/ (Premix) 100 mls @ 50 mls/hr IV Q2H [facility] Stop: 01/31/20 12:59 Last Admin: 01/31/20 12:00 Dose: 50 mls/hr Documented by: Potassium Chloride 20 meq/Lidocaine HCl 2 ml/ Sodium Chloride 112 mls @ 56 mls/hr IV Q2H [facility] Stop: 01/31/20 17:59 Last Admin: 01/31/20 17:00 Dose: 56 mls/hr Documented by: Potassium Chloride 20 meq/Lidocaine HCl 2 ml/ Sodium Chloride 112 mls @ 56 mls/hr IV Q2H [facility] Stop: 01/31/20 23:59 Last Admin: 01/31/20 22:21 Dose: 56 mls/hr Documented by: Potassium Chloride 20 meq/Lidocaine HCl 2 ml/ Sodium Chloride 112 mls @ 50 mls/hr IV Q2H [facility] Stop: 02/02/20 10:44 Last Admin: 02/02/20 11:20 Dose: 50 mls/hr Documented by: Lidocaine HCl (Xylocaine-Mpf 1%) Confirm Administered Dose 2 mls @ as directed .ROUTE .STK-MED ONE Stop: 02/03/20 06:36 Last Admin: 02/03/20 08:17 Dose: Not Given Documented by: Potassium Chloride (Kcl 20 Meq In Water 100 Ml) Confirm Administered Dose 100 mls @ as directed .ROUTE .STK-MED ONE Stop: 02/03/20 06:36 Last Admin: 02/03/20 08:17 Dose: Not Given Documented by: Potassium Chloride 20 meq/Lidocaine HCl 2 ml/ Sodium Chloride 112 mls @ 56 mls/hr IV Q2H [facility] Stop: 02/03/20 10:29 Last Admin: 02/03/20 09:25 Dose: 56 mls/hr Documented by: Potassium Chloride 20 meq/Lidocaine HCl 2 ml/ Sodium Chloride 112 mls @ 50 mls/hr IV Q2H [facility] Stop: 02/03/20 18:59 Last Admin: 02/03/20 17:17 Dose: 50 mls/hr Documented by: Potassium Chloride 20 meq/Lidocaine HCl 2 ml/ Sodium Chloride 112 mls @ 50 mls/hr IV Q2H [facility] Stop: 02/04/20 04:59 Last Admin: 02/04/20 02:27 Dose: Not Given Documented by: Potassium Chloride 40 meq/ (Lidocaine HCl 4 ml/ Premix) 104 mls @ 26 mls/hr IV ONETIME ONE Stop: 02/04/20 05:29 Last Admin: 02/04/20 02:27 Dose: Not Given Documented by: Potassium Chloride 20 meq/ (Premix) 0 mls @ 50 mls/hr IV ONETIME ONE Stop: 02/04/20 01:57 Last Admin: 02/04/20 02:29 Dose: Not Given Documented by: Lidocaine HCl 2 ml/ Potassium (Chloride) 102 mls @ 51 mls/hr INJECT Q2H [facility] Stop: 02/04/20 06:29 Last Admin: 02/04/20 04:45 Dose: 51 mls/hr Documented by: Potassium Chloride 20 meq/Lidocaine HCl 2 ml/ Sodium Chloride 112 mls @ 56 mls/hr IV Q2H [facility] Stop: 02/04/20 13:59 Last Admin: 02/04/20 13:11 Dose: 56 mls/hr Documented by: Lidocaine HCl (Xylocaine-Mpf 1%) 5 ml INJECT ONETIME ONE Stop: 01/26/20 13:06 Last Admin: 01/26/20 13:33 Dose: 5 ml Documented by: Lidocaine HCl (Xylocaine-Mpf 1%) 5 ml INJECT ONETIME ONE Stop: 02/04/20 01:57 Last Admin: 02/04/20 02:21 Dose: Not Given Documented by: Methylprednisolone Sodium Succinate (Solu-Medrol) 40 mg IVPUSH Q6H [facility] Last Admin: 01/29/20 08:27 Dose: 40 mg Documented by: Methylprednisolone Sodium Succinate (Solu-Medrol) 40 mg IVPUSH Q12H [facility] Last Admin: 01/30/20 08:20 Dose: 40 mg Documented by: Methylprednisolone Sodium Succinate (Solu-Medrol) 40 mg IVPUSH Q24H [facility] Last Admin: 02/04/20 07:55 Dose: 40 mg Documented by: Morphine Sulfate (Morphine) 1 - 2 mg IVPUSH Q2H PRN PRN Reason: Pain Last Admin: 01/26/20 22:37 Dose: 2 mg Documented by: Oxycodone/Acetaminophen (Percocet 325-5 Mg) 1 tab PO Q6H PRN PRN Reason: Pain (severe 7-10) Last Admin: 01/27/20 02:43 Dose: 1 tab Documented by: Pantoprazole Sodium (Protonix) 40 mg PO BIDAC [facility] Last Admin: 01/26/20 17:17 Dose: 40 mg Documented by: Pantoprazole Sodium (Protonix Iv) 40 mg IVPUSH DAILY [facility] Last Admin: 02/03/20 08:15 Dose: 40 mg Documented by: Potassium Chloride (Klor-Con M20) 60 meq PO DAILY [facility] Prednisone (Prednisone) 20 mg PO ONETIME ONE Stop: 02/04/20 17:01 Last Admin: 02/04/20 16:56 Dose: 20 mg Documented by: Sodium Chloride (Saline Flush) 10 ml FLUSH ASDIRECTED PRN PRN Reason: Keep Vein Open Last Admin: 01/26/20 10:41 Dose: 10 ml Documented by: Spironolactone (Aldactone) 12.5 mg PO DAILY [facility] Tamsulosin HCl (Flomax) 0.8 mg PO DAILY [facility] - Exam Quality Assessment: Supplemental Oxygen General: Alert, Oriented, Cooperative, No Acute Distress Lungs: Clear to Auscultation, Normal Respiratory Effort, Decreased Breath Sounds (mild both bases) Cardiovascular: Regular Rate, Regular Rhythm GI/Abdominal Exam: Soft, No Distention Extremities: No Pedal Edema. No: Increased Warmth Psy/Mental Status: Alert, Normal Affect Sepsis Event Note - Evaluation Sepsis Screening Result: No Definite Risk - Focused Exam Vital Signs: Vital Signs Temp Pulse Resp BP Pulse Ox 02/06/20 15:12 36.6 C 88 20 105/60 91 L 02/06/20 14:52 88 02/06/20 11:23 84 02/06/20 11:17 36.3 C 81 16 94/57 L 90 L 02/06/20 08:05 84 02/06/20 06:00 35.7 C L 80 18 98/58 L 90 L Date Exam was Performed: 02/06/20 Time Exam was Performed: 16:07 - Problem List Review Problem List Initiated/Reviewed/Updated: Yes - My Orders Last 24 Hours: My Active Orders 02/06/20 07:30 Sauceda Catheter Insertion [Insert Urinary Catheter] [OM.PC] Q24H 02/06/20 09:00 Furosemide [Lasix] 40 mg IVPUSH DAILY 02/06/20 20:00 Furosemide [Lasix] 40 mg IVPUSH ONETIME ONE 02/07/20 05:00 BASIC METABOLIC PANEL,BMP [CHEM] Timed MAGNESIUM [CHEM] Timed - Plan Plan:: ASSESSMENT AND PLAN DIASTOLIC CONGESTIVE HEART FAILURE AND COR PULMONALE-still responding well to diuresis. Kidney function back to baseline. -IV furosemide twice today -Anticipate transition to oral diuretics in the next day or 2 -Daily weights -Continue medical management -Physical therapy consult BILATERAL PNEUMONIA-no significant fevers and white count normal. Culture did grow out alpha strep. -He has completed adequate antibiotic therapy ACUTE ON CHRONIC HYPOXIC AND HYPERCAPNIC RESPIRATORY FAILURE-Likely secondary to bilateral infiltrates and congestive heart failure. Respiratory status stable 2 L of supplemental oxygen. -He has completed antibiotic therapy -Transition to prednisone, Continue for 1 more day HYPOKALEMIA-secondary to diuresis and has improved with supplementation. -Continue twice daily supplementation MORBID OBESITY-BMI down to 45 after diuresis MAINTENANCE ISSUES -DVT prophylaxis; enoxaparin -GI prophylaxis; PPI -Sauceda catheter; accurate I&O in a critical patient, plan to remove tomorrow -Nutrition; low-sodium -Nicotine dependence; nicotine patch DISPOSITION-anticipate discharge to [place] for subacute rehab after the hospital stay. He should be ready for [facility]dc discharge in the next 1 or 2 days. The tentative plan is for discharge to [facility] Saturday if stable. Michael Roman MD
[2020-02-06] MEDS: Enoxaparin 40 MG/0.4 ML Syringe SUBCUT SCH (15:45)
[2020-02-06] MEDS ORDERED: Bisacodyl 5 MG Tab PO ONE (16:00)
[2020-02-06] MEDS ORDERED: Furosemide 40 MG/4 ML VIAL IVPUSH ONE (20:00)
[2020-02-06] MEDS: atorvaSTATin 20 MG Tab PO SCH (20:19)
[2020-02-06] MEDS: Melatonin 3 MG Tab PO PRN (21:12)
[2020-02-07] MEDS: oxyCODONE 5 MG Tab PO PRN ×2 (04:06→23:49)
[2020-02-07] MEDS: Acetaminophen 325 MG Tab PO PRN ×2 (04:07→16:23)
[2020-02-07] MEDS: Albuterol/Ipratropium 3.0-0.5 MG/3 ML Neb Soln INH SCH ×4 (07:15→21:49)
[2020-02-07] MEDS: Glycopyrrolate 15.6 MCG Cap.W.Dev Kit of 6 IH SCH ×2 (07:16→21:52)
[2020-02-07] MEDS: Fluticasone-Salmeterol 232-14 MCG Powder Inhalent INH SCH ×2 (07:19→21:50)
[2020-02-07] MEDS: Pantoprazole 40 MG Tab.CR PO SCH (07:41)
[2020-02-07] MEDS: Levothyroxine 88 MCG Tab PO SCH (07:41)
[2020-02-07] MEDS ORDERED: Bisacodyl 10 MG Supp RECTAL ONE (09:30)
[2020-02-07] MEDS: Spironolactone 25 MG Tab PO SCH (10:02)
[2020-02-07] MEDS: Aspirin 81 MG Tab.Chew PO SCH (10:02)
[2020-02-07] MEDS: predniSONE 20 MG Tab PO SCH (10:02)
[2020-02-07] MEDS: Potassium Chloride 20 MEQ Tab.ER PO SCH ×2 (10:05→21:52)
[2020-02-07] MEDS: Tamsulosin 0.4 MG Cap.ER PO SCH (10:05)
[2020-02-07] MEDS: Nicotine 21 MG/24 Hr Patch TRDERM SCH (10:05)
[2020-02-07] MEDS: Finasteride 5 MG Tab PO SCH (10:06)
[2020-02-07] MEDS: Furosemide 40 MG/4 ML VIAL IVPUSH SCH (10:07)
[2020-02-07] MEDS: Magnesium Hydroxide 400 MG/5 ML Susp 30 ML Cup PO PRN (10:16)
[2020-02-07] MEDS ORDERED: Sodium Phosphate,Monobasic/Sodium Phosphate,Dibasic Enema 133 ML Bottle RECTAL PRN (11:16)
--- NOTE | 2020-02-07 11:17 | PCM.PN ---
- General Info Date of Service: 02/07/20 Subjective Update: No acute events overnight. Shortness of breath is at baseline. He is on 2 L of oxygen and respiratory status has been stable. Cough is much better. Strength slowly improving but he is quite weak and is still not able to stand. Tolerating diet. No fevers. No bowel movement as of yet despite aggressive bowel stimulation. Functional Status: Reports: Pain Controlled - Review of Systems Gastrointestinal: Reports: Other (no BM) - Patient Data Vitals - Most Recent: Last Vital Signs Temp 36.4 C 02/07/20 07:00 Pulse 88 02/07/20 10:41 Resp 18 02/07/20 07:00 BP 103/52 L 02/07/20 07:00 Pulse Ox 92 L 02/07/20 07:00 Weight - Most Recent: 161.706 kg I&O - Last 24 Hours: Intake & Output 02/06/20 02/07/20 02/07/20 22:59 06:59 14:59 Intake Total 240 100 Output Total 1950 1400 Balance -1710 -1300 Lab Results Last 24 Hours: Laboratory Results - last 24 hr 02/07/20 Range/Units 04:10 Sodium 141 (140-148) mmol/L Potassium 4.2 (3.6-5.2) mmol/L Chloride 102 (100-108) mmol/L Carbon Dioxide 36 H (21-32) mmol/L Anion Gap 7.2 (5.0-14.0) mmol/L BUN 28 H (7-18) mg/dL Creatinine 1.1 (0.8-1.3) mg/dL Est Cr Clr Drug Dosing 79.92 mL/min Estimated GFR (MDRD) > 60 (>60) Glucose 115 H (74-106) mg/dL Calcium 8.4 L (8.5-10.1) mg/dL Magnesium 2.2 (1.8-2.4) mg/dL Med Orders - Current: Current Medications Acetaminophen (Tylenol) 650 mg PO Q4H PRN PRN Reason: Pain/Fever Last Admin: 02/07/20 04:07 Dose: 650 mg Documented by: Albuterol (Ventolin Hfa) 0 gm INH Q4H PRN PRN Reason: Shortness of Breath Albuterol (Proventil Neb Soln) 2.5 mg NEB Q2H PRN PRN Reason: Shortness of Breath Last Admin: 01/28/20 15:08 Dose: 2.5 mg Documented by: Albuterol/Ipratropium (Duoneb 3.0-0.5 Mg/3 Ml) 3 ml INH QIDRT [facility] Last Admin: 02/07/20 10:40 Dose: 3 ml Documented by: Aspirin (Aspirin) 81 mg PO DAILY [facility] Last Admin: 02/07/20 10:02 Dose: 81 mg Documented by: Atorvastatin Calcium (Lipitor) 40 mg PO BEDTIME [facility] Last Admin: 02/06/20 20:19 Dose: 40 mg Documented by: Enoxaparin Sodium (Lovenox) 40 mg SUBCUT Q24H [facility] Last Admin: 02/06/20 15:45 Dose: 40 mg Documented by: Finasteride (Proscar) 5 mg PO DAILY [facility] Last Admin: 02/07/20 10:06 Dose: 5 mg Documented by: Furosemide (Lasix) 40 mg PO DAILY [facility] Glycopyrrolate (Seebri Neohaler) 15.6 mcg IH BIDRT [facility] Last Admin: 02/07/20 07:16 Dose: 1 inhalation Documented by: Hydromorphone HCl (Dilaudid) 0.5 mg IVPUSH Q2H PRN PRN Reason: Pain Last Admin: 02/04/20 02:50 Dose: 0.5 mg Documented by: Levothyroxine Sodium (Synthroid) 88 mcg PO DAILY@0730 [facility] Last Admin: 02/07/20 07:41 Dose: 88 mcg Documented by: Magnesium Hydroxide (Milk Of Magnesia) 30 ml PO BID PRN PRN Reason: Constipation Last Admin: 02/07/20 10:16 Dose: 30 ml Documented by: Melatonin (Melatonin) 9 mg PO BEDTIME PRN PRN Reason: Insomnia Last Admin: 02/06/20 21:12 Dose: 9 mg Documented by: Nicotine (Habitrol) 21 mg TRDERM DAILY [facility] Last Admin: 02/07/20 10:05 Dose: 21 mg Documented by: Nicotine Polacrilex (Nicorelief) 2 mg CHEW Q1H PRN PRN Reason: Other Ondansetron HCl (Zofran) 4 mg IV Q4H PRN PRN Reason: Nausea/Vomiting Oxycodone HCl (Oxycodone) 10 mg PO Q4H PRN PRN Reason: Pain (moderate 4-6) Last Admin: 02/07/20 04:06 Dose: 10 mg Documented by: Pantoprazole Sodium (Protonix) 40 mg PO DAILY@0730 [facility] Last Admin: 02/07/20 07:41 Dose: 40 mg Documented by: Polyethylene Glycol (Miralax) 17 gm PO DAILY PRN PRN Reason: Constipation Last Admin: 02/06/20 19:08 Dose: 17 gm Documented by: Potassium Chloride (Klor-Con M20) 40 meq PO BID [facility] Last Admin: 02/07/20 10:05 Dose: 40 meq Documented by: Prednisone (Prednisone) 20 mg PO WITHBREAKFAST [facility] Last Admin: 02/07/20 10:02 Dose: 20 mg Documented by: Fluticasone/Salmeterol (Fluticasone-Salmeterol 232-14 Mcg Powder Inha) 1 puff INH BIDRT [facility] Last Admin: 02/07/20 07:19 Dose: 1 puff Documented by: Sodium Chloride (Saline Flush) 10 ml FLUSH ASDIRECTED PRN PRN Reason: Keep Vein Open Spironolactone (Aldactone) 25 mg PO DAILY [facility] Last Admin: 02/07/20 10:02 Dose: 25 mg Documented by: Tamsulosin HCl (Flomax) 0.4 mg PO PCBREAKFAST [facility] Last Admin: 02/07/20 10:05 Dose: 0.4 mg Documented by: Discontinued Medications Albuterol/Ipratropium (Duoneb 3.0-0.5 Mg/3 Ml) 3 ml NEB ONETIME ONE Stop: 01/26/20 10:05 Last Admin: 01/26/20 10:38 Dose: 3 ml Documented by: Albuterol/Ipratropium (Duoneb 3.0-0.5 Mg/3 Ml) 3 ml INH TIDRT [facility] Last Admin: 02/01/20 21:15 Dose: 3 ml Documented by: Aspirin (Halfprin) 81 mg PO DAILY [facility] Atorvastatin Calcium (Lipitor) 40 mg PO DAILY [facility] Bisacodyl (Dulcolax) 10 mg PO ONETIME ONE Stop: 02/06/20 16:01 Last Admin: 02/06/20 15:45 Dose: 10 mg Documented by: Bisacodyl (Dulcolax) 10 mg RECTAL ONETIME ONE Stop: 02/07/20 09:31 Last Admin: 02/07/20 10:15 Dose: 10 mg Documented by: Finasteride (Proscar) 5 mg PO DAILY [facility] Furosemide (Lasix) 40 mg IVPUSH NOW ONE Stop: 01/26/20 11:51 Last Admin: 01/26/20 12:30 Dose: 40 mg Documented by: Furosemide (Lasix) 40 mg IVPUSH NOW ONE Stop: 01/26/20 21:01 Last Admin: 01/26/20 21:19 Dose: 40 mg Documented by: Furosemide (Lasix) 40 mg IVPUSH Q12H [facility] Stop: 01/31/20 09:00 Last Admin: 01/31/20 07:55 Dose: 40 mg Documented by: Furosemide (Lasix) 40 mg IVPUSH Q12H [facility] Last Admin: 02/01/20 06:07 Dose: Not Given Documented by: Furosemide (Lasix) 40 mg IVPUSH ONETIME ONE Stop: 02/01/20 14:16 Last Admin: 02/01/20 14:33 Dose: 40 mg Documented by: Furosemide (Lasix) 40 mg IVPUSH Q12H [facility] Last Admin: 02/05/20 07:30 Dose: 40 mg Documented by: Furosemide (Lasix) 40 mg IVPUSH DAILY [facility] Last Admin: 02/07/20 10:07 Dose: 40 mg Documented by: Furosemide (Lasix) 40 mg IVPUSH ONETIME ONE Stop: 02/06/20 20:01 Last Admin: 02/06/20 20:00 Dose: 40 mg Documented by: Heparin Sodium (Porcine) (Heparin Sodium) Confirm Administered Dose 5,000 units .ROUTE .STK-MED ONE Stop: 01/27/20 06:10 Last Admin: 01/27/20 07:12 Dose: Not Given Documented by: Propofol (Diprivan 100 Ml) Confirm Administered Dose 100 mls @ as directed .ROUTE .STK-MED ONE Stop: 01/27/20 06:19 Last Admin: 01/27/20 07:12 Dose: Not Given Documented by: Piperacillin/Tazobactam/ (Dextrose 3.375 gm/ Premix) 50 mls @ 100 mls/hr IV Q6H [facility] Last Admin: 01/30/20 08:23 Dose: 100 mls/hr Documented by: Propofol (Diprivan 100 Ml) 100 mls @ 5.443 mls/hr IV TITRATE EVGENY; Protocol Last Admin: 02/03/20 06:15 Dose: 35 mcg/kg/min, 38.102 mls/hr Documented by: Vancomycin HCl 2 gm/ Sodium (Chloride) 250 mls @ 166 mls/hr IV Q12H [facility] Last Admin: 01/28/20 22:22 Dose: 166 mls/hr Documented by: Heparin Sodium (Porcine) 5,000 (units/ Sodium Chloride) 501 mls @ 1 mls/hr IV ASDIRECTED EVGENY Last Admin: 02/02/20 13:12 Dose: 1 mls/hr Documented by: Sodium Chloride (Normal Saline) 1,000 mls @ 0 mls/hr IV ASDIRECTED EVGENY Last Admin: 01/27/20 08:19 Dose: 15 mls/hr Documented by: Sodium Chloride (Normal Saline) 1,000 mls @ 0 mls/hr IV ASDIRECTED [facility] Last Admin: 01/27/20 08:20 Dose: 15 mls/hr Documented by: Propofol (Diprivan 100 Ml) Confirm Administered Dose 100 mls @ as directed .ROUTE .[facility]-MED ONE Stop: 01/27/20 22:01 Last Admin: 01/27/20 22:05 Dose: Not Given Documented by: Levofloxacin/Dextrose 750 mg/ (Premix) 150 mls @ 100 mls/hr IV Q24H [facility] Stop: 02/05/20 10:01 Last Admin: 02/05/20 09:46 Dose: 100 mls/hr Documented by: Potassium Chloride 20 meq/Lidocaine HCl 2 ml/ Sodium Chloride 112 mls @ 56 mls/hr IV Q2H [facility] Stop: 01/28/20 21:59 Last Admin: 01/28/20 20:47 Dose: 56 mls/hr Documented by: Vancomycin HCl 1.5 gm/ Sodium (Chloride) 250 mls @ 166 mls/hr IV Q12H [facility] Potassium Chloride 20 meq/ (Premix) 100 mls @ 50 mls/hr IV Q2H [facility] Stop: 01/30/20 12:59 Last Admin: 01/30/20 12:20 Dose: 50 mls/hr Documented by: Potassium Chloride 20 meq/ (Premix) 100 mls @ 50 mls/hr IV Q2H [facility] Stop: 01/30/20 19:59 Last Admin: 01/30/20 18:44 Dose: 50 mls/hr Documented by: Potassium Chloride 20 meq/ (Premix) 100 mls @ 50 mls/hr IV Q2H [facility] Stop: 01/31/20 12:59 Last Admin: 01/31/20 12:00 Dose: 50 mls/hr Documented by: Potassium Chloride 20 meq/Lidocaine HCl 2 ml/ Sodium Chloride 112 mls @ 56 mls/hr IV Q2H [facility] Stop: 01/31/20 17:59 Last Admin: 01/31/20 17:00 Dose: 56 mls/hr Documented by: Potassium Chloride 20 meq/Lidocaine HCl 2 ml/ Sodium Chloride 112 mls @ 56 mls/hr IV Q2H [facility] Stop: 01/31/20 23:59 Last Admin: 01/31/20 22:21 Dose: 56 mls/hr Documented by: Potassium Chloride 20 meq/Lidocaine HCl 2 ml/ Sodium Chloride 112 mls @ 50 mls/hr IV Q2H [facility] Stop: 02/02/20 10:44 Last Admin: 02/02/20 11:20 Dose: 50 mls/hr Documented by: Lidocaine HCl (Xylocaine-Mpf 1%) Confirm Administered Dose 2 mls @ as directed .ROUTE .STK-MED ONE Stop: 02/03/20 06:36 Last Admin: 02/03/20 08:17 Dose: Not Given Documented by: Potassium Chloride (Kcl 20 Meq In Water 100 Ml) Confirm Administered Dose 100 mls @ as directed .ROUTE .STK-MED ONE Stop: 02/03/20 06:36 Last Admin: 02/03/20 08:17 Dose: Not Given Documented by: Potassium Chloride 20 meq/Lidocaine HCl 2 ml/ Sodium Chloride 112 mls @ 56 mls/hr IV Q2H [facility] Stop: 02/03/20 10:29 Last Admin: 02/03/20 09:25 Dose: 56 mls/hr Documented by: Potassium Chloride 20 meq/Lidocaine HCl 2 ml/ Sodium Chloride 112 mls @ 50 mls/hr IV Q2H [facility] Stop: 02/03/20 18:59 Last Admin: 02/03/20 17:17 Dose: 50 mls/hr Documented by: Potassium Chloride 20 meq/Lidocaine HCl 2 ml/ Sodium Chloride 112 mls @ 50 mls/hr IV Q2H [facility] Stop: 02/04/20 04:59 Last Admin: 02/04/20 02:27 Dose: Not Given Documented by: Potassium Chloride 40 meq/ (Lidocaine HCl 4 ml/ Premix) 104 mls @ 26 mls/hr IV ONETIME ONE Stop: 02/04/20 05:29 Last Admin: 02/04/20 02:27 Dose: Not Given Documented by: Potassium Chloride 20 meq/ (Premix) 0 mls @ 50 mls/hr IV ONETIME ONE Stop: 02/04/20 01:57 Last Admin: 02/04/20 02:29 Dose: Not Given Documented by: Lidocaine HCl 2 ml/ Potassium (Chloride) 102 mls @ 51 mls/hr INJECT Q2H [facility] Stop: 02/04/20 06:29 Last Admin: 02/04/20 04:45 Dose: 51 mls/hr Documented by: Potassium Chloride 20 meq/Lidocaine HCl 2 ml/ Sodium Chloride 112 mls @ 56 mls/hr IV Q2H [facility] Stop: 02/04/20 13:59 Last Admin: 02/04/20 13:11 Dose: 56 mls/hr Documented by: Lidocaine HCl (Xylocaine-Mpf 1%) 5 ml INJECT ONETIME ONE Stop: 01/26/20 13:06 Last Admin: 01/26/20 13:33 Dose: 5 ml Documented by: Lidocaine HCl (Xylocaine-Mpf 1%) 5 ml INJECT ONETIME ONE Stop: 02/04/20 01:57 Last Admin: 02/04/20 02:21 Dose: Not Given Documented by: Methylprednisolone Sodium Succinate (Solu-Medrol) 40 mg IVPUSH Q6H [facility] Last Admin: 01/29/20 08:27 Dose: 40 mg Documented by: Methylprednisolone Sodium Succinate (Solu-Medrol) 40 mg IVPUSH Q12H [facility] Last Admin: 01/30/20 08:20 Dose: 40 mg Documented by: Methylprednisolone Sodium Succinate (Solu-Medrol) 40 mg IVPUSH Q24H [facility] Last Admin: 02/04/20 07:55 Dose: 40 mg Documented by: Morphine Sulfate (Morphine) 1 - 2 mg IVPUSH Q2H PRN PRN Reason: Pain Last Admin: 01/26/20 22:37 Dose: 2 mg Documented by: Oxycodone/Acetaminophen (Percocet 325-5 Mg) 1 tab PO Q6H PRN PRN Reason: Pain (severe 7-10) Last Admin: 01/27/20 02:43 Dose: 1 tab Documented by: Pantoprazole Sodium (Protonix) 40 mg PO BIDAC [facility] Last Admin: 01/26/20 17:17 Dose: 40 mg Documented by: Pantoprazole Sodium (Protonix Iv) 40 mg IVPUSH DAILY [facility] Last Admin: 02/03/20 08:15 Dose: 40 mg Documented by: Potassium Chloride (Klor-Con M20) 60 meq PO DAILY [facility] Prednisone (Prednisone) 20 mg PO ONETIME ONE Stop: 02/04/20 17:01 Last Admin: 02/04/20 16:56 Dose: 20 mg Documented by: Sodium Chloride (Saline Flush) 10 ml FLUSH ASDIRECTED PRN PRN Reason: Keep Vein Open Last Admin: 01/26/20 10:41 Dose: 10 ml Documented by: Spironolactone (Aldactone) 12.5 mg PO DAILY [facility] Tamsulosin HCl (Flomax) 0.8 mg PO DAILY [facility] - Exam Quality Assessment: Supplemental Oxygen General: Alert, Oriented, Cooperative, No Acute Distress Lungs: Normal Respiratory Effort GI/Abdominal Exam: Soft, No Distention Extremities: No Pedal Edema Psy/Mental Status: Alert, Normal Affect Sepsis Event Note - Evaluation Sepsis Screening Result: No Definite Risk - Focused Exam Vital Signs: Vital Signs Temp Pulse Resp BP Pulse Ox 02/07/20 10:41 88 02/07/20 07:20 82 02/07/20 07:00 36.4 C 72 18 103/52 L 92 L 02/07/20 03:53 35.8 C L 79 20 112/61 92 L 02/07/20 00:00 36.1 C 82 18 101/54 L 94 L Date Exam was Performed: 02/07/20 Time Exam was Performed: 13:08 - Problem List Review Problem List Initiated/Reviewed/Updated: Yes - My Orders Last 24 Hours: My Active Orders 02/07/20 09:21 DC Sauceda Catheter [Urinary Catheter Removal] [RC] PER UNIT ROUTINE 02/07/20 11:16 Na Phos,M-B/Na Phos,DI-B [Fleet Enema] 133 ml RECTAL DAILY PRN 02/08/20 09:00 Furosemide [Lasix] 40 mg PO DAILY - Plan Plan:: ASSESSMENT AND PLAN DIASTOLIC CONGESTIVE HEART FAILURE AND COR PULMONALE-still responding well to diuresis but I think we are at the end of diuresis. -IV furosemide once today and transition to oral diuretics tomorrow -Daily weights -Continue medical management -Physical therapy consult BILATERAL PNEUMONIA-no significant fevers and white count normal. Culture did grow out alpha strep. -He has completed adequate antibiotic therapy ACUTE ON CHRONIC HYPOXIC AND HYPERCAPNIC RESPIRATORY FAILURE-secondary to b ilateral infiltrates and congestive heart failure. Respiratory status stable 2 L of supplemental oxygen. -He has completed antibiotic therapy -Discontinue prednisone HYPOKALEMIA-secondary to diuresis and has improved with supplementation. -Continue twice daily supplementation MORBID OBESITY-BMI down to 45 after diuresis MAINTENANCE ISSUES -DVT prophylaxis; enoxaparin -GI prophylaxis; PPI -Sauceda catheter; removed and voiding on his own -Nutrition; low-sodium -Nicotine dependence; nicotine patch DISPOSITION-anticipate discharge to [place] for subacute rehab after the hospital stay. He should be ready for group home discharge in the next 1 or 2 days. The tentative plan is for discharge to [facility] Saturday if stable. Michael Roman MD
[2020-02-07] MEDS: Enoxaparin 40 MG/0.4 ML Syringe SUBCUT SCH (16:13)
[2020-02-07] MEDS: atorvaSTATin 20 MG Tab PO SCH (21:53)
[2020-02-07] MEDS: Melatonin 3 MG Tab PO PRN (23:48)
[2020-02-08] MEDS: Albuterol/Ipratropium 3.0-0.5 MG/3 ML Neb Soln INH SCH ×2 (07:14→10:58)
[2020-02-08] MEDS: Fluticasone-Salmeterol 232-14 MCG Powder Inhalent INH SCH (07:15)
[2020-02-08] MEDS: Glycopyrrolate 15.6 MCG Cap.W.Dev Kit of 6 IH SCH (07:16)
[2020-02-08] MEDS: Potassium Chloride 20 MEQ Tab.ER PO SCH (08:00)
[2020-02-08] MEDS: Pantoprazole 40 MG Tab.CR PO SCH (08:01)
[2020-02-08] MEDS: Aspirin 81 MG Tab.Chew PO SCH (08:01)
[2020-02-08] MEDS: Levothyroxine 88 MCG Tab PO SCH (08:01)
[2020-02-08] MEDS: Spironolactone 25 MG Tab PO SCH (08:01)
[2020-02-08] MEDS: Finasteride 5 MG Tab PO SCH (08:02)
[2020-02-08] MEDS: Nicotine 21 MG/24 Hr Patch TRDERM SCH (08:06)
[2020-02-08] MEDS: Tamsulosin 0.4 MG Cap.ER PO SCH (08:06)
[2020-02-08] MEDS ORDERED: Furosemide 40 MG Tab PO SCH (09:00)
--- NOTE | 2020-02-08 10:42 | PCM.DCSUM1 ---
Discharge Summary - Hospital Course Brief History: Mr. Hoskins is a 64-year-old gentleman who was admitted through the emergency department with weakness and shortness of breath, secondary to acute on chronic hypoxic and hypercapnic respiratory failure. He was also noted to have significant weight increase with marked peripheral edema and pulmonary edema. - Discharge Data Discharge Date: 02/08/20 Discharge Disposition: DC/Tfer to SNF 03 Condition: Fair - Referral to Home Health Primary Care Physician: PCP None - Discharge Diagnosis/Problem(s) (1) Peripheral edema SNOMED Code(s): 412358523 ICD Code: R60.9 - EDEMA, UNSPECIFIED Status: Acute Current Visit: Yes (2) COPD exacerbation SNOMED Code(s): 089814261 ICD Code: J44.1 - CHRONIC OBSTRUCTIVE PULMONARY DISEASE W (ACUTE) EXACER BATION Status: Acute Current Visit: Yes (3) Acute on chronic respiratory failure with hypoxia and hypercapnia SNOMED Code(s): 40595582638410 ICD Code: J96.21 - ACUTE AND CHRONIC RESPIRATORY FAILURE WITH HYPOXIA; J96.22 - ACUTE AND CHRONIC RESPIRATORY FAILURE WITH HYPERCAPNIA Status: Acute Current Visit: Yes (4) Pneumonia SNOMED Code(s): 165320701 ICD Code: J18.9 - PNEUMONIA, UNSPECIFIED ORGANISM Status: Acute Current Visit: Yes (5) Obesity hypoventilation syndrome SNOMED Code(s): 536953037 ICD Code: E66.2 - MORBID (SEVERE) OBESITY WITH ALVEOLAR HYPOVENTILATION Status: Acute Current Visit: Yes (6) Weakness generalized SNOMED Code(s): 58527117 ICD Code: R53.1 - WEAKNESS Status: Acute Current Visit: Yes (7) Tobacco dependence SNOMED Code(s): 56475123 ICD Code: F17.200 - NICOTINE DEPENDENCE, UNSPECIFIED, UNCOMPLICATED Status: Chronic Current Visit: No (8) Morbid obesity SNOMED Code(s): 041005909 ICD Code: E66.01 - MORBID (SEVERE) OBESITY DUE TO EXCESS CALORIES Status: Chronic Current Visit: Yes - Patient Summary/Data Consults: Consultations 01/27/20 06:15 Consult to Physician [CONS] Stat Consulting Provider: Lorenzo Douglas Courtesy Call Completed to Consulting Physician: Yes Reason for Consult: Intubation, art line 02/04/20 13:21 PT Evaluation and Treatment [CONS] Routine Please Evaluate and Treat. PT Reason for Consult: Strengthening Special Instructions: transferring to from the ICU This query below is only for informational purposes and is not editable. Admission Diagnosis/Problem: Peripheral edema Hospital Course: Mr. Hoskins is a 64-year-old gentleman who was admitted through the emergency department for management of peripheral and pulmonary edema, with shortness of breath and progressive weakness. Mr. Hoskins has had a longstanding history of COPD and obesity related hypoventilation causing chronic hypoxic and hypercapnic respiratory failure. He has been hospitalized previously at this facility requiring intubation and mechanical ventilation. He has been at home now over the past several weeks and during that period of time has developed progressive peripheral edema, increased shortness of breath, and weakness. On evaluation in the emergency department he is noted to have marked peripheral edema with associated venous stasis. At the present time does not appear to be infected, white blood cell count was only modestly elevated, modest elevation in CRP, and a normal procalcitonin. Chest x-ray shows pulmonary vascular congestion and pulmonary edema. Vital signs have been stable while he has been in the emergency department and he has remained afebrile. He was started on IV diuretic therapy furosemide 40 mg IV twice daily and remained on this through most of his hospital stay. Antibiotics were initially held and over the first 24 hours showed no evidence of obvious infection. Unfortunately during the body art technician hours after admission he did develop progressive respiratory failure with severe hypercapnia. He was transferred to the intensive care unit and intubated for management of acute on chronic respiratory failure. Follow-up chest x-ray obtained the following day did show evidence of bilateral infiltrates and he was started on broad-spectrum IV antibiotic therapy with vancomycin and Zosyn. 2 sets of blood cultures were obtained during hosp italization both of which had shown no growth by the time of discharge. Sputum culture was obtained after intubation and did grew out an alpha strep. By the time of discharge she had completed adequate course of IV antibiotic therapy. He had ongoing good diuresis during hospitalization and by the time of discharge was down approximately 50 pounds. This resulted in good improvement in his venous stasis and peripheral edema. He was on the ventilator approximately 8 days and after good diuresis was able to be extubated. Respiratory status remained stable through the rest of his hospital stay. His living situation at home is not felt to be safe for him to return there and he is profoundly weak. He will be discharged to [facility] for restorative physical therapy and Occupational Therapy. Activity will be as tolerated and he should be on a low-sodium diet. Follow-up with primary care will be as needed at the [facility] and a BMP will be obtained in 1 week. - Patient Instructions Diet: Low Sodium Activity: As Tolerated Other/Special Instructions: Follow-up lab in 1 week with BMP - Discharge Plan *PRESCRIPTION DRUG MONITORING PROGRAM REVIEWED*: Not Applicable *COPY OF PRESCRIPTION DRUG MONITORING REPORT IN PATIENT RAJ: Not Applicable Prescriptions/Med Rec: Spironolactone [Aldactone] 25 mg PO DAILY #30 tablet Nicotine [Habitrol] 21 mg TRDERM DAILY #30 patch Potassium Chloride [Klor-Con M20] 40 meq PO BID #120 tab.er Nicotine Polacrilex [Nicorelief] 2 mg CHEW Q1H PRN #100 gum PRN Reason: Other Levothyroxine [Synthroid] 88 mcg PO DAILY@0730 #30 tablet Home Medications: Home Meds Aspirin [Halfprin] 81 mg PO DAILY 09/18/18 [History] Budesonide/Formoterol [Symbicort 160-4.5 MCG] 2 puff INH BID 09/18/18 [History] Glucosamn/Condroitn/C/Mn/[place] [[facility]vs Glucosamine Chondroit Cplt] 1 tab PO DAILY 09/18/18 [History] Omeprazole Magnesium [Prilosec Otc] 20 mg PO BID 09/18/18 [History] atorvaSTATin [Lipitor] 40 mg PO DAILY 09/18/18 [History] Acetaminophen [Tylenol] 650 mg PO Q4H PRN #100 tablet 10/01/18 [Rx] Albuterol [Proventil HFA] 2 puff INH Q4H PRN #1 inhaler 10/01/18 [Rx] Furosemide 40 mg PO DAILY 10/16/18 [History] Ferrous Fumarate [Ferrocite] 324 mg PO BID 08/28/19 [History] Meloxicam 15 mg PO DAILY 08/28/19 [History] Tamsulosin [Flomax] 0.8 mg PO DAILY 08/28/19 [History] Tiotropium [Spiriva HandiHaler] 18 mcg INH DAILY 08/28/19 [History] Finasteride [Proscar] 5 mg PO DAILY 01/26/20 [History] Albuterol/Ipratropium [DuoNeb 3.0-0.5 MG/3 ML] 3 ml INH Q4H PRN #90 neb 02/08/20 [Rx] Levothyroxine [Synthroid] 88 mcg PO DAILY@0730 #30 tablet 02/08/20 [Rx] Nicotine Polacrilex [Nicorelief] 2 mg CHEW Q1H PRN #100 gum 02/08/20 [Rx] Nicotine [Habitrol] 21 mg TRDERM DAILY #30 patch 02/08/20 [Rx] Potassium Chloride [Klor-Con M20] 40 meq PO BID #120 tab.er 02/08/20 [Rx] Spironolactone [Aldactone] 25 mg PO DAILY #30 tablet 02/08/20 [Rx] Oxygen Flow Rate (L/min): 2 Maintain SPO2% less than: 92 Maintain SpO2% greater than: 88 Referrals: Neeru Ro DO [Physician] - - Discharge Summary/Plan Comment DC Time >30 min.: No - Patient Data Vitals - Most Recent: Last Vital Signs Temp 97.7 F 02/08/20 08:00 Pulse 89 02/08/20 08:00 Resp 20 02/08/20 08:00 BP 100/71 02/08/20 08:00 Pulse Ox 91 L 02/08/20 08:00 Weight - Most Recent: 352 lb 9.6 oz I&O - Last 24 hours: Intake & Output 02/07/20 02/08/20 02/08/20 22:59 06:59 14:59 Intake Total 540 780 Output Total 100 400 Balance -100 140 780 Med Orders - Current: Current Medications Acetaminophen (Tylenol) 650 mg PO Q4H PRN PRN Reason: Pain/Fever Last Admin: 02/07/20 16:23 Dose: 650 mg Documented by: Albuterol (Ventolin Hfa) 0 gm INH Q4H PRN PRN Reason: Shortness of Breath Albuterol (Proventil Neb Soln) 2.5 mg NEB Q2H PRN PRN Reason: Shortness of Breath Last Admin: 01/28/20 15:08 Dose: 2.5 mg Documented by: Albuterol/Ipratropium (Duoneb 3.0-0.5 Mg/3 Ml) 3 ml INH QIDRT [facility] Last Admin: 02/08/20 07:14 Dose: 3 ml Documented by: Aspirin (Aspirin) 81 mg PO DAILY [facility] Last Admin: 02/08/20 08:01 Dose: 81 mg Documented by: Atorvastatin Calcium (Lipitor) 40 mg PO BEDTIME [facility] Last Admin: 02/07/20 21:53 Dose: 40 mg Documented by: Enoxaparin Sodium (Lovenox) 40 mg SUBCUT Q24H [facility] Last Admin: 02/07/20 16:13 Dose: 40 mg Documented by: Finasteride (Proscar) 5 mg PO DAILY [facility] Last Admin: 02/08/20 08:02 Dose: 5 mg Documented by: Furosemide (Lasix) 40 mg PO DAILY [facility] Last Admin: 02/08/20 08:01 Dose: 40 mg Documented by: Glycopyrrolate (Seebri Neohaler) 15.6 mcg IH BIDRT [facility] Last Admin: 02/08/20 07:16 Dose: 1 inhalation Documented by: Hydromorphone HCl (Dilaudid) 0.5 mg IVPUSH Q2H PRN PRN Reason: Pain Last Admin: 02/04/20 02:50 Dose: 0.5 mg Documented by: Levothyroxine Sodium (Synthroid) 88 mcg PO DAILY@0730 [facility] Last Admin: 02/08/20 08:01 Dose: 88 mcg Documented by: Magnesium Hydroxide (Milk Of Magnesia) 30 ml PO BID PRN PRN Reason: Constipation Last Admin: 02/07/20 10:16 Dose: 30 ml Documented by: Melatonin (Melatonin) 9 mg PO BEDTIME PRN PRN Reason: Insomnia Last Admin: 02/07/20 23:48 Dose: 9 mg Documented by: Nicotine (Habitrol) 21 mg TRDERM DAILY [facility] Last Admin: 02/08/20 08:06 Dose: 21 mg Documented by: Nicotine Polacrilex (Nicorelief) 2 mg CHEW Q1H PRN PRN Reason: Other Ondansetron HCl (Zofran) 4 mg IV Q4H PRN PRN Reason: Nausea/Vomiting Oxycodone HCl (Oxycodone) 10 mg PO Q4H PRN PRN Reason: Pain (moderate 4-6) Last Admin: 02/07/20 23:49 Dose: 10 mg Documented by: Pantoprazole Sodium (Protonix) 40 mg PO DAILY@0730 [facility] Last Admin: 02/08/20 08:01 Dose: 40 mg Documented by: Polyethylene Glycol (Miralax) 17 gm PO DAILY PRN PRN Reason: Constipation Last Admin: 02/06/20 19:08 Dose: 17 gm Documented by: Potassium Chloride (Klor-Con M20) 40 meq PO BID [facility] Last Admin: 02/08/20 08:00 Dose: 40 meq Documented by: Fluticasone/Salmeterol (Fluticasone-Salmeterol 232-14 Mcg Powder Inha) 1 puff INH BIDRT [facility] Last Admin: 02/08/20 07:15 Dose: 1 puff Documented by: Sodium Biphosphate/Sodium Phosphate (Fleet Enema) 133 ml RECTAL DAILY PRN PRN Reason: Constipation Sodium Chloride (Saline Flush) 10 ml FLUSH ASDIRECTED PRN PRN Reason: Keep Vein Open Spironolactone (Aldactone) 25 mg PO DAILY [facility] Last Admin: 02/08/20 08:01 Dose: 25 mg Documented by: Tamsulosin HCl (Flomax) 0.4 mg PO PCBREAKFAST [facility] Last Admin: 02/08/20 08:06 Dose: 0.4 mg Documented by: Discontinued Medications Albuterol/Ipratropium (Duoneb 3.0-0.5 Mg/3 Ml) 3 ml NEB ONETIME ONE Stop: 01/26/20 10:05 Last Admin: 01/26/20 10:38 Dose: 3 ml Documented by: Albuterol/Ipratropium (Duoneb 3.0-0.5 Mg/3 Ml) 3 ml INH TIDRT [facility] Last Admin: 02/01/20 21:15 Dose: 3 ml Documented by: Aspirin (Halfprin) 81 mg PO DAILY [facility] Atorvastatin Calcium (Lipitor) 40 mg PO DAILY [facility] Bisacodyl (Dulcolax) 10 mg PO ONETIME ONE Stop: 02/06/20 16:01 Last Admin: 02/06/20 15:45 Dose: 10 mg Documented by: Bisacodyl (Dulcolax) 10 mg RECTAL ONETIME ONE Stop: 02/07/20 09:31 Last Admin: 02/07/20 10:15 Dose: 10 mg Documented by: Finasteride (Proscar) 5 mg PO DAILY [facility] Furosemide (Lasix) 40 mg IVPUSH NOW ONE Stop: 01/26/20 11:51 Last Admin: 01/26/20 12:30 Dose: 40 mg Documented by: Furosemide (Lasix) 40 mg IVPUSH NOW ONE Stop: 01/26/20 21:01 Last Admin: 01/26/20 21:19 Dose: 40 mg Documented by: Furosemide (Lasix) 40 mg IVPUSH Q12H [facility] Stop: 01/31/20 09:00 Last Admin: 01/31/20 07:55 Dose: 40 mg Documented by: Furosemide (Lasix) 40 mg IVPUSH Q12H [facility] Last Admin: 02/01/20 06:07 Dose: Not Given Documented by: Furosemide (Lasix) 40 mg IVPUSH ONETIME ONE Stop: 02/01/20 14:16 Last Admin: 02/01/20 14:33 Dose: 40 mg Documented by: Furosemide (Lasix) 40 mg IVPUSH Q12H [facility] Last Admin: 02/05/20 07:30 Dose: 40 mg Documented by: Furosemide (Lasix) 40 mg IVPUSH DAILY [facility] Last Admin: 02/07/20 10:07 Dose: 40 mg Documented by: Furosemide (Lasix) 40 mg IVPUSH ONETIME ONE Stop: 02/06/20 20:01 Last Admin: 02/06/20 20:00 Dose: 40 mg Documented by: Heparin Sodium (Porcine) (Heparin Sodium) Confirm Administered Dose 5,000 units .ROUTE .STK-MED ONE Stop: 01/27/20 06:10 Last Admin: 01/27/20 07:12 Dose: Not Given Documented by: Propofol (Diprivan 100 Ml) Confirm Administered Dose 100 mls @ as directed .ROUTE .STK-MED ONE Stop: 01/27/20 06:19 Last Admin: 01/27/20 07:12 Dose: Not Given Documented by: Piperacillin/Tazobactam/ (Dextrose 3.375 gm/ Premix) 50 mls @ 100 mls/hr IV Q6H [facility] Last Admin: 01/30/20 08:23 Dose: 100 mls/hr Documented by: Propofol (Diprivan 100 Ml) 100 mls @ 5.443 mls/hr IV TITRATE [facility]; Protocol Last Admin: 02/03/20 06:15 Dose: 35 mcg/kg/min, 38.102 mls/hr Documented by: Vancomycin HCl 2 gm/ Sodium (Chloride) 250 mls @ 166 mls/hr IV Q12H [facility] Last Admin: 01/28/20 22:22 Dose: 166 mls/hr Documented by: Heparin Sodium (Porcine) 5,000 (units/ Sodium Chloride) 501 mls @ 1 mls/hr IV ASDIRECTED [facility] Last Admin: 02/02/20 13:12 Dose: 1 mls/hr Documented by: Sodium Chloride (Normal Saline) 1,000 mls @ 0 mls/hr IV ASDIRECTED [facility] Last Admin: 01/27/20 08:19 Dose: 15 mls/hr Documented by: Sodium Chloride (Normal Saline) 1,000 mls @ 0 mls/hr IV ASDIRECTED [facility] Last Admin: 01/27/20 08:20 Dose: 15 mls/hr Documented by: Propofol (Diprivan 100 Ml) Confirm Administered Dose 100 mls @ as directed .ROUTE .[facility] ONE Stop: 01/27/20 22:01 Last Admin: 01/27/20 22:05 Dose: Not Given Documented by: Levofloxacin/Dextrose 750 mg/ (Premix) 150 mls @ 100 mls/hr IV Q24H [facility] Stop: 02/05/20 10:01 Last Admin: 02/05/20 09:46 Dose: 100 mls/hr Documented by: Potassium Chloride 20 meq/Lidocaine HCl 2 ml/ Sodium Chloride 112 mls @ 56 mls/hr IV Q2H [facility] Stop: 01/28/20 21:59 Last Admin: 01/28/20 20:47 Dose: 56 mls/hr Documented by: Vancomycin HCl 1.5 gm/ Sodium (Chloride) 250 mls @ 166 mls/hr IV Q12H [facility] Potassium Chloride 20 meq/ (Premix) 100 mls @ 50 mls/hr IV Q2H [facility] Stop: 01/30/20 12:59 Last Admin: 01/30/20 12:20 Dose: 50 mls/hr Documented by: Potassium Chloride 20 meq/ (Premix) 100 mls @ 50 mls/hr IV Q2H [facility] Stop: 01/30/20 19:59 Last Admin: 01/30/20 18:44 Dose: 50 mls/hr Documented by: Potassium Chloride 20 meq/ (Premix) 100 mls @ 50 mls/hr IV Q2H [facility] Stop: 01/31/20 12:59 Last Admin: 01/31/20 12:00 Dose: 50 mls/hr Documented by: Potassium Chloride 20 meq/Lidocaine HCl 2 ml/ Sodium Chloride 112 mls @ 56 mls/hr IV Q2H [facility] Stop: 01/31/20 17:59 Last Admin: 01/31/20 17:00 Dose: 56 mls/hr Documented by: Potassium Chloride 20 meq/Lidocaine HCl 2 ml/ Sodium Chloride 112 mls @ 56 mls/hr IV Q2H [facility] Stop: 01/31/20 23:59 Last Admin: 01/31/20 22:21 Dose: 56 mls/hr Documented by: Potassium Chloride 20 meq/Lidocaine HCl 2 ml/ Sodium Chloride 112 mls @ 50 mls/hr IV Q2H [facility] Stop: 02/02/20 10:44 Last Admin: 02/02/20 11:20 Dose: 50 mls/hr Documented by: Lidocaine HCl (Xylocaine-Mpf 1%) Confirm Administered Dose 2 mls @ as directed .ROUTE .STK-MED ONE Stop: 02/03/20 06:36 Last Admin: 02/03/20 08:17 Dose: Not Given Documented by: Potassium Chloride (Kcl 20 Meq In Water 100 Ml) Confirm Administered Dose 100 mls @ as directed .ROUTE .STK-MED ONE Stop: 02/03/20 06:36 Last Admin: 02/03/20 08:17 Dose: Not Given Documented by: Potassium Chloride 20 meq/Lidocaine HCl 2 ml/ Sodium Chloride 112 mls @ 56 mls/hr IV Q2H [facility] Stop: 02/03/20 10:29 Last Admin: 02/03/20 09:25 Dose: 56 mls/hr Documented by: Potassium Chloride 20 meq/Lidocaine HCl 2 ml/ Sodium Chloride 112 mls @ 50 mls/hr IV Q2H [facility] Stop: 02/03/20 18:59 Last Admin: 02/03/20 17:17 Dose: 50 mls/hr Documented by: Potassium Chloride 20 meq/Lidocaine HCl 2 ml/ Sodium Chloride 112 mls @ 50 mls/hr IV Q2H [facility] Stop: 02/04/20 04:59 Last Admin: 02/04/20 02:27 Dose: Not Given Documented by: Potassium Chloride 40 meq/ (Lidocaine HCl 4 ml/ Premix) 104 mls @ 26 mls/hr IV ONETIME ONE Stop: 02/04/20 05:29 Last Admin: 02/04/20 02:27 Dose: Not Given Documented by: Potassium Chloride 20 meq/ (Premix) 0 mls @ 50 mls/hr IV ONETIME ONE Stop: 02/04/20 01:57 Last Admin: 02/04/20 02:29 Dose: Not Given Documented by: Lidocaine HCl 2 ml/ Potassium (Chloride) 102 mls @ 51 mls/hr INJECT Q2H [facility] Stop: 02/04/20 06:29 Last Admin: 02/04/20 04:45 Dose: 51 mls/hr Documented by: Potassium Chloride 20 meq/Lidocaine HCl 2 ml/ Sodium Chloride 112 mls @ 56 mls/hr IV Q2H [facility] Stop: 02/04/20 13:59 Last Admin: 02/04/20 13:11 Dose: 56 mls/hr Documented by: Lidocaine HCl (Xylocaine-Mpf 1%) 5 ml INJECT ONETIME ONE Stop: 01/26/20 13:06 Last Admin: 01/26/20 13:33 Dose: 5 ml Documented by: Lidocaine HCl (Xylocaine-Mpf 1%) 5 ml INJECT ONETIME ONE Stop: 02/04/20 01:57 Last Admin: 02/04/20 02:21 Dose: Not Given Documented by: Methylprednisolone Sodium Succinate (Solu-Medrol) 40 mg IVPUSH Q6H [facility] Last Admin: 01/29/20 08:27 Dose: 40 mg Documented by: Methylprednisolone Sodium Succinate (Solu-Medrol) 40 mg IVPUSH Q12H [facility] Last Admin: 01/30/20 08:20 Dose: 40 mg Documented by: Methylprednisolone Sodium Succinate (Solu-Medrol) 40 mg IVPUSH Q24H [facility] Last Admin: 02/04/20 07:55 Dose: 40 mg Documented by: Morphine Sulfate (Morphine) 1 - 2 mg IVPUSH Q2H PRN PRN Reason: Pain Last Admin: 01/26/20 22:37 Dose: 2 mg Documented by: Oxycodone/Acetaminophen (Percocet 325-5 Mg) 1 tab PO Q6H PRN PRN Reason: Pain (severe 7-10) Last Admin: 01/27/20 02:43 Dose: 1 tab Documented by: Pantoprazole Sodium (Protonix) 40 mg PO BIDAC [facility] Last Admin: 01/26/20 17:17 Dose: 40 mg Documented by: Pantoprazole Sodium (Protonix Iv) 40 mg IVPUSH DAILY [facility] Last Admin: 02/03/20 08:15 Dose: 40 mg Documented by: Potassium Chloride (Klor-Con M20) 60 meq PO DAILY [facility] Prednisone (Prednisone) 20 mg PO WITHBREAKFAST [facility] Last Admin: 02/07/20 10:02 Dose: 20 mg Documented by: Prednisone (Prednisone) 20 mg PO ONETIME ONE Stop: 02/04/20 17:01 Last Admin: 02/04/20 16:56 Dose: 20 mg Documented by: Sodium Chloride (Saline Flush) 10 ml FLUSH ASDIRECTED PRN PRN Reason: Keep Vein Open Last Admin: 01/26/20 10:41 Dose: 10 ml Documented by: Spironolactone (Aldactone) 12.5 mg PO DAILY [facility] Tamsulosin HCl (Flomax) 0.8 mg PO DAILY [facility] - Exam General: Reports: Alert, Oriented, Cooperative, No Acute Distress Lungs: Reports: Decreased Breath Sounds. Denies: Rales, Rhonchi, Wheezing Cardiovascular: Reports: Regular Rate, Regular Rhythm, No Murmurs GI/Abdominal Exam: Soft, Non-Tender, No Organomegaly, No Distention
== END 2020-02-08 13:45 | DRG 207 ==
LOC: JP.ED 09:33 → JP.MS 12:30 → UNDOADMIN 12:30 → JP.MS 13:52 → JP.ICU 01-27 05:45 → JP.MS 01-27 05:45 → JP.ICU 02-04 14:44 → JP.MS 02-04 14:44 → UNDODISIN 02-08 13:45
PROVIDERS: ADMIT Hospitalist; ATTEND Internal Medicine
PROC: 0BH17EZ Insertion of Endotracheal Airway into Trachea, Via Natural or Artificial Opening (ICD-10-PCS; principal; 2020-01-27)
PROC: 5A1955Z Respiratory Ventilation, Greater than 96 Consecutive Hours (ICD-10-PCS; 2020-01-27)
DX: L03.116 Cellulitis of left lower limb (principal); L03.115 Cellulitis of right lower limb; E66.9 Obesity, unspecified; J96.21 Acute and chronic respiratory failure with hypoxia; J18.9 Pneumonia, unspecified organism; R53.1 Weakness; J41.8 Mixed simple and mucopurulent chronic bronchitis; I10 Essential (primary) hypertension; I50.31 Acute diastolic (congestive) heart failure; J44.1 Chronic obstructive pulmonary disease with (acute) exacerbation; E66.2 Morbid (severe) obesity with alveolar hypoventilation; Z68.43 Body mass index [BMI] 50.0-59.9, adult; J96.22 Acute and chronic respiratory failure with hypercapnia; Z79.51 Long term (current) use of inhaled steroids; I11.0 Hypertensive heart disease with heart failure; F17.200 Nicotine dependence, unspecified, uncomplicated; I87.8 Other specified disorders of veins; E03.9 Hypothyroidism, unspecified; Z79.82 Long term (current) use of aspirin; Z79.899 Other long term (current) drug therapy; Z79.890 Hormone replacement therapy; Z88.8 Allergy status to other drugs, medicaments and biological substances; K21.9 Gastro-esophageal reflux disease without esophagitis; M19.90 Unspecified osteoarthritis, unspecified site; F17.210 Nicotine dependence, cigarettes, uncomplicated; I27.81 Cor pulmonale (chronic)
CPT/HCPCS: 36415; 51702; 71045; 71045-26; 80048; 80053; 80202; 82803; 83605; 83735; 84132; 84145; 85025; 85027; 86140; 87040; 87070; 87077; 87205; 93306; 94002; 94003; 94640; 94799; 97110-GP; 97162-GP; 97530-GP; 99285; 99285-25; A9270-GY; C9113; J1170; J1644; J1650; J1940; J1956; J2001; J2270; J2543; J2704; J2920; J3370; J3480; J7030; J7040; J7050; J7512; J7620-GY; U0002